=== PATIENT | female | born 1960 | race Caucasian/White ===

== ENCOUNTER → 2020-03-18 13:34 | Outpatient (CLI) | payer OTHER, SELFPAY | PROVIDERS: Visit Provider Physician Assistant | DX: L02.91 Cutaneous abscess, unspecified (principal) | CPT/HCPCS: 87070; 87077; 87147; 87186; 87205 ==

== ENCOUNTER → 2020-03-18 13:55 | Outpatient (CLI) | payer OTHER, SELFPAY ==
--- NOTE | 2020-03-18 14:02 | DI.RAD.S_ITS ---
PROCEDURE: XR FOOT LT MIN 3V INDICATIONS: ulceration bottom foot, r/o osteomyelitis TECHNIQUE: 3 views of the foot were acquired. COMPARISON: None. FINDINGS: Bones: Postsurgical changes are seen from amputation of the 2nd ray at the proximal interphalangeal joint. Chronic mild fracture deformity is seen at the 5th metatarsal shaft. Severe degenerative changes are seen at the 1st metatarsophalangeal joint with destruction and remodeling of the articular surfaces and mild medial subluxation of the 1st distal phalanx relative to the metatarsal head. Small osseous fragments are seen surrounding the 1st metatarsophalangeal joint. There is erosion of the third metatarsal head with degenerative changes at the 3rd metatarsophalangeal joint. Degenerative changes are seen in the interphalangeal joints throughout toes. Degenerative changes are seen at the tarsometatarsal joints. Soft tissues: Soft tissue edema is noted throughout the forefoot. Ulceration at the plantar aspect of the forefoot is seen on lateral view. IMPRESSION: Severe degenerative changes are seen at the 1st metatarsophalangeal joint that may be related to acute or chronic osteomyelitis and septic arthritis versus neuropathic arthropathy, prior trauma, or inflammatory arthropathy with secondary degenerative changes. There is also severe erosion of the 3rd metatarsal head. Recommend correlation clinical findings. MRI may be obtained for further evaluation if indicated clinically. Dictated by: Wilfrido Cisse M.D. on 03/18/2020 at 16:16 Approved by: Wilfrido Cisse M.D. on 03/18/2020 at 16:21
[2020-03-18 15:12] LABS: Hematocrit 31.8 % (36-46); Hemoglobin 10.4 g/dL (12.0-16.0); Mean Corpuscular HGB Conc 32.6 % (30-36); Mean Corpuscular Volume 92.3 fL (80-100); Platelet Count 245 X10^3/uL (150-400); Red Blood Cell Count 3.45 X10^6/uL (4.0-5.2); Red Cell Distribution Width 14.8 % (11.6-14.8); White Blood Cell Count 12.1 X10^3/uL (4.5-11.0)
[2020-03-18 15:35] LABS: BUN Creatinine Ratio 16.2 (6-22); Blood Urea Nitrogen 21 mg/dL (7-17); Calcium 9.2 mg/dL (8.4-10.2); Carbon Dioxide 37 mmol/L (22-32); Chloride 98 mmol/L (98-107); Estimated Glomerular Filt Rate 41.8 mL/min (>60); Glucose 92 mg/dL (80-110); HEMOLYSIS < 15 (0-50); Sodium 136 mmol/L (137-145)
[2020-03-18 15:39] LABS: Neutrophils Absolute Manual 8833 /uL (3000-5900); Platelet Estimate Adequate on smear; RBC Morphology Normal Morphology; Total Cells Counted 100
[2020-03-18 16:02] LABS: C-Reactive Protein Quant 13.8 mg/dL (<1.0)
[2020-03-18 18:13] LABS: Erythrocyte Sedimentation Rate 68 MM/HR (0-20)
== END ==
PROVIDERS: PCP Family Medicine; Referring Provider Physician Assistant; Visit Provider Physician Assistant
DX: L03.90 Cellulitis, unspecified (principal); M25.472 Effusion, left ankle; Z89.422 Acquired absence of other left toe(s)
CPT/HCPCS: 36415; 73630; 80048; 85025; 85651; 86140

== ENCOUNTER 2020-03-18 19:08 | Inpatient (IN) | payer OTHER, SELFPAY ==
[2020-03-18] VITALS (13 sets, daily range): BP systolic 103–143; BP diastolic 54–69; PULSE 65–80; RESP 14–32; TEMP 36.7; O2SAT 80–99
--- NOTE | 2020-03-18 20:36 | DI.RAD.S_ITS ---
PROCEDURE: XR CHEST 1V INDICATIONS: suspected sepsis TECHNIQUE: One view of the chest was acquired. COMPARISON: None. FINDINGS: Surgical changes and devices: None. Lungs and pleura: Lungs are clear. Platelike atelectasis in the left mid lung is noted. No pleural effusions or pneumothorax. Mediastinum: Mediastinal contours appear normal. Heart size is normal. Bones and chest wall: No suspicious bony lesions. Overlying soft tissues appear unremarkable. IMPRESSION: No acute cardiopulmonary abnormality. Dictated by: Cruz Severino M.D. on 03/18/2020 at 22:28 Approved by: Cruz Severino M.D. on 03/18/2020 at 22:29
[2020-03-18] MEDS: SODIUM CHLORIDE 0.9% 1,000 ML 1000 ML IV (21:17)
[2020-03-18 21:32] LABS: Add Manual Diff / Slide Review NO; Basophils Absolute Auto 0 /uL (0-100); Basophils Percent Auto 0.3 % (0-2); Eosinophils Absolute Auto 200 /uL (0-450); Eosinophils Percent Auto 1.3 % (2-4); Hematocrit 32.5 % (36-46); Hemoglobin 10.7 g/dL (12.0-16.0); Lymphocytes Absolute Auto 2100 /uL (1100-4500); Lymphocytes Percent Auto 17.9 % (25-40); Mean Corpuscular HGB Conc 32.9 % (30-36); Mean Corpuscular Hemoglobin 30.2 PG (26-34); Mean Corpuscular Volume 91.7 fL (80-100); Monocytes Absolute Auto 1300 /uL (0-900); Monocytes Percent Auto 10.7 % (3-14); Neutrophils Absolute Auto 8200 /uL (1500-7000); Neutrophils Percent Auto 69.8 % (50-75); Platelet Count 237 X10^3/uL (150-400); Red Blood Cell Count 3.54 X10^6/uL (4.0-5.2); White Blood Cell Count 11.8 X10^3/uL (4.5-11.0)
[2020-03-18 21:39] LABS: PTT Partial Thromboplastin Tim 29 SECONDS (26.4-36.2)
[2020-03-18 21:40] LABS: Alanine Aminotransferase 19 IU/L (<35); Albumin 3.8 g/dL (3.5-5.0); Albumin Globulin Ratio 1.2 (1.0-2.8); Alkaline Phosphatase 86 U/L (38-126); Aspartate Aminotransferase 28 IU/L (14-36); BUN Creatinine Ratio 19.5 (6-22); Bilirubin Total 0.3 mg/dL (0.2-1.3); Blood Urea Nitrogen 23 mg/dL (7-17); Calcium 9.2 mg/dL (8.4-10.2); Carbon Dioxide 34 mmol/L (22-32); Chloride 98 mmol/L (98-107); Estimated Glomerular Filt Rate 46.7 mL/min (>60); Globulin 3.1 g/dL (1.7-4.1); Glucose 93 mg/dL (80-110); Lipase 96 U/L (23-300); Sodium 135 mmol/L (137-145); Total Protein 6.9 g/dL (6.3-8.2)
[2020-03-18 21:43] LABS: HEMOLYSIS 16 (0-50)
[2020-03-18 21:50] LABS: Potassium 2.7 mmol/L (3.4-5.1)
[2020-03-18 22:03] LABS: Procalcitonin < 0.05 ng/mL (<0.5)
--- NOTE | 2020-03-18 22:17 | ED.RECABL ---
HPI - Recheck/Abnormal Lab/Rx General Chief Complaint: Recheck/Abnormal Lab/Rx Stated Complaint: infection in foot and kidney inection Time Seen by Provider: 03/18/20 22:17 Source: patient Mode of arrival: Ambulatory History of Present Illness HPI narrative: 60-year-old woman with a history of rheumatoid arthritis on biologics to control this, hypertension and hyperlipidemia presents with complaints of a left foot infection and after being seen at the urgent care clinic today noted to have hypokalemia and minor increase in her creatinine level. She was instructed to come to the emergency room to follow-up. She complains of no fevers, vomiting, diarrhea, chest pain, dyspnea, headaches, skin rashes or changes. She does note that her left forefoot is quite tender around the area of the ulcer that has developed in is draining slightly. Related Data Home Medications Medication Instructions Recorded Confirmed atorvastatin 20 mg PO DAILY 03/18/20 03/19/20 hydrochlorothiazide 25 mg PO DAILY 03/18/20 03/18/20 leflunomide 20 mg PO DAILY 03/18/20 03/18/20 metoprolol tartrate 50 mg BID 03/18/20 03/18/20 nortriptyline 50 mg PO DAILY 03/18/20 03/19/20 pregabalin 150 mg PO BID 03/18/20 03/19/20 tofacitinib [Xeljanz] 5 mg PO BID 03/18/20 03/19/20 varenicline [Chantix] BID 03/18/20 venlafaxine 37.5 mg PO BID 03/18/20 03/19/20 Previous Rx's Medication Instructions Recorded doxycycline hyclate 100 mg capsule 100 mg PO BID 7 Days #14 cap 03/18/20 mupirocin 2 % topical ointment 1 applic TOPICAL TID #30 g 03/18/20 Allergies Allergy/AdvReac Type Severity Reaction Status Date / Time No Known Drug Allergies Allergy Unverified 03/18/20 13:11 Review of Systems Review of Systems ROS Unobtainable: All systems reviewed & are unremarkable except as noted in HPI and below Patient History Medical History Hyperlipidemia Hypertension Rheumatoid arthritis Surgical History History of amputation of toe Family History Father Cancer Mother Hypertension Social History household members: significant other, family and children Smoking Status: Current every day smoker alcohol intake: current Smoking Status: Current every day smoker Exam Narrative Exam Narrative: General: Healthy appearing, in no acute distress. Able to give a complete and coherent history. Well-nourished well-developed HEENT: Moist mucous membranes, normal sclera with reactive pupils, Neck: No JVD, supple Respiratory: Lungs are clear to auscultation, no wheezing no rales no rhonchi. Full and symmetrical air movement Cardiac: Regular rate and rhythm no murmurs no bruits Abdomen: Soft, nontender, good bowel tones, no flank pain Skin: Warm and dry, no rashes Neurologic: Grossly neurologically intact with no obvious asymmetries or abnormalities Extremities: Left foot and ankle/lower calf are edematous. There is an approximately 1 cm in diameter wound to the bottom of the left forefoot that is open and with mild palpation expresses purulence material and it is clear that there is a deeper ulcer underneath. It is tender to the touch without surrounding erythema Psych: Cooperative, appropriate insight and affect Initial Vital Signs Initial Vital Signs: Vital Signs Temperature 98.0 F 03/18/20 19:20 Pulse Rate 68 03/18/20 19:20 Respiratory Rate 20 03/18/20 19:20 Blood Pressure 103/54 L 03/18/20 19:20 Pulse Oximetry 98 03/18/20 19:20 Course Orders Ordered: ED Orders 03/18/20 22:20 Blood Culture Stat 03/18/20 23:18 Education, smoking cessation ONGOING 03/18/20 23:23 Consult to Discharge Planning Routine Consult to Occupational Therapy Evaluate & Treat Consult to Physical Therapy Evaluate & Treat 03/18/20 23:45 COVID19 Stat 03/19/20 03:18 Wound Culture and Gram Stain Stat 03/19/20 04:52 Complete Blood Count AUTO DIFF DAILY Comprehensive Metabolic Panel DAILY Prothrombin Time INR DAILY Acetaminophen (Acetaminophen 325 Mg Tablet) 650 mg PO Q6HR PRN PRN Reason: Fever/Mild Pain (1-3) Atorvastatin Calcium (Atorvastatin 20 Mg Tablet) 20 mg PO DAILY [facility] Docusate Sodium (Docusate 100 Mg Capsule) 100 mg PO BID [facility] Enoxaparin Sodium (Enoxaparin 40 Mg/0.4 Ml Syringe) 40 mg SUBCUT DAILY [facility] Hydrochlorothiazide (Hydrochlorothiazide 25 Mg Tablet) 25 mg PO DAILY [facility] Hydromorphone HCl (Hydromorphone 0.5 Mg Inj) 0.5 mg IV Q15MIN PRN PRN Reason: Pain, Last Admin: 03/18/20 23:10 Dose: 0.5 mg Documented by: JOSE Hydromorphone HCl (Hydromorphone 0.5 Mg Inj) 0.5 mg IV Q6H PRN PRN Reason: Pain, Moderate (4-6) Last Admin: 03/19/20 01:48 Dose: 0.5 mg Documented by: NATHEN Sodium Chloride (Normal Saline 0.9%) 1,000 mls @ 100 mls/hr IV CONT [facility] Last Admin: 03/19/20 01:07 Dose: 100 mls/hr Documented by: NATHEN Mupirocin (Mupirocin 22 Gm Oint) 1 applic TOP TID [facility] Naloxone HCl (Naloxone 0.4 Mg/Ml Vial) 0.2 mg IV Q2MIN PRN PRN Reason: Opiate Reversal Nortriptyline HCl (Nortriptyline Hcl 25 Mg Capsule) 50 mg PO DAILY [facility] Ondansetron HCl (Ondansetron 4 Mg Odt) 4 mg PO Q8HR PRN PRN Reason: Nausea And Vomiting Oxycodone HCl (Oxycodone Ir 5 Mg Tablet) 5 mg PO Q6HR PRN PRN Reason: Pain, Moderate (4-6) Pantoprazole Sodium (Pantoprazole 20 Mg Tablet) 20 mg PO 0600 [facility] Last Admin: 03/19/20 05:43 Dose: 20 mg Documented by: NATHEN Pregabalin (Pregabalin 75 Mg Capsule) 150 mg PO BID [facility] Sennosides (Sennosides 8.6 Mg Tablet) 17.2 mg PO BEDTIME PRN PRN Reason: constipation Sodium Chloride (Sodium Chloride 0.9% Flush) 10 ml IV BID [facility] Sodium Chloride (Sodium Chloride 0.9% Flush) 10 ml IV PRN PRN PRN Reason: Flush Discontinued Medications Sodium Chloride (Normal Saline 0.9%) 1,000 mls @ 1,000 mls/hr IV BOLUS ONE Stop: 03/18/20 21:35 Last Infusion: 03/18/20 22:36 Dose: 0 mls/hr Documented by: Admin: 03/18/20 21:17 Dose: 1,000 mls/hr Documented by: JOSE Piperacillin Sod/Tazobactam (Sod 4.5 gm/ Sodium Chloride) 100 mls @ 200 mls/hr IV NOW ONE Stop: 03/18/20 23:14 Last Infusion: 03/18/20 23:45 Dose: 0 mls/hr Documented by: Admin: 03/18/20 23:05 Dose: 200 mls/hr Documented by: JOSE Metronidazole (Flagyl) 500 mg in 100 mls @ 100 mls/hr IV NOW ONE Stop: 03/18/20 23:44 Last Admin: 03/18/20 23:04 Dose: 100 mls/hr Documented by: JOSE Potassium Chloride 40 meq/ (Sodium Chloride) 520 mls @ 130 mls/hr IV NOW ONE Stop: 03/19/20 02:58 Last Infusion: 03/19/20 03:32 Dose: 130 mls/hr Documented by: NATHEN Cosigned by: ALEXIS Admin: 03/18/20 23:32 Dose: 130 mls/hr Documented by: JOSE Cosigned by: CHESTER Ondansetron HCl (Ondansetron 4 Mg/2 Ml Inj) 4 mg IV NOW ONE Stop: 03/18/20 22:46 Last Admin: 03/18/20 23:09 Dose: 4 mg Documented by: JOSE Potassium Chloride (Potassium Chloride 20 Meq Tab) 40 meq PO NOW ONE Stop: 03/18/20 22:59 Last Admin: 03/18/20 23:10 Dose: 40 meq Documented by: JOSE Vital Signs Vital signs: Vital Signs - 8 hr 03/18/20 22:30 03/18/20 22:42 03/18/20 22:43 Pulse Rate 69 78 80 Respiratory Rate 20 32 H 23 Blood Pressure 125/64 143/69 H Pulse Oximetry 03/18/20 23:00 03/18/20 23:01 03/18/20 23:30 Pulse Rate 71 70 71 Respiratory Rate 16 18 18 Blood Pressure 133/68 107/60 Pulse Oximetry 80 L 97 98 MDM - Recheck/Abnormal Lab/Rx Medical Records Attestation: I reviewed the patient's medical records. Lab Data Attestation: I reviewed the patient's lab results. Result diagrams: 03/19/20 04:52 03/19/20 04:52 Labs: Lab Results 03/18/20 03/18/20 03/18/20 Range/Units 21:20 21:20 21:20 WBC 11.8 H (4.5-11.0) X10^3/uL RBC 3.54 L (4.0-5.2) X10^6/uL Hgb 10.7 L (12.0-16.0) g/dL Hct 32.5 L (36-46) % MCV 91.7 (80-100) fL MCH 30.2 (26-34) PG MCHC 32.9 (30-36) % RDW 15.0 H (11.6-14.8) % Plt Count 237 (150-400) X10^3/uL Neut % (Auto) 69.8 (50-75) % Lymph % (Auto) 17.9 L (25-40) % Castro % (Auto) 10.7 (3-14) % Eos % (Auto) 1.3 L (2-4) % Baso % (Auto) 0.3 (0-2) % Neut # (Auto) 8200 H (9638-5526) /uL Lymph # (Auto) 2100 (7158-2600) /uL Castro # (Auto) 1300 H (0-900) /uL Eos # (Auto) 200 (0-450) /uL Baso # (Auto) 0 (0-100) /uL PT 11.0 (10.1-12.7) SECONDS INR 1.0 (0.9-1.3) APTT 29 (26.4-36.2) SECONDS Sodium (137-145) mmol/L Potassium (3.4-5.1) mmol/L Chloride (98-107) mmol/L Carbon Dioxide (22-32) mmol/L BUN (7-17) mg/dL Creatinine (0.52-1.04) mg/dL Estimated GFR (>60) mL/min BUN/Creatinine Ratio (6-22) Glucose (80-110) mg/dL Lactate (0.7-2.1) mmol/L Calcium (8.4-10.2) mg/dL Magnesium (1.6-2.3) mg/dL Total Bilirubin (0.2-1.3) mg/dL AST (14-36) IU/L ALT (<35) IU/L Alkaline Phosphatase (38-126) U/L Total Protein (6.3-8.2) g/dL Albumin (3.5-5.0) g/dL Globulin (1.7-4.1) g/dL Albumin/Globulin Ratio (1.0-2.8) Lipase (23-300) U/L Procalcitonin < 0.05 (<0.5) ng/mL SARS-CoV-2 (PCR) (Negative) 03/18/20 03/18/20 03/18/20 Range/Units 21:20 21:20 21:25 WBC (4.5-11.0) X10^3/uL RBC (4.0-5.2) X10^6/uL Hgb (12.0-16.0) g/dL Hct (36-46) % MCV (80-100) fL MCH (26-34) PG MCHC (30-36) % RDW (11.6-14.8) % Plt Count (150-400) X10^3/uL Neut % (Auto) (50-75) % Lymph % (Auto) (25-40) % Castro % (Auto) (3-14) % Eos % (Auto) (2-4) % Baso % (Auto) (0-2) % Neut # (Auto) (5423-2861) /uL Lymph # (Auto) (9880-0589) /uL Castro # (Auto) (0-900) /uL Eos # (Auto) (0-450) /uL Baso # (Auto) (0-100) /uL PT (10.1-12.7) SECONDS INR (0.9-1.3) APTT (26.4-36.2) SECONDS Sodium 135 L (137-145) mmol/L Potassium 2.7 L* (3.4-5.1) mmol/L Chloride 98 (98-107) mmol/L Carbon Dioxide 34 H (22-32) mmol/L BUN 23 H (7-17) mg/dL Creatinine 1.18 H (0.52-1.04) mg/dL Estimated GFR 46.7 L (>60) mL/min BUN/Creatinine Ratio 19.5 (6-22) Glucose 93 (80-110) mg/dL Lactate 1.0 (0.7-2.1) mmol/L Calcium 9.2 (8.4-10.2) mg/dL Magnesium 1.8 (1.6-2.3) mg/dL Total Bilirubin 0.3 (0.2-1.3) mg/dL AST 28 (14-36) IU/L ALT 19 (<35) IU/L Alkaline Phosphatase 86 (38-126) U/L Total Protein 6.9 (6.3-8.2) g/dL Albumin 3.8 (3.5-5.0) g/dL Globulin 3.1 (1.7-4.1) g/dL Albumin/Globulin Ratio 1.2 (1.0-2.8) Lipase 96 (23-300) U/L Procalcitonin (<0.5) ng/mL SARS-CoV-2 (PCR) (Negative) 03/18/20 Range/Units 23:45 WBC (4.5-11.0) X10^3/uL RBC (4.0-5.2) X10^6/uL Hgb (12.0-16.0) g/dL Hct (36-46) % MCV (80-100) fL MCH (26-34) PG MCHC (30-36) % RDW (11.6-14.8) % Plt Count (150-400) X10^3/uL Neut % (Auto) (50-75) % Lymph % (Auto) (25-40) % Castro % (Auto) (3-14) % Eos % (Auto) (2-4) % Baso % (Auto) (0-2) % Neut # (Auto) (4140-3783) /uL Lymph # (Auto) (3326-5054) /uL Castro # (Auto) (0-900) /uL Eos # (Auto) (0-450) /uL Baso # (Auto) (0-100) /uL PT (10.1-12.7) SECONDS INR (0.9-1.3) APTT (26.4-36.2) SECONDS Sodium (137-145) mmol/L Potassium (3.4-5.1) mmol/L Chloride (98-107) mmol/L Carbon Dioxide (22-32) mmol/L BUN (7-17) mg/dL Creatinine (0.52-1.04) mg/dL Estimated GFR (>60) mL/min BUN/Creatinine Ratio (6-22) Glucose (80-110) mg/dL Lactate (0.7-2.1) mmol/L Calcium (8.4-10.2) mg/dL Magnesium (1.6-2.3) mg/dL Total Bilirubin (0.2-1.3) mg/dL AST (14-36) IU/L ALT (<35) IU/L Alkaline Phosphatase (38-126) U/L Total Protein (6.3-8.2) g/dL Albumin (3.5-5.0) g/dL Globulin (1.7-4.1) g/dL Albumin/Globulin Ratio (1.0-2.8) Lipase (23-300) U/L Procalcitonin (<0.5) ng/mL SARS-CoV-2 (PCR) Negative (Negative) Imaging Data xr foot: Radiologist's Impression: FINDINGS: Bones: Postsurgical changes are seen from amputation of the 2nd ray at the proximal interphalangeal joint. Chronic mild fracture deformity is seen at the 5th metatarsal shaft. Severe degenerative changes are seen at the 1st metatarsophalangeal joint with destruction and remodeling of the articular surfaces and mild medial subluxation of the 1st distal phalanx relative to the metatarsal head. Small osseous fragments are seen surrounding the 1st metatarsophalangeal joint. There is erosion of the third metatarsal head with degenerative changes at the 3rd metatarsophalangeal joint. Degenerative changes are seen in the interphalangeal joints throughout toes. Degenerative changes are seen at the tarsometatarsal joints. Soft tissues: Soft tissue edema is noted throughout the forefoot. Ulceration at the plantar aspect of the forefoot is seen on lateral view. IMPRESSION: Severe degenerative changes are seen at the 1st metatarsophalangeal joint that may be related to acute or chronic osteomyelitis and septic arthritis versus neuropathic arthropathy, prior trauma, or inflammatory arthropathy with secondary degenerative changes. There is also severe erosion of the 3rd metatarsal head. Recommend correlation clinical findings. MRI may be obtained for further evaluation if indicated clinically. Dictated by: Wilfrido Cisse M.D. on 03/18/2020 at 16:16 Chest x-ray: Radiologist's Impression: FINDINGS: Surgical changes and devices: None. Lungs and pleura: Lungs are clear. Platelike atelectasis in the left mid lung is noted. No pleural effusions or pneumothorax. Mediastinum: Mediastinal contours appear normal. Heart size is normal. Bones and chest wall: No suspicious bony lesions. Overlying soft tissues appear unremarkable. IMPRESSION: No acute cardiopulmonary abnormality. Dictated by: Cruz Severino M.D. on 03/18/2020 at 22:28 ECG Data Attestation: I personally reviewed and interpreted this ECG as follows: Interpretation: Sinus rhythm, first-degree block, rate of 66 No acute ischemic changes Normal axis, normal interval MDM Narrative Medical decision making narrative: 60-year-old woman with a left foot ulcer currently on leflunomide to treat her rheumatoid arthritis with significant hypokalemia and developing foot ulcer with likely osteomyelitis involvement. Wound culture is sent from the emergency department. Potassium replacement is initiated. Fluids and antibiotics are started. Patient is admitted to the hospitalist service for initial care. Podiatry consult will likely be appropriate 1st thing in the morning. Wound does appear to need further debridement and more complete assessment regarding the possible osteomyelitis will be required. There is no evidence of sepsis at this time and she is safe for admission to the hospitalist service Discharge Plan Departure Patient Disposition: Admitted As Inpatient Clinical Impression: Hypokalemia Foot ulcer Qualifiers: Laterality: left Non-pressure ulcer stage: unspecified non-pressure ulcer stage Qualified Code(s): L97.529 - Non-pressure chronic ulcer of other part of left foot with unspecified severity Osteomyelitis Qualifiers: Osteomyelitis type: subacute Osteomyelitis location: foot Laterality: left Qualified Code(s): M86.272 - Subacute osteomyelitis, left ankle and foot Admit Date/Time: 03/18/20 23:57 Admit Provider: Maranda Leyva
[2020-03-18] MEDS: metroNIDAZOLE 500 MG/100 ML PIGGYBACK 100 MG IV (23:04)
[2020-03-18] MEDS: PIPERACILLIN/TAZO 4.5 GM in SODIUM CHLORIDE 0.9% 100 ML 200 ML IV (23:05)
[2020-03-18] MEDS: ONDANSETRON 4 MG/2 ML INJ IV (23:09)
[2020-03-18] MEDS: HYDROMORPHONE 0.5 MG INJ IV (23:10)
[2020-03-18] MEDS: POTASSIUM CHLORIDE 20 MEQ TAB 40 MEQ PO (23:10)
[2020-03-18] MEDS: POTASSIUM CHLORIDE 40 MEQ in SODIUM CHLORIDE 0.9% 500 ML 130 ML IV (23:32)
[2020-03-18 23:42] LABS: Magnesium 1.8 mg/dL (1.6-2.3)
[2020-03-19] VITALS (26 sets, daily range): BP systolic 101–145; BP diastolic 62–82; PULSE 71–90; RESP 11–20; TEMP 35.6–37; O2SAT 91–98; BMI 25.0; BMI 25.9
[2020-03-19 00:03] LABS: COVID19 -Nasal RAPID Negative (Negative)
[2020-03-19] MEDS: SODIUM CHLORIDE 0.9% 1,000 ML 100 ML IV (01:07)
[2020-03-19] MEDS: HYDROMORPHONE 0.5 MG INJ IV ×2 (01:48→08:36)
--- NOTE | 2020-03-19 03:22 | PC.NURSE ---
0050 Pt. admitted from ER accompanied by her significant other Saqib Saleh,. Oriented to her room showed her TV , call light & bed controls. Reported had a fall for the last couple months, placed on high fall precautions. Bed alarm activated & instructed not to get OOB without any assistance, Call light within reached. Left plantar foot 2 small wounds [employer] DIRECTOR reported ER MD already sent a wound culture. Picture was taken with pt's. permission. 2x2 dressing changed noted scant serosang. drainage. Lt foot also edematous & erythema noted on top of lt. foot. Medicated with 0.5 mg. of Dilaudid for pain, will cont. POC & monitor.
[2020-03-19 05:28] LABS: Prothrombin Time 11.2 SECONDS (10.1-12.7)
[2020-03-19 05:32] LABS: Alanine Aminotransferase 16 IU/L (<35); Albumin 3.1 g/dL (3.5-5.0); Alkaline Phosphatase 75 U/L (38-126); Aspartate Aminotransferase 21 IU/L (14-36); BUN Creatinine Ratio 19.4 (6-22); Bilirubin Total 0.3 mg/dL (0.2-1.3); Blood Urea Nitrogen 18 mg/dL (7-17); Calcium 8.3 mg/dL (8.4-10.2); Carbon Dioxide 33 mmol/L (22-32); Chloride 105 mmol/L (98-107); Estimated Glomerular Filt Rate > 60.0 mL/min (>60); Glucose 94 mg/dL (80-110); HEMOLYSIS < 15 (0-50); Potassium 3.8 mmol/L (3.4-5.1); Sodium 136 mmol/L (137-145); Total Protein 6.1 g/dL (6.3-8.2)
[2020-03-19 05:34] LABS: Add Manual Diff / Slide Review NO; Basophils Absolute Auto 0 /uL (0-100); Basophils Percent Auto 0.3 % (0-2); Eosinophils Absolute Auto 200 /uL (0-450); Eosinophils Percent Auto 1.7 % (2-4); Hematocrit 30.3 % (36-46); Hemoglobin 9.9 g/dL (12.0-16.0); Lymphocytes Absolute Auto 1800 /uL (1100-4500); Lymphocytes Percent Auto 18.1 % (25-40); Mean Corpuscular HGB Conc 32.8 % (30-36); Mean Corpuscular Hemoglobin 30.2 PG (26-34); Monocytes Absolute Auto 1000 /uL (0-900); Monocytes Percent Auto 9.9 % (3-14); Neutrophils Absolute Auto 6900 /uL (1500-7000); Platelet Count 230 X10^3/uL (150-400); Red Blood Cell Count 3.29 X10^6/uL (4.0-5.2); White Blood Cell Count 9.8 X10^3/uL (4.5-11.0)
[2020-03-19] MEDS: PANTOPRAZOLE 20 MG TABLET PO (05:43)
--- NOTE | 2020-03-19 06:01 | PM.HP.1 ---
History of Present Illness History of Present Illness Date Patient Seen: 03/18/20 Time Patient Seen: 23:25 Chief complaint: infection in foot and kidney inection Narrative: Patient is a 60-year-old female to Sendy Hollins who presented to the ED with 10 at a 10 left foot pain and ulceration. Patient has a history of rheumatoid arthritis, hypertension, and is a smoker who has decreased to 5 cigarettes a day and is currently taking Chantix, also notes a history of a toe amputation. Patient currently takes immunosuppressive drugs: Xeljimz & Leflunomide, along with nortriptyline and pregabalin for her RA. Patient notes that she has had increasing pain in her foot and developed minute of a foot ulcer she went to a walk-in clinic today and had labs done and an x-ray of her left foot, the clinic consequently contacted her at home to notify her that she needed to come to the emergency room. Patient notes that upon admit her pain is 3 to 4/10 following pain medication in the emergency room when it was 10/10, she has had body aches chills for approximately 1 week, and also of knee pain and swelling in the same leg. We were able to obtain x-rays from the outpatient clinic which demonstrated osteomyelitis of the left foot, ER went to examine the ulceration and was able to produce pus drainage, patient's vitals upon admit temp 98.7, BP 143/69, HR 78, RR 32, O2 saturation 99% on room air, WBC 11.8, HGB 10.7, HCT 32.5, sodium 135, K 2.7, bicarb 34, BUN 23, creatinine 1.18, glucose 93, lactate 1.0, lipase negative, procalcitonin 0.5, EGFR 46.7 , sofa score: 1. Patient History Medical History Hyperlipidemia Hypertension Rheumatoid arthritis Surgical History (Updated 03/19/20 @ 06:15 by WILFRED Teran) History of amputation of toe Family & Social History Family History Father Cancer Mother Hypertension Social History: household members significant other,family,children Prior Living Arrangements House Safety & Behavioral: Feels Safe in Current Yes Environment Been Physically Hurt or No Threatened By a Person Suicidal Ideation Description None Suicide Plan Description No Plan Tobacco & Substance use: Smoking Status Current every day smoker Smoking packs per day 5 alcohol intake current alcohol intake frequency 0-2 drinks per day Substance Use Type does not use Meds Home Medications and Allergies Home Medications Medication Instructions Recorded Confirmed Type atorvastatin 20 mg PO DAILY 03/18/20 03/19/20 History doxycycline hyclate 100 mg capsule 100 mg PO BID 7 Days #14 cap 03/18/20 03/18/20 Rx hydrochlorothiazide 25 mg PO DAILY 03/18/20 03/18/20 History leflunomide 20 mg PO DAILY 03/18/20 03/18/20 History metoprolol tartrate 50 mg BID 03/18/20 03/18/20 History mupirocin 2 % topical ointment 1 applic TOPICAL TID #30 g 03/18/20 03/18/20 Rx nortriptyline 50 mg PO DAILY 03/18/20 03/19/20 History pregabalin 150 mg PO BID 03/18/20 03/19/20 History tofacitinib [Xeljanz] 5 mg PO BID 03/18/20 03/19/20 History varenicline [Chantix] BID 03/18/20 History venlafaxine 37.5 mg PO BID 03/18/20 03/19/20 History Allergies Allergy/AdvReac Type Severity Reaction Status Date / Time No Known Drug Allergies Allergy Unverified 03/18/20 13:11 Review of Systems Review of Systems ROS: Yes All systems reviewed with the patient and are negative except as otherwise documented Constitutional Constitutional: Reports body ache(s), Reports fatigue and Reports poor appetite Eyes Eyes: Reports system reviewed and no additional complaints, except as documented ENT Ears, Nose, Mouth, and Throat: Yes system reviewed and no additional complaints, except as documented Cardiovascular Cardiovascular: Reports system reviewed and no additional complaints, except as documented Respiratory Respiratory: Reports system reviewed and no additional complaints, except as documented Gastrointestinal Gastrointestinal: Reports system reviewed and no additional complaints, except as documented Genitourinary Genitourinary: Reports system reviewed and no additional complaints, except as documented Musculoskeletal Musculoskeletal: Reports arthralgias, Reports joint swelling, Reports limited range of motion and Reports stiffness Comments: Pain swelling and ulceration to left foot- Integumentary/Breasts Skin/Breast: Reports system reviewed and no additional complaints, except as documented Neurologic Neurologic: Reports system reviewed and no additional complaints, except as documented Psychiatric Psychiatric: Reports system reviewed and no additional complaints, except as documented Endocrine Endocrine: Reports system reviewed and no additional complaints, except as documented and Reports fatigue Hematologic/Lymphatic Hematologic/Lymphatic: Reports system reviewed and no additional complaints, except as documented Allergic/Immunologic Allergic/Immunologic: Reports system reviewed and no additional complaints, except as documented Exam Vital Signs (past 8 hours): - 03/18/20 22:30 03/18/20 22:42 03/18/20 22:43 Temperature Pulse Rate 69 78 80 Respiratory Rate 20 32 H 23 Blood Pressure 125/64 143/69 H Pulse Oximetry 03/18/20 23:00 03/18/20 23:01 03/18/20 23:30 Temperature Pulse Rate 71 70 71 Respiratory Rate 16 18 18 Blood Pressure 133/68 107/60 Pulse Oximetry 80 L 97 98 03/19/20 00:00 03/19/20 00:15 03/19/20 00:30 Temperature Pulse Rate 71 73 Respiratory Rate 16 19 Blood Pressure 116/62 111/67 Pulse Oximetry 97 98 97 03/19/20 01:16 03/19/20 04:00 03/19/20 04:45 Temperature 97.9 F 97.4 F L Pulse Rate 73 74 Respiratory Rate 16 18 Blood Pressure 115/67 101/65 Pulse Oximetry 98 96 93 Oxygen Delivery Method Room Air Oxygen Flow Rate 0 Narrative Exam Narrative: General: Patient is a well-developed, well-nourished in no distress at this time. HEENT: Normocephalic, atraumatic, extraocular muscles intact, oral pharynx is clear and mucous membranes are moist. Neck is supple and symmetric, trachea is midline, no adenopathy, no thyroid enlargement, nontender, no masses palpated. Negative for JVD Chest: Normal AP diameter and contour without kyphoscoliosis, no nasal flaring, retractions, or tachypneic labored Lungs: Auscultation of all lung [place] are clear without adventitious sounds, wheezes, rhonchi, or rales. Cardio: S1 & S2 with regular rate and rhythm without murmur, rubs, or gallops, no carotid bruit, no cardiac pulsations present. Abdomen: Soft nontender, negative for organomegaly, or masses. Bowel sounds are present in all 4 quadrants without guarding or rebound, no CVA tenderness. Musculoskeletal: Noted grows peripheral edema to left lower leg and foot with an ulceration to the left 100 ft towards the left side under the dorsum, superficial topical ulceration is approximately 1 cm in diameter deeper diameter appears to be approximately 3 centimetres, puss discharge expressed in the ER without I&D. Full range of motion intact radial and pedal pulses are normal. Skin: Warm dry and intact without rashes, ulcerations or petechiae with the exception of the left foot and lower leg. Neuro: Alert and orientated x3, sensation to touch intact, no gross deficits noted of cranial nerves. Psych: Patient has a well-kept appearance, appropriate affect, mental status attitude thought context and judgment are appropriate for age. Objective Labs Result Diagrams: 03/19/20 04:52 03/19/20 04:52 Labs: Laboratory Results - last 24 hr 03/18/20 03/18/20 03/18/20 21:20 21:20 21:20 WBC 11.8 H RBC 3.54 L Hgb 10.7 L Hct 32.5 L MCV 91.7 MCH 30.2 MCHC 32.9 RDW 15.0 H Plt Count 237 Neut % (Auto) 69.8 Lymph % (Auto) 17.9 L [place] % (Auto) 10.7 Eos % (Auto) 1.3 L Baso % (Auto) 0.3 Neut # (Auto) 8200 H Lymph # (Auto) 2100 [place] # (Auto) 1300 H Eos # (Auto) 200 Baso # (Auto) 0 PT 11.0 INR 1.0 APTT 29 Sodium Potassium Chloride Carbon Dioxide BUN Creatinine Estimated GFR BUN/Creatinine Ratio Glucose Lactate Calcium Magnesium Total Bilirubin AST ALT Alkaline Phosphatase Total Protein Albumin Globulin Albumin/Globulin Ratio Lipase Procalcitonin < 0.05 SARS-CoV-2 (PCR) 03/18/20 03/18/20 03/18/20 21:20 21:20 21:25 WBC RBC Hgb Hct MCV MCH MCHC RDW Plt Count Neut % (Auto) Lymph % (Auto) [place] % (Auto) Eos % (Auto) Baso % (Auto) Neut # (Auto) Lymph # (Auto) [place] # (Auto) Eos # (Auto) Baso # (Auto) PT INR APTT Sodium 135 L Potassium 2.7 L* Chloride 98 Carbon Dioxide 34 H BUN 23 H Creatinine 1.18 H Estimated GFR 46.7 L BUN/Creatinine Ratio 19.5 Glucose 93 Lactate 1.0 Calcium 9.2 Magnesium 1.8 Total Bilirubin 0.3 AST 28 ALT 19 Alkaline Phosphatase 86 Total Protein 6.9 Albumin 3.8 Globulin 3.1 Albumin/Globulin Ratio 1.2 Lipase 96 Procalcitonin SARS-CoV-2 (PCR) 03/18/20 03/19/20 03/19/20 23:45 04:52 04:52 WBC 9.8 RBC 3.29 L Hgb 9.9 L Hct 30.3 L MCV 92.0 MCH 30.2 MCHC 32.8 RDW 15.0 H Plt Count 230 Neut % (Auto) 70.0 Lymph % (Auto) 18.1 L [place] % (Auto) 9.9 Eos % (Auto) 1.7 L Baso % (Auto) 0.3 Neut # (Auto) 6900 Lymph # (Auto) 1800 [place] # (Auto) 1000 H Eos # (Auto) 200 Baso # (Auto) 0 PT 11.2 INR 1.0 APTT Sodium Potassium Chloride Carbon Dioxide BUN Creatinine Estimated GFR BUN/Creatinine Ratio Glucose Lactate Calcium Magnesium Total Bilirubin AST ALT Alkaline Phosphatase Total Protein Albumin Globulin Albumin/Globulin Ratio Lipase Procalcitonin SARS-CoV-2 (PCR) Negative 03/19/20 04:52 WBC RBC Hgb Hct MCV MCH MCHC RDW Plt Count Neut % (Auto) Lymph % (Auto) [place] % (Auto) Eos % (Auto) Baso % (Auto) Neut # (Auto) Lymph # (Auto) [place] # (Auto) Eos # (Auto) Baso # (Auto) PT INR APTT Sodium 136 L Potassium 3.8 Chloride 105 Carbon Dioxide 33 H BUN 18 H Creatinine 0.93 Estimated GFR > 60.0 BUN/Creatinine Ratio 19.4 Glucose 94 Lactate Calcium 8.3 L Magnesium Total Bilirubin 0.3 AST 21 ALT 16 Alkaline Phosphatase 75 Total Protein 6.1 L Albumin 3.1 L Globulin 3.0 Albumin/Globulin Ratio 1.0 Lipase Procalcitonin SARS-CoV-2 (PCR) Assessment & Plan Assessment & Plan narrative: This patient requires acute care inpatient hospital management for left foot ulceration/osteomyelitis rule out sepsis. After failing outpatient management of foot ulceration. The patient is at much higher risk for medical and surgical complications because of a diagnosis of rheumatoid arthritis in which she takes immunosuppressive medications. These factors increase the difficulty and complexity of medical and surgical interventions and increases the chances of poor outcomes such as morbidity and mortality, as well as complications such as septicemia, septic shock. The patient's history of tobacco abuse will likely impact her oxygenation, which will likely further impair her ability to heal and recover. 1.Left foot ulceration/osteomyelitis rule out sepsis, secondary leukocytosis, acute, present on admission -patient needs podiatry consult in the a.m. -left foot x-ray:IMPRESSION:Severe degenerative changes are seen at the 1st metatarsophalangeal joint that may be related to acute or chronic osteomyelitis and septic arthritis versus neuropathic arthropathy, prior trauma, or inflammatory arthropathy with secondary degenerative changes. There is also severe erosion of the 3rd metatarsal head. Recommend correlation clinical findings. MRI may be obtained for further evaluation if indicated clinically. -vitals upon admit temp 98.7, BP 143/69, HR 78, RR 32, O2 saturation 99% on room air, WBC 11.8, HGB 10.7, HCT 32.5, sodium 135, K 2.7, bicarb 34, BUN 23, creatinine 1.18, glucose 93, lactate 1.0, lipase negative, procalcitonin 0.5, EGFR 46.7 , sofa score: 1. -patient to be monitored on tele medicine, vital signs q.4 hours, intake and output monitored Q shift, weight measure daily, diet: NPO-awaiting Podiatry evaluation possible surgical candidate -IV fluid normal saline 100 cc/hour, patient received Zosyn dose in emergency room, will continue Zosyn 4.5 mg q.6 hours and vancomycin per pharmacy protocol -labs ordered: Blood cultures x2 pending, daily CMP, CBC, lactate, procalcitonin, CRP, UA -MRI ordered of left foot -consults ordered physical therapy, occupational therapy. -prevention vaccine 2. Hypokalemia, acute, present on admission -K on admit 2.7 -patient received 40 mEq oral potassium and 40 mEq IV in ER repeat potassium in a.m. 3. Rheumatoid arthritis, control unknown, present on admission -will hold Xeljimz & Leflunomide medications for Podiatry consult, will continue patient's nortriptyline and pregabalin 4. Hypertension, acute on chronic, present on admission -will hold patient's metoprolol at this time due to risk for hypotension, will continue HCTZ. Code status: Full Surrogate/plan of care: Spouse COVID PCR: Negative VTE prophylaxis: Enoxaparin 40 mg Scores GCS Lucian coma scale eye opening: Spontaneous [place] coma scale verbal response: Orientated Lucian coma scale motor response: Obey commands Lucian coma scale total score: 15 SOFA PaO2/FIO2: >=400 mmHg Platelets: >= 150 Bilirubin: < 1.2 mg/dL Hypotension: MAP >= 70 mmHg [place] Coma Scale: 15 Renal: Creatinine 1.2-1.9 mg/dL SOFA Score: 1 Wells' Criteria for PE Clinical signs and symptoms of DVT: No PE is #1 Dx or equally likely: No Heart rate > 100: No Immobilization at least 3 days or surg in previous 4 weeks: No History of PE or DVT: No Hemoptysis: No Malignancy w/Treatment within 6 months or palliative: No Wells' PE Score total: 0 Quality VTE Deep Vein Thrombosis/Pulmonary Embolism Present on Admission: No
--- NOTE | 2020-03-19 06:45 | DI.MRI.S_ITS ---
PROCEDURE: MR FOOT LT WO/W CON INDICATIONS: Osteomyelitis left foot TECHNIQUE: Noncontrast coronal T1 spin echo and STIR, sagittal T1 spin echo with fat saturation and STIR, axial T1 spin echo and T2 fast spin echo with fat saturation. After the administration of contrast, axial/sagittal/coronal T1 spin echo with fat saturation through the left foot . COMPARISON: [facility], CR, XR FOOT LT MIN 3V, 03/18/2020, 14:31. FINDINGS: Image quality: Excellent. Bones: Severe osteoarthritic changes involving 1st MTP joint is seen with lateral subluxation at 1st MTP joint. Extensive erosion and remodeling, and prominent marginal osteophyte formation. Mild contrast enhancement within 1st metatarsal head is seen. No significant joint effusion. No significant marrow edema is noted in distal 1st metatarsal head or adjacent 1st proximal phalangeal base. Small calcifications are seen within 1st MTP joint adjacent to medial and lateral aspect of 1st metatarsal head which may represent synovial chondromatosis. There are osteoarthritic changes in 2nd and 3rd TMT joints with joint space narrowing, subchondral sclerosis and cyst formation and mild subchondral edema. No discrete fracture line or bony erosive changes are seen. Marrow edema is noted involving distal shaft and head of 3rd metatarsal bone with erosion involving plantar aspect of 3rd metatarsal head. Marrow edema is also seen in adjacent 3rd proximal and middle phalanges with subtle erosion seen involving plantar aspect of 3rd proximal phalangeal base. There is dorsal dislocation at 3rd MTP joint. No fracture line is seen. Heterogeneous contrast enhancement within 3rd MTP joint is likely present. There is surrounding moderate amount of MTP joint effusion. No other area of abnormal marrow signal is noted. Soft tissues: Full-thickness ulceration involving plantar aspect of 3rd MTP joint is noted with extensive surrounding soft tissue edema and swelling. No discrete drainable abscess collection is identified. Heterogeneous contrast enhancement is noted in this region. No soft tissue masses are visualized. The scanned muscles demonstrate normal overall bulk and internal signal. IMPRESSION: 1. Full-thickness ulceration involving plantar aspect of 3rd MTP joint with extensive cellulitis. No discrete drainable abscess collection. 2. Suggestion of osteomyelitis involving underlying distal shaft and head of 3rd metatarsal bone and 3rd proximal phalanx. Possible osteomyelitis in 3rd middle phalanx. Bony erosive changes in plantar aspect of 3rd metatarsal head and 3rd proximal phalangeal base. No fracture. Dorsal dislocation at 3rd MTP joint. 3. Severe osteoarthritic changes involving 1st MTP joint with slight lateral subluxation. No fracture or dislocation. No significant joint effusion. Extensive erosive changes and remodeling at 1st MTP joint which could represent changes secondary to osteoarthritis versus erosion secondary to inflammatory arthropathy, suggest clinical correlation. Multiple calcifications within 1st MTP joint capsule which may represent synovial chondromatosis. 4. Moderate osteoarthritic changes at 2nd and 3rd MTP joints without bony erosion or adjacent soft tissue edema to suggest osteomyelitis. Dictated by: Sharath Reyes M.D. on 03/19/2020 at 9:12 Approved by: Sharath Reyes M.D. on 03/19/2020 at 9:27
[2020-03-19 07:34] LABS: C-Reactive Protein Quant 14.3 mg/dL (<1.0); Procalcitonin < 0.05 ng/mL (<0.5)
[2020-03-19] MEDS: OXYCODONE IR 5 MG TABLET PO ×3 (07:43→21:15)
[2020-03-19 08:05] LABS: Appearance Urine UA CLEAR; Bilirubin Urine UA NEGATIVE (NEGATIVE); Color Urine UA YELLOW; Glucose Urine UA NEGATIVE (Negative); Ketones Urine UA NEGATIVE (NEGATIVE); Leukocyte Esterase Urine UA NEGATIVE (NEGATIVE); Nitrite Urine UA NEGATIVE (Negative); Occult Blood Urine UA TRACE-LYSED (Negative); Protein Urine UA NEGATIVE (Negative); Urobilinogen Urine UA 0.2 E.U./dL (0.2)
[2020-03-19 08:20] LABS: Bacteria Urine Few (2-10); Culture Indicated Urine Cult Not Indicated; RBC Urine 0-1/HPF (0-5/HPF); Squamous Epithelial Cell Urine 0-1 /HPF (0-5/HPF); WBC Urine 0-1/HPF (0-5/HPF)
[2020-03-19] MEDS: PIPERACILLIN-TAZO 4.5 GM/100 ML FROZ.PIGGY IV (08:35)
[2020-03-19] MEDS: ENOXAPARIN 40 MG/0.4 ML SYRINGE SUBCUT (08:35)
[2020-03-19] MEDS: ACETAMINOPHEN 325 MG TABLET 650 MG PO (08:36)
[2020-03-19] MEDS: PREGABALIN 75 MG CAPSULE 150 MG PO (08:36)
[2020-03-19] MEDS: DOCUSATE 100 MG CAPSULE PO ×2 (08:36→20:33)
[2020-03-19] MEDS: SODIUM CHLORIDE 0.9% FLUSH 10 ML IV (08:39)
--- NOTE | 2020-03-19 09:19 | PT-IP ANOTE ---
Per Dr. Stark, pt on hold for PT at this time due to further tests needed. will f/u.
--- NOTE | 2020-03-19 09:55 | OT.IPNOTE ---
Per Dr. Stark, hold for OT eval at this time and needing more medical work up at this time.
[2020-03-19] MEDS: MUPIROCIN 22 GM OINT 1 APPLIC TOP ×2 (10:00→13:32)
[2020-03-19] MEDS: VANCOMYCIN 1,500 MG/300 ML PIGGYBACK 200 MG IV (10:34)
--- NOTE | 2020-03-19 11:03 | DI.US.S_ITS ---
PROCEDURE: US ARTERIAL DUPLEX LE BI INDICATIONS: nonhealing ulcer TECHNIQUE: Color and pulse Doppler interrogation was performed of both lower extremity arterial systems, with image documentation. COMPARISON: None. FINDINGS: Right lower extremity: Common femoral artery: 146 cm/sec. Deep femoral artery: 80 cm/sec. Proximal superficial femoral artery: 119 cm/sec. Mid superficial femoral artery: 115 cm/sec. Distal superficial femoral artery: 115 cm/sec. Popliteal artery: 68 cm/sec. Posterior tibial artery: 77 cm/sec. Anterior tibial artery/dorsalis pedis: 61,56 cm/sec. Sinclair-scale imaging description: No significant plaque. No stenosis. All waveforms biphasic or triphasic. Left lower extremity: Common femoral artery: 125 cm/sec. Deep femoral artery: 94 cm/sec. Proximal superficial femoral artery: 113 cm/sec. Mid superficial femoral artery: 83 cm/sec. Distal superficial femoral artery: 95 cm/sec. Popliteal artery: 95 cm/sec. Posterior tibial artery: 71 cm/sec. Anterior tibial artery/dorsalis pedis: 93, 58 cm/sec. Sinclair-scale imaging description: No significant plaque. No stenosis. All waveforms biphasic or triphasic. IMPRESSION: 1. No evidence of inflow disease. 2. Bilateral lower extremity arterial ultrasound demonstrates widely patent vessels. Dictated by: Ken Cuellar M.D. on 03/19/2020 at 12:59 Approved by: Ken Cuellar M.D. on 03/19/2020 at 13:07
[2020-03-19 11:28] LABS: Hemoglobin A1C% w Est Avg Glu 5.7 % (4.0-6.0)
--- NOTE | 2020-03-19 12:00 | PT-IP ANOTE ---
Talked to Dr. Stark and stated that pt will be on hold for PT until he gets more information regarding pt's foot tomorrow. stated that pt will be going to the OR today.
[2020-03-19] MEDS: PIPERACILLIN-TAZO 3.375 GM/50 ML FROZ.PIGGY IV ×2 (13:30→20:33)
[2020-03-19 14:53] LABS: Lactate (Lactic Acid) 0.9 mmol/L (0.7-2.1)
--- NOTE | 2020-03-19 15:28 | CM.DPNOTE ---
DCP ASSESSMENT: Patient is a pleasant 60 year-old female with left foot ulceration/osteomyelitis r/o sepsis. [facility] PCP is Eric Guardado. Primary payer is: [employer] out of State and self pay. Patient has had failed outside management of ulcer. Patient is scheduled for an I&D of left foot in the evening of 03/19/20. GLENN and GLENN Student met with patient at bedside with significant other present. Educated and provided information regarding the role of SW and D/C planning. Patient confirmed she is independent with ADL's including driving. She lives at home with significant other. PLAN: CM team to closely follow for D/C planning. Unclear at this time if patient will need IV antibiotics. Therapy evaluations anticipated after procedure prior to D/C. GLENN Yu MSW Student Discharge Planning/Care Management Discharge Assessment Start: 03/19/20 15:25 Freq: Status: Active Protocol: Document 03/19/20 15:25 AL (Rec: 03/19/20 15:27 AL [id number]) Discharge Planning Assessment Assigned Machine Operator Cane Cutter GLENN Pendleton Student Contact Information delroy Card other # Advance Directives? No Advance Directives on File No History Provided By Patient,Significant Other, Medical Record Has Patient been admitted in last 30 No days? Prior Living Arrangements House Household Members significant other,family, children Type of transporation used prior to Drives own vehicle admit Willing to Return to Facility? No Independent with ADL's Yes Is patient alert and oriented? Yes Caregiver for Another No Barriers to Discharge No Discharge Plan Home Transportation Arrangement Significant other Saqib Saleh will provide transportation upon D/C Whiteboard Updated in Patient Room with Yes name and ext. # of Machine Operator Cane Cutter Review Status In Process
--- NOTE | 2020-03-19 15:57 | PM.HP.1 ---
History of Present Illness History of Present Illness Date Patient Seen: 03/19/20 Time Patient Seen: 12:57 Chief complaint: infection in foot and kidney inection Narrative: This is a pleasant 60-year-old with known rheumatoid arthritis who has had problems with her foot in the past. She has a foot problem which she thought was probably a plantar's wart. Her Boyfriend thought he saw drainage. She went to urgent care where was obviously draining infectious appearing materials from her foot. She is currently on medications for rheumatoid arthritis. She notes chronic problems with her left great toe and she says she does not put any weight on that because of the deformity in her foot. She denies a history of diabetes. She is a longstanding smoker about 40 years with up to a pack a day who is currently on [place] and has cut back on smoking to about 5 cigarettes a day. Patient History Medical History Hyperlipidemia Hypertension Rheumatoid arthritis Surgical History History of amputation of toe Family & Social History Family History Father Cancer Mother Hypertension Social History: household members significant other,family,children Prior Living Arrangements House Safety & Behavioral: Feels Safe in Current Yes Environment Been Physically Hurt or No Threatened By a Person Suicidal Ideation Description None Suicide Plan Description No Plan Tobacco & Substance use: Smoking Status Current every day smoker Smoking packs per day 5 alcohol intake current alcohol intake frequency 0-2 drinks per day Substance Use Type does not use Meds Home Medications and Allergies Home Medications Medication Instructions Recorded Confirmed Type atorvastatin 20 mg PO DAILY 03/18/20 03/19/20 History doxycycline hyclate 100 mg capsule 100 mg PO BID 7 Days #14 cap 03/18/20 03/18/20 Rx hydrochlorothiazide 25 mg PO DAILY 03/18/20 03/18/20 History leflunomide 20 mg PO DAILY 03/18/20 03/18/20 History metoprolol tartrate 50 mg BID 03/18/20 03/18/20 History mupirocin 2 % topical ointment 1 applic TOPICAL TID #30 g 03/18/20 03/18/20 Rx nortriptyline 50 mg PO DAILY 03/18/20 03/19/20 History pregabalin 150 mg PO BID 03/18/20 03/19/20 History tofacitinib [Xeljanz] 5 mg PO BID 03/18/20 03/19/20 History varenicline [Chantix] BID 03/18/20 History venlafaxine 37.5 mg PO BID 03/18/20 03/19/20 History Allergies Allergy/AdvReac Type Severity Reaction Status Date / Time lisinopril Allergy Severe angioedema Verified 03/19/20 15:57 Review of Systems Review of Systems Narrative: Denies recent fevers or chills, moderate pain in the foot, denies urinary frequency or dysuria Exam Vital Signs (past 8 hours): - 03/19/20 08:00 03/19/20 09:50 03/19/20 12:00 Temperature 98.6 F 98.1 F Pulse Rate 90 80 Respiratory Rate 18 18 Blood Pressure 145/76 H 130/70 Pulse Oximetry 93 93 94 Oxygen Delivery Method Room Air Oxygen Flow Rate 0 Narrative Exam Narrative: HEENT T is benign she is alert she is oriented to pleasant and conversant, lungs are clear, cor regular rate and rhythm, abdomen soft and benign, obvious swelling on the plantar aspect of the left foot with an open sore with purulence drainage and moderate swelling on the dorsum, adequate capillary refill, slightly decreased dorsalis pedis pulse, foot is warm and viable, pain with attempted range of motion of the hallux, pain with range of motion of the 3rd MTP joint Objective Labs Result Diagrams: 03/19/20 04:52 03/19/20 04:52 Labs: Laboratory Results - last 24 hr 03/18/20 03/18/20 03/18/20 21:20 21:20 21:20 WBC 11.8 H RBC 3.54 L Hgb 10.7 L Hct 32.5 L MCV 91.7 MCH 30.2 MCHC 32.9 RDW 15.0 H Plt Count 237 Neut % (Auto) 69.8 Lymph % (Auto) 17.9 L [place] % (Auto) 10.7 Eos % (Auto) 1.3 L Baso % (Auto) 0.3 Neut # (Auto) 8200 H Lymph # (Auto) 2100 [place] # (Auto) 1300 H Eos # (Auto) 200 Baso # (Auto) 0 PT 11.0 INR 1.0 APTT 29 Sodium Potassium Chloride Carbon Dioxide BUN Creatinine Estimated GFR BUN/Creatinine Ratio Glucose Hemoglobin A1c Lactate Calcium Magnesium Total Bilirubin AST ALT Alkaline Phosphatase C-Reactive Protein Total Protein Albumin Globulin Albumin/Globulin Ratio Lipase Procalcitonin < 0.05 Urine Color Urine Appearance Urine pH Ur Specific [place] Urine Protein Urine Glucose (UA) Urine Ketones Urine Occult Blood Urine Nitrate Urine Bilirubin Urine Urobilinogen Ur Leukocyte Esterase Urine RBC Urine WBC Ur Squamous Epith Cells Urine Bacteria Ur Culture Indicated? SARS-CoV-2 (PCR) 03/18/20 03/18/20 03/18/20 21:20 21:20 21:25 WBC RBC Hgb Hct MCV MCH MCHC RDW Plt Count Neut % (Auto) Lymph % (Auto) [place] % (Auto) Eos % (Auto) Baso % (Auto) Neut # (Auto) Lymph # (Auto) [place] # (Auto) Eos # (Auto) Baso # (Auto) PT INR APTT Sodium 135 L Potassium 2.7 L* Chloride 98 Carbon Dioxide 34 H BUN 23 H Creatinine 1.18 H Estimated GFR 46.7 L BUN/Creatinine Ratio 19.5 Glucose 93 Hemoglobin A1c Lactate 1.0 Calcium 9.2 Magnesium 1.8 Total Bilirubin 0.3 AST 28 ALT 19 Alkaline Phosphatase 86 C-Reactive Protein Total Protein 6.9 Albumin 3.8 Globulin 3.1 Albumin/Globulin Ratio 1.2 Lipase 96 Procalcitonin Urine Color Urine Appearance Urine pH Ur Specific [place] Urine Protein Urine Glucose (UA) Urine Ketones Urine Occult Blood Urine Nitrate Urine Bilirubin Urine Urobilinogen Ur Leukocyte Esterase Urine RBC Urine WBC Ur Squamous Epith Cells Urine Bacteria Ur Culture Indicated? SARS-CoV-2 (PCR) 03/18/20 03/19/20 03/19/20 23:45 04:50 04:50 WBC RBC Hgb Hct MCV MCH MCHC RDW Plt Count Neut % (Auto) Lymph % (Auto) [place] % (Auto) Eos % (Auto) Baso % (Auto) Neut # (Auto) Lymph # (Auto) [place] # (Auto) Eos # (Auto) Baso # (Auto) PT INR APTT Sodium Potassium Chloride Carbon Dioxide BUN Creatinine Estimated GFR BUN/Creatinine Ratio Glucose Hemoglobin A1c Lactate Calcium Magnesium Total Bilirubin AST ALT Alkaline Phosphatase C-Reactive Protein 14.3 H Total Protein Albumin Globulin Albumin/Globulin Ratio Lipase Procalcitonin < 0.05 Urine Color Urine Appearance Urine pH Ur Specific [place] Urine Protein Urine Glucose (UA) Urine Ketones Urine Occult Blood Urine Nitrate Urine Bilirubin Urine Urobilinogen Ur Leukocyte Esterase Urine RBC Urine WBC Ur Squamous Epith Cells Urine Bacteria Ur Culture Indicated? SARS-CoV-2 (PCR) Negative 03/19/20 03/19/20 03/19/20 04:50 04:52 04:52 WBC 9.8 RBC 3.29 L Hgb 9.9 L Hct 30.3 L MCV 92.0 MCH 30.2 MCHC 32.8 RDW 15.0 H Plt Count 230 Neut % (Auto) 70.0 Lymph % (Auto) 18.1 L [place] % (Auto) 9.9 Eos % (Auto) 1.7 L Baso % (Auto) 0.3 Neut # (Auto) 6900 Lymph # (Auto) 1800 [place] # (Auto) 1000 H Eos # (Auto) 200 Baso # (Auto) 0 PT 11.2 INR 1.0 APTT Sodium Potassium Chloride Carbon Dioxide BUN Creatinine Estimated GFR BUN/Creatinine Ratio Glucose Hemoglobin A1c 5.7 Lactate Calcium Magnesium Total Bilirubin AST ALT Alkaline Phosphatase C-Reactive Protein Total Protein Albumin Globulin Albumin/Globulin Ratio Lipase Procalcitonin Urine Color Urine Appearance Urine pH Ur Specific [place] Urine Protein Urine Glucose (UA) Urine Ketones Urine Occult Blood Urine Nitrate Urine Bilirubin Urine Urobilinogen Ur Leukocyte Esterase Urine RBC Urine WBC Ur Squamous Epith Cells Urine Bacteria Ur Culture Indicated? SARS-CoV-2 (PCR) 03/19/20 03/19/20 03/19/20 04:52 07:25 14:23 WBC RBC Hgb Hct MCV MCH MCHC RDW Plt Count Neut % (Auto) Lymph % (Auto) [place] % (Auto) Eos % (Auto) Baso % (Auto) Neut # (Auto) Lymph # (Auto) [place] # (Auto) Eos # (Auto) Baso # (Auto) PT INR APTT Sodium 136 L Potassium 3.8 Chloride 105 Carbon Dioxide 33 H BUN 18 H Creatinine 0.93 Estimated GFR > 60.0 BUN/Creatinine Ratio 19.4 Glucose 94 Hemoglobin A1c Lactate 0.9 Calcium 8.3 L Magnesium Total Bilirubin 0.3 AST 21 ALT 16 Alkaline Phosphatase 75 C-Reactive Protein Total Protein 6.1 L Albumin 3.1 L Globulin 3.0 Albumin/Globulin Ratio 1.0 Lipase Procalcitonin Urine Color Yellow Urine Appearance Clear Urine pH 6.0 Ur Specific [place] 1.020 Urine Protein Negative Urine Glucose (UA) Negative Urine Ketones Negative Urine Occult Blood Trace-lysed Urine Nitrate Negative Urine Bilirubin Negative Urine Urobilinogen 0.2 Ur Leukocyte Esterase Negative Urine RBC 0-1/hpf Urine WBC 0-1/hpf Ur Squamous Epith Cells 0-1 /hpf Urine Bacteria Few (2-10) H Ur Culture Indicated? Cult not indicated SARS-CoV-2 (PCR) x-rays show severe destruction of the hallux MTP joint with obvious significant deformity, there is also moderate destruction of the 3rd metatarsal head with dorsal subluxation of the toe arterial vascular studies do not show significant occlusion Assessment & Plan Assessment & Plan narrative: left foot ulcer with a deep abscess and destruction of the 3rd MTP joint likely ongoing osteomyelitis, rheumatoid arthritis with severe foot deformity and fairly severe rheumatoid destruction of the MTP joint. Immunosuppression secondary to her DMARD medications for rheumatoid arthritis. Longstanding smoker but no arterial evidence of major occlusion. Possible small vessel disease. No known history of diabetes. I have recommended irrigation and debridement with a plan to debride the plantar ulcer and send biopsies of likely the metatarsal head. I talked to her in detail today that I think she probably needs on reconstructive foot surgery in order to increase the weight-bearing through her MTP joint and ultimately I would like her to see our command and control specialist Dr. Vazquez but will work on getting her acute infection under control. She may need follow-up in the [facility]ound [facility]. Quality VTE Deep Vein Thrombosis/Pulmonary Embolism Present on Admission: No
[2020-03-19] MEDS: LACTATED RINGERS 1,000 ML 42 ML IV (16:03)
--- NOTE | 2020-03-19 16:16 | PM.PN.1 ---
Subjective Subjective Date Patient Seen: 03/19/20 Time Patient Seen: 16:16 Interval history: Sendy Hollins is a 60-year-old female with a past medical history of rheumatoid arthritis on immunosuppressive therapy, hypertension, active smoker who presented with left foot pain to the emergency room. She was noted to have an ulceration and deformity of changes on her x-ray. MRI was performed today which revealed possible osteomyelitis. Orthopedic surgery, Dr. Saleh, was consulted and the patient is currently undergoing an incision and drainage of her left foot. Patient was started on Zosyn and vancomycin. Initial cultures in the emergency room are currently growing Staph aureus and a coag-negative staph. Repeat cultures will be taken in the operating room as well. The patient was seen prior to her incision and drainage, she complained of continued left foot pain. She denies any fevers, chills, nausea, vomiting, abdominal pain, swelling beyond her left foot. Exam Vital Signs (past 8 hours): - 03/19/20 09:50 03/19/20 12:00 03/19/20 15:57 Temperature 98.1 F 97.6 F Pulse Rate 80 75 Respiratory Rate 18 15 Blood Pressure 130/70 133/78 Pulse Oximetry 93 94 95 Oxygen Delivery Method Room Air Oxygen Flow Rate 0 Narrative Exam Narrative: General: Patient is a well-developed, well-nourished in no distress at this time. HEENT: Normocephalic, atraumatic, extraocular muscles intact, oral pharynx is clear and mucous membranes are moist. Neck is supple and symmetric, trachea is midline, no adenopathy, no thyroid enlargement, nontender, no masses palpated. Negative for JVD Chest: Normal AP diameter and contour without kyphoscoliosis, no nasal flaring, retractions, or tachypneic labored Lungs: Auscultation of all lung [place] are clear without adventitious sounds, wheezes, rhonchi, or rales. Cardio: S1 & S2 with regular rate and rhythm without murmur, rubs, or gallops, no carotid bruit, no cardiac pulsations present. Abdomen: Soft nontender, negative for organomegaly, or masses. Bowel sounds are present in all 4 quadrants without guarding or rebound, no CVA tenderness. Musculoskeletal: peripheral edema to left ankle and foot. Swollen 3rd digit with gross deformity, erythema, and warmth. Tender throughout the L foot. Active drainage from the plantar aspect of L foot near callus formation. Skin: Warm dry and intact without rashes, ulcerations or petechiae with the exception of the left foot and lower leg. Neuro: Alert and orientated x3, sensation to touch intact, no gross deficits noted of cranial nerves. Psych: Patient has a well-kept appearance, appropriate affect, mental status attitude thought context and judgment are appropriate for age. Objective Labs Result Diagrams: 03/19/20 04:52 03/19/20 04:52 Labs: Laboratory Results - last 24 hr 03/18/20 03/18/20 03/18/20 21:20 21:20 21:20 WBC 11.8 H RBC 3.54 L Hgb 10.7 L Hct 32.5 L MCV 91.7 MCH 30.2 MCHC 32.9 RDW 15.0 H Plt Count 237 Neut % (Auto) 69.8 Lymph % (Auto) 17.9 L [place] % (Auto) 10.7 Eos % (Auto) 1.3 L Baso % (Auto) 0.3 Neut # (Auto) 8200 H Lymph # (Auto) 2100 [place] # (Auto) 1300 H Eos # (Auto) 200 Baso # (Auto) 0 PT 11.0 INR 1.0 APTT 29 Sodium Potassium Chloride Carbon Dioxide BUN Creatinine Estimated GFR BUN/Creatinine Ratio Glucose Hemoglobin A1c Lactate Calcium Magnesium Total Bilirubin AST ALT Alkaline Phosphatase C-Reactive Protein Total Protein Albumin Globulin Albumin/Globulin Ratio Lipase Procalcitonin < 0.05 Urine Color Urine Appearance Urine pH Ur Specific [place] Urine Protein Urine Glucose (UA) Urine Ketones Urine Occult Blood Urine Nitrate Urine Bilirubin Urine Urobilinogen Ur Leukocyte Esterase Urine RBC Urine WBC Ur Squamous Epith Cells Urine Bacteria Ur Culture Indicated? SARS-CoV-2 (PCR) 03/18/20 03/18/20 03/18/20 21:20 21:20 21:25 WBC RBC Hgb Hct MCV MCH MCHC RDW Plt Count Neut % (Auto) Lymph % (Auto) [place] % (Auto) Eos % (Auto) Baso % (Auto) Neut # (Auto) Lymph # (Auto) [place] # (Auto) Eos # (Auto) Baso # (Auto) PT INR APTT Sodium 135 L Potassium 2.7 L* Chloride 98 Carbon Dioxide 34 H BUN 23 H Creatinine 1.18 H Estimated GFR 46.7 L BUN/Creatinine Ratio 19.5 Glucose 93 Hemoglobin A1c Lactate 1.0 Calcium 9.2 Magnesium 1.8 Total Bilirubin 0.3 AST 28 ALT 19 Alkaline Phosphatase 86 C-Reactive Protein Total Protein 6.9 Albumin 3.8 Globulin 3.1 Albumin/Globulin Ratio 1.2 Lipase 96 Procalcitonin Urine Color Urine Appearance Urine pH Ur Specific [place] Urine Protein Urine Glucose (UA) Urine Ketones Urine Occult Blood Urine Nitrate Urine Bilirubin Urine Urobilinogen Ur Leukocyte Esterase Urine RBC Urine WBC Ur Squamous Epith Cells Urine Bacteria Ur Culture Indicated? SARS-CoV-2 (PCR) 03/18/20 03/19/20 03/19/20 23:45 04:50 04:50 WBC RBC Hgb Hct MCV MCH MCHC RDW Plt Count Neut % (Auto) Lymph % (Auto) [place] % (Auto) Eos % (Auto) Baso % (Auto) Neut # (Auto) Lymph # (Auto) [place] # (Auto) Eos # (Auto) Baso # (Auto) PT INR APTT Sodium Potassium Chloride Carbon Dioxide BUN Creatinine Estimated GFR BUN/Creatinine Ratio Glucose Hemoglobin A1c Lactate Calcium Magnesium Total Bilirubin AST ALT Alkaline Phosphatase C-Reactive Protein 14.3 H Total Protein Albumin Globulin Albumin/Globulin Ratio Lipase Procalcitonin < 0.05 Urine Color Urine Appearance Urine pH Ur Specific [place] Urine Protein Urine Glucose (UA) Urine Ketones Urine Occult Blood Urine Nitrate Urine Bilirubin Urine Urobilinogen Ur Leukocyte Esterase Urine RBC Urine WBC Ur Squamous Epith Cells Urine Bacteria Ur Culture Indicated? SARS-CoV-2 (PCR) Negative 03/19/20 03/19/20 03/19/20 04:50 04:52 04:52 WBC 9.8 RBC 3.29 L Hgb 9.9 L Hct 30.3 L MCV 92.0 MCH 30.2 MCHC 32.8 RDW 15.0 H Plt Count 230 Neut % (Auto) 70.0 Lymph % (Auto) 18.1 L [place] % (Auto) 9.9 Eos % (Auto) 1.7 L Baso % (Auto) 0.3 Neut # (Auto) 6900 Lymph # (Auto) 1800 [place] # (Auto) 1000 H Eos # (Auto) 200 Baso # (Auto) 0 PT 11.2 INR 1.0 APTT Sodium Potassium Chloride Carbon Dioxide BUN Creatinine Estimated GFR BUN/Creatinine Ratio Glucose Hemoglobin A1c 5.7 Lactate Calcium Magnesium Total Bilirubin AST ALT Alkaline Phosphatase C-Reactive Protein Total Protein Albumin Globulin Albumin/Globulin Ratio Lipase Procalcitonin Urine Color Urine Appearance Urine pH Ur Specific [place] Urine Protein Urine Glucose (UA) Urine Ketones Urine Occult Blood Urine Nitrate Urine Bilirubin Urine Urobilinogen Ur Leukocyte Esterase Urine RBC Urine WBC Ur Squamous Epith Cells Urine Bacteria Ur Culture Indicated? SARS-CoV-2 (PCR) 03/19/20 03/19/20 03/19/20 04:52 07:25 14:23 WBC RBC Hgb Hct MCV MCH MCHC RDW Plt Count Neut % (Auto) Lymph % (Auto) [place] % (Auto) Eos % (Auto) Baso % (Auto) Neut # (Auto) Lymph # (Auto) [place] # (Auto) Eos # (Auto) Baso # (Auto) PT INR APTT Sodium 136 L Potassium 3.8 Chloride 105 Carbon Dioxide 33 H BUN 18 H Creatinine 0.93 Estimated GFR > 60.0 BUN/Creatinine Ratio 19.4 Glucose 94 Hemoglobin A1c Lactate 0.9 Calcium 8.3 L Magnesium Total Bilirubin 0.3 AST 21 ALT 16 Alkaline Phosphatase 75 C-Reactive Protein Total Protein 6.1 L Albumin 3.1 L Globulin 3.0 Albumin/Globulin Ratio 1.0 Lipase Procalcitonin Urine Color Yellow Urine Appearance Clear Urine pH 6.0 Ur Specific [place] 1.020 Urine Protein Negative Urine Glucose (UA) Negative Urine Ketones Negative Urine Occult Blood Trace-lysed Urine Nitrate Negative Urine Bilirubin Negative Urine Urobilinogen 0.2 Ur Leukocyte Esterase Negative Urine RBC 0-1/hpf Urine WBC 0-1/hpf Ur Squamous Epith Cells 0-1 /hpf Urine Bacteria Few (2-10) H Ur Culture Indicated? Cult not indicated SARS-CoV-2 (PCR) PFSH Medical History Hyperlipidemia Hypertension Rheumatoid arthritis Surgical History History of amputation of toe Family History Father Cancer Mother Hypertension Social History household members: significant other, family and children Smoking Status: Current every day smoker alcohol intake: current Assessment & Plan Assessment & Plan narrative: Sendy Hollins is a 60-year-old female with a past medical history of rheumatoid arthritis on immunosuppressive therapy, hypertension, active smoker who presented with left foot pain to the emergency room. She was noted to have an ulceration and deformity of changes on her x-ray. MRI was performed today which revealed possible osteomyelitis, currently in the OR with orthopedic surgery for I&D. 1.Left foot ulceration/osteomyelitis, acute, present on admission -left foot x-ray: Severe degenerative changes at the 1st metatarsophalangeal joint. There is also severe erosion of the 3rd metatarsal head. . -MRI with probable osteomyelitis of 3rd MTP joint. -Dr. Saleh with orthopedic surgery currently performing I&D in the OR. She may need reconstructive surgery to increase weight bearing in her MTP joint but will need to see a regulatory law specialist. Appreciate Dr. Saleh's time and recommendations. -Likely will need PICC placement and 6 weeks of IV antibiotics should blood cultures return negative and once cultures are finalized. -wound cultures with staph aureus and coag negative staph. Follow up surgical cultures as well. -will continue Zosyn 4.5 mg q.6 hours and vancomycin per pharmacy protocol, consider narrowing once cultures finalize. -PT/OT evaluations tomorrow. -arterial duplex unremarkable. - A1c 5.7%. 2. Hypokalemia, acute, present on admission -K on admit 2.7 -patient received 40 mEq oral potassium and 40 mEq IV in ER repeat potassium in a.m. 3. Rheumatoid arthritis, control unknown, present on admission -will hold Xeljimz & Leflunomide medications for now given acute infection, will continue patient's nortriptyline and pregabalin 4. Hypertension, acute on chronic, present on admission -held patient's metoprolol at this time due to risk for hypotension, will continue HCTZ. Resume home metoprolol this evening. Code status: Full Surrogate/plan of care: Spouse COVID PCR: Negative VTE prophylaxis: Enoxaparin 40 mg Quality VTE Deep Vein Thrombosis/Pulmonary Embolism Present on Admission: No
--- NOTE | 2020-03-19 16:48 | SUR.OPER ---
Supine on padded OR bed, head on pillow, arms secured on padded arm boards at <90 degrees abduction, legs uncrossed, safety belt at thigh, tape over blanket over right lower leg, left leg draped free with bump under thigh.
--- NOTE | 2020-03-19 17:21 | PM.OP.1 ---
Operative Date/Time/Diagnoses Date of procedure: 03/19/20 Time of procedure: 14:09 Pre-op diagnosis: left foot ulcer Post-op diagnosis: same Procedure & Clinicians Procedure: Left foot irrigation and debridement with debridement of infected third toe proximal phalanx Same procedure as scheduled: Yes Indications: this is a 60-year-old female with a history of rheumatoid arthritis who presented with an infected foot ulcer is brought the operating room for irrigation and debridement. Both her plain x-rays and MRI scan suggested osteomyelitis with an infected 3rd toe MTP joint. Surgeon: Latrice Saleh Anesthesia Type: General Operative Notes Findings: foot ulcer with clear communication with the 3rd toe proximal phalanx and MTP joint, gross pus and softened bone Closure Type: not applicable Specimen(s): other ( swab cultures and bone cultures) Estimated Blood Loss (mL): 50 Blood products transfused: none Tourniquet time (min): 23 Procedure in detail: patient is brought to the operating room and underwent the induction of a general anesthesia. Her left lower extremities prepped and draped standard sterile fashion. A time-out was performed. She was on antibiotics including Unasyn and vancomycin preoperatively which were continued. The leg was elevated and the tourniquet was inflated. Patient had a plantar wound which was deep with gross purulence. It was meticulously incised dissection was carried out down to the bone. It clearly communicated with the MTP joint and the proximal phalanx. Patient's foot was dorsiflexed and the softened prominent bone was resected and sent for deep cultures. Swabs of the deep pus were also sent. All abnormal bone consistent with osteomyelitis was meticulously debrided. I specifically loaded her foot and attempted to further smooth any bony prominences. A hemostat was also used to dissect and make sure there were no additional pus pockets. The wound was meticulously irrigated with normal saline. It was packed with iodoform gauze. Wound was dressed sterilely. Patient tolerated the procedure well was transferred recovery room in satisfactory condition. Complications: none Post-operative Condition: stable Disposition: Acute Care Plan for aftercare: continue IV antibiotics. Check wound cultures especially bone culture. Consultation with the Wound Service. Limited weight-bearing on the left lower extremity use a roll about. Dressing changes and wound care when infection is stabilized. Anticipate possible long-term reconstructive foot surgery depending upon patient's course.
[2020-03-19] MEDS: HYDROMORPHONE 2 MG INJ IV (17:52)
[2020-03-19] MEDS: ONDANSETRON 4 MG/2 ML INJ IV (17:53)
--- NOTE | 2020-03-19 18:31 | SUR.PHASEI ---
Attempted to call report to receiving nurse, who is unavailable at this time. Patient resting quietly in bed with no distress noted. RR even and unlabored.
[2020-03-19] MEDS: LACTATED RINGERS 1,000 ML 125 ML IV (19:32)
[2020-03-19] MEDS: VENLAFAXINE 37.5 MG TABLET PO (20:32)
[2020-03-19] MEDS: ASPIRIN EC 81 MG TABLET PO (20:33)
[2020-03-19] MEDS: ACETAMINOPHEN 325 MG TABLET 975 MG PO (20:33)
[2020-03-19] MEDS: VANCOMYCIN 1,000 MG/200 ML PIGGYBACK 200 MG IV (21:12)
[2020-03-20] MEDS: PIPERACILLIN-TAZO 3.375 GM/50 ML FROZ.PIGGY IV ×2 (02:28→07:44)
[2020-03-20] MEDS: OXYCODONE IR 5 MG TABLET PO ×4 (02:28→20:34)
[2020-03-20 04:00] VITALS: BP 126/75; PULSE 72; RESP 16; TEMP 36.5; O2SAT 93
[2020-03-20 05:52] LABS: Hematocrit 32.7 % (36-46); Hemoglobin 10.5 g/dL (12.0-16.0); Mean Corpuscular HGB Conc 32.1 % (30-36); Mean Corpuscular Hemoglobin 29.9 PG (26-34); Mean Corpuscular Volume 93.2 fL (80-100); Platelet Count 276 X10^3/uL (150-400); Red Blood Cell Count 3.51 X10^6/uL (4.0-5.2); Red Cell Distribution Width 14.9 % (11.6-14.8); White Blood Cell Count 9.5 X10^3/uL (4.5-11.0)
[2020-03-20] MEDS: PANTOPRAZOLE 20 MG TABLET PO (06:02)
--- NOTE | 2020-03-20 07:22 | P.PN_ITS ---
Subjective Subjective Date Patient Seen: 03/20/20 Time Patient Seen: 07:22 Interval history: Pain is mild. Denies fever or chills. No nausea or vomiting. Exam Vital Signs (past 8 hours): - 03/19/20 23:52 03/20/20 04:00 Temperature 97.8 F 97.7 F Pulse Rate 75 72 Respiratory Rate 16 16 Blood Pressure 133/76 126/75 Pulse Oximetry 95 93 Oxygen Delivery Method Nasal Cannula Oxygen Flow Rate 0 Narrative Exam Narrative: 60-year-old female resting comfortably in bedside chair in no apparent distress. Dressing is intact. Able to wiggle all toes. Scant blood on the dressing. Objective Labs Result Diagrams: 03/20/20 05:12 03/19/20 04:52 Labs: Laboratory Results - last 24 hr 03/19/20 03/19/20 03/19/20 04:50 04:50 04:50 WBC RBC Hgb Hct MCV MCH MCHC RDW Plt Count Hemoglobin A1c 5.7 Lactate C-Reactive Protein 14.3 H Procalcitonin < 0.05 Urine Color Urine Appearance Urine pH Ur Specific [place] Urine Protein Urine Glucose (UA) Urine Ketones Urine Occult Blood Urine Nitrate Urine Bilirubin Urine Urobilinogen Ur Leukocyte Esterase Urine RBC Urine WBC Ur Squamous Epith Cells Urine Bacteria Ur Culture Indicated? 03/19/20 03/19/20 03/20/20 07:25 14:23 05:12 WBC 9.5 RBC 3.51 L Hgb 10.5 L Hct 32.7 L MCV 93.2 MCH 29.9 MCHC 32.1 RDW 14.9 H Plt Count 276 Hemoglobin A1c Lactate 0.9 C-Reactive Protein Procalcitonin Urine Color Yellow Urine Appearance Clear Urine pH 6.0 Ur Specific [place] 1.020 Urine Protein Negative Urine Glucose (UA) Negative Urine Ketones Negative Urine Occult Blood Trace-lysed Urine Nitrate Negative Urine Bilirubin Negative Urine Urobilinogen 0.2 Ur Leukocyte Esterase Negative Urine RBC 0-1/hpf Urine WBC 0-1/hpf Ur Squamous Epith Cells 0-1 /hpf Urine Bacteria Few (2-10) H Ur Culture Indicated? Cult not indicated SOURCE: Foot Lt ENTR: 03/19/20-[address]: Eric Banda MD, Natalie [facility] FAX TO: ORDERED: WOUND Cx and GS COMMENTS: Comment left third metatarsal fluid Procedure Result Verified Site Gram Stain Final 03/19/20- 2014 White blood cells Occasional poly WBC Gram Positive Cocci 1+ Aerobic Culture for wounds Pending Anaerobic Culture Pending [facility] Medical History Hyperlipidemia Hypertension Rheumatoid arthritis Surgical History History of amputation of toe Family History Father Cancer Mother Hypertension Social History household members: significant other, family and children Smoking Status: Current every day smoker alcohol intake: current Assessment & Plan Post-op Postoperative Procedures: Procedures Operation Date: 03/19/20 20:00 Actual Procedures Side Surgeon p I&D foot Left Latricejem Saleh MD Postop day 1 status post left foot irrigation and debridement with debridement of infected 3rd toe proximal phalanx. Continue IV antibiotics. Waiting for final results of wound cultures a specially bone culture. Consultation requested by wound services. Patient will be limited weight-bearing on the left lower extremity. Dressing changes and wound care per wound care services. Quality VTE Deep Vein Thrombosis/Pulmonary Embolism Present on Admission: No
[2020-03-20] MEDS: LACTATED RINGERS 1,000 ML 125 ML IV (07:45)
[2020-03-20 08:00] VITALS: BP 144/83; PULSE 78; RESP 17; TEMP 37.1; O2SAT 95
[2020-03-20] MEDS: VENLAFAXINE 37.5 MG TABLET PO ×2 (08:20→20:34)
[2020-03-20] MEDS: ASPIRIN EC 81 MG TABLET PO ×2 (08:20→20:34)
[2020-03-20] MEDS: DOCUSATE 100 MG CAPSULE PO ×2 (08:22→20:35)
[2020-03-20] MEDS: ACETAMINOPHEN 325 MG TABLET 975 MG PO ×3 (08:22→20:34)
[2020-03-20] MEDS: VANCOMYCIN 1,000 MG/200 ML PIGGYBACK 200 MG IV (09:00)
--- NOTE | 2020-03-20 10:55 | PT.IIE ---
Current Diagnoses Non-pressure chronic ulcer of skin of other sites with unspecified severity (03/18/20) Surgery Performed Operation Date: 03/19/20 20:00 Actual Procedures p I&D foot(Left) - Latrice Slaeh MD Surgical History (Last Reviewed 03/20/20 @ 07:23 by Alonzo Valverde PA-C) History of amputation of toe Medical History (Last Reviewed 03/20/20 @ 07:23 by Alonzo Valverde PA-C) Hyperlipidemia Hypertension Rheumatoid arthritis Physical Therapy Inpatient Evaluation/Re-Eval M1 PT/OT-IP Prior Functional Status Start: 03/20/20 12:10 Freq: NEEDED Status: Active Protocol: Document 03/20/20 10:55 AB (Rec: 03/20/20 12:56 AB [id number]) Medical Review Prior Functional Status Medical History Reviewed Yes Communication able to make needs known Mobility and Gait pt stated that she is independent with all mobilities and ambulation without AD Social History Household Members spouse Living Arrangements House Number of Floors (Floors) One Floor Number of Stairs To Enter/Railing? 3 steps to enter from the back Home Environment Standard Height Toilet,Tub/ Shower Home Equipment Front Wheel Walker,Hand Held Shower Employment Status Retired M2 PT-IP Current Condition Start: 03/20/20 12:10 Freq: NEEDED Status: Active Protocol: Document 03/20/20 10:55 AB (Rec: 03/20/20 12:56 AB [id number]) Physical Therapy Current Condition Current Condition Evaluation Date 03/20/20 Treatment Diagnosis L foot I&D; difficulty in walking Onset Date Weight Bearing Status Weight Bearing Status Touch Down Weight Bearing Allowed Weight Bearing Amount (enter % LLE TTWB or #) (%) M3 PT-IP Subjective Start: 03/20/20 12:10 Freq: NEEDED Status: Active Protocol: Document 03/20/20 10:55 AB (Rec: 03/20/20 12:56 AB [id number]) Subjective Physical Therapy Visit Type Type Initial Evaluation Visit Start Time 10:55 Visit Stop Time 11:35 Total Visit Minutes 40 Notes dave ARCHER ordered WBAT on LLE but also mentioned about limited weight bearing on LLE. opted to have pt be NWB for safety until clarification obtained from dave ARCHER. Called dave ARCHER ~1210pm and stated that pt will be TTWB on LLE. Number of CHEF BROILER OR FRY Visits 0 Physical Therapy Visit Comments Patient Comments pt is agreeable to do PT Therapy Pain Assessment Pain When Pain Assessed At Rest Pain Present Pain Present Pain Reported Location Left Foot Intensity 5 Scale Used Numeric (0 - 10) Pain Management Techniques Distraction,Modification of Treatment,Re-positioning, Timing of Activity with Medications M4 PT-IP Mobility and Gait Start: 03/20/20 12:10 Freq: NEEDED Status: Active Protocol: Document 03/20/20 10:55 AB (Rec: 03/20/20 12:56 AB [id number]) PT-Bed Mobility Assessment Supine to Sit Supine to Sit Standby Assistance Sit to Supine Sit to Supine Standby Assistance PT-Transfer Assessment Sit to and From Stand Sit to and from Stand Contact Guard Assistance Equipment Transfer Assistive Device Gait Belt,Front Wheeled Walker Orthotic/Prosthetic Devices or Brace: No Comments Mobility Comments informed pt regarding weight bearing on LLE and stated that the PA told her NWB on LLE. informed pt that NWB will be safest for not until clarification is obtained from the doctor. pt agreed. pt completed bed mobility supine to sit SBA completed sit to stand CGA and ambulated in room ~ 20 ft min A and cues NWB on LLE. pt can be impulsive and tends to push FWW too far away from her. pt requested to go back to bed and completed sit to supine SBA. positioned in bed. call light and table placed within reach. informed pt regarding ortho MD recommending a rollabout/knee scooter. pt stated that she does not think she wants a rollabout due to her balance issues. informed ortho MD. informed pt and spouse regarding equipement needs: ramp to enter the house, tub transfer bench, grab bar next to the toilet and a w/c for long distance mobility. spouse stated ivanna he has a portable ramp. DME list given to spouse in order to obtain other DME needs. called ortho MD after PT session for clarification of weight bearing and stated that pt is TTWB on LLE. Gait Assessment Gait Gait Assistance Required: Minimum Assistance Distance (Feet) 20 Able to Maintain Weight Bearing Status Yes During Gait Assistive Devices Assistive Device Gait Belt,Front Wheeled Walker Orthotic/Prosthetic Devices or Brace: No Factors Limiting Gait Function Factors Limiting Gait Function Decreased Activity Tolerance, Decreased Strength,Limited Range of Motion,Pain,Poor Balance,Poor Safety Awareness Comments Gait Comments completed ambulation NWB on LLE until clarification for LLE weight bearing status PT-Balance Assessment Sitting Balance and Reactions Static Sitting Balance Ability Good Dynamic Sitting Balance Ability Good Standing Balance and Reactions Static Standing Balance Ability Fair Dynamic Standing Balance Ability Fair Device Used FWW M5 PT-IP Objective Assessments Start: 03/20/20 12:10 Freq: NEEDED Status: Active Protocol: Document 03/20/20 10:55 AB (Rec: 03/20/20 12:56 [id number]) Orientation Orientation/Cognition Level of Alertness Alert Orientation Name,Place,Situation Language Function Ability No Deficits Noted Safety Awareness Decreased Safety Awareness Memory Description No Deficits Noted Gross Range of Motion Lower Extremity ROM Assessment Within Functional Limits Impairments ankle not tested: on a soft cast Strength Lower Extremity Strength Ankle L ankle not tested: on a soft cast Sensation Assessment Sensation Gross Sensation Left LE Impaired Light Touch Impaired Proprioception (Position) Impaired Sensation Description Numbness Comments Sensation Comments L foot numbness Muscle Tone Muscle Tone WNL Yes M6 PT-IP Treatment Start: 03/20/20 12:10 Freq: NEEDED Status: Active Protocol: Document 03/20/20 10:55 AB (Rec: 03/20/20 12:56 AB [id number]) Physical Therapy Treatment Education Education Provided Weight Bearing Status,Safety M7 PT-IP Assessment and Plan Start: 03/20/20 12:10 Freq: NEEDED Status: Active Protocol: Document 03/20/20 10:55 AB (Rec: 03/20/20 12:56 [id number]) PT Summary Assessment and Plan Potential Rehabilitation Potential Good Status of Condition at Evaluation Stable Summary Impairments Pain,ROM,Strength,Balance, Coordination,Sensation,Tone, Cognition,Bed Mobility, Transfers,Gait,Activity Tolerance Assessment Summary pt requiring CGA to min A with mobility and plans to go home with spouse to assist her. informed pt and spouse regarding equipement needs and is aware. will continue to assess progress. Goals Bed Mobility Goal Independent Transfer Goal Independent,Front Wheeled Walker Gait Goal Independent,Front Wheel Walker Gait Distance 50 Days to Meet Goals 5 Frequency of Treatment Frequency Of Treatment Once a Day Treatment Plan Physical Therapy Treatment Plan Bed Mobility Training,Transfer Training,Gait Training, Therapeutic Exercise,Balance Retraining,Post Op Education, Discharge Planning,Hot or Cold Pack,Neuromuscular Re-ed, Coordination Retraining Other Recommendations and Next Treatment ambulation, caregiver training Focus when appropriate Recommendations To Nursing Amount of Assist Needed 1 Person Assist Discharge Recommendations PT Discharge Recommendations Home with Assistance Transportation Needs at Discharge Private Vehicle
[2020-03-20] MEDS: PREGABALIN 75 MG CAPSULE 150 MG PO ×2 (10:57→20:35)
[2020-03-20] MEDS: hydroCHLOROthiazide 25 MG TABLET PO (10:58)
[2020-03-20] MEDS: METOPROLOL IR 50 MG TABLET PO ×2 (11:00→20:34)
[2020-03-20 11:01] VITALS: BP 153/81; PULSE 79; O2SAT 94
--- NOTE | 2020-03-20 13:56 | DI.RAD.S_ITS ---
PROCEDURE: XR CHEST FOR PICC 1V INDICATIONS: line palcement COMPARISON: [facility], CR, XR CHEST 1V, 03/18/2020, 21:30. FINDINGS: PICC was placed by the intravenous therapy team from the left side. Fluoroscopic spot film demonstrates the tip of PICC projecting to the area of superior cavoatrial junction. IMPRESSION: Tip of PICC projects to the area of the superior cavoatrial junction. Dictated by: Wilfrido Cisse M.D. on 03/20/2020 at 14:49 Approved by: Wilfrido Cisse M.D. on 03/20/2020 at 14:50
--- NOTE | 2020-03-20 15:20 | OT.IP.EVAL ---
Current Diagnoses Non-pressure chronic ulcer of skin of other sites with unspecified severity (03/18/20) Surgery Performed Operation Date: 03/19/20 20:00 Actual Procedures p I&D foot(Left) - Latrice Saleh MD Past Medical History (Last Reviewed 03/20/20 @ 07:23 by Alonzo Valverde PA-C) Hyperlipidemia Hypertension Rheumatoid arthritis Surgical History (Last Reviewed 03/20/20 @ 07:23 by Alonzo Valverde PA-C) History of amputation of toe Occupational Therapy Inpatient Evaluation/Re-Eval M1 PT/OT-IP Prior Functional Status Start: 03/20/20 16:36 Freq: NEEDED Status: Active Protocol: Document 03/20/20 15:20 [facility] (Rec: 03/20/20 16:51 [facility] [id number]) Medical Review Prior Functional Status Medical History Reviewed Yes Communication able to make needs known Mobility and Gait pt stated that she is independent with all mobilities and ambulation without AD Activities of Daily Living and IADL's Pt states that she was completely independent with all her ADl and IADl needs. Social History Household Members spouse Living Arrangements House Number of Floors (Floors) One Floor Number of Stairs To Enter/Railing? 3 steps to enter from the back Home Environment Standard Height Toilet,Tub/ Shower Home Equipment Front Wheel Walker,Hand Held Shower Employment Status Retired Additional Social History Comment Pt states that they will have a ramp built to increase ease to get into the house. M2 OT-IP Current Condition Start: 03/20/20 16:36 Freq: Status: Active Protocol: Document 03/20/20 15:20 [facility] (Rec: 03/20/20 16:51 [facility] [id number]) Occupational Therapy Current Condition Current Condition Evaluation Date 03/20/20 Treatment Diagnosis Left foot ulceration/osteomy s/p Left foot I & D Diagnosis Onset Date 03/19/20 Weight Bearing Status Weight Bearing Status Touch Down Weight Bearing Allowed Weight Bearing Amount (enter % LLE TDWB or #) (%) M3 OT- IP Subjective and Pain Start: 03/20/20 16:36 Freq: Status: Active Protocol: Document 03/20/20 15:20 [facility] (Rec: 03/20/20 16:51 [facility] [id number]) OT- Subjective Occupational Therapy Visit Type Type Initial Evaluation Visit Start Time 15:10 Visit Stop Time 15:20 Total Visit Minutes 10 Occupational Therapy Visit Comments Patient Comments Pt agreed to get up for OT eval. Pt's significant other in the room during OT eval. Patient/Caregiver Goals TO go home. OT Pain Assessment Pain When Pain Assessed At Rest Pain Present Pain Present Denied Pain M4 OT- IP ADL's Start: 03/20/20 16:36 Freq: Status: Active Protocol: Document 03/20/20 15:20 [facility] (Rec: 03/20/20 16:51 [facility] [id number]) OT [id number] Comments OT Self-Feeding Comments NOt at meal time. OT ADL-Grooming General Evaluation Grooming Ability Standby Assistance Areas Needing Assistance Retrieving/Set-up of Grooming Items Comments OT Grooming Comments Suggested could benefit from a stool at the sink. OT ADL-Dressing General Eval Lower Body Dressing Ability Standby Assistance Comments OT Dressing Comments Pt able to tu/doff her right sock. OT ADL-Toileting Comments OT Toileting Comments Pt states prior was able to use the toilet. A BSC would be beneficial or grab bar by the toilet to use at home. OT ADL-Bathing Comments OT Bathing Comments NOt performed. Suggested to get a tub bench to increase ease and safety for showering. M5 OT- IP IADL's Start: 03/20/20 16:36 Freq: Status: Active Protocol: Document 03/20/20 15:20 [facility] (Rec: 03/20/20 16:51 [facility] [id number]) OT-Instrumental Activities of Daily Living Home Safety Awareness Awareness of Need for Assistance at Home Good Awareness Ability to Problem Solve Emergency Able to Problem Solve Situations Medication Management Medication Management Comments Pt aware to have significant other assist her as needed. Money Management Money Management Comments Pt aware to have significant other assist her as needed. Meal Preparation Meal Preparation Caregiver Provides Assist Steam Table Attendant Steam Table Attendant Caregiver Provides Assist M6 OT- IP Functional Cognition Start: 03/20/20 16:36 Freq: Status: Active Protocol: Document 03/20/20 15:20 [facility] (Rec: 03/20/20 16:51 [facility] [id number]) Cognitive Factors Limiting Selfcare Function Cognitive Ability Level of Alertness Alert Patient Orientation Name,Age,Birthday,Month,Date, Year,Day of Week,Place, Situation Attention Span Ability Capable of Focused Attention, Capable of Sustained Attention Ability to Follow Commands Able to Follow One Step Commands Safety Awareness Underestimates Need for Assistance Executive Function Ability Unable to Filter Distractions Cognitive Comments Cognitive Assessment Comments Pt got distracted while at the sink and lost her balance and needing MODA from therapist to regain her balance. Educated for pt to focus on one thing at a time. A bag can be placed on the FWW to help move items or use of wc in the house. Pt states the house in too small for a wc. OT- Vision and Hearing OT- Hearing Assessment OT- Hearing Assessment WFL M7 OT- IP Mobility and Balance Start: 03/20/20 16:36 Freq: Status: Active Protocol: Document 03/20/20 15:20 [facility] (Rec: 03/20/20 16:51 [facility] [id number]) OT- Bed Mobility Assessment Rolling Type of Rolling Roll to Left Level of Assistance Standby Assistance OT-Transfer Assessment Sit to and From Stand Sit to and from Stand Standby Assistance Transfers Transfer Ability Contact Guard Assistance Technique Transfer Destination Bed Transfer Technique Stand Step Pivot Devices Transfer Assistive Devices Gait Belt,Front Wheeled Walker OT- Gait Assessment Comments Gait Ability Comments CGA with FWW. OT- Balance Assessment Sitting Balance and Reactions Static Sitting Balance Ability Normal Dynamic Sitting Balance Ability Normal Standing Balance and Reactions Static Standing Balance Ability Fair Comments Other Balance Tests/Deviations/Treatment Pt had loss of balance while : distracted at the sink and needing MODA to regain her balance. Pt mainly doing NWB as not able to tolerate TDWB status for LLE. M8 OT- IP Objective Assessments Start: 03/20/20 16:36 Freq: Status: Active Protocol: Document 03/20/20 15:20 [facility] (Rec: 03/20/20 16:51 [facility] [id number]) OT Gross Range of Motion Upper Extremity Range of Motion Assessment Within Functional Limits OT Strength Upper Extremity Strength Assessment Within Functional Limits OT-Muscle Tone Assessment Muscle Tone WNL Yes M9 OT- IP Assessment and Plan Start: 03/20/20 16:36 Freq: Status: Active Protocol: Document 03/20/20 15:20 [facility] (Rec: 03/20/20 16:51 [facility] [id number]) OT Summary Assessment and Plan Potential Rehabilitation Potential Good Analytic Complexity at Evaluation Low Summary OT Impairments Functional Cognition, Functional Mobility,Grooming, Dressing,Toileting,Bathing, Toilet Transfers,Shower Transfers,Activity Tolerance Progress Towards Goals Progressing Toward Goals Assessment Summary Pt low complexity and main barriers are steps, now needing assist for Adl needs, decreased safety awareness and gets easily distracted. Pt has a supportive significant other looking to get equipment for her -BSC versus grab bar by the toilet, tub bench, wc, and FWW. Pt looking to go home when medically stable. Goals Grooming Goal Independent Dressing Goal Independent Toileting Goal Independent Bathing Goal Minimal Assistance Toilet Transfer Goal Independent Shower Transfer Goal Minimal Assistance Patient/Caregiver Education Goal Demonstrate Post-Op Precautions,Caregiver Independent Assisting Patient Days to Meet Goals 2 Frequency of Treatment Frequency Of Treatment Once a Day Treatment Plan OT Treatment Plan ADL Training,Functional Cognition Training,Functional Mobility,Patient/Family Education,Discharge Planning Other Treatment Recommendations and Next shower Treatment Focus Discharge Recommendations OT Discharge Recommendations Home with Assistance Home Equipment Needs WC, BSC, FWW, tub bench, grab bar, ramp Transportation Needs at Discharge Private Vehicle
--- NOTE | 2020-03-20 15:39 | CM.DPNOTE ---
Faxed to [facility], FS, PN, H&P, Med Sheet per Paige. Fax confirmation received. Linda Tong CM Asst.
[2020-03-20 15:51] VITALS: BP 136/74; PULSE 75; RESP 16; TEMP 36.4; O2SAT 98
[2020-03-20] MEDS: CEFAZOLIN 1 GM/50 ML FROZ.PIGGY IV ×2 (15:53→23:50)
[2020-03-20] MEDS: POTASSIUM CHLORIDE 20 MEQ TAB PO (15:53)
--- NOTE | 2020-03-20 15:53 | PM.PN.1 ---
Subjective Subjective Date Patient Seen: 03/20/20 Interval history: Patient is 60-year-old female with RA status post left foot irrigation and debridement of infected 3rd toe proximal phalanx with MRI concerning for osteomyelitis. Initial wound cultures from admission growing methicillin sensitive Staph aureus. Surgical wound culture growing Staph aureus sensitivity pending. Patient states pain is well controlled. Exam Vital Signs (past 8 hours): - 03/20/20 08:00 03/20/20 11:01 03/20/20 15:51 Temperature 98.7 F 97.6 F Pulse Rate 78 79 75 Respiratory Rate 17 16 Blood Pressure 144/83 H 153/81 H 136/74 Pulse Oximetry 95 94 98 Oxygen Delivery Method Room Air Oxygen Flow Rate 0 Narrative Exam Narrative: General: Alert and very pleasant female in no acute distress Lungs: Breathing nonlabored Extremities: Left foot has postop dressing, able to move toes Objective Labs Result Diagrams: 03/20/20 05:12 03/19/20 04:52 Labs: Laboratory Results - last 24 hr 03/20/20 05:12 WBC 9.5 RBC 3.51 L Hgb 10.5 L Hct 32.7 L MCV 93.2 MCH 29.9 MCHC 32.1 RDW 14.9 H Plt Count 276 PFSH Medical History Hyperlipidemia Hypertension Rheumatoid arthritis Surgical History History of amputation of toe Family History Father Cancer Mother Hypertension Social History household members: spouse Smoking Status: Current every day smoker alcohol intake: current Assessment & Plan Assessment & Plan narrative: Patient is a 60-year-old female with rheumatoid arthritis on immunosuppressive therapy, hypertension, active smoker admitted due to left foot infection. 1. Left foot ulceration/osteomyelitis, acute, present on admission -MRI suggestive of osteomyelitis of 3rd MTP joint -status post incision and debridement on 03/19/[address] Latrice Saleh, per operative note patient may need foot reconstructive surgery -wound cultures growing Staph aureus appearing methicillin sensitive -discontinued vancomycin and Zosyn -cefazolin 1 g IV q.8 hours likely for 6 weeks IV therapy -PICC placed -arterial duplex normal 2. Hypokalemia, acute, present on admission -by history patient with recurrent hypokalemia secondary to thiazide diuretic -K on admit 2.7, corrected with potassium replacement -start oral KCL 20 mEq daily to continue as outpatient 3. Rheumatoid arthritis, control unknown, present on admission -will hold Xeljanz & Leflunomide medications for now given acute infection, will continue patient's nortriptyline and pregabalin 4. Hypertension, chronic -continue patient's oral metoprolol and HCTZ -continue atorvastatin for hyperlipidemia 5. History of depression -continue venlafaxine, mood appears stable Patient is medically stable. Discharged to either home with home infusion IV antibiotic which is patient's strong preference versus SNF. She will also need [facility] DVT prophylaxis: Aspirin 81 mg b.i.d. per Ortho Quality VTE Deep Vein Thrombosis/Pulmonary Embolism Present on Admission: No
[2020-03-20 20:02] VITALS: BP 114/60; PULSE 74; RESP 18; TEMP 36.7; O2SAT 96
[2020-03-21 00:20] VITALS: BP 113/63; PULSE 71; RESP 16; TEMP 37; O2SAT 96
[2020-03-21 03:30] VITALS: BP 138/75; PULSE 70; RESP 18; TEMP 37.1; O2SAT 96
[2020-03-21] MEDS: OXYCODONE IR 5 MG TABLET PO ×4 (03:37→23:48)
[2020-03-21] MEDS: CEFAZOLIN 1 GM/50 ML FROZ.PIGGY IV ×3 (06:55→23:00)
[2020-03-21] MEDS: ACETAMINOPHEN 325 MG TABLET 975 MG PO ×3 (09:23→20:40)
[2020-03-21] MEDS: PREGABALIN 75 MG CAPSULE 150 MG PO ×2 (09:23→20:40)
[2020-03-21] MEDS: POTASSIUM CHLORIDE 20 MEQ TAB PO (09:24)
[2020-03-21] MEDS: METOPROLOL IR 50 MG TABLET PO ×2 (09:24→20:40)
[2020-03-21] MEDS: VENLAFAXINE 37.5 MG TABLET PO ×2 (09:24→20:46)
[2020-03-21] MEDS: hydroCHLOROthiazide 25 MG TABLET PO (09:24)
[2020-03-21] MEDS: ASPIRIN EC 81 MG TABLET PO ×2 (09:24→20:40)
[2020-03-21 10:22] VITALS: BP 120/77; PULSE 76; RESP 14; TEMP 36.3; O2SAT 93
--- NOTE | 2020-03-21 10:57 | P.PN_ITS ---
Subjective Subjective Date Patient Seen: 03/21/20 Time Patient Seen: 10:57 Interval history: Pain mile to moderated. Denies fever or chills. Otherwise without complaints. Exam Vital Signs (past 8 hours): - 03/21/20 03:30 03/21/20 10:22 Temperature 98.7 F 97.3 F L Pulse Rate 70 76 Respiratory Rate 18 14 Blood Pressure 138/75 120/77 Pulse Oximetry 96 93 Oxygen Delivery Method Room Air Oxygen Flow Rate 0 Narrative Exam Narrative: 60-year-old female resting comfortably in bed in no apparent distress. Dressing is removed. Mild amount of serosanguineous fluid. Wound itself is clean and dry. Couple inches of packing in place and covered with new dressing. Able wiggle all toes. Sensation intact to light touch. Good capillary refill. Objective Labs Result Diagrams: 03/20/20 05:12 03/19/20 04:52 Labs: ORDERED: WOUND Cx and GS COMMENTS: No collection time noted; Received time used as collection time. Procedure Result Verified Site Gram Stain Final 03/19/20- 347 White blood cells Moderate poly WBCs Gram Positive Cocci 1+ Aerobic Culture for wounds Final 03/21/20- 942 Organism 1 Staphylococcus aureus Growth LIGHT Organism 2 Staphylococcus aureus#2 Growth MODERATE 1. Staphylococcus aureus M.I.C. RX --------- --- * Daptomycin 0.5 S * Vancomycin 1 S * Ciprofloxacin <=0.5 S * Clindamycin 0.25 S * Doxycycline <=0.5 S * Erythromycin <=0.25 S * Gentamicin <=0.5 S * Levofloxacin 0.25 S * Linezolid 2 S * Moxifloxacin <=0.25 S * Oxacillin Abhijit <=0.25 S * Rifampin <=0.5 S * Tetracycline <=1 S * Trimethoprim/Sulfamethoxazole <=10 S 2. Staphylococcus aureus#2 M.I.C. RX --------- --- * Daptomycin 0.25 S * Vancomycin 1 S * Ciprofloxacin <=0.5 S * Clindamycin 0.25 S * Doxycycline <=0.5 S * Erythromycin <=0.25 S * Gentamicin <=0.5 S * Levofloxacin 0.25 S * Linezolid 2 S * Moxifloxacin <=0.25 S * Oxacillin Abhijit <=0.25 S * Rifampin <=0.5 S * Tetracycline <=1 S * Trimethoprim/Sulfamethoxazole <=[address] aphylococcus aureus#2 M.I.C. RX M.I.C. RX --------- --- --------- --- * Daptomycin 0.5 S 0.25 S * Vancomycin 1 S 1 S * Ciprofloxacin <=0.5 S <=0.5 S * Clindamycin 0.25 S 0.25 S * Doxycycline <=0.5 S <=0.5 S * Erythromycin <=0.25 S <=0.25 S * Gentamicin <=0.5 S <=0.5 S * Levofloxacin 0.25 S 0.25 S * Linezolid 2 S 2 S * Moxifloxacin <=0.25 S <=0.25 S * Oxacillin Abhijit <=0.25 S <=0.25 S * Rifampin <=0.5 S <=0.5 S * Tetracycline <=1 S <=1 S * Trimethoprim/Sulfamethoxazole <=10 S <=10 S Anaerobic Culture Final 03/19/20831 Test not performed [facility] Medical History Hyperlipidemia Hypertension Rheumatoid arthritis Surgical History History of amputation of toe Family History Father Cancer Mother Hypertension Social History household members: spouse Smoking Status: Current every day smoker alcohol intake: current Assessment & Plan Post-op Postoperative Procedures: Procedures Operation Date: 03/19/20 20:00 Actual Procedures Side Surgeon p I&D foot Left Latrice Saleh MD Left foot ulceration/osteomyelitis, acute, present on admission -MRI suggestive of osteomyelitis of 3rd MTP joint -status post incision and debridement on 03/19/[address] Latrice Saleh, per operative note patient may need foot reconstructive surgery -wound cultures growing Staph aureus appearing methicillin sensitive Limited weight-bearing on the left lower extremity use a roll about. Dressing changes and wound care when infection is stabilized. Anticipate possible long- term reconstructive foot surgery depending upon patient's course. Per hospitalist: -discontinued vancomycin and Zosyn -cefazolin 1 g IV q.8 hours likely for 6 weeks IV therapy -PICC placed -arterial duplex normal Quality VTE Deep Vein Thrombosis/Pulmonary Embolism Present on Admission: No
--- NOTE | 2020-03-21 11:06 | OT.IP.TRT ---
Current Diagnoses Non-pressure chronic ulcer of skin of other sites with unspecified severity (03/18/20) Surgery Performed Operation Date: 03/19/20 20:00 Actual Procedures p I&D foot(Left) - Latrice Saleh MD Occupational Therapy Treatment Note M2 OT-IP Current Condition Start: 03/20/20 16:36 Freq: Status: Active Protocol: Document 03/20/20 15:20 [facility] (Rec: 03/20/20 16:51 [facility] [id number]) Occupational Therapy Current Condition Current Condition Evaluation Date 03/20/20 Treatment Diagnosis Left foot ulceration/oosteomy s/p Left foot I & D Diagnosis Onset Date 03/19/20 Weight Bearing Status Weight Bearing Status Touch Down Weight Bearing Allowed Weight Bearing Amount (enter % LLE TDWB or #) (%) M3 OT- IP Subjective and Pain Start: 03/20/20 16:36 Freq: Status: Active Protocol: Document 03/21/20 12:25 [facility] (Rec: 03/21/20 12:31 [facility] [id number]) OT- Subjective Occupational Therapy Visit Type Type Treatment Note Visit Start Time 15:10 Visit Stop Time 15:20 Total Visit Minutes 10 Occupational Therapy Visit Comments Patient Comments Pt wanting to sponge off. Patient/Caregiver Goals Pt wanting to go home. OT Pain Assessment Pain When Pain Assessed At Rest Pain Present Pain Present Pain Reported Location Left Foot Intensity 5 Scale Used Numeric (0 - 10) M4 OT- IP ADL's Start: 03/20/20 16:36 Freq: Status: Active Protocol: Document 03/21/20 12:25 [facility] (Rec: 03/21/20 12:31 [facility] [id number]) OT ADL-Grooming General Evaluation Grooming Ability Standby Assistance Areas Needing Assistance Retrieving/Set-up of Grooming Items OT ADL-Dressing General Eval Lower Body Dressing Ability Standby Assistance Comments OT Dressing Comments Pt able to tu/doff her right sock. OT ADL-Bathing Bathing Type Bathing Type Shower General Evaluation Bathing Ability Standby Assistance Comments OT Bathing Comments Assist for set-up and pt able to sponge off while seated at the edge of the bed. M5 OT- IP IADL's Start: 03/20/20 16:36 Freq: Status: Active Protocol: Document 03/20/20 15:20 [facility] (Rec: 03/20/20 16:51 [facility] [id number]) OT-Instrumental Activities of Daily Living Home Safety Awareness Awareness of Need for Assistance at Home Good Awareness Ability to Problem Solve Emergency Able to Problem Solve Situations Medication Management Medication Management Comments Pt aware to have significant other assist her as needed. Money Management Money Management Comments Pt aware to have significant other assist her as needed. Meal Preparation Meal Preparation Caregiver Provides Assist [employer] Caregiver Provides Assist M6 OT- IP Functional Cognition Start: 03/20/20 16:36 Freq: Status: Active Protocol: Document 03/21/20 12:25 [facility] (Rec: 03/21/20 12:31 [facility] [id number]) Cognitive Factors Limiting Selfcare Function Cognitive Comments Cognitive Assessment Comments Today pt more relaxed and states has good understanding for needs and that she knows that she has to slow down and ask for help as needed. M7 OT- IP Mobility and Balance Start: 03/20/20 16:36 Freq: Status: Active Protocol: Document 03/21/20 12:25 [facility] (Rec: 03/21/20 12:31 [facility] [id number]) OT- Bed Mobility Assessment Supine to Sit Supine to Sit Assist Independent Sit to Supine Sit to Supine Assist Independent OT-Transfer Assessment Sit to and From Stand Sit to and from Stand Standby Assistance OT- Balance Assessment Sitting Balance and Reactions Static Sitting Balance Ability Normal Dynamic Sitting Balance Ability Normal Standing Balance and Reactions Static Standing Balance Ability Good M8 OT- IP Objective Assessments Start: 03/20/20 16:36 Freq: Status: Active Protocol: Document 03/20/20 15:20 [facility] (Rec: 03/20/20 16:51 [facility] [id number]) OT Gross Range of Motion Upper Extremity Range of Motion Assessment Within Functional Limits OT Strength Upper Extremity Strength Assessment Within Functional Limits OT-Muscle Tone Assessment Muscle Tone WNL Yes M9 OT- IP Assessment and Plan Start: 03/20/20 16:36 Freq: Status: Active Protocol: Document 03/21/20 12:25 [facility] (Rec: 03/21/20 12:31 [facility] [id number]) OT Summary Assessment and Plan Potential Rehabilitation Potential Good Analytic Complexity at Evaluation Low Summary Progress Towards Goals Progressing Toward Goals Assessment Summary Pt's able to get all equipment needs of ramp, wc, BSC, tub bench, and already has a fww and looking to go home today pending training with [facility]. Pt has good safety for all ADl needs and therefore discharge pt from OT services. Discharge Recommendations OT Discharge Recommendations Home with Assistance Home Equipment Needs WC, BSC, FWW, tub bench, grab bar, ramp Transportation Needs at Discharge Private Vehicle
--- NOTE | 2020-03-21 11:21 | OT.IP.TRT ---
Current Diagnoses Non-pressure chronic ulcer of skin of other sites with unspecified severity (03/18/20) Surgery Performed Operation Date: 03/19/20 20:00 Actual Procedures p I&D foot(Left) - Latrice Saleh MD Occupational Therapy Treatment Note M2 OT-IP Current Condition Start: 03/20/20 16:36 Freq: Status: Active Protocol: Document 03/20/20 15:20 [facility] (Rec: 03/20/20 16:51 [facility] [id number]) Occupational Therapy Current Condition Current Condition Evaluation Date 03/20/20 Treatment Diagnosis Left fooot ulceration/oosteomy s/p Left foot I & D Diagnosis Onset Date 03/19/20 Weight Bearing Status Weight Bearing Status Touch Down Weight Bearing Allowed Weight Bearing Amount (enter % LLE TDWB or #) (%) M3 OT- IP Subjective and Pain Start: 03/20/20 16:36 Freq: Status: Active Protocol: Document 03/21/20 12:25 [facility] (Rec: 03/21/20 12:31 [facility] [id number]) OT- Subjective Occupational Therapy Visit Type Type Treatment Note Visit Start Time 1106 Visit Stop Time 1121 Total Visit Minutes 15 Occupational Therapy Visit Comments Patient Comments Pt wanting to sponge off. Patient/Caregiver Goals Pt wanting to go home. OT Pain Assessment Pain When Pain Assessed At Rest Pain Present Pain Present Pain Reported Location Left Foot Intensity 5 Scale Used Numeric (0 - 10) M4 OT- IP ADL's Start: 03/20/20 16:36 Freq: Status: Active Protocol: Document 03/21/20 12:25 [facility] (Rec: 03/21/20 12:31 [facility] [id number]) OT ADL-Grooming General Evaluation Grooming Ability Standby Assistance Areas Needing Assistance Retrieving/Set-up of Grooming Items OT ADL-Dressing General Eval Lower Body Dressing Ability Standby Assistance Comments OT Dressing Comments Pt able to tu/doff her right sock. OT ADL-Bathing Bathing Type Bathing Type Shower General Evaluation Bathing Ability Standby Assistance Comments OT Bathing Comments Assist for set-up and pt able to sponge off while seated at the edge of the bed. M5 OT- IP IADL's Start: 03/20/20 16:36 Freq: Status: Active Protocol: Document 03/20/20 15:20 [facility] (Rec: 03/20/20 16:51 [facility] [id number]) OT-Instrumental Activities of Daily Living Home Safety Awareness Awareness of Need for Assistance at Home Good Awareness Ability to Problem Solve Emergency Able to Problem Solve Situations Medication Management Medication Management Comments Pt aware to have significant other assist her as needed. Money Management Money Management Comments Pt aware to have significant other assist her as needed. Meal Preparation Meal Preparation Caregiver Provides Assist Suede Brusher Suede Brusher Caregiver Provides Assist M6 OT- IP Functional Cognition Start: 03/20/20 16:36 Freq: Status: Active Protocol: Document 03/21/20 12:25 [facility] (Rec: 03/21/20 12:31 [facility] [id number]) Cognitive Factors Limiting Selfcare Function Cognitive Comments Cognitive Assessment Comments Today pt more relaxed and states has good understanding for needs and that she knows that she has to slow down and ask for help as needed. M7 OT- IP Mobility and Balance Start: 03/20/20 16:36 Freq: Status: Active Protocol: Document 03/21/20 12:25 [facility] (Rec: 03/21/20 12:31 [facility] [id number]) OT- Bed Mobility Assessment Supine to Sit Supine to Sit Assist Independent Sit to Supine Sit to Supine Assist Independent OT-Transfer Assessment Sit to and From Stand Sit to and from Stand Standby Assistance OT- Balance Assessment Sitting Balance and Reactions Static Sitting Balance Ability Normal Dynamic Sitting Balance Ability Normal Standing Balance and Reactions Static Standing Balance Ability Good M8 OT- IP Objective Assessments Start: 03/20/20 16:36 Freq: Status: Active Protocol: Document 03/20/20 15:20 [facility] (Rec: 03/20/20 16:51 [facility] [id number]) OT Gross Range of Motion Upper Extremity Range of Motion Assessment Within Functional Limits OT Strength Upper Extremity Strength Assessment Within Functional Limits OT-Muscle Tone Assessment Muscle Tone WNL Yes M9 OT- IP Assessment and Plan Start: 03/20/20 16:36 Freq: Status: Active Protocol: Document 03/21/20 12:25 [facility] (Rec: 03/21/20 12:31 [facility] [id number]) OT Summary Assessment and Plan Potential Rehabilitation Potential Good Analytic Complexity at Evaluation Low Summary Progress Towards Goals Progressing Toward Goals Assessment Summary Pt's able to get all equipment needs of ramp, wc, BSC, tub bench, and already has a fww and looking to go home today pending training from [employer]. Pt has good safety for all ADl needs and therefore discharge pt from OT services. Discharge Recommendations OT Discharge Recommendations Home with Assistance Home Equipment Needs WC, BSC, FWW, tub bench, grab bar, ramp Transportation Needs at Discharge Private Vehicle
--- NOTE | 2020-03-21 11:48 | PT.IPTN ---
Current Diagnoses Non-pressure chronic ulcer of skin of other sites with unspecified severity (03/18/20) Surgery Performed Operation Date: 03/19/20 20:00 Actual Procedures p I&D foot(Left) - Latrice Saleh MD Physical Therapy Treatment Note M2 PT-IP Current Condition Start: 03/20/20 12:10 Freq: NEEDED Status: Active Protocol: Document 03/20/20 10:55 [facility] (Rec: 03/20/20 12:56 AB [id number]) Physical Therapy Current Condition Current Condition Evaluation Date 03/20/20 Treatment Diagnosis L foot I&D; difficulty in walking Onset Date Weight Bearing Status Weight Bearing Status Touch Down Weight Bearing Allowed Weight Bearing Amount (enter % LLE TTWB or #) (%) M3 PT-IP Subjective Start: 03/20/20 12:10 Freq: NEEDED Status: Active Protocol: Document 03/21/20 11:38 [facility] (Rec: 03/21/20 12:36 [facility] [id number]) Subjective Physical Therapy Visit Type Type Treatment Note Visit Start Time 11:38 Visit Stop Time 11:48 Total Visit Minutes 10 Number of DIRECTOR PROCESS Visits 1 Physical Therapy Visit Comments Patient Comments pt is agreeable to do PT Therapy Pain Assessment Pain When Pain Assessed At Rest Pain Present Pain Present Denied Pain M4 PT-IP Mobility and Gait Start: 03/20/20 12:10 Freq: NEEDED Status: Active Protocol: Document 03/21/20 11:38 [facility] (Rec: 03/21/20 12:36 [facility] [id number]) PT-Transfer Assessment Sit to and From Stand Sit to and from Stand Standby Assistance,1 Person Assistance,Use of Upper Extremities Equipment Transfer Assistive Device Gait Belt,Front Wheeled Walker Orthotic/Prosthetic Devices or Brace: No Comments Mobility Comments Pt sitting on window bench upon arrival, pt stood SBA and ambulated ~60ft in room w/FWW /SBA. Pt able to maintain TTWB during ambulation. Pt returned to window seat sitting with back against wall and LLE elevated on pillow. RN informed of pt's position in room on window seat. Gait Assessment Gait Gait Assistance Required: Standby Assistance,1 Person Assist Distance (Feet) 60 Able to Maintain Weight Bearing Status Yes During Gait Assistive Devices Assistive Device Gait Belt,Front Wheeled Walker Orthotic/Prosthetic Devices or Brace: No Factors Limiting Gait Function Factors Limiting Gait Function Decreased Activity Tolerance, Decreased Strength,Limited Range of Motion,Pain,Poor Balance,Poor Safety Awareness Stair Climbing Assessment Comments Stair Climbing Comments Pt will go up ramp with WC to enter home. M5 PT-IP Objective Assessments Start: 03/20/20 12:10 Freq: NEEDED Status: Active Protocol: Document 03/20/20 10:55 [facility] (Rec: 03/20/20 12:56 AB [id number]) Orientation Orientation/Cognition Level of Alertness Alert Orientation Name,Place,Situation Language Function Ability No Deficits Noted Safety Awareness Decreased Safety Awareness Memory Description No Deficits Noted Gross Range of Motion Lower Extremity ROM Assessment Within Functional Limits Impairments ankle not tested: on a soft cast Strength Lower Extremity Strength Ankle L ankle not tested: on a soft cast Sensation Assessment Sensation Gross Sensation Left LE Impaired Light Touch Impaired Proprioception (Position) Impaired Sensation Description Numbness Comments Sensation Comments L foot numbness Muscle Tone Muscle Tone WNL Yes M6 PT-IP Treatment Start: 03/20/20 12:10 Freq: NEEDED Status: Active Protocol: Document 03/20/20 10:55 [facility] (Rec: 03/20/20 12:56 AB [id number]) Physical Therapy Treatment Education Education Provided Weight Bearing Status,Safety M7 PT-IP Assessment and Plan Start: 03/20/20 12:10 Freq: NEEDED Status: Active Protocol: Document 03/21/20 11:38 [facility] (Rec: 03/21/20 12:36 [facility] [id number]) PT Summary Assessment and Plan Potential Rehabilitation Potential Good Status of Condition at Evaluation Stable Summary Impairments Pain,ROM,Strength,Balance, Coordination,Sensation,Tone, Cognition,Bed Mobility, Transfers,Gait,Activity Tolerance Progress Towards Goals Progressing Toward Goals Assessment Summary Pt requires SBA for all mobility and is able to maintain TTWB during gait. Pt was able to obtain, FWW, tub chair, WC, ramp and BSC from [employer]. Pt will take WC up ramp to enter home. Goals Bed Mobility Goal Independent Transfer Goal Independent,Front Wheeled Walker Gait Goal Independent,Front Wheel Walker Gait Distance 50 Days to Meet Goals 5 Frequency of Treatment Frequency Of Treatment Once a Day Treatment Plan Physical Therapy Treatment Plan Bed Mobility Training,Transfer Training,Gait Training, Therapeutic Exercise,Balance Retraining,Post Op Education, Discharge Planning,Hot or Cold Pack,Neuromuscular Re-ed, Coordination Retraining Recommendations To Nursing Amount of Assist Needed 1 Person Assist Discharge Recommendations PT Discharge Recommendations Home with Assistance Transportation Needs at Discharge Private Vehicle
--- NOTE | 2020-03-21 15:22 | CM.DPNOTE ---
DCP Cont Working on DCP throughout the day; update as follows: -[facility] continues to wait for auth through [employer] for IV cefazolin 1 g Q8 x6 weeks. Patient will remain here this evening while home infusion is secured, Dr Whaley aware/agreeable and patient aware/agreeable -Patient had wound care dressing change today by Ortho PA Alonzo Valverde, packing placed. Patient needs her next wound care dressing change Wednesday03.25.20. Packing will be removed before patient's DC home -Placed call to Kirsten Partida, [facility] ext [phone]; she can schedule patient on Wednesday03.27.20, check in at 1030, appt at 1100, appt will take an hour and 1/2. There is nothing available Wednesday03.25.20 -Updated Alonzo Valverde on above. SN[facility] team will work to get patient in for a wound care appt Wednesday03.25.20. Ortho will round on patient tomorrow 03.22.20 Updated RN and patient, patient agreeable to plan and very appreciative for assist. Anticipates to return home tomorrow w/[facility] (pending auth from [employer]) for IV abx and outpatient wound care through ortho and wound care center here at . Following closely. CANDI
--- NOTE | 2020-03-21 16:19 | P.PN_ITS ---
Subjective Subjective Date Patient Seen: 03/21/20 Interval history: Patient is 60-year-old female with RA status post left foot irrigation and debridement of infected 3rd toe proximal phalanx with MRI concerning for osteomyelitis. Initial wound cultures from admission growing methicillin sensitive Staph aureus and coag-negative staph. Surgical wound cultures from 03/19 growing bennett susceptible Staph aureus. Patient has no major complaints. States pain well controlled. Has been afeb rile. Exam Vital Signs (past 8 hours): - 03/21/20 10:22 Temperature 97.3 F L Pulse Rate 76 Respiratory Rate 14 Blood Pressure 120/77 Pulse Oximetry 93 Oxygen Delivery Method Room Air Oxygen Flow Rate 0 Narrative Exam Narrative: General: Alert, conversant and in no acute distress Objective Labs Result Diagrams: 03/20/20 05:12 03/19/20 04:52 [facility] Medical History Hyperlipidemia Hypertension Rheumatoid arthritis Surgical History History of amputation of toe Family History Father Cancer Mother Hypertension Social History household members: spouse Smoking Status: Current every day smoker alcohol intake: current Assessment & Plan Assessment & Plan narrative: Patient is a 60-year-old female with rheumatoid arthritis on immunosuppressive therapy, hypertension, active smoker admitted due to left foot infection. 1. Left foot ulceration/osteomyelitis, acute, present on admission -MRI suggestive of osteomyelitis of 3rd MTP joint -status post incision and debridement on 03/19/[address] Latrice Saleh, per operative note patient may need foot reconstructive surgery -wound cultures from admission and surgical cultures from 03/19 growing pansensitive Staph aureus -discontinued vancomycin and Zosyn -cefazolin 1 g IV q.8 hours started on 03/20 for likely duration of 6 weeks IV therapy -PICC placed -arterial duplex normal 2. Hypokalemia, acute, present on admission -by history patient with recurrent hypokalemia secondary to thiazide diuretic -K on admit 2.7, corrected with potassium replacement -started oral KCL 20 mEq daily to continue as outpatient 3. Rheumatoid arthritis, control unknown, present on admission -will hold Xeljanz & Leflunomide medications for now given acute infection, will continue patient's nortriptyline and pregabalin 4. Hypertension, chronic -continue patient's oral metoprolol and HCTZ -continue atorvastatin for hyperlipidemia 5. History of depression -continue venlafaxine, mood appears stable Patient is medically stable. We are awaiting insurance authorization of home infusion IV antibiotic therapy in order to discharge patient. Plan is to follow up at ortho clinic on Wednesday next week and at wound care on Wednesday next week. Dr Brooks saw patient on 03/21 and made dressing change recommendations. DVT prophylaxis: Aspirin 81 mg b.i.d. Quality VTE Deep Vein Thrombosis/Pulmonary Embolism Present on Admission: No
[2020-03-21 16:25] VITALS: BP 126/75; PULSE 66; RESP 20; TEMP 36.3
--- NOTE | 2020-03-21 16:35 | P.CONS_ITS ---
History of Present Illness Consult details Date Patient Seen: 03/21/20 Time Patient Seen: 15:00 Chief complaint: infection in foot and kidney inection Reason for consult: Evaluation and management of surgical wound. Requesting provider: Latrice Saleh Narrative: 60-year-old female, current every day smoker with rheumatoid arthritis, who is s/p L foot irrigation and debridement, on 03/19, down to, and including, bone involving the MTH and proximal phalanx of digit #3. Wound cultures are growing bennett-sensitive MSSA and heavy CoNS. Operative bone cultures are pending, but GS shows occ PMN and 1+ GPC. PICC placed and she is to receive cefazolin 1 g IV q.8 hours x 6 weeks. Her L foot is deformed with severe degenerative changes at the MTPJ level, especially at the hallux and digit #3 and likely due to OA and RA. There has been pain at the L hallux and 3rd digit limiting the patient's ability to WB and she eventually developed a callus and plantar ulcer on at 3rd digit. As a more long-term goal, reconstructive foot surgery is being contemplated. 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 Activity is limited WB on LLE and use of a Roll-A-Bout knee walker. She is not diabetic and she has no evidence of arterial insufficiency. Her RA is being treated with Xeljanz and Leflunomide, which have been held due to the current infectious process. She is on Chantix and attempting to quit tobacco. She has tapered to 5 cigarettes daily. Meds Home Medications and Allergies Home Medications Medication Instructions Recorded Confirmed Type atorvastatin 20 mg PO DAILY 03/18/20 03/19/20 History doxycycline hyclate 100 mg capsule 100 mg PO BID 7 Days #14 cap 03/18/20 03/18/20 Rx hydrochlorothiazide 25 mg PO DAILY 03/18/20 03/18/20 History leflunomide 20 mg PO DAILY 03/18/20 03/18/20 History metoprolol tartrate 50 mg BID 03/18/20 03/18/20 History mupirocin 2 % topical ointment 1 applic TOPICAL TID #30 g 03/18/20 03/18/20 Rx nortriptyline 50 mg PO DAILY 03/18/20 03/19/20 History pregabalin 150 mg PO BID 03/18/20 03/19/20 History tofacitinib [Xeljanz] 5 mg PO BID 03/18/20 03/19/20 History varenicline [Chantix] 1 mg PO BID 03/18/20 03/19/20 History venlafaxine 37.5 mg PO BID 03/18/20 03/19/20 History Allergies Allergy/AdvReac Type Severity Reaction Status Date / Time lisinopril Allergy Severe angioedema Verified 03/19/20 15:57 Review of Systems Review of Systems Narrative: She reported chills, body aches, poor appetite and L foot pain, swelling, erythema, and drainage all of which are much improved after surgery and antibiotic therapy. She has baseline arthralgias, joint swelling, and joint stiffness due to her RA. ROS: Yes All systems reviewed with the patient and are negative except as otherwise documented Exam Vital Signs (past 8 hours): - 03/21/20 10:22 03/21/20 16:25 Temperature 97.3 F L 97.3 F L Pulse Rate 76 66 Respiratory Rate 14 20 Blood Pressure 120/77 126/75 Pulse Oximetry 93 Oxygen Delivery Method Room Air Oxygen Flow Rate 0 Narrative Exam Narrative: Constitutional: VS reviewed (see above). NAD. Conversant. Eyes: Sclerae anicteric. Ears, Nose, Mouth, and Throat: Normal hearing Respiratory: Normal respiratory effort. Cardiovascular: RRR. Mild L ankle and foot edema. L DP is biphasic and strong to handheld Doppler. L PT is monophasic and strong to handheld Doppler. No L foot elevation pallor or dependent rubor. No bruising or cyanosis. CR < 3 sec. Musculoskeletal: Ambulates with a FWW. No digital cyanosis or clubbing. L 2nd ray amputation. L 1st and 3rd digit with gross deformity. Neurological: No LOPS noted bilaterally. L foot sensation intact. L motor function intact. Psychiatric: Insight and judgment intact. A&OX3. Mood good and affect appropriate. Integumentary (Hair, Skin): Inspection and palpation of skin and subcutaneous tissues: Surgical wound over the plantar L 3rd MTH area is full-thickness and measures 3.5 cm (L) x 1.0 cm (W) x 2.5 cm (D). Moderate serous drainage noted. No odor. +TTP. Margin is callused. I could not appreciate any exposed structure. The L foot exhibits increased warmth to palpation and is mildly swollen. No erythema. Objective Labs Result Diagrams: 03/20/20 05:12 03/19/20 04:52 Labs: 03/20/20: WBC 9.5. 03/19/20: WBC 9.8, CRP 14.3, A1c 5.7, GFR > 60, K+ 3.8 03/18/20: WBC 11.8, procalcitonin <0.05, lactate 1.0, CRP 13.8, GFR 47, K+ 2.7 Imagin03/19/20: Bilateral lower extremity Arterial duplex normal. 03/19/20: MRI suggestive of osteomyelitis of L 3rd MTP joint. Extensive cellulitis. No abscess. Chronic degenerative changes. Assessment & Plan Assessment & Plan narrative: Assessment: Full thickness surgical wound of the L 3rd digit complicated by osteomyelitis and cellulitis in a patient with RA treated with DMARDs (carrying risk of immunosuppression). Appears to be doing well post-operatively, with improving s/s of infection on current antibiotic regimen. The following factors have been identified that may impair wound healing: Non- viable margin (callus), cellulitis/osteomyelitis, pressure, foot deformities, rheumatoid arthritis, immunosuppression, smoking. Goals: wound closure. Plan: Hydrofiber dressing ordered to promote moist wound healing. Change 3XW and prn. Intake appointment at wound care center scheduled for 03/27/20. Agree with current antibiotic regimen pending final results of intraoperative c &s. NWB as much as possible. Agree with recommendation for Roll-A-Bout knee walker. Congratulated on current efforts to stop smoking and emphasized the importance of smoking cessation to optimize healing and limit risk of diseases/conditions associated with smoking. Time Spent With Patient Time with patient: 25 - 35 minutes
[2020-03-21] MEDS: DOCUSATE 100 MG CAPSULE PO (20:40)
[2020-03-21 23:54] VITALS: BP 127/66; PULSE 65; RESP 16; TEMP 36.2; O2SAT 97
[2020-03-22 04:55] VITALS: BP 147/73; PULSE 71; RESP 18; TEMP 36.3; O2SAT 97
[2020-03-22] MEDS: OXYCODONE IR 5 MG TABLET PO ×3 (06:39→14:25)
[2020-03-22] MEDS: CEFAZOLIN 1 GM/50 ML FROZ.PIGGY IV (06:39)
[2020-03-22 08:59] VITALS: BP 127/71; PULSE 70; RESP 16; TEMP 36.7; O2SAT 95
[2020-03-22] MEDS: ASPIRIN EC 81 MG TABLET PO (09:54)
[2020-03-22] MEDS: ACETAMINOPHEN 325 MG TABLET 975 MG PO ×2 (09:54→14:24)
[2020-03-22] MEDS: POTASSIUM CHLORIDE 20 MEQ TAB PO (09:54)
[2020-03-22] MEDS: DOCUSATE 100 MG CAPSULE PO (09:54)
[2020-03-22] MEDS: PREGABALIN 75 MG CAPSULE 150 MG PO (09:55)
[2020-03-22] MEDS: METOPROLOL IR 50 MG TABLET PO (09:55)
[2020-03-22] MEDS: hydroCHLOROthiazide 25 MG TABLET PO (09:55)
[2020-03-22] MEDS: VENLAFAXINE 37.5 MG TABLET PO (09:56)
--- NOTE | 2020-03-22 11:35 | PT.IPTN ---
Current Diagnoses Non-pressure chronic ulcer of other part of unspecified foot with unspecified severity (03/18/20) Non-pressure chronic ulcer of skin of other sites with unspecified severity (03/18/20) Surgery Performed Operation Date: 03/19/20 20:00 Actual Procedures p I&D foot(Left) - Latrice Saleh MD Physical Therapy Treatment Note M2 PT-IP Current Condition Start: 03/20/20 12:10 Freq: NEEDED Status: Active Protocol: Document 03/22/20 11:41 MA (Rec: 03/22/20 11:55 MA [email or web address]) Physical Therapy Current Condition Current Condition Evaluation Date 03/20/20 Treatment Diagnosis L foot I&D; difficulty in walking Onset Date Weight Bearing Status Weight Bearing Status Touch Down Weight Bearing Allowed Weight Bearing Amount (enter % LLE TDWB or #) (%) M3 PT-IP Subjective Start: 03/20/20 12:10 Freq: NEEDED Status: Active Protocol: Document 03/22/20 11:41 MA (Rec: 03/22/20 11:55 MA [email or web address]) Subjective Physical Therapy Visit Type Type Treatment Note Visit Start Time 11:20 Visit Stop Time 11:35 Total Visit Minutes 15 Number of MARKETING INTELLIGENCE ANALYST Visits 2 Physical Therapy Visit Comments Patient Comments pt is agreeable to do PT. Her dr ordered her a walking shoe but she is willing to walk in hallway with a sock today to aovid infection Therapy Pain Assessment Pain When Pain Assessed At Rest Pain Present Pain Present Pain Reported Location Left Foot Intensity 4 Scale Used Numeric (0 - 10) Description With Movement Pain Management Techniques Apply Cold,Elevation M4 PT-IP Mobility and Gait Start: 03/20/20 12:10 Freq: NEEDED Status: Active Protocol: Document 03/22/20 11:41 MA (Rec: 03/22/20 11:55 MA [email or web address]) PT-Bed Mobility Assessment Supine to Sit Supine to Sit Standby Assistance Sit to Supine Sit to Supine Standby Assistance PT-Transfer Assessment Sit to and From Stand Sit to and from Stand Standby Assistance,1 Person Assistance,Use of Upper Extremities Equipment Transfer Assistive Device Gait Belt,Front Wheeled Walker Orthotic/Prosthetic Devices or Brace: No Comments Mobility Comments Pt supine in bed upon arrival with present. Pt states they are just waiting to see the dr to d/c her. She is SBA for all mobility. Gait Assessment Gait Gait Assistance Required: Standby Assistance,1 Person Assist Distance (Feet) 100 Able to Maintain Weight Bearing Status Yes During Gait Assistive Devices Assistive Device Gait Belt,Front Wheeled Walker Orthotic/Prosthetic Devices or Brace: No Factors Limiting Gait Function Factors Limiting Gait Function Decreased Activity Tolerance, Decreased Strength,Limited Range of Motion,Pain,Poor Balance,Poor Safety Awareness Comments Gait Comments Put sock on LLE to walk in hallway today. Pt was able to walk 50 feet before stating her pain was coming back and turning around walking 50 ft back to room. Educated pt on turning toward RLE to avoid putting full weight on LLE when turning around. Pt was TTWB with FWW and gait belt. She maintained WB status and needed minimal cues to avoid stepping too close to walker for safety. Returned pt to bed with all needs within reach and replaced her ice pack on L ankle to reduce inflammation. Stair Climbing Assessment Comments Stair Climbing Comments Pt will go up ramp with WC to enter home. PT-Balance Assessment Sitting Balance and Reactions Static Sitting Balance Ability Normal Dynamic Sitting Balance Ability Normal Standing Balance and Reactions Static Standing Balance Ability Good Dynamic Standing Balance Ability Fair Device Used FWW M5 PT-IP Objective Assessments Start: 03/20/20 12:10 Freq: NEEDED Status: Active Protocol: Document 03/20/20 10:55 AB (Rec: 03/20/20 12:56 AB [id number]) Orientation Orientation/Cognition Level of Alertness Alert Orientation Name,Place,Situation Language Function Ability No Deficits Noted Safety Awareness Decreased Safety Awareness Memory Description No Deficits Noted Gross Range of Motion Lower Extremity ROM Assessment Within Functional Limits Impairments ankle not tested: on a soft cast Strength Lower Extremity Strength Ankle L ankle not tested: on a soft cast Sensation Assessment Sensation Gross Sensation Left LE Impaired Light Touch Impaired Proprioception (Position) Impaired Sensation Description Numbness Comments Sensation Comments L foot numbness Muscle Tone Muscle Tone WNL Yes M6 PT-IP Treatment Start: 03/20/20 12:10 Freq: NEEDED Status: Active Protocol: Document 03/22/20 11:41 MA (Rec: 03/22/20 11:55 MA [email or web address]) Physical Therapy Treatment Education Education Provided Weight Bearing Status,Safety M7 PT-IP Assessment and Plan Start: 03/20/20 12:10 Freq: NEEDED Status: Active Protocol: Document 03/22/20 11:41 MA (Rec: 03/22/20 11:55 MA [email or web address]) PT Summary Assessment and Plan Potential Rehabilitation Potential Good Status of Condition at Evaluation Stable Summary Impairments Pain,ROM,Strength,Balance, Coordination,Sensation,Tone, Cognition,Bed Mobility, Transfers,Gait,Activity Tolerance Progress Towards Goals Progressing Toward Goals Assessment Summary Pt requires SBA for all mobility. Educated pt on turning toward RLE to avoid putting full weight on LLE with pt showing good understanding. She is willing to walk in hallway as long as her foot is covered to aovid infection. Pt's has obtained all the necessary equipmet for home and has ordered walking shoe for pt. Goals Bed Mobility Goal Independent Transfer Goal Independent,Front Wheeled Walker Gait Goal Independent,Front Wheel Walker Gait Distance 50 Days to Meet Goals 5 Frequency of Treatment Frequency Of Treatment Once a Day Treatment Plan Physical Therapy Treatment Plan Bed Mobility Training,Transfer Training,Gait Training, Therapeutic Exercise,Balance Retraining,Post Op Education, Discharge Planning,Hot or Cold Pack,Neuromuscular Re-ed, Coordination Retraining Recommendations To Nursing Amount of Assist Needed Standby Assistance Discharge Recommendations PT Discharge Recommendations Home with Assistance Transportation Needs at Discharge Private Vehicle
--- NOTE | 2020-03-22 11:39 | PM.PNPO.1 ---
Subjective Subjective Date Patient Seen: 03/22/20 Time Patient Seen: 11:39 Interval history: Patient's pain is well controlled. Denies fever or chills. No nausea or vomiting. [facility] therapy will be by this afternoon for training prior to being discharged. Exam Vital Signs (past 8 hours): - 03/22/20 04:55 03/22/20 08:59 Temperature 97.3 F L 98.0 F Pulse Rate 71 70 Respiratory Rate 18 16 Blood Pressure 147/73 H 127/71 Pulse Oximetry 97 95 Oxygen Delivery Method Room Air Oxygen Flow Rate 0 Narrative Exam Narrative: 60-year-old female resting comfortably in bed in no apparent distress. Dressing is clean, dry and intact. Patient able to move all toes. Sensation grossly intact to light touch. Objective Labs Result Diagrams: 03/20/20 05:12 03/19/20 04:52 [facility] Medical History Hyperlipidemia Hypertension Rheumatoid arthritis Surgical History History of amputation of toe Family History Father Cancer Mother Hypertension Social History household members: spouse Smoking Status: Current every day smoker alcohol intake: current Assessment & Plan Post-op Postoperative Procedures: Procedures Operation Date: 03/19/20 20:00 Actual Procedures Side Surgeon p I&D foot Left Latrice Saleh MD Status post left foot irrigation and debridement with debridement of infected 3rd toe proximal phalanx. Patient is stable. Wound check/dressing change visit as scheduled [facility] will be schedule for early next week. Scheduled for wound care clinic [facility] on March 27, 2020. Wound care did do consultation on March 21, 2020. Patient will be discharged home per hospitalist on IV antibiotics. Quality VTE Deep Vein Thrombosis/Pulmonary Embolism Present on Admission: No
--- NOTE | 2020-03-22 14:13 | PC.NURSE ---
Dressing changed to LUE PICC and L foot per Wound care orders.
--- NOTE | 2020-03-22 15:22 | CM.DPNOTE ---
DC Note Coordinated the following DCP today on patient's behalf, patient aware and agreeable, SO Saqib at bedside today and plans to transport patient home: -[facility] to arrive at bedside at approx [phone] to complete teaching w/patient and give afternoon dose -Dr Brooks has seen patient on the acute care floor, yesterday and plans an additional visit today wound documented as looking good -Outpatient appt has been confirmed w/the wound care center for Wednesday03.27.20, check in at 1030, appt at 1100, this information has been included in patient's DC instructions -Outpatient appt has also been made w/ Ortho for 03.27.20 at 1500, included on DC instructions All this reviewed by RN, patient and SO confident about returning home today w/above. No DC Summary available to fax to [facility] at time of this note JW
--- NOTE | 2020-03-22 19:50 | P.DS_ITS ---
History of Present Illness History of Present Illness Chief complaint: infection in foot and kidney inection Narrative: This is a pleasant 60-year-old with known rheumatoid arthritis who has had problems with her foot in the past. She has a foot problem which she thought was probably a plantar's wart. Her Boyfriend thought he saw drainage. She went to urgent care where was obviously draining infectious appearing materials from her foot. She is currently on medications for rheumatoid arthritis. She notes chronic problems with her left great toe and she says she does not put any weight on that because of the deformity in her foot. She denies a history of diabetes. She is a longstanding smoker about 40 years with up to a pack a day who is currently on [place] and has cut back on smoking to about 5 cigarettes a day. Discharge Providers Provider Date of admission: 03/18/20 23:57 Discharge Date: 03/22/20 Primary care physician: Eric Banda MD Consults: 03/18/20 23:23 Consult to Discharge Planning Routine Comment: Consult to Occupational Therapy Evaluate & Treat Comment: Physician Instructions: Evaluate and treat Consult to Physical Therapy Evaluate & Treat Comment: Physician Instructions: Evaluate and Treat 03/19/20 19:23 Consult to Discharge Planning Routine Comment: Consult to Physical Therapy Evaluate & Treat Comment: Physician Instructions: Evaluate and Treat Consult to Physician Routine Comment: Consulting Provider: Latrice Saleh Reason for consultation: foot ulcer Has provider been notified: Yes Consult to Respiratory Therapy Evaluate & Treat Comment: Physician Instructions: Evaluate and treat 03/19/20 19:30 Consult to Physician Routine Comment: Consulting Provider: Latrice Saleh Reason for consultation: foot ulcer Has provider been notified: Yes 03/19/20 19:31 Consult to Wound Care Routine Comment: Consulting Provider: [facility] Discharge provider: Anjum Whaley MD Summary Hospital Course Discharge Diagnosis: 1. Left foot acute osteomyelitis 2. Rheumatoid arthritis 3. 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 Hypertension 5. History of depression, stable Patient is a 60-year-old female with rheumatoid arthritis on immunosuppressive therapy, hypertension, active smoker admitted due to left foot infection. 1. Left foot ulceration/osteomyelitis, acute, present on admission -MRI suggestive of osteomyelitis of 3rd MTP joint -status post incision and debridement on 03/19/[address] Latrice Saleh, per operative note patient may need foot reconstructive surgery -wound cultures from admission and surgical cultures from 03/19 growing pansensitive Staph aureus -Dr Brooks consulted for wound care -cefazolin 1 g IV q.8 hours started on 03/20 for likely duration of 6 weeks IV therapy, monitor antibiotic therapy with CBC, CMP once weekly -[facility] soft patient prior to discharge and provided education on antibiotic administration -PICC placed -arterial duplex normal -follow-up at Wound Care Wednesday next week and with Ortho on Wednesday next week 2. Hypokalemia, acute, present on admission -by history patient with recurrent hypokalemia secondary to thiazide diuretic -K on admit 2.7, corrected with potassium replacement -started oral KCL 20 mEq daily to continue as outpatient 3. Rheumatoid arthritis, control unknown, present on admission -will hold Xeljanz & Leflunomide medications for now given acute infection, will continue patient's nortriptyline and pregabalin 4. Hypertension, chronic -continue patient's oral metoprolol and HCTZ -continue atorvastatin for hyperlipidemia 5. History of depression -continue venlafaxine, mood appears stable Status at Discharge Cognitive/behavioral status at discharge: oriented Functional status at discharge: independent ambulation Overall status at discharge: patient is progressing back to baseline Time Spent with Patient Time spent: Greater than 30 minutes Exam Vital Signs (past 8 hours): Oxygen Delivery Method Room Air Oxygen Flow Rate 0 Objective Labs Result Diagrams: 03/20/20 05:12 03/19/20 04:52 [facility] Medical History Hyperlipidemia Hypertension Rheumatoid arthritis Surgical History History of amputation of toe Family History Father Cancer Mother Hypertension Social History household members: spouse Smoking Status: Current every day smoker alcohol intake: current Discharge Plan Discharge Plan Patient Disposition: Home Nursing Discharge Comment: Patient states Dr Saleh said she was going to give her Rx for modified walking shoe. Please check with VALERIA Valverde or Dr Saleh Discharge orders & Medications Prescriptions: New cefazolin 1 gram recon soln 1 g IV Q8HR 42 Days Qty: 126 RF: 0 potassium chloride 20 mEq tablet extended release 20 meq PO DAILY Qty: 30 RF: 0 hydrocodone-acetaminophen 5-325 mg tablet 1 tab PO Q6H PRN (Reason: postop pain) Qty: 30 RF: 0 Continued doxycycline hyclate 100 mg capsule 100 mg PO BID 7 Days Qty: 14 RF: 0 mupirocin 2 % ointment 1 applic topical TID Qty: 30 RF: 0 metoprolol tartrate 50 mg Tablet 50 mg BID RF: 0 Chantix 1 mg Tablet 1 mg PO BID RF: 0 atorvastatin 20 mg Tablet 20 mg PO DAILY RF: 0 leflunomide 20 mg Tablet 20 mg PO DAILY RF: 0 venlafaxine 37.5 mg Tablet 37.5 mg PO BID RF: 0 hydrochlorothiazide 25 mg Tablet 25 mg PO DAILY RF: 0 nortriptyline 50 mg Capsule 50 mg PO DAILY RF: 0 pregabalin 150 mg Capsule 150 mg PO BID RF: 0 Xeljanz 5 mg Tablet 5 mg PO BID RF: 0 Follow up/Referrals: Eric Banda MD [Primary Care Provider] - Dong Brooks MD [Physician] - 03/27/20 Latrice Saleh MD [Physician] - 03/27/20 3:00 pm (appt:03/27 @ 3:[address] mariah palmer [facility] please call your pcp office to request referal) Discharge Health Status Multidrug resistant organism: No MDRO Diet/Activity/Treatments Diet: Regular Skin/Wound/Dressing Care Report to your healthcare provider any signs of infection, such as:: chills, fever, increased pain, unusual drainage and unusual redness Visit Report/Discharge Packet Instructions: Potassium, How to Prevent Falls, DI for Prescription Opioid Use, Stool Softeners, DI for Incision and Drainage of a Joint, DI for Incision and Drainage, [facility]: Wound Care Stand Alone Forms: Surgery Discharge Discharge Data Primary Care Provider: Eric Banda Quality VTE Deep Vein Thrombosis/Pulmonary Embolism Present on Admission: No
== END 2020-03-22 15:21 | disposition home or self-care (01) | DRG 516 ==
LOC: ED 22:49 → AC 23:58
PROVIDERS: Internal Medicine; Orthopaedic Surgery; Admitting Provider Nurse Practitioner Family; Emergency Provider Emergency Medicine; PCP Family Medicine; Referring Provider Emergency Medicine; Visit Provider Nurse Practitioner Family
PROC: 0QBR0ZZ Excision of Left Toe Phalanx, Open Approach (ICD-10-PCS; principal; 2020-03-19 20:00)
DX: M86.172 Other acute osteomyelitis, left ankle and foot (principal); L97.526 Non-pressure chronic ulcer of other part of left foot with bone involvement without evidence of necrosis; E87.6 Hypokalemia; L03.032 Cellulitis of left toe; M06.9 Rheumatoid arthritis, unspecified; Z79.899 Other long term (current) drug therapy; M89.772 Major osseous defect, left ankle and foot; M25.472 Effusion, left ankle; Z89.422 Acquired absence of other left toe(s); B95.61 Methicillin susceptible Staphylococcus aureus infection as the cause of diseases classified elsewhere; I10 Essential (primary) hypertension; T50.2X5A Adverse effect of carbonic-anhydrase inhibitors, benzothiadiazides and other diuretics, initial encounter; F17.210 Nicotine dependence, cigarettes, uncomplicated; E78.5 Hyperlipidemia, unspecified; Z20.822 Contact with and (suspected) exposure to COVID-19
CPT/HCPCS: 36415; 36569; 71045; 73630; 73720; 80048; 80053; 81001; 83036; 83605; 83690; 83735; 84145; 85025; 85027; 85610; 85651; 85730; 86140; 87040; 87070; 87075; 87077; 87147; 87176; 87186; 87205; 87635; 93005; 93010; 93925; 94760; 96365; 96367; 96368; 96375; 97116; 97161; 97165; 97530; 97535; 99283; 99284; C9803; J1100; J1170; J1650; J2250; J2405; J2543; J2704; J3480

== ENCOUNTER → 2020-03-27 09:37 | Outpatient (CLI) | payer OTHER, SELFPAY ==
[2020-03-19 00:50] VITALS: BMI 25.0
== END ==
PROVIDERS: PCP Family Medicine; Referring Provider Orthopaedic Surgery; Visit Provider Family Medicine
DX: S91.302A Unspecified open wound, left foot, initial encounter (principal); M86.172 Other acute osteomyelitis, left ankle and foot; M06.9 Rheumatoid arthritis, unspecified; M21.6X2 Other acquired deformities of left foot; L03.116 Cellulitis of left lower limb; R60.0 Localized edema; Z79.2 Long term (current) use of antibiotics; F17.200 Nicotine dependence, unspecified, uncomplicated
CPT/HCPCS: 11042; 99204; 99213

== ENCOUNTER → 2020-04-03 11:14 | Outpatient (CLI) | payer OTHER, SELFPAY ==
[2020-03-19 00:50] VITALS: BMI 25.0
== END ==
PROVIDERS: PCP Family Medicine; Referring Provider Family Medicine; Visit Provider Family Medicine
DX: S91.105A Unspecified open wound of left lesser toe(s) without damage to nail, initial encounter (principal)
CPT/HCPCS: 99213

== ENCOUNTER → 2020-04-10 11:04 | Outpatient (CLI) | payer OTHER, SELFPAY ==
[2020-03-19 00:50] VITALS: BMI 25.0
== END ==
PROVIDERS: PCP Family Medicine; Referring Provider Family Medicine; Visit Provider Family Medicine
DX: S91.302A Unspecified open wound, left foot, initial encounter (principal); M86.172 Other acute osteomyelitis, left ankle and foot; M06.9 Rheumatoid arthritis, unspecified; M21.6X2 Other acquired deformities of left foot; Z79.2 Long term (current) use of antibiotics; F17.200 Nicotine dependence, unspecified, uncomplicated
CPT/HCPCS: 99213

== ENCOUNTER → 2020-04-16 09:24 | Outpatient (CLI) | payer OTHER, SELFPAY ==
[2020-03-19 00:50] VITALS: BMI 25.0
== END ==
PROVIDERS: PCP Family Medicine; Referring Provider Family Medicine; Visit Provider Family Medicine
DX: S91.302A Unspecified open wound, left foot, initial encounter (principal); M86.172 Other acute osteomyelitis, left ankle and foot; M06.9 Rheumatoid arthritis, unspecified; M21.6X2 Other acquired deformities of left foot; Z79.2 Long term (current) use of antibiotics; Z72.0 Tobacco use
CPT/HCPCS: 97597

== ENCOUNTER → 2020-08-21 08:08 | Outpatient (CLI) | payer OTHER, MEDICAID, SELFPAY ==
[2020-03-19 00:50] VITALS: BMI 25.0
[2020-08-21 11:40] LABS: COVID19 -Nasal RAPID Negative (Negative)
== END ==
PROVIDERS: PCP Family Medicine; Visit Provider Physician Assistant
DX: Z01.812 Encounter for preprocedural laboratory examination (principal); Z20.822 Contact with and (suspected) exposure to COVID-19
CPT/HCPCS: 87635

== ENCOUNTER 2020-08-23 06:29 | Day surgery (SDC) | payer OTHER, MEDICAID, SELFPAY ==
[2020-03-19 00:50] VITALS: BMI 25.0
[2020-08-19 09:46] VITALS: BMI 26.1
[2020-08-23] VITALS (7 sets, daily range): BP systolic 112–135; BP diastolic 61–86; PULSE 71–86; RESP 13–16; TEMP 36.2–36.6; O2SAT 93–99; BMI 26.1
[2020-08-23] MEDS: ACETAMINOPHEN 325 MG TABLET 975 MG PO (07:15)
[2020-08-23] MEDS: LACTATED RINGERS 1,000 ML 42 ML IV ×2 (07:15→10:25)
--- NOTE | 2020-08-23 07:15 | PM.PREOP ---
Pre-operative Note COVID-19 COVID-19 status: Negative Interval Note History & Physical reviewed/Exam performed by Physician: Yes Changes to H&P: No
[2020-08-23] MEDS: CEFAZOLIN 1 GM VIAL 2 GM IV (08:01)
--- NOTE | 2020-08-23 08:01 | SUR.PREOP ---
Block start time [0733] . Monitoring initiated and maintained throughout procedure. Oxygen and medications given per anesthesiologist Jerry Reno. Patient remained stable throughout procedure, no adverse reactions noted. Block end time [0740].
--- NOTE | 2020-08-23 08:02 | SUR.PREOP ---
Pt left for OR with Meghann,RN in stable condition.
--- NOTE | 2020-08-23 08:43 | PM.PROC.1 ---
Procedures Date/Time Date of procedure: 08/23/20 Time of procedure: 07:37 Nerve Block Time out performed: Yes Local anesthetic used: bupivacaine 0.5% Location of anesthetic used: violet-popliteal nerve Amount of anesthesia used (mL): 15 Nerve blocks: peroneal (popliteal) Procedure successful: Yes Patient tolerated procedure: well and no complications Additional comments: Popliteal nerve block performed for post-op pain control at surgeon request. Patient was positioned with IV, O2, monitors and rescue meds available. Prepped and timeout performed. Target identified with continuous ultrasound guidance. 15mL of bupivicaine 0.5% was injected perineurally with intermittent aspiration and injection. No blood, no paresthesias, no acute complications.
--- NOTE | 2020-08-23 08:45 | PM.PROC.1 ---
Procedures Date/Time Date of procedure: 08/23/20 Time of procedure: 07:40 Nerve Block Time out performed: Yes Local anesthetic used: bupivacaine 0.5% Location of anesthetic used: adductor canal Amount of anesthesia used (mL): 15 Nerve blocks: femoral (adductor canal) Procedure successful: Yes Patient tolerated procedure: well and no complications Additional comments: Adductor canal nerve block performed for post-op pain control at surgeon request. Patient was positioned with IV, O2, monitors and rescue meds available. Prepped and timeout performed. Target identified with continuous ultrasound guidance. 15mL of bupivicaine 0.5% was injected perineurally with intermittent aspiration and injection. No blood, no paresthesias, no acute complications.
[2020-08-23] MEDS: NITROGLYCERIN OINT 1 INCH/GM OINT...G. 1.5 INCH TOP (10:19)
--- NOTE | 2020-08-23 11:17 | P.OP_ITS ---
Operative Date/Time/Diagnoses Date of procedure: 08/23/20 Time of procedure: 08:00 Pre-op diagnosis: Rheumatoid arthritis foot deformity left M05.672. Hammertoes, metatarsalgia, arthritis 1st MTP joint Post-op diagnosis: same Procedure & Clinicians Procedure: 1. First MTP arthrodesis left great toe CPT code 19501 -L TA 2. Metatarsal head resection 2nd 3rd and 4th metatarsals CPT code 07836s7 (for 2nd 3rd and 4th metatarsal head resection) (T1, T2, T3)-59 3. Metatarsal head resection 5th metatarsal head cpt 01361 (5th mt head T4) 4. Correction hammertoes CPT code 33087a4 (tT, T3,T4 )-59 Same procedure as scheduled: Yes Indications: The patient is a 60-year-old female with rheumatoid arthritis severely affecting her feet. 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 She had a history of osteomyelitis and a wound at the great toe that is been treated with IV antibiotics and has since healed and her inflammatory markers normalized. She was now indicated for a rheumatoid forefoot reconstruction or clean Malave type procedure with a 1st MTP arthrodesis resection of lesser metatarsal heads and correction pinning of the hammertoes. Procedures to restore plantar grade foot prevent pain dysfunction and further wound breakdown. The risks and benefits of the procedure have been discussed with the patient even opportunity to ask questions. The risks of surgery include but are not limited to infection, malunion, nonunion, persistence of pain, damage to nerves and blood vessels, posttraumatic arthritis, DVT, PE, cardiopulmonary complications and . The patient expressed a thorough understanding of the risks and benefits of surgery and has elected to proceed. Consent was signed in the office. Further she has been off of her Xeljanz and will remain off of this until at least 2 weeks after surgery or when the incisions are healed. 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 Metatarsal head was able to be reamed with care to minimize shortening. The proximal phalanx the metatarsal base was debrided with a rongeur and a bur due to its irregularities. Additional bone graft from the metatarsal head resections was used for bone grafting laterally.. There was good contact medially. The 1st ray was pinned in place and checked on a flat plate a lag screw was placed followed by a dorsal plate. Then attention was turned to the lesser metatarsal heads which was resected in a parabola and hammertoe corrections were undertaken for the 3rd 4th and 5th toes. Closure Type: primary Specimen(s): none sent Prosthetic devices, grafts, tissues, transplants, or devices: [place] 28 small Left 5deg MTP plate 4.0 headless lag screw 30mm 4X 062 K wires Estimated Blood Loss (mL): 20 Blood products transfused: none Tourniquet time (min): 120 Procedure in detail: Patient was seen in the preoperative area the site of surgery marked informed consent confirmed she was brought back to the operating room by the anesthesia team. She had a regional block placed for postoperative pain control by the anesthesia team. She was then positioned supine on operative table. All bony prominences well padded. Well-padded thigh tourn iquet was placed. A ipsilateral thigh bump was placed. SCDs were placed on the contralateral lower extremity. General anesthetic was administered. The left lower extremities prepped and draped in the standard sterile fashion. A formal time-out procedure was performed confirming the patient's side and site of surgery and administration of appropriate preoperative antibiotics. All were in agreement. Preoperative antibiotic was 2 g of Ancef. Esmarch was used for exsanguination the tourniquet raised on the thigh to 250 mmHg this was elevated for 120 minutes and then released prior to closure. First MTP fusion: Attention was turned to the left foot great toe a dorsal incision just medial to the EHL was taken down through the skin subcutaneous tissues. Suppressive dissection was taken down to the level of the joint. The EHL was retracted laterally. The joint was opened there was significant fibrosis and scar tissue. There was severe bone loss to the plantar lateral aspect of the proximal phalanx. The joint was released and the 1st metatarsal head exposed. A 21 female Reamer from the paragon set was used to debride the metatarsal head and then this was touched up with a rongeur with care to minimize shortening with her soft bone. The proximal phalanx head was then debrided by hand using a rongeur a curette and then a bur to achieve bleeding cancellous bone surfaces. Once this was completed the joint was reduced. There was bone loss plantarly and laterally at the proximal phalanx but there was good medial contact that I wanted to keep for a shoulder for intra lag screw therefore the void was grafted with a metatarsal head resection bone. The toe was pinned in place and placed against the flat plate with appropriate alignment and then a 5 degree small plate from the paragon set was fit to the toe and placed with olive wires. The guide for the inter frag lag screw was placed and the guidewire for the inter frag lag screw placed. A 4-0 headless cannulated s crew was placed achieving excellent bite and good compression along the medial aspect of the proximal phalanx into the 1st metatarsal. Then the a dorsal plate was placed in the standard fashion. Interestingly there was interference with the inter frag screw in 2 of the locking holes in the proximal aspect of the plate even though the guide was used. Therefore short locking screws were placed in these holes. A good bicortical screw was placed in the oblong hole. The plate was locked distally prior to a proximal screw placement. Alignment fixation was appropriate confirmed on intraoperative fluoroscopy. Lesser metatarsal head excisions and separate hammertoe corrections: Next attention was turned to the metatarsal head excisions a incision was made between the 2nd and 3rd metatarsals and between the 4th and 5th metatarsals suppressive dissection was taken down to expose the metatarsal heads and necks the TTS saw was used to resect the metatarsal head of the 2nd metatarsal 1st and then in a probable formation the 3rd metatarsal and the 4th and the 5th. The 3rd metatarsal head was pre-existing a deformity and nearly destructed did not require much resection was more of a neck resection. Again some of the viable bone from the metatarsal head resections was used as bone graft for the 1st MTP joint. In this way the 2nd 3rd 4th and 5th metatarsal heads were resected. Separate incisions were made longitudinally over the PIP joint of the 3rd 4th and 5th toes for the hammertoe corrections and the condyles of the proximal phalanx resected again with the TTS saw. The 2nd toe had a previous partial amputation and did not require hammertoe correction. Once the resections were completed the joints were sequentially lined up and 062 K-wires were used to pin the 2nd TMT joint in a retrograde fashion 1st out the proximal phalanx and then back into the metatarsal and then in the 3rd 4th and 5th toes retrograde crossed fixation of the PIP and the IP joints and then back into the metatarsals to fix both the MTP joints and the hammertoe corrections. Alignment was then checked again on AP and lateral mini C-arm fluoroscopy pins were in the appropriate positions and joints were aligned appropriately there was a appropriate parabola formed from the metatarsal resections. Tourniquet was released hemostasis was achieved. Third toe was noted to be a little pale and slow to pink up but this was washed over the course of closing and improved and nicely by the end of closure we did put a little nitropaste on it during this time as well. Wounds were irrigated and closed with 2-0 Vicryl 4 0 Monocryl and 4-0 nylon suture. Dressings were placed with fluffs between the toes as Xeroform gauze 4 x 4 gauze Webril and a posterior splint. Pins were trimmed and caps placed. For a nice and pink at the end of the case. The drapes were taken down the patient was taken to the postoperative unit in good condition. There no immediate complications from this procedure. Complications: none Post-operative Condition: stable Disposition: PACU Plan for aftercare: Nonweightbearing on the left lower extremity may put the heel down for transfers otherwise elevate above the heart level. Will start taking aspirin for DVT prophylaxis on postoperative day 1. Continue to abstain from smoking. Pain medications were sent to her pharmacy electronically and 5 mg of oxycodone and Zofran for nausea. May also take Tylenol and ibuprofen. Follow-up in 2 weeks.
== END 2020-08-23 12:01 | disposition home or self-care (01) ==
PROVIDERS: PCP Family Medicine; Referring Provider Orthopaedic Surgery Foot and Ankle Surgery; Visit Provider Orthopaedic Surgery Foot and Ankle Surgery
PROC: (CPT 28750; principal; 2020-08-23 07:45)
DX: M05.771 Rheumatoid arthritis with rheumatoid factor of right ankle and foot without organ or systems involvement (principal); M20.42 Other hammer toe(s) (acquired), left foot; E78.5 Hyperlipidemia, unspecified; I10 Essential (primary) hypertension; F32.9 Major depressive disorder, single episode, unspecified; F17.210 Nicotine dependence, cigarettes, uncomplicated
CPT/HCPCS: 28750; 28285 ×3; 28114; 64450; J0690; J1100; J1885; J2250; J2405; J2704; J3010

== ENCOUNTER 2020-09-20 12:16 | Day surgery (SDC) | payer OTHER, MEDICAID, SELFPAY ==
[2020-03-19 00:50] VITALS: BMI 25.0
[2020-09-18 14:04] VITALS: BMI 25.8
[2020-09-20] VITALS (8 sets, daily range): BP systolic 116–160; BP diastolic 61–78; PULSE 63–71; RESP 14–18; TEMP 36.3–36.6; O2SAT 9–98; BMI 25.8
[2020-09-20] MEDS: LACTATED RINGERS 1,000 ML 42 ML IV (13:09)
--- NOTE | 2020-09-20 14:11 | PM.PREOP ---
Pre-operative Note COVID-19 COVID-19 status: Negative Interval Note History & Physical reviewed/Exam performed by Physician: Yes Changes to H&P: No
[2020-09-20 14:28] LABS: COVID19 -Nasal RAPID Negative (Negative)
[2020-09-20] MEDS: CEFAZOLIN 1 GM VIAL 2 GM IV (14:45)
[2020-09-20] MEDS: BUPIVACAINE 0.25% W/ EPI 30 ML VIAL INJ (15:08)
--- NOTE | 2020-09-20 15:11 | SUR.OPER ---
Supine on padded OR bed, head on pillow, arms secured on padded arm boards at <90 degrees abduction, legs uncrossed, safety belt across abdomen, tape over blanket over nonoperative lower leg, bump under operative thigh.
--- NOTE | 2020-09-20 15:50 | P.OP_ITS ---
Operative Date/Time/Diagnoses Date of procedure: 09/20/20 Time of procedure: 15:11 Pre-op diagnosis: Gangrene toe left foot, 3rd: I96 Rheumatoid arthritis involving both feet: M05.771 Post-op diagnosis: same Procedure & Clinicians Procedure: Amputation toe partial left 3rd toe T2 CPT 360625 Modifier 78 for return to OR Same procedure as scheduled: Yes Indications: The patient is a 60-year-old female with a history of rheumatoid arthritis and rheumatoid foot deformities and osteomyelitis she had ulcerations and osteomyelitis of previously she underwent treatment for that and then a correction of her rheumatoid foot. She correction of her rheumatoid forefoot about 5 weeks ago was complicated by swelling and a large blood blister ulti mately manifesting in a tissue necrosis of the dorsal distal aspect of the left 3rd toe. Dry gangrene over the distal and partial middle phalanx on the dorsal surface. Over time this demarcated and was indicated for partial toe amputation. We discussed any mutation through the base of the proximal phalanx which would avoid adjacent toe drift and allow closure of remaining healthy viable tissue. The risks and benefits of the procedure have been discussed with the patient even opportunity to ask questions. The risks of surgery include but are not limited to infection, malunion, nonunion, persistence of pain, damage to nerves and blood vessels, posttraumatic arthritis, DVT, PE, cardiopulmonary complications and . The patient expressed a thorough understanding of the risks and benefits of surgery and has elected to proceed. Consent was signed in the office. Surgeon: Leticia Banda Click Yes if Unassisted: Yes Anesthesia Type: General and Local (3 cc of Marcaine with epinephrine 0.25%) Operative Notes Findings: Dry necrosis involving the 3rd toe left foot involving the distal phalanx and partial the middle phalanx along the dorsal or extensor surface., previous nail loss. Closure Type: primary Specimen(s): none sent Estimated Blood Loss (mL): 1 Blood products transfused: none Tourniquet time (min): 14 Procedure in detail: Patient was seen in the preoperative area the site of surgery was marked informed consent confirmed. She was brought back to the oper ating room by the anesthesia team positioned supine on the operative table. General anesthetic was administered. Bony prominences well padded. The left lower extremities prepped and draped in the standard sterile fashion. A thigh tourniquet was placed. An SCD was placed on the contralateral lower extremity. A formal time-out procedure was performed confirming the patient's side and site of surgery. Administration of appropriate preoperative antibiotics and presence of informed consent. All were in agreement. Attention turned to the left lower extremity. As previously discussed with the patient, sutures removed from her other incisions. Then attention was turned to her left 3rd toe. Again there was a dorsal necrosis up to the middle phalanx. [place]or for planning of the amputation were marked out. The C-arm was brought in and the level of the base of the proximal phalanx was marked out on the skin. The Esmarch was used and a tourniquet elevated on the thigh to 250 mmHg. A f ishmouth type incision with a dorsal extension into the previous intermetatarsal incision was completed the digit was disarticulated through the PIP joint and removed. Next the base of the proximal phalanx was dissected out extensor tendons were cut and retracted exposing the proximal phalanx. C-arm was brought in level of the desired cut was marked and then the TPS saw was used to cut the proximal phalanx at the base leaving enough of a proximal phalanx to act as a stabilizing component to prevent adjacent digit drift. Once this was completed final C-arm imaging was obtained confirming appr opriateness of resection margin. Wound was thoroughly irrigated. The wound was closed with 3-0 PDS, 4-0 Monocryl, 3-0 nylon. Tissue edges approximated well. The foot pinked up nicely with tourniquet released. Hemostasis was achieved. 3 cc of local anesthetic was infiltrated for postoperative pain control. The foot was washed and dried. Steri-Strips were placed on the previous incisions. Then the wounds were dressed with Xeroform gauze Junie wrap Webril and an Shola wrap and ABD pad. Drapes removed the patient was woken from anesthesia and was taken to the recovery room in good condition. There no immediate complications from this procedure. Counts were correct. Complications: none Post-operative Condition: stable Disposition: PACU Plan for aftercare: Heel weight-bearing in the offloading shoe. Continue previous postoperative care. Will return to clinic in 2 weeks for follow-up at which time we will consider suture removal but will also remove adjacent metatarsophalangeal K-wires from the previous rheumatoid correction. Patient received her postoperative pain medication at her clinic visit this week.
--- NOTE | 2020-09-20 18:31 | SUR.PHASEII ---
Late entry: pt ready to go, dressing to L foot c/d/i. Denied pain, no nausea. Assisted pt to dress, left in stable condition.
== END 2020-09-20 17:00 | disposition home or self-care (01) ==
PROVIDERS: PCP Nurse Practitioner Family; Referring Provider Orthopaedic Surgery Foot and Ankle Surgery; Visit Provider Orthopaedic Surgery Foot and Ankle Surgery
PROC: (CPT 28825; principal; 2020-09-20 13:45)
DX: I96 Gangrene, not elsewhere classified (principal); M05.771 Rheumatoid arthritis with rheumatoid factor of right ankle and foot without organ or systems involvement; M86.172 Other acute osteomyelitis, left ankle and foot; E78.5 Hyperlipidemia, unspecified; I10 Essential (primary) hypertension; F32.9 Major depressive disorder, single episode, unspecified; M41.9 Scoliosis, unspecified
CPT/HCPCS: 28825; 87635; J0690; J2250; J2405; J2704; J3010

== ENCOUNTER 2022-01-30 11:58 | Inpatient (IN) | payer MEDICAID, OTHER, SELFPAY ==
[2020-03-19 00:50] VITALS: BMI 25.0
[2022-01-30] VITALS (16 sets, daily range): BP systolic 114–160; BP diastolic 57–86; PULSE 80–105; RESP 16–44; TEMP 35.8–36.9; O2SAT 80–97; BMI 25.8
--- NOTE | 2022-01-30 12:14 | DI.RAD.S_ITS ---
PROCEDURE: XR CHEST 1V INDICATIONS: Shortness of breath TECHNIQUE: One view of the chest was acquired. COMPARISON: [facility], CR, XR CHEST FOR PICC 1V, 03/20/2020, 14:00. FINDINGS: Surgical changes and devices: None. Lungs and pleura: Right basilar opacity is suspicious for pneumonia. Left lung is clear. No pneumothorax. Mediastinum: Mediastinal contours appear normal. Heart size is normal. Bones and chest wall: No suspicious bony lesions. Overlying soft tissues appear unremarkable. IMPRESSION: Right basilar opacities are suspicious for pneumonia. Approved by: Wilfrido Cisse M.D. on 01/30/2022 at 12:53
[2022-01-30] MEDS: ALBUTEROL/IPRATROPIUM 3 ML AMPUL INH (12:19)
[2022-01-30 12:32] LABS: Hematocrit 38.5 % (36-46); Hemoglobin 12.5 g/dL (12.0-16.0); Mean Corpuscular HGB Conc 32.4 % (30-36); Mean Corpuscular Hemoglobin 31.7 PG (26-34); Mean Corpuscular Volume 97.6 fL (80-100); Platelet Count 244 X10^3/uL (150-400); Red Blood Cell Count 3.94 X10^6/uL (4.0-5.2); Red Cell Distribution Width 14.6 % (11.6-14.8); White Blood Cell Count 27.8 X10^3/uL (4.5-11.0)
[2022-01-30 12:33] LABS: Add Manual Diff / Slide Review YES
[2022-01-30 12:39] LABS: INR 1.1 (0.9-1.3); Prothrombin Time 12.5 SECONDS (10.1-12.7)
[2022-01-30 12:42] LABS: Lactate (Lactic Acid) 1.4 mmol/L (0.7-2.1)
[2022-01-30 12:43] LABS: Alanine Aminotransferase 25 IU/L (<35); Albumin 3.5 g/dL (3.5-5.0); Albumin Globulin Ratio 0.9 (1.0-2.8); Alkaline Phosphatase 131 U/L (38-126); Aspartate Aminotransferase 25 IU/L (14-36); BUN Creatinine Ratio 15.8 (6-22); Bilirubin Total 0.6 mg/dL (0.2-1.3); Blood Urea Nitrogen 32 mg/dL (7-17); Calcium 7.9 mg/dL (8.4-10.2); Carbon Dioxide 28 mmol/L (22-32); Chloride 91 mmol/L (98-107); Estimated Glomerular Filt Rate 27 mL/min (>60); Globulin 3.8 g/dL (1.7-4.1); Glucose 105 mg/dL (80-110); HEMOLYSIS < 15 (0-50); Potassium 3.6 mmol/L (3.4-5.1); Sodium 133 mmol/L (137-145); Total Protein 7.3 g/dL (6.3-8.2)
--- NOTE | 2022-01-30 12:51 | ED_ITS ---
HPI - SOB/Dyspnea <Cece Bradford, DO - Last Filed: 02/05/22 11:39> General Chief Complaint: Shortness of Breath/Dyspnea Stated Complaint: Sent by Dr. murcia distress Time Seen by Provider: 01/30/22 12:31 Source: patient Mode of arrival: Wheelchair Limitations: no limitations History of Present Illness HPI Narrative: This is a 62-year-old female with known rheumatoid arthritis, prior pericardial effusion that was treated with colchicine believed to be from her rheumatoid, hypertension, dyslipidemia and chronic tobacco abuse. Patient presents today with increasing difficulty breathing for the past 3 days. Patient states no fever that she is aware of but she is had some nasal congestion, she is had cough, she is had increasing shortness of breath particularly with exertion she states she is just okay when seated. She has had right-sided chest pain she denies pain on the left side. She denies nausea or vomiting. No diarrhea constipation, no dysuria urgency or frequency. She denies swelling in her extremities. Patient states that her sap manager did have her stop her devan roids for her rheumatoid in the past week because several members in the same household have had COVID in the past 2 weeks. Patient still on all her other medications. She states she had prior surgery with toe amputation secondary to rheumatoid arthritis and reconstructive surgery in her foot remotely. Patient has not had any cardiac stents or interventions. She does smoke tobacco daily, drinks 3 alcoholic drinks daily, she denies THC or other illicits. She does not use home oxygen and never has. Her primary care Lala velazquez. Her sap manager is Dr. Correa out of [facility]. Related Data Home Medications Medication Instructions Recorded Confirmed venlafaxine 37.5 mg 37.5 mg PO 2XD 01/30/22 01/30/22 capsule,extended release 24 hr Previous Rx's Medication Instructions Recorded leflunomide 20 mg tablet 20 mg PO DAILY #90 tabs 12/04/20 colchicine 0.6 mg capsule See Rx Instructions .Route 12/31/20 .COMPLEX #180 caps atorvastatin 20 mg tablet 20 mg PO DAILY #90 tabs 08/20/21 hydrochlorothiazide 25 mg tablet 25 mg PO DAILY #90 tabs 08/20/21 metoprolol tartrate 50 mg tablet 50 mg PO BID #180 tabs 08/20/21 nortriptyline 50 mg capsule 50 mg PO DAILY #90 caps 08/20/21 pregabalin 150 mg capsule 150 mg PO BID #180 caps 08/20/21 Allergies Allergy/AdvReac Type Severity Reaction Status Date / Time lisinopril Allergy Severe angioedema Verified 01/30/22 12:15 Review of Systems <Cece Bradford - Last Filed: 02/05/22 11:39> Review of Systems ROS Unobtainable: All systems reviewed & are unremarkable except as noted in HPI and below Patient History <Cece BradfordDO - Last Filed: 02/05/22 11:39> Medical History Alcohol dependence Anemia Anxiety Chronic back pain (~2013) COVID-19 virus infection Degenerative joint disease (DJD) of lumbar spine (~1975) Hyperlipidemia Hypertension Osteoarthritis (~2013) Pneumonia Rheumatoid arthritis (~2009) Scoliosis (~1975) Tobacco dependence Surgical History Anesthesia History of amputation of toe (~2018) History of incision and drainage (03/19/20) Status post left foot surgery (08/23/20) Family History Father Cancer Hypertension Hyperlipidemia Mother Hypertension Brother Testicular cancer Hypertension Brother Diabetes mellitus Hypertension Hyperlipidemia Social History household members: significant other and family Smoking Status: Current every day smoker Tobacco: How many years used: 40 quit status: quit date established (September 08 2020) second hand exposure: No alcohol intake: current substance use type: does not use Smoking Status: Current every day smoker alcohol intake frequency: 3 or more drinks per day Substance Use Type: opiates Exam <Cece Bradford - Last Filed: 02/05/22 11:39> Narrative Exam Narrative: GENERAL: Alert and oriented x three, well-nourished female in [id number] distress. HEENT: Head normocephalic, atraumatic, EOMI, pupils reactive, nares have slight rhinorrhea, face symmetric, moist mucous membranes NECK: Supple, full range of motion CARDIOVASCULAR: Slightly tachycardic 102-105, Regular rate and rhythm without murmurs, rubs or gallops. No swelling bilateral lower extremity. RESPIRATORY: Breath sounds decreased on the right compared to the left, no wheezes, rales or rhonchi. Positive for tachypnea. Speaks in 4-5 word sentences. ABDOMEN: Soft, nontender. Normoactive bowel sounds all 4 quadrants. No guarding or rebound, rigidity, no mass : No CVA tenderness EXTREMITIES: Normal range of motion, no clubbing or edema. Neurovascularly intact NEUROLOGICAL: Cranial nerves II through XII grossly intact. Moving all extremities SKIN: Warm, dry, no petechiae, no rashes or lesions. Initial Vital Signs Initial Vital Signs: Vital Signs Pulse Rate 105 H 01/30/22 12:09 Blood Pressure 132/69 01/30/22 12:09 <Lexie Caldwell MD - Last Filed: 01/31/22 22:38> Initial Vital Signs Initial Vital Signs: Vital Signs Pulse Rate 105 H 01/30/22 12:09 Blood Pressure 132/69 01/30/22 12:09 <Lexie Caldwell MD - Last Filed: 01/31/22 22:38> Central Line Placement Left IJ: Time of procedure: 05:03 Time Out Performed: Yes Patient Placed on Monitor/Pulse Ox: Yes MD Prep: mask, gown and gloves Central Line Prep: Chlorhexidine scrub Ultrasound Used for Placement: Yes Central Line Lumen Inserted: triple Post Procedure: sutured in place, good blood return, all ports aspirated, flushed, capped and sterile dressing applied Post Procedure X-Ray: tip of catheter in good position, no pneumothorax seen and other (ET tube in good position ) Patient Tolerated Procedure: Well Complications: none Additional Comments: Patient was admitted to the floor, decompensated and was intubated. Staff asked for assistance with central access as her only IV access was a tenuous peripheral in the left arm. Course <Cece Bradford DO - Last Filed: 02/05/22 11:39> Orders Ordered: Acetaminophen (Acetaminophen 325 Mg Tablet) 650 mg PO Q6H PRN PRN Reason: Fever/Mild Pain (1-3) Albuterol (Albuterol 2.5 Mg/3 Ml Neb (Adult)) 2.5 mg INH [id number] PRN PRN Reason: Shortness Of Breath Last Admin: 02/05/22 01:38 Dose: 2.5 mg Documented By: Admin: 02/03/22 13:37 Dose: 2.5 mg Documented By: Admin: 02/03/22 03:10 Dose: 2.5 mg Documented By: Admin: 02/02/22 17:20 Dose: 2.5 mg Documented By: Admin: 02/02/22 13:33 Dose: 2.5 mg Documented By: Admin: 02/01/22 17:07 Dose: 2.5 mg Documented By: Admin: 01/31/22 01:15 Dose: 2.5 mg Documented By: Admin: 01/30/22 16:51 Dose: 2.5 mg Documented By: SAT Albuterol/Ipratropium (Albuterol/Ipratropium 3 Ml Ampul) 3 ml INH [id number] [facility] Admin: 02/05/22 10:32 Dose: 3 ml Documented By: Admin: 02/05/22 10:29 Dose: Not Given Documented By: Admin: 02/04/22 23:59 Dose: 3 ml Documented By: Admin: 02/04/22 20:58 Dose: 3 ml Documented By: Admin: 02/04/22 20:58 Dose: 3 ml Documented By: Admin: 02/04/22 13:11 Dose: Not Given Documented By: Admin: 02/04/22 07:41 Dose: 3 ml Documented By: Admin: 02/03/22 22:24 Dose: 3 ml Documented By: Admin: 02/03/22 19:39 Dose: 3 ml Documented By: Admin: 02/03/22 15:17 Dose: 3 ml Documented By: Admin: 02/03/22 11:39 Dose: 3 ml Documented By: Admin: 02/03/22 07:23 Dose: 3 ml Documented By: Admin: 02/02/22 22:28 Dose: 3 ml Documented By: Admin: 02/02/22 22:28 Dose: Not Given Documented By: Admin: 02/02/22 15:17 Dose: 3 ml Documented By: Admin: 02/02/22 10:16 Dose: 3 ml Documented By: Admin: 02/02/22 07:27 Dose: 3 ml Documented By: Admin: 02/02/22 07:27 Dose: Not Given Documented By: Admin: 02/01/22 21:32 Dose: 3 ml Documented By: Admin: 02/01/22 16:24 Dose: 3 ml Documented By: Admin: 02/01/22 10:39 Dose: 3 ml Documented By: Admin: 02/01/22 07:56 Dose: 3 ml Documented By: NadiaK Admin: 01/31/22 22:24 Dose: 3 ml Documented By: Admin: 01/31/22 17:36 Dose: 3 ml Documented By: Admin: 01/31/22 17:24 Dose: Not Given Documented By: Admin: 01/31/22 12:22 Dose: 3 ml Documented By: Admin: 01/31/22 12:22 Dose: Not Given Documented By: Admin: 01/31/22 01:12 Dose: Not Given Documented By: Admin: 01/31/22 01:11 Dose: 3 ml Documented By: Budesonide (Budesonide 0.5 Mg/2 Ml Neb) 0.5 mg INH RTBID [facility] Last Admin: 02/05/22 10:32 Dose: 0.5 mg Documented By: Admin: 02/04/22 20:58 Dose: 0.5 mg Documented By: Admin: 02/04/22 07:41 Dose: 0.5 mg Documented By: Admin: 02/03/22 19:39 Dose: 0.5 mg Documented By: LEVI Chlordiazepoxide HCl (Chlordiazepoxide 25 Mg Capsule) 100 mg PO TID [facility] Last Admin: 02/05/22 09:25 Dose: 100 mg Documented By: Admin: 02/04/22 20:48 Dose: 100 mg Documented By: Admin: 02/04/22 16:30 Dose: 100 mg Documented By: TIKA Chlorhexidine Gluconate (Chlorhexidine Gluconate 15 Ml Cup) 15 ml PO Q6H [facility] Last Admin: 02/05/22 11:04 Dose: 15 ml Documented By: Admin: 02/05/22 05:05 Dose: 15 ml Documented By: Admin: 02/04/22 21:03 Dose: 15 ml Documented By: Admin: 02/04/22 16:31 Dose: 15 ml Documented By: Admin: 02/04/22 10:06 Dose: 15 ml Documented By: Admin: 02/04/22 04:07 Dose: 15 ml Documented By: Admin: 02/04/22 00:19 Dose: Not Given Documented By: Admin: 02/03/22 16:34 Dose: 15 ml Documented By: Admin: 02/03/22 11:15 Dose: 15 ml Documented By: Admin: 02/03/22 03:51 Dose: 15 ml Documented By: Admin: 02/02/22 21:03 Dose: 15 ml Documented By: Admin: 02/02/22 16:06 Dose: 15 ml Documented By: GLADIS Famotidine (Famotidine 20 Mg/2 Ml Vial) 20 mg IV BID [facility] Last Admin: 02/05/22 09:03 Dose: 20 mg Documented By: Admin: 02/04/22 20:48 Dose: 20 mg Documented By: Admin: 02/04/22 07:54 Dose: 20 mg Documented By: Admin: 02/03/22 20:58 Dose: 20 mg Documented By: Admin: 02/03/22 08:56 Dose: 20 mg Documented By: Admin: 02/02/22 21:03 Dose: 20 mg Documented By: Admin: 02/02/22 09:36 Dose: 20 mg Documented By: Admin: 02/01/22 21:00 Dose: 20 mg Documented By: Admin: 02/01/22 11:02 Dose: 20 mg Documented By: Folic Acid (Folic Acid 1 Mg Tablet) 1 mg PO DAILY [facility] Last Admin: 02/05/22 09:03 Dose: 1 mg Documented By: Admin: 02/04/22 07:53 Dose: 1 mg Documented By: Admin: 02/03/22 08:57 Dose: 1 mg Documented By: Admin: 02/02/22 09:37 Dose: 1 mg Documented By: Admin: 02/01/22 09:19 Dose: 1 mg Documented By: Admin: 01/31/22 09:48 Dose: 1 mg Documented By: Furosemide (Furosemide 40 Mg/4 Ml Vial) 40 mg IV Q12HR [facility] Last Admin: 02/05/22 11:04 Dose: 40 mg Documented By: Admin: 02/05/22 00:15 Dose: 40 mg Documented By: Admin: 02/04/22 16:53 Dose: 40 mg Documented By: TIKA Heparin Sodium (Porcine) (Heparin 5,000 Unit/Ml Vial) 5,000 unit SUBCUT Q8HR [facility] Last Admin: 02/05/22 05:05 Dose: 5,000 unit Documented By: Admin: 02/04/22 21:01 Dose: 5,000 unit Documented By: Admin: 02/04/22 13:54 Dose: 5,000 unit Documented By: Admin: 02/04/22 06:01 Dose: 5,000 unit Documented By: Admin: 02/03/22 20:58 Dose: 5,000 unit Documented By: Admin: 02/03/22 15:41 Dose: 5,000 unit Documented By: Admin: 02/03/22 06:08 Dose: 5,000 unit Documented By: Admin: 02/02/22 21:03 Dose: 5,000 unit Documented By: Admin: 02/02/22 13:20 Dose: 5,000 unit Documented By: Admin: 02/02/22 05:13 Dose: 5,000 unit Documented By: Admin: 02/01/22 21:51 Dose: 5,000 unit Documented By: Admin: 02/01/22 15:35 Dose: 5,000 unit Documented By: Admin: 02/01/22 05:21 Dose: 5,000 unit Documented By: Admin: 01/31/22 21:05 Dose: 5,000 unit Documented By: Admin: 01/31/22 14:44 Dose: 5,000 unit Documented By: Admin: 01/31/22 05:44 Dose: 5,000 unit Documented By: AMARIS Heparin Sodium (Porcine) (Heparin Flush (Cl/Picc/Mid-Line) 50 Unit/5 Ml Syringe) 50 unit IV BID [facility] Last Admin: 02/05/22 09:04 Dose: 50 unit Documented By: Admin: 02/04/22 20:48 Dose: 50 unit Documented By: Admin: 02/04/22 07:54 Dose: 50 unit Documented By: Admin: 02/03/22 20:58 Dose: 50 unit Documented By: Admin: 02/03/22 09:04 Dose: 50 unit Documented By: Admin: 02/02/22 21:04 Dose: Not Given Documented By: Admin: 02/02/22 10:19 Dose: 50 unit Documented By: Admin: 02/02/22 01:53 Dose: 50 unit Documented By: SOY Propofol (Propofol) 1,000 mg in 100 mls @ 2.177 mls/hr IV TITRATE MELVIN; Protocol Last Titration: 02/05/22 08:17 Dose: 20 mcg/kg/min, 8.709 mls/hr Documented By: Admin: 02/05/22 03:20 Dose: 10 mcg/kg/min, 4.355 mls/hr Documented By: Titration: 02/05/22 03:20 Dose: 10 mcg/kg/min, 4.355 mls/hr Documented By: Titration: 02/04/22 17:40 Dose: 10 mcg/kg/min, 4.355 mls/hr Documented By: Titration: 02/04/22 12:10 Dose: 15 mcg/kg/min, 6.532 mls/hr Documented By: Admin: 02/04/22 11:24 Dose: 25 mcg/kg/min, 10.886 mls/hr Documented By: Titration: 02/04/22 11:24 Dose: 30 mcg/kg/min, 13.064 mls/hr Documented By: Titration: 02/04/22 10:26 Dose: 30 mcg/kg/min, 13.064 mls/hr Documented By: Titration: 02/04/22 08:20 Dose: 35 mcg/kg/min, 15.241 mls/hr Documented By: Titration: 02/04/22 06:52 Dose: 40 mcg/kg/min, 17.418 mls/hr Documented By: Titration: 02/04/22 06:22 Dose: 30 mcg/kg/min, 13.064 mls/hr Documented By: Titration: 02/04/22 06:02 Dose: 20 mcg/kg/min, 8.709 mls/hr Documented By: Admin: 02/04/22 05:10 Dose: 25 mcg/kg/min, 10.886 mls/hr Documented By: Titration: 02/04/22 05:10 Dose: 30 mcg/kg/min, 13.064 mls/hr Documented By: Admin: 02/03/22 23:14 Dose: 30 mcg/kg/min, 13.064 mls/hr Documented By: Titration: 02/03/22 23:14 Dose: 30 mcg/kg/min, 13.064 mls/hr Documented By: Admin: 02/03/22 15:42 Dose: 30 mcg/kg/min, 13.064 mls/hr Documented By: Titration: 02/03/22 15:42 Dose: 30 mcg/kg/min, 13.064 mls/hr Documented By: Admin: 02/03/22 09:53 Dose: 30 mcg/kg/min, 13.064 mls/hr Documented By: Titration: 02/03/22 09:53 Dose: 30 mcg/kg/min, 13.064 mls/hr Documented By: Titration: 02/03/22 04:59 Dose: 30 mcg/kg/min, 13.064 mls/hr Documented By: Titration: 02/03/22 04:04 Dose: 25 mcg/kg/min, 10.886 mls/hr Documented By: Admin: 02/03/22 02:04 Dose: 30 mcg/kg/min, 13.064 mls/hr Documented By: Titration: 02/03/22 02:04 Dose: 30 mcg/kg/min, 13.064 mls/hr Documented By: Admin: 02/02/22 20:23 Dose: 30 mcg/kg/min, 13.064 mls/hr Documented By: Titration: 02/02/22 20:23 Dose: 30 mcg/kg/min, 13.064 mls/hr Documented By: Titration: 02/02/22 14:07 Dose: 5 mcg/kg/min, 2.177 mls/hr Documented By: Admin: 02/02/22 10:10 Dose: 30 mcg/kg/min, 13.064 mls/hr Documented By: Titration: 02/02/22 10:10 Dose: 30 mcg/kg/min, 13.064 mls/hr Documented By: Admin: 02/02/22 03:20 Dose: 30 mcg/kg/min, 13.064 mls/hr Documented By: Titration: 02/02/22 02:26 Dose: 30 mcg/kg/min, 13.064 mls/hr Documented By: Admin: 02/01/22 18:46 Dose: 30 mcg/kg/min, 13.064 mls/hr Documented By: Titration: 02/01/22 18:46 Dose: 35 mcg/kg/min, 15.241 mls/hr Documented By: Admin: 02/01/22 12:49 Dose: 35 mcg/kg/min, 15.241 mls/hr Documented By: Titration: 02/01/22 12:49 Dose: 35 mcg/kg/min, 15.241 mls/hr Documented By: Titration: 02/01/22 10:26 Dose: 35 mcg/kg/min, 15.241 mls/hr Documented By: Admin: 02/01/22 05:39 Dose: 30 mcg/kg/min, 13.064 mls/hr Documented By: Titration: 02/01/22 05:39 Dose: 30 mcg/kg/min, 13.064 mls/hr Documented By: Titration: 02/01/22 05:00 Dose: 30 mcg/kg/min, 13.064 mls/hr Documented By: Admin: 01/31/22 21:58 Dose: 25 mcg/kg/min, 10.886 mls/hr Documented By: Titration: 01/31/22 21:50 Dose: 25 mcg/kg/min, 10.886 mls/hr Documented By: Titration: 01/31/22 20:00 Dose: 30 mcg/kg/min, 13.064 mls/hr Documented By: Titration: 01/31/22 18:24 Dose: 35 mcg/kg/min, 15.241 mls/hr Documented By: Titration: 01/31/22 14:29 Dose: 20 mcg/kg/min, 8.709 mls/hr Documented By: Titration: 01/31/22 14:01 Dose: 35 mcg/kg/min, 15.241 mls/hr Documented By: Admin: 01/31/22 12:17 Dose: 20 mcg/kg/min, 8.709 mls/hr Documented By: Titration: 01/31/22 12:17 Dose: 20 mcg/kg/min, 8.709 mls/hr Documented By: Admin: 01/31/22 03:55 Dose: 20 mcg/kg/min, 8.709 mls/hr Documented By: JT Fentanyl 1,000 mcg/ Dextrose 250 mls @ 12.701 mls/hr IV TITRATE MELVIN; Protocol Last Admin: 02/05/22 01:55 Dose: 1 mcg/kg/hr, 18.144 mls/hr Documented By: Titration: 02/05/22 01:55 Dose: 1 mcg/kg/hr, 18.144 mls/hr Documented By: Admin: 02/04/22 12:09 Dose: 1 mcg/kg/hr, 18.144 mls/hr Documented By: Titration: 02/04/22 12:09 Dose: 1 mcg/kg/hr, 18.144 mls/hr Documented By: Admin: 02/03/22 23:56 Dose: 1 mcg/kg/hr, 18.144 mls/hr Documented By: Titration: 02/03/22 23:56 Dose: 1 mcg/kg/hr, 18.144 mls/hr Documented By: Admin: 02/03/22 10:18 Dose: 1 mcg/kg/hr, 18.144 mls/hr Documented By: Titration: 02/03/22 10:18 Dose: 1 mcg/kg/hr, 18.144 mls/hr Documented By: Admin: 02/02/22 21:33 Dose: 1 mcg/kg/hr, 18.144 mls/hr Documented By: Titration: 02/02/22 21:33 Dose: 1 mcg/kg/hr, 18.144 mls/hr Documented By: Admin: 02/02/22 08:18 Dose: 1 mcg/kg/hr, 18.144 mls/hr Documented By: Titration: 02/02/22 08:18 Dose: 1 mcg/kg/hr, 18.144 mls/hr Documented By: Admin: 02/01/22 20:42 Dose: 1 mcg/kg/hr, 18.144 mls/hr Documented By: Titration: 02/01/22 20:42 Dose: 1 mcg/kg/hr, 18.144 mls/hr Documented By: Admin: 02/01/22 07:48 Dose: 1 mcg/kg/hr, 18.144 mls/hr Documented By: Titration: 02/01/22 07:48 Dose: 1 mcg/kg/hr, 18.144 mls/hr Documented By: Titration: 02/01/22 05:24 Dose: 1 mcg/kg/hr, 18.144 mls/hr Documented By: Titration: 01/31/22 18:24 Dose: 0.8 mcg/kg/hr, 14.515 mls/hr Documented By: Admin: 01/31/22 17:11 Dose: 0.7 mcg/kg/hr, 12.701 mls/hr Documented By: Titration: 01/31/22 17:11 Dose: 0.7 mcg/kg/hr, 12.701 mls/hr Documented By: Admin: 01/31/22 04:05 Dose: 0.7 mcg/kg/hr, 12.701 mls/hr Documented By: JT NOREPINEPHRINE BITARTRATE/D5W (Levophed) 4 mg in 250 mls @ 30 mls/hr IV TITRATE MELVIN; Protocol Last Titration: 02/01/22 02:48 Dose: 0 mcg/min, 0 mls/hr Documented By: Titration: 01/31/22 19:00 Dose: 2 mcg/min, 7.5 mls/hr Documented By: Titration: 01/31/22 13:38 Dose: 0 mcg/min, 0 mls/hr Documented By: Titration: 01/31/22 12:34 Dose: 2 mcg/min, 7.5 mls/hr Documented By: Admin: 01/31/22 07:58 Dose: 8 mcg/min, 30 mls/hr Documented By: MS Remdesivir 100 mg/ Sodium (Chloride) 250 mls @ 250 mls/hr IV DAILY MELVIN Stop: 02/09/22 09:59 Last Admin: 02/05/22 11:04 Dose: 250 mls/hr Documented By: Infusion: 02/04/22 11:25 Dose: 0 mls/hr Documented By: Admin: 02/04/22 10:05 Dose: 250 mls/hr Documented By: Infusion: 02/04/22 08:20 Dose: 0 mls/hr Documented By: Admin: 02/03/22 09:01 Dose: 250 mls/hr Documented By: Infusion: 02/02/22 14:04 Dose: 0 mls/hr Documented By: Admin: 02/02/22 09:37 Dose: 250 mls/hr Documented By: Infusion: 02/01/22 12:01 Dose: 0 mls/hr Documented By: Admin: 02/01/22 11:01 Dose: 250 mls/hr Documented By: MS dexmedeTOMIDine in 0.9 % NaCL (Precedex) 400 mcg in 100 mls @ 3.655 mls/hr IV TITRATE MELVIN; Protocol Last Admin: 02/05/22 11:04 Dose: 1.5 mcg/kg/hr, 27.413 mls/hr Documented By: Titration: 02/05/22 11:04 Dose: 1 mcg/kg/hr, 18.275 mls/hr Documented By: Admin: 02/05/22 06:07 Dose: 1 mcg/kg/hr, 18.275 mls/hr Documented By: Titration: 02/05/22 06:07 Dose: 1 mcg/kg/hr, 18.275 mls/hr Documented By: Admin: 02/05/22 01:31 Dose: 1 mcg/kg/hr, 18.275 mls/hr Documented By: Titration: 02/05/22 01:31 Dose: 1 mcg/kg/hr, 18.275 mls/hr Documented By: Admin: 02/04/22 20:53 Dose: 1 mcg/kg/hr, 18.275 mls/hr Documented By: Titration: 02/04/22 20:40 Dose: 1 mcg/kg/hr, 18.275 mls/hr Documented By: Admin: 02/04/22 15:11 Dose: 1 mcg/kg/hr, 18.275 mls/hr Documented By: Titration: 02/04/22 15:11 Dose: 1 mcg/kg/hr, 18.275 mls/hr Documented By: Admin: 02/04/22 10:05 Dose: 1 mcg/kg/hr, 18.275 mls/hr Documented By: Titration: 02/04/22 10:05 Dose: 1 mcg/kg/hr, 18.275 mls/hr Documented By: Titration: 02/04/22 08:20 Dose: 1 mcg/kg/hr, 18.275 mls/hr Documented By: Admin: 02/04/22 04:18 Dose: 0.8 mcg/kg/hr, 14.62 mls/hr Documented By: Titration: 02/04/22 04:18 Dose: 0.8 mcg/kg/hr, 14.62 mls/hr Documented By: Admin: 02/03/22 22:30 Dose: 0.8 mcg/kg/hr, 14.62 mls/hr Documented By: Titration: 02/03/22 22:30 Dose: 0.8 mcg/kg/hr, 14.62 mls/hr Documented By: Admin: 02/03/22 15:43 Dose: 0.8 mcg/kg/hr, 14.62 mls/hr Documented By: Titration: 02/03/22 10:24 Dose: 0.8 mcg/kg/hr, 14.62 mls/hr Documented By: Titration: 02/03/22 06:03 Dose: 0.8 mcg/kg/hr, 14.62 mls/hr Documented By: Admin: 02/03/22 04:03 Dose: 1 mcg/kg/hr, 18.275 mls/hr Documented By: Titration: 02/03/22 04:03 Dose: 0.8 mcg/kg/hr, 14.62 mls/hr Documented By: Admin: 02/02/22 22:09 Dose: 0.8 mcg/kg/hr, 14.62 mls/hr Documented By: Titration: 02/02/22 22:09 Dose: 0.8 mcg/kg/hr, 14.62 mls/hr Documented By: Titration: 02/02/22 19:43 Dose: 0.8 mcg/kg/hr, 14.62 mls/hr Documented By: Titration: 02/02/22 14:06 Dose: 0.6 mcg/kg/hr, 10.965 mls/hr Documented By: Admin: 02/02/22 13:20 Dose: 0.2 mcg/kg/hr, 3.655 mls/hr Documented By: GLADIS Ceftriaxone Sodium 2,000 mg/ (Sodium Chloride) 100 mls @ 200 mls/hr IV Q24H [facility] Last Admin: 02/05/22 08:02 Dose: 200 mls/hr Documented By: Infusion: 02/04/22 10:06 Dose: 0 mls/hr Documented By: Admin: 02/04/22 07:52 Dose: 200 mls/hr Documented By: Infusion: 02/04/22 07:47 Dose: 0 mls/hr Documented By: Admin: 02/03/22 08:55 Dose: 200 mls/hr Documented By: Doxycycline Hyclate 100 mg/ (Sodium Chloride) 100 mls @ 100 mls/hr IV Q12H [facility] Last Infusion: 02/05/22 06:07 Dose: 0 mls/hr Documented By: Admin: 02/05/22 03:04 Dose: 100 mls/hr Documented By: Infusion: 02/04/22 20:57 Dose: 0 mls/hr Documented By: Admin: 02/04/22 16:31 Dose: 100 mls/hr Documented By: TIKA Loperamide HCl (Loperamide 2 Mg Capsule) 4 mg PO PRN PRN PRN Reason: Diarrhea Last Admin: 02/03/22 03:51 Dose: 4 mg Documented By: SHANAE Methylprednisolone (Methylprednisolone 40 Mg/Ml Vial) 40 mg IV Q8HR [facility] Last Admin: 02/05/22 05:05 Dose: 40 mg Documented By: Admin: 02/04/22 21:01 Dose: 40 mg Documented By: Admin: 02/04/22 13:54 Dose: 40 mg Documented By: BECKIE Multivitamins (Multivitamin 1 Tablet) 1 tab PO DAILY [facility] Last Admin: 02/05/22 09:03 Dose: 1 tab Documented By: Admin: 02/04/22 07:54 Dose: 1 tab Documented By: Admin: 02/03/22 08:57 Dose: 1 tab Documented By: Admin: 02/02/22 09:37 Dose: 1 tab Documented By: Admin: 02/01/22 09:19 Dose: 1 tab Documented By: Admin: 01/31/22 09:49 Dose: 1 tab Documented By: Naloxone HCl (Naloxone 0.4 Mg/Ml Vial) 0.2 mg IV Q2MIN PRN PRN Reason: Opiate Reversal Nicotine (Nicotine 14 Patch) 14 mg TOP DAILY [facility] Last Admin: 02/05/22 09:04 Dose: 14 mg Documented By: Admin: 02/04/22 07:52 Dose: 14 mg Documented By: Admin: 02/03/22 09:04 Dose: 14 mg Documented By: Admin: 02/02/22 09:37 Dose: 14 mg Documented By: Admin: 02/01/22 09:19 Dose: 14 mg Documented By: Admin: 01/31/22 09:48 Dose: 14 mg Documented By: Ondansetron HCl (Ondansetron 4 Mg/2 Ml Inj) 4 mg IV Q8HR PRN PRN Reason: Nausea And Vomiting Potassium Chloride (Potassium Chloride 20 Meq/15 Ml Udc) 20 meq TUBE BIDWM [facility] Last Admin: 02/05/22 08:03 Dose: 20 meq Documented By: Admin: 02/04/22 16:35 Dose: 20 meq Documented By: TIKA Quetiapine Fumarate (Quetiapine 25 Mg Tablet) 25 mg PO BID [facility] Last Admin: 02/05/22 09:03 Dose: 25 mg Documented By: Admin: 02/04/22 20:48 Dose: 25 mg Documented By: Admin: 02/04/22 10:05 Dose: 25 mg Documented By: BECKIE Venlafaxine HCl (Venlafaxine 37.5 Mg Tablet) 37.5 mg PO BID [facility] Last Admin: 02/05/22 09:03 Dose: 37.5 mg Documented By: Admin: 02/04/22 20:48 Dose: 37.5 mg Documented By: Admin: 02/04/22 07:53 Dose: 37.5 mg Documented By: Admin: 02/03/22 20:58 Dose: 37.5 mg Documented By: Admin: 02/03/22 08:57 Dose: 37.5 mg Documented By: Admin: 02/02/22 21:03 Dose: 37.5 mg Documented By: DL Discontinued Medications Albuterol/Ipratropium (Albuterol/Ipratropium 3 Ml Ampul) 3 ml INH Q1H PRN PRN Reason: Shortness Of Breath Last Admin: 01/30/22 12:19 Dose: 3 ml Documented By: LEVI Budesonide (Budesonide 0.5 Mg/2 Ml Neb) 0.5 mg INH NOW ONE Stop: 02/03/22 09:02 Last Admin: 02/03/22 09:25 Dose: 0.5 mg Documented By: ABDIRAHMAN Chlordiazepoxide HCl (Chlordiazepoxide 25 Mg Capsule) 50 mg PO NOW ONE Stop: 02/03/22 10:26 Last Admin: 02/03/22 11:15 Dose: 50 mg Documented By: Chlordiazepoxide HCl (Chlordiazepoxide 25 Mg Capsule) 50 mg PO TID [facility] Last Admin: 02/04/22 07:53 Dose: 50 mg Documented By: Admin: 02/03/22 20:58 Dose: 50 mg Documented By: SHANAE Chlordiazepoxide HCl (Chlordiazepoxide 25 Mg Capsule) 50 mg PO NOW ONE Stop: 02/04/22 10:01 Last Admin: 02/04/22 10:05 Dose: 50 mg Documented By: BECKIE Dexamethasone (Dexamethasone 10 Mg/Ml Vial) 6 mg IV DAILY [facility] Last Admin: 02/04/22 07:54 Dose: 6 mg Documented By: Admin: 02/03/22 08:56 Dose: 6 mg Documented By: Admin: 02/02/22 09:36 Dose: 6 mg Documented By: Admin: 02/01/22 09:20 Dose: 6 mg Documented By: Admin: 01/31/22 09:49 Dose: 6 mg Documented By: Furosemide (Furosemide 40 Mg/4 Ml Vial) 40 mg IV NOW ONE Stop: 01/31/22 00:21 Last Admin: 01/31/22 02:13 Dose: 40 mg Documented By: ZACHARY Furosemide (Furosemide 40 Mg/4 Ml Vial) 40 mg IV NOW ONE Stop: 02/01/22 20:25 Last Admin: 02/01/22 21:48 Dose: Not Given Documented By: SOY Furosemide (Furosemide 40 Mg/4 Ml Vial) 40 mg IV NOW ONE Stop: 02/01/22 21:46 Last Admin: 02/01/22 21:47 Dose: 40 mg Documented By: SOY Furosemide (Furosemide 40 Mg/4 Ml Vial) 40 mg IV NOW ONE Stop: 02/02/22 22:23 Last Admin: 02/02/22 23:11 Dose: 40 mg Documented By: DL Furosemide (Furosemide 40 Mg/4 Ml Vial) 40 mg IV Q12HR [facility] Heparin Sodium (Porcine) (Heparin 5,000 Unit/Ml Vial) 5,000 unit SUBCUT BID [facility] Last Admin: 01/30/22 23:03 Dose: 5,000 unit Documented By: (2) Piperacillin Sod/Tazobactam (Sod 4.5 gm/ Sodium Chloride) 100 mls @ 200 mls/hr IV NOW ONE Stop: 01/30/22 13:04 Last Infusion: 01/30/22 14:12 Dose: 0 mls/hr Documented By: Admin: 01/30/22 13:22 Dose: 200 mls/hr Documented By: NICOLE Sodium Chloride (Normal Saline 0.9%) 1,000 mls @ 1,000 mls/hr IV BOLUS ONE Stop: 01/30/22 14:52 Last Infusion: 01/31/22 01:31 Dose: 0 mls/hr Documented By: Admin: 01/30/22 14:13 Dose: 1,000 mls/hr Documented By: ALICIA Azithromycin 500 mg/ Dextrose 250 mls @ 250 mls/hr IV Q24H [facility] Stop: 02/03/22 16:16 Last Admin: 02/03/22 15:42 Dose: 250 mls/hr Documented By: Infusion: 02/02/22 17:49 Dose: 0 mls/hr Documented By: Admin: 02/02/22 14:44 Dose: 250 mls/hr Documented By: Infusion: 02/01/22 16:35 Dose: 0 mls/hr Documented By: Admin: 02/01/22 15:35 Dose: 250 mls/hr Documented By: Infusion: 01/31/22 15:45 Dose: 0 mls/hr Documented By: Admin: 01/31/22 14:45 Dose: 250 mls/hr Documented By: Infusion: 01/31/22 01:30 Dose: 0 mls/hr Documented By: Admin: 01/30/22 16:15 Dose: 250 mls/hr Documented By: YOAN Cefepime HCl 1 gm/ Sodium (Chloride) 100 mls @ 200 mls/hr IV Q12H [facility] Last Admin: 01/30/22 15:20 Dose: Not Given Documented By: YOAN Cefepime HCl 1 gm/ Sodium (Chloride) 100 mls @ 200 mls/hr IV Q12H [facility] Last Infusion: 01/31/22 01:31 Dose: 0 mls/hr Documented By: Admin: 01/30/22 18:20 Dose: 200 mls/hr Documented By: YOAN dexmedeTOMIDine in 0.9 % NaCL (Precedex) 400 mcg in 100 mls @ 3.629 mls/hr IV TITRATE [facility]; Protocol Last Admin: 01/31/22 15:19 Dose: 1 mcg/kg/hr, 18.144 mls/hr Documented By: Titration: 01/31/22 15:19 Dose: 1 mcg/kg/hr, 18.144 mls/hr Documented By: Titration: 01/31/22 13:59 Dose: 1 mcg/kg/hr, 18.144 mls/hr Documented By: Admin: 01/31/22 08:12 Dose: 0.6 mcg/kg/hr, 10.886 mls/hr Documented By: Titration: 01/31/22 08:12 Dose: 0 mcg/kg/hr, 0 mls/hr Documented By: Titration: 01/31/22 06:36 Dose: 0 mcg/kg/hr, 0 mls/hr Documented By: Titration: 01/31/22 06:00 Dose: 1 mcg/kg/hr, 18.144 mls/hr Documented By: Titration: 01/31/22 05:25 Dose: 0.8 mcg/kg/hr, 14.515 mls/hr Documented By: Titration: 01/31/22 04:55 Dose: 0.6 mcg/kg/hr, 10.886 mls/hr Documented By: Titration: 01/31/22 03:25 Dose: 0.4 mcg/kg/hr, 7.258 mls/hr Documented By: Admin: 01/31/22 02:53 Dose: 0.2 mcg/kg/hr, 3.629 mls/hr Documented By: JT Cefepime HCl 1 gm/ Sodium (Chloride) 100 mls @ 200 mls/hr IV DAILY [facility] Magnesium Sulfate (Magnesium Sulfate) 2 gm in 50 mls @ 25 mls/hr IV NOW ONE Stop: 01/31/22 10:14 Last Infusion: 01/31/22 11:53 Dose: 0 mls/hr Documented By: Co-signed By: ENA Admin: 01/31/22 09:53 Dose: 25 mls/hr Documented By: Co-signed By: ENA POTASSIUM CHLORIDE IN WATER (Potassium Cl 10 Meq/100 Ml Cyndie) 10 meq in 100 mls @ 100 mls/hr IV Q1H [facility] Stop: 01/31/22 12:59 Last Infusion: 02/01/22 16:38 Dose: 0 mls/hr Documented By: Admin: 01/31/22 12:16 Dose: 100 mls/hr Documented By: Infusion: 01/31/22 12:16 Dose: 100 mls/hr Documented By: Admin: 01/31/22 11:26 Dose: 100 mls/hr Documented By: Infusion: 01/31/22 11:07 Dose: 100 mls/hr Documented By: Admin: 01/31/22 10:07 Dose: 100 mls/hr Documented By: Infusion: 01/31/22 10:07 Dose: 100 mls/hr Documented By: Admin: 01/31/22 09:54 Dose: 100 mls/hr Documented By: Remdesivir 100 mg/ Sodium (Chloride) 250 mls @ 250 mls/hr IV DAILY [facility] Stop: 02/09/22 09:59 Last Admin: 02/01/22 16:36 Dose: Not Given Documented By: MS Cefepime HCl 1 gm/ Sodium (Chloride) 100 mls @ 200 mls/hr IV Q12H [facility] Last Admin: 01/31/22 13:14 Dose: Not Given Documented By: MS Thiamine HCl 500 mg/ Sodium (Chloride) 105 mls @ 420 mls/hr IV TID [facility] Stop: 02/02/22 09:01 Last Admin: 02/02/22 11:09 Dose: 420 mls/hr Documented By: Infusion: 02/01/22 23:36 Dose: 0 mls/hr Documented By: Admin: 02/01/22 21:50 Dose: 420 mls/hr Documented By: Infusion: 02/01/22 15:51 Dose: 0 mls/hr Documented By: Admin: 02/01/22 15:36 Dose: 420 mls/hr Documented By: Infusion: 02/01/22 10:55 Dose: 0 mls/hr Documented By: Admin: 02/01/22 09:19 Dose: 420 mls/hr Documented By: Infusion: 01/31/22 21:05 Dose: 0 mls/hr Documented By: Admin: 01/31/22 20:08 Dose: 420 mls/hr Documented By: Infusion: 01/31/22 15:02 Dose: 0 mls/hr Documented By: Admin: 01/31/22 14:47 Dose: 420 mls/hr Documented By: MS Vancomycin HCl (Vancomycin) 1,000 mg in 200 mls @ 200 mls/hr IV Q18H [facility] Remdesivir 200 mg/ Sodium (Chloride) 250 mls @ 250 mls/hr IV NOW ONE Stop: 01/31/22 13:59 Last Admin: 01/31/22 12:20 Dose: 250 mls/hr Documented By: Vancomycin HCl (Vancomycin) 1,000 mg in 200 mls @ 200 mls/hr IV Q18H [facility] Last Infusion: 02/02/22 03:13 Dose: 0 mls/hr Documented By: Admin: 02/02/22 01:54 Dose: 200 mls/hr Documented By: Infusion: 02/01/22 09:09 Dose: 0 mls/hr Documented By: Admin: 02/01/22 08:09 Dose: 200 mls/hr Documented By: Infusion: 01/31/22 15:44 Dose: 0 mls/hr Documented By: Admin: 01/31/22 14:44 Dose: 200 mls/hr Documented By: Cefepime HCl 1 gm/ Sodium (Chloride) 100 mls @ 200 mls/hr IV Q12H [facility] Last Infusion: 02/02/22 04:24 Dose: 0 mls/hr Documented By: Admin: 02/02/22 03:13 Dose: 200 mls/hr Documented By: Infusion: 02/01/22 16:18 Dose: 0 mls/hr Documented By: Admin: 02/01/22 15:48 Dose: 200 mls/hr Documented By: Infusion: 02/01/22 05:40 Dose: 0 mls/hr Documented By: Admin: 02/01/22 03:07 Dose: 200 mls/hr Documented By: Infusion: 01/31/22 16:26 Dose: 0 mls/hr Documented By: Admin: 01/31/22 15:56 Dose: 200 mls/hr Documented By: Midazolam HCl 50 mg/ Dextrose 250 mls @ 25 mls/hr IV TITRATE [facility]; Protocol Last Infusion: 02/02/22 05:06 Dose: 0 mg/hr, 0 mls/hr Documented By: Admin: 02/02/22 04:16 Dose: 6 mg/hr, 30 mls/hr Documented By: Infusion: 02/02/22 04:16 Dose: 6 mg/hr, 30 mls/hr Documented By: Admin: 02/01/22 20:41 Dose: 6 mg/hr, 30 mls/hr Documented By: Infusion: 02/01/22 19:21 Dose: 6 mg/hr, 30 mls/hr Documented By: Admin: 02/01/22 11:01 Dose: 6 mg/hr, 30 mls/hr Documented By: Infusion: 02/01/22 11:01 Dose: 6 mg/hr, 30 mls/hr Documented By: Admin: 02/01/22 05:45 Dose: 6 mg/hr, 30 mls/hr Documented By: Infusion: 02/01/22 05:45 Dose: 6 mg/hr, 30 mls/hr Documented By: Infusion: 02/01/22 05:00 Dose: 6 mg/hr, 30 mls/hr Documented By: Admin: 01/31/22 19:57 Dose: 5 mg/hr, 25 mls/hr Documented By: SOY POTASSIUM CHLORIDE IN WATER (Potassium Cl 10 Meq/100 Ml Cyndie) 10 meq in 100 mls @ 100 mls/hr IV Q1H [facility] Stop: 02/01/22 10:14 Last Infusion: 02/01/22 16:38 Dose: 0 mls/hr Documented By: Admin: 02/01/22 09:31 Dose: 100 mls/hr Documented By: Infusion: 02/01/22 09:31 Dose: 100 mls/hr Documented By: Admin: 02/01/22 09:04 Dose: 100 mls/hr Documented By: Infusion: 02/01/22 09:04 Dose: 100 mls/hr Documented By: Admin: 02/01/22 08:07 Dose: 100 mls/hr Documented By: Infusion: 02/01/22 07:52 Dose: 100 mls/hr Documented By: Admin: 02/01/22 06:52 Dose: 100 mls/hr Documented By: SOY Magnesium Sulfate (Magnesium Sulfate) 2 gm in 50 mls @ 25 mls/hr IV NOW ONE Stop: 02/02/22 07:28 Last Admin: 02/02/22 05:55 Dose: 25 mls/hr Documented By: SOY Co-signed By: ANISH POTASSIUM CHLORIDE IN WATER (Potassium Cl 10 Meq/100 Ml Cyndie) 10 meq in 100 mls @ 100 mls/hr IV Q1H [facility] Stop: 02/02/22 09:29 Last Admin: 02/02/22 10:19 Dose: 100 mls/hr Documented By: Infusion: 02/02/22 10:19 Dose: 100 mls/hr Documented By: Admin: 02/02/22 09:36 Dose: 100 mls/hr Documented By: Infusion: 02/02/22 09:16 Dose: 100 mls/hr Documented By: Admin: 02/02/22 08:16 Dose: 100 mls/hr Documented By: Infusion: 02/02/22 06:54 Dose: 100 mls/hr Documented By: Admin: 02/02/22 05:54 Dose: 100 mls/hr Documented By: SOY Ceftriaxone Sodium 1,000 mg/ (Sodium Chloride) 100 mls @ 200 mls/hr IV Q24H [facility] Last Infusion: 02/02/22 14:44 Dose: 0 mls/hr Documented By: Admin: 02/02/22 11:17 Dose: 200 mls/hr Documented By: GLADIS POTASSIUM CHLORIDE IN WATER (Potassium Cl 10 Meq/100 Ml Cyndie) 10 meq in 100 mls @ 100 mls/hr IV Q1H [facility] Stop: 02/02/22 14:59 Last Admin: 02/02/22 14:42 Dose: 100 mls/hr Documented By: Infusion: 02/02/22 14:02 Dose: 100 mls/hr Documented By: Admin: 02/02/22 13:02 Dose: 100 mls/hr Documented By: Infusion: 02/02/22 13:02 Dose: 100 mls/hr Documented By: Admin: 02/02/22 12:19 Dose: 100 mls/hr Documented By: Infusion: 02/02/22 12:17 Dose: 100 mls/hr Documented By: Admin: 02/02/22 11:17 Dose: 100 mls/hr Documented By: GLADIS Loperamide HCl (Loperamide 2 Mg/15 Ml Udc) 4 mg PO Q4H PRN PRN Reason: Diarrhea Lorazepam (Lorazepam 0.5 Mg Tablet) 0.5 mg PO NOW ONE Stop: 01/30/22 19:27 Last Admin: 01/30/22 19:53 Dose: 0.5 mg Documented By: (2) Lorazepam (Lorazepam 1 Mg Tablet) 1 mg PO Q6HR PRN PRN Reason: Anxiety Last Admin: 01/30/22 23:54 Dose: 1 mg Documented By: MS(2) Lorazepam (Lorazepam 1 Mg Tablet) 0 mg PO [id number] PRN; Protocol PRN Reason: Alcohol Withdrawal Methylprednisolone (Methylprednisolone 125 Mg/2 Ml Vial) 125 mg IV NOW ONE Stop: 01/30/22 13:05 Last Admin: 01/30/22 13:22 Dose: 125 mg Documented By: NICOLE Metoprolol Tartrate (Metoprolol Ir 50 Mg Tablet) 50 mg PO BID [facility] Last Admin: 01/31/22 09:11 Dose: Not Given Documented By: Admin: 01/30/22 23:03 Dose: 50 mg Documented By: MS(2) Midazolam HCl (Midazolam 2 Mg/2 Ml Vial) 1 mg IV Q1H PRN PRN Reason: Agitation Naloxone HCl (Naloxone 0.4 Mg/Ml Vial) 0.2 mg IV Q2MIN PRN PRN Reason: Opiate Reversal Phenobarbital (Phenobarbital 65 Mg/Ml Vial) 260 mg IV NOW ONE Stop: 01/31/22 18:47 Last Admin: 01/31/22 19:57 Dose: 260 mg Documented By: SOY Phenobarbital (Phenobarbital 65 Mg/Ml Vial) 260 mg IV NOW ONE Stop: 02/01/22 10:40 Last Admin: 02/01/22 11:02 Dose: 260 mg Documented By: Phenobarbital (Phenobarbital 65 Mg/Ml Vial) 260 mg IV Q6H [facility] Stop: 02/02/22 04:31 Last Admin: 02/02/22 04:18 Dose: 260 mg Documented By: Admin: 02/01/22 21:49 Dose: 260 mg Documented By: Admin: 02/01/22 18:19 Dose: 260 mg Documented By: Potassium Chloride (Potassium Chloride 20 Meq/15 Ml Udc) 40 meq PO NOW ONE Stop: 02/02/22 20:32 Last Admin: 02/02/22 21:03 Dose: 40 meq Documented By: DL Potassium Chloride (Potassium Chloride 20 Meq/15 Ml Udc) 40 meq TUBE NOW ONE Stop: 02/02/22 22:23 Last Admin: 02/02/22 23:11 Dose: 40 meq Documented By: SHANAE Thiamine HCl (Thiamine 100 Mg Tablet) 100 mg PO DAILY [facility] Stop: 02/03/22 09:01 Last Admin: 01/31/22 13:14 Dose: Not Given Documented By: MS Vancomycin HCl (Vancomycin Per Pharmacy) 1 request MISC NOW ONE Stop: 01/31/22 09:28 Last Admin: 01/31/22 11:26 Dose: 1 request Documented By: MS Venlafaxine HCl (Venlafaxine Er 37.5 Mg Cap) 37.5 mg PO BID [facility] Last Admin: 02/02/22 10:19 Dose: 37.5 mg Documented By: Admin: 02/01/22 21:50 Dose: 37.5 mg Documented By: Admin: 02/01/22 09:19 Dose: 37.5 mg Documented By: Admin: 01/31/22 20:07 Dose: 37.5 mg Documented By: Admin: 01/31/22 09:49 Dose: 37.5 mg Documented By: Consultations Consultation #1: Dr. Ernst, hospitalist accepts for admission. He is in the department at 2:38 p.m. seeing the patient. Had accepted about an hour before this. Time: 14:38 Vital Signs Vital signs: Vital Signs - 8 hr 01/30/22 12:10 01/30/22 12:37 01/30/22 12:09 Temperature 98.4 F Pulse Rate 105 H 100 H Respiratory Rate 32 H 22 Blood Pressure 132/69 132/69 Pulse Oximetry 80 L 94 Oxygen Delivery Method Room Air Nasal Cannula Oxygen Flow Rate 2 01/30/22 12:09 01/30/22 12:30 01/30/22 12:30 Temperature Pulse Rate 105 H 100 H Respiratory Rate 36 H Blood Pressure 114/74 Pulse Oximetry 95 Oxygen Delivery Method Oxygen Flow Rate 01/30/22 13:00 01/30/22 13:00 01/30/22 13:30 Temperature Pulse Rate 99 H 98 H Respiratory Rate 26 H 44 H Blood Pressure 124/68 Pulse Oximetry 96 94 Oxygen Delivery Method Nasal Cannula Oxygen Flow Rate 2.5 <Lexie Caldwell MD - Last Filed: 01/31/22 22:38> Orders Ordered: Acetaminophen (Acetaminophen 325 Mg Tablet) 650 mg PO Q6H PRN PRN Reason: Fever/Mild Pain (1-3) Albuterol (Albuterol 2.5 Mg/3 Ml Neb (Adult)) 2.5 mg INH [id number] PRN PRN Reason: Shortness Of Breath Last Admin: 02/05/22 01:38 Dose: 2.5 mg Documented By: Admin: 02/03/22 13:37 Dose: 2.5 mg Documented By: Admin: 02/03/22 03:10 Dose: 2.5 mg Documented By: Admin: 02/02/22 17:20 Dose: 2.5 mg Documented By: Admin: 02/02/22 13:33 Dose: 2.5 mg Documented By: Admin: 02/01/22 17:07 Dose: 2.5 mg Documented By: Admin: 01/31/22 01:15 Dose: 2.5 mg Documented By: Admin: 01/30/22 16:51 Dose: 2.5 mg Documented By: LEVI Albuterol/Ipratropium (Albuterol/Ipratropium 3 Ml Ampul) 3 ml INH [id number] [facility] Last Admin: 02/05/22 10:32 Dose: 3 ml Documented By: Admin: 02/05/22 10:29 Dose: Not Given Documented By: Admin: 02/04/22 23:59 Dose: 3 ml Documented By: Admin: 02/04/22 20:58 Dose: 3 ml Documented By: Admin: 02/04/22 20:58 Dose: 3 ml Documented By: Admin: 02/04/22 13:11 Dose: Not Given Documented By: Admin: 02/04/22 07:41 Dose: 3 ml Documented By: Admin: 02/03/22 22:24 Dose: 3 ml Documented By: Admin: 02/03/22 19:39 Dose: 3 ml Documented By: Admin: 02/03/22 15:17 Dose: 3 ml Documented By: Admin: 02/03/22 11:39 Dose: 3 ml Documented By: Admin: 02/03/22 07:23 Dose: 3 ml Documented By: Admin: 02/02/22 22:28 Dose: 3 ml Documented By: Admin: 02/02/22 22:28 Dose: Not Given Documented By: Admin: 02/02/22 15:17 Dose: 3 ml Documented By: Admin: 02/02/22 10:16 Dose: 3 ml Documented By: Admin: 02/02/22 07:27 Dose: 3 ml Documented By: Admin: 02/02/22 07:27 Dose: Not Given Documented By: Admin: 02/01/22 21:32 Dose: 3 ml Documented By: Admin: 02/01/22 16:24 Dose: 3 ml Documented By: Admin: 02/01/22 10:39 Dose: 3 ml Documented By: Admin: 02/01/22 07:56 Dose: 3 ml Documented By: Admin: 01/31/22 22:24 Dose: 3 ml Documented By: Admin: 01/31/22 17:36 Dose: 3 ml Documented By: Admin: 01/31/22 17:24 Dose: Not Given Documented By: Admin: 01/31/22 12:22 Dose: 3 ml Documented By: Admin: 01/31/22 12:22 Dose: Not Given Documented By: Admin: 01/31/22 01:12 Dose: Not Given Documented By: Admin: 01/31/22 01:11 Dose: 3 ml Documented By: Budesonide (Budesonide 0.5 Mg/2 Ml Neb) 0.5 mg INH RTBID [facility] Admin: 02/05/22 10:32 Dose: 0.5 mg Documented By: Admin: 02/04/22 20:58 Dose: 0.5 mg Documented By: Admin: 02/04/22 07:41 Dose: 0.5 mg Documented By: Admin: 02/03/22 19:39 Dose: 0.5 mg Documented By: SAT Chlordiazepoxide HCl (Chlordiazepoxide 25 Mg Capsule) 100 mg PO TID [facility] Last Admin: 02/05/22 09:25 Dose: 100 mg Documented By: Admin: 02/04/22 20:48 Dose: 100 mg Documented By: Admin: 02/04/22 16:30 Dose: 100 mg Documented By: TIKA Chlorhexidine Gluconate (Chlorhexidine Gluconate 15 Ml Cup) 15 ml PO Q6H [facility] Last Admin: 02/05/22 11:04 Dose: 15 ml Documented By: Admin: 02/05/22 05:05 Dose: 15 ml Documented By: Admin: 02/04/22 21:03 Dose: 15 ml Documented By: Admin: 02/04/22 16:31 Dose: 15 ml Documented By: Admin: 02/04/22 10:06 Dose: 15 ml Documented By: Admin: 02/04/22 04:07 Dose: 15 ml Documented By: Admin: 02/04/22 00:19 Dose: Not Given Documented By: Admin: 02/03/22 16:34 Dose: 15 ml Documented By: Admin: 02/03/22 11:15 Dose: 15 ml Documented By: Admin: 02/03/22 03:51 Dose: 15 ml Documented By: Admin: 02/02/22 21:03 Dose: 15 ml Documented By: Admin: 02/02/22 16:06 Dose: 15 ml Documented By: GLADIS Famotidine (Famotidine 20 Mg/2 Ml Vial) 20 mg IV BID [facility] Last Admin: 02/05/22 09:03 Dose: 20 mg Documented By: Admin: 02/04/22 20:48 Dose: 20 mg Documented By: Admin: 02/04/22 07:54 Dose: 20 mg Documented By: Admin: 02/03/22 20:58 Dose: 20 mg Documented By: Admin: 02/03/22 08:56 Dose: 20 mg Documented By: Admin: 02/02/22 21:03 Dose: 20 mg Documented By: Admin: 02/02/22 09:36 Dose: 20 mg Documented By: Admin: 02/01/22 21:00 Dose: 20 mg Documented By: Admin: 02/01/22 11:02 Dose: 20 mg Documented By: Folic Acid (Folic Acid 1 Mg Tablet) 1 mg PO DAILY [facility] Last Admin: 02/05/22 09:03 Dose: 1 mg Documented By: Admin: 02/04/22 07:53 Dose: 1 mg Documented By: Admin: 02/03/22 08:57 Dose: 1 mg Documented By: Admin: 02/02/22 09:37 Dose: 1 mg Documented By: Admin: 02/01/22 09:19 Dose: 1 mg Documented By: Admin: 01/31/22 09:48 Dose: 1 mg Documented By: Furosemide (Furosemide 40 Mg/4 Ml Vial) 40 mg IV Q12HR [facility] Last Admin: 02/05/22 11:04 Dose: 40 mg Documented By: Admin: 02/05/22 00:15 Dose: 40 mg Documented By: Admin: 02/04/22 16:53 Dose: 40 mg Documented By: TIKA Heparin Sodium (Porcine) (Heparin 5,000 Unit/Ml Vial) 5,000 unit SUBCUT Q8HR [facility] Last Admin: 02/05/22 05:05 Dose: 5,000 unit Documented By: Admin: 02/04/22 21:01 Dose: 5,000 unit Documented By: Admin: 02/04/22 13:54 Dose: 5,000 unit Documented By: Admin: 02/04/22 06:01 Dose: 5,000 unit Documented By: Admin: 02/03/22 20:58 Dose: 5,000 unit Documented By: Admin: 02/03/22 15:41 Dose: 5,000 unit Documented By: Admin: 02/03/22 06:08 Dose: 5,000 unit Documented By: Admin: 02/02/22 21:03 Dose: 5,000 unit Documented By: Admin: 02/02/22 13:20 Dose: 5,000 unit Documented By: Admin: 02/02/22 05:13 Dose: 5,000 unit Documented By: Admin: 02/01/22 21:51 Dose: 5,000 unit Documented By: Admin: 02/01/22 15:35 Dose: 5,000 unit Documented By: Admin: 02/01/22 05:21 Dose: 5,000 unit Documented By: Admin: 01/31/22 21:05 Dose: 5,000 unit Documented By: Admin: 01/31/22 14:44 Dose: 5,000 unit Documented By: Admin: 01/31/22 05:44 Dose: 5,000 unit Documented By: AMARIS Heparin Sodium (Porcine) (Heparin Flush (Cl/Picc/Mid-Line) 50 Unit/5 Ml Syringe) 50 unit IV BID [facility] Last Admin: 02/05/22 09:04 Dose: 50 unit Documented By: Admin: 02/04/22 20:48 Dose: 50 unit Documented By: Admin: 02/04/22 07:54 Dose: 50 unit Documented By: Admin: 02/03/22 20:58 Dose: 50 unit Documented By: Admin: 02/03/22 09:04 Dose: 50 unit Documented By: Admin: 02/02/22 21:04 Dose: Not Given Documented By: Admin: 02/02/22 10:19 Dose: 50 unit Documented By: Admin: 02/02/22 01:53 Dose: 50 unit Documented By: SOY Propofol (Propofol) 1,000 mg in 100 mls @ 2.177 mls/hr IV TITRATE MELVIN; Protocol Last Titration: 02/05/22 08:17 Dose: 20 mcg/kg/min, 8.709 mls/hr Documented By: Admin: 02/05/22 03:20 Dose: 10 mcg/kg/min, 4.355 mls/hr Documented By: Titration: 02/05/22 03:20 Dose: 10 mcg/kg/min, 4.355 mls/hr Documented By: Titration: 02/04/22 17:40 Dose: 10 mcg/kg/min, 4.355 mls/hr Documented By: Titration: 02/04/22 12:10 Dose: 15 mcg/kg/min, 6.532 mls/hr Documented By: Admin: 02/04/22 11:24 Dose: 25 mcg/kg/min, 10.886 mls/hr Documented By: Titration: 02/04/22 11:24 Dose: 30 mcg/kg/min, 13.064 mls/hr Documented By: Titration: 02/04/22 10:26 Dose: 30 mcg/kg/min, 13.064 mls/hr Documented By: Titration: 02/04/22 08:20 Dose: 35 mcg/kg/min, 15.241 mls/hr Documented By: Titration: 02/04/22 06:52 Dose: 40 mcg/kg/min, 17.418 mls/hr Documented By: Titration: 02/04/22 06:22 Dose: 30 mcg/kg/min, 13.064 mls/hr Documented By: Titration: 02/04/22 06:02 Dose: 20 mcg/kg/min, 8.709 mls/hr Documented By: Admin: 02/04/22 05:10 Dose: 25 mcg/kg/min, 10.886 mls/hr Documented By: Titration: 02/04/22 05:10 Dose: 30 mcg/kg/min, 13.064 mls/hr Documented By: Admin: 02/03/22 23:14 Dose: 30 mcg/kg/min, 13.064 mls/hr Documented By: Titration: 02/03/22 23:14 Dose: 30 mcg/kg/min, 13.064 mls/hr Documented By: Admin: 02/03/22 15:42 Dose: 30 mcg/kg/min, 13.064 mls/hr Documented By: Titration: 02/03/22 15:42 Dose: 30 mcg/kg/min, 13.064 mls/hr Documented By: Admin: 02/03/22 09:53 Dose: 30 mcg/kg/min, 13.064 mls/hr Documented By: Titration: 02/03/22 09:53 Dose: 30 mcg/kg/min, 13.064 mls/hr Documented By: Titration: 02/03/22 04:59 Dose: 30 mcg/kg/min, 13.064 mls/hr Documented By: Titration: 02/03/22 04:04 Dose: 25 mcg/kg/min, 10.886 mls/hr Documented By: Admin: 02/03/22 02:04 Dose: 30 mcg/kg/min, 13.064 mls/hr Documented By: Titration: 02/03/22 02:04 Dose: 30 mcg/kg/min, 13.064 mls/hr Documented By: Admin: 02/02/22 20:23 Dose: 30 mcg/kg/min, 13.064 mls/hr Documented By: Titration: 02/02/22 20:23 Dose: 30 mcg/kg/min, 13.064 mls/hr Documented By: Titration: 02/02/22 14:07 Dose: 5 mcg/kg/min, 2.177 mls/hr Documented By: Admin: 02/02/22 10:10 Dose: 30 mcg/kg/min, 13.064 mls/hr Documented By: Titration: 02/02/22 10:10 Dose: 30 mcg/kg/min, 13.064 mls/hr Documented By: Admin: 02/02/22 03:20 Dose: 30 mcg/kg/min, 13.064 mls/hr Documented By: Titration: 02/02/22 02:26 Dose: 30 mcg/kg/min, 13.064 mls/hr Documented By: Admin: 02/01/22 18:46 Dose: 30 mcg/kg/min, 13.064 mls/hr Documented By: Titration: 02/01/22 18:46 Dose: 35 mcg/kg/min, 15.241 mls/hr Documented By: Admin: 02/01/22 12:49 Dose: 35 mcg/kg/min, 15.241 mls/hr Documented By: Titration: 02/01/22 12:49 Dose: 35 mcg/kg/min, 15.241 mls/hr Documented By: Titration: 02/01/22 10:26 Dose: 35 mcg/kg/min, 15.241 mls/hr Documented By: Admin: 02/01/22 05:39 Dose: 30 mcg/kg/min, 13.064 mls/hr Documented By: Titration: 02/01/22 05:39 Dose: 30 mcg/kg/min, 13.064 mls/hr Documented By: Titration: 02/01/22 05:00 Dose: 30 mcg/kg/min, 13.064 mls/hr Documented By: Admin: 01/31/22 21:58 Dose: 25 mcg/kg/min, 10.886 mls/hr Documented By: Titration: 01/31/22 21:50 Dose: 25 mcg/kg/min, 10.886 mls/hr Documented By: Titration: 01/31/22 20:00 Dose: 30 mcg/kg/min, 13.064 mls/hr Documented By: Titration: 01/31/22 18:24 Dose: 35 mcg/kg/min, 15.241 mls/hr Documented By: Titration: 01/31/22 14:29 Dose: 20 mcg/kg/min, 8.709 mls/hr Documented By: Titration: 01/31/22 14:01 Dose: 35 mcg/kg/min, 15.241 mls/hr Documented By: Admin: 01/31/22 12:17 Dose: 20 mcg/kg/min, 8.709 mls/hr Documented By: Titration: 01/31/22 12:17 Dose: 20 mcg/kg/min, 8.709 mls/hr Documented By: Admin: 01/31/22 03:55 Dose: 20 mcg/kg/min, 8.709 mls/hr Documented By: ZACHARY Fentanyl 1,000 mcg/ Dextrose 250 mls @ 12.701 mls/hr IV TITRATE MELVIN; Protocol Last Admin: 02/05/22 01:55 Dose: 1 mcg/kg/hr, 18.144 mls/hr Documented By: Titration: 02/05/22 01:55 Dose: 1 mcg/kg/hr, 18.144 mls/hr Documented By: Admin: 02/04/22 12:09 Dose: 1 mcg/kg/hr, 18.144 mls/hr Documented By: Titration: 02/04/22 12:09 Dose: 1 mcg/kg/hr, 18.144 mls/hr Documented By: Admin: 02/03/22 23:56 Dose: 1 mcg/kg/hr, 18.144 mls/hr Documented By: Titration: 02/03/22 23:56 Dose: 1 mcg/kg/hr, 18.144 mls/hr Documented By: Admin: 02/03/22 10:18 Dose: 1 mcg/kg/hr, 18.144 mls/hr Documented By: Titration: 02/03/22 10:18 Dose: 1 mcg/kg/hr, 18.144 mls/hr Documented By: Admin: 02/02/22 21:33 Dose: 1 mcg/kg/hr, 18.144 mls/hr Documented By: Titration: 02/02/22 21:33 Dose: 1 mcg/kg/hr, 18.144 mls/hr Documented By: Admin: 02/02/22 08:18 Dose: 1 mcg/kg/hr, 18.144 mls/hr Documented By: Titration: 02/02/22 08:18 Dose: 1 mcg/kg/hr, 18.144 mls/hr Documented By: Admin: 02/01/22 20:42 Dose: 1 mcg/kg/hr, 18.144 mls/hr Documented By: Titration: 02/01/22 20:42 Dose: 1 mcg/kg/hr, 18.144 mls/hr Documented By: Admin: 02/01/22 07:48 Dose: 1 mcg/kg/hr, 18.144 mls/hr Documented By: Titration: 02/01/22 07:48 Dose: 1 mcg/kg/hr, 18.144 mls/hr Documented By: Titration: 02/01/22 05:24 Dose: 1 mcg/kg/hr, 18.144 mls/hr Documented By: Titration: 01/31/22 18:24 Dose: 0.8 mcg/kg/hr, 14.515 mls/hr Documented By: Admin: 01/31/22 17:11 Dose: 0.7 mcg/kg/hr, 12.701 mls/hr Documented By: Titration: 01/31/22 17:11 Dose: 0.7 mcg/kg/hr, 12.701 mls/hr Documented By: Admin: 01/31/22 04:05 Dose: 0.7 mcg/kg/hr, 12.701 mls/hr Documented By: JT NOREPINEPHRINE BITARTRATE/D5W (Levophed) 4 mg in 250 mls @ 30 mls/hr IV TITRATE MELVIN; Protocol Last Titration: 02/01/22 02:48 Dose: 0 mcg/min, 0 mls/hr Documented By: Titration: 01/31/22 19:00 Dose: 2 mcg/min, 7.5 mls/hr Documented By: Titration: 01/31/22 13:38 Dose: 0 mcg/min, 0 mls/hr Documented By: Titration: 01/31/22 12:34 Dose: 2 mcg/min, 7.5 mls/hr Documented By: Admin: 01/31/22 07:58 Dose: 8 mcg/min, 30 mls/hr Documented By: Remdesivir 100 mg/ Sodium (Chloride) 250 mls @ 250 mls/hr IV DAILY MELVIN Stop: 02/09/22 09:59 Last Admin: 02/05/22 11:04 Dose: 250 mls/hr Documented By: Infusion: 02/04/22 11:25 Dose: 0 mls/hr Documented By: Admin: 02/04/22 10:05 Dose: 250 mls/hr Documented By: Infusion: 02/04/22 08:20 Dose: 0 mls/hr Documented By: Admin: 02/03/22 09:01 Dose: 250 mls/hr Documented By: Infusion: 02/02/22 14:04 Dose: 0 mls/hr Documented By: Admin: 02/02/22 09:37 Dose: 250 mls/hr Documented By: Infusion: 02/01/22 12:01 Dose: 0 mls/hr Documented By: Admin: 02/01/22 11:01 Dose: 250 mls/hr Documented By: dexmedeTOMIDine in 0.9 % NaCL (Precedex) 400 mcg in 100 mls @ 3.655 mls/hr IV TITRATE MELVIN; Protocol Last Admin: 02/05/22 11:04 Dose: 1.5 mcg/kg/hr, 27.413 mls/hr Documented By: Titration: 02/05/22 11:04 Dose: 1 mcg/kg/hr, 18.275 mls/hr Documented By: Admin: 02/05/22 06:07 Dose: 1 mcg/kg/hr, 18.275 mls/hr Documented By: Titration: 02/05/22 06:07 Dose: 1 mcg/kg/hr, 18.275 mls/hr Documented By: Admin: 02/05/22 01:31 Dose: 1 mcg/kg/hr, 18.275 mls/hr Documented By: Titration: 02/05/22 01:31 Dose: 1 mcg/kg/hr, 18.275 mls/hr Documented By: Admin: 02/04/22 20:53 Dose: 1 mcg/kg/hr, 18.275 mls/hr Documented By: Titration: 02/04/22 20:40 Dose: 1 mcg/kg/hr, 18.275 mls/hr Documented By: Admin: 02/04/22 15:11 Dose: 1 mcg/kg/hr, 18.275 mls/hr Documented By: Titration: 02/04/22 15:11 Dose: 1 mcg/kg/hr, 18.275 mls/hr Documented By: Admin: 02/04/22 10:05 Dose: 1 mcg/kg/hr, 18.275 mls/hr Documented By: Titration: 02/04/22 10:05 Dose: 1 mcg/kg/hr, 18.275 mls/hr Documented By: Titration: 02/04/22 08:20 Dose: 1 mcg/kg/hr, 18.275 mls/hr Documented By: Admin: 02/04/22 04:18 Dose: 0.8 mcg/kg/hr, 14.62 mls/hr Documented By: Titration: 02/04/22 04:18 Dose: 0.8 mcg/kg/hr, 14.62 mls/hr Documented By: Admin: 02/03/22 22:30 Dose: 0.8 mcg/kg/hr, 14.62 mls/hr Documented By: Titration: 02/03/22 22:30 Dose: 0.8 mcg/kg/hr, 14.62 mls/hr Documented By: Admin: 02/03/22 15:43 Dose: 0.8 mcg/kg/hr, 14.62 mls/hr Documented By: Titration: 02/03/22 10:24 Dose: 0.8 mcg/kg/hr, 14.62 mls/hr Documented By: Titration: 02/03/22 06:03 Dose: 0.8 mcg/kg/hr, 14.62 mls/hr Documented By: Admin: 02/03/22 04:03 Dose: 1 mcg/kg/hr, 18.275 mls/hr Documented By: Titration: 02/03/22 04:03 Dose: 0.8 mcg/kg/hr, 14.62 mls/hr Documented By: Admin: 02/02/22 22:09 Dose: 0.8 mcg/kg/hr, 14.62 mls/hr Documented By: Titration: 02/02/22 22:09 Dose: 0.8 mcg/kg/hr, 14.62 mls/hr Documented By: Titration: 02/02/22 19:43 Dose: 0.8 mcg/kg/hr, 14.62 mls/hr Documented By: Titration: 02/02/22 14:06 Dose: 0.6 mcg/kg/hr, 10.965 mls/hr Documented By: Admin: 02/02/22 13:20 Dose: 0.2 mcg/kg/hr, 3.655 mls/hr Documented By: CW Ceftriaxone Sodium 2,000 mg/ (Sodium Chloride) 100 mls @ 200 mls/hr IV Q24H [facility]ELVIN Last Admin: 02/05/22 08:02 Dose: 200 mls/hr Documented By: Infusion: 02/04/22 10:06 Dose: 0 mls/hr Documented By: Admin: 02/04/22 07:52 Dose: 200 mls/hr Documented By: Infusion: 02/04/22 07:47 Dose: 0 mls/hr Documented By: Admin: 02/03/22 08:55 Dose: 200 mls/hr Documented By: MS Doxycycline Hyclate 100 mg/ (Sodium Chloride) 100 mls @ 100 mls/hr IV Q12H MELVIN Last Infusion: 02/05/22 06:07 Dose: 0 mls/hr Documented By: Admin: 02/05/22 03:04 Dose: 100 mls/hr Documented By: Infusion: 02/04/22 20:57 Dose: 0 mls/hr Documented By: Admin: 02/04/22 16:31 Dose: 100 mls/hr Documented By: TIKA Loperamide HCl (Loperamide 2 Mg Capsule) 4 mg PO PRN PRN PRN Reason: Diarrhea Last Admin: 02/03/22 03:51 Dose: 4 mg Documented By: SHANAE Methylprednisolone (Methylprednisolone 40 Mg/Ml Vial) 40 mg IV Q8HR [facility] Last Admin: 02/05/22 05:05 Dose: 40 mg Documented By: Admin: 02/04/22 21:01 Dose: 40 mg Documented By: Admin: 02/04/22 13:54 Dose: 40 mg Documented By: BECKIE Multivitamins (Multivitamin 1 Tablet) 1 tab PO DAILY [facility] Last Admin: 02/05/22 09:03 Dose: 1 tab Documented By: Admin: 02/04/22 07:54 Dose: 1 tab Documented By: Admin: 02/03/22 08:57 Dose: 1 tab Documented By: Admin: 02/02/22 09:37 Dose: 1 tab Documented By: Admin: 02/01/22 09:19 Dose: 1 tab Documented By: Admin: 01/31/22 09:49 Dose: 1 tab Documented By: Naloxone HCl (Naloxone 0.4 Mg/Ml Vial) 0.2 mg IV Q2MIN PRN PRN Reason: Opiate Reversal Nicotine (Nicotine 14 Patch) 14 mg TOP DAILY [facility] Last Admin: 02/05/22 09:04 Dose: 14 mg Documented By: Admin: 02/04/22 07:52 Dose: 14 mg Documented By: Admin: 02/03/22 09:04 Dose: 14 mg Documented By: Admin: 02/02/22 09:37 Dose: 14 mg Documented By: Admin: 02/01/22 09:19 Dose: 14 mg Documented By: Admin: 01/31/22 09:48 Dose: 14 mg Documented By: Ondansetron HCl (Ondansetron 4 Mg/2 Ml Inj) 4 mg IV Q8HR PRN PRN Reason: Nausea And Vomiting Potassium Chloride (Potassium Chloride 20 Meq/15 Ml Udc) 20 meq TUBE BIDWM [facility] Last Admin: 02/05/22 08:03 Dose: 20 meq Documented By: Admin: 02/04/22 16:35 Dose: 20 meq Documented By: TIKA Quetiapine Fumarate (Quetiapine 25 Mg Tablet) 25 mg PO BID [facility] Last Admin: 02/05/22 09:03 Dose: 25 mg Documented By: Admin: 02/04/22 20:48 Dose: 25 mg Documented By: Admin: 02/04/22 10:05 Dose: 25 mg Documented By: BECKIE Venlafaxine HCl (Venlafaxine 37.5 Mg Tablet) 37.5 mg PO BID [facility] Last Admin: 02/05/22 09:03 Dose: 37.5 mg Documented By: Admin: 02/04/22 20:48 Dose: 37.5 mg Documented By: Admin: 02/04/22 07:53 Dose: 37.5 mg Documented By: Admin: 02/03/22 20:58 Dose: 37.5 mg Documented By: Admin: 02/03/22 08:57 Dose: 37.5 mg Documented By: Admin: 02/02/22 21:03 Dose: 37.5 mg Documented By: SHANAE Discontinued Medications Albuterol/Ipratropium (Albuterol/Ipratropium 3 Ml Ampul) 3 ml INH Q1H PRN PRN Reason: Shortness Of Breath Last Admin: 01/30/22 12:19 Dose: 3 ml Documented By: LEVI Budesonide (Budesonide 0.5 Mg/2 Ml Neb) 0.5 mg INH NOW ONE Stop: 02/03/22 09:02 Last Admin: 02/03/22 09:25 Dose: 0.5 mg Documented By: ABDIRAHMAN Chlordiazepoxide HCl (Chlordiazepoxide 25 Mg Capsule) 50 mg PO NOW ONE Stop: 02/03/22 10:26 Last Admin: 02/03/22 11:15 Dose: 50 mg Documented By: Chlordiazepoxide HCl (Chlordiazepoxide 25 Mg Capsule) 50 mg PO TID [facility] Last Admin: 02/04/22 07:53 Dose: 50 mg Documented By: Admin: 02/03/22 20:58 Dose: 50 mg Documented By: SHANAE Chlordiazepoxide HCl (Chlordiazepoxide 25 Mg Capsule) 50 mg PO NOW ONE Stop: 02/04/22 10:01 Last Admin: 02/04/22 10:05 Dose: 50 mg Documented By: BECKIE Dexamethasone (Dexamethasone 10 Mg/Ml Vial) 6 mg IV DAILY [facility] Last Admin: 02/04/22 07:54 Dose: 6 mg Documented By: Admin: 02/03/22 08:56 Dose: 6 mg Documented By: Admin: 02/02/22 09:36 Dose: 6 mg Documented By: Admin: 02/01/22 09:20 Dose: 6 mg Documented By: Admin: 01/31/22 09:49 Dose: 6 mg Documented By: Furosemide (Furosemide 40 Mg/4 Ml Vial) 40 mg IV NOW ONE Stop: 01/31/22 00:21 Last Admin: 01/31/22 02:13 Dose: 40 mg Documented By: ZACHARY Furosemide (Furosemide 40 Mg/4 Ml Vial) 40 mg IV NOW ONE Stop: 02/01/22 20:25 Last Admin: 02/01/22 21:48 Dose: Not Given Documented By: SOY Furosemide (Furosemide 40 Mg/4 Ml Vial) 40 mg IV NOW ONE Stop: 02/01/22 21:46 Last Admin: 02/01/22 21:47 Dose: 40 mg Documented By: SOY Furosemide (Furosemide 40 Mg/4 Ml Vial) 40 mg IV NOW ONE Stop: 02/02/22 22:23 Last Admin: 02/02/22 23:11 Dose: 40 mg Documented By: SHANAE Furosemide (Furosemide 40 Mg/4 Ml Vial) 40 mg IV Q12HR [facility] Heparin Sodium (Porcine) (Heparin 5,000 Unit/Ml Vial) 5,000 unit SUBCUT BID [facility] Last Admin: 01/30/22 23:03 Dose: 5,000 unit Documented By: (2) Piperacillin Sod/Tazobactam (Sod 4.5 gm/ Sodium Chloride) 100 mls @ 200 mls/hr IV NOW ONE Stop: 01/30/22 13:04 Last Infusion: 01/30/22 14:12 Dose: 0 mls/hr Documented By: Admin: 01/30/22 13:22 Dose: 200 mls/hr Documented By: NICOLE Sodium Chloride (Normal Saline 0.9%) 1,000 mls @ 1,000 mls/hr IV BOLUS ONE Stop: 01/30/22 14:52 Last Infusion: 01/31/22 01:31 Dose: 0 mls/hr Documented By: Admin: 01/30/22 14:13 Dose: 1,000 mls/hr Documented By: ALICIA Azithromycin 500 mg/ Dextrose 250 mls @ 250 mls/hr IV Q24H [facility] Stop: 02/03/22 16:16 Last Admin: 02/03/22 15:42 Dose: 250 mls/hr Documented By: Infusion: 02/02/22 17:49 Dose: 0 mls/hr Documented By: Admin: 02/02/22 14:44 Dose: 250 mls/hr Documented By: Infusion: 02/01/22 16:35 Dose: 0 mls/hr Documented By: Admin: 02/01/22 15:35 Dose: 250 mls/hr Documented By: Infusion: 01/31/22 15:45 Dose: 0 mls/hr Documented By: Admin: 01/31/22 14:45 Dose: 250 mls/hr Documented By: Infusion: 01/31/22 01:30 Dose: 0 mls/hr Documented By: Admin: 01/30/22 16:15 Dose: 250 mls/hr Documented By: YOAN Cefepime HCl 1 gm/ Sodium (Chloride) 100 mls @ 200 mls/hr IV Q12H [facility] Last Admin: 01/30/22 15:20 Dose: Not Given Documented By: YOAN Cefepime HCl 1 gm/ Sodium (Chloride) 100 mls @ 200 mls/hr IV Q12H [facility] Last Infusion: 01/31/22 01:31 Dose: 0 mls/hr Documented By: Admin: 01/30/22 18:20 Dose: 200 mls/hr Documented By: YOAN dexmedeTOMIDine in 0.9 % NaCL (Precedex) 400 mcg in 100 mls @ 3.629 mls/hr IV TITRATE MELVIN; Protocol Last Admin: 01/31/22 15:19 Dose: 1 mcg/kg/hr, 18.144 mls/hr Documented By: Titration: 01/31/22 15:19 Dose: 1 mcg/kg/hr, 18.144 mls/hr Documented By: Titration: 01/31/22 13:59 Dose: 1 mcg/kg/hr, 18.144 mls/hr Documented By: Admin: 01/31/22 08:12 Dose: 0.6 mcg/kg/hr, 10.886 mls/hr Documented By: JNadiaY Titration: 01/31/22 08:12 Dose: 0 mcg/kg/hr, 0 mls/hr Documented By: Titration: 01/31/22 06:36 Dose: 0 mcg/kg/hr, 0 mls/hr Documented By: Titration: 01/31/22 06:00 Dose: 1 mcg/kg/hr, 18.144 mls/hr Documented By: Titration: 01/31/22 05:25 Dose: 0.8 mcg/kg/hr, 14.515 mls/hr Documented By: Titration: 01/31/22 04:55 Dose: 0.6 mcg/kg/hr, 10.886 mls/hr Documented By: Titration: 01/31/22 03:25 Dose: 0.4 mcg/kg/hr, 7.258 mls/hr Documented By: Admin: 01/31/22 02:53 Dose: 0.2 mcg/kg/hr, 3.629 mls/hr Documented By: ZACHARY Cefepime HCl 1 gm/ Sodium (Chloride) 100 mls @ 200 mls/hr IV DAILY [facility] Magnesium Sulfate (Magnesium Sulfate) 2 gm in 50 mls @ 25 mls/hr IV NOW ONE Stop: 01/31/22 10:14 Last Infusion: 01/31/22 11:53 Dose: 0 mls/hr Documented By: Co-signed By: ENA Admin: 01/31/22 09:53 Dose: 25 mls/hr Documented By: Co-signed By: ENA POTASSIUM CHLORIDE IN WATER (Potassium Cl 10 Meq/100 Ml Cyndie) 10 meq in 100 mls @ 100 mls/hr IV Q1H [facility] Stop: 01/31/22 12:59 Last Infusion: 02/01/22 16:38 Dose: 0 mls/hr Documented By: Admin: 01/31/22 12:16 Dose: 100 mls/hr Documented By: Infusion: 01/31/22 12:16 Dose: 100 mls/hr Documented By: Admin: 01/31/22 11:26 Dose: 100 mls/hr Documented By: Infusion: 01/31/22 11:07 Dose: 100 mls/hr Documented By: Admin: 01/31/22 10:07 Dose: 100 mls/hr Documented By: Infusion: 01/31/22 10:07 Dose: 100 mls/hr Documented By: Admin: 01/31/22 09:54 Dose: 100 mls/hr Documented By: MS Remdesivir 100 mg/ Sodium (Chloride) 250 mls @ 250 mls/hr IV DAILY [facility] Stop: 02/09/22 09:59 Last Admin: 02/01/22 16:36 Dose: Not Given Documented By: MS Cefepime HCl 1 gm/ Sodium (Chloride) 100 mls @ 200 mls/hr IV Q12H [facility] Last Admin: 01/31/22 13:14 Dose: Not Given Documented By: MS Thiamine HCl 500 mg/ Sodium (Chloride) 105 mls @ 420 mls/hr IV TID [facility] Stop: 02/02/22 09:01 Last Admin: 02/02/22 11:09 Dose: 420 mls/hr Documented By: Infusion: 02/01/22 23:36 Dose: 0 mls/hr Documented By: Admin: 02/01/22 21:50 Dose: 420 mls/hr Documented By: Infusion: 02/01/22 15:51 Dose: 0 mls/hr Documented By: Admin: 02/01/22 15:36 Dose: 420 mls/hr Documented By: Infusion: 02/01/22 10:55 Dose: 0 mls/hr Documented By: Admin: 02/01/22 09:19 Dose: 420 mls/hr Documented By: Infusion: 01/31/22 21:05 Dose: 0 mls/hr Documented By: Admin: 01/31/22 20:08 Dose: 420 mls/hr Documented By: Infusion: 01/31/22 15:02 Dose: 0 mls/hr Documented By: Admin: 01/31/22 14:47 Dose: 420 mls/hr Documented By: MS Vancomycin HCl (Vancomycin) 1,000 mg in 200 mls @ 200 mls/hr IV Q18H [facility] Remdesivir 200 mg/ Sodium (Chloride) 250 mls @ 250 mls/hr IV NOW ONE Stop: 01/31/22 13:59 Last Admin: 01/31/22 12:20 Dose: 250 mls/hr Documented By: MS Vancomycin HCl (Vancomycin) 1,000 mg in 200 mls @ 200 mls/hr IV Q18H [facility] Last Infusion: 02/02/22 03:13 Dose: 0 mls/hr Documented By: Admin: 02/02/22 01:54 Dose: 200 mls/hr Documented By: Infusion: 02/01/22 09:09 Dose: 0 mls/hr Documented By: Admin: 02/01/22 08:09 Dose: 200 mls/hr Documented By: Infusion: 01/31/22 15:44 Dose: 0 mls/hr Documented By: Admin: 01/31/22 14:44 Dose: 200 mls/hr Documented By: Cefepime HCl 1 gm/ Sodium (Chloride) 100 mls @ 200 mls/hr IV Q12H [facility] Last Infusion: 02/02/22 04:24 Dose: 0 mls/hr Documented By: Admin: 02/02/22 03:13 Dose: 200 mls/hr Documented By: Infusion: 02/01/22 16:18 Dose: 0 mls/hr Documented By: Admin: 02/01/22 15:48 Dose: 200 mls/hr Documented By: Infusion: 02/01/22 05:40 Dose: 0 mls/hr Documented By: Admin: 02/01/22 03:07 Dose: 200 mls/hr Documented By: Infusion: 01/31/22 16:26 Dose: 0 mls/hr Documented By: Admin: 01/31/22 15:56 Dose: 200 mls/hr Documented By: Midazolam HCl 50 mg/ Dextrose 250 mls @ 25 mls/hr IV TITRATE MELVIN; Protocol Last Infusion: 02/02/22 05:06 Dose: 0 mg/hr, 0 mls/hr Documented By: Admin: 02/02/22 04:16 Dose: 6 mg/hr, 30 mls/hr Documented By: Infusion: 02/02/22 04:16 Dose: 6 mg/hr, 30 mls/hr Documented By: Admin: 02/01/22 20:41 Dose: 6 mg/hr, 30 mls/hr Documented By: Infusion: 02/01/22 19:21 Dose: 6 mg/hr, 30 mls/hr Documented By: Admin: 02/01/22 11:01 Dose: 6 mg/hr, 30 mls/hr Documented By: Infusion: 02/01/22 11:01 Dose: 6 mg/hr, 30 mls/hr Documented By: Admin: 02/01/22 05:45 Dose: 6 mg/hr, 30 mls/hr Documented By: Infusion: 02/01/22 05:45 Dose: 6 mg/hr, 30 mls/hr Documented By: Infusion: 02/01/22 05:00 Dose: 6 mg/hr, 30 mls/hr Documented By: Admin: 01/31/22 19:57 Dose: 5 mg/hr, 25 mls/hr Documented By: SOY POTASSIUM CHLORIDE IN WATER (Potassium Cl 10 Meq/100 Ml Cyndie) 10 meq in 100 mls @ 100 mls/hr IV Q1H [facility] Stop: 02/01/22 10:14 Last Infusion: 02/01/22 16:38 Dose: 0 mls/hr Documented By: Admin: 02/01/22 09:31 Dose: 100 mls/hr Documented By: Infusion: 02/01/22 09:31 Dose: 100 mls/hr Documented By: Admin: 02/01/22 09:04 Dose: 100 mls/hr Documented By: Infusion: 02/01/22 09:04 Dose: 100 mls/hr Documented By: Admin: 02/01/22 08:07 Dose: 100 mls/hr Documented By: Infusion: 02/01/22 07:52 Dose: 100 mls/hr Documented By: Admin: 02/01/22 06:52 Dose: 100 mls/hr Documented By: SOY Magnesium Sulfate (Magnesium Sulfate) 2 gm in 50 mls @ 25 mls/hr IV NOW ONE Stop: 02/02/22 07:28 Last Admin: 02/02/22 05:55 Dose: 25 mls/hr Documented By: SOY Co-signed By: ANISH POTASSIUM CHLORIDE IN WATER (Potassium Cl 10 Meq/100 Ml Cyndie) 10 meq in 100 mls @ 100 mls/hr IV Q1H [facility] Stop: 02/02/22 09:29 Last Admin: 02/02/22 10:19 Dose: 100 mls/hr Documented By: Infusion: 02/02/22 10:19 Dose: 100 mls/hr Documented By: Admin: 02/02/22 09:36 Dose: 100 mls/hr Documented By: Infusion: 02/02/22 09:16 Dose: 100 mls/hr Documented By: Admin: 02/02/22 08:16 Dose: 100 mls/hr Documented By: Infusion: 02/02/22 06:54 Dose: 100 mls/hr Documented By: Admin: 02/02/22 05:54 Dose: 100 mls/hr Documented By: SOY Ceftriaxone Sodium 1,000 mg/ (Sodium Chloride) 100 mls @ 200 mls/hr IV Q24H [facility] Last Infusion: 02/02/22 14:44 Dose: 0 mls/hr Documented By: Admin: 02/02/22 11:17 Dose: 200 mls/hr Documented By: GLADIS POTASSIUM CHLORIDE IN WATER (Potassium Cl 10 Meq/100 Ml Cyndie) 10 meq in 100 mls @ 100 mls/hr IV Q1H [facility] Stop: 02/02/22 14:59 Last Admin: 02/02/22 14:42 Dose: 100 mls/hr Documented By: Infusion: 02/02/22 14:02 Dose: 100 mls/hr Documented By: Admin: 02/02/22 13:02 Dose: 100 mls/hr Documented By: Infusion: 02/02/22 13:02 Dose: 100 mls/hr Documented By: Admin: 02/02/22 12:19 Dose: 100 mls/hr Documented By: Infusion: 02/02/22 12:17 Dose: 100 mls/hr Documented By: Admin: 02/02/22 11:17 Dose: 100 mls/hr Documented By: GLADIS Loperamide HCl (Loperamide 2 Mg/15 Ml Udc) 4 mg PO Q4H PRN PRN Reason: Diarrhea Lorazepam (Lorazepam 0.5 Mg Tablet) 0.5 mg PO NOW ONE Stop: 01/30/22 19:27 Last Admin: 01/30/22 19:53 Dose: 0.5 mg Documented By: MS(2) Lorazepam (Lorazepam 1 Mg Tablet) 1 mg PO Q6HR PRN PRN Reason: Anxiety Last Admin: 01/30/22 23:54 Dose: 1 mg Documented By: MS(2) Lorazepam (Lorazepam 1 Mg Tablet) 0 mg PO [id number] PRN; Protocol PRN Reason: Alcohol Withdrawal Methylprednisolone (Methylprednisolone 125 Mg/2 Ml Vial) 125 mg IV NOW ONE Stop: 01/30/22 13:05 Last Admin: 01/30/22 13:22 Dose: 125 mg Documented By: NICOLE Metoprolol Tartrate (Metoprolol Ir 50 Mg Tablet) 50 mg PO BID [facility] Last Admin: 01/31/22 09:11 Dose: Not Given Documented By: Admin: 01/30/22 23:03 Dose: 50 mg Documented By: (2) Midazolam HCl (Midazolam 2 Mg/2 Ml Vial) 1 mg IV Q1H PRN PRN Reason: Agitation Naloxone HCl (Naloxone 0.4 Mg/Ml Vial) 0.2 mg IV Q2MIN PRN PRN Reason: Opiate Reversal Phenobarbital (Phenobarbital 65 Mg/Ml Vial) 260 mg IV NOW ONE Stop: 01/31/22 18:47 Last Admin: 01/31/22 19:57 Dose: 260 mg Documented By: SOY Phenobarbital (Phenobarbital 65 Mg/Ml Vial) 260 mg IV NOW ONE Stop: 02/01/22 10:40 Last Admin: 02/01/22 11:02 Dose: 260 mg Documented By: Phenobarbital (Phenobarbital 65 Mg/Ml Vial) 260 mg IV Q6H [facility] Stop: 02/02/22 04:31 Last Admin: 02/02/22 04:18 Dose: 260 mg Documented By: Admin: 02/01/22 21:49 Dose: 260 mg Documented By: Admin: 02/01/22 18:19 Dose: 260 mg Documented By: Potassium Chloride (Potassium Chloride 20 Meq/15 Ml Udc) 40 meq PO NOW ONE Stop: 02/02/22 20:32 Last Admin: 02/02/22 21:03 Dose: 40 meq Documented By: SHANAE Potassium Chloride (Potassium Chloride 20 Meq/15 Ml Udc) 40 meq TUBE NOW ONE Stop: 02/02/22 22:23 Last Admin: 02/02/22 23:11 Dose: 40 meq Documented By: SHANAE Thiamine HCl (Thiamine 100 Mg Tablet) 100 mg PO DAILY [facility] Stop: 02/03/22 09:01 Last Admin: 01/31/22 13:14 Dose: Not Given Documented By: Vancomycin HCl (Vancomycin Per Pharmacy) 1 request MISC NOW ONE Stop: 01/31/22 09:28 Last Admin: 01/31/22 11:26 Dose: 1 request Documented By: Venlafaxine HCl (Venlafaxine Er 37.5 Mg Cap) 37.5 mg PO BID [facility] Last Admin: 02/02/22 10:19 Dose: 37.5 mg Documented By: Admin: 02/01/22 21:50 Dose: 37.5 mg Documented By: Admin: 02/01/22 09:19 Dose: 37.5 mg Documented By: Admin: 01/31/22 20:07 Dose: 37.5 mg Documented By: Admin: 01/31/22 09:49 Dose: 37.5 mg Documented By: Vital Signs Vital signs: Vital Signs - 8 hr 01/30/22 12:10 01/30/22 12:37 01/30/22 12:09 Temperature 98.4 F Pulse Rate 105 H 100 H Respiratory Rate 32 H 22 Blood Pressure 132/69 132/69 Pulse Oximetry 80 L 94 Oxygen Delivery Method Room Air Nasal Cannula Oxygen Flow Rate 2 01/30/22 12:09 01/30/22 12:30 01/30/22 12:30 Temperature Pulse Rate 105 H 100 H Respiratory Rate 36 H Blood Pressure 114/74 Pulse Oximetry 95 Oxygen Delivery Method Oxygen Flow Rate 01/30/22 13:00 01/30/22 13:00 01/30/22 13:30 Temperature Pulse Rate 99 H 98 H Respiratory Rate 26 H 44 H Blood Pressure 124/68 Pulse Oximetry 96 94 Oxygen Delivery Method Nasal Cannula Oxygen Flow Rate 2.5 MDM - SOB/Dyspnea <Cece Bradford, DO - Last Filed: 02/05/22 11:39> Lab Data Result diagrams: 02/05/22 04:00 02/05/22 04:00 Labs: Lab Results 01/30/22 01/30/22 01/30/22 Range/Units 12:11 12:15 12:15 WBC 27.8 H (4.5-11.0) X10^3/uL RBC 3.94 L (4.0-5.2) X10^6/uL Hgb 12.5 (12.0-16.0) g/dL Hct 38.5 (36-46) % MCV 97.6 (80-100) fL MCH 31.7 (26-34) PG MCHC 32.4 (30-36) % RDW 14.6 (11.6-14.8) % Plt Count 244 (150-400) X10^3/uL Neut % (Auto) Not Reportable Lymph % (Auto) Not Reportable Terry % (Auto) Not Reportable Eos % (Auto) Not Reportable Baso % (Auto) Not Reportable Lymph # (Auto) Not Reportable Terry # (Auto) Not Reportable Baso # (Auto) Not Reportable Total Counted 100 Seg Neutrophils % 84.0 H (38-70) % Band Neutrophils % 6.0 (3-7) % Lymphocytes % (Manual) 4.0 L (25-45) % Monocytes % (Manual) 6.0 (2-11) % Neutrophils # (Manual) 74856 H (2586-9712) /uL RBC Morphology See below Anisocytosis 1+ H PT 12.5 (10.1-12.7) SECONDS INR 1.1 (0.9-1.3) D-Dimer (<500) ng/ml Sodium (137-145) mmol/L Potassium (3.4-5.1) mmol/L Chloride (98-107) mmol/L Carbon Dioxide (22-32) mmol/L BUN (7-17) mg/dL Creatinine (0.52-1.04) mg/dL Estimated GFR (>60) mL/min BUN/Creatinine Ratio (6-22) Glucose (80-110) mg/dL Lactate (0.7-2.1) mmol/L Calcium (8.4-10.2) mg/dL Total Bilirubin (0.2-1.3) mg/dL AST (14-36) IU/L ALT (<35) IU/L Alkaline Phosphatase (38-126) U/L Troponin I (0.01-0.034) ng/mL NT-Pro-B Natriuret Pep (<125) pg/mL Total Protein (6.3-8.2) g/dL Albumin (3.5-5.0) g/dL Globulin (1.7-4.1) g/dL Albumin/Globulin Ratio (1.0-2.8) Procalcitonin (<0.5) ng/mL A. baumannii (PCR) (Not Detect) Chlamy pneumoniae PCR Not detected (Not Detect) Adenovirus (PCR) Not detected (Not Detect) B. pertussis DNA (PCR) Not detected (Not Detecte) B.parapertussis DNA PCR Not detected (Not Detecte) Rosie albicans (PCR) (Not Detect) C. glabrata (PCR) (Not Detect) C. krusei (PCR) (Not Detect) C. parapsilosis (PCR) (Not Detect) C. tropicalis (PCR) (Not Detect) Coronavirus OC43 (PCR) Not detected (Not Detect) Coronavirus HKU1 (PCR) Not detected (Not Detect) Coronavirus 229E (PCR) Not detected (Not Detect) SARS-CoV-2 (PCR) Detected H (Not Detecte) Coronavirus NL63 (PCR) Not detected (Not Detect) Enterobacteriac sp PCR (Not Detect) E. cloacae complex PCR (Not Detect) Enterococcus sp PCR (Not Detect) E. coli (PCR) (Not Detect) H. influenzae (PCR) (Not Detect) Human Metapneumovir PCR Not detected (Not Detect) Influenza Type A (PCR) Not detected (Not Detect) Influenza Type B (PCR) Not detected (Not Detect) Klebsiella oxytoca PCR (Not Detect) Klebsiella pneumoniae (Not Detect) List. monocytogenes PCR (Not Detect) M. pneumoniae (PCR) Not detected (Not Detect) N. meningitidis (PCR) (Not Detect) Parainfluenza 1 (PCR) Not detected (Not Detect) Parainfluenza 2 (PCR) Not detected (Not Detect) Parainfluenza 3 (PCR) Not detected (Not Detect) Parainfluenza 4 (PCR) Not detected (Not Detect) Proteus species (PCR) (Not Detect) RSV (PCR) Not detected (Not Detect) Entero/Rhino (PCR) Not detected (Not Detect) Serratia marcescens PCR (Not Detect) Staphylococcus sp PCR (Not Detect) Staph aureus (PCR) (Not Detect) mecA-Methicil Res Gene (Not Detect) Streptococcus sp PCR (Not Detect) Group A Strep (PCR) (Not Detect) Strep agalactiae (PCR) (Not Detect) Strep pneumoniae (PCR) (Not Detect) P. aeruginosa (PCR) (Not Detect) Jaison/B-Vanco Res Genes KPC-Carbap Res Gene PCR 01/30/22 01/30/22 01/30/22 Range/Units 12:15 12:15 12:15 WBC (4.5-11.0) X10^3/uL RBC (4.0-5.2) X10^6/uL Hgb (12.0-16.0) g/dL Hct (36-46) % MCV (80-100) fL MCH (26-34) PG MCHC (30-36) % RDW (11.6-14.8) % Plt Count (150-400) X10^3/uL Neut % (Auto) Lymph % (Auto) Terry % (Auto) Eos % (Auto) Baso % (Auto) Lymph # (Auto) Terry # (Auto) Baso # (Auto) Total Counted Seg Neutrophils % (38-70) % Band Neutrophils % (3-7) % Lymphocytes % (Manual) (25-45) % Monocytes % (Manual) (2-11) % Neutrophils # (Manual) (4724-9358) /uL RBC Morphology Anisocytosis PT (10.1-12.7) SECONDS INR (0.9-1.3) D-Dimer (<500) ng/ml Sodium 133 L (137-145) mmol/L Potassium 3.6 (3.4-5.1) mmol/L Chloride 91 L (98-107) mmol/L Carbon Dioxide 28 (22-32) mmol/L BUN 32 H (7-17) mg/dL Creatinine 2.03 H (0.52-1.04) mg/dL Estimated GFR 27 L (>60) mL/min BUN/Creatinine Ratio 15.8 (6-22) Glucose 105 (80-110) mg/dL Lactate 1.4 (0.7-2.1) mmol/L Calcium 7.9 L (8.4-10.2) mg/dL Total Bilirubin 0.6 (0.2-1.3) mg/dL AST 25 (14-36) IU/L ALT 25 (<35) IU/L Alkaline Phosphatase 131 H (38-126) U/L Troponin I 0.013 (0.01-0.034) ng/mL NT-Pro-B Natriuret Pep 1500 H (<125) pg/mL Total Protein 7.3 (6.3-8.2) g/dL Albumin 3.5 (3.5-5.0) g/dL Globulin 3.8 (1.7-4.1) g/dL Albumin/Globulin Ratio 0.9 L (1.0-2.8) Procalcitonin 3.86 H (<0.5) ng/mL A. baumannii (PCR) (Not Detect) Chlamy pneumoniae PCR (Not Detect) Adenovirus (PCR) (Not Detect) B. pertussis DNA (PCR) (Not Detecte) B.parapertussis DNA PCR (Not Detecte) Rosie albicans (PCR) (Not Detect) C. glabrata (PCR) (Not Detect) C. krusei (PCR) (Not Detect) C. parapsilosis (PCR) (Not Detect) C. tropicalis (PCR) (Not Detect) Coronavirus OC43 (PCR) (Not Detect) Coronavirus HKU1 (PCR) (Not Detect) Coronavirus 229E (PCR) (Not Detect) SARS-CoV-2 (PCR) (Not Detecte) Coronavirus NL63 (PCR) (Not Detect) Enterobacteriac sp PCR (Not Detect) E. cloacae complex PCR (Not Detect) Enterococcus sp PCR (Not Detect) E. coli (PCR) (Not Detect) H. influenzae (PCR) (Not Detect) Human Metapneumovir PCR (Not Detect) Influenza Type A (PCR) (Not Detect) Influenza Type B (PCR) (Not Detect) Klebsiella oxytoca PCR (Not Detect) Klebsiella pneumoniae (Not Detect) List. monocytogenes PCR (Not Detect) M. pneumoniae (PCR) (Not Detect) N. meningitidis (PCR) (Not Detect) Parainfluenza 1 (PCR) (Not Detect) Parainfluenza 2 (PCR) (Not Detect) Parainfluenza 3 (PCR) (Not Detect) Parainfluenza 4 (PCR) (Not Detect) Proteus species (PCR) (Not Detect) RSV (PCR) (Not Detect) Entero/Rhino (PCR) (Not Detect) Serratia marcescens PCR (Not Detect) Staphylococcus sp PCR (Not Detect) Staph aureus (PCR) (Not Detect) mecA-Methicil Res Gene (Not Detect) Streptococcus sp PCR (Not Detect) Group A Strep (PCR) (Not Detect) Strep agalactiae (PCR) (Not Detect) Strep pneumoniae (PCR) (Not Detect) P. aeruginosa (PCR) (Not Detect) Jaison/B-Vanco Res Genes KPC-Carbap Res Gene PCR 01/30/22 01/30/22 Range/Units 12:15 13:05 WBC (4.5-11.0) X10^3/uL RBC (4.0-5.2) X10^6/uL Hgb (12.0-16.0) g/dL Hct (36-46) % MCV (80-100) fL MCH (26-34) PG MCHC (30-36) % RDW (11.6-14.8) % Plt Count (150-400) X10^3/uL Neut % (Auto) Lymph % (Auto) Terry % (Auto) Eos % (Auto) Baso % (Auto) Lymph # (Auto) Terry # (Auto) Baso # (Auto) Total Counted Seg Neutrophils % (38-70) % Band Neutrophils % (3-7) % Lymphocytes % (Manual) (25-45) % Monocytes % (Manual) (2-11) % Neutrophils # (Manual) (0463-5499) /uL RBC Morphology Anisocytosis PT (10.1-12.7) SECONDS INR (0.9-1.3) D-Dimer 2469 H (<500) ng/ml Sodium (137-145) mmol/L Potassium (3.4-5.1) mmol/L Chloride (98-107) mmol/L Carbon Dioxide (22-32) mmol/L BUN (7-17) mg/dL Creatinine (0.52-1.04) mg/dL Estimated GFR (>60) mL/min BUN/Creatinine Ratio (6-22) Glucose (80-110) mg/dL Lactate (0.7-2.1) mmol/L Calcium (8.4-10.2) mg/dL Total Bilirubin (0.2-1.3) mg/dL AST (14-36) IU/L ALT (<35) IU/L Alkaline Phosphatase (38-126) U/L Troponin I (0.01-0.034) ng/mL NT-Pro-B Natriuret Pep (<125) pg/mL Total Protein (6.3-8.2) g/dL Albumin (3.5-5.0) g/dL Globulin (1.7-4.1) g/dL Albumin/Globulin Ratio (1.0-2.8) Procalcitonin (<0.5) ng/mL A. baumannii (PCR) Not detected (Not Detect) Chlamy pneumoniae PCR (Not Detect) Adenovirus (PCR) (Not Detect) B. pertussis DNA (PCR) (Not Detecte) B.parapertussis DNA PCR (Not Detecte) Rosie albicans (PCR) Not detected (Not Detect) C. glabrata (PCR) Not detected (Not Detect) C. krusei (PCR) Not detected (Not Detect) C. parapsilosis (PCR) Not detected (Not Detect) C. tropicalis (PCR) Not detected (Not Detect) Coronavirus OC43 (PCR) (Not Detect) Coronavirus HKU1 (PCR) (Not Detect) Coronavirus 229E (PCR) (Not Detect) SARS-CoV-2 (PCR) (Not Detecte) Coronavirus NL63 (PCR) (Not Detect) Enterobacteriac sp PCR Not detected (Not Detect) E. cloacae complex PCR Not detected (Not Detect) Enterococcus sp PCR Not detected (Not Detect) E. coli (PCR) Not detected (Not Detect) H. influenzae (PCR) Not detected (Not Detect) Human Metapneumovir PCR (Not Detect) Influenza Type A (PCR) (Not Detect) Influenza Type B (PCR) (Not Detect) Klebsiella oxytoca PCR Not detected (Not Detect) Klebsiella pneumoniae Not detected (Not Detect) List. monocytogenes PCR Not detected (Not Detect) M. pneumoniae (PCR) (Not Detect) N. meningitidis (PCR) Not detected (Not Detect) Parainfluenza 1 (PCR) (Not Detect) Parainfluenza 2 (PCR) (Not Detect) Parainfluenza 3 (PCR) (Not Detect) Parainfluenza 4 (PCR) (Not Detect) Proteus species (PCR) Not detected (Not Detect) RSV (PCR) (Not Detect) Entero/Rhino (PCR) (Not Detect) Serratia marcescens PCR Not detected (Not Detect) Staphylococcus sp PCR Detected H (Not Detect) Staph aureus (PCR) Not detected (Not Detect) mecA-Methicil Res Gene Not detected (Not Detect) Streptococcus sp PCR Not detected (Not Detect) Group A Strep (PCR) Not detected (Not Detect) Strep agalactiae (PCR) Not detected (Not Detect) Strep pneumoniae (PCR) Not detected (Not Detect) P. aeruginosa (PCR) Not detected (Not Detect) Jaison/B-Vanco Res Genes Not Reportable KPC-Carbap Res Gene PCR Not Reportable Urine Dip Bedside Urine Glucose Negative Bedside Urine Bilirubin + 1 Bedside Urine Ketone - Negative Urine Specific [place] 1.025 Bedside Urine Occult Blood - Negative Bedside Urine pH 5.5 Bedside Urine Protein + 30 Bedside Urine Urobilinogen - Negative Bedside Urine Nitrite - Negative Bedside Urine Leukocytes ++ 125 Esterase Imaging Data Chest x-ray: Radiologist's Impression: [address] [address] XRay Report Signed Patient: Sendy Hollins MR#: [id number] : 1960 Acct:[id number] Age/Sex: 62 / F Date of Service: 01/30/22 Loc: ED Accession Number: [id number] ?? Procedure: XR chest 1V Ordering Provider: Cece Bradford D.O. PROCEDURE:? XR CHEST 1V ? INDICATIONS:? Shortness of breath ? TECHNIQUE:? One view of the chest was acquired.? ? COMPARISON:? [facility], CR, XR CHEST FOR PICC 1V, 03/20/2020, 14:00. ? FINDINGS:? ? Surgical changes and devices:? None.? ? Lungs and pleura:? Right basilar opacity is suspicious for pneumonia.? Left lung is clear.? No pneumothorax. ? Mediastinum:? Mediastinal contours appear normal.? Heart size is normal.? ? Bones and chest wall:? No suspicious bony lesions.? Overlying soft tissues appear unremarkable.? ? IMPRESSION:? Right basilar opacities are suspicious for pneumonia.? Approved by: Wilfrido Cisse M.D. on 01/30/2022 at 12:53? ECG Data Attestation: I personally reviewed and interpreted this ECG as follows: Interpretation: Sinus rhythm rate of 96 W[place] 158 QRS is [address] elevation no depression noted. MDM Narrative Medical decision making narrative: This is a 62-year-old female sent for difficulty breathing by Dr. Troy, he had been seeing patient in the office. Patient is immunosuppressed she is on medication for rheumatoid arthritis just recently stopped her prednisone as they have had COVID in the house. Patient still test positive for coronavirus. Patient's chest x-ray shows effusions versus multifocal pneumonia or both, she is a white count of 27, she is slightly tachycardic into the 90s and 105 range, she is hypoxic, no bandemia but patient does meet septic criteria she is not been persistently hypotensive. She appears to have acute kidney injury with a creatinine of 2 compared to prior labs in the past and tachypnea. Patient received neb treatment here had minimal improvement she was not particularly wheezy on my examination and is more decreased on the right side consistent with her right-sided chest pain and changes on chest x-ray consistent with infection. Patient is maintaining oxygen with 2-1/2 L, she is tachypneic but not using accessory muscles while seated. Patient has never required oxygen she does have a history of tobacco abuse and likely has some COPD or emphysematous component. She has had prior pericardial effusions although heart is not globular on chest x-ray. Patient covered with antibiotics as I suspect she has a bacterial infection superimposed on her COVID. She may be a candidate for dexamethasone and remdesivir, will discuss with the hospitalist. Patient did not receive a 30 cc/kilos bolus secondary to potential for fluid overload. Patient accepted by hospitalist, Dr. Ernst who is seeing the patient in the department. <Lexie Caldwell MD - Last Filed: 01/31/22 22:38> Lab Data Labs: Lab Results 01/30/22 01/30/22 01/30/22 Range/Units 12:11 12:15 12:15 WBC 27.8 H (4.5-11.0) X10^3/uL RBC 3.94 L (4.0-5.2) X10^6/uL Hgb 12.5 (12.0-16.0) g/dL Hct 38.5 (36-46) % MCV 97.6 (80-100) fL MCH 31.7 (26-34) PG MCHC 32.4 (30-36) % RDW 14.6 (11.6-14.8) % Plt Count 244 (150-400) X10^3/uL Neut % (Auto) Not Reportable Lymph % (Auto) Not Reportable Terry % (Auto) Not Reportable Eos % (Auto) Not Reportable Baso % (Auto) Not Reportable Lymph # (Auto) Not Reportable Terry # (Auto) Not Reportable Baso # (Auto) Not Reportable Total Counted 100 Seg Neutrophils % 84.0 H (38-70) % Band Neutrophils % 6.0 (3-7) % Lymphocytes % (Manual) 4.0 L (25-45) % Monocytes % (Manual) 6.0 (2-11) % Neutrophils # (Manual) 33310 H (1874-1800) /uL RBC Morphology See below Anisocytosis 1+ H PT 12.5 (10.1-12.7) SECONDS INR 1.1 (0.9-1.3) D-Dimer (<500) ng/ml Sodium (137-145) mmol/L Potassium (3.4-5.1) mmol/L Chloride (98-107) mmol/L Carbon Dioxide (22-32) mmol/L BUN (7-17) mg/dL Creatinine (0.52-1.04) mg/dL Estimated GFR (>60) mL/min BUN/Creatinine Ratio (6-22) Glucose (80-110) mg/dL Lactate (0.7-2.1) mmol/L Calcium (8.4-10.2) mg/dL Total Bilirubin (0.2-1.3) mg/dL AST (14-36) IU/L ALT (<35) IU/L Alkaline Phosphatase (38-126) U/L Troponin I (0.01-0.034) ng/mL NT-Pro-B Natriuret Pep (<125) pg/mL Total Protein (6.3-8.2) g/dL Albumin (3.5-5.0) g/dL Globulin (1.7-4.1) g/dL Albumin/Globulin Ratio (1.0-2.8) Procalcitonin (<0.5) ng/mL A. baumannii (PCR) (Not Detect) Chlamy pneumoniae PCR Not detected (Not Detect) Adenovirus (PCR) Not detected (Not Detect) B. pertussis DNA (PCR) Not detected (Not Detecte) B.parapertussis DNA PCR Not detected (Not Detecte) Rosie albicans (PCR) (Not Detect) C. glabrata (PCR) (Not Detect) C. krusei (PCR) (Not Detect) C. parapsilosis (PCR) (Not Detect) C. tropicalis (PCR) (Not Detect) Coronavirus OC43 (PCR) Not detected (Not Detect) Coronavirus HKU1 (PCR) Not detected (Not Detect) Coronavirus 229E (PCR) Not detected (Not Detect) SARS-CoV-2 (PCR) Detected H (Not Detecte) Coronavirus NL63 (PCR) Not detected (Not Detect) Enterobacteriac sp PCR (Not Detect) E. cloacae complex PCR (Not Detect) Enterococcus sp PCR (Not Detect) E. coli (PCR) (Not Detect) H. influenzae (PCR) (Not Detect) Human Metapneumovir PCR Not detected (Not Detect) Influenza Type A (PCR) Not detected (Not Detect) Influenza Type B (PCR) Not detected (Not Detect) Klebsiella oxytoca PCR (Not Detect) Klebsiella pneumoniae (Not Detect) List. monocytogenes PCR (Not Detect) M. pneumoniae (PCR) Not detected (Not Detect) N. meningitidis (PCR) (Not Detect) Parainfluenza 1 (PCR) Not detected (Not Detect) Parainfluenza 2 (PCR) Not detected (Not Detect) Parainfluenza 3 (PCR) Not detected (Not Detect) Parainfluenza 4 (PCR) Not detected (Not Detect) Proteus species (PCR) (Not Detect) RSV (PCR) Not detected (Not Detect) Entero/Rhino (PCR) Not detected (Not Detect) Serratia marcescens PCR (Not Detect) Staphylococcus sp PCR (Not Detect) Staph aureus (PCR) (Not Detect) mecA-Methicil Res Gene (Not Detect) Streptococcus sp PCR (Not Detect) Group A Strep (PCR) (Not Detect) Strep agalactiae (PCR) (Not Detect) Strep pneumoniae (PCR) (Not Detect) P. aeruginosa (PCR) (Not Detect) Jaison/B-Vanco Res Genes KPC-Carbap Res Gene PCR 01/30/22 01/30/22 01/30/22 Range/Units 12:15 12:15 12:15 WBC (4.5-11.0) X10^3/uL RBC (4.0-5.2) X10^6/uL Hgb (12.0-16.0) g/dL Hct (36-46) % MCV (80-100) fL MCH (26-34) PG MCHC (30-36) % RDW (11.6-14.8) % Plt Count (150-400) X10^3/uL Neut % (Auto) Lymph % (Auto) Terry % (Auto) Eos % (Auto) Baso % (Auto) Lymph # (Auto) Terry # (Auto) Baso # (Auto) Total Counted Seg Neutrophils % (38-70) % Band Neutrophils % (3-7) % Lymphocytes % (Manual) (25-45) % Monocytes % (Manual) (2-11) % Neutrophils # (Manual) (3088-1206) /uL RBC Morphology Anisocytosis PT (10.1-12.7) SECONDS INR (0.9-1.3) D-Dimer (<500) ng/ml Sodium 133 L (137-145) mmol/L Potassium 3.6 (3.4-5.1) mmol/L Chloride 91 L (98-107) mmol/L Carbon Dioxide 28 (22-32) mmol/L BUN 32 H (7-17) mg/dL Creatinine 2.03 H (0.52-1.04) mg/dL Estimated GFR 27 L (>60) mL/min BUN/Creatinine Ratio 15.8 (6-22) Glucose 105 (80-110) mg/dL Lactate 1.4 (0.7-2.1) mmol/L Calcium 7.9 L (8.4-10.2) mg/dL Total Bilirubin 0.6 (0.2-1.3) mg/dL AST 25 (14-36) IU/L ALT 25 (<35) IU/L Alkaline Phosphatase 131 H (38-126) U/L Troponin I 0.013 (0.01-0.034) ng/mL NT-Pro-B Natriuret Pep 1500 H (<125) pg/mL Total Protein 7.3 (6.3-8.2) g/dL Albumin 3.5 (3.5-5.0) g/dL Globulin 3.8 (1.7-4.1) g/dL Albumin/Globulin Ratio 0.9 L (1.0-2.8) Procalcitonin 3.86 H (<0.5) ng/mL A. baumannii (PCR) (Not Detect) Chlamy pneumoniae PCR (Not Detect) Adenovirus (PCR) (Not Detect) B. pertussis DNA (PCR) (Not Detecte) B.parapertussis DNA PCR (Not Detecte) Rosie albicans (PCR) (Not Detect) C. glabrata (PCR) (Not Detect) C. krusei (PCR) (Not Detect) C. parapsilosis (PCR) (Not Detect) C. tropicalis (PCR) (Not Detect) Coronavirus OC43 (PCR) (Not Detect) Coronavirus HKU1 (PCR) (Not Detect) Coronavirus 229E (PCR) (Not Detect) SARS-CoV-2 (PCR) (Not Detecte) Coronavirus NL63 (PCR) (Not Detect) Enterobacteriac sp PCR (Not Detect) E. cloacae complex PCR (Not Detect) Enterococcus sp PCR (Not Detect) E. coli (PCR) (Not Detect) H. influenzae (PCR) (Not Detect) Human Metapneumovir PCR (Not Detect) Influenza Type A (PCR) (Not Detect) Influenza Type B (PCR) (Not Detect) Klebsiella oxytoca PCR (Not Detect) Klebsiella pneumoniae (Not Detect) List. monocytogenes PCR (Not Detect) M. pneumoniae (PCR) (Not Detect) N. meningitidis (PCR) (Not Detect) Parainfluenza 1 (PCR) (Not Detect) Parainfluenza 2 (PCR) (Not Detect) Parainfluenza 3 (PCR) (Not Detect) Parainfluenza 4 (PCR) (Not Detect) Proteus species (PCR) (Not Detect) RSV (PCR) (Not Detect) Entero/Rhino (PCR) (Not Detect) Serratia marcescens PCR (Not Detect) Staphylococcus sp PCR (Not Detect) Staph aureus (PCR) (Not Detect) mecA-Methicil Res Gene (Not Detect) Streptococcus sp PCR (Not Detect) Group A Strep (PCR) (Not Detect) Strep agalactiae (PCR) (Not Detect) Strep pneumoniae (PCR) (Not Detect) P. aeruginosa (PCR) (Not Detect) Jaison/B-Vanco Res Genes KPC-Carbap Res Gene PCR 01/30/22 01/30/22 Range/Units 12:15 13:05 WBC (4.5-11.0) X10^3/uL RBC (4.0-5.2) X10^6/uL Hgb (12.0-16.0) g/dL Hct (36-46) % MCV (80-100) fL MCH (26-34) PG MCHC (30-36) % RDW (11.6-14.8) % Plt Count (150-400) X10^3/uL Neut % (Auto) Lymph % (Auto) Terry % (Auto) Eos % (Auto) Baso % (Auto) Lymph # (Auto) Terry # (Auto) Baso # (Auto) Total Counted Seg Neutrophils % (38-70) % Band Neutrophils % (3-7) % Lymphocytes % (Manual) (25-45) % Monocytes % (Manual) (2-11) % Neutrophils # (Manual) (9777-4731) /uL RBC Morphology Anisocytosis PT (10.1-12.7) SECONDS INR (0.9-1.3) D-Dimer 2469 H (<500) ng/ml Sodium (137-145) mmol/L Potassium (3.4-5.1) mmol/L Chloride (98-107) mmol/L Carbon Dioxide (22-32) mmol/L BUN (7-17) mg/dL Creatinine (0.52-1.04) mg/dL Estimated GFR (>60) mL/min BUN/Creatinine Ratio (6-22) Glucose (80-110) mg/dL Lactate (0.7-2.1) mmol/L Calcium (8.4-10.2) mg/dL Total Bilirubin (0.2-1.3) mg/dL AST (14-36) IU/L ALT (<35) IU/L Alkaline Phosphatase (38-126) U/L Troponin I (0.01-0.034) ng/mL NT-Pro-B Natriuret Pep (<125) pg/mL Total Protein (6.3-8.2) g/dL Albumin (3.5-5.0) g/dL Globulin (1.7-4.1) g/dL Albumin/Globulin Ratio (1.0-2.8) Procalcitonin (<0.5) ng/mL A. baumannii (PCR) Not detected (Not Detect) Chlamy pneumoniae PCR (Not Detect) Adenovirus (PCR) (Not Detect) B. pertussis DNA (PCR) (Not Detecte) B.parapertussis DNA PCR (Not Detecte) Rosie albicans (PCR) Not detected (Not Detect) C. glabrata (PCR) Not detected (Not Detect) C. krusei (PCR) Not detected (Not Detect) C. parapsilosis (PCR) Not detected (Not Detect) C. tropicalis (PCR) Not detected (Not Detect) Coronavirus OC43 (PCR) (Not Detect) Coronavirus HKU1 (PCR) (Not Detect) Coronavirus 229E (PCR) (Not Detect) SARS-CoV-2 (PCR) (Not Detecte) Coronavirus NL63 (PCR) (Not Detect) Enterobacteriac sp PCR Not detected (Not Detect) E. cloacae complex PCR Not detected (Not Detect) Enterococcus sp PCR Not detected (Not Detect) E. coli (PCR) Not detected (Not Detect) H. influenzae (PCR) Not detected (Not Detect) Human Metapneumovir PCR (Not Detect) Influenza Type A (PCR) (Not Detect) Influenza Type B (PCR) (Not Detect) Klebsiella oxytoca PCR Not detected (Not Detect) Klebsiella pneumoniae Not detected (Not Detect) List. monocytogenes PCR Not detected (Not Detect) M. pneumoniae (PCR) (Not Detect) N. meningitidis (PCR) Not detected (Not Detect) Parainfluenza 1 (PCR) (Not Detect) Parainfluenza 2 (PCR) (Not Detect) Parainfluenza 3 (PCR) (Not Detect) Parainfluenza 4 (PCR) (Not Detect) Proteus species (PCR) Not detected (Not Detect) RSV (PCR) (Not Detect) Entero/Rhino (PCR) (Not Detect) Serratia marcescens PCR Not detected (Not Detect) Staphylococcus sp PCR Detected H (Not Detect) Staph aureus (PCR) Not detected (Not Detect) mecA-Methicil Res Gene Not detected (Not Detect) Streptococcus sp PCR Not detected (Not Detect) Group A Strep (PCR) Not detected (Not Detect) Strep agalactiae (PCR) Not detected (Not Detect) Strep pneumoniae (PCR) Not detected (Not Detect) P. aeruginosa (PCR) Not detected (Not Detect) Jaison/B-Vanco Res Genes Not Reportable KPC-Carbap Res Gene PCR Not Reportable Urine Dip Bedside Urine Glucose Negative Bedside Urine Bilirubin + 1 Bedside Urine Ketone - Negative Urine Specific [place] 1.025 Bedside Urine Occult Blood - Negative Bedside Urine pH 5.5 Bedside Urine Protein + 30 Bedside Urine Urobilinogen - Negative Bedside Urine Nitrite - Negative Bedside Urine Leukocytes ++ 125 Esterase Critical Care Time <Cece Bradford, - Last Filed: 02/05/22 11:39> Critical Care Time Critical Care Time: Yes Total Critical Care Time: 20 Attestation: The high probability of a clinically significant, sudden or life threatening deterioration of the [] system(s) required my full and direct attention, intervention and personal management. The aggregate critical care time was [] minutes. This time is in addition to time spent performing reported procedures but includes the following: [x] Data Review and interpretation [x] Patient assessment and monitoring of vital signs [x] Documentation [x] Medication orders and management Discharge Plan Departure Patient Disposition: Admitted As Inpatient Clinical Impression: Pneumonia, COVID-19 virus infection, PAUL (acute kidney injury), Sepsis Admit Date/Time: 01/30/22 14:10 Admit Provider: Abdoul Ernst
[2022-01-30 12:53] LABS: Neutrophils Absolute Manual 25020 /uL (3000-5900); Total Cells Counted 100
[2022-01-30 12:54] LABS: Anisocytosis 1+
[2022-01-30 12:55] LABS: NT-proBNP (BNP-Adult 18+) 1500 pg/mL (<125); Troponin I 0.013 ng/mL (0.01-0.034)
[2022-01-30 13:19] LABS: Adenovirus Not Detected (Not Detect); B. parapertussis Not Detected (Not Detecte); Bordetella pertussis Not Detected (Not Detecte); Coronavirus 229E Not Detected (Not Detect); Coronavirus HKU1 Not Detected (Not Detect); Coronavirus NL 63 Not Detected (Not Detect); Coronavirus OC43 Not Detected (Not Detect); Human Metapneumovirus Not Detected (Not Detect); Human Rhinovirus/Enterovirus Not Detected (Not Detect); Influenza A Not Detected (Not Detect); Influenza B Not Detected (Not Detect); Parainfluenza Virus 1 Not Detected (Not Detect); Parainfluenza Virus 2 Not Detected (Not Detect); Parainfluenza Virus 3 Not Detected (Not Detect); Parainfluenza Virus 4 Not Detected (Not Detect); Respiratory Syncytial Virus Not Detected (Not Detect)
[2022-01-30 13:20] LABS: Chlamydophila pneumoniae Not Detected (Not Detect); Mycoplasma pneumoniae Not Detected (Not Detect)
[2022-01-30 13:22] LABS: SARS- CoV-2 Detected (Not Detecte)
[2022-01-30] MEDS: methylPREDNISolone 125 MG/2 ML VIAL IV (13:22)
[2022-01-30] MEDS: PIPERACILLIN/TAZO 4.5 GM in SODIUM CHLORIDE 0.9% 100 ML IV (13:22)
[2022-01-30] MEDS: SODIUM CHLORIDE 0.9% 1,000 ML 1000 ML IV (14:13)
[2022-01-30 14:27] LABS: Procalcitonin 3.86 ng/mL (<0.5)
[2022-01-30 14:47] LABS: Ictotest Urine Negative (Negative)
[2022-01-30 14:58] LABS: Bacteria Urine Moderate (10-30); Culture Indicated Urine Specimen Cultured; RBC Urine 0-1/HPF (0-5/HPF); Squamous Epithelial Cell Urine 0-1 /HPF (0-5/HPF); WBC Urine 5-10/HPF (0-5/HPF)
[2022-01-30] MEDS: AZITHROMYCIN 500 MG in DEXTROSE 5% IN WATER 250 ML 250 MG IV (16:15)
[2022-01-30] MEDS: ALBUTEROL 2.5 MG/3 ML NEB (ADULT) INH (16:51)
[2022-01-30] MEDS: CEFEPIME 1 GM in SODIUM CHLORIDE 0.9% 100 ML IV (18:20)
[2022-01-30 19:12] LABS: D Dimer 2469 ng/ml (<500)
--- NOTE | 2022-01-30 19:32 | PC.NURSE ---
Pt arrives from ED this afternoon A&Ox3. She is extremely SOB with activity, lying flat and talking. She c/o generalized body aches. She declines skin assessment of feet, noted purpleish color of hands and she states she has raynaud's/poor circulation. She is able to get to [facility], however reports R knee pain limiting distance scheduled for R knee replacement in March. She is extremely SOB on 3L NC with activity, 02 saturation 95-96 and HR 90's however patient this evening states she feels like I can't get any air. I am on the verge of a panic attack. shortly after receiving duoneb. notified and RT at bedside. Received orders for ABG. Endorsed to oncoming RN plan of care.
[2022-01-30] MEDS: LORazepam 0.5 MG TABLET PO (19:53)
[2022-01-30 20:05] LABS: HCO3 ABG 26 mmol/L (22-26); PCO2 ABG 59.6 mmHg (35-45); PO2 ABG 79 mmHg (80-100); TCO2 ABG 28 mmol/L (21-31); pH ABG 7.25 (7.35-7.45)
[2022-01-30 20:06] LABS: Fractionated Inspired Oxygen 28; Oxygen Saturation ABG 93 % (95-100)
--- NOTE | 2022-01-30 21:10 | PM.HP.1 ---
History of Present Illness History of Present Illness Date Patient Seen: 01/30/22 Time Patient Seen: 15:00 Chief complaint: Sent by Dr. murcia distress Narrative: Ms. Hollins is a 62W with PMH anxiety, rheumatoid arthritis, active smoker with tobacco abuse, HTN, HL who presents today with shortness of breath. She has had a cough and nasal congestion. She has had some right sided chest pain with. She has been on steroids for rheumatoid, but this has been stopped ude to recent COVID infection. Her shortness of breath is worse with exertion. In the ED workup was done, vitals notable for tachycardia, pulse ox in the 80s, she was placed on nasal cannula. Labs notable for WBC 27.8, creatinine 2.03. BNP 1500, trop 0.013. Lactate 1.4. Procal 3.86. UA with leuk esterase. Chest xray with right sided lung consolidation. She was given antibiotics and admitted for further treatment. Patient History Medical History Anemia Anxiety Chronic back pain (~2013) Degenerative joint disease (DJD) of lumbar spine (~1975) Hyperlipidemia Hypertension Osteoarthritis (~2013) Rheumatoid arthritis (~2009) Scoliosis (~1975) Tobacco dependence Surgical History Anesthesia History of amputation of toe (~2018) History of incision and drainage (03/19/20) Status post left foot surgery (08/23/20) Family & Social History Family History Father Cancer Hypertension Hyperlipidemia Mother Hypertension Brother Testicular cancer Hypertension Brother Diabetes mellitus Hypertension Hyperlipidemia Social History: household members significant other,family Prior Living Arrangements House Safety & Behavioral: Feels Safe in Current Yes Environment Been Physically Hurt or No Threatened By a Person Tobacco & Substance use: Smoking Status Current every day smoker alcohol intake current alcohol intake frequency 3 or more drinks per day Substance Use Type opiates Meds Home Medications and Allergies Home Medications Medication Instructions Recorded Confirmed Type leflunomide 20 mg tablet 20 mg PO DAILY #90 tabs 12/04/20 01/30/22 Rx colchicine 0.6 mg capsule See Rx Instructions .Route 12/31/20 01/30/22 Rx .COMPLEX #180 caps atorvastatin 20 mg tablet 20 mg PO DAILY #90 tabs 08/20/21 01/30/22 Rx hydrochlorothiazide 25 mg tablet 25 mg PO DAILY #90 tabs 08/20/21 01/30/22 Rx metoprolol tartrate 50 mg tablet 50 mg PO BID #180 tabs 08/20/21 01/30/22 Rx nortriptyline 50 mg capsule 50 mg PO DAILY #90 caps 08/20/21 01/30/22 Rx pregabalin 150 mg capsule 150 mg PO BID #180 caps 08/20/21 01/30/22 Rx venlafaxine 37.5 mg 37.5 mg PO 2XD 01/30/22 01/30/22 History capsule,extended release 24 hr Allergies Allergy/AdvReac Type Severity Reaction Status Date / Time lisinopril Allergy Severe angioedema Verified 01/30/22 12:15 Review of Systems Review of Systems Narrative: 14 systems reviewed and negative aside from what is noted in HPI Exam Vital Signs (past 8 hours): - 01/30/22 13:30 01/30/22 13:43 01/30/22 13:43 Temperature Pulse Rate 98 H 97 H Respiratory Rate 44 H 31 H Blood Pressure 115/58 L Pulse Oximetry 94 95 Oxygen Delivery Method Nasal Cannula Oxygen Flow Rate 2.5 2 2 01/30/22 14:00 01/30/22 14:00 01/30/22 14:30 Temperature Pulse Rate 101 H Respiratory Rate 31 H Blood Pressure 122/71 114/57 L Pulse Oximetry 95 Oxygen Delivery Method Oxygen Flow Rate 2 01/30/22 14:30 01/30/22 15:00 01/30/22 15:01 Temperature Pulse Rate 94 H 97 H Respiratory Rate Blood Pressure 152/86 H Pulse Oximetry 95 94 Oxygen Delivery Method Oxygen Flow Rate 2 2 01/30/22 15:17 01/30/22 17:00 01/30/22 15:30 Temperature Pulse Rate 98 H Respiratory Rate 20 Blood Pressure Pulse Oximetry 96 97 Oxygen Delivery Method Nasal Cannula Nasal Cannula Nasal Cannula Oxygen Flow Rate 2 2 01/30/22 15:17 01/30/22 19:25 Temperature 97.3 F L Pulse Rate 99 H 92 H Respiratory Rate 22 20 Blood Pressure 141/62 H Pulse Oximetry 95 96 Oxygen Delivery Method Nasal Cannula Oxygen Flow Rate 2 2 Oxygen Delivery Method Nasal Cannula Oxygen Flow Rate 2 Narrative Exam Narrative: GEN: in respiratory distress HEENT: moist mucous membranes, PERRL NECK: trachea midline, no JVD PULM: wheezes, and coarse breath sounds bilaterally, increased work of breathing, unable to speak full sentences CV: regular rate and rhythm, no murmurs ABD: soft, nontender, nondistended, no organomegaly EXT: warm and well perfused NEURO: awake, alert, oriented Objective Labs Result Diagrams: 01/30/22 12:15 01/30/22 12:15 Labs: Laboratory Results - last 24 hr 01/30/22 01/30/22 01/30/22 12:11 12:15 12:15 WBC 27.8 H RBC 3.94 L Hgb 12.5 Hct 38.5 MCV 97.6 MCH 31.7 MCHC 32.4 RDW 14.6 Plt Count 244 Neut % (Auto) Not Reportable Lymph % (Auto) Not Reportable [place] % (Auto) Not Reportable Eos % (Auto) Not Reportable Baso % (Auto) Not Reportable Lymph # (Auto) Not Reportable [place] # (Auto) Not Reportable Baso # (Auto) Not Reportable Total Counted 100 Seg Neutrophils % 84.0 H Band Neutrophils % 6.0 Lymphocytes % (Manual) 4.0 L Monocytes % (Manual) 6.0 Neutrophils # (Manual) 92123 H RBC Morphology See below Anisocytosis 1+ H PT 12.5 INR 1.1 D-Dimer ABG pH ABG pCO2 ABG pO2 ABG HCO3 ABG Total CO2 ABG O2 Saturation ABG Base Excess FiO2 Sodium Potassium Chloride Carbon Dioxide BUN Creatinine Estimated GFR BUN/Creatinine Ratio Glucose Lactate Calcium Total Bilirubin AST ALT Alkaline Phosphatase Troponin I NT-Pro-B Natriuret Pep Total Protein Albumin Globulin Albumin/Globulin Ratio Procalcitonin Ur Bilirubin Confirm Urine RBC Urine WBC Ur Squamous Epith Cells Urine Bacteria Ur Culture Indicated? Chlamy pneumoniae PCR Not detected Adenovirus (PCR) Not detected B. pertussis DNA (PCR) Not detected B.parapertussis DNA PCR Not detected Coronavirus OC43 (PCR) Not detected Coronavirus HKU1 (PCR) Not detected Coronavirus 229E (PCR) Not detected SARS-CoV-2 (PCR) Detected H Coronavirus NL63 (PCR) Not detected Human Metapneumovir PCR Not detected Influenza Type A (PCR) Not detected Influenza Type B (PCR) Not detected M. pneumoniae (PCR) Not detected Parainfluenza 1 (PCR) Not detected Parainfluenza 2 (PCR) Not detected Parainfluenza 3 (PCR) Not detected Parainfluenza 4 (PCR) Not detected RSV (PCR) Not detected Entero/Rhino (PCR) Not detected 01/30/22 01/30/22 01/30/22 12:15 12:15 12:15 WBC RBC Hgb Hct MCV MCH MCHC RDW Plt Count Neut % (Auto) Lymph % (Auto) [place] % (Auto) Eos % (Auto) Baso % (Auto) Lymph # (Auto) [place] # (Auto) Baso # (Auto) Total Counted Seg Neutrophils % Band Neutrophils % Lymphocytes % (Manual) Monocytes % (Manual) Neutrophils # (Manual) RBC Morphology Anisocytosis PT INR D-Dimer ABG pH ABG pCO2 ABG pO2 ABG HCO3 ABG Total CO2 ABG O2 Saturation ABG Base Excess FiO2 Sodium 133 L Potassium 3.6 Chloride 91 L Carbon Dioxide 28 BUN 32 H Creatinine 2.03 H Estimated GFR 27 L BUN/Creatinine Ratio 15.8 Glucose 105 Lactate 1.4 Calcium 7.9 L Total Bilirubin 0.6 AST 25 ALT 25 Alkaline Phosphatase 131 H Troponin I 0.013 NT-Pro-B Natriuret Pep 1500 H Total Protein 7.3 Albumin 3.5 Globulin 3.8 Albumin/Globulin Ratio 0.9 L Procalcitonin 3.86 H Ur Bilirubin Confirm Urine RBC Urine WBC Ur Squamous Epith Cells Urine Bacteria Ur Culture Indicated? Chlamy pneumoniae PCR Adenovirus (PCR) B. pertussis DNA (PCR) B.parapertussis DNA PCR Coronavirus OC43 (PCR) Coronavirus HKU1 (PCR) Coronavirus 229E (PCR) SARS-CoV-2 (PCR) Coronavirus NL63 (PCR) Human Metapneumovir PCR Influenza Type A (PCR) Influenza Type B (PCR) M. pneumoniae (PCR) Parainfluenza 1 (PCR) Parainfluenza 2 (PCR) Parainfluenza 3 (PCR) Parainfluenza 4 (PCR) RSV (PCR) Entero/Rhino (PCR) 01/30/22 01/30/22 01/30/22 12:15 14:17 14:17 WBC RBC Hgb Hct MCV MCH MCHC RDW Plt Count Neut % (Auto) Lymph % (Auto) [place] % (Auto) Eos % (Auto) Baso % (Auto) Lymph # (Auto) [place] # (Auto) Baso # (Auto) Total Counted Seg Neutrophils % Band Neutrophils % Lymphocytes % (Manual) Monocytes % (Manual) Neutrophils # (Manual) RBC Morphology Anisocytosis PT INR D-Dimer 2469 H ABG pH ABG pCO2 ABG pO2 ABG HCO3 ABG Total CO2 ABG O2 Saturation ABG Base Excess FiO2 Sodium Potassium Chloride Carbon Dioxide BUN Creatinine Estimated GFR BUN/Creatinine Ratio Glucose Lactate Calcium Total Bilirubin AST ALT Alkaline Phosphatase Troponin I NT-Pro-B Natriuret Pep Total Protein Albumin Globulin Albumin/Globulin Ratio Procalcitonin Ur Bilirubin Confirm Negative Urine RBC 0-1/hpf Urine WBC 5-10/hpf H Ur Squamous Epith Cells 0-1 /hpf Urine Bacteria Moderate (10-30) H Ur Culture Indicated? Specimen cultured Chlamy pneumoniae PCR Adenovirus (PCR) B. pertussis DNA (PCR) B.parapertussis DNA PCR Coronavirus OC43 (PCR) Coronavirus HKU1 (PCR) Coronavirus 229E (PCR) SARS-CoV-2 (PCR) Coronavirus NL63 (PCR) Human Metapneumovir PCR Influenza Type A (PCR) Influenza Type B (PCR) M. pneumoniae (PCR) Parainfluenza 1 (PCR) Parainfluenza 2 (PCR) Parainfluenza 3 (PCR) Parainfluenza 4 (PCR) RSV (PCR) Entero/Rhino (PCR) 01/30/22 19:40 WBC RBC Hgb Hct MCV MCH MCHC RDW Plt Count Neut % (Auto) Lymph % (Auto) [place] % (Auto) Eos % (Auto) Baso % (Auto) Lymph # (Auto) [place] # (Auto) Baso # (Auto) Total Counted Seg Neutrophils % Band Neutrophils % Lymphocytes % (Manual) Monocytes % (Manual) Neutrophils # (Manual) RBC Morphology Anisocytosis PT INR D-Dimer ABG pH 7.25 L* ABG pCO2 59.6 H ABG pO2 79 L ABG HCO3 26 ABG Total CO2 28 ABG O2 Saturation 93 L ABG Base Excess -1.0 FiO2 28 Sodium Potassium Chloride Carbon Dioxide BUN Creatinine Estimated GFR BUN/Creatinine Ratio Glucose Lactate Calcium Total Bilirubin AST ALT Alkaline Phosphatase Troponin I NT-Pro-B Natriuret Pep Total Protein Albumin Globulin Albumin/Globulin Ratio Procalcitonin Ur Bilirubin Confirm Urine RBC Urine WBC Ur Squamous Epith Cells Urine Bacteria Ur Culture Indicated? Chlamy pneumoniae PCR Adenovirus (PCR) B. pertussis DNA (PCR) B.parapertussis DNA PCR Coronavirus OC43 (PCR) Coronavirus HKU1 (PCR) Coronavirus 229E (PCR) SARS-CoV-2 (PCR) Coronavirus NL63 (PCR) Human Metapneumovir PCR Influenza Type A (PCR) Influenza Type B (PCR) M. pneumoniae (PCR) Parainfluenza 1 (PCR) Parainfluenza 2 (PCR) Parainfluenza 3 (PCR) Parainfluenza 4 (PCR) RSV (PCR) Entero/Rhino (PCR) Assessment & Plan Assessment & Plan narrative: 1. Acute hypoxemic respiratory failure -patient with COVID positive, wheezes on exam consistent with possible COPD exacerbation -initial wbc 27.8, procal >3 -xray also shows infiltrates consistent with pneumonia -check abg -continue IV antibiotics -continue steroids -no remdesivir for now with PAUL -encourage tobacco cessation -suspect elevated d-dimer secondary to covid 2. Elevated creatinine -baseline unknown -trend daily -hold hctz 3. Rheumatoid arthritis -hold leflunomide 4. Hypertension -continue metoprolol 5. Anxiety -continue venlafaxine CODE: Full Proxy: Saqib Saleh, life partner I have utilized all available resources to reconcile the patient's home medications. Time Spent With Patient Critical Care time: I spent a total of [] minutes of critical care time on this patient's care today; this time is exclusive of procedural time.
[2022-01-30] MEDS: HEPARIN 5,000 UNIT/ML VIAL 5000 UNIT SUBCUT (23:03)
[2022-01-30] MEDS: METOPROLOL IR 50 MG TABLET PO (23:03)
[2022-01-30] MEDS: LORazepam 1 MG TABLET PO (23:54)
[2022-01-31] VITALS (95 sets, daily range): BP systolic 73–202; BP diastolic 46–107; PULSE 84–120; RESP 10–40; TEMP 35.9–36.9; O2SAT 60–100
--- NOTE | 2022-01-31 00:21 | P.EN_ITS ---
Event Note Date Patient Seen: 01/31/22 Time Patient Seen: 00:21 Event Note (Rapid Response, Code, or fall): Oxana Hollins is a 62-year-old female admitted earlier today for an acute on chronic kidney injury, past medical history of anxiety, rheumatoid arthritis, 1 pack per day smoker, hypertension hyperlipidemia and an active drinker presented with cough and congestion and was found to have a right-sided pneumonia, COVID- 19 and an PAUL. Over the course of admission she became more hypoxic with hypercapnia but has been hesitant to allow any high-flow oxygen or BiPAP. She apparently discuss this with both our nurse and RT and will trial the heated high-flow. She has been through the initial COVID vaccines but has not been boosted due to beliefs about conspiracy theories regarding the vaccine. Gen: Alert, oriented, ill-appearing 62 [] y.o. female, speaking one word ordered a time HEENT: normocephalic, atraumatic, conjunctiva clear, sclera non-icteric, oral mucosa pink and moist Neck: supple, full ROM, no JVD, trachea is midline Resp: Lungs bilateral rhonchi and wheezes, tripoding withlabored breathing CV: RRR, no murmur or rubs Abd: soft, non-tender, normoactive BTs Skin: no lesions or rashes, dry and intact Neuro: Alert and oriented X 4 w/no focal deficits. Speech clear and coherent. Extremities: moves all 4 extremities, is ambulatory, negative Rosalinda?s sign Psyche: Anxious, affect. She will be moved into the ICU. Have discussed her case with Dr. Cherry who will see the patient when she arrived to the room.
[2022-01-31 00:55] LABS: pH ABG 7.26 (7.35-7.45)
[2022-01-31 00:56] LABS: Fractionated Inspired Oxygen 36; HCO3 ABG 27 mmol/L (22-26); Oxygen Saturation ABG 91 % (95-100); PO2 ABG 73 mmHg (80-100); TCO2 ABG 28 mmol/L (21-31)
[2022-01-31] MEDS: ALBUTEROL/IPRATROPIUM 3 ML AMPUL INH ×4 (01:11→22:24)
[2022-01-31] MEDS: ALBUTEROL 2.5 MG/3 ML NEB (ADULT) INH (01:15)
[2022-01-31] MEDS: FUROSEMIDE 40 MG/4 ML VIAL IV (02:13)
[2022-01-31] MEDS: dexmedeTOMIDine in 0.9 % NaCL 400 MCG/100 ML PLAST..BAG IV (02:53)
--- NOTE | 2022-01-31 03:27 | P.CONS_ITS ---
History of Present Illness Consult details Date Patient Seen: 01/31/22 Time Patient Seen: 03:27 Chief complaint: Sent by Dr. murcia distress Reason for consult: Acute respiratory distress Meds Home Medications and Allergies Home Medications Medication Instructions Recorded Confirmed Type leflunomide 20 mg tablet 20 mg PO DAILY #90 tabs 12/04/20 01/30/22 Rx colchicine 0.6 mg capsule See Rx Instructions .Route 12/31/20 01/30/22 Rx .COMPLEX #180 caps atorvastatin 20 mg tablet 20 mg PO DAILY #90 tabs 08/20/21 01/30/22 Rx hydrochlorothiazide 25 mg tablet 25 mg PO DAILY #90 tabs 08/20/21 01/30/22 Rx metoprolol tartrate 50 mg tablet 50 mg PO BID #180 tabs 08/20/21 01/30/22 Rx nortriptyline 50 mg capsule 50 mg PO DAILY #90 caps 08/20/21 01/30/22 Rx pregabalin 150 mg capsule 150 mg PO BID #180 caps 08/20/21 01/30/22 Rx venlafaxine 37.5 mg 37.5 mg PO 2XD 01/30/22 01/30/22 History capsule,extended release 24 hr Allergies Allergy/AdvReac Type Severity Reaction Status Date / Time lisinopril Allergy Severe angioedema Verified 01/30/22 12:15 Exam Vital Signs (past 8 hours): - 01/30/22 22:34 01/30/22 23:00 01/30/22 23:00 Temperature 96.5 F L 96.5 F L Pulse Rate 92 H 80 Respiratory Rate 20 16 Blood Pressure 160/86 H 160/85 H Pulse Oximetry 91 92 Oxygen Delivery Method Heated High Flow Oxygen Flow Rate 45 2 2 Fraction of Inspired Oxygen 28 01/31/22 01:35 01/31/22 02:14 Temperature 96.7 F L Pulse Rate 88 Respiratory Rate 16 Blood Pressure 160/86 H Pulse Oximetry 88 L Oxygen Delivery Method Heated High Flow Oxygen Flow Rate 2 50 Fraction of Inspired Oxygen 40 Fraction of Inspired Oxygen 40 Oxygen Delivery Method Heated High Flow Oxygen Flow Rate 50 HENMT Other: Adeq airway Chest Other: tachypneic. good air movement right, decreased on left Resp Other: tachypneic Cardio Other: tach RR GI Other: protuberant Neuro Other: sedated on Precedex but severely agitated Psych Other: agitated Objective Labs Result Diagrams: 02/10/22 04:00 02/10/22 04:00 Labs: Laboratory Results - last 24 hr 01/30/22 01/30/22 01/30/22 12:11 12:15 12:15 WBC 27.8 H RBC 3.94 L Hgb 12.5 Hct 38.5 MCV 97.6 MCH 31.7 MCHC 32.4 RDW 14.6 Plt Count 244 Neut % (Auto) Not Reportable Lymph % (Auto) Not Reportable [place] % (Auto) Not Reportable Eos % (Auto) Not Reportable Baso % (Auto) Not Reportable Lymph # (Auto) Not Reportable [place] # (Auto) Not Reportable Baso # (Auto) Not Reportable Total Counted 100 Seg Neutrophils % 84.0 H Band Neutrophils % 6.0 Lymphocytes % (Manual) 4.0 L Monocytes % (Manual) 6.0 Neutrophils # (Manual) 16486 H RBC Morphology See below Anisocytosis 1+ H PT 12.5 INR 1.1 D-Dimer ABG pH ABG pCO2 ABG pO2 ABG HCO3 ABG Total CO2 ABG O2 Saturation ABG Base Excess FiO2 Sodium Potassium Chloride Carbon Dioxide BUN Creatinine Estimated GFR BUN/Creatinine Ratio Glucose Lactate Calcium Total Bilirubin AST ALT Alkaline Phosphatase Troponin I NT-Pro-B Natriuret Pep Total Protein Albumin Globulin Albumin/Globulin Ratio Procalcitonin Ur Bilirubin Confirm Urine RBC Urine WBC Ur Squamous Epith Cells Urine Bacteria Ur Culture Indicated? Chlamy pneumoniae PCR Not detected Adenovirus (PCR) Not detected B. pertussis DNA (PCR) Not detected B.parapertussis DNA PCR Not detected Coronavirus OC43 (PCR) Not detected Coronavirus HKU1 (PCR) Not detected Coronavirus 229E (PCR) Not detected SARS-CoV-2 (PCR) Detected H Coronavirus NL63 (PCR) Not detected Human Metapneumovir PCR Not detected Influenza Type A (PCR) Not detected Influenza Type B (PCR) Not detected M. pneumoniae (PCR) Not detected Parainfluenza 1 (PCR) Not detected Parainfluenza 2 (PCR) Not detected Parainfluenza 3 (PCR) Not detected Parainfluenza 4 (PCR) Not detected RSV (PCR) Not detected Entero/Rhino (PCR) Not detected 01/30/22 01/30/22 01/30/22 12:15 12:15 12:15 WBC RBC Hgb Hct MCV MCH MCHC RDW Plt Count Neut % (Auto) Lymph % (Auto) [place] % (Auto) Eos % (Auto) Baso % (Auto) Lymph # (Auto) [place] # (Auto) Baso # (Auto) Total Counted Seg Neutrophils % Band Neutrophils % Lymphocytes % (Manual) Monocytes % (Manual) Neutrophils # (Manual) RBC Morphology Anisocytosis PT INR D-Dimer ABG pH ABG pCO2 ABG pO2 ABG HCO3 ABG Total CO2 ABG O2 Saturation ABG Base Excess FiO2 Sodium 133 L Potassium 3.6 Chloride 91 L Carbon Dioxide 28 BUN 32 H Creatinine 2.03 H Estimated GFR 27 L BUN/Creatinine Ratio 15.8 Glucose 105 Lactate 1.4 Calcium 7.9 L Total Bilirubin 0.6 AST 25 ALT 25 Alkaline Phosphatase 131 H Troponin I 0.013 NT-Pro-B Natriuret Pep 1500 H Total Protein 7.3 Albumin 3.5 Globulin 3.8 Albumin/Globulin Ratio 0.9 L Procalcitonin 3.86 H Ur Bilirubin Confirm Urine RBC Urine WBC Ur Squamous Epith Cells Urine Bacteria Ur Culture Indicated? Chlamy pneumoniae PCR Adenovirus (PCR) B. pertussis DNA (PCR) B.parapertussis DNA PCR Coronavirus OC43 (PCR) Coronavirus HKU1 (PCR) Coronavirus 229E (PCR) SARS-CoV-2 (PCR) Coronavirus NL63 (PCR) Human Metapneumovir PCR Influenza Type A (PCR) Influenza Type B (PCR) M. pneumoniae (PCR) Parainfluenza 1 (PCR) Parainfluenza 2 (PCR) Parainfluenza 3 (PCR) Parainfluenza 4 (PCR) RSV (PCR) Entero/Rhino (PCR) 01/30/22 01/30/22 01/30/22 12:15 14:17 14:17 WBC RBC Hgb Hct MCV MCH MCHC RDW Plt Count Neut % (Auto) Lymph % (Auto) [place] % (Auto) Eos % (Auto) Baso % (Auto) Lymph # (Auto) [place] # (Auto) Baso # (Auto) Total Counted Seg Neutrophils % Band Neutrophils % Lymphocytes % (Manual) Monocytes % (Manual) Neutrophils # (Manual) RBC Morphology Anisocytosis PT INR D-Dimer 2469 H ABG pH ABG pCO2 ABG pO2 ABG HCO3 ABG Total CO2 ABG O2 Saturation ABG Base Excess FiO2 Sodium Potassium Chloride Carbon Dioxide BUN Creatinine Estimated GFR BUN/Creatinine Ratio Glucose Lactate Calcium Total Bilirubin AST ALT Alkaline Phosphatase Troponin I NT-Pro-B Natriuret Pep Total Protein Albumin Globulin Albumin/Globulin Ratio Procalcitonin Ur Bilirubin Confirm Negative Urine RBC 0-1/hpf Urine WBC 5-10/hpf H Ur Squamous Epith Cells 0-1 /hpf Urine Bacteria Moderate (10-30) H Ur Culture Indicated? Specimen cultured Chlamy pneumoniae PCR Adenovirus (PCR) B. pertussis DNA (PCR) B.parapertussis DNA PCR Coronavirus OC43 (PCR) Coronavirus HKU1 (PCR) Coronavirus 229E (PCR) SARS-CoV-2 (PCR) Coronavirus NL63 (PCR) Human Metapneumovir PCR Influenza Type A (PCR) Influenza Type B (PCR) M. pneumoniae (PCR) Parainfluenza 1 (PCR) Parainfluenza 2 (PCR) Parainfluenza 3 (PCR) Parainfluenza 4 (PCR) RSV (PCR) Entero/Rhino (PCR) 01/30/22 01/31/22 19:40 00:39 WBC RBC Hgb Hct MCV MCH MCHC RDW Plt Count Neut % (Auto) Lymph % (Auto) [place] % (Auto) Eos % (Auto) Baso % (Auto) Lymph # (Auto) [place] # (Auto) Baso # (Auto) Total Counted Seg Neutrophils % Band Neutrophils % Lymphocytes % (Manual) Monocytes % (Manual) Neutrophils # (Manual) RBC Morphology Anisocytosis PT INR D-Dimer ABG pH 7.25 L* 7.26 L* ABG pCO2 59.6 H 59.0 H ABG pO2 79 L 73 L ABG HCO3 26 27 H ABG Total CO2 28 28 ABG O2 Saturation 93 L 91 L ABG Base Excess -1.0 0.0 FiO2 28 36 Sodium Potassium Chloride Carbon Dioxide BUN Creatinine Estimated GFR BUN/Creatinine Ratio Glucose Lactate Calcium Total Bilirubin AST ALT Alkaline Phosphatase Troponin I NT-Pro-B Natriuret Pep Total Protein Albumin Globulin Albumin/Globulin Ratio Procalcitonin Ur Bilirubin Confirm Urine RBC Urine WBC Ur Squamous Epith Cells Urine Bacteria Ur Culture Indicated? Chlamy pneumoniae PCR Adenovirus (PCR) B. pertussis DNA (PCR) B.parapertussis DNA PCR Coronavirus OC43 (PCR) Coronavirus HKU1 (PCR) Coronavirus 229E (PCR) SARS-CoV-2 (PCR) Coronavirus NL63 (PCR) Human Metapneumovir PCR Influenza Type A (PCR) Influenza Type B (PCR) M. pneumoniae (PCR) Parainfluenza 1 (PCR) Parainfluenza 2 (PCR) Parainfluenza 3 (PCR) Parainfluenza 4 (PCR) RSV (PCR) Entero/Rhino (PCR) [facility] Medical History Alcohol dependence Anemia Anxiety Chronic back pain (~2013) COVID-19 virus infection Degenerative joint disease (DJD) of lumbar spine (~1975) Hyperlipidemia Hypertension Osteoarthritis (~2013) Pneumonia Rheumatoid arthritis (~2009) Scoliosis (~1975) Tobacco dependence Surgical History Anesthesia History of amputation of toe (~2018) History of incision and drainage (03/19/20) Status post left foot surgery (08/23/20) Family History Father Cancer Hypertension Hyperlipidemia Mother Hypertension Brother Testicular cancer Hypertension Brother Diabetes mellitus Hypertension Hyperlipidemia Social History household members: significant other and family Tobacco & Substance Use Smoking Status: Current every day smoker Tobacco: How many years used: 40 quit status: quit date established (September 08 2020) second hand exposure: No alcohol intake: current substance use type: does not use Assessment & Plan Assessment and plan Plan Consulted to intubate patient for acute respiratory failure. Pt seen and evaluated. Tachypneic and appearing to tire, agree with indication for acute intubation Assessment & Plan narrative: Intubated with Glidescope 3, # 7.0 after Etomidate 20mg, Propofol 50mg, Succinylcholine 100mg. Grade I view. Cuff up and bilateral breath sounds. Right side clear, left side tight. CXR pending. Atraumatic. COVID-19 Result date/Date tested (Pos, Neg/Pending): 01/30/22 Time Spent With Patient Critical Care time: I spent a total of [45] minutes of critical care time on this patient's care today; this time is exclusive of procedural time. Procedure & Clinicians Study performed: Emergency Intubation Indications: Acute Respiratory Failure Procedure Notes Procedure in detail: Emergency Intubation Impression: Given 20mg Etomidate, 50mg propofol. 100mg succinylcholine, Glidescope #3 blade, Grade I view, #7.0 ETT, cuff up. Bilateral breath sounds ausculated. at 20cm at lips. Right side fairly clear, left side tight. Post-procedure Plan for aftercare: Per Kayleigh Bess and critical care team Disposition: ICU (Intubated and mechanically ventilated)
--- NOTE | 2022-01-31 03:38 | DI.RAD.S_ITS ---
PROCEDURE: XR CHEST 1V INDICATIONS: post intubation TECHNIQUE: One view of the chest was acquired. COMPARISON: [facility], CR, XR CHEST 1V, 01/31/2022, 4:45. [facility], CR, XR CHEST 2 VIEWS, 01/14/2021, 9:31. [facility], CR, XR CHEST 1V, 01/30/2022, 12:19. FINDINGS: Surgical changes and devices: An endotracheal tube is seen, with the tip 3 cm above the nona on the 2nd image. A gastric tube is seen, with the tip not within the field of view of this study, yet overlying the distal stomach. Lungs and pleura: Poorly defined opacities can be seen in both lung bases, right worse than left. Mediastinum: Mediastinal contours appear normal. Heart size is moderately enlarged. Bones and chest wall: No suspicious bony lesions. Overlying soft tissues appear unremarkable. IMPRESSION: The tip of the endotracheal tube is seen 3 cm above the nona. Opacities at both lung bases, right worse than left. Pneumonia is suspected. Note: No significant discrepancy from the preliminary report. Dictated by: Frankie Green M.D. on 01/31/2022 at 8:00 Approved by: Frankie Green M.D. on 01/31/2022 at 8:02
[2022-01-31] MEDS: propofoL 1,000 MG/100 ML VIAL 8.709 MG IV ×2 (03:55→12:17)
[2022-01-31] MEDS: fentaNYL 1,000 MCG in DEXTROSE 5% IN WATER 230 ML 12.701 MCG IV ×2 (04:05→17:11)
--- NOTE | 2022-01-31 04:45 | PM.CN.EICU ---
History of Present Illness Consult details IF CAMERA ACTIVATED, patient seen via real-time interactive audiovisual communication: Camera activated Date Patient Seen: 01/31/22 Chief complaint: Sent by Dr. murcia distress Consent obtained for tele-complaint evaluation officer care: Yes Patient Location: ICU Provider location (State): [place] Other participants/roles: RN Narrative: 62-year-old female admitted during the 01/30 day shift today for a right-sided pneumonia, COVID-19 and an PAUL. superimposed on CKD. She is incompletely vaccinated against COVID-19. Transferred to ICU ~ 0000 on 01/31 for increasing WOB and FiO2 requirements. HFNC initiated but patient was pulling it off. Was clearly confused on my initial camera activation and patient was in moderate-severe respiratory distress; I spoke to KAYCEE Bess and recommended Precedex and early elective intubation if she did not rapidly improve. Intubated ~ 0330. [facility] Medical History Alcohol dependence Anemia Anxiety Chronic back pain (~2013) COVID-19 virus infection Degenerative joint disease (DJD) of lumbar spine (~1975) Hyperlipidemia Hypertension Osteoarthritis (~2013) Pneumonia Rheumatoid arthritis (~2009) Scoliosis (~1975) Tobacco dependence Surgical History Anesthesia History of amputation of toe (~2018) History of incision and drainage (03/19/20) Status post left foot surgery (08/23/20) Family History Father Cancer Hypertension Hyperlipidemia Mother Hypertension Brother Testicular cancer Hypertension Brother Diabetes mellitus Hypertension Hyperlipidemia Social History household members: significant other and family Smoking Status: Current every day smoker Tobacco: How many years used: 40 quit status: quit date established (September 08 2020) second hand exposure: No alcohol intake: current substance use type: does not use Current Medications Current Medications Medications: Home Medications leflunomide 20 mg tablet 20 mg PO DAILY #90 tabs 12/04/20 [Rx Confirmed 01/30/22] colchicine 0.6 mg capsule See Rx Instructions .Route .COMPLEX #180 caps 12/31/20 [Rx Confirmed 01/30/22] atorvastatin 20 mg tablet 20 mg PO DAILY #90 tabs 08/20/21 [Rx Confirmed 01/30/22] hydrochlorothiazide 25 mg tablet 25 mg PO DAILY #90 tabs 08/20/21 [Rx Confirmed 01/30/22] metoprolol tartrate 50 mg tablet 50 mg PO BID #180 tabs 08/20/21 [Rx Confirmed 01/30/22] nortriptyline 50 mg capsule 50 mg PO DAILY #90 caps 08/20/21 [Rx Confirmed 01/30/22] pregabalin 150 mg capsule 150 mg PO BID #180 caps 08/20/21 [Rx Confirmed 01/30/22] venlafaxine 37.5 mg capsule,extended release 24 hr 37.5 mg PO 2XD 01/30/22 [History Confirmed 01/30/22] Visit Medications (administered) Generic Name Dose Route Start Last Admin Trade Name Freq PRN Reason Stop Dose Admin Albuterol 2.5 mg 01/30/22 16:37 01/31/22 01:15 Albuterol 2.5 Mg/3 Ml Neb (Adult) INH 2.5 mg [id number] PRN Administration Shortness Of Breath Albuterol/Ipratropium 3 ml 01/30/22 19:00 01/31/22 01:12 Albuterol/Ipratropium 3 Ml Ampul INH Not Given [id number] MELVIN Heparin Sodium (Porcine) 5,000 unit 01/30/22 21:00 01/30/22 23:03 Heparin 5,000 Unit/Ml Vial SUBCUT 5,000 unit BID MELVIN Administration Azithromycin 500 mg/ Dextrose 250 mls @ 250 mls/hr 01/30/22 15:17 01/31/22 01:30 IV Infused Q24H MELVIN Infusion Cefepime HCl 1 gm/ Sodium 100 mls @ 200 mls/hr 01/30/22 18:00 01/31/22 01:31 Chloride IV Infused Q12H MELVIN Infusion dexmedeTOMIDine in 0.9 % NaCL 400 mcg in 100 mls @ 3.629 mls/hr 01/31/22 02:45 01/31/22 02:53 Precedex IV 0.2 mcg/kg/hr TITRATE MELVIN 3.629 mls/hr Administration Protocol 0.2 MCG/KG/HR Propofol 1,000 mg in 100 mls @ 2.177 mls/hr 01/31/22 03:45 01/31/22 03:55 Propofol IV 20 mcg/kg/min TITRATE MELVIN 8.709 mls/hr Administration Protocol 5 MCG/KG/MIN Fentanyl 1,000 mcg/ Dextrose 250 mls @ 12.701 mls/hr 01/31/22 04:00 01/31/22 04:05 IV 0.7 mcg/kg/hr TITRATE MELVIN 12.701 mls/hr Administration Protocol 0.7 MCG/KG/HR Lorazepam 1 mg 01/30/22 23:21 01/30/22 23:54 Lorazepam 1 Mg Tablet PO 1 mg Q6HR PRN Administration Anxiety Metoprolol Tartrate 50 mg 01/30/22 21:00 01/30/22 23:03 Metoprolol Ir 50 Mg Tablet PO 50 mg BID MELVIN Administration Exam Vital Signs (past 8 hours): - 01/30/22 22:34 01/30/22 23:00 01/30/22 23:00 Temperature 96.5 F L 96.5 F L Pulse Rate 92 H 80 Respiratory Rate 20 16 Blood Pressure 160/86 H 160/85 H Pulse Oximetry 91 92 Oxygen Delivery Method Heated High Flow Oxygen Flow Rate 45 2 2 Fraction of Inspired Oxygen 28 01/31/22 01:35 01/31/22 02:14 Temperature 96.7 F L Pulse Rate 88 Respiratory Rate 16 Blood Pressure 160/86 H Pulse Oximetry 88 L Oxygen Delivery Method Heated High Flow Oxygen Flow Rate 2 50 Fraction of Inspired Oxygen 40 Fraction of Inspired Oxygen 40 Oxygen Delivery Method Heated High Flow Oxygen Flow Rate 50 Objective Labs Result Diagrams: 01/30/22 12:15 01/30/22 12:15 Labs: Laboratory Results - last 24 hr 01/30/22 01/30/22 01/30/22 12:11 12:15 12:15 WBC 27.8 H RBC 3.94 L Hgb 12.5 Hct 38.5 MCV 97.6 MCH 31.7 MCHC 32.4 RDW 14.6 Plt Count 244 Neut % (Auto) Not Reportable Lymph % (Auto) Not Reportable [place] % (Auto) Not Reportable Eos % (Auto) Not Reportable Baso % (Auto) Not Reportable Lymph # (Auto) Not Reportable [place] # (Auto) Not Reportable Baso # (Auto) Not Reportable Total Counted 100 Seg Neutrophils % 84.0 H Band Neutrophils % 6.0 Lymphocytes % (Manual) 4.0 L Monocytes % (Manual) 6.0 Neutrophils # (Manual) 20852 H RBC Morphology See below Anisocytosis 1+ H PT 12.5 INR 1.1 D-Dimer ABG pH ABG pCO2 ABG pO2 ABG HCO3 ABG Total CO2 ABG O2 Saturation ABG Base Excess FiO2 Sodium Potassium Chloride Carbon Dioxide BUN Creatinine Estimated GFR BUN/Creatinine Ratio Glucose Lactate Calcium Total Bilirubin AST ALT Alkaline Phosphatase Troponin I NT-Pro-B Natriuret Pep Total Protein Albumin Globulin Albumin/Globulin Ratio Procalcitonin Ur Bilirubin Confirm Urine RBC Urine WBC Ur Squamous Epith Cells Urine Bacteria Ur Culture Indicated? Chlamy pneumoniae PCR Not detected Adenovirus (PCR) Not detected B. pertussis DNA (PCR) Not detected B.parapertussis DNA PCR Not detected Coronavirus OC43 (PCR) Not detected Coronavirus HKU1 (PCR) Not detected Coronavirus 229E (PCR) Not detected SARS-CoV-2 (PCR) Detected H Coronavirus NL63 (PCR) Not detected Human Metapneumovir PCR Not detected Influenza Type A (PCR) Not detected Influenza Type B (PCR) Not detected M. pneumoniae (PCR) Not detected Parainfluenza 1 (PCR) Not detected Parainfluenza 2 (PCR) Not detected Parainfluenza 3 (PCR) Not detected Parainfluenza 4 (PCR) Not detected RSV (PCR) Not detected Entero/Rhino (PCR) Not detected 01/30/22 01/30/22 01/30/22 12:15 12:15 12:15 WBC RBC Hgb Hct MCV MCH MCHC RDW Plt Count Neut % (Auto) Lymph % (Auto) [place] % (Auto) Eos % (Auto) Baso % (Auto) Lymph # (Auto) [place] # (Auto) Baso # (Auto) Total Counted Seg Neutrophils % Band Neutrophils % Lymphocytes % (Manual) Monocytes % (Manual) Neutrophils # (Manual) RBC Morphology Anisocytosis PT INR D-Dimer ABG pH ABG pCO2 ABG pO2 ABG HCO3 ABG Total CO2 ABG O2 Saturation ABG Base Excess FiO2 Sodium 133 L Potassium 3.6 Chloride 91 L Carbon Dioxide 28 BUN 32 H Creatinine 2.03 H Estimated GFR 27 L BUN/Creatinine Ratio 15.8 Glucose 105 Lactate 1.4 Calcium 7.9 L Total Bilirubin 0.6 AST 25 ALT 25 Alkaline Phosphatase 131 H Troponin I 0.013 NT-Pro-B Natriuret Pep 1500 H Total Protein 7.3 Albumin 3.5 Globulin 3.8 Albumin/Globulin Ratio 0.9 L Procalcitonin 3.86 H Ur Bilirubin Confirm Urine RBC Urine WBC Ur Squamous Epith Cells Urine Bacteria Ur Culture Indicated? Chlamy pneumoniae PCR Adenovirus (PCR) B. pertussis DNA (PCR) B.parapertussis DNA PCR Coronavirus OC43 (PCR) Coronavirus HKU1 (PCR) Coronavirus 229E (PCR) SARS-CoV-2 (PCR) Coronavirus NL63 (PCR) Human Metapneumovir PCR Influenza Type A (PCR) Influenza Type B (PCR) M. pneumoniae (PCR) Parainfluenza 1 (PCR) Parainfluenza 2 (PCR) Parainfluenza 3 (PCR) Parainfluenza 4 (PCR) RSV (PCR) Entero/Rhino (PCR) 01/30/22 01/30/22 01/30/22 12:15 14:17 14:17 WBC RBC Hgb Hct MCV MCH MCHC RDW Plt Count Neut % (Auto) Lymph % (Auto) [place] % (Auto) Eos % (Auto) Baso % (Auto) Lymph # (Auto) [place] # (Auto) Baso # (Auto) Total Counted Seg Neutrophils % Band Neutrophils % Lymphocytes % (Manual) Monocytes % (Manual) Neutrophils # (Manual) RBC Morphology Anisocytosis PT INR D-Dimer 2469 H ABG pH ABG pCO2 ABG pO2 ABG HCO3 ABG Total CO2 ABG O2 Saturation ABG Base Excess FiO2 Sodium Potassium Chloride Carbon Dioxide BUN Creatinine Estimated GFR BUN/Creatinine Ratio Glucose Lactate Calcium Total Bilirubin AST ALT Alkaline Phosphatase Troponin I NT-Pro-B Natriuret Pep Total Protein Albumin Globulin Albumin/Globulin Ratio Procalcitonin Ur Bilirubin Confirm Negative Urine RBC 0-1/hpf Urine WBC 5-10/hpf H Ur Squamous Epith Cells 0-1 /hpf Urine Bacteria Moderate (10-30) H Ur Culture Indicated? Specimen cultured Chlamy pneumoniae PCR Adenovirus (PCR) B. pertussis DNA (PCR) B.parapertussis DNA PCR Coronavirus OC43 (PCR) Coronavirus HKU1 (PCR) Coronavirus 229E (PCR) SARS-CoV-2 (PCR) Coronavirus NL63 (PCR) Human Metapneumovir PCR Influenza Type A (PCR) Influenza Type B (PCR) M. pneumoniae (PCR) Parainfluenza 1 (PCR) Parainfluenza 2 (PCR) Parainfluenza 3 (PCR) Parainfluenza 4 (PCR) RSV (PCR) Entero/Rhino (PCR) 01/30/22 01/31/22 19:40 00:39 WBC RBC Hgb Hct MCV MCH MCHC RDW Plt Count Neut % (Auto) Lymph % (Auto) [place] % (Auto) Eos % (Auto) Baso % (Auto) Lymph # (Auto) [place] # (Auto) Baso # (Auto) Total Counted Seg Neutrophils % Band Neutrophils % Lymphocytes % (Manual) Monocytes % (Manual) Neutrophils # (Manual) RBC Morphology Anisocytosis PT INR D-Dimer ABG pH 7.25 L* 7.26 L* ABG pCO2 59.6 H 59.0 H ABG pO2 79 L 73 L ABG HCO3 26 27 H ABG Total CO2 28 28 ABG O2 Saturation 93 L 91 L ABG Base Excess -1.0 0.0 FiO2 28 36 Sodium Potassium Chloride Carbon Dioxide BUN Creatinine Estimated GFR BUN/Creatinine Ratio Glucose Lactate Calcium Total Bilirubin AST ALT Alkaline Phosphatase Troponin I NT-Pro-B Natriuret Pep Total Protein Albumin Globulin Albumin/Globulin Ratio Procalcitonin Ur Bilirubin Confirm Urine RBC Urine WBC Ur Squamous Epith Cells Urine Bacteria Ur Culture Indicated? Chlamy pneumoniae PCR Adenovirus (PCR) B. pertussis DNA (PCR) B.parapertussis DNA PCR Coronavirus OC43 (PCR) Coronavirus HKU1 (PCR) Coronavirus 229E (PCR) SARS-CoV-2 (PCR) Coronavirus NL63 (PCR) Human Metapneumovir PCR Influenza Type A (PCR) Influenza Type B (PCR) M. pneumoniae (PCR) Parainfluenza 1 (PCR) Parainfluenza 2 (PCR) Parainfluenza 3 (PCR) Parainfluenza 4 (PCR) RSV (PCR) Entero/Rhino (PCR) Assessment & Plan Assessment and plan (1) Acute respiratory failure due to COVID-19: Status: Acute Plan: -Continue dexamethasone/cefepime/azithromycin -Culture sputum -Fentanyl/propofol analgosedation with goal RASS of -2 to -3 -Follow up MRSA PCR -Fluid conservative strategy (2) Alcohol dependence: Qualifiers: Substance use status: uncomplicated Qualified Code(s): F10.20 - Alcohol dependence, uncomplicated Status: Acute Plan: -CIWA/thiamine/folate (3) PAUL (acute kidney injury): Status: Acute Plan: -Worsening; follow closely; I adjusted cefepime; adjust other meds PRN (4) Rheumatoid arthritis: Problem details: On biologics, immunosuppressed Qualifiers: Rheumatoid arthritis location: multiple sites Rheumatoid factor presence: unspecified presence Qualified Code(s): M06.9 - Rheumatoid arthritis, unspecified Status: Acute Plan: -Follow (5) Acute respiratory failure with hypoxia and hypercapnia: Status: Acute Plan: -See problem #1 (6) Abnormal urinalysis: Status: Acute Plan: -Follow up CXR (7) Elevated brain natriuretic peptide (BNP) level: Status: Acute Plan: -Consider echo Time Spent With Patient Critical Care time: I spent a total of 35 minutes of critical care time on this patient's care today; this time is exclusive of procedural time.
--- NOTE | 2022-01-31 04:56 | DI.RAD.S_ITS ---
PROCEDURE: XR CHEST 1V INDICATIONS: confirm Central line placement TECHNIQUE: One view of the chest was acquired. COMPARISON: [facility], CR, XR CHEST 2 VIEWS, 01/14/2021, 9:31. [facility], CR, XR CHEST 1V, 01/30/2022, 12:19. [facility], CR, XR CHEST 1V, 01/31/2022, 3:40. FINDINGS: Surgical changes and devices: A right-sided central line has been placed, with the tip overlying the inferior aspect of the superior vena cava, approximately 2 cm above the cavoatrial junction. An endotracheal tube is seen, with the tip 3-4 cm above the nona. A gastric tube is seen, with the tip not visible, yet traversing below the level of the diaphragm. Lungs and pleura: Poorly defined opacities are seen in both lung bases, right worse than left. Mediastinum: Mediastinal contours appear normal. Heart size is normal. Bones and chest wall: No suspicious bony lesions. Mild dextroconvex scoliotic curvature is seen. Age-appropriate bony degenerative changes are seen. Overlying soft tissues appear unremarkable. IMPRESSION: The tip of the central line can be seen overlying inferior aspect of the superior vena cava. Bilateral pneumonia, right worse than left. Note: No significant discrepancy from the preliminary report. Dictated by: Frankie Green M.D. on 01/31/2022 at 8:02 Approved by: Frankie Green M.D. on 01/31/2022 at 8:04
[2022-01-31] MEDS: HEPARIN 5,000 UNIT/ML VIAL 5000 UNIT SUBCUT ×3 (05:44→21:05)
[2022-01-31 05:52] LABS: Hematocrit 35.4 % (36-46); Hemoglobin 11.7 g/dL (12.0-16.0); Mean Corpuscular HGB Conc 32.9 % (30-36); Mean Corpuscular Hemoglobin 32.1 PG (26-34); Mean Corpuscular Volume 97.6 fL (80-100); Platelet Count 272 X10^3/uL (150-400); Red Blood Cell Count 3.63 X10^6/uL (4.0-5.2); Red Cell Distribution Width 14.9 % (11.6-14.8)
[2022-01-31 06:00] LABS: Alanine Aminotransferase 24 IU/L (<35); Albumin 3.3 g/dL (3.5-5.0); Albumin Globulin Ratio 0.9 (1.0-2.8); Alkaline Phosphatase 143 U/L (38-126); Aspartate Aminotransferase 26 IU/L (14-36); BUN Creatinine Ratio 26.2 (6-22); Bilirubin Total 0.6 mg/dL (0.2-1.3); Blood Urea Nitrogen 34 mg/dL (7-17); Calcium 7.3 mg/dL (8.4-10.2); Carbon Dioxide 26 mmol/L (22-32); Chloride 94 mmol/L (98-107); Estimated Glomerular Filt Rate 46 mL/min (>60); Globulin 3.5 g/dL (1.7-4.1); Glucose 143 mg/dL (80-110); HEMOLYSIS 21 (0-50); Magnesium 1.6 mg/dL (1.6-2.3); Potassium 3.2 mmol/L (3.4-5.1); Sodium 135 mmol/L (137-145); Total Protein 6.8 g/dL (6.3-8.2)
--- NOTE | 2022-01-31 06:13 | PC.NURSE ---
Pt. transferred from acute care to ICU for increasing 02 demand. Pt. arrived to the unit at 0200 am on heated hiflow NC tripoding, very short of breath, restless and confused. Pt. tried to take NC off and trying to get OOB. Dr. Cherry was consulted and due to pt's worsening respiratory status and pt. not following commands, pt was intubated roughly around 0400 by anesthesiologist. Informed anesthesiologist that we need a central line since pt. only has one line but anesthesiologist adamantly stated that she will not because it's only 3 in the morning and she will be back in the morning to do it. Myself and [place] [employer]ER HELPER tried starting an IV line with no luck. Pt. has few gtts for sedation and really needed another line. ER MD came up and inserted a right IJ central line. Pt. is currently on vent support on Propofol, fentanyl and precedex gtt. Pt. is very diaphoretic, lungs tight and diminished, SR, incontinent of stool. While providing care to pt., noted that pt. has redness to bilateral groin and sacrum is reddened and excoriated. Cleansed area well and will be applying barrier cream. Pt. bridged with pillows and has bilateral wrist restraints.
[2022-01-31 06:34] LABS: Add Manual Diff / Slide Review YES
[2022-01-31 07:36] LABS: Neutrophils Absolute Manual 26100 /uL (3000-5900); Total Cells Counted 100
[2022-01-31 07:37] LABS: RBC Morphology Normal Morphology
--- NOTE | 2022-01-31 07:50 | DI.ECHO.S_ITS ---
[facility]---------+ [facility] +---------+ : : [address] : : : : [id number] : : : : Phone: [phone]+ Echocardiogram Report + + :Name: BRIGITTE HARE Study Date: 02/02/2022 Height: 65.5 in: :[facility] ReadingLocation: Weight: 161 lb : : Gender: Female BSA: 1.8 m2 : :: 1960 Age: 62 yrs BP: 128/73 mmHg: :Reason For Study: PERICARDIAL EFFUSION : :Ordering Physician: LUDIN, : :BETSEY Performed By: Daphne Walden : :Referring: BETSEY NOLAND : + + Interpretation Summary Techincally difficult study, patient on vent and would get irritated with pressure duing exam. Sinus tachycardia. Normal LV size and wall thickness; hyperdynamic LV function estimated at 65- 75%. Normal chamber sizes. No valvular abnormalities. No prior study available for comparison. No pericardial effusion present. Procedure: A two-dimensional transthoracic echocardiogram with color flow and Doppler was performed in limited views only. The study quality was technically difficult. There is no prior echocardiogram noted for this patient. The patient was in sinus tachycardia with heart rates between 106-111 bpm during the exam. Left Ventricle: The left ventricle is normal in size and wall thickness. Left ventricular ejection fraction is estimated to be 70 +/- 5%. The left ventricle is hyperdynamic. Right Ventricle: The right ventricle is normal in size and function. Atria: The left atrial size is normal. Right atrium not well visualized. The right atrium grossly appears normal in size. There is no Doppler evidence for an interatrial shunt. Mitral Valve: The mitral valve is grossly normal. There is no mitral regurgitation noted. Aortic Valve: The aortic valve is not well visualized. There is no aortic valve stenosis. No aortic regurgitation is present. Tricuspid Valve: The tricuspid valve is not well visualized, but is grossly normal. There is a trace or physiologic amount of tricuspid regurgitation. Pulmonic Valve: The pulmonic valve is not well visualized. Great Vessels: The aortic root is not well visualized. The dimensions of the ascending aorta are normal. Inspiratory collapse cannot be assessed because of mechanical ventilation, thus CVP cannot be estimated.. Pericardium/ Pleura There is no pericardial effusion. There is no pleural effusion. MMode/2D Measurements & Calculations LVIDd: 3.6 cm LVOT diam: 2.2 cm LVIDs: 2.3 cm asc Aorta Diam: 2.9 cm FS: 37.9 % IVSd: 1.0 cm LVPWd: 0.90 cm LV santos. diameter/BSA (cm/m^2): 2.0 LV sys. diameter/BSA (cm/m^2): 1.2 LA A2 area: 13.9 cm2 RVD1 (basal): 3.1 cm LA A4 area: 8.9 cm2 RVD2 (mid): 3.5 cm LA length (vol): 4.1 cm TAPSE: 1.9 cm LA vol: 25.3 ml LA vol index: 13.9 ml/m2 Doppler Measurements & Calculations Ao V2 max: 134.4 cm/sec LVOT Max Fadi: 134.4 cm/sec Ao V2 mean: 95.9 cm/sec LV V1 max P.2 mmHg Ao max P.2 mmHg LV V1 VTI: 20.0 cm Ao mean P.1 mmHg ANNA(I,D): 3.5 cm2 Ao V2 VTI: 22.0 cm ANNA(V,D): 3.9 cm2 sev ratio: 0.91 ANNA indexed to BSA (cm^2/m^2): 1.9 MV E max fadi: 61.1 cm/sec PA V2 max: 136.6 cm/sec MV A max fadi: 93.5 cm/sec PA V2 mean: 88.1 cm/sec MV E/A: 0.65 PA mean P.5 mmHg Med Peak E' Fadi: 4.3 cm/sec PA pr(Accel): 39.6 mmHg E/E' med: 14.3 Lat Peak E' Fadi: 6.6 cm/sec E/E' lat: 9.3 E/e' average: 11.8 MV dec time: 0.17 sec SV(LVOT): 77.9 ml Electronically signed by: Fanny Sloan M.D. on Reading Physician:02/02/2022 04:14 PM
[2022-01-31] MEDS: NOREPINEPHRINE BITARTRATE/D5W 4 MG/250 ML PLAST..BAG 30 MG IV (07:58)
[2022-01-31] MEDS: dexmedeTOMIDine in 0.9 % NaCL 400 MCG/100 ML PLAST..BAG 10.886 MCG IV (08:12)
--- NOTE | 2022-01-31 09:31 | PM.ICURNDS ---
- Date Patient Seen: 01/31/22 Time Patient Seen: 09:32 :: This patient was seen via real time interactive two-way audiovisual telecommunication. Note: Patient is intubated and sedated. Labs and imaging reviewed. Currently sedated with propofol and fentanyl. Started on levophed to maintain MAP goal > 65. FiO2 titrated down to 40% while on PEEP 8. Clinical presentation suggestive of COVID PNA w/ superimposed bacterial PNA. Added vancomycin for MRSA coverage. Follow up cx data. Daily SAT and SBT. Seek early mobility when hypoxemia and encephalopathy improves. D/w pharmacist and bedside RN Gloria.
[2022-01-31] MEDS: NICOTINE 14 PATCH 14 MG TOP (09:48)
[2022-01-31] MEDS: FOLIC ACID 1 MG TABLET PO (09:48)
[2022-01-31] MEDS: VENLAFAXINE ER 37.5 MG CAP PO ×2 (09:49→20:07)
[2022-01-31] MEDS: MULTIVITAMIN 1 TABLET 1 TAB PO (09:49)
[2022-01-31] MEDS: DEXAMETHASONE 10 MG/ML VIAL 6 MG IV (09:49)
[2022-01-31] MEDS: MAGNESIUM SULFATE 2 GM/50 ML PIGGYBACK IV (09:53)
[2022-01-31] MEDS: POTASSIUM CHLORIDE IN WATER 10 MEQ/100 ML PIGGYBACK 100 MEQ IV ×4 (09:54→12:16)
[2022-01-31 10:44] LABS: Fractionated Inspired Oxygen 60; HCO3 ABG 28 mmol/L (22-26); Oxygen Saturation ABG 96 % (95-100); PO2 ABG 94 mmHg (80-100); TCO2 ABG 29 mmol/L (21-31); pH ABG 7.32 (7.35-7.45)
[2022-01-31] MEDS: VANCOMYCIN PER PHARMACY 1 REQUEST MISC (11:26)
[2022-01-31] MEDS: REMDESIVIR 200 MG in SODIUM CHLORIDE 0.9% 210 ML 250 MG IV (12:20)
--- NOTE | 2022-01-31 13:17 | PC.NURSE ---
Addendum entered by Barbara Pérez R.N. 01/31/22 18:16: 1810 Pt became extremely agitated, was able to disconnect vent from ETT, was able to reconnect, titrated up on her Propofol and Fentanyl, pt was extremely tremulous as observed by this nurse and RT Victor Hugo. Provider notified, no new orders at this time. Original Note: Day shift note: Pt. is currently ventilated FiO2 40% TV 360 RR 20 PEEP 8, gtts are Propofol, fentanyl, precedex, norepi, see emar for current dosing. Pt. 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 It is noted that pt. has redness to bilateral groin and sacrum is reddened and excoriated. Cleansed area well and will be applying barrier cream. Pt. bridged with pillows and has bilateral wrist restraints, givens catheter patent and draining clear yellow urine, OG to LIS, turning pt Q2hr, bed low and locked, call light within reach, will continue to monitor.
[2022-01-31 14:14] LABS: Fractionated Inspired Oxygen 40; HCO3 ABG 26 mmol/L (22-26); Oxygen Saturation ABG 96 % (95-100); PCO2 ABG 49.2 mmHg (35-45); PO2 ABG 91 mmHg (80-100); TCO2 ABG 28 mmol/L (21-31); pH ABG 7.34 (7.35-7.45)
[2022-01-31 14:24] LABS: Acinetobacter baumannii Not Detected (Not Detect); Candida albicans Not Detected (Not Detect); Candida glabrata Not Detected (Not Detect); Candida krusei Not Detected (Not Detect); Candida parapsilosis Not Detected (Not Detect); Candida tropicalis Not Detected (Not Detect); E. coli Not Detected (Not Detect); Enterobacter cloacae complex Not Detected (Not Detect); Enterobacteriaceae species Not Detected (Not Detect); Enterococcus species Not Detected (Not Detect); Haemophilus influenzae Not Detected (Not Detect); Listeria monocytogenes Not Detected (Not Detect); Methicillin-resistant gene Not Detected (Not Detect); Neisseria meningitidis Not Detected (Not Detect); Proteus species Not Detected (Not Detect); Pseudomonas aeruginosa Not Detected (Not Detect); Serratia marcescens Not Detected (Not Detect); Staphylococcus species Detected (Not Detect); Streptococcus agalactiae (Gr B Not Detected (Not Detect); Streptococcus pneumonia Not Detected (Not Detect); Streptococcus pyogenes (Gr A) Not Detected (Not Detect); Streptococcus species Not Detected (Not Detect)
[2022-01-31] MEDS: VANCOMYCIN 1,000 MG/200 ML PIGGYBACK 200 MG IV (14:44)
[2022-01-31] MEDS: AZITHROMYCIN 500 MG in DEXTROSE 5% IN WATER 250 ML 250 MG IV (14:45)
[2022-01-31] MEDS: THIAMINE 500 MG in SODIUM CHLORIDE 0.9% 100 ML 420 MG IV ×2 (14:47→20:08)
--- NOTE | 2022-01-31 15:16 | CM.DANOTE ---
Initial DCP Assessment Note Initial assessment completed based on available information in chart Pt is a 62 yo female, resident of [place], presents with increasing difficulty in breathing over the last 3 days, admitted for management of Acute hypoxemic respiratory failure, COVID+, CIWA, RA, anxiety Patient lives home w/ SO, hx left foot ulceration/osteomyelitis; hx of [facility] for IV abx and outpatient wound care at Patient decompensated this morning and currently vented, incontinent, sedated, givens. PCP: Lala Partida Payer: Fidel/EMILY CM team will plan to follow closely as medical POC unfolds. Social service consult placed yesterday afternoon. GLENN Wadsworth Discharge Planning/Care Management CM Discharge Assessment Start: 01/31/22 15:12 Freq: Status: Active Protocol: Document 01/31/22 15:12 CANDI (Rec: 01/31/22 15:16 CANDI [id number]) Discharge Planning Assessment Assigned Premium Auditor GLENN Escobar DPOA/Assigned Designee Name Saqib Saleh, partner Contact Information [phone] Advance Directives? No Advance Directives on File No History Provided By Patient,Significant Other, Medical Record Prior Living Arrangements House Household Members significant other,family Type of transporation used prior to Drives own vehicle admit Independent with ADL's Yes Is patient alert and oriented? Yes
[2022-01-31] MEDS: dexmedeTOMIDine in 0.9 % NaCL 400 MCG/100 ML PLAST..BAG 18.144 MCG IV (15:19)
[2022-01-31] MEDS: CEFEPIME 1 GM in SODIUM CHLORIDE 0.9% 100 ML IV (15:56)
--- NOTE | 2022-01-31 17:29 | PM.PN.1 ---
Subjective Subjective Date Patient Seen: 01/31/22 Time Patient Seen: 08:00 Interval history: Overnight she had confusion and agitation and worsening shortness of breath. She was intubated overnight. CVL placed. She was started on pressors. Exam Vital Signs (past 8 hours): - 01/31/22 09:30 01/31/22 09:30 01/31/22 09:45 Temperature Pulse Rate 112 H Respiratory Rate 20 Blood Pressure 202/82 H 112/58 L Pulse Oximetry 78 L Oxygen Delivery Method 01/31/22 09:45 01/31/22 10:00 01/31/22 10:00 Temperature Pulse Rate 97 H 95 H Respiratory Rate 20 20 Blood Pressure 123/65 Pulse Oximetry 96 97 Oxygen Delivery Method 01/31/22 10:15 01/31/22 10:15 01/31/22 10:30 Temperature Pulse Rate 93 H Respiratory Rate 20 Blood Pressure 127/65 128/67 Pulse Oximetry 98 Oxygen Delivery Method 01/31/22 10:30 01/31/22 10:45 01/31/22 10:45 Temperature Pulse Rate 95 H 93 H Respiratory Rate 20 20 Blood Pressure 114/61 Pulse Oximetry 98 98 Oxygen Delivery Method 01/31/22 11:00 01/31/22 11:00 01/31/22 11:00 Temperature Pulse Rate 94 H Respiratory Rate 20 Blood Pressure 112/63 Pulse Oximetry 99 98 Oxygen Delivery Method Mechanical Ventilation 01/31/22 11:15 01/31/22 11:15 01/31/22 11:30 Temperature Pulse Rate 93 H Respiratory Rate 20 Blood Pressure 112/61 121/65 Pulse Oximetry 99 Oxygen Delivery Method 01/31/22 11:30 01/31/22 11:45 01/31/22 11:45 Temperature Pulse Rate 93 H 93 H Respiratory Rate 20 20 Blood Pressure 101/59 L Pulse Oximetry 99 99 Oxygen Delivery Method 01/31/22 12:00 01/31/22 12:00 01/31/22 12:15 Temperature Pulse Rate 94 H Respiratory Rate 20 Blood Pressure 98/58 L 103/58 L Pulse Oximetry 99 Oxygen Delivery Method 01/31/22 12:15 01/31/22 12:30 01/31/22 12:30 Temperature Pulse Rate 93 H 94 H Respiratory Rate 20 20 Blood Pressure 100/57 L Pulse Oximetry 99 98 Oxygen Delivery Method 01/31/22 12:45 01/31/22 12:45 01/31/22 13:00 Temperature Pulse Rate 101 H Respiratory Rate 20 Blood Pressure 95/54 L 101/56 L Pulse Oximetry 96 Oxygen Delivery Method 01/31/22 13:00 01/31/22 13:27 01/31/22 13:15 Temperature Pulse Rate 102 H Respiratory Rate 20 Blood Pressure 98/55 L Pulse Oximetry 97 Oxygen Delivery Method Mechanical Ventilation 01/31/22 13:15 01/31/22 13:30 01/31/22 13:30 Temperature Pulse Rate 101 H 101 H Respiratory Rate 20 20 Blood Pressure 102/57 L Pulse Oximetry 97 97 Oxygen Delivery Method 01/31/22 13:45 01/31/22 13:45 01/31/22 14:00 Temperature Pulse Rate 109 H 99 H Respiratory Rate 31 H 20 Blood Pressure 170/79 H Pulse Oximetry 96 92 Oxygen Delivery Method 01/31/22 14:01 01/31/22 14:01 01/31/22 14:15 Temperature Pulse Rate 99 H Respiratory Rate 20 Blood Pressure 89/52 L 74/50 L Pulse Oximetry 93 Oxygen Delivery Method 01/31/22 14:15 01/31/22 14:30 01/31/22 14:30 Temperature Pulse Rate 99 H 96 H Respiratory Rate 20 20 Blood Pressure 103/61 Pulse Oximetry 100 100 Oxygen Delivery Method 01/31/22 15:00 01/31/22 14:45 01/31/22 14:45 Temperature Pulse Rate 97 H Respiratory Rate 20 Blood Pressure 97/59 L Pulse Oximetry 100 100 Oxygen Delivery Method Mechanical Ventilation 01/31/22 15:00 01/31/22 15:00 01/31/22 15:15 Temperature Pulse Rate 96 H Respiratory Rate 22 Blood Pressure 113/68 111/64 Pulse Oximetry 100 Oxygen Delivery Method 01/31/22 15:15 01/31/22 15:30 01/31/22 15:30 Temperature Pulse Rate 100 H 98 H Respiratory Rate 22 22 Blood Pressure 116/67 Pulse Oximetry 100 100 Oxygen Delivery Method 01/31/22 15:45 01/31/22 15:45 01/31/22 16:00 Temperature Pulse Rate 97 H Respiratory Rate 22 Blood Pressure 114/67 109/64 Pulse Oximetry 100 Oxygen Delivery Method 01/31/22 16:00 01/31/22 16:15 01/31/22 16:15 Temperature Pulse Rate 100 H 97 H Respiratory Rate 22 22 Blood Pressure 108/62 Pulse Oximetry 100 100 Oxygen Delivery Method 01/31/22 16:30 01/31/22 16:30 01/31/22 16:45 Temperature Pulse Rate 96 H 96 H Respiratory Rate 22 22 Blood Pressure 107/63 Pulse Oximetry 100 100 Oxygen Delivery Method 01/31/22 16:45 01/31/22 17:00 01/31/22 17:00 Temperature 97.8 F Pulse Rate Respiratory Rate Blood Pressure 106/63 105/60 Pulse Oximetry Oxygen Delivery Method 01/31/22 17:00 01/31/22 17:14 01/31/22 17:15 Temperature Pulse Rate 96 H 95 H Respiratory Rate 22 24 Blood Pressure 106/63 Pulse Oximetry 100 99 Oxygen Delivery Method Fraction of Inspired Oxygen 40 Oxygen Delivery Method Mechanical Ventilation Oxygen Flow Rate 50 Narrative Exam Narrative: GEN: intubated HEENT: moist mucous membranes, PERRL NECK: trachea midline, no JVD PULM: wheezes, and coarse breath sounds bilaterally CV: regular rate and rhythm, no murmurs ABD: soft, nontender, nondistended, no organomegaly EXT: warm and well perfused NEURO: awake, alert, oriented Objective Labs Result Diagrams: 01/31/22 04:00 01/31/22 04:00 Labs: Laboratory Results - last 24 hr 01/30/22 01/30/22 01/30/22 12:15 13:05 19:40 WBC RBC Hgb Hct MCV MCH MCHC RDW Plt Count Neut % (Auto) Lymph % (Auto) [place] % (Auto) Eos % (Auto) Baso % (Auto) Lymph # (Auto) [place] # (Auto) Baso # (Auto) Total Counted Seg Neutrophils % Band Neutrophils % Lymphocytes % (Manual) Monocytes % (Manual) Neutrophils # (Manual) RBC Morphology D-Dimer 2469 H ABG pH 7.25 L* ABG pCO2 59.6 H ABG pO2 79 L ABG HCO3 26 ABG Total CO2 28 ABG O2 Saturation 93 L ABG Base Excess -1.0 FiO2 28 Sodium Potassium Chloride Carbon Dioxide BUN Creatinine Estimated GFR BUN/Creatinine Ratio Glucose Calcium Magnesium Total Bilirubin AST ALT Alkaline Phosphatase Total Protein Albumin Globulin Albumin/Globulin Ratio Nasal Screen MRSA (PCR) A. baumannii (PCR) Not detected Rosie albicans (PCR) Not detected C. glabrata (PCR) Not detected C. krusei (PCR) Not detected C. parapsilosis (PCR) Not detected C. tropicalis (PCR) Not detected Enterobacteriac sp PCR Not detected E. cloacae complex PCR Not detected Enterococcus sp PCR Not detected E. coli (PCR) Not detected H. influenzae (PCR) Not detected Klebsiella oxytoca PCR Not detected Klebsiella pneumoniae Not detected List. monocytogenes PCR Not detected N. meningitidis (PCR) Not detected Proteus species (PCR) Not detected Serratia marcescens PCR Not detected Staphylococcus sp PCR Detected H Staph aureus (PCR) Not detected mecA-Methicil Res Gene Not detected Streptococcus sp PCR Not detected Group A Strep (PCR) Not detected Strep agalactiae (PCR) Not detected Strep pneumoniae (PCR) Not detected P. aeruginosa (PCR) Not detected Jaison/B-Vanco Res Genes Not Reportable KPC-Carbap Res Gene PCR Not Reportable 01/31/22 01/31/22 01/31/22 00:39 04:00 04:00 WBC 29.0 H RBC 3.63 L Hgb 11.7 L Hct 35.4 L MCV 97.6 MCH 32.1 MCHC 32.9 RDW 14.9 H Plt Count 272 Neut % (Auto) Not Reportable Lymph % (Auto) Not Reportable [place] % (Auto) Not Reportable Eos % (Auto) Not Reportable Baso % (Auto) Not Reportable Lymph # (Auto) Not Reportable [place] # (Auto) Not Reportable Baso # (Auto) Not Reportable Total Counted 100 Seg Neutrophils % 84.0 H Band Neutrophils % 6.0 Lymphocytes % (Manual) 5.0 L Monocytes % (Manual) 5.0 Neutrophils # (Manual) 02912 H RBC Morphology Normal morphology D-Dimer ABG pH 7.26 L* ABG pCO2 59.0 H ABG pO2 73 L ABG HCO3 27 H ABG Total CO2 28 ABG O2 Saturation 91 L ABG Base Excess 0.0 FiO2 36 Sodium Cancelled Potassium Cancelled Chloride Cancelled Carbon Dioxide Cancelled BUN Cancelled Creatinine Cancelled Estimated GFR Cancelled BUN/Creatinine Ratio Cancelled Glucose Cancelled Calcium Cancelled Magnesium Total Bilirubin AST ALT Alkaline Phosphatase Total Protein Albumin Globulin Albumin/Globulin Ratio Nasal Screen MRSA (PCR) A. baumannii (PCR) Rosie albicans (PCR) C. glabrata (PCR) C. krusei (PCR) C. parapsilosis (PCR) C. tropicalis (PCR) Enterobacteriac sp PCR E. cloacae complex PCR Enterococcus sp PCR E. coli (PCR) H. influenzae (PCR) Klebsiella oxytoca PCR Klebsiella pneumoniae List. monocytogenes PCR N. meningitidis (PCR) Proteus species (PCR) Serratia marcescens PCR Staphylococcus sp PCR Staph aureus (PCR) mecA-Methicil Res Gene Streptococcus sp PCR Group A Strep (PCR) Strep agalactiae (PCR) Strep pneumoniae (PCR) P. aeruginosa (PCR) Jaison/B-Vanco Res Genes KPC-Carbap Res Gene PCR 01/31/22 01/31/22 01/31/22 04:00 06:03 06:03 WBC RBC Hgb Hct MCV MCH MCHC RDW Plt Count Neut % (Auto) Lymph % (Auto) [place] % (Auto) Eos % (Auto) Baso % (Auto) Lymph # (Auto) [place] # (Auto) Baso # (Auto) Total Counted Seg Neutrophils % Band Neutrophils % Lymphocytes % (Manual) Monocytes % (Manual) Neutrophils # (Manual) RBC Morphology D-Dimer ABG pH ABG pCO2 ABG pO2 ABG HCO3 ABG Total CO2 ABG O2 Saturation ABG Base Excess FiO2 Sodium 135 L Potassium 3.2 L Chloride 94 L Carbon Dioxide 26 BUN 34 H Creatinine 1.30 H Estimated GFR 46 L BUN/Creatinine Ratio 26.2 H Glucose 143 H Calcium 7.3 L Magnesium 1.6 Total Bilirubin 0.6 AST 26 ALT 24 Alkaline Phosphatase 143 H Total Protein 6.8 Albumin 3.3 L Globulin 3.5 Albumin/Globulin Ratio 0.9 L Nasal Screen MRSA (PCR) Cancelled Negative for mrsa A. baumannii (PCR) Rosie albicans (PCR) C. glabrata (PCR) C. krusei (PCR) C. parapsilosis (PCR) C. tropicalis (PCR) Enterobacteriac sp PCR E. cloacae complex PCR Enterococcus sp PCR E. coli (PCR) H. influenzae (PCR) Klebsiella oxytoca PCR Klebsiella pneumoniae List. monocytogenes PCR N. meningitidis (PCR) Proteus species (PCR) Serratia marcescens PCR Staphylococcus sp PCR Staph aureus (PCR) mecA-Methicil Res Gene Streptococcus sp PCR Group A Strep (PCR) Strep agalactiae (PCR) Strep pneumoniae (PCR) P. aeruginosa (PCR) Jaison/B-Vanco Res Genes KPC-Carbap Res Gene PCR 01/31/22 01/31/22 08:25 13:49 WBC RBC Hgb Hct MCV MCH MCHC RDW Plt Count Neut % (Auto) Lymph % (Auto) [place] % (Auto) Eos % (Auto) Baso % (Auto) Lymph # (Auto) [place] # (Auto) Baso # (Auto) Total Counted Seg Neutrophils % Band Neutrophils % Lymphocytes % (Manual) Monocytes % (Manual) Neutrophils # (Manual) RBC Morphology D-Dimer ABG pH 7.32 L 7.34 L ABG pCO2 54.0 H 49.2 H ABG pO2 94 91 ABG HCO3 28 H 26 ABG Total CO2 29 28 ABG O2 Saturation 96 96 ABG Base Excess 2.0 1.0 FiO2 60 40 Sodium Potassium Chloride Carbon Dioxide BUN Creatinine Estimated GFR BUN/Creatinine Ratio Glucose Calcium Magnesium Total Bilirubin AST ALT Alkaline Phosphatase Total Protein Albumin Globulin Albumin/Globulin Ratio Nasal Screen MRSA (PCR) A. baumannii (PCR) Rosie albicans (PCR) C. glabrata (PCR) C. krusei (PCR) C. parapsilosis (PCR) C. tropicalis (PCR) Enterobacteriac sp PCR E. cloacae complex PCR Enterococcus sp PCR E. coli (PCR) H. influenzae (PCR) Klebsiella oxytoca PCR Klebsiella pneumoniae List. monocytogenes PCR N. meningitidis (PCR) Proteus species (PCR) Serratia marcescens PCR Staphylococcus sp PCR Staph aureus (PCR) mecA-Methicil Res Gene Streptococcus sp PCR Group A Strep (PCR) Strep agalactiae (PCR) Strep pneumoniae (PCR) P. aeruginosa (PCR) Jaison/B-Vanco Res Genes KPC-Carbap Res Gene PCR [facility] Medical History Alcohol dependence Anemia Anxiety Chronic back pain (~2013) COVID-19 virus infection Degenerative joint disease (DJD) of lumbar spine (~1975) Hyperlipidemia Hypertension Osteoarthritis (~2013) Pneumonia Rheumatoid arthritis (~2009) Scoliosis (~1975) Tobacco dependence Surgical History Anesthesia History of amputation of toe (~2018) History of incision and drainage (03/19/20) Status post left foot surgery (08/23/20) Family History Father Cancer Hypertension Hyperlipidemia Mother Hypertension Brother Testicular cancer Hypertension Brother Diabetes mellitus Hypertension Hyperlipidemia Social History household members: significant other and family Smoking Status: Current every day smoker Tobacco: How many years used: 40 quit status: quit date established (September 08 2020) second hand exposure: No alcohol intake: current substance use type: does not use Assessment & Plan Assessment & Plan narrative: 1. Acute hypoxemic respiratory failure -patient with COVID positive, wheezes on exam consistent with possible COPD exacerbation -initial wbc 27.8, procal >3 -xray also shows infiltrates consistent with pneumonia -intubated early on 01/31 -continue IV antibiotics and wean as able -follow up cultures -continue steroids with dexamethasone -PAUL improved, start remdesivir -encourage tobacco cessation -suspect elevated d-dimer secondary to covid 2. Shock, septic -secondary to pneumonia -continue pressors -follow up cultures -broad spectrum antibiotics with vanco, cefepime, and azithro for now 3. PAUL, improving -baseline unknown -trend daily -hold hctz 4. Acute encephalopathy -secondary to sepsis and alcohol withdrawal -treat sepsis as above -for alcohol withdrawal on high dose thiamine, MVI, folate -on phenobarb for sedation 5. Rheumatoid arthritis -hold leflunomide 6. Hypertension -continue metoprolol 7. Anxiety -continue venlafaxine CODE: Full Proxy: Saqib Saleh, life partner I have utilized all available resources to reconcile the patient's home medications. Time Spent With Patient Critical Care time: I spent a total of [] minutes of critical care time on this patient's care today; this time is exclusive of procedural time.
[2022-01-31] MEDS: MIDAZOLAM 50 MG in DEXTROSE 5% IN WATER 240 ML 25 MG IV (19:57)
[2022-01-31] MEDS: PHENobarbital 65 MG/ML VIAL 260 MG IV (19:57)
--- NOTE | 2022-01-31 20:32 | PM.ICURNDS ---
- Date Patient Seen: 01/31/22 Time Patient Seen: 20:32 :: This patient was seen via real time interactive two-way audiovisual telecommunication. Note: Patient remains agitated despite being on propofol, precedex, and fentanyl. Added versed push and will start infusion if remains agitated. PEEP down to 6 and FiO2 38%. Urine cx positive for GNR and blood cx positive for staph aureus. On cefepime and vancomycin. Cont titrating sedation to seek RASS goal -1 to 0. D/w RN at bedside.
[2022-01-31] MEDS: propofoL 1,000 MG/100 ML VIAL 10.886 MG IV (21:58)
[2022-02-01] VITALS (84 sets, daily range): BP systolic 103–196; BP diastolic 57–141; PULSE 100–133; RESP 15–24; TEMP 37.2–37.4; O2SAT 88–100
[2022-02-01] MEDS: CEFEPIME 1 GM in SODIUM CHLORIDE 0.9% 100 ML IV ×2 (03:07→15:48)
[2022-02-01] MEDS: HEPARIN 5,000 UNIT/ML VIAL 5000 UNIT SUBCUT ×3 (05:21→21:51)
[2022-02-01 05:23] LABS: Add Manual Diff / Slide Review NO; Basophils Absolute Auto 0 /uL (0-100); Basophils Percent Auto 0.3 % (0-2); Eosinophils Absolute Auto 0 /uL (0-450); Eosinophils Percent Auto 0.1 % (2-4); Hematocrit 33.3 % (36-46); Hemoglobin 10.9 g/dL (12.0-16.0); Lymphocytes Absolute Auto 1400 /uL (1100-4500); Lymphocytes Percent Auto 9.4 % (25-40); Mean Corpuscular HGB Conc 32.8 % (30-36); Mean Corpuscular Hemoglobin 31.5 PG (26-34); Monocytes Absolute Auto 1300 /uL (0-900); Neutrophils Absolute Auto 12200 /uL (1500-7000); Neutrophils Percent Auto 81.2 % (50-75); Platelet Count 279 X10^3/uL (150-400); Red Blood Cell Count 3.47 X10^6/uL (4.0-5.2); Red Cell Distribution Width 14.3 % (11.6-14.8)
[2022-02-01 05:32] LABS: Alanine Aminotransferase 18 IU/L (<35); Albumin Globulin Ratio 0.9 (1.0-2.8); Alkaline Phosphatase 124 U/L (38-126); Aspartate Aminotransferase 18 IU/L (14-36); BUN Creatinine Ratio 26.7 (6-22); Bilirubin Total 0.5 mg/dL (0.2-1.3); Blood Urea Nitrogen 32 mg/dL (7-17); Calcium 7.2 mg/dL (8.4-10.2); Carbon Dioxide 24 mmol/L (22-32); Chloride 97 mmol/L (98-107); Estimated Glomerular Filt Rate 51 mL/min (>60); Globulin 3.5 g/dL (1.7-4.1); Glucose 116 mg/dL (80-110); HEMOLYSIS < 15 (0-50); Magnesium 2.4 mg/dL (1.6-2.3); Sodium 131 mmol/L (137-145); Total Protein 6.5 g/dL (6.3-8.2)
[2022-02-01] MEDS: propofoL 1,000 MG/100 ML VIAL 13.064 MG IV ×2 (05:39→18:46)
[2022-02-01] MEDS: MIDAZOLAM 50 MG in DEXTROSE 5% IN WATER 240 ML 30 MG IV ×3 (05:45→20:41)
--- NOTE | 2022-02-01 06:33 | PC.NURSE ---
0600- Shift note- Patient wakes very agitated and combative. Gtts titrated to achieve RASS -3. Patient has moderate oral secretions but small amount of secretions via ETT. Patient broncho-spasms with any stimulation. UOP adequate. K+ 3.0 MD notified and orders rec. Lungs remain dim at the bases and coarse with wheezes intermittedly. Patient has been tachycardic all shift. Will monitor.
[2022-02-01] MEDS: POTASSIUM CHLORIDE IN WATER 10 MEQ/100 ML PIGGYBACK 100 MEQ IV ×4 (06:52→09:31)
[2022-02-01] MEDS: fentaNYL 1,000 MCG in DEXTROSE 5% IN WATER 230 ML 18.144 MCG IV ×2 (07:48→20:42)
[2022-02-01] MEDS: ALBUTEROL/IPRATROPIUM 3 ML AMPUL INH ×4 (07:56→21:32)
[2022-02-01] MEDS: VANCOMYCIN 1,000 MG/200 ML PIGGYBACK 200 MG IV (08:09)
[2022-02-01] MEDS: MULTIVITAMIN 1 TABLET 1 TAB PO (09:19)
[2022-02-01] MEDS: FOLIC ACID 1 MG TABLET PO (09:19)
[2022-02-01] MEDS: THIAMINE 500 MG in SODIUM CHLORIDE 0.9% 100 ML 420 MG IV ×3 (09:19→21:50)
[2022-02-01] MEDS: NICOTINE 14 PATCH 14 MG TOP (09:19)
[2022-02-01] MEDS: VENLAFAXINE ER 37.5 MG CAP PO ×2 (09:19→21:50)
[2022-02-01] MEDS: DEXAMETHASONE 10 MG/ML VIAL 6 MG IV (09:20)
--- NOTE | 2022-02-01 10:25 | P.TELICUPN_ITS ---
Subjective Subjective IF CAMERA ACTIVATED, patient seen via real-time interactive audiovisual communication: Camera activated Date Patient Seen: 02/01/22 Consent obtained for tele-runner on care: Yes Patient Location: ICU Provider location (State): [place] Other participants/roles: Bedside RN Interval history: Went into DTs yesterday and started on versed gtt. Sedation -> propofol 35 mcg, fentanyl 1 mcg/kg/hr, and versed 6 mg/hr. Still agitated from time to time requi ring versed and fentanyl pushes. Started on phenobarb yesterday. Blood cx + staph and urine + E. coli. Off pressor. Current Medications Current Medications Medications: Home Medications leflunomide 20 mg tablet 20 mg PO DAILY #90 tabs 12/04/20 [Rx Confirmed 01/30/22] colchicine 0.6 mg capsule See Rx Instructions .Route .COMPLEX #180 caps 12/31/20 [Rx Confirmed 01/30/22] atorvastatin 20 mg tablet 20 mg PO DAILY #90 tabs 08/20/21 [Rx Confirmed 01/30/22] hydrochlorothiazide 25 mg tablet 25 mg PO DAILY #90 tabs 08/20/21 [Rx Confirmed 01/30/22] metoprolol tartrate 50 mg tablet 50 mg PO BID #180 tabs 08/20/21 [Rx Confirmed 01/30/22] nortriptyline 50 mg capsule 50 mg PO DAILY #90 caps 08/20/21 [Rx Confirmed 01/30/22] pregabalin 150 mg capsule 150 mg PO BID #180 caps 08/20/21 [Rx Confirmed 01/30/22] venlafaxine 37.5 mg capsule,extended release 24 hr 37.5 mg PO 2XD 01/30/22 [History Confirmed 01/30/22] Visit Medications (administered) Generic Name Dose Route Start Last Admin Trade Name Freq PRN Reason Stop Dose Admin Albuterol 2.5 mg 01/30/22 16:37 01/31/22 01:15 Albuterol 2.5 Mg/3 Ml Neb (Adult) INH 2.5 mg [id number] PRN Administration Shortness Of Breath Albuterol/Ipratropium 3 ml 01/30/22 19:00 02/01/22 07:56 Albuterol/Ipratropium 3 Ml Ampul INH 3 ml [id number] MELVIN Administration Dexamethasone 6 mg 01/31/22 09:00 02/01/22 09:20 Dexamethasone 10 Mg/Ml Vial IV 6 mg DAILY MELVIN Administration Folic Acid 1 mg 01/31/22 09:00 02/01/22 09:19 Folic Acid 1 Mg Tablet PO 1 mg DAILY MELVIN Administration Heparin Sodium (Porcine) 5,000 unit 01/31/22 06:00 02/01/22 05:21 Heparin 5,000 Unit/Ml Vial SUBCUT 5,000 unit Q8HR MELVIN Administration Azithromycin 500 mg/ Dextrose 250 mls @ 250 mls/hr 01/30/22 15:17 01/31/22 15:45 IV Infused Q24H MELVIN Infusion Propofol 1,000 mg in 100 mls @ 2.177 mls/hr 01/31/22 03:45 02/01/22 05:39 Propofol IV 30 mcg/kg/min TITRATE MELVIN 13.064 mls/hr Administration Protocol 5 MCG/KG/MIN Fentanyl 1,000 mcg/ Dextrose 250 mls @ 12.701 mls/hr 01/31/22 04:00 02/01/22 07:48 IV 1 mcg/kg/hr TITRATE MELVIN 18.144 mls/hr Administration Protocol 0.7 MCG/KG/HR NOREPINEPHRINE BITARTRATE/D5W 4 mg in 250 mls @ 30 mls/hr 01/31/22 07:09 02/01/22 02:48 Levophed IV 0 mcg/min TITRATE MELVIN 0 mls/hr Titration Protocol 8 MCG/MIN Thiamine HCl 500 mg/ Sodium 105 mls @ 420 mls/hr 01/31/22 15:00 02/01/22 09:19 Chloride IV 02/02/22 09:01 420 mls/hr TID MELVIN Administration Vancomycin HCl 1,000 mg in 200 mls @ 200 mls/hr 01/31/22 14:00 02/01/22 08:09 Vancomycin IV 200 mls/hr Q18H MELVIN Administration Cefepime HCl 1 gm/ Sodium 100 mls @ 200 mls/hr 01/31/22 15:00 02/01/22 05:40 Chloride IV Infused Q12H MELVIN Infusion Midazolam HCl 50 mg/ Dextrose 250 mls @ 25 mls/hr 01/31/22 18:30 02/01/22 05:45 IV 6 mg/hr TITRATE MELVIN 30 mls/hr Administration Protocol 5 MG/HR Multivitamins 1 tab 01/31/22 09:00 02/01/22 09:19 Multivitamin 1 Tablet PO 1 tab DAILY MELVIN Administration Nicotine 14 mg 01/31/22 09:00 02/01/22 09:19 Nicotine 14 Patch TOP 14 mg DAILY MELVIN Administration Venlafaxine HCl 37.5 mg 01/31/22 09:00 02/01/22 09:19 Venlafaxine Er 37.5 Mg Cap PO 37.5 mg BID MELVIN Administration Objective Ventilator Parameters: Ventilator Settings Pressure Control 15 FiO2 38 RT Vent Frequency 24 Ventilator Tidal Volume 360 Exhaled Positive End Expiratory 6 Pressure Inspiratory Phase Time 0.9 I:E Ratio 1:1.8 Patient Position HOB >= 30 degrees Labs Result Diagrams: 02/01/22 05:00 02/01/22 05:00 Labs: Laboratory Results - last 24 hr 01/30/22 01/31/22 01/31/22 13:05 08:25 13:49 WBC RBC Hgb Hct MCV MCH MCHC RDW Plt Count Neut % (Auto) Lymph % (Auto) [place] % (Auto) Eos % (Auto) Baso % (Auto) Neut # (Auto) Lymph # (Auto) [place] # (Auto) Eos # (Auto) Baso # (Auto) ABG pH 7.32 L 7.34 L ABG pCO2 54.0 H 49.2 H ABG pO2 94 91 ABG HCO3 28 H 26 ABG Total CO2 29 28 ABG O2 Saturation 96 96 ABG Base Excess 2.0 1.0 FiO2 60 40 Sodium Potassium Chloride Carbon Dioxide BUN Creatinine Estimated GFR BUN/Creatinine Ratio Glucose Calcium Magnesium Total Bilirubin AST ALT Alkaline Phosphatase Total Protein Albumin Globulin Albumin/Globulin Ratio A. baumannii (PCR) Not detected Rosie albicans (PCR) Not detected C. glabrata (PCR) Not detected C. krusei (PCR) Not detected C. parapsilosis (PCR) Not detected C. tropicalis (PCR) Not detected Enterobacteriac sp PCR Not detected E. cloacae complex PCR Not detected Enterococcus sp PCR Not detected E. coli (PCR) Not detected H. influenzae (PCR) Not detected Klebsiella oxytoca PCR Not detected Klebsiella pneumoniae Not detected List. monocytogenes PCR Not detected N. meningitidis (PCR) Not detected Proteus species (PCR) Not detected Serratia marcescens PCR Not detected Staphylococcus sp PCR Detected H Staph aureus (PCR) Not detected mecA-Methicil Res Gene Not detected Streptococcus sp PCR Not detected Group A Strep (PCR) Not detected Strep agalactiae (PCR) Not detected Strep pneumoniae (PCR) Not detected P. aeruginosa (PCR) Not detected Jaison/B-Vanco Res Genes Not Reportable KPC-Carbap Res Gene PCR Not Reportable 02/01/22 02/01/22 05:00 05:00 WBC 15.0 H RBC 3.47 L Hgb 10.9 L Hct 33.3 L MCV 96.0 MCH 31.5 MCHC 32.8 RDW 14.3 Plt Count 279 Neut % (Auto) 81.2 H Lymph % (Auto) 9.4 L [place] % (Auto) 9.0 Eos % (Auto) 0.1 L Baso % (Auto) 0.3 Neut # (Auto) 83930 H Lymph # (Auto) 1400 [place] # (Auto) 1300 H Eos # (Auto) 0 Baso # (Auto) 0 ABG pH ABG pCO2 ABG pO2 ABG HCO3 ABG Total CO2 ABG O2 Saturation ABG Base Excess FiO2 Sodium 131 L Potassium 3.0 L Chloride 97 L Carbon Dioxide 24 BUN 32 H Creatinine 1.20 H Estimated GFR 51 L BUN/Creatinine Ratio 26.7 H Glucose 116 H Calcium 7.2 L Magnesium 2.4 H Total Bilirubin 0.5 AST 18 ALT 18 Alkaline Phosphatase 124 Total Protein 6.5 Albumin 3.0 L Globulin 3.5 Albumin/Globulin Ratio 0.9 L A. baumannii (PCR) Rosie albicans (PCR) C. glabrata (PCR) C. krusei (PCR) C. parapsilosis (PCR) C. tropicalis (PCR) Enterobacteriac sp PCR E. cloacae complex PCR Enterococcus sp PCR E. coli (PCR) H. influenzae (PCR) Klebsiella oxytoca PCR Klebsiella pneumoniae List. monocytogenes PCR N. meningitidis (PCR) Proteus species (PCR) Serratia marcescens PCR Staphylococcus sp PCR Staph aureus (PCR) mecA-Methicil Res Gene Streptococcus sp PCR Group A Strep (PCR) Strep agalactiae (PCR) Strep pneumoniae (PCR) P. aeruginosa (PCR) Jaison/B-Vanco Res Genes KPC-Carbap Res Gene PCR Exam Vital Signs (past 8 hours): - 02/01/22 03:00 02/01/22 02:30 02/01/22 02:30 Temperature Pulse Rate 110 H Respiratory Rate 24 Blood Pressure 109/62 Pulse Oximetry 100 92 Oxygen Delivery Method Mechanical Ventilation Oxygen Flow Rate 38 02/01/22 02:45 02/01/22 02:45 02/01/22 03:00 Temperature Pulse Rate 114 H Respiratory Rate 24 Blood Pressure 124/64 123/64 Pulse Oximetry 98 Oxygen Delivery Method Oxygen Flow Rate 02/01/22 03:00 02/01/22 03:15 02/01/22 03:15 Temperature Pulse Rate 112 H 112 H Respiratory Rate 24 24 Blood Pressure 117/63 Pulse Oximetry 100 93 Oxygen Delivery Method Oxygen Flow Rate 02/01/22 03:30 02/01/22 03:30 02/01/22 03:45 Temperature Pulse Rate 119 H 115 H Respiratory Rate 24 24 Blood Pressure 126/66 Pulse Oximetry 93 99 Oxygen Delivery Method Oxygen Flow Rate 02/01/22 03:45 02/01/22 04:00 02/01/22 04:00 Temperature 99.4 F Pulse Rate 116 H Respiratory Rate 24 Blood Pressure 127/66 126/66 Pulse Oximetry 100 Oxygen Delivery Method Oxygen Flow Rate 02/01/22 05:00 02/01/22 07:00 Temperature Pulse Rate Respiratory Rate Blood Pressure Pulse Oximetry 100 Oxygen Delivery Method Mechanical Ventilation Mechanical Ventilation Oxygen Flow Rate 38 Fraction of Inspired Oxygen 38 SaO2/FiO2 Ratio 255 Oxygen Delivery Method Mechanical Ventilation Oxygen Flow Rate 38 Narrative Exam Narrative: Intubated and sedated Assessment & Plan Assessment & Plan narrative: NEURO: # Acute encephalopathy -- Secondary to DTs and sepsis -- On propofol, versed, and fentanyl -- RASS goal -1 to 0 -- Seek early mobility # Alcohol abuse -- Currentlyt in DTs -- On sedation as above -- On thiamine, folic acid, and MTV -- On seizure precaution RESP: # Acute hypoxemia respiratory failure -- Intubated and sedated -- On nontoxic level of FIO2 -- On abx as below -- Daily SAT and SBT -- Avoid net positive fluid balance -- Lasix as needed if net positive + 500 mL -- HOB elevation -- Aspiration precaution -- Goal SpO2 > 88% ID: # COVID PNA -- On decadron and remdesivir therapy -- Lasix as needed to avoid net positive fluid balance -- On contact, airborne, and droplet precautions # Severe sepsis -- Secondary to E. coli and staph bacteremia -- On vanc/cefepime -- Follow up cx data -- Check TTE -- Check repeat blood cx tomorrow HEME: # Anemia -- Secondary to acute sickness and chronic alcoholism causing BM suppression -- Daily CBC -- Goal Hb > 7 GI: -- Recommend starting TF ENDO: -- GOal BS < 180 -- Accucheck every 6 hours VTE: Heparin 5000 TID SUP: Pepcid D/w bedside RN and hospitalist Time Spent With Patient Critical Care time: I spent a total of 38 minutes of critical care time on this patient's care today; this time is exclusive of procedural time.
--- NOTE | 2022-02-01 10:52 | CM.DPC ---
Addendum entered by GLENN Terry 02/01/22 13:26: ADD: Care Conference SW, RN, and MD met with Sig Other Saqib and provided lengthy and detailed info on pt's current medical status and co-morbidities and risks with withdrawal/intubation/COVID/staph/etc.. Sig Other tearful but realistic and confirms that he and pt have been together about 7 years and have lived together during this time and SO has been suspicious of pt's ETOH use but pt has hidden most of her drinking so SO unsure how much pt drinks daily but suspects a lot and states Dtrs confirmed that pt would hide alcohol even when we were little kids. SO confirms that pt is home during the day as she is not employed and he works timekeeper and pt uses a walker at baseline due to chronic knee and back pain and has a scheduled knee replacement with Ortho Dr. Saleh in [place]. Pt drives and is independent with ADLs at baseline but has been using ETOH for self medicating and pain management. SO is not aware of any hx of SNF or of ETOH tx and pt's Parra could be a barrier to SNF depending on pt's needs. Dtr and pt's brother have called and gotten updates from RN but disclosure of her significant ETOH withdrawal has not been provided to family members at this time other than to Sig Other. SO plans to be very involved and supportive of discussions of d/c planning once/if pt sucessfully extubated and able to participate in goal directed discussion for discharge planning. Plan: SW to follow very closely for attempts at extubation when pt more medically appropriate as pt will likely have discharge planning needs (SNF vs ETOH tx resources etc.) pending her progress. GLENN Terry Original Note: DCP Goals of Care Planning Per MD, pt remains vented and sedated and prognosis potentially poor and unclear if pt will be able to successfully be extubated and requested Goals of Care discussion. LAURA called pt's Sig Other Saqib and he is agreeable with arriving bedside today around [id number] for further discussion with MD and staff. LAURA inquired about pt's daughters and SO states one Dtr lives in [place] and one lives in [place] and pt does not discuss her ETOH or medical issues with Dtrs and he feels pt would not want Dtrs involved yet at this time and pt's brother lives in [place]. SO Saqib states pt has completed POLST maybe DPOA pwk at prior admits but does not remember a copy at home and SW cannot find documentation scanned into pt's chart. Unfortunately today is Sun so PCP office cannot be contacted until tomorrow at pt's PCP is Lala Partida who may have completed this with pt at a prior office visit. SW updated MD and RN. Plan: SW to follow for Goals of Care discussion today with SO present with MD towards determining plans if pt has poor prognosis and not able to be extubated. Rachel Kendrick, TELEPHONE DIRECTORY DISTRIBUTOR DRIVER
[2022-02-01] MEDS: REMDESIVIR 100 MG in SODIUM CHLORIDE 0.9% 230 ML 250 MG IV (11:01)
[2022-02-01] MEDS: FAMOTIDINE 20 MG/2 ML VIAL IV ×2 (11:02→21:00)
[2022-02-01] MEDS: PHENobarbital 65 MG/ML VIAL 260 MG IV ×3 (11:02→21:49)
[2022-02-01] MEDS: propofoL 1,000 MG/100 ML VIAL 15.241 MG IV (12:49)
--- NOTE | 2022-02-01 15:03 | PM.PN.1 ---
Subjective Subjective Interval history: 62-year-old female with anxiety, rheumatoid arthritis, tobacco dependence, hypertension, hyperlipidemia, and alcohol dependence presently hospital day 3. Admitted with COVID pneumonia, acute hypoxic respiratory failure requiring intubation/mechanical ventilation septic shock, PAUL, and acute encephalopathy. Additionally, she is found to have staph bacteremia and E coli UTI., ICU nurse reports difficulty with patient's agitation. She is been tachycardic and fighting the ventilator. She did not have much benefit with Precedex. Versed drip has been in place as well but she has remained agitated. Her significant other reports she does drink heavily and has had a longstanding history of heavy alcohol use. When her children were young she reportedly would hide her alcohol bottles and no one currently has a clear idea of how much she drinks daily. She reportedly drinks to control her pain from her rheumatoid arthritis Exam Vital Signs (past 8 hours): - 02/01/22 10:45 02/01/22 08:00 Pulse Oximetry 93 100 Oxygen Delivery Method Mechanical Ventilation Mechanical Ventilation Fraction of Inspired Oxygen 38 38 Fraction of Inspired Oxygen 38 SaO2/FiO2 Ratio 244 Oxygen Delivery Method Mechanical Ventilation Oxygen Flow Rate 38 Narrative Exam Narrative: GEN: Ill-appearing middle-aged female, intubated and sedated HEENT:NC, Face symmetric CHEST: Respiratory excursions symmetric, diffuse bilateral coarse rhonchi CV: RRR, no M/R/G ABD: Soft, NT/ND, BT present in all 4 quadrants, no organomegaly or masses EXTR: warm, livido reticularis noted bilateral legs, right greater than left, prior 3rd toe amputation on the left side SKIN: warm and dry, no rash NEURO: Intubated/sedated, nonfocal Objective Labs Result Diagrams: 02/01/22 05:00 02/01/22 05:00 Labs: Laboratory Results - last 24 hr 02/01/22 02/01/22 05:00 05:00 WBC 15.0 H RBC 3.47 L Hgb 10.9 L Hct 33.3 L MCV 96.0 MCH 31.5 MCHC 32.8 RDW 14.3 Plt Count 279 Neut % (Auto) 81.2 H Lymph % (Auto) 9.4 L Mcdonough % (Auto) 9.0 Eos % (Auto) 0.1 L Baso % (Auto) 0.3 Neut # (Auto) 34495 H Lymph # (Auto) 1400 Mcdonough # (Auto) 1300 H Eos # (Auto) 0 Baso # (Auto) 0 Sodium 131 L Potassium 3.0 L Chloride 97 L Carbon Dioxide 24 BUN 32 H Creatinine 1.20 H Estimated GFR 51 L BUN/Creatinine Ratio 26.7 H Glucose 116 H Calcium 7.2 L Magnesium 2.4 H Total Bilirubin 0.5 AST 18 ALT 18 Alkaline Phosphatase 124 Total Protein 6.5 Albumin 3.0 L Globulin 3.5 Albumin/Globulin Ratio 0.9 L PFSH Medical History Alcohol dependence Anemia Anxiety Chronic back pain (~2013) COVID-19 virus infection Degenerative joint disease (DJD) of lumbar spine (~1975) Hyperlipidemia Hypertension Osteoarthritis (~2013) Pneumonia Rheumatoid arthritis (~2009) Scoliosis (~1975) Tobacco dependence Surgical History Anesthesia History of amputation of toe (~2018) History of incision and drainage (03/19/20) Status post left foot surgery (08/23/20) Family History Father Cancer Hypertension Hyperlipidemia Mother Hypertension Brother Testicular cancer Hypertension Brother Diabetes mellitus Hypertension Hyperlipidemia Social History household members: significant other and family Smoking Status: Current every day smoker Tobacco: How many years used: 40 quit status: quit date established (September 08 2020) second hand exposure: No alcohol intake: current substance use type: does not use Assessment & Plan Assessment & Plan narrative: 1. Acute hypoxic respiratory failure Etiology is felt to be COVID pneumonia. Possible superimposed bacterial pneumonia as well. Patient remains on remdesivir/dexamethasone/azithromycin/cefepime/vanco. Appreciate management per judicial administrative assistant. 2. Alcohol dependence complicated by withdrawal Patient remains on a Versed infusion. She did not have success with Precedex at controlling symptoms. She did receive IV phenobarb last evening with some benefit. Will give phenobarb q.6 hours for 24 hours and then transitioned to as needed use. Anticipate ongoing withdrawal symptoms for possibly another 48 hours. 3. Staph aureus bacteremia As noted, patient is well covered with present antibiotic regimen. 4. E coli UTI Presently well covered with present antibiotic regimen. 5. Septic shock Remains on broad-spectrum antibiotics. Appreciate judicial administrative assistant management. Etiology is likely multifactorial from bacteremia, UTI, COVID pneumonia, possible superimposed bacterial pneumonia. Leukocytosis is significantly improved down from 29.0 yesterday to 15.0 today 6. Acute metabolic encephalopathy Likely multifactorial from shock and alcohol withdrawal. Continue utilizing sedation was judiciously. 7. PAUL Improving. Creatinine is down from 1 0.3-1.2. 8. Rheumatoid arthritis Holding leflunomide. 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 Per report this is chronic. 9. Hypertension On metoprolol 10. Anxiety On venlafaxine 11. Tobacco dependence Nicotine patch is in place 12. Hypokalemia Repleting Code status Full Prophylaxis On heparin and famotidine Disposition ICU Time Spent With Patient Critical Care time: I spent a total of [] minutes of critical care time on this patient's care today; this time is exclusive of procedural time.
[2022-02-01] MEDS: AZITHROMYCIN 500 MG in DEXTROSE 5% IN WATER 250 ML 250 MG IV (15:35)
[2022-02-01] MEDS: ALBUTEROL 2.5 MG/3 ML NEB (ADULT) INH (17:07)
--- NOTE | 2022-02-01 18:52 | PC.NURSE ---
Day shift: Pt. is currently ventilated FiO2 38% TV 390 RR 18 PEEP 4, gtts are Propofol, fentanyl, Versed, see emar for current dosing. Pt. is diaphoretic, lungs tight and diminished, SR. It is noted that pt. has redness to bilateral groin and sacrum is reddened and excoriated, her extremities are mottled with PVD. Pt. bridged with pillows and has bilateral wrist restraints, givens catheter patent and draining clear yellow urine, OG to LIS, turning pt Q2hr, bed low and locked, call light within reach, will continue to monitor.
--- NOTE | 2022-02-01 20:25 | PM.ICURNDS ---
- Date Patient Seen: 02/01/22 Time Patient Seen: 20:25 :: This patient was seen via real time interactive two-way audiovisual telecommunication. Note: Patient remains sedated on propofol, versed, and fentanyl. Bloodand resp cx + staph aureus. Off pressor. Ordered lasix 40 mg IV once. Cont titrating down sedation to seek RASS goal -1 to 0. D/w bedside RN.
[2022-02-01] MEDS: FUROSEMIDE 40 MG/4 ML VIAL IV (21:47)
[2022-02-02] VITALS (98 sets, daily range): BP systolic 97–194; BP diastolic 56–90; PULSE 82–124; RESP 12–35; TEMP 36.1–37.5; O2SAT 88–100
[2022-02-02] MEDS: VANCOMYCIN 1,000 MG/200 ML PIGGYBACK 200 MG IV (01:54)
[2022-02-02] MEDS: CEFEPIME 1 GM in SODIUM CHLORIDE 0.9% 100 ML IV (03:13)
[2022-02-02] MEDS: propofoL 1,000 MG/100 ML VIAL 13.064 MG IV ×3 (03:20→20:23)
[2022-02-02] MEDS: MIDAZOLAM 50 MG in DEXTROSE 5% IN WATER 240 ML 30 MG IV (04:16)
[2022-02-02] MEDS: PHENobarbital 65 MG/ML VIAL 260 MG IV (04:18)
[2022-02-02 04:52] LABS: Add Manual Diff / Slide Review NO; Basophils Absolute Auto 100 /uL (0-100); Basophils Percent Auto 0.4 % (0-2); Eosinophils Absolute Auto 0 /uL (0-450); Eosinophils Percent Auto 0.1 % (2-4); Hematocrit 30.7 % (36-46); Hemoglobin 10.2 g/dL (12.0-16.0); Lymphocytes Absolute Auto 1100 /uL (1100-4500); Lymphocytes Percent Auto 6.8 % (25-40); Mean Corpuscular HGB Conc 33.1 % (30-36); Mean Corpuscular Hemoglobin 31.7 PG (26-34); Mean Corpuscular Volume 95.8 fL (80-100); Monocytes Absolute Auto 1300 /uL (0-900); Monocytes Percent Auto 8.5 % (3-14); Neutrophils Absolute Auto 13300 /uL (1500-7000); Neutrophils Percent Auto 84.2 % (50-75); Platelet Count 278 X10^3/uL (150-400); Red Blood Cell Count 3.21 X10^6/uL (4.0-5.2); Red Cell Distribution Width 14.5 % (11.6-14.8); White Blood Cell Count 15.8 X10^3/uL (4.5-11.0)
[2022-02-02 05:09] LABS: Alanine Aminotransferase 16 IU/L (<35); Albumin 2.8 g/dL (3.5-5.0); Albumin Globulin Ratio 0.8 (1.0-2.8); Alkaline Phosphatase 108 U/L (38-126); Aspartate Aminotransferase 18 IU/L (14-36); BUN Creatinine Ratio 20.2 (6-22); Bilirubin Total 0.5 mg/dL (0.2-1.3); Blood Urea Nitrogen 23 mg/dL (7-17); Calcium 7.5 mg/dL (8.4-10.2); Carbon Dioxide 24 mmol/L (22-32); Chloride 98 mmol/L (98-107); Estimated Glomerular Filt Rate 54 mL/min (>60); Globulin 3.3 g/dL (1.7-4.1); Glucose 122 mg/dL (80-110); HEMOLYSIS < 15 (0-50); Magnesium 2.1 mg/dL (1.6-2.3); Sodium 133 mmol/L (137-145); Total Protein 6.1 g/dL (6.3-8.2)
[2022-02-02] MEDS: HEPARIN 5,000 UNIT/ML VIAL 5000 UNIT SUBCUT ×3 (05:13→21:03)
[2022-02-02 05:17] LABS: Potassium 2.6 mmol/L (3.4-5.1)
--- NOTE | 2022-02-02 05:36 | PC.NURSE ---
0530- Patient AM labs completed and show a potassium of 2.6. Dr. Baig notified orders rec. Will monitor.
[2022-02-02] MEDS: POTASSIUM CHLORIDE IN WATER 10 MEQ/100 ML PIGGYBACK 100 MEQ IV ×8 (05:54→14:42)
[2022-02-02] MEDS: MAGNESIUM SULFATE 2 GM/50 ML PIGGYBACK IV (05:55)
[2022-02-02] MEDS: ALBUTEROL/IPRATROPIUM 3 ML AMPUL INH ×4 (07:27→22:28)
[2022-02-02] MEDS: fentaNYL 1,000 MCG in DEXTROSE 5% IN WATER 230 ML 18.144 MCG IV ×2 (08:18→21:33)
[2022-02-02] MEDS: FAMOTIDINE 20 MG/2 ML VIAL IV ×2 (09:36→21:03)
[2022-02-02] MEDS: DEXAMETHASONE 10 MG/ML VIAL 6 MG IV (09:36)
[2022-02-02] MEDS: NICOTINE 14 PATCH 14 MG TOP (09:37)
[2022-02-02] MEDS: REMDESIVIR 100 MG in SODIUM CHLORIDE 0.9% 230 ML 250 MG IV (09:37)
[2022-02-02] MEDS: MULTIVITAMIN 1 TABLET 1 TAB PO (09:37)
[2022-02-02] MEDS: FOLIC ACID 1 MG TABLET PO (09:37)
--- NOTE | 2022-02-02 10:00 | DI.RAD.S_ITS ---
PROCEDURE: XR CHEST 1V INDICATIONS: eval ett TECHNIQUE: One view of the chest was acquired. COMPARISON: [facility], CR, XR CHEST 2 VIEWS, 01/14/2021, 9:31. [facility], CR, XR CHEST 1V, 01/30/2022, 12:19. [facility], CR, XR CHEST 1V, 01/31/2022, 3:40. [facility], CR, XR CHEST 1V, 01/31/2022, 4:45. FINDINGS: Surgical changes and devices: An endotracheal tube is seen, with the tip 4 cm above the nona. A gastric tube is seen, with the tip not visible, yet traversing below the level of the diaphragm. Lungs and pleura: On this semiupright study, no large pneumothorax can be seen. There is a small to moderate right-sided pleural effusion, which appears similar to the prior, when elements are made for differences in lung right cummings. Low lung volumes are seen on the current study. Generalized interstitial prominence can be seen. Mediastinum: Mediastinal contours appear normal. Heart size is moderately enlarged. Bones and chest wall: No suspicious bony lesions. Age-appropriate bony degenerative changes are seen. Mild dextroconvex scoliotic curvature is seen. Overlying soft tissues appear unremarkable. IMPRESSION: The tip of the endotracheal tube is seen 4 cm above the nona. Continued right-sided pleural effusion. Cardiomegaly and interstitial prominence. Please consider CHF. Dictated by: Frankie Green M.D. on 02/02/2022 at 10:27 Approved by: Frankie Green M.D. on 02/02/2022 at 10:32
--- NOTE | 2022-02-02 10:01 | PM.PN.EICU ---
Subjective Subjective IF CAMERA ACTIVATED, patient seen via real-time interactive audiovisual communication: Camera activated Consent obtained for tele-autoclave operator care: Yes Patient Location: ICU Provider location (State): [place] Other participants/roles: Dr. Dill, bedside nurse Current Medications Current Medications Medications: Home Medications leflunomide 20 mg tablet 20 mg PO DAILY #90 tabs 12/04/20 [Rx Confirmed 01/30/22] colchicine 0.6 mg capsule See Rx Instructions .Route .COMPLEX #180 caps 12/31/20 [Rx Confirmed 01/30/22] atorvastatin 20 mg tablet 20 mg PO DAILY #90 tabs 08/20/21 [Rx Confirmed 01/30/22] hydrochlorothiazide 25 mg tablet 25 mg PO DAILY #90 tabs 08/20/21 [Rx Confirmed 01/30/22] metoprolol tartrate 50 mg tablet 50 mg PO BID #180 tabs 08/20/21 [Rx Confirmed 01/30/22] nortriptyline 50 mg capsule 50 mg PO DAILY #90 caps 08/20/21 [Rx Confirmed 01/30/22] pregabalin 150 mg capsule 150 mg PO BID #180 caps 08/20/21 [Rx Confirmed 01/30/22] venlafaxine 37.5 mg capsule,extended release 24 hr 37.5 mg PO 2XD 01/30/22 [History Confirmed 01/30/22] Visit Medications (administered) Generic Name Dose Route Start Last Admin Trade Name Freq PRN Reason Stop Dose Admin Albuterol 2.5 mg 01/30/22 16:37 02/01/22 17:07 Albuterol 2.5 Mg/3 Ml Neb (Adult) INH 2.5 mg [id number] PRN Administration Shortness Of Breath Albuterol/Ipratropium 3 ml 01/30/22 19:00 02/02/22 07:27 Albuterol/Ipratropium 3 Ml Ampul INH 3 ml [id number] MELVIN Administration Dexamethasone 6 mg 01/31/22 09:00 02/02/22 09:36 Dexamethasone 10 Mg/Ml Vial IV 6 mg DAILY MELVIN Administration Famotidine 20 mg 02/01/22 10:45 02/02/22 09:36 Famotidine 20 Mg/2 Ml Vial IV 20 mg BID MELVIN Administration Folic Acid 1 mg 01/31/22 09:00 02/02/22 09:37 Folic Acid 1 Mg Tablet PO 1 mg DAILY MELVIN Administration Heparin Sodium (Porcine) 5,000 unit 01/31/22 06:00 02/02/22 05:13 Heparin 5,000 Unit/Ml Vial SUBCUT 5,000 unit Q8HR MELVIN Administration Heparin Sodium (Porcine) 50 unit 02/02/22 00:45 02/02/22 01:53 Heparin Flush (Cl/Picc/Mid-Line) 50 Unit/5 Ml Syringe IV 50 unit BID MELVIN Administration Azithromycin 500 mg/ Dextrose 250 mls @ 250 mls/hr 01/30/22 15:17 02/01/22 16:35 IV Infused Q24H MELVIN Infusion Propofol 1,000 mg in 100 mls @ 2.177 mls/hr 01/31/22 03:45 02/02/22 03:20 Propofol IV 30 mcg/kg/min TITRATE MELVIN 13.064 mls/hr Administration Protocol 5 MCG/KG/MIN Fentanyl 1,000 mcg/ Dextrose 250 mls @ 12.701 mls/hr 01/31/22 04:00 02/02/22 08:18 IV 1 mcg/kg/hr TITRATE MELVIN 18.144 mls/hr Administration Protocol 0.7 MCG/KG/HR NOREPINEPHRINE BITARTRATE/D5W 4 mg in 250 mls @ 30 mls/hr 01/31/22 07:09 02/01/22 02:48 Levophed IV 0 mcg/min TITRATE MELVIN 0 mls/hr Titration Protocol 8 MCG/MIN Vancomycin HCl 1,000 mg in 200 mls @ 200 mls/hr 01/31/22 14:00 02/02/22 03:13 Vancomycin IV Infused Q18H MELVIN Infusion Cefepime HCl 1 gm/ Sodium 100 mls @ 200 mls/hr 01/31/22 15:00 02/02/22 04:24 Chloride IV Infused Q12H MELVIN Infusion Midazolam HCl 50 mg/ Dextrose 250 mls @ 25 mls/hr 01/31/22 18:30 02/02/22 04:16 IV 6 mg/hr TITRATE MELVIN 30 mls/hr Administration Protocol 5 MG/HR Remdesivir 100 mg/ Sodium 250 mls @ 250 mls/hr 02/01/22 11:00 02/02/22 09:37 Chloride IV 02/09/22 09:59 250 mls/hr DAILY MELVIN Administration Multivitamins 1 tab 01/31/22 09:00 02/02/22 09:37 Multivitamin 1 Tablet PO 1 tab DAILY MELVIN Administration Nicotine 14 mg 01/31/22 09:00 02/02/22 09:37 Nicotine 14 Patch TOP 14 mg DAILY MELVIN Administration Venlafaxine HCl 37.5 mg 01/31/22 09:00 02/01/22 21:50 Venlafaxine Er 37.5 Mg Cap PO 37.5 mg BID MELVIN Administration Objective Ventilator Parameters: Ventilator Settings Pressure Control 15 FiO2 38 RT Vent Frequency 18 Ventilator Tidal Volume 390 Exhaled Vt/kg IBW 6 Positive End Expiratory 5 Pressure Inspiratory Phase Time 0.8 I:E Ratio 1:3.2 Patient Position HOB >= 30 degrees Labs Result Diagrams: 02/02/22 04:45 02/02/22 04:45 Labs: Laboratory Results - last 24 hr 02/02/22 02/02/22 04:45 04:45 WBC 15.8 H RBC 3.21 L Hgb 10.2 L Hct 30.7 L MCV 95.8 MCH 31.7 MCHC 33.1 RDW 14.5 Plt Count 278 Neut % (Auto) 84.2 H Lymph % (Auto) 6.8 L Carroll % (Auto) 8.5 Eos % (Auto) 0.1 L Baso % (Auto) 0.4 Neut # (Auto) 60586 H Lymph # (Auto) 1100 Carroll # (Auto) 1300 H Eos # (Auto) 0 Baso # (Auto) 100 Sodium 133 L Potassium 2.6 L* Chloride 98 Carbon Dioxide 24 BUN 23 H Creatinine 1.14 H Estimated GFR 54 L BUN/Creatinine Ratio 20.2 Glucose 122 H Calcium 7.5 L Magnesium 2.1 Total Bilirubin 0.5 AST 18 ALT 16 Alkaline Phosphatase 108 Total Protein 6.1 L Albumin 2.8 L Globulin 3.3 Albumin/Globulin Ratio 0.8 L Exam Vital Signs (past 8 hours): - 02/02/22 04:00 02/02/22 02:15 02/02/22 02:15 Temperature Pulse Rate 112 H Respiratory Rate 17 Blood Pressure 129/67 Pulse Oximetry 96 100 Oxygen Delivery Method Mechanical Ventilation Oxygen Flow Rate 38 02/02/22 02:30 02/02/22 02:30 02/02/22 02:45 Temperature Pulse Rate 110 H Respiratory Rate 18 Blood Pressure 115/66 117/63 Pulse Oximetry 100 Oxygen Delivery Method Oxygen Flow Rate 02/02/22 02:45 02/02/22 03:00 02/02/22 03:00 Temperature Pulse Rate 109 H 110 H Respiratory Rate 18 18 Blood Pressure 118/64 Pulse Oximetry 99 99 Oxygen Delivery Method Oxygen Flow Rate 02/02/22 03:15 02/02/22 03:15 02/02/22 03:30 Temperature Pulse Rate 109 H Respiratory Rate 18 Blood Pressure 114/59 L 112/65 Pulse Oximetry 99 Oxygen Delivery Method Oxygen Flow Rate 02/02/22 03:30 02/02/22 03:45 02/02/22 03:45 Temperature Pulse Rate 108 H 108 H Respiratory Rate 18 18 Blood Pressure 115/65 Pulse Oximetry 99 98 Oxygen Delivery Method Oxygen Flow Rate 02/02/22 04:00 02/02/22 04:00 02/02/22 05:00 Temperature 99.5 F Pulse Rate 108 H Respiratory Rate 18 Blood Pressure 114/65 Pulse Oximetry 96 Oxygen Delivery Method Mechanical Ventilation Oxygen Flow Rate 02/02/22 07:00 02/02/22 07:00 02/02/22 07:15 Temperature Pulse Rate 112 H 111 H Respiratory Rate 18 18 Blood Pressure 123/74 Pulse Oximetry 95 96 Oxygen Delivery Method Oxygen Flow Rate 02/02/22 07:15 02/02/22 07:30 02/02/22 07:30 Temperature Pulse Rate 110 H Respiratory Rate 17 Blood Pressure 125/74 131/65 Pulse Oximetry 98 Oxygen Delivery Method Oxygen Flow Rate Fraction of Inspired Oxygen 38 SaO2/FiO2 Ratio 244 Oxygen Delivery Method Mechanical Ventilation Oxygen Flow Rate 38 Assessment & Plan Assessment & Plan narrative: patient seen with [facility] nurse and provider Dr. Dill chart/labs/imaging reviewed 62y ear old female admitted to ICU with: acute respiratory failure covid pneumonia etoh withdrawal currently afebrile, tachycardic no pertient lab abnormallities cxr pending suggest -neurochecks/seizure precautions -goal RASS -1 -daily SAH/SBT trials -avoid versed/benozos unless seizure activity -start seroquel 25mg q12, check qtc, keep less than 550 -start prcecedex, wean off of propfool/fentanyl, have to dc drips -continue thiamine/folate -nutrition eval/start tube feeds,monitor for refeeding syndrome -vent support, keep sat above 92%, vent settings are minimal -chest pt/pulm toilet -steroids/redesevir for void -cxs growing mssa in blood, can dc vanco start ancef e.coli in urine, can dc cefepime start rocephin -echo done, results pending -monitor ins/outs -replace lytes prn -gi/dvt ppx -please call eICU if condition changes total ccm time 55 mins Time Spent With Patient Critical Care time: I spent a total of [] minutes of critical care time on this patient's care today; this time is exclusive of procedural time.
[2022-02-02] MEDS: VENLAFAXINE ER 37.5 MG CAP PO (10:19)
--- NOTE | 2022-02-02 10:33 | PM.PN.1 ---
Subjective Subjective Interval history: 62-year-old female with anxiety, rheumatoid arthritis, tobacco dependence, hypertension, hyperlipidemia, and alcohol dependence presently hospital day 3. Admitted with COVID pneumonia, acute hypoxic respiratory failure requiring intubation/mechanical ventilation septic shock, PAUL, and acute encephalopathy.? Additionally, she is found to have staph bacteremia and E coli UTI., Pt remains intubated and sedated. Now on propofol and fentanyl for sedation. Did well overnight w/o agitation. Reconditioner recommends intiation of tube feeds, transitioning back to precedex for sedation and daily SBTs. RN notes overnight pt had significant wheezing requiring frequent nebulizer treatments. Exam Vital Signs (past 8 hours): - 02/02/22 04:00 02/02/22 02:45 02/02/22 02:45 Temperature Pulse Rate 109 H Respiratory Rate 18 Blood Pressure 117/63 Pulse Oximetry 96 99 Oxygen Delivery Method Mechanical Ventilation Oxygen Flow Rate 38 Fraction of Inspired Oxygen 02/02/22 03:00 02/02/22 03:00 02/02/22 03:15 Temperature Pulse Rate 110 H Respiratory Rate 18 Blood Pressure 118/64 114/59 L Pulse Oximetry 99 Oxygen Delivery Method Oxygen Flow Rate Fraction of Inspired Oxygen 02/02/22 03:15 02/02/22 03:30 02/02/22 03:30 Temperature Pulse Rate 109 H 108 H Respiratory Rate 18 18 Blood Pressure 112/65 Pulse Oximetry 99 99 Oxygen Delivery Method Oxygen Flow Rate Fraction of Inspired Oxygen 02/02/22 03:45 02/02/22 03:45 02/02/22 04:00 Temperature Pulse Rate 108 H Respiratory Rate 18 Blood Pressure 115/65 114/65 Pulse Oximetry 98 Oxygen Delivery Method Oxygen Flow Rate Fraction of Inspired Oxygen 02/02/22 04:00 02/02/22 05:00 02/02/22 07:00 Temperature 99.5 F Pulse Rate 108 H Respiratory Rate 18 Blood Pressure 123/74 Pulse Oximetry 96 Oxygen Delivery Method Mechanical Ventilation Oxygen Flow Rate Fraction of Inspired Oxygen 02/02/22 07:00 02/02/22 07:15 02/02/22 07:15 Temperature Pulse Rate 112 H 111 H Respiratory Rate 18 18 Blood Pressure 125/74 Pulse Oximetry 95 96 Oxygen Delivery Method Oxygen Flow Rate Fraction of Inspired Oxygen 02/02/22 07:30 02/02/22 07:30 02/02/22 10:31 Temperature Pulse Rate 110 H 108 H Respiratory Rate 17 18 Blood Pressure 131/65 Pulse Oximetry 98 100 Oxygen Delivery Method Mechanical Ventilation Oxygen Flow Rate Fraction of Inspired Oxygen 35 Fraction of Inspired Oxygen 35 SaO2/FiO2 Ratio 285 Oxygen Delivery Method Mechanical Ventilation Oxygen Flow Rate 38 Narrative Exam Narrative: GEN:? Ill-appearing middle-aged female, intubated and sedated HEENT:NC, Face symmetric CHEST: Respiratory excursions symmetric, diffuse bilateral coarse rhonchi and wheezes, diffusely diminished CV: RRR, no M/R/G ABD: Soft, NT/ND, BT present in all 4 quadrants, no organomegaly or masses EXTR: warm, livido reticularis noted bilateral legs, right greater than left, prior 3rd toe amputation on the left side SKIN: warm and dry, no rash NEURO:? Intubated/sedated, nonfocal Objective Labs Result Diagrams: 02/02/22 04:45 02/02/22 04:45 Labs: Laboratory Results - last 24 hr 02/02/22 02/02/22 04:45 04:45 WBC 15.8 H RBC 3.21 L Hgb 10.2 L Hct 30.7 L MCV 95.8 MCH 31.7 MCHC 33.1 RDW 14.5 Plt Count 278 Neut % (Auto) 84.2 H Lymph % (Auto) 6.8 L [place] % (Auto) 8.5 Eos % (Auto) 0.1 L Baso % (Auto) 0.4 Neut # (Auto) 86433 H Lymph # (Auto) 1100 [place] # (Auto) 1300 H Eos # (Auto) 0 Baso # (Auto) 100 Sodium 133 L Potassium 2.6 L* Chloride 98 Carbon Dioxide 24 BUN 23 H Creatinine 1.14 H Estimated GFR 54 L BUN/Creatinine Ratio 20.2 Glucose 122 H Calcium 7.5 L Magnesium 2.1 Total Bilirubin 0.5 AST 18 ALT 16 Alkaline Phosphatase 108 Total Protein 6.1 L Albumin 2.8 L Globulin 3.3 Albumin/Globulin Ratio 0.8 L PFSH Medical History Alcohol dependence Anemia Anxiety Chronic back pain (~2013) COVID-19 virus infection Degenerative joint disease (DJD) of lumbar spine (~1975) Hyperlipidemia Hypertension Osteoarthritis (~2013) Pneumonia Rheumatoid arthritis (~2009) Scoliosis (~1975) Tobacco dependence Surgical History Anesthesia History of amputation of toe (~2019) History of incision and drainage (03/19/20) Status post left foot surgery (08/23/20) Family History Father Cancer Hypertension Hyperlipidemia Mother Hypertension Brother Testicular cancer Hypertension Brother Diabetes mellitus Hypertension Hyperlipidemia Social History household members: significant other and family Smoking Status: Current every day smoker Tobacco: How many years used: 40 quit status: quit date established (September 08 2020) second hand exposure: No alcohol intake: current substance use type: does not use Assessment & Plan Assessment & Plan narrative: 1. Acute hypoxic respiratory failure Etiology is felt to be COVID pneumonia.? Possible superimposed bacterial pneumonia as well.? Patient remains on remdesivir (D3/10)/dexamethasone (D3/10)/azithromycin/cefepime/vanco.? Appreciate management per recruiting and selection consultant. As she is negative for MRSA, will d/c vanco. Plans to reduce sedation and perform SBT trial w/goal to extubate in the next 24 hours. 2. COVID pneumonia Continues remdesivir/dex. Neb treatments being given regularly as well. Given her underlying smoking hx, she likely has a component of undiagnosed COPD. If she continues to have significant wheezing tomorrow, consider transitioning from dex to methylpred. 2. Alcohol dependence complicated by withdrawal Pt is now off versed as noted above. Received 4 doses of IV phenobarb yesterday for w/d. Plan per recruiting and selection consultant is to start seroquel and resume precedex drip. 3. Staph aureus bacteremia MSSA in blood cultures from 01/30. Will repeat blood cultures. Only one bottle was positive, making it likely this was contaminant. 4. E coli UTI Pansensitive e coli. Plan to narrow abx from cefepime to rocephin. 5. Septic shock Remains on broad-spectrum antibiotics.? Appreciate recruiting and selection consultant management.? Etiology is likely multifactorial from bacteremia, UTI, COVID pneumonia, possible superimposed bacterial pneumonia.? Leukocytosis is significantly improved down from 29.0 on 01/31 to 15.0 yesterday and 15.8 today. 6. Acute metabolic encephalopathy Likely multifactorial from shock and alcohol withdrawal.? Plan to wean sedation as noted. 7. PAUL Improving.? Creatinine is down from 1.2 to 1.14 today. 8. Rheumatoid arthritis Holding leflunomide.? 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 Per report this is chronic. 9. Hypertension On metoprolol and HCTZ on an outpatient basis. BPs normotensive here. 10. Anxiety On venlafaxine 11. Tobacco dependence Nicotine patch is in place 12. Hypokalemia Potassium down to 2.6 today. Was 3.0 yesterday. Will give 60 meQ IV this am. Recheck this afternoon. Code status Full Prophylaxis On heparin and famotidine Disposition ICU Time Spent With Patient Critical Care time: I spent a total of [] minutes of critical care time on this patient's care today; this time is exclusive of procedural time.
[2022-02-02] MEDS: THIAMINE 500 MG in SODIUM CHLORIDE 0.9% 100 ML 420 MG IV (11:09)
[2022-02-02] MEDS: cefTRIAXone 1,000 MG in SODIUM CHLORIDE 0.9% 100 ML 200 MG IV (11:17)
--- NOTE | 2022-02-02 11:26 | DIET.CONS ---
Addendum entered by Aubrie Mendoza 02/02/22 11:45: Please keep HOB elevated >30 degrees at all time. Original Note: Dietary Consultation Note Admission Date: 01/30/2022 14:10 Assessment: 62y F ventilated with Covid pna and excessive etoh use to mask painof RA referred to nutrition for TF reccs as pt d3 NPO on vent. Pt with resolving PAUL (Cr 1.14, eGFR 54), pt with low K+. Ht: 167.64 cm Wt: 73.1 kg BMI: 25.8 Last BM: 01/31/22 (01/31/22 06:00) MNA: Tono Score: 10 Diet: 01/31/22 04:49 NPO Diet Diet Modifications: NPO Type: Strict Labs: RBC 3.21 X10^6/uL (4.0-5.2) L 02/02/22 04:45 Hgb 10.2 g/dL (12.0-16.0) L 02/02/22 04:45 Hct 30.7 % (36-46) L 02/02/22 04:45 Creatinine 1.14 mg/dL (0.52-1.04) H 02/02/22 04:45 Lactate 1.4 mmol/L (0.7-2.1) 01/30/22 12:15 NT-Pro-B Natriuret Pep 1500 pg/mL (<125) H 01/30/22 12:15 Nutrition Diagnosis: inadequate oral intake r/t NPO on vent Interventions: Recc initiating continuous enteral nutrition via NG/OG of formula Pivot 1.5 starting at 20mL/h titrating by 10-20mL q6h as tolerated up to goal of 45mL/h with 200mL free water flushes q4h. Please reconcile IVF vs free water flushes to find fluid balance. TF and flushes provide 2,020mL (28mL/kg). Goal feed and flushes provide: 1620kcals (22kcal/kg), 101g PRO (1.4g/kg), 186g CHO. EER: 1460-1825kcals (20-25kcal/kg), 75-109g PRO (1.0-1.5g/kg) Monitoring/Evaluations: following TF tolerance, renal and electrolyte labs, SBTs. Electronically Signed by: Aubrie Mendoza 02/02/22 11:26 Clinical Diet[address] [id number]
[2022-02-02] MEDS: dexmedeTOMIDine in 0.9 % NaCL 400 MCG/100 ML PLAST..BAG IV (13:20)
[2022-02-02] MEDS: ALBUTEROL 2.5 MG/3 ML NEB (ADULT) INH ×2 (13:33→17:20)
[2022-02-02] MEDS: AZITHROMYCIN 500 MG in DEXTROSE 5% IN WATER 250 ML 250 MG IV (14:44)
[2022-02-02] MEDS: CHLORHEXIDINE GLUCONATE 15 ML CUP PO ×2 (16:06→21:03)
[2022-02-02 19:45] LABS: Alanine Aminotransferase 16 IU/L (<35); Albumin 2.3 g/dL (3.5-5.0); Albumin Globulin Ratio 0.8 (1.0-2.8); Alkaline Phosphatase 91 U/L (38-126); Aspartate Aminotransferase 21 IU/L (14-36); Bilirubin Total 0.2 mg/dL (0.2-1.3); Blood Urea Nitrogen 20 mg/dL (7-17); Calcium 6.7 mg/dL (8.4-10.2); Carbon Dioxide 21 mmol/L (22-32); Chloride 106 mmol/L (98-107); Estimated Glomerular Filt Rate > 60 mL/min (>60); Glucose 135 mg/dL (80-110); HEMOLYSIS < 15 (0-50); Potassium 3.2 mmol/L (3.4-5.1); Sodium 135 mmol/L (137-145); Total Protein 5.3 g/dL (6.3-8.2)
--- NOTE | 2022-02-02 20:26 | PC.NURSE ---
Addendum entered by Yoselyn Boyce R.N. 02/03/22 06:09: blood pressure decreasing to 80's over 50's and precedex decreased to 0.8mg and closely monitoring blood pressure. Addendum entered by Yoselyn Boyce R.N. 02/03/22 05:01: Attempting to wean propofol, decreased to 25 and increased precedex to 1. Waiting 45-50 minutes and patient with heart rate slowly increasing and blood pressure increasing. Slowly starting to duenas ventilator and trying to bite tube. Propofol increased back to 30 mcg. Given immodium at 0400 and stool slowly decreasing. Addendum entered by Yoselyn Boyce R.N. 02/03/22 02:22: Potassium replacement given and [facility] contacted for order for rectal tube. Patient buttocks and perineal area reddened, excoriated with small open area. Watery diarrhea noted unable to keep patient clean. Unable to locate rectal tube, [facility] contacted again and new orders noted. Immodium to be given, and [facility] notified of blood secretions removed from ET tube. Addendum entered by Yoselyn Boyce R.N. 02/02/22 20:31: Calling [facility] with results of 1999 cmp, Potassium remains low despite replacement on day shift. New orders noted. Original Note: Patient awakening from sedation slowly, heart rate increasing to 100-110, blood pressure increasing. Precedex increased to 0.8 and awaiting results. tubefeeding increased to 30cc/hr. Patient suctioned, all extremities floated and foam booties applied to heels. Patient turned without difficulities.
[2022-02-02] MEDS: VENLAFAXINE 37.5 MG TABLET PO (21:03)
[2022-02-02] MEDS: POTASSIUM CHLORIDE 20 MEQ/15 ML UDC 40 MEQ PO (21:03)
[2022-02-02] MEDS: dexmedeTOMIDine in 0.9 % NaCL 400 MCG/100 ML PLAST..BAG 14.62 MCG IV (22:09)
--- NOTE | 2022-02-02 22:23 | PM.ICURNDS ---
- Date Patient Seen: 02/02/22 Time Patient Seen: 22:10 :: This patient was seen via real time interactive two-way audiovisual telecommunication. Note: 62 y.o. w/ COVID-19 acute hypoxic respiratory failure, EtOH withdrawal, E. coli UTI and possible MSSA bacterema (although 1 /2 blood culture sets [+]) and pneumonia superinfection. RN reports that patient failed SBT w/ tachypnea, tachycardia. INTERVENTIONS: 1) Lasix 40 mg IV x 1 2) KCL 40 mEq FT x 1 3) Instructed RN to maximize Precedex and wean propofol in preparation for SAT/SBT in AM
[2022-02-02] MEDS: FUROSEMIDE 40 MG/4 ML VIAL IV (23:11)
[2022-02-02] MEDS: POTASSIUM CHLORIDE 20 MEQ/15 ML UDC 40 MEQ TUBE (23:11)
[2022-02-03] VITALS (98 sets, daily range): BP systolic 88–179; BP diastolic 50–78; PULSE 78–121; RESP 13–24; TEMP 36.6–37.2; O2SAT 91–100
[2022-02-03] MEDS: propofoL 1,000 MG/100 ML VIAL 13.064 MG IV ×4 (02:04→23:14)
[2022-02-03] MEDS: ALBUTEROL 2.5 MG/3 ML NEB (ADULT) INH ×2 (03:10→13:37)
[2022-02-03] MEDS: LOPERAMIDE 2 MG CAPSULE 4 MG PO (03:51)
[2022-02-03] MEDS: CHLORHEXIDINE GLUCONATE 15 ML CUP PO ×3 (03:51→16:34)
[2022-02-03] MEDS: dexmedeTOMIDine in 0.9 % NaCL 400 MCG/100 ML PLAST..BAG 18.275 MCG IV (04:03)
[2022-02-03 04:20] LABS: BUN Creatinine Ratio 30.1 (6-22); Blood Urea Nitrogen 28 mg/dL (7-17); Calcium 7.7 mg/dL (8.4-10.2); Carbon Dioxide 23 mmol/L (22-32); Chloride 102 mmol/L (98-107); Estimated Glomerular Filt Rate > 60 mL/min (>60); Glucose 142 mg/dL (80-110); HEMOLYSIS < 15 (0-50); Magnesium 2.4 mg/dL (1.6-2.3); Phosphorous 3.6 mg/dL (2.8-4.1); Potassium 3.9 mmol/L (3.4-5.1); Sodium 134 mmol/L (137-145)
[2022-02-03 04:22] LABS: Hemoglobin 9.8 g/dL (12.0-16.0); Mean Corpuscular HGB Conc 32.6 % (30-36); Mean Corpuscular Hemoglobin 31.7 PG (26-34); Mean Corpuscular Volume 97.2 fL (80-100); Platelet Count 298 X10^3/uL (150-400); Red Blood Cell Count 3.08 X10^6/uL (4.0-5.2); Red Cell Distribution Width 14.8 % (11.6-14.8); White Blood Cell Count 21.5 X10^3/uL (4.5-11.0)
[2022-02-03 04:24] LABS: Add Manual Diff / Slide Review YES
[2022-02-03 05:02] LABS: Total Cells Counted 100
[2022-02-03 05:03] LABS: RBC Morphology Normal Morphology
[2022-02-03] MEDS: HEPARIN 5,000 UNIT/ML VIAL 5000 UNIT SUBCUT ×3 (06:08→20:58)
[2022-02-03] MEDS: ALBUTEROL/IPRATROPIUM 3 ML AMPUL INH ×5 (07:23→22:24)
[2022-02-03] MEDS: cefTRIAXone 2,000 MG in SODIUM CHLORIDE 0.9% 100 ML 200 MG IV (08:55)
[2022-02-03] MEDS: DEXAMETHASONE 10 MG/ML VIAL 6 MG IV (08:56)
[2022-02-03] MEDS: FAMOTIDINE 20 MG/2 ML VIAL IV ×2 (08:56→20:58)
[2022-02-03] MEDS: MULTIVITAMIN 1 TABLET 1 TAB PO (08:57)
[2022-02-03] MEDS: FOLIC ACID 1 MG TABLET PO (08:57)
[2022-02-03] MEDS: VENLAFAXINE 37.5 MG TABLET PO ×2 (08:57→20:58)
[2022-02-03] MEDS: REMDESIVIR 100 MG in SODIUM CHLORIDE 0.9% 230 ML 250 MG IV (09:01)
[2022-02-03] MEDS: NICOTINE 14 PATCH 14 MG TOP (09:04)
[2022-02-03] MEDS: BUDESONIDE 0.5 MG/2 ML NEB INH ×2 (09:25→19:39)
[2022-02-03] MEDS: fentaNYL 1,000 MCG in DEXTROSE 5% IN WATER 230 ML 18.144 MCG IV ×2 (10:18→23:56)
--- NOTE | 2022-02-03 10:27 | P.TELICUPN_ITS ---
Subjective Subjective IF CAMERA ACTIVATED, patient seen via real-time interactive audiovisual communication: Camera activated Consent obtained for tele-manager global care: Yes Patient Location: ICU Provider location (State): [place] Other participants/roles: Dr. Ernst, bedside nurse, RT Current Medications Current Medications Medications: Home Medications leflunomide 20 mg tablet 20 mg PO DAILY #90 tabs 12/04/20 [Rx Confirmed 1 04/02/21] colchicine 0.6 mg capsule See Rx Instructions .Route .COMPLEX #180 caps 12/31/20 [Rx Confirmed 01/30/22] atorvastatin 20 mg tablet 20 mg PO DAILY #90 tabs 08/20/21 [Rx Confirmed 01/30/22] hydrochlorothiazide 25 mg tablet 25 mg PO DAILY #90 tabs 08/20/21 [Rx Confirmed 01/30/22] metoprolol tartrate 50 mg tablet 50 mg PO BID #180 tabs 08/20/21 [Rx Confirmed 01/30/22] nortriptyline 50 mg capsule 50 mg PO DAILY #90 caps 08/20/21 [Rx Confirmed 01/30/22] pregabalin 150 mg capsule 150 mg PO BID #180 caps 08/20/21 [Rx Confirmed 01/30/22] venlafaxine 37.5 mg capsule,extended release 24 hr 37.5 mg PO 2XD 01/30/22 [History Confirmed 01/30/22] Visit Medications (administered) Generic Name Dose Route Start Last Admin Trade Name Freq PRN Reason Stop Dose Admin Albuterol 2.5 mg 01/30/22 16:37 02/03/22 03:10 Albuterol 2.5 Mg/3 Ml Neb (Adult) INH 2.5 mg [id number] PRN Administration Shortness Of Breath Albuterol/Ipratropium 3 ml 01/30/22 19:00 02/03/22 07:23 Albuterol/Ipratropium 3 Ml Ampul INH 3 ml [id number] MELVIN Administration Chlorhexidine Gluconate 15 ml 02/02/22 16:00 02/03/22 03:51 Chlorhexidine Gluconate 15 Ml Cup PO 15 ml Q6H MELVIN Administration Dexamethasone 6 mg 01/31/22 09:00 02/03/22 08:56 Dexamethasone 10 Mg/Ml Vial IV 6 mg DAILY MELVIN Administration Famotidine 20 mg 02/01/22 10:45 02/03/22 08:56 Famotidine 20 Mg/2 Ml Vial IV 20 mg BID MELVIN Administration Folic Acid 1 mg 01/31/22 09:00 02/03/22 08:57 Folic Acid 1 Mg Tablet PO 1 mg DAILY MELVIN Administration Heparin Sodium (Porcine) 5,000 unit 01/31/22 06:00 02/03/22 06:08 Heparin 5,000 Unit/Ml Vial SUBCUT 5,000 unit Q8HR MELVIN Administration Heparin Sodium (Porcine) 50 unit 02/02/22 00:45 02/03/22 09:04 Heparin Flush (Cl/Picc/Mid-Line) 50 Unit/5 Ml Syringe IV 50 unit BID MELVIN Administration Azithromycin 500 mg/ Dextrose 250 mls @ 250 mls/hr 01/30/22 15:17 02/02/22 17:49 IV 02/03/22 16:16 Infused Q24H MELVIN Infusion Propofol 1,000 mg in 100 mls @ 2.177 mls/hr 01/31/22 03:45 02/03/22 04:59 Propofol IV 30 mcg/kg/min TITRATE MELVIN 13.064 mls/hr Titration Protocol 5 MCG/KG/MIN Fentanyl 1,000 mcg/ Dextrose 250 mls @ 12.701 mls/hr 01/31/22 04:00 02/03/22 10:18 IV 1 mcg/kg/hr TITRATE MELVIN 18.144 mls/hr Administration Protocol 0.7 MCG/KG/HR NOREPINEPHRINE BITARTRATE/D5W 4 mg in 250 mls @ 30 mls/hr 01/31/22 07:09 02/01/22 02:48 Levophed IV 0 mcg/min TITRATE MELVIN 0 mls/hr Titration Protocol 8 MCG/MIN Midazolam HCl 50 mg/ Dextrose 250 mls @ 25 mls/hr 01/31/22 18:30 02/02/22 05:06 IV 0 mg/hr TITRATE MELVIN 0 mls/hr Infusion Protocol 5 MG/HR Remdesivir 100 mg/ Sodium 250 mls @ 250 mls/hr 02/01/22 11:00 02/03/22 09:01 Chloride IV 02/09/22 09:59 250 mls/hr DAILY MELVIN Administration dexmedeTOMIDine in 0.9 % NaCL 400 mcg in 100 mls @ 3.655 mls/hr 02/02/22 13:00 02/03/22 06:03 Precedex IV 0.8 mcg/kg/hr TITRATE MELVIN 14.62 mls/hr Titration Protocol 0.2 MCG/KG/HR Ceftriaxone Sodium 2,000 mg/ 100 mls @ 200 mls/hr 02/03/22 08:00 02/03/22 08:55 Sodium Chloride IV 200 mls/hr Q24H MELVIN Administration Loperamide HCl 4 mg 02/03/22 03:17 02/03/22 03:51 Loperamide 2 Mg Capsule PO 4 mg PRN PRN Administration Diarrhea Multivitamins 1 tab 01/31/22 09:00 02/03/22 08:57 Multivitamin 1 Tablet PO 1 tab DAILY MELVIN Administration Nicotine 14 mg 01/31/22 09:00 02/03/22 09:04 Nicotine 14 Patch TOP 14 mg DAILY MELVIN Administration Venlafaxine HCl 37.5 mg 02/02/22 21:00 02/03/22 08:57 Venlafaxine 37.5 Mg Tablet PO 37.5 mg BID MELVIN Administration Objective Ventilator Parameters: Ventilator Settings Pressure Control 15 FiO2 30 RT Vent Frequency 18 Ventilator Tidal Volume 390 Exhaled Vt/kg IBW 6 Positive End Expiratory 5 Pressure Inspiratory Phase Time 0.7 I:E Ratio 1:3.2 Patient Position HOB >= 30 degrees Labs Result Diagrams: 02/03/22 04:00 02/03/22 04:00 Labs: Laboratory Results - last 24 hr 02/02/22 02/02/22 02/03/22 19:10 19:30 04:00 WBC 21.5 H RBC 3.08 L Hgb 9.8 L Hct 30.0 L MCV 97.2 MCH 31.7 MCHC 32.6 RDW 14.8 Plt Count 298 Neut % (Auto) Not Reportable Lymph % (Auto) Not Reportable [place] % (Auto) Not Reportable Eos % (Auto) Not Reportable Baso % (Auto) Not Reportable Lymph # (Auto) Not Reportable [place] # (Auto) Not Reportable Baso # (Auto) Not Reportable Total Counted 100 Seg Neutrophils % 91.0 H Band Neutrophils % 3.0 Lymphocytes % (Manual) 2.0 L Monocytes % (Manual) 4.0 Neutrophils # (Manual) 41849 H RBC Morphology Normal morphology Sodium 135 L Potassium 3.2 L Chloride 106 Carbon Dioxide 21 L BUN 20 H Creatinine 0.77 Estimated GFR > 60 BUN/Creatinine Ratio 26.0 H Glucose 135 H Calcium 6.7 L Phosphorus Magnesium Total Bilirubin 0.2 AST 21 ALT 16 Alkaline Phosphatase 91 Total Protein 5.3 L Albumin 2.3 L Globulin 3.0 Albumin/Globulin Ratio 0.8 L Vancomycin Trough Cancelled 02/03/22 04:00 WBC RBC Hgb Hct MCV MCH MCHC RDW Plt Count Neut % (Auto) Lymph % (Auto) [place] % (Auto) Eos % (Auto) Baso % (Auto) Lymph # (Auto) [place] # (Auto) Baso # (Auto) Total Counted Seg Neutrophils % Band Neutrophils % Lymphocytes % (Manual) Monocytes % (Manual) Neutrophils # (Manual) RBC Morphology Sodium 134 L Potassium 3.9 Chloride 102 Carbon Dioxide 23 BUN 28 H Creatinine 0.93 Estimated GFR > 60 BUN/Creatinine Ratio 30.1 H Glucose 142 H Calcium 7.7 L Phosphorus 3.6 Magnesium 2.4 H Total Bilirubin AST ALT Alkaline Phosphatase Total Protein Albumin Globulin Albumin/Globulin Ratio Vancomycin Trough Exam Vital Signs (past 8 hours): - 02/03/22 04:00 02/03/22 04:00 02/03/22 03:10 Temperature Pulse Rate 90 Respiratory Rate 23 Blood Pressure Pulse Oximetry 94 94 Oxygen Delivery Method Mechanical Ventilation Mechanical Ventilation Mechanical Ventilation Fraction of Inspired Oxygen 35 02/03/22 02:30 02/03/22 02:30 02/03/22 02:45 Temperature Pulse Rate 91 H Respiratory Rate 17 Blood Pressure 113/59 L 103/58 L Pulse Oximetry 93 Oxygen Delivery Method Fraction of Inspired Oxygen 02/03/22 02:45 02/03/22 03:00 02/03/22 03:00 Temperature Pulse Rate 92 H 90 Respiratory Rate 16 16 Blood Pressure 104/59 L Pulse Oximetry 93 93 Oxygen Delivery Method Fraction of Inspired Oxygen 02/03/22 03:15 02/03/22 03:15 02/03/22 03:30 Temperature Pulse Rate 91 H 95 H Respiratory Rate 16 14 Blood Pressure 144/78 H Pulse Oximetry 93 93 Oxygen Delivery Method Fraction of Inspired Oxygen 02/03/22 03:30 02/03/22 03:45 02/03/22 03:45 Temperature Pulse Rate 96 H Respiratory Rate 13 Blood Pressure 109/67 118/64 Pulse Oximetry 93 Oxygen Delivery Method Fraction of Inspired Oxygen 02/03/22 04:00 02/03/22 04:00 02/03/22 04:15 Temperature Pulse Rate 99 H 101 H Respiratory Rate 18 20 Blood Pressure 123/71 Pulse Oximetry 92 92 Oxygen Delivery Method Fraction of Inspired Oxygen 02/03/22 04:15 02/03/22 04:28 02/03/22 04:30 Temperature Pulse Rate 104 H 104 H Respiratory Rate 19 17 Blood Pressure 125/65 Pulse Oximetry 93 94 Oxygen Delivery Method Fraction of Inspired Oxygen 02/03/22 04:30 02/03/22 04:45 02/03/22 04:45 Temperature 97.9 F Pulse Rate 97 H Respiratory Rate 19 Blood Pressure 126/72 137/65 Pulse Oximetry 93 Oxygen Delivery Method Fraction of Inspired Oxygen 02/03/22 05:00 02/03/22 05:00 02/03/22 05:07 Temperature Pulse Rate 96 H 95 H Respiratory Rate 18 21 Blood Pressure 125/60 Pulse Oximetry 92 93 Oxygen Delivery Method Fraction of Inspired Oxygen 02/03/22 05:15 02/03/22 05:15 02/03/22 05:30 Temperature Pulse Rate 92 H Respiratory Rate 14 Blood Pressure 102/52 L 100/55 L Pulse Oximetry 93 Oxygen Delivery Method Fraction of Inspired Oxygen 02/03/22 05:30 02/03/22 05:45 02/03/22 05:45 Temperature Pulse Rate 92 H 90 Respiratory Rate 15 16 Blood Pressure 91/51 L Pulse Oximetry 94 93 Oxygen Delivery Method Fraction of Inspired Oxygen 02/03/22 06:00 02/03/22 06:00 02/03/22 06:15 Temperature Pulse Rate 88 87 Respiratory Rate 18 16 Blood Pressure 88/50 L Pulse Oximetry 94 94 Oxygen Delivery Method Fraction of Inspired Oxygen 02/03/22 06:15 02/03/22 06:30 02/03/22 06:30 Temperature Pulse Rate 87 Respiratory Rate 17 Blood Pressure 91/51 L 94/55 L Pulse Oximetry 94 Oxygen Delivery Method Fraction of Inspired Oxygen 02/03/22 06:45 02/03/22 06:45 02/03/22 07:00 Temperature Pulse Rate 85 Respiratory Rate 16 Blood Pressure 95/52 L 95/50 L Pulse Oximetry 94 Oxygen Delivery Method Fraction of Inspired Oxygen 02/03/22 07:00 02/03/22 07:14 02/03/22 08:00 Temperature Pulse Rate 86 87 Respiratory Rate 17 17 Blood Pressure 147/67 H Pulse Oximetry 94 94 Oxygen Delivery Method Fraction of Inspired Oxygen 02/03/22 08:00 Temperature Pulse Rate 103 H Respiratory Rate 21 Blood Pressure Pulse Oximetry 92 Oxygen Delivery Method Fraction of Inspired Oxygen Fraction of Inspired Oxygen 35 SaO2/FiO2 Ratio 268 Oxygen Delivery Method Mechanical Ventilation Oxygen Flow Rate 38 Assessment & Plan Assessment & Plan narrative: patient seen with [facility] nurse and provider Dr. Ernst chart/labs/imaging reviewed 62y ear old female admitted to ICU with: acute respiratory failure covid pneumonia etoh withdrawal currently afebrile, HR stable intubated, sedated, failed SAH/SBT this am suggest -neurochecks/seizure precautions -goal RASS -1 -daily SAH/SBT trials. failed today -avoid versed/benozos unless seizure activity -start librium 50mg tid, if remains agitated/combative off drips can increase dose -continue pcredex, wean off of propofol/fentantyl -continue thiamine/folate -check US of right lung, if effusion significant suggest thoracentesis/pigtail -vent support, keep sat above 92%, vent settings are minimal -chest pt/pulm toilet -steroids/redesevir for covid -rocephin/azithro for mssa/e.coli, repeat bcx pending -echo ef70%, valves clear -monitor ins/outs -replace lytes prn -gi/dvt ppx -please call eICU if condition changes total ccm time 55 mins Time Spent With Patient Critical Care time: I spent a total of [] minutes of critical care time on this patient's care today; this time is exclusive of procedural time.
[2022-02-03] MEDS: chlordiazePOXIDE 25 MG CAPSULE 50 MG PO ×2 (11:15→20:58)
--- NOTE | 2022-02-03 13:58 | PC.NURSE ---
Day shift note: Pt. is currently ventilated FiO2 38% TV 390 RR 18 PEEP 5, gtts are Propofol, fentanyl, Precedex, see emar for current dosing. Pt. is diaphoretic, lungs tight and diminished, SR-ST on telemetry with HTN. It is noted that pt. has redness to bilateral groin and sacrum is reddened and excoriated, her extremities are mottled with PVD. Pt stooling frequently, request for rectal tube placed. Pt. bridged with pillows and has bilateral wrist restraints, givens catheter patent and draining clear yellow urine, tube feeding @ 40cc which is goal. Bed low and locked, call light within reach, will continue to monitor.
[2022-02-03] MEDS: AZITHROMYCIN 500 MG in DEXTROSE 5% IN WATER 250 ML 250 MG IV (15:42)
[2022-02-03] MEDS: dexmedeTOMIDine in 0.9 % NaCL 400 MCG/100 ML PLAST..BAG 14.62 MCG IV ×2 (15:43→22:30)
--- NOTE | 2022-02-03 15:44 | PM.PN.1 ---
Subjective Subjective Date Patient Seen: 02/03/22 Time Patient Seen: 08:00 Interval history: Patient seen this AM with RECORD RETRIEVAL SPECIALIST and physician, and also separately. Early this morning she had sedation holiday and became agitated, diaphoretic, tachycardic, and hypertensive. SBT not attempted. She is now resedated Exam Vital Signs (past 8 hours): - 02/03/22 08:00 02/03/22 08:00 02/03/22 09:00 Temperature 98.9 F Pulse Rate 103 H Respiratory Rate 21 Blood Pressure 147/67 H 141/78 H Pulse Oximetry 92 Oxygen Delivery Method Oxygen Flow Rate 02/03/22 09:00 02/03/22 09:15 02/03/22 09:15 Temperature Pulse Rate 121 H 116 H Respiratory Rate 18 16 Blood Pressure 117/75 Pulse Oximetry 91 93 Oxygen Delivery Method Oxygen Flow Rate 02/03/22 09:30 02/03/22 09:30 02/03/22 10:00 Temperature Pulse Rate 104 H Respiratory Rate Blood Pressure 126/76 124/55 L Pulse Oximetry 95 Oxygen Delivery Method Oxygen Flow Rate 02/03/22 10:00 02/03/22 10:15 02/03/22 10:15 Temperature Pulse Rate 93 H 90 Respiratory Rate 13 13 Blood Pressure 105/59 L Pulse Oximetry 96 97 Oxygen Delivery Method Oxygen Flow Rate 02/03/22 10:30 02/03/22 10:30 02/03/22 08:00 Temperature Pulse Rate 90 Respiratory Rate 14 Blood Pressure 152/65 H Pulse Oximetry 96 96 Oxygen Delivery Method Mechanical Ventilation Oxygen Flow Rate 02/03/22 08:00 02/03/22 11:59 02/03/22 12:00 Temperature Pulse Rate Respiratory Rate Blood Pressure Pulse Oximetry 98 Oxygen Delivery Method Mechanical Ventilation Mechanical Ventilation Mechanical Ventilation Oxygen Flow Rate 35 02/03/22 11:00 02/03/22 11:00 02/03/22 11:15 Temperature Pulse Rate 90 Respiratory Rate 13 Blood Pressure 129/74 129/64 Pulse Oximetry 96 Oxygen Delivery Method Oxygen Flow Rate 02/03/22 11:15 02/03/22 11:30 02/03/22 11:30 Temperature Pulse Rate 91 H 87 Respiratory Rate 14 14 Blood Pressure 129/61 Pulse Oximetry 98 97 Oxygen Delivery Method Oxygen Flow Rate 02/03/22 12:00 02/03/22 12:00 02/03/22 12:15 Temperature Pulse Rate 98 H Respiratory Rate 15 Blood Pressure 154/77 H 140/66 Pulse Oximetry 94 Oxygen Delivery Method Oxygen Flow Rate 02/03/22 12:15 02/03/22 12:30 02/03/22 12:30 Temperature Pulse Rate 102 H 103 H Respiratory Rate 16 14 Blood Pressure 131/62 Pulse Oximetry 95 94 Oxygen Delivery Method Oxygen Flow Rate 02/03/22 13:00 02/03/22 13:00 02/03/22 13:15 Temperature Pulse Rate 91 H Respiratory Rate 17 Blood Pressure 102/54 L 103/57 L Pulse Oximetry 94 Oxygen Delivery Method Oxygen Flow Rate 02/03/22 13:15 02/03/22 13:30 02/03/22 13:30 Temperature Pulse Rate 87 87 Respiratory Rate 18 18 Blood Pressure 102/58 L Pulse Oximetry 95 95 Oxygen Delivery Method Oxygen Flow Rate 02/03/22 14:00 02/03/22 14:00 02/03/22 14:15 Temperature Pulse Rate 91 H Respiratory Rate 18 Blood Pressure 110/55 L 118/56 L Pulse Oximetry 96 Oxygen Delivery Method Oxygen Flow Rate 02/03/22 14:15 02/03/22 14:30 02/03/22 14:30 Temperature Pulse Rate 90 89 Respiratory Rate 17 18 Blood Pressure 112/59 L Pulse Oximetry 96 96 Oxygen Delivery Method Oxygen Flow Rate 02/03/22 15:00 02/03/22 15:00 02/03/22 15:15 Temperature 98.9 F Pulse Rate 86 Respiratory Rate 18 Blood Pressure 113/55 L 112/56 L Pulse Oximetry 96 Oxygen Delivery Method Oxygen Flow Rate 02/03/22 15:15 Temperature Pulse Rate 84 Respiratory Rate 18 Blood Pressure Pulse Oximetry 96 Oxygen Delivery Method Oxygen Flow Rate Fraction of Inspired Oxygen 35 SaO2/FiO2 Ratio 268 Oxygen Delivery Method Mechanical Ventilation Oxygen Flow Rate 35 Narrative Exam Narrative: GEN:? Ill-appearing middle-aged female, intubated and sedated CV: regular rate and rhythm, no murmurs PULM: coarse breath sounds ABD: Soft, NT/ND, BT present in all 4 quadrants, no organomegaly or masses EXTR: warm, poor skin both legs with dry plantar feet, left third toe amputation NEURO:? Intubated/sedated, nonfocal Objective Labs Result Diagrams: 02/03/22 04:00 02/03/22 04:00 Labs: Laboratory Results - last 24 hr 02/02/22 02/03/22 02/03/22 19:10 04:00 04:00 WBC 21.5 H RBC 3.08 L Hgb 9.8 L Hct 30.0 L MCV 97.2 MCH 31.7 MCHC 32.6 RDW 14.8 Plt Count 298 Neut % (Auto) Not Reportable Lymph % (Auto) Not Reportable [place] % (Auto) Not Reportable Eos % (Auto) Not Reportable Baso % (Auto) Not Reportable Lymph # (Auto) Not Reportable [place] # (Auto) Not Reportable Baso # (Auto) Not Reportable Total Counted 100 Seg Neutrophils % 91.0 H Band Neutrophils % 3.0 Lymphocytes % (Manual) 2.0 L Monocytes % (Manual) 4.0 Neutrophils # (Manual) 19868 H RBC Morphology Normal morphology Sodium 135 L 134 L Potassium 3.2 L 3.9 Chloride 106 102 Carbon Dioxide 21 L 23 BUN 20 H 28 H Creatinine 0.77 0.93 Estimated GFR > 60 > 60 BUN/Creatinine Ratio 26.0 H 30.1 H Glucose 135 H 142 H Calcium 6.7 L 7.7 L Phosphorus 3.6 Magnesium 2.4 H Total Bilirubin 0.2 AST 21 ALT 16 Alkaline Phosphatase 91 Total Protein 5.3 L Albumin 2.3 L Globulin 3.0 Albumin/Globulin Ratio 0.8 L PFSH Medical History Alcohol dependence Anemia Anxiety Chronic back pain (~2013) COVID-19 virus infection Degenerative joint disease (DJD) of lumbar spine (~1975) Hyperlipidemia Hypertension Osteoarthritis (~2013) Pneumonia Rheumatoid arthritis (~2009) Scoliosis (~1975) Tobacco dependence Surgical History Anesthesia History of amputation of toe (~2018) History of incision and drainage (03/19/20) Status post left foot surgery (08/23/20) Family History Father Cancer Hypertension Hyperlipidemia Mother Hypertension Brother Testicular cancer Hypertension Brother Diabetes mellitus Hypertension Hyperlipidemia Social History household members: significant other and family Smoking Status: Current every day smoker Tobacco: How many years used: 40 quit status: quit date established (September 08 2020) second hand exposure: No alcohol intake: current substance use type: does not use Assessment & Plan Assessment & Plan narrative: 1. Acute hypoxic respiratory failure Etiology is felt to be COVID pneumonia.? Possible superimposed bacterial pneumonia as well.? 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 As she is negative for MRSA, vanco dc'd Failed sedation vacation quickly this AM, no SBT therefore attempted 2. Leukocytosis -etiology not clear -could be steroids -but also has had thicker sputum today per RT, sputum culture sent 3. COVID pneumonia Continues remdesivir/dex. Neb treatments being given regularly as well. Given her underlying smoking hx, she likely has a component of undiagnosed COPD. Therefore start budesonide today 4. Alcohol dependence complicated by withdrawal Pt is now off versed as noted above. Received 4 doses of IV phenobarb 260mg on 02/01 and then stopped after loaded Also on precedex starting 02/02 Started Librium 02/03 with goal of reduce sedation drips 5. Staph bacteremia Staph positive in blood cultures. Repeat pending. Only one bottle positive Etiology of staph unknown but PCR testing makes it less likely Staph Aurues as was negative On 02/03 requested lab workup of staph species 4. E coli UTI Pansensitive e coli. On ceftriaxone as above 5. Septic shock, resolving -off pressors on 02/03 6. Acute metabolic encephalopathy Likely multifactorial from shock and alcohol withdrawal.? Plan to wean sedation as noted. 7. PAUL, resolved 8. Rheumatoid arthritis Holding leflunomide due to infection 9. Hypertension -hold home meds due to septic shock presentation 10. Anxiety On venlafaxine 11. Tobacco dependence Nicotine patch is in place Time Spent With Patient Critical Care time: I spent a total of [] minutes of critical care time on this patient's care today; this time is exclusive of procedural time.
--- NOTE | 2022-02-03 19:47 | PM.ICURNDS ---
- Date Patient Seen: 02/03/22 Time Patient Seen: 19:47 :: This patient was seen via real time interactive two-way audiovisual telecommunication. Note: Sedated with propofol, fentanyl, and precedex. On librium therapy. Cont weaning down sedation to seek RASS goal -1 to 0. D/w RN.
[2022-02-04] VITALS (101 sets, daily range): BP systolic 100–176; BP diastolic 54–115; PULSE 77–106; RESP 17–22; TEMP 36.4–37; O2SAT 85–100
[2022-02-04] MEDS: CHLORHEXIDINE GLUCONATE 15 ML CUP PO ×4 (04:07→21:03)
[2022-02-04] MEDS: dexmedeTOMIDine in 0.9 % NaCL 400 MCG/100 ML PLAST..BAG 14.62 MCG IV (04:18)
[2022-02-04] MEDS: propofoL 1,000 MG/100 ML VIAL 10.886 MG IV ×2 (05:10→11:24)
[2022-02-04] MEDS: HEPARIN 5,000 UNIT/ML VIAL 5000 UNIT SUBCUT ×3 (06:01→21:01)
--- NOTE | 2022-02-04 06:07 | PC.NURSE ---
Addendum entered by Yoselyn Boyce R.N. 02/04/22 06:53: blood pressure climbing higher, diastolic 115, propofol increased to 40mcg, awaiting response. Addendum entered by Yoselyn Boyce R.N. 02/04/22 06:21: Patient beginning to duenas ventilator, respiratory rate increasing to vbetween 26-30, blood pressure increasing to 170's systolic and heart rate rapidly increasing to 120's. Propofol increased back to 30mcg. Original Note: Rectal tube inserted due to large amount of diarrhea and tube feeds held until am. Tube feedings held until 0500, minimal residual 20cc before restarting them. Propfol slowly weaning down to 20 mcg over 2 hours. Blood pressure and heart rate stable.
[2022-02-04] MEDS: BUDESONIDE 0.5 MG/2 ML NEB INH ×2 (07:41→20:58)
[2022-02-04] MEDS: ALBUTEROL/IPRATROPIUM 3 ML AMPUL INH ×4 (07:41→23:59)
[2022-02-04] MEDS: cefTRIAXone 2,000 MG in SODIUM CHLORIDE 0.9% 100 ML 200 MG IV (07:52)
[2022-02-04] MEDS: NICOTINE 14 PATCH 14 MG TOP (07:52)
[2022-02-04] MEDS: VENLAFAXINE 37.5 MG TABLET PO ×2 (07:53→20:48)
[2022-02-04] MEDS: FOLIC ACID 1 MG TABLET PO (07:53)
[2022-02-04] MEDS: chlordiazePOXIDE 25 MG CAPSULE 50 MG PO ×2 (07:53→10:05)
[2022-02-04] MEDS: MULTIVITAMIN 1 TABLET 1 TAB PO (07:54)
[2022-02-04] MEDS: DEXAMETHASONE 10 MG/ML VIAL 6 MG IV (07:54)
[2022-02-04] MEDS: FAMOTIDINE 20 MG/2 ML VIAL IV ×2 (07:54→20:48)
--- NOTE | 2022-02-04 09:53 | P.TELICUPN_ITS ---
Subjective Subjective IF CAMERA ACTIVATED, patient seen via real-time interactive audiovisual communication: Camera activated Consent obtained for tele-private tutor care: Yes Patient Location: ICU Provider location (State): [place] Other participants/roles: Dr. Dill, bedside nursing, RT Current Medications Current Medications Medications: Home Medications leflunomide 20 mg tablet 20 mg PO DAILY #90 tabs 12/04/20 [Rx Confirmed 01/30/22] colchicine 0.6 mg capsule See Rx Instructions .Route .COMPLEX #180 caps 12/31/20 [Rx Confirmed 01/30/22] atorvastatin 20 mg tablet 20 mg PO DAILY #90 tabs 08/20/21 [Rx Confirmed 01/30/22] hydrochlorothiazide 25 mg tablet 25 mg PO DAILY #90 tabs 08/20/21 [Rx Confirmed 01/30/22] metoprolol tartrate 50 mg tablet 50 mg PO BID #180 tabs 08/20/21 [Rx Confirmed 01/30/22] nortriptyline 50 mg capsule 50 mg PO DAILY #90 caps 08/20/21 [Rx Confirmed 01/30/22] pregabalin 150 mg capsule 150 mg PO BID #180 caps 08/20/21 [Rx Confirmed 01/30/22] venlafaxine 37.5 mg capsule,extended release 24 hr 37.5 mg PO 2XD 01/30/22 [History Confirmed 01/30/22] Visit Medications (administered) Generic Name Dose Route Start Last Admin Trade Name Freq PRN Reason Stop Dose Admin Albuterol 2.5 mg 01/30/22 16:37 02/03/22 13:37 Albuterol 2.5 Mg/3 Ml Neb (Adult) INH 2.5 mg [id number] PRN Administration Shortness Of Breath Albuterol/Ipratropium 3 ml 01/30/22 19:00 02/04/22 07:41 Albuterol/Ipratropium 3 Ml Ampul INH 3 ml [id number] MELVIN Administration Budesonide 0.5 mg 02/03/22 20:00 02/04/22 07:41 Budesonide 0.5 Mg/2 Ml Neb INH 0.5 mg RTBID MELVIN Administration Chlorhexidine Gluconate 15 ml 02/02/22 16:00 02/04/22 04:07 Chlorhexidine Gluconate 15 Ml Cup PO 15 ml Q6H MELVIN Administration Dexamethasone 6 mg 01/31/22 09:00 02/04/22 07:54 Dexamethasone 10 Mg/Ml Vial IV 6 mg DAILY MELVIN Administration Famotidine 20 mg 02/01/22 10:45 02/04/22 07:54 Famotidine 20 Mg/2 Ml Vial IV 20 mg BID MELVIN Administration Folic Acid 1 mg 01/31/22 09:00 02/04/22 07:53 Folic Acid 1 Mg Tablet PO 1 mg DAILY MELVIN Administration Heparin Sodium (Porcine) 5,000 unit 01/31/22 06:00 02/04/22 06:01 Heparin 5,000 Unit/Ml Vial SUBCUT 5,000 unit Q8HR MELVIN Administration Heparin Sodium (Porcine) 50 unit 02/02/22 00:45 02/04/22 07:54 Heparin Flush (Cl/Picc/Mid-Line) 50 Unit/5 Ml Syringe IV 50 unit BID MELVIN Administration Propofol 1,000 mg in 100 mls @ 2.177 mls/hr 01/31/22 03:45 02/04/22 08:20 Propofol IV 35 mcg/kg/min TITRATE MELVIN 15.241 mls/hr Titration Protocol 5 MCG/KG/MIN Fentanyl 1,000 mcg/ Dextrose 250 mls @ 12.701 mls/hr 01/31/22 04:00 02/03/22 23:56 IV 1 mcg/kg/hr TITRATE MELVIN 18.144 mls/hr Administration Protocol 0.7 MCG/KG/HR NOREPINEPHRINE BITARTRATE/D5W 4 mg in 250 mls @ 30 mls/hr 01/31/22 07:09 02/01/22 02:48 Levophed IV 0 mcg/min TITRATE MELVIN 0 mls/hr Titration Protocol 8 MCG/MIN Midazolam HCl 50 mg/ Dextrose 250 mls @ 25 mls/hr 01/31/22 18:30 02/02/22 05:06 IV 0 mg/hr TITRATE MELVIN 0 mls/hr Infusion Protocol 5 MG/HR Remdesivir 100 mg/ Sodium 250 mls @ 250 mls/hr 02/01/22 11:00 02/04/22 08:20 Chloride IV 02/09/22 09:59 Infused DAILY MELVIN Infusion dexmedeTOMIDine in 0.9 % NaCL 400 mcg in 100 mls @ 3.655 mls/hr 02/02/22 13:00 02/04/22 08:20 Precedex IV 1 mcg/kg/hr TITRATE MELVIN 18.275 mls/hr Titration Protocol 0.2 MCG/KG/HR Ceftriaxone Sodium 2,000 mg/ 100 mls @ 200 mls/hr 02/03/22 08:00 02/04/22 07:52 Sodium Chloride IV 200 mls/hr Q24H MELVIN Administration Loperamide HCl 4 mg 02/03/22 03:17 02/03/22 03:51 Loperamide 2 Mg Capsule PO 4 mg PRN PRN Administration Diarrhea Multivitamins 1 tab 01/31/22 09:00 02/04/22 07:54 Multivitamin 1 Tablet PO 1 tab DAILY MELVIN Administration Nicotine 14 mg 01/31/22 09:00 02/04/22 07:52 Nicotine 14 Patch TOP 14 mg DAILY MELVIN Administration Venlafaxine HCl 37.5 mg 02/02/22 21:00 02/04/22 07:53 Venlafaxine 37.5 Mg Tablet PO 37.5 mg BID MELVIN Administration Objective Ventilator Parameters: Ventilator Settings Pressure Control 15 FiO2 25 RT Vent Frequency 18 Ventilator Tidal Volume 390 Exhaled Vt/kg IBW 6 Positive End Expiratory 5 Pressure Inspiratory Phase Time 0.7 I:E Ratio 1:3.2 Patient Position HOB >= 30 degrees Labs Result Diagrams: 02/03/22 04:00 02/03/22 04:00 Exam Vital Signs (past 8 hours): - 02/04/22 02:00 02/04/22 02:00 02/04/22 02:11 Temperature Pulse Rate 87 87 Respiratory Rate 18 18 Blood Pressure 111/57 L Pulse Oximetry 96 96 Oxygen Delivery Method 02/04/22 04:00 02/04/22 02:15 02/04/22 02:15 Temperature Pulse Rate 87 Respiratory Rate 18 Blood Pressure 108/57 L Pulse Oximetry 94 97 Oxygen Delivery Method Mechanical Ventilation 02/04/22 02:30 02/04/22 02:30 02/04/22 02:45 Temperature Pulse Rate 86 Respiratory Rate 18 Blood Pressure 106/56 L 104/55 L Pulse Oximetry 97 Oxygen Delivery Method 02/04/22 02:45 02/04/22 03:00 02/04/22 03:00 Temperature Pulse Rate 86 86 Respiratory Rate 18 18 Blood Pressure 105/57 L Pulse Oximetry 97 97 Oxygen Delivery Method 02/04/22 03:15 02/04/22 03:15 02/04/22 03:30 Temperature Pulse Rate 86 Respiratory Rate 18 Blood Pressure 107/58 L 107/57 L Pulse Oximetry 97 Oxygen Delivery Method 02/04/22 03:30 02/04/22 03:45 02/04/22 03:45 Temperature Pulse Rate 85 86 Respiratory Rate 18 18 Blood Pressure 109/58 L Pulse Oximetry 97 96 Oxygen Delivery Method 02/04/22 04:00 02/04/22 04:00 02/04/22 04:15 Temperature Pulse Rate 85 Respiratory Rate 18 Blood Pressure 106/56 L 104/59 L Pulse Oximetry 96 Oxygen Delivery Method 02/04/22 04:15 02/04/22 04:26 02/04/22 04:30 Temperature 97.9 F Pulse Rate 86 85 Respiratory Rate 18 18 Blood Pressure 105/57 L Pulse Oximetry 96 96 Oxygen Delivery Method 02/04/22 04:30 02/04/22 04:45 02/04/22 04:45 Temperature Pulse Rate 85 86 Respiratory Rate 18 18 Blood Pressure 103/57 L Pulse Oximetry 95 96 Oxygen Delivery Method 02/04/22 05:00 02/04/22 05:00 02/04/22 05:15 Temperature Pulse Rate 85 Respiratory Rate 18 Blood Pressure 107/56 L 130/61 Pulse Oximetry 97 Oxygen Delivery Method 02/04/22 05:15 02/04/22 05:29 02/04/22 05:30 Temperature Pulse Rate 90 92 H Respiratory Rate 18 18 Blood Pressure 130/59 L Pulse Oximetry 96 96 Oxygen Delivery Method 02/04/22 05:30 02/04/22 05:45 02/04/22 05:45 Temperature Pulse Rate 92 H 93 H Respiratory Rate 18 18 Blood Pressure 128/64 Pulse Oximetry 97 97 Oxygen Delivery Method 02/04/22 06:00 02/04/22 06:00 02/04/22 06:15 Temperature Pulse Rate 97 H 106 H Respiratory Rate 20 21 Blood Pressure 129/73 Pulse Oximetry 96 94 Oxygen Delivery Method 02/04/22 06:15 02/04/22 06:30 02/04/22 06:30 Temperature Pulse Rate 104 H Respiratory Rate 19 Blood Pressure 176/79 H 128/68 Pulse Oximetry 91 Oxygen Delivery Method 02/04/22 06:45 02/04/22 06:45 02/04/22 07:00 Temperature Pulse Rate 104 H 90 Respiratory Rate 20 18 Blood Pressure 162/115 H Pulse Oximetry 92 95 Oxygen Delivery Method 02/04/22 07:00 02/04/22 07:01 02/04/22 07:15 Temperature Pulse Rate 90 Respiratory Rate 18 Blood Pressure 103/56 L 103/56 L Pulse Oximetry 95 Oxygen Delivery Method 02/04/22 07:15 02/04/22 07:30 02/04/22 07:30 Temperature Pulse Rate 88 87 Respiratory Rate 18 17 Blood Pressure 104/58 L Pulse Oximetry 95 95 Oxygen Delivery Method 02/04/22 07:45 02/04/22 07:45 02/04/22 08:00 Temperature Pulse Rate 86 Respiratory Rate 18 Blood Pressure 102/59 L 105/58 L Pulse Oximetry 95 Oxygen Delivery Method 02/04/22 08:00 02/04/22 08:15 02/04/22 08:15 Temperature Pulse Rate 96 H 97 H Respiratory Rate 17 18 Blood Pressure 108/59 L Pulse Oximetry 97 97 Oxygen Delivery Method 02/04/22 08:00 02/04/22 08:00 02/04/22 08:30 Temperature Pulse Rate Respiratory Rate Blood Pressure 107/57 L Pulse Oximetry 96 Oxygen Delivery Method Mechanical Ventilation Mechanical Ventilation 02/04/22 08:30 02/04/22 08:45 02/04/22 08:45 Temperature Pulse Rate 96 H 96 H Respiratory Rate 17 18 Blood Pressure 104/56 L Pulse Oximetry 98 97 Oxygen Delivery Method 02/04/22 09:00 02/04/22 09:00 Temperature Pulse Rate 95 H Respiratory Rate 18 Blood Pressure 109/55 L Pulse Oximetry 97 Oxygen Delivery Method Fraction of Inspired Oxygen 35 SaO2/FiO2 Ratio 268 Oxygen Delivery Method Mechanical Ventilation Oxygen Flow Rate 38 Assessment & Plan Assessment & Plan narrative: patient seen with [facility] nurse and provider Dr. Dill chart/labs/imaging reviewed 62y ear old female admitted to ICU with: acute respiratory failure covid pneumonia etoh withdrawal currently afebrile, HR stable remains intubated, sedated continues to fail SAH/SBT this am suggest -cotninue neurochecks/seizure precautions -goal RASS -1 -daily SAH/SBT trials. failed again today, agitatoin/tremulousness -avoid versed/benozos unless seizure activity -increase librium 100mg tid -start seroquel 25mg q12 -wean of drips, check lipid if elevated need to dc propofol -continue pcredex, wean off of propofol/fentantyl w/goal RASS -1 -continue thiamine/folate -clung US unable to obtain good windows -vent support, keep sat above 92%, vent settings are minimal -chest pt/pulm toilet -steroids/redesevir for covid -rocephin/azithro for mssa/e.coli, check final cxs, wbc noted rising -echo ef70%, valves clear -monitor ins/outs -replace lytes prn -gi/dvt ppx -please call eICU if condition changes total ccm time 55 mins Time Spent With Patient Critical Care time: I spent a total of [] minutes of critical care time on this patient's care today; this time is exclusive of procedural time.
[2022-02-04] MEDS: QUETIAPINE 25 MG TABLET PO ×2 (10:05→20:48)
[2022-02-04] MEDS: dexmedeTOMIDine in 0.9 % NaCL 400 MCG/100 ML PLAST..BAG 18.275 MCG IV ×3 (10:05→20:53)
[2022-02-04] MEDS: REMDESIVIR 100 MG in SODIUM CHLORIDE 0.9% 230 ML 250 MG IV (10:05)
--- NOTE | 2022-02-04 10:26 | PC.NURSE ---
0930: AM rounds with Dr Baig--Made aware that SBT failed over rn acute care. Pt became agitated and tremulous when propofol decreased to 20 mcg/kg/min. Propofol decreased to 30 mcg/kg/min this morning, precedex increased in attempt to wean propofol. Dr Baig increased Librium dose daily and added seroquel. Lipid panel drawn. Concern for CHICHO. Repeat EKG obtained. Goal today is to wean sedation and SBT. 1030: Desaturation to 87%. Suctioned with copious amt of brown secretions. intercostal retractions/abd breathing noted. Pt not overbreathing ventilator. FIO2 increased to 30% by RT. Turned.
[2022-02-04 11:11] LABS: Cholesterol 161 mg/dL (140-199); HDL Cholesterol 21 mg/dL (40-60)
[2022-02-04 11:12] LABS: Triglycerides 630 mg/dL (35-150)
[2022-02-04] MEDS: fentaNYL 1,000 MCG in DEXTROSE 5% IN WATER 230 ML 18.144 MCG IV (12:09)
--- NOTE | 2022-02-04 14:03 | DIET.CONS2 ---
Dietary Inpatient Consultation Note Admission Date: 01/30/2022 14:10 Pt requiring rectal tube for significant diarrhea. TF rate slowed to 10mL/h, pt tolerating with little to no diarrhea this afternoon. Pt's TF to advance as tolerated back up to goal. Diet: 01/31/22 04:49 NPO Diet Diet Modifications: NPO Type: Strict 02/02/22 Lunch Tube Feeding Diet Diet Modifications: TF Supplement type: Pivot 1.5 TF mode of delivery: Continuous Starting flow rate mL/hr: 20 Flow rate goal mL/hr: 45 Titration Schedule to reach Goal Rate: 10-20mL q8h as tolerated Max total daily volume in mL: 2,020 Free fluid: 200 Free Water Frequency: Q4H Comment: hospitalist/braid maker to manage IVF vs water flushes for fluid balance Nutrition Type of Feeding Tube NG/OG 02/04/22 05:00 Type of Feeding Tube NG/OG 02/03/22 17:00 Electronically Signed by: Aubrie Mendoza 02/04/22 14:03 Clinical Dietitian [address] [address]
--- NOTE | 2022-02-04 14:23 | PC.WOUNDPHOT ---
L AC from PIV. IV removed. 2x2 gauze pad and paper tape applied.
--- NOTE | 2022-02-04 15:00 | PM.PN.1 ---
Subjective Subjective Interval history: 62-year-old female with anxiety, rheumatoid arthritis, tobacco dependence, hypertension, hyperlipidemia, and alcohol dependence presently hospital day 5 admitted with COVID pneumonia, acute hypoxic respiratory failure requiring intubation/mechanical ventilation, septic shock, PAUL, and acute encephalopathy.? Additionally, she is found to have staph bacteremia and E coli UTI. Pt remains intubated and sedated.? Attempts to transition from propofol/fentanyl to precedex were unsuccessful on 02/02 d/t tachycardia/HTN. She now remains on propofol, fentanyl and precedex. RN today has been able to slowly wean propofol down. Yesterday, weaning efforts were unsuccessful w/pt becoming more tremulous/agitated and not following any directions. Patient has been receiving librium 50 mg TID as well. She is tolerating tube feeds. RN concerned about worsening swelling around her face/mouth/tongue. SO was here today and reportedly shaved off the callouses from the soles of her feet. Exam Vital Signs (past 8 hours): - 02/04/22 07:01 02/04/22 07:15 02/04/22 07:15 Temperature Pulse Rate 90 88 Respiratory Rate 18 18 Blood Pressure 103/56 L Pulse Oximetry 95 95 Oxygen Delivery Method 02/04/22 07:30 02/04/22 07:30 02/04/22 07:45 Temperature Pulse Rate 87 Respiratory Rate 17 Blood Pressure 104/58 L 102/59 L Pulse Oximetry 95 Oxygen Delivery Method 02/04/22 07:45 02/04/22 08:00 02/04/22 08:00 Temperature Pulse Rate 86 96 H Respiratory Rate 18 17 Blood Pressure 105/58 L Pulse Oximetry 95 97 Oxygen Delivery Method 02/04/22 08:15 02/04/22 08:15 02/04/22 08:00 Temperature Pulse Rate 97 H Respiratory Rate 18 Blood Pressure 108/59 L Pulse Oximetry 97 Oxygen Delivery Method Mechanical Ventilation 02/04/22 08:00 02/04/22 08:30 02/04/22 08:30 Temperature Pulse Rate 96 H Respiratory Rate 17 Blood Pressure 107/57 L Pulse Oximetry 96 98 Oxygen Delivery Method Mechanical Ventilation 02/04/22 08:45 02/04/22 08:45 02/04/22 09:00 Temperature Pulse Rate 96 H Respiratory Rate 18 Blood Pressure 104/56 L 109/55 L Pulse Oximetry 97 Oxygen Delivery Method 02/04/22 09:00 02/04/22 10:00 02/04/22 10:00 Temperature 98.5 F Pulse Rate 95 H 97 H Respiratory Rate 18 21 Blood Pressure 144/71 H Pulse Oximetry 97 85 L Oxygen Delivery Method 02/04/22 10:15 02/04/22 10:15 02/04/22 10:30 Temperature Pulse Rate 99 H Respiratory Rate 22 Blood Pressure 149/72 H 116/57 L Pulse Oximetry 95 Oxygen Delivery Method 02/04/22 10:30 02/04/22 10:45 02/04/22 10:45 Temperature Pulse Rate 91 H 86 Respiratory Rate 17 18 Blood Pressure 109/57 L Pulse Oximetry 98 100 Oxygen Delivery Method 02/04/22 11:00 02/04/22 11:00 02/04/22 11:15 Temperature Pulse Rate 85 Respiratory Rate 18 Blood Pressure 105/55 L 107/57 L Pulse Oximetry 100 Oxygen Delivery Method 02/04/22 11:15 02/04/22 11:46 02/04/22 11:48 Temperature Pulse Rate 84 Respiratory Rate 18 Blood Pressure Pulse Oximetry 100 99 Oxygen Delivery Method Mechanical Ventilation Mechanical Ventilation 02/04/22 12:00 02/04/22 12:00 02/04/22 12:15 Temperature Pulse Rate 83 Respiratory Rate 18 Blood Pressure 111/59 L 111/59 L Pulse Oximetry 99 Oxygen Delivery Method 02/04/22 12:15 02/04/22 12:30 02/04/22 12:30 Temperature Pulse Rate 83 83 Respiratory Rate 18 18 Blood Pressure 112/62 Pulse Oximetry 99 99 Oxygen Delivery Method 02/04/22 12:45 02/04/22 12:45 02/04/22 13:00 Temperature Pulse Rate 88 Respiratory Rate 18 Blood Pressure 142/66 H 131/63 Pulse Oximetry 94 Oxygen Delivery Method 02/04/22 13:00 02/04/22 13:14 02/04/22 13:15 Temperature Pulse Rate 85 82 Respiratory Rate 18 18 Blood Pressure 115/58 L Pulse Oximetry 97 99 Oxygen Delivery Method 02/04/22 14:00 02/04/22 14:00 02/04/22 14:15 Temperature Pulse Rate 85 Respiratory Rate 18 Blood Pressure 113/62 145/72 H Pulse Oximetry 99 Oxygen Delivery Method 02/04/22 14:15 02/04/22 14:30 02/04/22 14:30 Temperature Pulse Rate 88 85 Respiratory Rate 18 18 Blood Pressure 133/68 Pulse Oximetry 97 91 Oxygen Delivery Method 02/04/22 14:45 02/04/22 14:45 Temperature Pulse Rate 83 Respiratory Rate 18 Blood Pressure 118/60 Pulse Oximetry 91 Oxygen Delivery Method Fraction of Inspired Oxygen 35 SaO2/FiO2 Ratio 268 Oxygen Delivery Method Mechanical Ventilation Oxygen Flow Rate 38 Narrative Exam Narrative: GEN:? Ill-appearing middle-aged female, intubated and sedated HEENT:NC, Face symmetric, she does have generalized swelling to her face/mouth/neck/tongue CHEST: Respiratory excursions symmetric, diffuse bilateral wheezes, diffusely diminished CV: RRR, no M/R/G ABD: Soft, distended, BT present in all 4 quadrants, no organomegaly or masses appreciated but distention limits exam EXTR: warm, livido reticularis noted bilateral legs, right greater than left, prior 3rd toe amputation on the left side SKIN: warm and dry, no rash NEURO:? Intubated/sedated, nonfocal Objective Labs Result Diagrams: 02/03/22 04:00 02/03/22 04:00 Labs: Laboratory Results - last 24 hr 02/04/22 10:24 Triglycerides 630 H Cholesterol 161 LDL Cholesterol, Calc TNP HDL Cholesterol 21 L PFSH Medical History Alcohol dependence Anemia Anxiety Chronic back pain (~2013) COVID-19 virus infection Degenerative joint disease (DJD) of lumbar spine (~1975) Hyperlipidemia Hypertension Osteoarthritis (~2013) Pneumonia Rheumatoid arthritis (~2009) Scoliosis (~1975) Tobacco dependence Surgical History Anesthesia History of amputation of toe (~2018) History of incision and drainage (03/19/20) Status post left foot surgery (08/23/20) Family History Father Cancer Hypertension Hyperlipidemia Mother Hypertension Brother Testicular cancer Hypertension Brother Diabetes mellitus Hypertension Hyperlipidemia Social History household members: significant other and family Smoking Status: Current every day smoker Tobacco: How many years used: 40 quit status: quit date established (September 08 2020) second hand exposure: No alcohol intake: current substance use type: does not use Assessment & Plan Assessment & Plan narrative: 1. Acute hypoxic respiratory failure Etiology is felt to be COVID pneumonia.? Possible superimposed bacterial pneumonia as well.? Patient remains on remdesivir (D5/10)/dexamethasone (D5/10)/rocephin.? Appreciate management per bottling room worker.? Given her smoking hx and likelihood of underlying COPD, will transition from dex to methylprednisolone. She also does appear to have volume overload w/generalized edema. Will start furosemide 40 mg BID along w/potassium 20 meq BID. Gastrointestinal Technician requests lipid panel be done to assess for hypertriglyceridemia from propofol. Continue on precedex and fentanyl as well. 2.? COVID pneumonia Continues remdesivir. Start methyprednisolone as noted.? Neb treatments being given regularly as well.? Given her underlying smoking hx, she likely has a component of undiagnosed COPD.? She has had 2 sputum samples positive for light growth of MSSA, from 01/31 and 02/02. Given her ongoing respiratory failure/intubated status, will add doxycycline. 2. Alcohol dependence complicated by withdrawal Pt is now off versed as noted above.? Remains on librium and seroquel. 3. Staph aureus bacteremia MSSA in 1 blood culture from 01/30, making it likely this was a contaminant. f/u cultures are negative to date. 4. E coli UTI Pansensitive e coli.? Has received 5 days of abx. 5. Septic shock Remains on Rocephin.? Appreciate bottling room worker management.? Etiology is likely multifactorial from bacteremia, UTI, COVID pneumonia, possible superimposed bacterial pneumonia.? Worsening leukocytosis yesterday. Last CXR 02/02. Will repeat CXR today. Blood cxs done 02/02. Urine cx done on admit +e coli (now fully treated). 6. Acute metabolic encephalopathy Likely multifactorial from shock and alcohol withdrawal.? Plan to wean sedation as noted. 7. PAUL Resolved. Creatinine down to 0.93. 8. Rheumatoid arthritis Holding leflunomide.? 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 Per report this is chronic. 9. Hypertension On metoprolol and HCTZ on an outpatient basis.? BPs generally have been normotensive here. 10. Anxiety On venlafaxine 11. Tobacco dependence Nicotine patch is in place 12. Hypokalemia Improved on yesterday's labs at 3.9. Will repeat today. Tubes/lines: Right IJ - placed 01/31 PIV LFA- placed 02/04 Mari cath - placed 01/31 ETT- placed 01/31 FEN: Pivot 1.5 at 10 cc/hr Code status Full Prophylaxis On heparin and famotidine Disposition ICU Time Spent With Patient Critical Care time: I spent a total of [] minutes of critical care time on this patient's care today; this time is exclusive of procedural time.
--- NOTE | 2022-02-04 15:24 | DI.RAD.S_ITS ---
PROCEDURE: XR CHEST 1V INDICATIONS: Resp failure TECHNIQUE: One view of the chest was acquired. COMPARISON: [facility], CR, XR CHEST 1V, 02/02/2022, 10:56. FINDINGS: Surgical changes and devices: Right IJ line has been retracted and projects to the right brachiocephalic vein. ET tube tip is approximately 2.7 cm above the nona. NG tube tip projects to the pylorus of the stomach. Lungs and pleura: Suspect pulmonary edema. Bibasilar atelectasis and moderate right pleural effusion. Mediastinum: Mediastinal contours appear normal. Cardiomegaly. Bones and chest wall: No suspicious bony lesions. Overlying soft tissues appear unremarkable. IMPRESSION: 1. Right IJ line is retracted to the level of the right brachiocephalic vein. 2. Findings may represent congestive heart failure. Of note, there is a moderate right pleural effusion and bibasilar atelectasis and probable pulmonary edema. Dictated by: Ken Cuellar M.D. on 02/04/2022 at 17:04 Approved by: Ken Cuellar M.D. on 02/04/2022 at 17:06
[2022-02-04 15:57] LABS: Hematocrit 25.7 % (36-46); Hemoglobin 8.6 g/dL (12.0-16.0); Mean Corpuscular HGB Conc 33.5 % (30-36); Mean Corpuscular Volume 95.5 fL (80-100); Platelet Count 340 X10^3/uL (150-400); Red Cell Distribution Width 14.6 % (11.6-14.8); White Blood Cell Count 20.7 X10^3/uL (4.5-11.0)
[2022-02-04 16:00] LABS: Add Manual Diff / Slide Review YES
[2022-02-04 16:03] LABS: Alanine Aminotransferase 19 IU/L (<35); Albumin 2.4 g/dL (3.5-5.0); Albumin Globulin Ratio 0.8 (1.0-2.8); Alkaline Phosphatase 105 U/L (38-126); Aspartate Aminotransferase 25 IU/L (14-36); Bilirubin Total 0.2 mg/dL (0.2-1.3); Blood Urea Nitrogen 33 mg/dL (7-17); Carbon Dioxide 25 mmol/L (22-32); Chloride 104 mmol/L (98-107); Estimated Glomerular Filt Rate > 60 mL/min (>60); Globulin 3.2 g/dL (1.7-4.1); Glucose 135 mg/dL (80-110); HEMOLYSIS < 15 (0-50); Potassium 4.2 mmol/L (3.4-5.1); Sodium 135 mmol/L (137-145); Total Protein 5.6 g/dL (6.3-8.2)
[2022-02-04 16:14] LABS: Neutrophils Absolute Manual 18630 /uL (3000-5900); Total Cells Counted 100
[2022-02-04 16:15] LABS: RBC Morphology Normal Morphology
[2022-02-04] MEDS: chlordiazePOXIDE 25 MG CAPSULE 100 MG PO ×2 (16:30→20:48)
[2022-02-04] MEDS: DOXYCYCLINE 100 MG in SODIUM CHLORIDE 0.9% 100 ML IV (16:31)
[2022-02-04] MEDS: POTASSIUM CHLORIDE 20 MEQ/15 ML UDC TUBE (16:35)
[2022-02-04] MEDS: FUROSEMIDE 40 MG/4 ML VIAL IV (16:53)
--- NOTE | 2022-02-04 18:55 | PC.NURSE ---
No significant changes in assessment over dayshift. Propofol decreased to 10mcg/kg/min. +gag + cough. Minimally rousable to firm stimulation. 1100ml total UO. FIO2 increased to 30% for sats 87-88% and tolerating well. Currently 93%. NSR 90's. Updated pt's brother Abhijeet Hollins.
--- NOTE | 2022-02-04 20:14 | PM.ICURNDS ---
- Date Patient Seen: 02/04/22 Time Patient Seen: 20:14 :: This patient was seen via real time interactive two-way audiovisual telecommunication. Note: Currently sedated w/ propofol 10 mcg, precedex 1, and fentanyl. On FiO2 30%. Will continue diuresis to seek net negative fluid balance. D/w RN.
[2022-02-05] VITALS (105 sets, daily range): BP systolic 94–184; BP diastolic 51–83; PULSE 76–102; RESP 16–24; TEMP 36.8–37.5; O2SAT 86–94
[2022-02-05] MEDS: FUROSEMIDE 40 MG/4 ML VIAL IV ×2 (00:15→11:04)
--- NOTE | 2022-02-05 01:00 | PC.NURSE ---
0000- Patient repositioned and turned. Restraints released and skin checked. Lips and tongue are swollen. Mouth care done. Lip balm applied. Patsy care completed and Rectal tube is in place and no redness or ulceration noted at the insertion site. Lungs remain dim and fine crackles appreciated. Saturations between 90-94% on 30% FI02. Afebrile. SCD's are on.
[2022-02-05] MEDS: dexmedeTOMIDine in 0.9 % NaCL 400 MCG/100 ML PLAST..BAG 18.275 MCG IV ×2 (01:31→06:07)
[2022-02-05] MEDS: ALBUTEROL 2.5 MG/3 ML NEB (ADULT) INH (01:38)
[2022-02-05] MEDS: fentaNYL 1,000 MCG in DEXTROSE 5% IN WATER 230 ML 18.144 MCG IV ×2 (01:55→13:42)
[2022-02-05] MEDS: DOXYCYCLINE 100 MG in SODIUM CHLORIDE 0.9% 100 ML IV ×2 (03:04→15:43)
[2022-02-05] MEDS: propofoL 1,000 MG/100 ML VIAL 4.355 MG IV (03:20)
[2022-02-05 04:31] LABS: Add Manual Diff / Slide Review NO; Basophils Absolute Auto 100 /uL (0-100); Basophils Percent Auto 0.5 % (0-2); Eosinophils Absolute Auto 0 /uL (0-450); Eosinophils Percent Auto 0.1 % (2-4); Hematocrit 27.6 % (36-46); Hemoglobin 9.1 g/dL (12.0-16.0); Lymphocytes Absolute Auto 1600 /uL (1100-4500); Lymphocytes Percent Auto 6.7 % (25-40); Mean Corpuscular Hemoglobin 31.5 PG (26-34); Mean Corpuscular Volume 95.5 fL (80-100); Monocytes Absolute Auto 1500 /uL (0-900); Monocytes Percent Auto 6.4 % (3-14); Neutrophils Absolute Auto 20400 /uL (1500-7000); Neutrophils Percent Auto 86.3 % (50-75); Platelet Count 379 X10^3/uL (150-400); Red Blood Cell Count 2.89 X10^6/uL (4.0-5.2); White Blood Cell Count 23.6 X10^3/uL (4.5-11.0)
[2022-02-05 04:40] LABS: Alanine Aminotransferase 25 IU/L (<35); Albumin 2.8 g/dL (3.5-5.0); Albumin Globulin Ratio 0.8 (1.0-2.8); Alkaline Phosphatase 115 U/L (38-126); Aspartate Aminotransferase 28 IU/L (14-36); BUN Creatinine Ratio 46.9 (6-22); Bilirubin Total 0.4 mg/dL (0.2-1.3); Blood Urea Nitrogen 38 mg/dL (7-17); Calcium 8.1 mg/dL (8.4-10.2); Carbon Dioxide 27 mmol/L (22-32); Chloride 101 mmol/L (98-107); Estimated Glomerular Filt Rate > 60 mL/min (>60); Globulin 3.4 g/dL (1.7-4.1); Glucose 141 mg/dL (80-110); HEMOLYSIS 15 (0-50); Potassium 3.4 mmol/L (3.4-5.1); Sodium 136 mmol/L (137-145); Total Protein 6.2 g/dL (6.3-8.2); Triglycerides 464 mg/dL (35-150)
[2022-02-05] MEDS: CHLORHEXIDINE GLUCONATE 15 ML CUP PO ×4 (05:05→21:19)
[2022-02-05] MEDS: HEPARIN 5,000 UNIT/ML VIAL 5000 UNIT SUBCUT ×3 (05:05→21:18)
[2022-02-05] MEDS: cefTRIAXone 2,000 MG in SODIUM CHLORIDE 0.9% 100 ML 200 MG IV (08:02)
[2022-02-05] MEDS: POTASSIUM CHLORIDE 20 MEQ/15 ML UDC TUBE ×2 (08:03→16:54)
[2022-02-05] MEDS: VENLAFAXINE 37.5 MG TABLET PO ×2 (09:03→21:19)
[2022-02-05] MEDS: MULTIVITAMIN 1 TABLET 1 TAB PO (09:03)
[2022-02-05] MEDS: FAMOTIDINE 20 MG/2 ML VIAL IV ×2 (09:03→21:18)
[2022-02-05] MEDS: FOLIC ACID 1 MG TABLET PO (09:03)
[2022-02-05] MEDS: QUETIAPINE 25 MG TABLET PO ×2 (09:03→21:19)
[2022-02-05] MEDS: NICOTINE 14 PATCH 14 MG TOP (09:04)
[2022-02-05] MEDS: chlordiazePOXIDE 25 MG CAPSULE 100 MG PO ×3 (09:25→21:19)
--- NOTE | 2022-02-05 10:30 | P.TELICUPN_ITS ---
Subjective Subjective IF CAMERA ACTIVATED, patient seen via real-time interactive audiovisual communication: Camera activated Consent obtained for tele-floor grinder care: Yes Patient Location: ICU Provider location (State): [place] Other participants/roles: RN, RT Current Medications Current Medications Medications: Home Medications leflunomide 20 mg tablet 20 mg PO DAILY #90 tabs 12/04/20 [Rx Confirmed 01/30/22] colchicine 0.6 mg capsule See Rx Instructions .Route .COMPLEX #180 caps 12/31/20 [Rx Confirmed 01/30/22] atorvastatin 20 mg tablet 20 mg PO DAILY #90 tabs 08/20/21 [Rx Confirmed 01/30/22] hydrochlorothiazide 25 mg tablet 25 mg PO DAILY #90 tabs 08/20/21 [Rx Confirmed 01/30/22] metoprolol tartrate 50 mg tablet 50 mg PO BID #180 tabs 08/20/21 [Rx Confirmed 01/30/22] nortriptyline 50 mg capsule 50 mg PO DAILY #90 caps 08/20/21 [Rx Confirmed 01/30/22] pregabalin 150 mg capsule 150 mg PO BID #180 caps 08/20/21 [Rx Confirmed 01/30/22] venlafaxine 37.5 mg capsule,extended release 24 hr 37.5 mg PO 2XD 01/30/22 [History Confirmed 01/30/22] Visit Medications (administered) Generic Name Dose Route Start Last Admin Trade Name Freq PRN Reason Stop Dose Admin Albuterol 2.5 mg 01/30/22 16:37 02/05/22 01:38 Albuterol 2.5 Mg/3 Ml Neb (Adult) INH 2.5 mg [id number] PRN Administration Shortness Of Breath Albuterol/Ipratropium 3 ml 01/30/22 19:00 02/05/22 10:29 Albuterol/Ipratropium 3 Ml Ampul INH Not Given [id number] MELVIN Budesonide 0.5 mg 02/03/22 20:00 02/04/22 20:58 Budesonide 0.5 Mg/2 Ml Neb INH 0.5 mg RTBID MELVIN Administration Chlordiazepoxide HCl 100 mg 02/04/22 15:00 02/05/22 09:25 Chlordiazepoxide 25 Mg Capsule PO 100 mg TID MELVIN Administration Chlorhexidine Gluconate 15 ml 02/02/22 16:00 02/05/22 05:05 Chlorhexidine Gluconate 15 Ml Cup PO 15 ml Q6H MELVIN Administration Famotidine 20 mg 02/01/22 10:45 02/05/22 09:03 Famotidine 20 Mg/2 Ml Vial IV 20 mg BID MELVIN Administration Folic Acid 1 mg 01/31/22 09:00 02/05/22 09:03 Folic Acid 1 Mg Tablet PO 1 mg DAILY MELVIN Administration Furosemide 40 mg 02/04/22 16:45 02/05/22 00:15 Furosemide 40 Mg/4 Ml Vial IV 40 mg Q12HR MELVIN Administration Heparin Sodium (Porcine) 5,000 unit 01/31/22 06:00 02/05/22 05:05 Heparin 5,000 Unit/Ml Vial SUBCUT 5,000 unit Q8HR MELVIN Administration Heparin Sodium (Porcine) 50 unit 02/02/22 00:45 02/05/22 09:04 Heparin Flush (Cl/Picc/Mid-Line) 50 Unit/5 Ml Syringe IV 50 unit BID MELVIN Administration Propofol 1,000 mg in 100 mls @ 2.177 mls/hr 01/31/22 03:45 02/05/22 08:17 Propofol IV 20 mcg/kg/min TITRATE MELVIN 8.709 mls/hr Titration Protocol 5 MCG/KG/MIN Fentanyl 1,000 mcg/ Dextrose 250 mls @ 12.701 mls/hr 01/31/22 04:00 02/05/22 01:55 IV 1 mcg/kg/hr TITRATE MELVIN 18.144 mls/hr Administration Protocol 0.7 MCG/KG/HR NOREPINEPHRINE BITARTRATE/D5W 4 mg in 250 mls @ 30 mls/hr 01/31/22 07:09 02/01/22 02:48 Levophed IV 0 mcg/min TITRATE MELVIN 0 mls/hr Titration Protocol 8 MCG/MIN Remdesivir 100 mg/ Sodium 250 mls @ 250 mls/hr 02/01/22 11:00 02/04/22 11:25 Chloride IV 02/09/22 09:59 Infused DAILY MELVIN Infusion dexmedeTOMIDine in 0.9 % NaCL 400 mcg in 100 mls @ 3.655 mls/hr 02/02/22 13:00 02/05/22 06:07 Precedex IV 1 mcg/kg/hr TITRATE MELVIN 18.275 mls/hr Administration Protocol 0.2 MCG/KG/HR Ceftriaxone Sodium 2,000 mg/ 100 mls @ 200 mls/hr 02/03/22 08:00 02/05/22 08:02 Sodium Chloride IV 200 mls/hr Q24H MELVIN Administration Doxycycline Hyclate 100 mg/ 100 mls @ 100 mls/hr 02/04/22 15:30 02/05/22 06:07 Sodium Chloride IV Infused Q12H MELVIN Infusion Loperamide HCl 4 mg 02/03/22 03:17 02/03/22 03:51 Loperamide 2 Mg Capsule PO 4 mg PRN PRN Administration Diarrhea Methylprednisolone 40 mg 02/04/22 14:00 02/05/22 05:05 Methylprednisolone 40 Mg/Ml Vial IV 40 mg Q8HR MELVIN Administration Multivitamins 1 tab 01/31/22 09:00 02/05/22 09:03 Multivitamin 1 Tablet PO 1 tab DAILY MELVIN Administration Nicotine 14 mg 01/31/22 09:00 02/05/22 09:04 Nicotine 14 Patch TOP 14 mg DAILY MELVIN Administration Potassium Chloride 20 meq 02/04/22 17:00 02/05/22 08:03 Potassium Chloride 20 Meq/15 Ml Udc TUBE 20 meq BIDWM MELVIN Administration Quetiapine Fumarate 25 mg 02/04/22 10:00 02/05/22 09:03 Quetiapine 25 Mg Tablet PO 25 mg BID MELVIN Administration Venlafaxine HCl 37.5 mg 02/02/22 21:00 02/05/22 09:03 Venlafaxine 37.5 Mg Tablet PO 37.5 mg BID MELVIN Administration Objective Ventilator Parameters: Ventilator Settings Pressure Control 15 FiO2 35 RT Vent Frequency 18 Ventilator Tidal Volume 390 Exhaled Vt/kg IBW 6 Positive End Expiratory 5 Pressure Ventilator Pressure Support 2 Inspiratory Phase Time 0.70 I:E Ratio 1:3.2 Patient Position HOB >= 30 degrees Labs Result Diagrams: 02/05/22 04:00 02/05/22 04:00 Labs: Laboratory Results - last 24 hr 02/04/22 02/04/22 02/04/22 10:24 15:43 15:43 WBC 20.7 H RBC 2.70 L Hgb 8.6 L Hct 25.7 L MCV 95.5 MCH 32.0 MCHC 33.5 RDW 14.6 Plt Count 340 Neut % (Auto) Not Reportable Lymph % (Auto) Not Reportable Emanuel % (Auto) Not Reportable Eos % (Auto) Not Reportable Baso % (Auto) Not Reportable Neut # (Auto) Lymph # (Auto) Not Reportable Emanuel # (Auto) Not Reportable Eos # (Auto) Baso # (Auto) Not Reportable Total Counted 100 Seg Neutrophils % 84.0 H Band Neutrophils % 6.0 Lymphocytes % (Manual) 4.0 L Monocytes % (Manual) 4.0 Metamyelocytes % 2.0 H Neutrophils # (Manual) 52703 H RBC Morphology Normal morphology Sodium 135 L Potassium 4.2 Chloride 104 Carbon Dioxide 25 BUN 33 H Creatinine 0.75 Estimated GFR > 60 BUN/Creatinine Ratio 44.0 H Glucose 135 H Calcium 8.0 L Total Bilirubin 0.2 AST 25 ALT 19 Alkaline Phosphatase 105 Total Protein 5.6 L Albumin 2.4 L Globulin 3.2 Albumin/Globulin Ratio 0.8 L Triglycerides 630 H Cholesterol 161 LDL Cholesterol, Calc TNP HDL Cholesterol 21 L 02/05/22 02/05/22 04:00 04:00 WBC 23.6 H RBC 2.89 L Hgb 9.1 L Hct 27.6 L MCV 95.5 MCH 31.5 MCHC 33.0 RDW 15.0 H Plt Count 379 Neut % (Auto) 86.3 H Lymph % (Auto) 6.7 L Emanuel % (Auto) 6.4 Eos % (Auto) 0.1 L Baso % (Auto) 0.5 Neut # (Auto) 62818 H Lymph # (Auto) 1600 Emanuel # (Auto) 1500 H Eos # (Auto) 0 Baso # (Auto) 100 Total Counted Seg Neutrophils % Band Neutrophils % Lymphocytes % (Manual) Monocytes % (Manual) Metamyelocytes % Neutrophils # (Manual) RBC Morphology Sodium 136 L Potassium 3.4 Chloride 101 Carbon Dioxide 27 BUN 38 H Creatinine 0.81 Estimated GFR > 60 BUN/Creatinine Ratio 46.9 H Glucose 141 H Calcium 8.1 L Total Bilirubin 0.4 AST 28 ALT 25 Alkaline Phosphatase 115 Total Protein 6.2 L Albumin 2.8 L Globulin 3.4 Albumin/Globulin Ratio 0.8 L Triglycerides 464 H Cholesterol LDL Cholesterol, Calc HDL Cholesterol Exam Vital Signs (past 8 hours): - 02/05/22 04:00 02/05/22 04:00 02/05/22 02:45 Pulse Rate Respiratory Rate Blood Pressure 95/51 L Pulse Oximetry 93 Oxygen Delivery Method Mechanical Ventilation Mechanical Ventilation Oxygen Flow Rate 30 02/05/22 02:45 02/05/22 03:00 02/05/22 03:00 Pulse Rate 93 H 92 H Respiratory Rate 18 18 Blood Pressure 101/55 L Pulse Oximetry 92 92 Oxygen Delivery Method Oxygen Flow Rate 02/05/22 03:15 02/05/22 03:15 02/05/22 03:30 Pulse Rate 91 H Respiratory Rate 18 Blood Pressure 100/57 L 106/56 L Pulse Oximetry 92 Oxygen Delivery Method Oxygen Flow Rate 02/05/22 03:30 02/05/22 03:45 02/05/22 03:45 Pulse Rate 88 88 Respiratory Rate 18 18 Blood Pressure 141/81 H Pulse Oximetry 92 89 L Oxygen Delivery Method Oxygen Flow Rate 02/05/22 04:00 02/05/22 04:00 02/05/22 04:15 Pulse Rate 90 Respiratory Rate 19 Blood Pressure 117/61 98/53 L Pulse Oximetry 91 Oxygen Delivery Method Oxygen Flow Rate 02/05/22 04:15 02/05/22 04:30 02/05/22 04:30 Pulse Rate 86 85 Respiratory Rate 18 18 Blood Pressure 94/55 L Pulse Oximetry 92 92 Oxygen Delivery Method Oxygen Flow Rate 02/05/22 04:45 02/05/22 04:45 02/05/22 05:00 Pulse Rate 86 Respiratory Rate 18 Blood Pressure 99/57 L 97/57 L Pulse Oximetry 93 Oxygen Delivery Method Oxygen Flow Rate 02/05/22 05:00 02/05/22 05:15 02/05/22 05:15 Pulse Rate 83 83 Respiratory Rate 18 18 Blood Pressure 96/55 L Pulse Oximetry 93 93 Oxygen Delivery Method Oxygen Flow Rate 02/05/22 05:30 02/05/22 05:30 02/05/22 05:45 Pulse Rate 81 Respiratory Rate 18 Blood Pressure 101/57 L 100/60 Pulse Oximetry 93 Oxygen Delivery Method Oxygen Flow Rate 02/05/22 05:45 02/05/22 06:00 02/05/22 06:00 Pulse Rate 82 81 Respiratory Rate 18 18 Blood Pressure 102/61 Pulse Oximetry 92 92 Oxygen Delivery Method Oxygen Flow Rate 02/05/22 06:15 02/05/22 06:15 02/05/22 06:30 Pulse Rate 82 Respiratory Rate 18 Blood Pressure 97/57 L 102/60 Pulse Oximetry 92 Oxygen Delivery Method Oxygen Flow Rate 02/05/22 06:30 02/05/22 06:45 02/05/22 06:45 Pulse Rate 82 80 Respiratory Rate 18 18 Blood Pressure 106/62 Pulse Oximetry 92 92 Oxygen Delivery Method Oxygen Flow Rate 02/05/22 07:00 02/05/22 07:00 02/05/22 07:15 Pulse Rate 80 80 Respiratory Rate 18 18 Blood Pressure 109/64 Pulse Oximetry 92 91 Oxygen Delivery Method Oxygen Flow Rate 02/05/22 07:15 02/05/22 07:30 02/05/22 07:30 Pulse Rate 80 Respiratory Rate 18 Blood Pressure 107/60 107/62 Pulse Oximetry 90 L Oxygen Delivery Method Oxygen Flow Rate 02/05/22 07:45 02/05/22 07:45 02/05/22 08:00 Pulse Rate 80 Respiratory Rate 18 Blood Pressure 110/63 160/79 H Pulse Oximetry 90 L Oxygen Delivery Method Oxygen Flow Rate 02/05/22 08:00 02/05/22 08:15 02/05/22 08:15 Pulse Rate 92 H 81 Respiratory Rate 23 20 Blood Pressure 97/56 L Pulse Oximetry 90 L 90 L Oxygen Delivery Method Oxygen Flow Rate 02/05/22 08:30 02/05/22 08:30 02/05/22 08:45 Pulse Rate 81 Respiratory Rate 18 Blood Pressure 107/58 L 107/59 L Pulse Oximetry 92 Oxygen Delivery Method Oxygen Flow Rate 02/05/22 08:45 02/05/22 09:00 02/05/22 09:00 Pulse Rate 80 79 Respiratory Rate 18 18 Blood Pressure 102/58 L Pulse Oximetry 93 93 Oxygen Delivery Method Oxygen Flow Rate 02/05/22 09:15 02/05/22 09:15 02/05/22 09:30 Pulse Rate 78 Respiratory Rate 18 Blood Pressure 99/58 L 103/59 L Pulse Oximetry 93 Oxygen Delivery Method Oxygen Flow Rate 02/05/22 09:30 Pulse Rate 78 Respiratory Rate 18 Blood Pressure Pulse Oximetry 93 Oxygen Delivery Method Oxygen Flow Rate Fraction of Inspired Oxygen 35 SaO2/FiO2 Ratio 268 Oxygen Delivery Method Mechanical Ventilation Oxygen Flow Rate 30 Narrative Exam Narrative: No tele-eval of patient in room because protocol per RN given patient has COVID Assessment & Plan Assessment and plan (1) Acute respiratory failure due to COVID-19: Status: Acute (2) Acute respiratory failure with hypoxia and hypercapnia: Status: Acute (3) Alcohol dependence: Qualifiers: Substance use status: uncomplicated Qualified Code(s): F10.20 - Alcohol dependence, uncomplicated Status: Acute Assessment & Plan narrative: # Acute respiratory failure on vent # COVID pneumonia # Etoh withdrawal - Stat CT head given persistent AMS. - Would continue Fent, increase Precedex to max if needed - DC propofol given elevated TGs. Start Ketamine drip if available vs benzos. - RASS goal 0 to -1. Cheema SAT - Pressor off. MAP goal >65 - Continue vent, no setting change at this time. Continue HOB > 30 degrees, CHG BID while intubated, daily SBT - Continue Librium, Seroquel. Monitor QTs. - Continue abx, repeat respiratory cultures are pending for sensitivities. - Continue Steroids/Remdesivir for COVID - Continue Lasix IV BID. Goal 1-5L net negative/day. Check lytes BID while diuresing, replete as needed - Continue GI, VTE prophylaxis - Recontact Tele ICU with condition changes Time Spent With Patient Critical Care time: I spent a total of [] minutes of critical care time on this patient's care t naveen; this time is exclusive of procedural time.
[2022-02-05] MEDS: ALBUTEROL/IPRATROPIUM 3 ML AMPUL INH ×3 (10:32→17:57)
[2022-02-05] MEDS: BUDESONIDE 0.5 MG/2 ML NEB INH ×2 (10:32→17:58)
--- NOTE | 2022-02-05 11:02 | DIET.CONS2 ---
Dietary Inpatient Consultation Note Admission Date: 01/30/2022 14:10 RD f/u for pt day 5 ventilated receiving trickle feeds and 20mcg/kg/min. Pt remains on trickle feeds as increased rate caused increased loose stools. Pt currently getting 360kcals from feed and 221 kcals from propofol providing 36% EER for kcals and 22% for protein. Recc initiation of Prosource TF protein modular along with trickle feeds to better meet patients nutritional needs. Recc one modular q4h to provide an additional 66g PRO as tolerated while on trickle feeds. Addition of modular will increase total protein intake to 88% of EER. Diet: 01/31/22 04:49 NPO Diet Diet Modifications: NPO Type: Strict 02/02/22 Lunch Tube Feeding Diet Diet Modifications: TF Supplement type: Pivot 1.5 TF mode of delivery: Continuous Starting flow rate mL/hr: 20 Flow rate goal mL/hr: 45 Titration Schedule to reach Goal Rate: 10-20mL q8h as tolerated Max total daily volume in mL: 2,020 Free fluid: 200 Free Water Frequency: Q4H Comment: hospitalist/assistant food service director to manage IVF vs water flushes for fluid balance Nutrition Type of Feeding Tube NG/OG 02/05/22 05:00 Type of Feeding Tube NG/OG 02/04/22 17:00 Type of Feeding Tube NG/OG 02/04/22 05:00 Type of Feeding Tube NG/OG 02/03/22 17:00 Electronically Signed by: Aubrie Mendoza 02/05/22 11:02 Clinical Dietitian [address] [id number]
[2022-02-05] MEDS: dexmedeTOMIDine in 0.9 % NaCL 400 MCG/100 ML PLAST..BAG 27.413 MCG IV ×4 (11:04→21:20)
[2022-02-05] MEDS: REMDESIVIR 100 MG in SODIUM CHLORIDE 0.9% 230 ML 250 MG IV (11:04)
--- NOTE | 2022-02-05 13:20 | CM.DPC ---
DCP Cont: Per MD, pt continues to be treated with ETOH withdrawal, COVID, MRSA, UTI, etc and have been attempting to wean her sedation for the past couple days without success as pt becomes agitated and unable to follow commands but today pt's sedation has been able to be reduced some. Pt remains intubated and sedated. Sig Other has remained bedside diligently the past few days and other family members may fly in to be bedside with pt in the next day or two. Discharge needs still unclear at this time. Plan: SW to follow closely for ongoing attempts to reduce sedation and eventual attempts at extubation towards determining d/c planning needs and likely PT/OT eval when more medically appropriate. GLENN Terry
[2022-02-05] MEDS: MIDAZOLAM 50 MG in DEXTROSE 5% IN WATER 240 ML 25 MG IV (14:33)
--- NOTE | 2022-02-05 18:04 | P.PN_ITS ---
Subjective Subjective Date Patient Seen: 02/05/22 Interval history: 62-year-old female with anxiety, rheumatoid arthritis, tobacco dependence, hypertension, hyperlipidemia, and alcohol dependence presently hospital day 5 admitted with COVID pneumonia, acute hypoxic respiratory failure requiring intubation/mechanical ventilation, septic shock, PAUL, and acute encephalopathy.? Additionally, she is found to have MRSA in sputum and E coli. Patient remains on vent requiring significant amounts of sedatives due to encephalopathy/ETOH withdrawal. Propofol was tapered off due to significant hypertriglyceridemia and patient started on Versed drip. Also remains on Precedex, fentanyl and Librium via tube. On 35% FiO2. Getting diuresed with IV Lasix. Exam Vital Signs (past 8 hours): - 02/05/22 12:00 02/05/22 12:00 02/05/22 10:15 Pulse Rate Respiratory Rate Blood Pressure 98/58 L Pulse Oximetry 91 Oxygen Delivery Method Mechanical Ventilation Mechanical Ventilation Oxygen Flow Rate 30 02/05/22 10:15 02/05/22 10:30 02/05/22 10:30 Pulse Rate 77 76 Respiratory Rate 18 18 Blood Pressure 107/61 Pulse Oximetry 91 91 Oxygen Delivery Method Oxygen Flow Rate 02/05/22 10:45 02/05/22 10:45 02/05/22 11:00 Pulse Rate 81 Respiratory Rate 18 Blood Pressure 109/61 106/60 Pulse Oximetry 92 Oxygen Delivery Method Oxygen Flow Rate 02/05/22 11:00 02/05/22 11:15 02/05/22 11:15 Pulse Rate 88 92 H Respiratory Rate 18 17 Blood Pressure 125/62 Pulse Oximetry 92 91 Oxygen Delivery Method Oxygen Flow Rate 02/05/22 11:30 02/05/22 11:30 02/05/22 11:45 Pulse Rate 88 Respiratory Rate 18 Blood Pressure 123/66 121/67 Pulse Oximetry 91 Oxygen Delivery Method Oxygen Flow Rate 02/05/22 11:45 02/05/22 12:00 02/05/22 12:00 Pulse Rate 86 86 Respiratory Rate 18 18 Blood Pressure 119/66 Pulse Oximetry 92 91 Oxygen Delivery Method Oxygen Flow Rate 02/05/22 12:15 02/05/22 12:15 02/05/22 12:30 Pulse Rate 84 Respiratory Rate 18 Blood Pressure 117/66 114/64 Pulse Oximetry 91 Oxygen Delivery Method Oxygen Flow Rate 02/05/22 12:30 02/05/22 12:45 02/05/22 12:45 Pulse Rate 84 83 Respiratory Rate 18 18 Blood Pressure 114/64 Pulse Oximetry 91 91 Oxygen Delivery Method Oxygen Flow Rate 02/05/22 13:00 02/05/22 13:00 02/05/22 13:15 Pulse Rate 83 Respiratory Rate 18 Blood Pressure 115/66 114/64 Pulse Oximetry 91 Oxygen Delivery Method Oxygen Flow Rate 02/05/22 13:15 02/05/22 13:30 02/05/22 13:30 Pulse Rate 82 82 Respiratory Rate 18 18 Blood Pressure 114/65 Pulse Oximetry 91 91 Oxygen Delivery Method Oxygen Flow Rate 02/05/22 13:45 02/05/22 13:45 02/05/22 14:00 Pulse Rate 81 Respiratory Rate 18 Blood Pressure 117/64 109/58 L Pulse Oximetry 91 Oxygen Delivery Method Oxygen Flow Rate 02/05/22 14:00 02/05/22 14:15 02/05/22 14:15 Pulse Rate 81 80 Respiratory Rate 18 18 Blood Pressure 104/56 L Pulse Oximetry 91 91 Oxygen Delivery Method Oxygen Flow Rate 02/05/22 14:30 02/05/22 14:30 02/05/22 14:45 Pulse Rate 79 79 Respiratory Rate 18 18 Blood Pressure 110/57 L Pulse Oximetry 92 91 Oxygen Delivery Method Oxygen Flow Rate 02/05/22 14:45 02/05/22 16:00 02/05/22 16:00 Pulse Rate Respiratory Rate Blood Pressure 109/59 L Pulse Oximetry 88 L Oxygen Delivery Method Mechanical Ventilation Mechanical Ventilation Oxygen Flow Rate 30 Fraction of Inspired Oxygen 35 SaO2/FiO2 Ratio 268 Oxygen Delivery Method Mechanical Ventilation Oxygen Flow Rate 30 Narrative Exam Narrative: General: Patient sedated and on vent HEENT: Periorbital edema Lungs: Clear Heart: Regular, tachycardic Abdomen: Soft Extremities: No distal edema Objective Labs Result Diagrams: 02/05/22 04:00 02/05/22 04:00 Labs: Laboratory Results - last 24 hr 02/05/22 02/05/22 04:00 04:00 WBC 23.6 H RBC 2.89 L Hgb 9.1 L Hct 27.6 L MCV 95.5 MCH 31.5 MCHC 33.0 RDW 15.0 H Plt Count 379 Neut % (Auto) 86.3 H Lymph % (Auto) 6.7 L [place] % (Auto) 6.4 Eos % (Auto) 0.1 L Baso % (Auto) 0.5 Neut # (Auto) 20165 H Lymph # (Auto) 1600 [place] # (Auto) 1500 H Eos # (Auto) 0 Baso # (Auto) 100 Sodium 136 L Potassium 3.4 Chloride 101 Carbon Dioxide 27 BUN 38 H Creatinine 0.81 Estimated GFR > 60 BUN/Creatinine Ratio 46.9 H Glucose 141 H Calcium 8.1 L Total Bilirubin 0.4 AST 28 ALT 25 Alkaline Phosphatase 115 Total Protein 6.2 L Albumin 2.8 L Globulin 3.4 Albumin/Globulin Ratio 0.8 L Triglycerides 464 H [facility] Medical History Alcohol dependence Anemia Anxiety Chronic back pain (~2013) COVID-19 virus infection Degenerative joint disease (DJD) of lumbar spine (~1975) Hyperlipidemia Hypertension Osteoarthritis (~2013) Pneumonia Rheumatoid arthritis (~2009) Scoliosis (~1975) Tobacco dependence Surgical History Anesthesia History of amputation of toe (~2018) History of incision and drainage (03/19/20) Status post left foot surgery (08/23/20) Family History Father Cancer Hypertension Hyperlipidemia Mother Hypertension Brother Testicular cancer Hypertension Brother Diabetes mellitus Hypertension Hyperlipidemia Social History household members: significant other and family Smoking Status: Current every day smoker Tobacco: How many years used: 40 quit status: quit date established (September 08 2020) second hand exposure: No alcohol intake: current substance use type: does not use Assessment & Plan Assessment & Plan narrative: 1. Acute hypoxic respiratory failure, on mechanical ventilation Etiology is felt to be COVID pneumonia.? Possible superimposed bacterial pneumonia as well.? Continue vent management per tele ICU recommendations. Propofol stopped 02/05, started back on Versed, continued fentanyl, Precedex, and chlordiazepoxide for sedation Lasix 40 mg IV b.i.d. to maintain 1-1.5 L daily net diuresis Monitor lytes, renal function On low rate tube feeds to keep GI tract function 2.? COVID pneumonia, possible superimposed bacterial pneumonia Continues remdesivir ten-day course.? Sputum growing MRSA. Currently on Rocephin ten-day course and doxycycline added 02/04. 3. Alcohol dependence complicated by withdrawal, acute metabolic encephalopathy Manage as above, also restarted patient's pregabalin 4. Staph epidermidis bacteremia, contaminant Staph epi in blood culture from 01/30, likely contaminant. 4. E coli UTI, resume Pansensitive e coli.? Has received 5 days of abx. 5. Septic shock, resolved Patient off of pressor 6. Acute metabolic encephalopathy Likely multifactorial from shock and alcohol withdrawal.? Plan to wean sedation as noted. 7. PAUL Resolved.? Creatinine down to < 1.0 8. Rheumatoid arthritis Holding leflunomide.? 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 Per report this is chronic. 9. Hypertension On metoprolol and HCTZ on an outpatient basis. 10. Anxiety On venlafaxine pregabalin and nortriptyline as outpatient 11. Tobacco dependence Nicotine patch is in place Tubes/lines: Right IJ - placed 01/31 PIV LFA- placed 02/04 Mari cath - placed 01/31 ETT- placed 01/31 FEN: Pivot 1.5 at 10 cc/hr Code status Full Prophylaxis On heparin and famotidine Disposition ICU Time Spent With Patient Critical Care time: I spent a total of [] minutes of critical care time on this patient's care today; this time is exclusive of procedural time.
--- NOTE | 2022-02-05 20:29 | PM.ICURNDS ---
- Date Patient Seen: 02/05/22 Time Patient Seen: 20:29 :: This patient was seen via real time interactive two-way audiovisual telecommunication. Note: Patient weaned off of propofol due to hypertriglyceridemia and started on versed 5 mg/hr. Patient is currently being diurese and negative 1 liter. Noted to have intermittent elevated Ppk and secretions is less and more tenacious. Will continue monitoring and titrate down sedation to seek RASS goal -1 to 0. D/w RN.
[2022-02-05] MEDS: PREGABALIN 75 MG CAPSULE 150 MG PO (21:18)
[2022-02-06] VITALS (69 sets, daily range): BP systolic 96–153; BP diastolic 53–86; PULSE 79–93; RESP 0–40; TEMP 36.6–37.3; O2SAT 90–97
[2022-02-06] MEDS: FUROSEMIDE 40 MG/4 ML VIAL IV ×2 (00:12→08:42)
[2022-02-06] MEDS: dexmedeTOMIDine in 0.9 % NaCL 400 MCG/100 ML PLAST..BAG 27.413 MCG IV ×7 (00:49→20:29)
[2022-02-06] MEDS: DOXYCYCLINE 100 MG in SODIUM CHLORIDE 0.9% 100 ML IV ×2 (02:55→16:12)
[2022-02-06] MEDS: fentaNYL 1,000 MCG in DEXTROSE 5% IN WATER 230 ML 18.144 MCG IV (03:30)
[2022-02-06] MEDS: CHLORHEXIDINE GLUCONATE 15 ML CUP PO ×4 (04:21→22:33)
--- NOTE | 2022-02-06 05:04 | PC.NURSE ---
0400- Patient given bed bath and gown changed. Macerated area below the chin cleaned and patted dry. Head positioned so air could circulate. Rectal tube removed as there was no drainage and tube was clogged. Left buttock red with peeling skin. Butt paste applied to all red areas of the violet area and rectal area. Central line dressing changed. All gtt tubings changed and dated. Tmax 99.5. Patient tolerated well all turns and procedures.
[2022-02-06] MEDS: HEPARIN 5,000 UNIT/ML VIAL 5000 UNIT SUBCUT ×3 (05:21→22:32)
[2022-02-06 06:00] LABS: HEMOLYSIS < 15 (0-50); Potassium 3.1 mmol/L (3.4-5.1)
--- NOTE | 2022-02-06 07:24 | DI.CT.S_ITS ---
PROCEDURE: CT HEAD/BRAIN WO CON INDICATIONS: Persistent encephalopathy, ETOH w/d, intubated, COVID. TECHNIQUE: Noncontrast 4.5 mm thick angled axial sections acquired from the foramen magnum to the vertex, with coronal and sagittal reformats. For radiation dose reduction, the following was used: automated exposure control, adjustment of mA and/or kV according to patient size. COMPARISON: None. FINDINGS: Image quality: Excellent. CSF spaces: Basal cisterns are patent. No extra-axial fluid collections. The ventricles are symmetric in size and shape. Brain: No intracranial bleeds or masses. There is cerebral volume loss for age, with resultant ventricular and sulcal prominence. There are periventricular and deep white matter chronic small vessel ischemic changes. There is intracranial internal carotid artery atherosclerosis. Skull and face: Calvarium and visualized facial bones appear intact, without suspicious lesions. Sinuses: Mucosal thickening involving the bilateral mastoids, ethmoids, and sphenoid sinuses. 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 The right frontal sinus is hypoaerated with an air-fluid level. Prior bilateral medial nasal antral windows. IMPRESSION: 1. Chronic sinus disease. 2. No evidence of acute intracranial process. Dictated by: Ken Cuellar M.D. on 02/06/2022 at 11:44 Approved by: Ken Cuellar M.D. on 02/06/2022 at 11:48
[2022-02-06] MEDS: POTASSIUM CHLORIDE 20 MEQ/15 ML UDC 40 MEQ TUBE (08:08)
[2022-02-06] MEDS: cefTRIAXone 2,000 MG in SODIUM CHLORIDE 0.9% 100 ML 200 MG IV (08:08)
[2022-02-06] MEDS: FOLIC ACID 1 MG TABLET PO (08:09)
[2022-02-06] MEDS: chlordiazePOXIDE 25 MG CAPSULE 100 MG PO ×3 (08:09→20:29)
[2022-02-06] MEDS: FAMOTIDINE 20 MG/2 ML VIAL IV ×2 (08:09→20:30)
[2022-02-06] MEDS: PREGABALIN 75 MG CAPSULE 150 MG PO ×2 (08:09→20:29)
[2022-02-06] MEDS: VENLAFAXINE 37.5 MG TABLET PO ×2 (08:09→20:30)
[2022-02-06] MEDS: NICOTINE 14 PATCH 14 MG TOP (08:09)
[2022-02-06] MEDS: QUETIAPINE 25 MG TABLET PO ×2 (08:09→20:30)
[2022-02-06] MEDS: MULTIVITAMIN 1 TABLET 1 TAB PO (08:09)
[2022-02-06] MEDS: BUDESONIDE 0.5 MG/2 ML NEB INH ×2 (09:03→19:35)
[2022-02-06] MEDS: ALBUTEROL/IPRATROPIUM 3 ML AMPUL INH ×5 (09:03→22:11)
[2022-02-06] MEDS: REMDESIVIR 100 MG in SODIUM CHLORIDE 0.9% 230 ML 250 MG IV (09:08)
--- NOTE | 2022-02-06 09:52 | P.TELICUPN_ITS ---
Subjective Subjective IF CAMERA ACTIVATED, patient seen via real-time interactive audiovisual communication: Camera activated Consent obtained for tele-drug abuse worker care: Yes Patient Location: ICU Provider location (State): [place] Other participants/roles: Dr. Dill Current Medications Current Medications Medications: Home Medications leflunomide 20 mg tablet 20 mg PO DAILY #90 tabs 12/04/20 [Rx Confirmed 01/30/22] colchicine 0.6 mg capsule See Rx Instructions .Route .COMPLEX #180 caps 12/31/20 [Rx Confirmed 01/30/22] atorvastatin 20 mg tablet 20 mg PO DAILY #90 tabs 08/20/21 [Rx Confirmed 01/30/22] hydrochlorothiazide 25 mg tablet 25 mg PO DAILY #90 tabs 08/20/21 [Rx Confirmed 01/30/22] metoprolol tartrate 50 mg tablet 50 mg PO BID #180 tabs 08/20/21 [Rx Confirmed 01/30/22] nortriptyline 50 mg capsule 50 mg PO DAILY #90 caps 08/20/21 [Rx Confirmed 01/30/22] pregabalin 150 mg capsule 150 mg PO BID #180 caps 08/20/21 [Rx Confirmed 01/30/22] venlafaxine 37.5 mg capsule,extended release 24 hr 37.5 mg PO 2XD 01/30/22 [ History Confirmed 01/30/22] Visit Medications (administered) Generic Name Dose Route Start Last Admin Trade Name Freq PRN Reason Stop Dose Admin Albuterol 2.5 mg 01/30/22 16:37 02/05/22 01:38 Albuterol 2.5 Mg/3 Ml Neb (Adult) INH 2.5 mg [id number] PRN Administration Shortness Of Breath Albuterol/Ipratropium 3 ml 01/30/22 19:00 02/06/22 09:03 Albuterol/Ipratropium 3 Ml Ampul INH 3 ml [id number] MELVIN Administration Budesonide 0.5 mg 02/03/22 20:00 02/06/22 09:03 Budesonide 0.5 Mg/2 Ml Neb INH 0.5 mg RTBID MELVIN Administration Chlordiazepoxide HCl 100 mg 02/04/22 15:00 02/06/22 08:09 Chlordiazepoxide 25 Mg Capsule PO 100 mg TID MELVIN Administration Chlorhexidine Gluconate 15 ml 02/02/22 16:00 02/06/22 09:27 Chlorhexidine Gluconate 15 Ml Cup PO 15 ml Q6H MELVIN Administration Famotidine 20 mg 02/01/22 10:45 02/06/22 08:09 Famotidine 20 Mg/2 Ml Vial IV 20 mg BID MELVIN Administration Folic Acid 1 mg 01/31/22 09:00 02/06/22 08:09 Folic Acid 1 Mg Tablet PO 1 mg DAILY MELVIN Administration Furosemide 40 mg 02/06/22 08:00 02/06/22 08:42 Furosemide 40 Mg/4 Ml Vial IV 40 mg Q8H MELVIN Administration Heparin Sodium (Porcine) 5,000 unit 01/31/22 06:00 02/06/22 05:21 Heparin 5,000 Unit/Ml Vial SUBCUT 5,000 unit Q8HR MELVIN Administration Heparin Sodium (Porcine) 50 unit 02/02/22 00:45 02/06/22 08:10 Heparin Flush (Cl/Picc/Mid-Line) 50 Unit/5 Ml Syringe IV 50 unit BID MELVIN Administration Fentanyl 1,000 mcg/ Dextrose 250 mls @ 12.701 mls/hr 01/31/22 04:00 02/05/22 13:42 IV 1 mcg/kg/hr TITRATE MELVIN 18.144 mls/hr Administration Protocol 0.7 MCG/KG/HR NOREPINEPHRINE BITARTRATE/D5W 4 mg in 250 mls @ 30 mls/hr 01/31/22 07:09 02/01/22 02:48 Levophed IV 0 mcg/min TITRATE MELVIN 0 mls/hr Titration Protocol 8 MCG/MIN Remdesivir 100 mg/ Sodium 250 mls @ 250 mls/hr 02/01/22 11:00 02/06/22 09:08 Chloride IV 02/09/22 09:59 250 mls/hr DAILY MELVIN Administration dexmedeTOMIDine in 0.9 % NaCL 400 mcg in 100 mls @ 3.655 mls/hr 02/02/22 13:00 02/06/22 08:00 Precedex IV 1.5 mcg/kg/hr TITRATE MELVIN 27.413 mls/hr Administration Protocol 0.2 MCG/KG/HR Ceftriaxone Sodium 2,000 mg/ 100 mls @ 200 mls/hr 02/03/22 08:00 02/06/22 09:26 Sodium Chloride IV Infused Q24H MELVIN Infusion Doxycycline Hyclate 100 mg/ 100 mls @ 100 mls/hr 02/04/22 15:30 02/06/22 05:22 Sodium Chloride IV Infused Q12H MELVIN Infusion Midazolam HCl 50 mg/ Dextrose 250 mls @ 25 mls/hr 02/05/22 13:45 02/05/22 14:33 IV 5 mg/hr TITRATE MELVIN 25 mls/hr Administration Protocol 5 MG/HR Loperamide HCl 4 mg 02/03/22 03:17 02/03/22 03:51 Loperamide 2 Mg Capsule PO 4 mg PRN PRN Administration Diarrhea Methylprednisolone 40 mg 02/04/22 14:00 02/06/22 05:21 Methylprednisolone 40 Mg/Ml Vial IV 40 mg Q8HR MELVIN Administration Multivitamins 1 tab 01/31/22 09:00 02/06/22 08:09 Multivitamin 1 Tablet PO 1 tab DAILY MELVIN Administration Nicotine 14 mg 01/31/22 09:00 02/06/22 08:09 Nicotine 14 Patch TOP 14 mg DAILY MELVIN Administration Potassium Chloride 40 meq 02/06/22 08:00 02/06/22 08:08 Potassium Chloride 20 Meq/15 Ml Udc TUBE 40 meq BIDWM MELVIN Administration Pregabalin 150 mg 02/05/22 21:00 02/06/22 08:09 Pregabalin 75 Mg Capsule PO 150 mg BID MELVIN Administration Quetiapine Fumarate 25 mg 02/04/22 10:00 02/06/22 08:09 Quetiapine 25 Mg Tablet PO 25 mg BID MELVIN Administration Venlafaxine HCl 37.5 mg 02/02/22 21:00 02/06/22 08:09 Venlafaxine 37.5 Mg Tablet PO 37.5 mg BID MELVIN Administration Objective Ventilator Parameters: Ventilator Settings Pressure Control 15 FiO2 35 RT Vent Frequency 18 Ventilator Tidal Volume 390 Exhaled Vt/kg IBW 6.5 Positive End Expiratory 5 Pressure Ventilator Pressure Support 2 Inspiratory Phase Time 0.7 I:E Ratio 1:3.7 Patient Position HOB >= 30 degrees Labs Result Diagrams: 02/05/22 04:00 02/06/22 05:50 Labs: Laboratory Results - last 24 hr 02/06/22 05:50 Potassium 3.1 L Exam Vital Signs (past 8 hours): - 02/06/22 02:00 02/06/22 02:00 02/06/22 02:15 Temperature Pulse Rate 87 Respiratory Rate 18 Blood Pressure 121/63 118/63 Pulse Oximetry 93 Oxygen Delivery Method Oxygen Flow Rate 02/06/22 02:15 02/06/22 02:30 02/06/22 02:30 Temperature Pulse Rate 87 87 Respiratory Rate 18 18 Blood Pressure 119/63 Pulse Oximetry 93 93 Oxygen Delivery Method Oxygen Flow Rate 02/06/22 02:45 02/06/22 02:45 02/06/22 03:00 Temperature Pulse Rate 90 Respiratory Rate 18 Blood Pressure 129/69 120/63 Pulse Oximetry 90 L Oxygen Delivery Method Oxygen Flow Rate 02/06/22 03:00 02/06/22 03:15 02/06/22 03:15 Temperature Pulse Rate 89 85 Respiratory Rate 18 18 Blood Pressure 109/57 L Pulse Oximetry 92 91 Oxygen Delivery Method Oxygen Flow Rate 02/06/22 03:30 02/06/22 03:30 02/06/22 03:45 Temperature Pulse Rate 85 Respiratory Rate 18 Blood Pressure 110/57 L 153/72 H Pulse Oximetry 92 Oxygen Delivery Method Oxygen Flow Rate 02/06/22 03:45 02/06/22 04:00 02/06/22 04:00 Temperature 98.7 F Pulse Rate 93 H 87 Respiratory Rate 20 20 Blood Pressure 117/56 L Pulse Oximetry 92 94 Oxygen Delivery Method Oxygen Flow Rate 02/06/22 04:15 02/06/22 04:15 02/06/22 04:00 Temperature Pulse Rate 84 Respiratory Rate 18 Blood Pressure 117/57 L Pulse Oximetry 94 95 Oxygen Delivery Method Mechanical Ventilation Oxygen Flow Rate 35 02/06/22 05:00 02/06/22 04:30 02/06/22 04:30 Temperature Pulse Rate 82 Respiratory Rate 18 Blood Pressure 106/55 L Pulse Oximetry 94 Oxygen Delivery Method Mechanical Ventilation Oxygen Flow Rate 02/06/22 04:45 02/06/22 04:45 02/06/22 05:00 Temperature Pulse Rate 82 Respiratory Rate 18 Blood Pressure 102/54 L 108/57 L Pulse Oximetry 95 Oxygen Delivery Method Oxygen Flow Rate 02/06/22 05:00 02/06/22 05:15 02/06/22 05:15 Temperature Pulse Rate 82 84 Respiratory Rate 18 18 Blood Pressure 112/58 L Pulse Oximetry 95 94 Oxygen Delivery Method Oxygen Flow Rate 02/06/22 05:30 02/06/22 05:30 02/06/22 05:45 Temperature Pulse Rate 86 Respiratory Rate 18 Blood Pressure 115/55 L 103/54 L Pulse Oximetry 94 Oxygen Delivery Method Oxygen Flow Rate 02/06/22 05:45 02/06/22 06:00 02/06/22 06:00 Temperature Pulse Rate 81 83 Respiratory Rate 18 18 Blood Pressure 107/57 L Pulse Oximetry 93 93 Oxygen Delivery Method Oxygen Flow Rate 02/06/22 06:15 02/06/22 06:15 02/06/22 06:30 Temperature Pulse Rate 81 Respiratory Rate 18 Blood Pressure 104/58 L 113/57 L Pulse Oximetry 93 Oxygen Delivery Method Oxygen Flow Rate 02/06/22 06:30 02/06/22 06:45 02/06/22 06:45 Temperature Pulse Rate 81 80 Respiratory Rate 18 18 Blood Pressure 115/58 L Pulse Oximetry 93 94 Oxygen Delivery Method Oxygen Flow Rate 35 02/06/22 07:00 02/06/22 07:00 02/06/22 07:15 Temperature Pulse Rate 79 Respiratory Rate 18 Blood Pressure 110/58 L 111/55 L Pulse Oximetry 94 Oxygen Delivery Method Oxygen Flow Rate 02/06/22 07:15 02/06/22 07:30 02/06/22 07:30 Temperature Pulse Rate 81 79 Respiratory Rate 18 18 Blood Pressure 111/58 L Pulse Oximetry 93 93 Oxygen Delivery Method Oxygen Flow Rate 02/06/22 07:45 02/06/22 07:45 02/06/22 08:00 Temperature Pulse Rate 80 Respiratory Rate 18 Blood Pressure 116/59 L 109/57 L Pulse Oximetry 94 Oxygen Delivery Method Oxygen Flow Rate 02/06/22 08:00 02/06/22 08:15 02/06/22 08:15 Temperature Pulse Rate 88 85 Respiratory Rate 18 18 Blood Pressure 118/59 L Pulse Oximetry 93 94 Oxygen Delivery Method Oxygen Flow Rate Fraction of Inspired Oxygen 35 SaO2/FiO2 Ratio 268 Oxygen Delivery Method Mechanical Ventilation Oxygen Flow Rate 35 Assessment & Plan Assessment & Plan narrative: patient seen with bedsde nurse and provider Dr. Dill chart/labs/imaging reviewed 62y ear old female admitted to ICU with: acute respiratory failure covid pneumonia etoh withdrawal ams currently afebrile, HR stable remains intubated, sedated, agitate off sedation suggest -continue neurochecks/seizure precautions -check ct head/chest -goal RASS -1 -daily SAH/SBT trials will try today after CT -keep off propofol -if no signs of withdrawal would dc versed -continue librium 100mg tid -continue seroquel 25mg q12, monitor qtc -if agitation/withdrawal like symptoms persistent can increase libirum/seroquel can also add klonopin/valproate -vent support, minimal settings -dc lasix tid, can give doses as needed -please check daily labs -continue thiamine/folate -if ct chest shows significant effusion suggest IR for thoracentesis, if mucous plug/atelectasis suggest bronchoscopy --chest pt/pulm toilet -steroids/redesevir for covid suggest total 1 week -rocephin/azithro for mssa/e.col suggest total 1 week -echo ef70%, valves clear -monitor ins/outs -replace lytes prn -gi/dvt ppx -please call eICU if condition changes total ccm time 55 mins Time Spent With Patient Critical Care time: I spent a total of [] minutes of critical care time on this patient's care today; this time is exclusive of procedural time.
--- NOTE | 2022-02-06 09:52 | DI.CT.S_ITS ---
PROCEDURE: CT CHEST WO CON INDICATIONS: eval efffusion TECHNIQUE: Noncontrast 5 mm thick sections acquired from the pulmonary apices to the posterior costophrenic angles. 1 mm lung window, 5 mm thick coronal and sagittal and 7 mm axial MIP reformats were then acquired. For radiation dose reduction, the following was used: automated exposure control, adjustment of mA and/or kV according to patient size. COMPARISON: [facility], CR, XR CHEST 1V, 02/04/2022, 16:26. FINDINGS: Image quality: Suboptimal due to motion artifact Lungs and pleura: Large right pleural effusion present. Consolidative and ground-glass opacity is present in the adjacent right lower lobe. A few rounded areas of lucency are also present within the consolidation (for example 3/210) raising the possibility of areas of cavitation. No left pleural effusion demonstrated. Patchy ground-glass opacities present within the left lung and the aerated portions of the right lung. Endotracheal tube terminates above the nona. Mediastinum: No pericardial effusion. Borderline enlarged lower paratracheal lymph node measuring 1.0 cm, nonspecific, could be reactive. Tip of the right internal jugular central venous catheter terminates at the upper SVC/confluence of the brachiocephalic veins. An NG/OG tube is present, distal tip below the diaphragm outside the field of view. Bones and chest wall: No axillary or supraclavicular adenopathy by size criteria. Multilevel degenerative change of the visualized spine. Bilateral collapsed breast implants. Abdomen: Visualized upper abdominal solid organs and bowel loops appear normal in the absence of contrast. IMPRESSION: 1. Large right pleural effusion. Adjacent consolidative and ground-glass opacities in the right lower lobe have an appearance more suggestive of airspace disease/consolidation rather than volume loss/atelectasis. Additionally, there are possible small foci of cavitation present. Findings raise the possibility of pneumonia with parapneumonic effusion, empyema not excludable. 2. Patchy ground-glass opacities present throughout the left lung and the aerated portion of the right lung, could reflect multifocal pneumonia however edema and/or hypoventilatory atelectasis could also be contributing. Dictated by: Wilfrido Alicea M.D. on 02/06/2022 at 12:01 Approved by: Wilfrido Alicea M.D. on 02/06/2022 at 12:14
[2022-02-06 11:07] LABS: Hematocrit 26.6 % (36-46); Hemoglobin 8.8 g/dL (12.0-16.0); Mean Corpuscular HGB Conc 33.1 % (30-36); Mean Corpuscular Hemoglobin 31.3 PG (26-34); Mean Corpuscular Volume 94.4 fL (80-100); Platelet Count 448 X10^3/uL (150-400); Red Blood Cell Count 2.82 X10^6/uL (4.0-5.2); Red Cell Distribution Width 14.8 % (11.6-14.8); White Blood Cell Count 26.7 X10^3/uL (4.5-11.0)
[2022-02-06 11:15] LABS: Add Manual Diff / Slide Review YES
[2022-02-06 11:22] LABS: BUN Creatinine Ratio 48.2 (6-22); Blood Urea Nitrogen 41 mg/dL (7-17); Calcium 8.2 mg/dL (8.4-10.2); Carbon Dioxide 31 mmol/L (22-32); Chloride 99 mmol/L (98-107); Estimated Glomerular Filt Rate > 60 mL/min (>60); Glucose 163 mg/dL (80-110); HEMOLYSIS < 15 (0-50); Magnesium 1.7 mg/dL (1.6-2.3); Phosphorous 3.1 mg/dL (2.8-4.1); Potassium 3.4 mmol/L (3.4-5.1); Sodium 138 mmol/L (137-145)
[2022-02-06 11:28] LABS: Neutrophils Absolute Manual 21093 /uL (3000-5900); Total Cells Counted 100
[2022-02-06 11:29] LABS: Platelet Estimate Incr; RBC Morphology Normal Morphology
--- NOTE | 2022-02-06 12:23 | PC.NURSE ---
0930 - AM rounds with internetworking technician, CT of head and chest ordered. Followed by sedation vacation. Pt responds to painful stimuli but unable to follow verbal commands. 1115 - Down to CT scan. Pt tolerated well. Returned to room, violet-care and repositioned. 1205 - Versed and Fentanyl infusion stopped. Pt s\o updated to plan of care. Monitor LOC.
[2022-02-06] MEDS: POTASSIUM CHLORIDE 20 MEQ/15 ML UDC TUBE (16:14)
--- NOTE | 2022-02-06 16:21 | DIET.PN1 ---
Dietary Progress Note Assessment: Per staff eICU recommended keeping TF to 40 ml/hr or less. Pt currently having diarrhea on Pivot 1.5 at 20 ml/hr per nursing. Will switch to Jevity 1.2 to see if diarrhea subsides. Has d/c'd propofol due to elevated triglycerides. Jevity 1.2 @ 40ml/hr with 5 Prosource pkts per day: 1372 kcals (20kcals/kg) meets 75-94% of kcal needs 108g PRO (1.5g/kg) meets 100% of PRO needs 163g CHO feed water: 775 ml 200ml q 4 hr: 1200ml total fluids from feed and flushes: 1975ml (meets 98% of needs) Ht: 167.64 cm Wt: 68.9 kg BMI: 25.8 Last BM: 02/06/22 (02/06/22 11:15) MNA: Tono Score: 12 Diet: 01/31/22 04:49 NPO Diet Diet Modifications: NPO Type: Strict 02/02/22 Lunch Tube Feeding Diet Diet Modifications: TF Supplement type: Pivot 1.5 TF mode of delivery: Continuous Starting flow rate mL/hr: 20 Flow rate goal mL/hr: 45 Titration Schedule to reach Goal Rate: 10-20mL q8h as tolerated Max total daily volume in mL: 2,020 Free fluid: 200 Free Water Frequency: Q4H Comment: hospitalist/electric distribution checker to manage IVF vs water flushes for fluid balance Nutrition Type of Feeding Tube NG/OG 02/06/22 14:00 Type of Feeding Tube NG/OG 02/06/22 12:00 Type of Feeding Tube NG/OG 02/06/22 05:00 Type of Feeding Tube NG/OG 02/05/22 16:28 Type of Feeding Tube NG/OG 02/05/22 05:00 Type of Feeding Tube NG/OG 02/04/22 17:00 Labs: RBC 2.82 X10^6/uL (4.0-5.2) L 02/06/22 10:45 Hgb 8.8 g/dL (12.0-16.0) L 02/06/22 10:45 Hct 26.6 % (36-46) L 02/06/22 10:45 Creatinine 0.85 mg/dL (0.52-1.04) 02/06/22 10:45 Lactate 1.4 mmol/L (0.7-2.1) 01/30/22 12:15 NT-Pro-B Natriuret Pep 1500 pg/mL (<125) H 01/30/22 12:15 Nutrition Diagnosis: inadequate oral intake r/t NPO on vent Interventions: Recc continuous enteral nutrition via NG/OG of formula Jevity 1.2 starting at 20mL/h titrating by 10-20mL q6h as tolerated up to goal of 40mL/h with 200mL free water flushes q4h. Please reconcile IVF vs free water flushes to find fluid balance. TF and flushes provide 1975mL. Rec 1 Prosource pkt with flushes 5 times per day EER: 1460-1825kcals (20-25kcal/kg), 75-109g PRO (1.0-1.5g/kg) Monitoring/Evaluations: following TF tolerance, renal and electrolyte labs, SBTs. Electronically Signed by: Marlee Milligan 02/06/22 16:21 Clinical Dietitian [address] [address]
--- NOTE | 2022-02-06 18:13 | PM.PN.1 ---
Subjective Subjective Interval history: 62-year-old female with anxiety, rheumatoid arthritis, tobacco dependence, hypertension, hyperlipidemia, and alcohol dependence presently hospital day 7 admitted with COVID pneumonia, acute hypoxic respiratory failure requiring intubation/mechanical ventilation, septic shock, PAUL, and acute encephalopathy.? Additionally, she is found to have staph bacteremia, MSSA in the sputum and E coli UTI. Pt remains intubated and sedated.? She is back on Versed as well as fentanyl for sedation. She remains on Precedex. Propofol was discontinued secondary to hypertriglyceridemia. ? Patient has been receiving librium 100 mg TID and Seroquel 25 mg twice daily as well.? She is tolerating tube feeds at 10 cc/hour. Manager Gift wanted a head CT performed yesterday but it was ultimately not ordered. Exam Vital Signs (past 8 hours): - 02/06/22 10:15 02/06/22 10:15 02/06/22 12:00 Pulse Rate 90 86 Respiratory Rate 18 18 Blood Pressure 119/62 Pulse Oximetry 93 92 Oxygen Delivery Method Oxygen Flow Rate 02/06/22 12:02 02/06/22 12:02 02/06/22 12:30 Pulse Rate 88 84 Respiratory Rate 19 18 Blood Pressure 108/58 L Pulse Oximetry 92 92 Oxygen Delivery Method Oxygen Flow Rate 02/06/22 13:00 02/06/22 13:00 02/06/22 17:00 Pulse Rate Respiratory Rate Blood Pressure Pulse Oximetry 93 Oxygen Delivery Method Mechanical Ventilation Mechanical Ventilation Mechanical Ventilation Oxygen Flow Rate 35 02/06/22 17:00 Pulse Rate Respiratory Rate Blood Pressure Pulse Oximetry 96 Oxygen Delivery Method Mechanical Ventilation Oxygen Flow Rate 35 Fraction of Inspired Oxygen 35 SaO2/FiO2 Ratio 268 Oxygen Delivery Method Mechanical Ventilation Oxygen Flow Rate 35 Narrative Exam Narrative: GEN:? Ill-appearing middle-aged female, intubated and sedated HEENT:NC, Face symmetric, she does have generalized swelling to her face/mouth/neck/tongue, scleral edema noted bilaterally as well CHEST: Respiratory excursions symmetric, diffuse bilateral wheezes, improved aeration bilaterally CV: RRR, no M/R/G ABD: Soft, distended,? BT present in all 4 quadrants, no organomegaly or masses appreciated but distention limits exam EXTR: warm, livido reticularis is not present today (she does have this intermittently on an outpatient basis) prior 3rd toe amputation on the left side SKIN: warm and dry, no rash NEURO:? Intubated/sedated, nonfocal Objective Labs Result Diagrams: 02/06/22 10:45 02/06/22 10:45 Labs: Laboratory Results - last 24 hr 02/06/22 02/06/22 02/06/22 05:50 10:45 10:45 WBC 26.7 H RBC 2.82 L Hgb 8.8 L Hct 26.6 L MCV 94.4 MCH 31.3 MCHC 33.1 RDW 14.8 Plt Count 448 H Neut % (Auto) Not Reportable Lymph % (Auto) Not Reportable [place] % (Auto) Not Reportable Eos % (Auto) Not Reportable Baso % (Auto) Not Reportable Lymph # (Auto) Not Reportable [place] # (Auto) Not Reportable Baso # (Auto) Not Reportable Total Counted 100 Seg Neutrophils % 79.0 H Lymphocytes % (Manual) 10.0 L Monocytes % (Manual) 7.0 Metamyelocytes % 2.0 H Myelocytes % 2.0 H Neutrophils # (Manual) 23296 H Platelet Estimate Incr RBC Morphology Normal morphology Sodium 138 Potassium 3.1 L 3.4 Chloride 99 Carbon Dioxide 31 BUN 41 H Creatinine 0.85 Estimated GFR > 60 BUN/Creatinine Ratio 48.2 H Glucose 163 H Calcium 8.2 L Phosphorus 3.1 Magnesium 1.7 PFSH Medical History Alcohol dependence Anemia Anxiety Chronic back pain (~2013) COVID-19 virus infection Degenerative joint disease (DJD) of lumbar spine (~1975) Hyperlipidemia Hypertension Osteoarthritis (~2013) Pneumonia Rheumatoid arthritis (~2009) Scoliosis (~1975) Tobacco dependence Surgical History Anesthesia History of amputation of toe (~2018) History of incision and drainage (03/19/20) Status post left foot surgery (08/23/20) Family History Father Cancer Hypertension Hyperlipidemia Mother Hypertension Brother Testicular cancer Hypertension Brother Diabetes mellitus Hypertension Hyperlipidemia Social History household members: significant other and family Smoking Status: Current every day smoker Tobacco: How many years used: 40 quit status: quit date established (September 08 2020) second hand exposure: No alcohol intake: current substance use type: does not use Assessment & Plan Assessment & Plan narrative: 1. Acute hypoxic respiratory failure Etiology is felt to be COVID pneumonia.? Possible superimposed bacterial pneumonia as well.? Patient remains on remdesivir (D7/10)/dexamethasone (received 5/10 doses) was transitioned to methylprednisolone on 02/04/2022 due to smoking history and likely underlying undiagnosed COPD/rocephin 2 g IV Q 24/doxycycline 100 mg IV q.12.? Appreciate management per agricultural service worker.? Propofol was discontinued secondary to hypertriglyceridemia. She is on a Versed and fentanyl infusion now. Manager Gift recommends weaning sedation in an attempt for spontaneous breathing trial and to obtain a chest CT as well. Chest CT revealed a large right pleural effusion with adjacent ground-glass opacities in the right lower lobe suggestive of airspace disease/consolidation rather than volume loss/atelectasis. There additionally possibly small foci of cavitation present, raising possibility of pneumonia with parapneumonic effusion. Attempted to obtain an ultrasound-guided thoracentesis. However the sewing techniques demonstrator advised this would not be possible due to need to be able to position the patient upright. I additionally attempted to speak to the radiologist directly but but not connect with them in the radiology reading room. I spoke to the radiologist correctional therapy teacher but she was not available until after 5:00 p.m.. After further discussion, Dr. Ernst did advise that previous efforts were made to attempt thoracentesis earlier this week and were unsuccessful. At this point, options would be ongoing empiric treatment for pneumonia/parapneumonic effusion, thoracentesis after extubation, or bedside thoracentesis. 2.? COVID pneumonia with possible superimposed bacterial pneumonia Continues remdesivir.? Start methyprednisolone as noted.? Neb treatments being given regularly as well.? Given her underlying smoking hx, she likely has a component of undiagnosed COPD.? She has had 2 sputum samples positive for light growth of MSSA, from 01/31 and 02/02 and IV doxycycline was added on February 04.? Sensitivities have since resulted from February 04 revealing MRSA in the sputum. Follow-up sputum culture was obtained on February 03 which again is showing scant staph aureus, sensitivities pending. MRSA from the February 02 specimen is sensitive to doxycycline with an DIMPLE of less than 0.5 3. Alcohol dependence complicated by withdrawal Patient is back on a Versed drip. Remains on Librium and Seroquel. Goal is to reduce the Versed as she appears to be through her withdrawal, and is at least 7 days out from her last drink. 4. Staph aureus bacteremia MSSA in 1 blood culture from 01/30, making it likely this was a contaminant.? f/u cultures are negative to date. 5. MRSA positive sputum Please see above. 6. E coli UTI Pansensitive e coli.? Mari treated at this point. 5. Septic shock Remains on Rocephin.? Appreciate agricultural service worker management.? 7. Acute metabolic encephalopathy Likely multifactorial from shock and alcohol withdrawal.? Head CT was negative 7. PAUL Resolved.? Creatinine down to 0.93. 8. Rheumatoid arthritis Holding leflunomide (she reportedly discontinued this a couple of months ago on her own).? 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 Per report this is chronic. 9. Hypertension On metoprolol and HCTZ on an outpatient basis, which have been held.? BPs generally have been normotensive here. 10. Anxiety On venlafaxine 11. Tobacco dependence Nicotine patch is in place 12. Hyponatremia Improved on today's labs, up to 138 13. Azotemia BUN has been steadily rising. Patient has not been diuresing despite furosemide. Likely secondary to 3rd spacing due to severe hypoalbuminemia (2.8 on yesterday's labs, improved from 2.4 the prior day). Furosemide will be discontinued. Tubes/lines: Right IJ - placed 01/31 PIV LFA- placed 02/04 Mari cath - placed 01/31 ETT- placed 01/31 FEN: Pivot 1.5 at 10 cc/hr--agricultural service worker has approved gradual titration up to a max of 40 cc/hour. This will hopefully improve her nutritional status and low albumin state Resolved issues: PAUL Septic shock - Etiology is likely multifactorial from UTI, COVID pneumonia, possible superimposed bacterial pneumonia.? Worsening leukocytosis.? Last CXR 02/02.? Will repeat CXR today.? Blood cxs done 02/02.? Urine cx done on admit +e coli (now fully treated) Hypokalemia Code status Full Prophylaxis On heparin and famotidine Disposition ICU Time Spent With Patient Critical Care time: I spent a total of [] minutes of critical care time on this patient's care today; this time is exclusive of procedural time.
--- NOTE | 2022-02-06 20:15 | PM.ICURNDS ---
- Date Patient Seen: 02/06/22 Time Patient Seen: 20:17 :: This patient was seen via real time interactive two-way audiovisual telecommunication. Note: CTH showed no acute abnormality and CT chest showed right pleural effusion with compressive atelectasis vs consolidation. Patient remains intubated and sedated. Off versed gtt. On precedex gtt. Recommend right thoracentesis to rule out empyema. Continue titrating down precedex to seek RASS goal -1 to 0. D/w RN.
[2022-02-07] VITALS (40 sets, daily range): BP systolic 92–168; BP diastolic 54–87; PULSE 83–128; RESP 18–39; TEMP 36.3–36.8; O2SAT 92–100
[2022-02-07] MEDS: dexmedeTOMIDine in 0.9 % NaCL 400 MCG/100 ML PLAST..BAG 27.413 MCG IV ×3 (00:52→11:43)
[2022-02-07] MEDS: DOXYCYCLINE 100 MG in SODIUM CHLORIDE 0.9% 100 ML IV ×2 (04:08→15:18)
[2022-02-07] MEDS: CHLORHEXIDINE GLUCONATE 15 ML CUP PO ×3 (04:08→16:47)
[2022-02-07 04:37] LABS: Hematocrit 25.6 % (36-46); Hemoglobin 8.4 g/dL (12.0-16.0); Mean Corpuscular HGB Conc 32.6 % (30-36); Mean Corpuscular Hemoglobin 31.4 PG (26-34); Mean Corpuscular Volume 96.3 fL (80-100); Platelet Count 481 X10^3/uL (150-400); Red Blood Cell Count 2.66 X10^6/uL (4.0-5.2); Red Cell Distribution Width 14.8 % (11.6-14.8); White Blood Cell Count 26.2 X10^3/uL (4.5-11.0)
[2022-02-07 04:41] LABS: Add Manual Diff / Slide Review YES
[2022-02-07 04:43] LABS: Blood Urea Nitrogen 42 mg/dL (7-17); Calcium 8.2 mg/dL (8.4-10.2); Carbon Dioxide 29 mmol/L (22-32); Chloride 104 mmol/L (98-107); Estimated Glomerular Filt Rate > 60 mL/min (>60); Glucose 184 mg/dL (80-110); HEMOLYSIS < 15 (0-50); Magnesium 1.8 mg/dL (1.6-2.3); Potassium 3.6 mmol/L (3.4-5.1); Sodium 138 mmol/L (137-145)
[2022-02-07 04:48] LABS: Phosphorous 3.2 mg/dL (2.8-4.1)
[2022-02-07] MEDS: HEPARIN 5,000 UNIT/ML VIAL 5000 UNIT SUBCUT ×3 (06:48→21:12)
[2022-02-07 06:51] LABS: Clostridium Difficile Tox PCR Negative for C. diff (Negative)
[2022-02-07 07:03] LABS: Neutrophils Absolute Manual 23056 /uL (3000-5900); RBC Morphology Normal Morphology; Total Cells Counted 100
[2022-02-07] MEDS: FOLIC ACID 1 MG TABLET PO (08:05)
[2022-02-07] MEDS: POTASSIUM CHLORIDE 20 MEQ/15 ML UDC TUBE ×2 (08:05→16:47)
[2022-02-07] MEDS: MULTIVITAMIN 1 TABLET 1 TAB PO (08:05)
[2022-02-07] MEDS: PREGABALIN 75 MG CAPSULE 150 MG PO ×2 (08:05→21:11)
[2022-02-07] MEDS: VENLAFAXINE 37.5 MG TABLET PO ×2 (08:06→21:11)
[2022-02-07] MEDS: NICOTINE 14 PATCH 14 MG TOP (08:06)
[2022-02-07] MEDS: QUETIAPINE 25 MG TABLET PO ×2 (08:06→21:11)
[2022-02-07] MEDS: FAMOTIDINE 20 MG/2 ML VIAL IV ×2 (08:07→21:11)
[2022-02-07] MEDS: cefTRIAXone 2,000 MG in SODIUM CHLORIDE 0.9% 100 ML 200 MG IV (08:07)
--- NOTE | 2022-02-07 08:35 | P.TELICUPN_ITS ---
Subjective Subjective IF CAMERA ACTIVATED, patient seen via real-time interactive audiovisual communication: Camera activated Consent obtained for tele-cash management coordinator care: Yes Patient Location: ICU Provider location (State): [place] Other participants/roles: Bedside RN Interval history: CTH showed no acute abnormality. CT chest showed right pleural effusuon w/ atelectasis vs consolidation. Remains encephalopathic despite being off of versed gtt X 18 hours. Will stop precedex and librium therapy. Switch solumedrol to decadron 6 mg. Current Medications Current Medications Medications: Home Medications leflunomide 20 mg tablet 20 mg PO DAILY #90 tabs 12/04/20 [Rx Confirmed 01/30] colchicine 0.6 mg capsule See Rx Instructions .Route .COMPLEX #180 caps 12/31/20 [Rx Confirmed 01/30/22] atorvastatin 20 mg tablet 20 mg PO DAILY #90 tabs 08/20/21 [Rx Confirmed 01/30/22] hydrochlorothiazide 25 mg tablet 25 mg PO DAILY #90 tabs 08/20/21 [Rx Confirmed 01/30/22] metoprolol tartrate 50 mg tablet 50 mg PO BID #180 tabs 08/20/21 [Rx Confirmed 01/30/22] nortriptyline 50 mg capsule 50 mg PO DAILY #90 caps 08/20/21 [Rx Confirmed 01/30/22] pregabalin 150 mg capsule 150 mg PO BID #180 caps 08/20/21 [Rx Confirmed 01/30/22] venlafaxine 37.5 mg capsule,extended release 24 hr 37.5 mg PO 2XD 01/30/22 [History Confirmed 01/30/22] Visit Medications (administered) Generic Name Dose Route Start Last Admin Trade Name Freq PRN Reason Stop Dose Admin Albuterol 2.5 mg 01/30/22 16:37 02/05/22 01:38 Albuterol 2.5 Mg/3 Ml Neb (Adult) INH 2.5 mg [id number] PRN Administration Shortness Of Breath Albuterol/Ipratropium 3 ml 01/30/22 19:00 02/06/22 22:11 Albuterol/Ipratropium 3 Ml Ampul INH 3 ml [id number] MELVIN Administration Budesonide 0.5 mg 02/03/22 20:00 02/06/22 19:35 Budesonide 0.5 Mg/2 Ml Neb INH 0.5 mg RTBID MELVIN Administration Chlorhexidine Gluconate 15 ml 02/02/22 16:00 02/07/22 04:08 Chlorhexidine Gluconate 15 Ml Cup PO 15 ml Q6H MELVIN Administration Famotidine 20 mg 02/01/22 10:45 02/07/22 08:07 Famotidine 20 Mg/2 Ml Vial IV 20 mg BID MELVIN Administration Folic Acid 1 mg 01/31/22 09:00 02/07/22 08:05 Folic Acid 1 Mg Tablet PO 1 mg DAILY MELVIN Administration Heparin Sodium (Porcine) 5,000 unit 01/31/22 06:00 02/07/22 06:48 Heparin 5,000 Unit/Ml Vial SUBCUT 5,000 unit Q8HR MELVIN Administration Heparin Sodium (Porcine) 50 unit 02/02/22 00:45 02/07/22 08:07 Heparin Flush (Cl/Picc/Mid-Line) 50 Unit/5 Ml Syringe IV 50 unit BID MELVIN Administration Fentanyl 1,000 mcg/ Dextrose 250 mls @ 12.701 mls/hr 01/31/22 04:00 02/06/22 12:05 IV 0 mcg/kg/hr TITRATE MELVIN 0 mls/hr Titration Protocol 0.7 MCG/KG/HR NOREPINEPHRINE BITARTRATE/D5W 4 mg in 250 mls @ 30 mls/hr 01/31/22 07:09 02/01/22 02:48 Levophed IV 0 mcg/min TITRATE MELVIN 0 mls/hr Titration Protocol 8 MCG/MIN Remdesivir 100 mg/ Sodium 250 mls @ 250 mls/hr 02/01/22 11:00 02/06/22 10:38 Chloride IV 02/09/22 09:59 Infused DAILY MELVIN Infusion dexmedeTOMIDine in 0.9 % NaCL 400 mcg in 100 mls @ 3.655 mls/hr 02/02/22 13:00 02/07/22 04:09 Precedex IV 1.5 mcg/kg/hr TITRATE MELVIN 27.413 mls/hr Administration Protocol 0.2 MCG/KG/HR Ceftriaxone Sodium 2,000 mg/ 100 mls @ 200 mls/hr 02/03/22 08:00 02/07/22 08:07 Sodium Chloride IV 200 mls/hr Q24H MELVIN Administration Doxycycline Hyclate 100 mg/ 100 mls @ 100 mls/hr 02/04/22 15:30 02/07/22 04:08 Sodium Chloride IV 100 mls/hr Q12H MELVIN Administration Midazolam HCl 50 mg/ Dextrose 250 mls @ 25 mls/hr 02/05/22 13:45 02/06/22 12:05 IV 0 mg/hr TITRATE MELVIN 0 mls/hr Infusion Protocol 5 MG/HR Loperamide HCl 4 mg 02/03/22 03:17 02/03/22 03:51 Loperamide 2 Mg Capsule PO 4 mg PRN PRN Administration Diarrhea Multivitamins 1 tab 01/31/22 09:00 02/07/22 08:05 Multivitamin 1 Tablet PO 1 tab DAILY MELVIN Administration Nicotine 14 mg 01/31/22 09:00 02/07/22 08:06 Nicotine 14 Patch TOP 14 mg DAILY MELVIN Administration Potassium Chloride 20 meq 02/06/22 10:12 02/07/22 08:05 Potassium Chloride 20 Meq/15 Ml Udc TUBE 20 meq BIDWM MELVIN Administration Pregabalin 150 mg 02/05/22 21:00 02/07/22 08:05 Pregabalin 75 Mg Capsule PO 150 mg BID MELVIN Administration Quetiapine Fumarate 25 mg 02/04/22 10:00 02/07/22 08:06 Quetiapine 25 Mg Tablet PO 25 mg BID MELVIN Administration Venlafaxine HCl 37.5 mg 02/02/22 21:00 02/07/22 08:06 Venlafaxine 37.5 Mg Tablet PO 37.5 mg BID MELVIN Administration Objective Ventilator Parameters: Ventilator Settings Pressure Control 15 FiO2 35 RT Vent Frequency 18 Ventilator Tidal Volume 390 Exhaled Vt/kg IBW 6.5 Positive End Expiratory 5 Pressure Ventilator Pressure Support 2 Inspiratory Phase Time 0.7 I:E Ratio 1:3.1 Patient Position HOB >= 30 degrees Labs Result Diagrams: 02/07/22 04:20 02/07/22 04:20 Labs: Laboratory Results - last 24 hr 02/06/22 02/06/22 02/07/22 10:45 10:45 04:20 WBC 26.7 H 26.2 H RBC 2.82 L 2.66 L Hgb 8.8 L 8.4 L Hct 26.6 L 25.6 L MCV 94.4 96.3 MCH 31.3 31.4 MCHC 33.1 32.6 RDW 14.8 14.8 Plt Count 448 H 481 H Neut % (Auto) Not Reportable Not Reportable Lymph % (Auto) Not Reportable Not Reportable [place] % (Auto) Not Reportable Not Reportable Eos % (Auto) Not Reportable Not Reportable Baso % (Auto) Not Reportable Not Reportable Lymph # (Auto) Not Reportable Not Reportable [place] # (Auto) Not Reportable Not Reportable Baso # (Auto) Not Reportable Not Reportable Total Counted 100 100 Seg Neutrophils % 79.0 H 87.0 H Band Neutrophils % 1.0 L Lymphocytes % (Manual) 10.0 L 7.0 L Atypical Lymphs % 2.0 H Monocytes % (Manual) 7.0 3.0 Metamyelocytes % 2.0 H Myelocytes % 2.0 H Neutrophils # (Manual) 55489 H 11220 H Platelet Estimate Incr RBC Morphology Normal morphology Normal morphology Sodium 138 Potassium 3.4 Chloride 99 Carbon Dioxide 31 BUN 41 H Creatinine 0.85 Estimated GFR > 60 BUN/Creatinine Ratio 48.2 H Glucose 163 H Calcium 8.2 L Phosphorus 3.1 Magnesium 1.7 C. difficile Tox (PCR) 02/07/22 02/07/22 02/07/22 04:20 04:20 05:26 WBC RBC Hgb Hct MCV MCH MCHC RDW Plt Count Neut % (Auto) Lymph % (Auto) [place] % (Auto) Eos % (Auto) Baso % (Auto) Lymph # (Auto) [place] # (Auto) Baso # (Auto) Total Counted Seg Neutrophils % Band Neutrophils % Lymphocytes % (Manual) Atypical Lymphs % Monocytes % (Manual) Metamyelocytes % Myelocytes % Neutrophils # (Manual) Platelet Estimate RBC Morphology Sodium 138 Potassium 3.6 Chloride 104 Carbon Dioxide 29 BUN 42 H Creatinine 0.75 Estimated GFR > 60 BUN/Creatinine Ratio 56.0 H Glucose 184 H Calcium 8.2 L Phosphorus 3.2 Magnesium 1.8 C. difficile Tox (PCR) Negative for c. diff Exam Vital Signs (past 8 hours): - 02/07/22 01:00 02/07/22 01:00 02/07/22 01:00 Temperature Pulse Rate 84 Respiratory Rate 18 Blood Pressure 122/59 L Pulse Oximetry 94 Oxygen Delivery Method Mechanical Ventilation Oxygen Flow Rate 02/07/22 01:00 02/07/22 02:00 02/07/22 02:00 Temperature Pulse Rate 84 Respiratory Rate 21 Blood Pressure 127/60 Pulse Oximetry 94 93 Oxygen Delivery Method Mechanical Ventilation Oxygen Flow Rate 02/07/22 03:00 02/07/22 03:00 02/07/22 04:00 Temperature Pulse Rate 86 Respiratory Rate 22 Blood Pressure 130/60 125/59 L Pulse Oximetry 93 Oxygen Delivery Method Oxygen Flow Rate 02/07/22 04:00 02/07/22 05:00 02/07/22 05:01 Temperature 97.7 F Pulse Rate 87 86 Respiratory Rate 21 39 H Blood Pressure 125/60 Pulse Oximetry 94 95 Oxygen Delivery Method Oxygen Flow Rate 35 02/07/22 05:01 02/07/22 05:19 02/07/22 05:19 Temperature Pulse Rate 86 92 H Respiratory Rate 39 H 30 H Blood Pressure 119/58 L Pulse Oximetry 95 92 Oxygen Delivery Method Oxygen Flow Rate 02/07/22 05:00 02/07/22 05:00 02/07/22 06:00 Temperature Pulse Rate Respiratory Rate Blood Pressure 114/56 L Pulse Oximetry 95 Oxygen Delivery Method Mechanical Ventilation Mechanical Ventilation Oxygen Flow Rate 02/07/22 06:00 02/07/22 07:00 02/07/22 07:00 Temperature Pulse Rate 86 83 Respiratory Rate 29 H 30 H Blood Pressure 112/58 L Pulse Oximetry 96 94 Oxygen Delivery Method Oxygen Flow Rate Fraction of Inspired Oxygen 35 SaO2/FiO2 Ratio 268 Oxygen Delivery Method Mechanical Ventilation Oxygen Flow Rate 35 Narrative Exam Narrative: Intubated and sedated; Assessment & Plan Assessment & Plan narrative: NEURO: # Acute encephalopathy -- Secondary delirium and sedatives -- Stop librium -- Check SAT -- RASS goal -1 to 0 -- Seek early mobility # Alcohol abuse -- On sedation as above -- On thiamine, folic acid, and MTV -- On seizure precaution RESP: # Acute hypoxemia respiratory failure -- Intubated and sedated -- Secondary to PNA -- On nontoxic level of FIO2 -- On abx as below -- Daily SAT and SBT -- HOB elevation -- Aspiration precaution -- Goal SpO2 > 88% # Right pleural effusion -- Will need diagnostic thoracentesis to rule out parapneumonic effusion vs empyema -- On abx as below ID: # COVID PNA -- Switch solumedrol to decadron 6 mg X 10 days -- On remdesivir therapy -- On contact, airborne, and droplet precautions # Severe sepsis -- Secondary to E. coli, MRSA PNA, staph bacteremia -- On ceftriaxone and doxycyline -- Repeat blood cx 02/02 NGTD -- Cont ceftriaxone X 14 days from negative culture (02/02) HEME: # Anemia -- Secondary to acute sickness and chronic alcoholism causing BM suppression -- Daily CBC -- Goal Hb > 7 ENDO: -- Goal BS < 180 -- Accucheck every 6 hours D/w RN and hospitalist. Time Spent With Patient Critical Care time: I spent a total of 35 minutes of critical care time on this patient's care today; this time is exclusive of procedural time.
[2022-02-07] MEDS: ALBUTEROL/IPRATROPIUM 3 ML AMPUL INH ×5 (08:41→22:29)
[2022-02-07] MEDS: BUDESONIDE 0.5 MG/2 ML NEB INH ×2 (08:41→19:02)
[2022-02-07] MEDS: REMDESIVIR 100 MG in SODIUM CHLORIDE 0.9% 230 ML 250 MG IV (10:53)
[2022-02-07] MEDS: DEXAMETHASONE 10 MG/ML VIAL 6 MG IV (10:55)
--- NOTE | 2022-02-07 12:39 | PM.PN.1 ---
Subjective Subjective Date Patient Seen: 02/07/22 Interval history: 62-year-old female with anxiety, rheumatoid arthritis, tobacco dependence, hypertension, hyperlipidemia, and alcohol dependence presently hospital day 7 admitted with COVID pneumonia, acute hypoxic respiratory failure requiring intubation/mechanical ventilation, septic shock, PAUL, and acute encephalopathy.? Additionally, she is found to have staph epi bacteremia, MSSA in the sputum and E coli UTI. Patient remains encephalopathic and unarousable off of sedatives. She is now off of Versed, fentanyl and Librium. She has also taken off of Precedex but S restarted at lower dose due to patient grimacing and becoming more tachycardic. It will take a while for the Librium to wear off. She is on minimal ventilatory support. Once more awake we can start weaning trial. CT showed right pleural effusion atelectasis versus pneumonia consolidation. Plan is for radiology to do ultrasound guided thoracentesis on Wednesday to rule out empyema. Exam Vital Signs (past 8 hours): - 02/07/22 05:00 02/07/22 05:01 02/07/22 05:01 Pulse Rate 86 86 Respiratory Rate 39 H 39 H Blood Pressure 125/60 Pulse Oximetry 95 95 Oxygen Delivery Method 02/07/22 05:19 02/07/22 05:19 02/07/22 05:00 Pulse Rate 92 H Respiratory Rate 30 H Blood Pressure 119/58 L Pulse Oximetry 92 Oxygen Delivery Method Mechanical Ventilation 02/07/22 05:00 02/07/22 06:00 02/07/22 06:00 Pulse Rate 86 Respiratory Rate 29 H Blood Pressure 114/56 L Pulse Oximetry 95 96 Oxygen Delivery Method Mechanical Ventilation 02/07/22 07:00 02/07/22 07:00 02/07/22 08:00 Pulse Rate 83 Respiratory Rate 30 H Blood Pressure 112/58 L 114/58 L Pulse Oximetry 94 Oxygen Delivery Method 02/07/22 08:00 02/07/22 09:00 02/07/22 09:00 Pulse Rate 84 109 H Respiratory Rate 37 H 27 H Blood Pressure 147/66 H Pulse Oximetry 97 93 Oxygen Delivery Method Fraction of Inspired Oxygen 35 SaO2/FiO2 Ratio 268 Oxygen Delivery Method Mechanical Ventilation Oxygen Flow Rate 35 Narrative Exam Narrative: General: Sedated on vent Lungs: Clear Abdomen: Soft Extremities: No distal edema Objective Labs Result Diagrams: 02/07/22 04:20 12/31/22 04:20 Labs: Laboratory Results - last 24 hr 02/07/22 02/07/22 02/07/22 04:20 04:20 04:20 WBC 26.2 H RBC 2.66 L Hgb 8.4 L Hct 25.6 L MCV 96.3 MCH 31.4 MCHC 32.6 RDW 14.8 Plt Count 481 H Neut % (Auto) Not Reportable Lymph % (Auto) Not Reportable [place] % (Auto) Not Reportable Eos % (Auto) Not Reportable Baso % (Auto) Not Reportable Lymph # (Auto) Not Reportable [place] # (Auto) Not Reportable Baso # (Auto) Not Reportable Total Counted 100 Seg Neutrophils % 87.0 H Band Neutrophils % 1.0 L Lymphocytes % (Manual) 7.0 L Atypical Lymphs % 2.0 H Monocytes % (Manual) 3.0 Neutrophils # (Manual) 02235 H RBC Morphology Normal morphology Sodium 138 Potassium 3.6 Chloride 104 Carbon Dioxide 29 BUN 42 H Creatinine 0.75 Estimated GFR > 60 BUN/Creatinine Ratio 56.0 H Glucose 184 H Calcium 8.2 L Phosphorus 3.2 Magnesium 1.8 C. difficile Tox (PCR) 02/07/22 05:26 WBC RBC Hgb Hct MCV MCH MCHC RDW Plt Count Neut % (Auto) Lymph % (Auto) [place] % (Auto) Eos % (Auto) Baso % (Auto) Lymph # (Auto) [place] # (Auto) Baso # (Auto) Total Counted Seg Neutrophils % Band Neutrophils % Lymphocytes % (Manual) Atypical Lymphs % Monocytes % (Manual) Neutrophils # (Manual) RBC Morphology Sodium Potassium Chloride Carbon Dioxide BUN Creatinine Estimated GFR BUN/Creatinine Ratio Glucose Calcium Phosphorus Magnesium C. difficile Tox (PCR) Negative for c. diff [facility] Medical History Alcohol dependence Anemia Anxiety Chronic back pain (~2013) COVID-19 virus infection Degenerative joint disease (DJD) of lumbar spine (~1975) Hyperlipidemia Hypertension Osteoarthritis (~2013) Pneumonia Rheumatoid arthritis (~2009) Scoliosis (~1975) Tobacco dependence Surgical History Anesthesia History of amputation of toe (~2018) History of incision and drainage (03/19/20) Status post left foot surgery (08/23/20) Family History Father Cancer Hypertension Hyperlipidemia Mother Hypertension Brother Testicular cancer Hypertension Brother Diabetes mellitus Hypertension Hyperlipidemia Social History household members: significant other and family Smoking Status: Current every day smoker Tobacco: How many years used: 40 quit status: quit date established (September 08 2020) second hand exposure: No alcohol intake: current substance use type: does not use Assessment & Plan Assessment & Plan narrative: 1. Acute hypoxic respiratory failure -continue ventilatory support coordinating with tele ICU physician -minimize sedation, currently on Precedex only -weaning trial once awake -ultrasound thoracentesis of right pleural effusion on Wednesday to rule out empyema -s/s insulin to keep glucose < 180 2. COVID pneumonia with possible superimposed bacterial pneumonia -continue steroid and remdesivir through 02/09/2022 to complete 10 day course (methylprednisolone switched back to dexamethasone by tele ICU) -doxycycline x 7 days through 02/11/2022 for MRSA in sputum -persistent elevated WBC noted and may represent stress demargination, steroid or empyema 3. E coli urinary infection, present on admission -complete 1 week course of Rocephin through 02/10/2022 4. Acute alcohol withdrawal and metabolic encephalopathy -continue delirium, managed with Precedex and Seroquel 25 mg bid 5. Septic shock, resolved -due to pneumonia, urinary infection 6. PAUL, present on admission, resolved 7. Tobacco dependence -nicotine patch 8. History of rheumatoid arthritis Tubes/lines: Right IJ - placed 01/31 PIV LFA- placed 02/04 Mari cath - placed 01/31 ETT- placed 01/31? FEN: Pivot 1.5 at 10 cc/hr--gasser machine operator has approved gradual titration up to a max of 40 cc/hour.? This will hopefully improve her nutritional status and low albumin state Code status Full Prophylaxis On heparin and famotidine Disposition ICU Time Spent With Patient Critical Care time: I spent a total of [> 30] minutes of critical care time on this patient's care today; this time is exclusive of procedural time. Time Spent With Patient Critical Care time: I spent a total of [] minutes of critical care time on this patient's care today; this time is exclusive of procedural time.
--- NOTE | 2022-02-07 13:25 | PC.NURSE ---
1130 - Patient repositioned. Inc of liquid stool. Hr 120s increasing to 130s during care. BP 155/71. Planning Supervisor notified of change in vitals. Patient opens eyes for brief periods of time, unable to follow commands. Order to restart precedex at 0.8.
[2022-02-07] MEDS: dexmedeTOMIDine in 0.9 % NaCL 400 MCG/100 ML PLAST..BAG 14.62 MCG IV ×2 (17:16→23:25)
--- NOTE | 2022-02-07 20:32 | PM.ICURNDS ---
- Date Patient Seen: 02/07/22 Time Patient Seen: 20:32 :: This patient was seen via real time interactive two-way audiovisual telecommunication. Note: Patient failed SAT due to tachypnea and HTN. Restarted back on precedex 0.7 mcg. On minimum vent settings. D/w RN at bedside.
[2022-02-08] VITALS (44 sets, daily range): BP systolic 111–146; BP diastolic 55–68; PULSE 91–117; RESP 18–38; TEMP 36.6–36.8; O2SAT 80–100
[2022-02-08] MEDS: DOXYCYCLINE 100 MG in SODIUM CHLORIDE 0.9% 100 ML IV ×2 (04:03→15:44)
[2022-02-08] MEDS: HEPARIN 5,000 UNIT/ML VIAL 5000 UNIT SUBCUT ×3 (05:42→21:34)
[2022-02-08] MEDS: dexmedeTOMIDine in 0.9 % NaCL 400 MCG/100 ML PLAST..BAG 12.793 MCG IV ×2 (06:33→13:39)
[2022-02-08 07:56] LABS: Add Manual Diff / Slide Review NO; Basophils Absolute Auto 0 /uL (0-100); Basophils Percent Auto 0.1 % (0-2); Eosinophils Absolute Auto 100 /uL (0-450); Eosinophils Percent Auto 0.6 % (2-4); Hemoglobin 8.7 g/dL (12.0-16.0); Lymphocytes Absolute Auto 2000 /uL (1100-4500); Mean Corpuscular HGB Conc 32.3 % (30-36); Mean Corpuscular Hemoglobin 31.5 PG (26-34); Mean Corpuscular Volume 97.7 fL (80-100); Monocytes Absolute Auto 1400 /uL (0-900); Monocytes Percent Auto 6.3 % (3-14); Neutrophils Absolute Auto 18400 /uL (1500-7000); Platelet Count 479 X10^3/uL (150-400); Red Blood Cell Count 2.76 X10^6/uL (4.0-5.2); White Blood Cell Count 21.9 X10^3/uL (4.5-11.0)
[2022-02-08] MEDS: ALBUTEROL/IPRATROPIUM 3 ML AMPUL INH ×5 (08:04→23:46)
[2022-02-08] MEDS: BUDESONIDE 0.5 MG/2 ML NEB INH ×2 (08:04→19:05)
[2022-02-08 08:11] LABS: BUN Creatinine Ratio 62.3 (6-22); Blood Urea Nitrogen 38 mg/dL (7-17); Calcium 8.5 mg/dL (8.4-10.2); Carbon Dioxide 28 mmol/L (22-32); Chloride 108 mmol/L (98-107); Estimated Glomerular Filt Rate > 60 mL/min (>60); Glucose 137 mg/dL (80-110); HEMOLYSIS 19 (0-50); Potassium 3.7 mmol/L (3.4-5.1); Sodium 142 mmol/L (137-145)
[2022-02-08] MEDS: cefTRIAXone 2,000 MG in SODIUM CHLORIDE 0.9% 100 ML 200 MG IV (08:15)
[2022-02-08] MEDS: DEXAMETHASONE 10 MG/ML VIAL 6 MG IV (08:15)
[2022-02-08] MEDS: QUETIAPINE 25 MG TABLET PO ×2 (08:16→21:34)
[2022-02-08] MEDS: VENLAFAXINE 37.5 MG TABLET PO ×2 (08:16→21:34)
[2022-02-08] MEDS: FAMOTIDINE 20 MG/2 ML VIAL IV ×2 (08:16→21:34)
[2022-02-08] MEDS: MULTIVITAMIN 1 TABLET 1 TAB PO (08:23)
[2022-02-08] MEDS: PREGABALIN 75 MG CAPSULE 150 MG PO ×2 (08:24→21:34)
[2022-02-08] MEDS: FOLIC ACID 1 MG TABLET PO (08:24)
[2022-02-08] MEDS: NICOTINE 14 PATCH 14 MG TOP (08:25)
[2022-02-08] MEDS: POTASSIUM CHLORIDE 20 MEQ/15 ML UDC TUBE ×2 (08:25→15:45)
[2022-02-08] MEDS: REMDESIVIR 100 MG in SODIUM CHLORIDE 0.9% 230 ML 250 MG IV (09:18)
--- NOTE | 2022-02-08 09:26 | PM.PN.EICU ---
Subjective Subjective IF CAMERA ACTIVATED, patient seen via real-time interactive audiovisual communication: Camera activated Date Patient Seen: 02/08/22 Consent obtained for tele-grizzlyman care: Yes Patient Location: ICU Provider location (State): [place] Other participants/roles: Bedside RN Interval history: Intuabted and sedated. ON precedex 0.7 mcg. Tracking but not following commands. Current Medications Current Medications Medications: Home Medications leflunomide 20 mg tablet 20 mg PO DAILY #90 tabs 12/04/20 [Rx Confirmed 01/30/22] colchicine 0.6 mg capsule See Rx Instructions .Route .COMPLEX #180 caps 12/31/20 [Rx Confirmed 01/30/22] atorvastatin 20 mg tablet 20 mg PO DAILY #90 tabs 08/20/21 [Rx Confirmed 01/30/22] hydrochlorothiazide 25 mg tablet 25 mg PO DAILY #90 tabs 08/20/21 [Rx Confirmed 01/30/22] metoprolol tartrate 50 mg tablet 50 mg PO BID #180 tabs 08/20/21 [Rx Confirmed 01/30/22] nortriptyline 50 mg capsule 50 mg PO DAILY #90 caps 08/20/21 [Rx Confirmed 01/30/22] pregabalin 150 mg capsule 150 mg PO BID #180 caps 08/20/21 [Rx Confirmed 01/30/22] venlafaxine 37.5 mg capsule,extended release 24 hr 37.5 mg PO 2XD 01/30/22 [History Confirmed 01/30/22] Visit Medications (administered) Generic Name Dose Route Start Last Admin Trade Name Freq PRN Reason Stop Dose Admin Albuterol 2.5 mg 01/30/22 16:37 02/05/22 01:38 Albuterol 2.5 Mg/3 Ml Neb (Adult) INH 2.5 mg [id number] PRN Administration Shortness Of Breath Albuterol/Ipratropium 3 ml 01/30/22 19:00 02/08/22 08:04 Albuterol/Ipratropium 3 Ml Ampul INH 3 ml [id number] MELVIN Administration Budesonide 0.5 mg 02/03/22 20:00 02/08/22 08:04 Budesonide 0.5 Mg/2 Ml Neb INH 0.5 mg RTBID MELVIN Administration Chlorhexidine Gluconate 15 ml 02/02/22 16:00 02/08/22 04:04 Chlorhexidine Gluconate 15 Ml Cup PO Not Given Q6H MELVIN Dexamethasone 6 mg 02/07/22 09:00 02/08/22 08:15 Dexamethasone 10 Mg/Ml Vial IV 02/10/22 09:01 6 mg DAILY MELVIN Administration Famotidine 20 mg 02/01/22 10:45 02/08/22 08:16 Famotidine 20 Mg/2 Ml Vial IV 20 mg BID MELVIN Administration Folic Acid 1 mg 01/31/22 09:00 02/08/22 08:24 Folic Acid 1 Mg Tablet PO 1 mg DAILY MELVIN Administration Heparin Sodium (Porcine) 5,000 unit 01/31/22 06:00 02/08/22 05:42 Heparin 5,000 Unit/Ml Vial SUBCUT 5,000 unit Q8HR MELVIN Administration Heparin Sodium (Porcine) 50 unit 02/02/22 00:45 02/08/22 08:25 Heparin Flush (Cl/Picc/Mid-Line) 50 Unit/5 Ml Syringe IV 50 unit BID MELVIN Administration NOREPINEPHRINE BITARTRATE/D5W 4 mg in 250 mls @ 30 mls/hr 01/31/22 07:09 02/01/22 02:48 Levophed IV 0 mcg/min TITRATE MELVIN 0 mls/hr Titration Protocol 8 MCG/MIN Remdesivir 100 mg/ Sodium 250 mls @ 250 mls/hr 02/01/22 11:00 02/08/22 09:18 Chloride IV 02/09/22 09:59 250 mls/hr DAILY MELVIN Administration dexmedeTOMIDine in 0.9 % NaCL 400 mcg in 100 mls @ 3.655 mls/hr 02/02/22 13:00 02/08/22 06:33 Precedex IV 0.7 mcg/kg/hr TITRATE MELVIN 12.793 mls/hr Administration Protocol 0.2 MCG/KG/HR Ceftriaxone Sodium 2,000 mg/ 100 mls @ 200 mls/hr 02/03/22 08:00 02/08/22 08:15 Sodium Chloride IV 02/10/22 07:59 200 mls/hr Q24H MELVIN Administration Doxycycline Hyclate 100 mg/ 100 mls @ 100 mls/hr 02/04/22 15:30 02/08/22 05:05 Sodium Chloride IV 02/11/22 15:29 Infused Q12H MELVIN Infusion Loperamide HCl 4 mg 02/03/22 03:17 02/03/22 03:51 Loperamide 2 Mg Capsule PO 4 mg PRN PRN Administration Diarrhea Multivitamins 1 tab 01/31/22 09:00 02/08/22 08:23 Multivitamin 1 Tablet PO 1 tab DAILY MELVIN Administration Nicotine 14 mg 01/31/22 09:00 02/08/22 08:25 Nicotine 14 Patch TOP 14 mg DAILY MELVIN Administration Potassium Chloride 20 meq 02/06/22 10:12 02/08/22 08:25 Potassium Chloride 20 Meq/15 Ml Udc TUBE 20 meq BIDWM MELVIN Administration Pregabalin 150 mg 02/05/22 21:00 02/08/22 08:24 Pregabalin 75 Mg Capsule PO 150 mg BID MELVIN Administration Quetiapine Fumarate 25 mg 02/04/22 10:00 02/08/22 08:16 Quetiapine 25 Mg Tablet PO 25 mg BID MELVIN Administration Venlafaxine HCl 37.5 mg 02/02/22 21:00 02/08/22 08:16 Venlafaxine 37.5 Mg Tablet PO 37.5 mg BID MELVIN Administration Objective Ventilator Parameters: Ventilator Settings Pressure Control 15 FiO2 35 RT Vent Frequency 18 Ventilator Tidal Volume 370 Exhaled Vt/kg IBW 6 Positive End Expiratory 5 Pressure Ventilator Pressure Support 2 Inspiratory Phase Time 0.7 I:E Ratio 1:3.7 Patient Position HOB >= 30 degrees Labs Result Diagrams: 02/08/22 07:00 02/08/22 07:00 Labs: Laboratory Results - last 24 hr 02/08/22 02/08/22 07:00 07:00 WBC 21.9 H RBC 2.76 L Hgb 8.7 L Hct 27.0 L MCV 97.7 MCH 31.5 MCHC 32.3 RDW 15.0 H Plt Count 479 H Neut % (Auto) 84.0 H Lymph % (Auto) 9.0 L [place] % (Auto) 6.3 Eos % (Auto) 0.6 L Baso % (Auto) 0.1 Neut # (Auto) 50085 H Lymph # (Auto) 2000 [place] # (Auto) 1400 H Eos # (Auto) 100 Baso # (Auto) 0 Sodium 142 Potassium 3.7 Chloride 108 H Carbon Dioxide 28 BUN 38 H Creatinine 0.61 Estimated GFR > 60 BUN/Creatinine Ratio 62.3 H Glucose 137 H Calcium 8.5 Exam Vital Signs (past 8 hours): - 02/08/22 02:00 02/08/22 02:00 02/08/22 03:00 Temperature Pulse Rate 92 H 103 H Respiratory Rate 20 21 Blood Pressure 131/60 Pulse Oximetry 100 93 Oxygen Delivery Method Fraction of Inspired Oxygen 02/08/22 03:00 02/08/22 04:00 02/08/22 04:00 Temperature 98.2 F Pulse Rate 101 H Respiratory Rate 21 Blood Pressure 132/60 127/60 Pulse Oximetry 97 Oxygen Delivery Method Fraction of Inspired Oxygen 02/08/22 04:09 02/08/22 05:00 02/08/22 05:00 Temperature Pulse Rate 101 H Respiratory Rate 23 Blood Pressure Pulse Oximetry 96 96 Oxygen Delivery Method Mechanical Ventilation Mechanical Ventilation Fraction of Inspired Oxygen 02/08/22 05:00 02/08/22 05:00 02/08/22 05:05 Temperature Pulse Rate 98 H 99 H Respiratory Rate 24 19 Blood Pressure 126/59 L Pulse Oximetry 97 97 Oxygen Delivery Method Fraction of Inspired Oxygen 02/08/22 06:00 02/08/22 06:00 02/08/22 06:07 Temperature Pulse Rate 94 H 96 H Respiratory Rate 19 21 Blood Pressure 122/58 L Pulse Oximetry 96 97 Oxygen Delivery Method Fraction of Inspired Oxygen 02/08/22 07:00 02/08/22 07:00 02/08/22 08:21 Temperature Pulse Rate 99 H 100 H Respiratory Rate 20 19 Blood Pressure 125/60 Pulse Oximetry 94 95 Oxygen Delivery Method Fraction of Inspired Oxygen 35 02/08/22 08:00 02/08/22 08:00 Temperature Pulse Rate 101 H Respiratory Rate 32 H Blood Pressure 117/58 L Pulse Oximetry 92 Oxygen Delivery Method Fraction of Inspired Oxygen Fraction of Inspired Oxygen 35 SaO2/FiO2 Ratio 271 Oxygen Delivery Method Mechanical Ventilation Oxygen Flow Rate 35 Narrative Exam Narrative: Intubated and sedated Assessment & Plan Assessment & Plan narrative: NEURO: # Acute encephalopathy -- Secondary delirium and sedatives -- Avoid sedatives -- On precedex gtt -- Daily SAT -- RASS goal -1 to 0 -- Seek early mobility # Alcohol abuse -- On sedation as above -- On thiamine, folic acid, and MTV -- On seizure precaution RESP: # Acute hypoxemia respiratory failure -- Intubated and sedated -- Secondary to PNA -- On nontoxic level of FIO2 -- On abx as below -- Daily SAT and SBT -- HOB elevation -- Aspiration precaution -- Goal SpO2 > 88% # Right pleural effusion -- Plan for thoracentesis this afternoon -- Follow up pleural fluid analysis -- On abx as below ID: # COVID PNA -- On decadron 6 mg X 10 days -- On remdesivir therapy -- On contact, airborne, and droplet precautions # Severe sepsis -- Secondary to E. coli, MRSA PNA, staph bacteremia -- On ceftriaxone and doxycyline X 7 days HEME: # Anemia -- Secondary to acute sickness and chronic alcoholism causing BM suppression -- Daily CBC -- Goal Hb > 7 ENDO: -- Goal BS < 180 -- Accucheck every 6 hours D/w RN at bedside. Time Spent With Patient Critical Care time: I spent a total of 34 minutes of critical care time on this patient's care today; this time is exclusive of procedural time.
[2022-02-08] MEDS: CHLORHEXIDINE GLUCONATE 15 ML CUP PO ×3 (10:07→21:34)
[2022-02-08] MEDS: LORazepam 2 MG/ML INJ IV (12:00)
--- NOTE | 2022-02-08 12:40 | PM.PN.1 ---
Subjective Subjective Date Patient Seen: 02/08/22 Interval history: Patient is currently sedated, but overall more alert, she is tracking, not yet following commands. She remains on precedex infusion. Bedside ultrasound today showed loculated left pleural effusion, will discuss with general surgery about possible chest tube or if will need thoracentesis to diagnose empyema with transfer for cardiothoracic surgery. Exam Vital Signs (past 8 hours): - 02/08/22 05:00 02/08/22 05:00 02/08/22 05:00 Pulse Rate Respiratory Rate Blood Pressure 126/59 L Pulse Oximetry 96 Oxygen Delivery Method Mechanical Ventilation Mechanical Ventilation Fraction of Inspired Oxygen 02/08/22 05:00 02/08/22 05:05 02/08/22 06:00 Pulse Rate 98 H 99 H Respiratory Rate 24 19 Blood Pressure 122/58 L Pulse Oximetry 97 97 Oxygen Delivery Method Fraction of Inspired Oxygen 02/08/22 06:00 02/08/22 06:07 02/08/22 07:00 Pulse Rate 94 H 96 H Respiratory Rate 19 21 Blood Pressure 125/60 Pulse Oximetry 96 97 Oxygen Delivery Method Fraction of Inspired Oxygen 02/08/22 07:00 02/08/22 08:21 02/08/22 08:00 Pulse Rate 99 H 100 H Respiratory Rate 20 19 Blood Pressure 117/58 L Pulse Oximetry 94 95 Oxygen Delivery Method Fraction of Inspired Oxygen 35 02/08/22 08:00 02/08/22 09:00 02/08/22 09:01 Pulse Rate 101 H 115 H Respiratory Rate 32 H 25 H Blood Pressure 132/62 Pulse Oximetry 92 100 Oxygen Delivery Method Fraction of Inspired Oxygen 02/08/22 09:01 02/08/22 10:00 02/08/22 10:00 Pulse Rate 117 H 104 H Respiratory Rate 25 H 28 H Blood Pressure 130/61 Pulse Oximetry 100 98 Oxygen Delivery Method Fraction of Inspired Oxygen 02/08/22 11:09 02/08/22 11:00 02/08/22 11:01 Pulse Rate 110 H 108 H Respiratory Rate 20 30 H Blood Pressure 139/62 Pulse Oximetry 99 98 Oxygen Delivery Method Fraction of Inspired Oxygen 35 02/08/22 11:01 02/08/22 12:00 02/08/22 12:01 Pulse Rate 109 H 109 H Respiratory Rate 34 H 30 H Blood Pressure 146/55 H Pulse Oximetry 97 95 Oxygen Delivery Method Fraction of Inspired Oxygen 02/08/22 12:01 Pulse Rate 108 H Respiratory Rate 21 Blood Pressure Pulse Oximetry 80 L Oxygen Delivery Method Fraction of Inspired Oxygen Fraction of Inspired Oxygen 35 SaO2/FiO2 Ratio 282 Oxygen Delivery Method Mechanical Ventilation Oxygen Flow Rate 35 Narrative Exam Narrative: GEN:? Ill-appearing middle-aged female, intubated and sedated CV: tachycardic, regular no m/r/g. PULM: RLL markedly decreased breath sounds, coarse throughout the remainder of lung [place]. ABD: Soft, NT/ND, BT present in all 4 quadrants, no organomegaly or masses EXTR: warm, poor skin both legs with dry plantar feet, left third toe amputation NEURO:? Intubated/sedated, does not follow commands, tracks with eyes and opens spontaneously today. Objective Labs Result Diagrams: 02/08/22 07:00 02/08/22 07:00 Labs: Laboratory Results - last 24 hr 02/08/22 02/08/22 07:00 07:00 WBC 21.9 H RBC 2.76 L Hgb 8.7 L Hct 27.0 L MCV 97.7 MCH 31.5 MCHC 32.3 RDW 15.0 H Plt Count 479 H Neut % (Auto) 84.0 H Lymph % (Auto) 9.[address] [place] % (Auto) 6.3 Eos % (Auto) 0.6 L Baso % (Auto) 0.1 Neut # (Auto) 83962 H Lymph # (Auto) 2000 [place] # (Auto) 1400 H Eos # (Auto) 100 Baso # (Auto) 0 Sodium 142 Potassium 3.7 Chloride 108 H Carbon Dioxide 28 BUN 38 H Creatinine 0.61 Estimated GFR > 60 BUN/Creatinine Ratio 62.3 H Glucose 137 H Calcium 8.5 PFSH Medical History Alcohol dependence Anemia Anxiety Chronic back pain (~2013) COVID-19 virus infection Degenerative joint disease (DJD) of lumbar spine (~1975) Hyperlipidemia Hypertension Osteoarthritis (~2013) Pneumonia Rheumatoid arthritis (~2009) Scoliosis (~1975) Tobacco dependence Surgical History Anesthesia History of amputation of toe (~2018) History of incision and drainage (03/19/20) Status post left foot surgery (08/23/20) Family History Father Cancer Hypertension Hyperlipidemia Mother Hypertension Brother Testicular cancer Hypertension Brother Diabetes mellitus Hypertension Hyperlipidemia Social History household members: significant other and family Smoking Status: Current every day smoker Tobacco: How many years used: 40 quit status: quit date established (September 08 2020) second hand exposure: No alcohol intake: current substance use type: does not use Assessment & Plan Assessment & Plan narrative: 1. Acute hypoxic respiratory failure -continue ventilatory support coordinating with tele ICU physician -minimize sedation, currently on Precedex only, encephalopathy does appear to be improving in setting of EtOH withdrawal. -weaning trial once awake -ultrasound thoracentesis of right pleural effusion on Wednesday to rule out empyema -s/s insulin to keep glucose < 180 2. COVID pneumonia with possible superimposed bacterial pneumonia and probable MRSA empyema. -continue steroid and remdesivir through 02/09/2022 to complete 10 day course (methylprednisolone switched back to dexamethasone by tele ICU) -doxycycline and ceftriaxone IV x 7 days through 02/11/2022 for MRSA in sputum -persistent elevated WBC noted and may represent stress demargination, steroid or empyema -bedside ultrasound 02/08/22 with loculated pleural effusion, will discuss with general surgery about possible chest tube, though given probable need for thoracic surgery with empyema an alternative may be to confirm with thoracentesis dx of empyema and then transfer for higher level of care and thoracic surgery consultation, though this may be exceedingly difficult given 3. E coli urinary infection, present on admission -complete 1 week course of Rocephin through 02/10/2022 4. Acute alcohol withdrawal and metabolic encephalopathy -continue delirium, managed with Precedex and Seroquel 25 mg bid 5. Septic shock, resolved -due to pneumonia, urinary infection 6. PAUL, present on admission, resolved 7. Tobacco dependence -nicotine patch 8. History of rheumatoid arthritis Tubes/lines: Right IJ - placed 01/31 PIV LFA- placed 02/04 Mari cath - placed 01/31 ETT- placed 01/31? FEN: Pivot 1.5 at 10 cc/hr--transformer repairer has approved gradual titration up to a max of 40 cc/hour.? This will hopefully improve her nutritional status and low albumin state Code status Full Prophylaxis On heparin and famotidine Disposition ICU Time Spent With Patient Critical Care time: 45 minutes I spent a total of [> 30] minutes of critical care time on this patient's care today; this time is exclusive of procedural time. Time Spent With Patient Critical Care time: I spent a total of [] minutes of critical care time on this patient's care today; this time is exclusive of procedural time.
[2022-02-08] MEDS: dexmedeTOMIDine in 0.9 % NaCL 400 MCG/100 ML PLAST..BAG 18.275 MCG IV (20:22)
--- NOTE | 2022-02-08 20:34 | PM.ICURNDS ---
- :: This patient was seen via real time interactive two-way audiovisual telecommunication. remains on minimal vent settings, pending diagnostic thoracentesis tomorrow, SAT/SBT in am
[2022-02-08 20:57] LABS: BUN Creatinine Ratio 49.3 (6-22); Blood Urea Nitrogen 36 mg/dL (7-17); Calcium 8.4 mg/dL (8.4-10.2); Carbon Dioxide 29 mmol/L (22-32); Chloride 110 mmol/L (98-107); Estimated Glomerular Filt Rate > 60 mL/min (>60); Glucose 130 mg/dL (80-110); HEMOLYSIS < 15 (0-50); Phosphorous 3.5 mg/dL (2.8-4.1); Potassium 4.1 mmol/L (3.4-5.1); Sodium 144 mmol/L (137-145)
--- NOTE | 2022-02-08 22:00 | PC.NURSE ---
Patient heart rhythm sinus rhythm with multiple PAC's and runs of SVT. Dr. Ernst notified and new orders noted, Dr. Almaraz intensive care provider of change in rhythm. New orders noted, labs drawn and sent and EKG done. All results called to Dr. Cherry notified of above no further orders noted. Significant other at bedside with patient and everything explained to him.
[2022-02-09] VITALS (35 sets, daily range): BP systolic 105–146; BP diastolic 53–83; PULSE 80–123; RESP 16–38; TEMP 36.5–36.7; O2SAT 85–100
[2022-02-09] MEDS: dexmedeTOMIDine in 0.9 % NaCL 400 MCG/100 ML PLAST..BAG 18.275 MCG IV ×3 (01:11→19:27)
[2022-02-09] MEDS: DOXYCYCLINE 100 MG in SODIUM CHLORIDE 0.9% 100 ML IV ×2 (03:06→14:44)
[2022-02-09] MEDS: CHLORHEXIDINE GLUCONATE 15 ML CUP PO ×4 (04:12→20:55)
[2022-02-09 04:54] LABS: Hemoglobin 7.7 g/dL (12.0-16.0); Mean Corpuscular HGB Conc 31.9 % (30-36); Mean Corpuscular Hemoglobin 31.5 PG (26-34); Mean Corpuscular Volume 98.7 fL (80-100); Platelet Count 484 X10^3/uL (150-400); Red Blood Cell Count 2.43 X10^6/uL (4.0-5.2); Red Cell Distribution Width 14.8 % (11.6-14.8); White Blood Cell Count 22.2 X10^3/uL (4.5-11.0)
[2022-02-09 04:56] LABS: Add Manual Diff / Slide Review YES
[2022-02-09 04:59] LABS: Alanine Aminotransferase 38 IU/L (<35); Albumin 2.4 g/dL (3.5-5.0); Albumin Globulin Ratio 0.8 (1.0-2.8); Alkaline Phosphatase 88 U/L (38-126); Aspartate Aminotransferase 25 IU/L (14-36); Bilirubin Total 0.3 mg/dL (0.2-1.3); Blood Urea Nitrogen 33 mg/dL (7-17); Calcium 7.8 mg/dL (8.4-10.2); Carbon Dioxide 26 mmol/L (22-32); Chloride 112 mmol/L (98-107); Estimated Glomerular Filt Rate > 60 mL/min (>60); Globulin 2.9 g/dL (1.7-4.1); Glucose 127 mg/dL (80-110); HEMOLYSIS < 15 (0-50); Magnesium 1.8 mg/dL (1.6-2.3); Potassium 3.7 mmol/L (3.4-5.1); Sodium 142 mmol/L (137-145); Total Protein 5.3 g/dL (6.3-8.2)
[2022-02-09] MEDS: HEPARIN 5,000 UNIT/ML VIAL 5000 UNIT SUBCUT ×3 (05:52→20:54)
[2022-02-09 06:58] LABS: Anisocytosis 1+; Neutrophils Absolute Manual 18870 /uL (3000-5900); Total Cells Counted 100
[2022-02-09] MEDS: BUDESONIDE 0.5 MG/2 ML NEB INH ×2 (07:06→18:13)
[2022-02-09] MEDS: ALBUTEROL/IPRATROPIUM 3 ML AMPUL INH ×5 (07:06→23:13)
--- NOTE | 2022-02-09 08:00 | PM.PN.1 ---
Subjective Subjective Date Patient Seen: 02/09/22 Time Patient Seen: 08:07 Interval history: Patient is currently sedated, needed to increase precedex overnight due to increased discomfort overnight. Pending surgery consultation for possible chest tube, also pending possible transfer for cardiothoracic surgery. Exam Vital Signs (past 8 hours): - 02/09/22 01:00 02/09/22 01:00 02/09/22 01:00 Temperature Pulse Rate Respiratory Rate Blood Pressure 141/66 H Pulse Oximetry 94 Oxygen Delivery Method Mechanical Ventilation Mechanical Ventilation Fraction of Inspired Oxygen 02/09/22 01:00 02/09/22 01:36 02/09/22 02:00 Temperature Pulse Rate 96 H 96 H 102 H Respiratory Rate 25 H 22 30 H Blood Pressure Pulse Oximetry 94 98 85 L Oxygen Delivery Method Fraction of Inspired Oxygen 02/09/22 02:00 02/09/22 02:55 02/09/22 03:00 Temperature Pulse Rate 100 H Respiratory Rate 29 H Blood Pressure 146/72 H 120/56 L Pulse Oximetry 99 Oxygen Delivery Method Fraction of Inspired Oxygen 02/09/22 03:00 02/09/22 03:13 02/09/22 05:00 Temperature Pulse Rate 97 H 101 H Respiratory Rate 27 H 20 Blood Pressure Pulse Oximetry 100 97 97 Oxygen Delivery Method Mechanical Ventilation Fraction of Inspired Oxygen 02/09/22 05:00 02/09/22 04:00 02/09/22 04:00 Temperature 98.1 F Pulse Rate 96 H Respiratory Rate 23 Blood Pressure 120/56 L Pulse Oximetry 99 Oxygen Delivery Method Mechanical Ventilation Fraction of Inspired Oxygen 02/09/22 05:00 02/09/22 05:00 02/09/22 06:00 Temperature Pulse Rate 113 H Respiratory Rate 25 H Blood Pressure 127/78 135/60 Pulse Oximetry 99 Oxygen Delivery Method Fraction of Inspired Oxygen 02/09/22 06:00 02/09/22 06:55 02/09/22 07:21 Temperature Pulse Rate 98 H 106 H 91 H Respiratory Rate 35 H 29 H 18 Blood Pressure Pulse Oximetry 98 99 100 Oxygen Delivery Method Fraction of Inspired Oxygen 35 Fraction of Inspired Oxygen 35 SaO2/FiO2 Ratio 285 Oxygen Delivery Method Mechanical Ventilation Oxygen Flow Rate 35 Narrative Exam Narrative: GEN:? Ill-appearing middle-aged female, intubated and sedated CV: tachycardic, regular no m/r/g. PULM: RLL markedly decreased breath sounds, coarse throughout the remainder of lung [place]. ABD: Soft, NT, mild distension EXTR: warm, poor skin both legs with dry plantar feet, left third toe amputation NEURO:? Intubated/sedated, does not follow commands, no eye opening yet today but on increased sedation. Objective Labs Result Diagrams: 02/09/22 04:30 02/09/22 04:30 Labs: Laboratory Results - last 24 hr 02/08/22 02/08/22 02/08/22 07:00 07:00 20:08 WBC 21.9 H RBC 2.76 L Hgb 8.7 L Hct 27.0 L MCV 97.7 MCH 31.5 MCHC 32.3 RDW 15.0 H Plt Count 479 H Neut % (Auto) 84.0 H Lymph % (Auto) 9.0 L [place] % (Auto) 6.3 Eos % (Auto) 0.6 L Baso % (Auto) 0.1 Neut # (Auto) 11813 H Lymph # (Auto) 2000 [place] # (Auto) 1400 H Eos # (Auto) 100 Baso # (Auto) 0 Total Counted Seg Neutrophils % Band Neutrophils % Lymphocytes % (Manual) Monocytes % (Manual) Basophils % (Manual) Neutrophils # (Manual) RBC Morphology Anisocytosis Sodium 142 144 Potassium 3.7 4.1 Chloride 108 H 110 H Carbon Dioxide 28 29 BUN 38 H 36 H Creatinine 0.61 0.73 Estimated GFR > 60 > 60 BUN/Creatinine Ratio 62.3 H 49.3 H Glucose 137 H 130 H Calcium 8.5 8.4 Phosphorus 3.5 Magnesium 2.0 Total Bilirubin AST ALT Alkaline Phosphatase Total Protein Albumin Globulin Albumin/Globulin Ratio 02/09/22 02/09/22 04:30 04:30 WBC 22.2 H RBC 2.43 L Hgb 7.7 L Hct 24.0 L MCV 98.7 MCH 31.5 MCHC 31.9 RDW 14.8 Plt Count 484 H Neut % (Auto) Not Reportable Lymph % (Auto) Not Reportable [place] % (Auto) Not Reportable Eos % (Auto) Not Reportable Baso % (Auto) Not Reportable Neut # (Auto) Lymph # (Auto) Not Reportable [place] # (Auto) Not Reportable Eos # (Auto) Baso # (Auto) Not Reportable Total Counted 100 Seg Neutrophils % 82.0 H Band Neutrophils % 3.0 Lymphocytes % (Manual) 10.0 L Monocytes % (Manual) 4.0 Basophils % (Manual) 1.0 Neutrophils # (Manual) 67573 H RBC Morphology See below Anisocytosis 1+ H Sodium 142 Potassium 3.7 Chloride 112 H Carbon Dioxide 26 BUN 33 H Creatinine 0.66 Estimated GFR > 60 BUN/Creatinine Ratio 50.0 H Glucose 127 H Calcium 7.8 L Phosphorus Magnesium 1.8 Total Bilirubin 0.3 AST 25 ALT 38 H Alkaline Phosphatase 88 Total Protein 5.3 L Albumin 2.4 L Globulin 2.9 Albumin/Globulin Ratio 0.8 L [facility] Medical History Alcohol dependence Anemia Anxiety Chronic back pain (~2013) COVID-19 virus infection Degenerative joint disease (DJD) of lumbar spine (~1975) Hyperlipidemia Hypertension Osteoarthritis (~2013) Pneumonia Rheumatoid arthritis (~2009) Scoliosis (~1975) Tobacco dependence Surgical History Anesthesia History of amputation of toe (~2018) History of incision and drainage (03/19/20) Status post left foot surgery (08/23/20) Family History Father Cancer Hypertension Hyperlipidemia Mother Hypertension Brother Testicular cancer Hypertension Brother Diabetes mellitus Hypertension Hyperlipidemia Social History household members: significant other and family Smoking Status: Current every day smoker Tobacco: How many years used: 40 quit status: quit date established (September 08 2020) second hand exposure: No alcohol intake: current substance use type: does not use Assessment & Plan Assessment & Plan narrative: 1. Acute hypoxic respiratory failure -continue ventilatory support coordinating with tele ICU physician -minimize sedation, currently on Precedex only, encephalopathy does appear to be improving in setting of EtOH withdrawal. -weaning trials once awake -ultrasound thoracentesis of right pleural effusion on 02/08 consistent with loculated pleural effusion, general surgery consultation for chest tube placement. 2. COVID pneumonia with possible superimposed bacterial pneumonia and probable MRSA empyema. -continue steroid and remdesivir through 02/09/2022 to complete 10 day course (methylprednisolone switched back to dexamethasone by tele ICU) -doxycycline and ceftriaxone IV x 7 days through 02/11/2022 for MRSA in sputum -persistent elevated WBC noted and may represent stress demargination, steroid or empyema, favor empyema with loculated appearance on ultrasound. -bedside ultrasound 02/08/22 with loculated pleural effusion, discussed with general surgery about possible chest tube, will evaluate hopefully later today as she has been stable on the ventilator thus far. Also attempted transfer for cardiothoracic surgery however there are no current available beds. 3. E coli urinary infection, present on admission -complete 1 week course of Rocephin through 02/10/2022 4. Acute alcohol withdrawal and metabolic encephalopathy -continued delirium, managed with Precedex and Seroquel 25 mg bid initially reduce to 25 mg nightly today. -had been difficult to control initially with multiple sedatives trialed including propfol which caused hypertriglyceridemia. -appreciate tele-progressive care unit registered nurse consultation. 5. Septic shock, resolved -due to pneumonia (secondary to MSSA and MRSA based on sputum cultures, urinary infection with E. coli). -prior cultures staph epidermidis blood culture - likely contaminant 6. PAUL, present on admission, resolved 7. Tobacco dependence -nicotine patch 8. History of rheumatoid arthritis Tubes/lines: Right IJ - placed 01/31 PIV LFA- placed 02/04 Mari cath - placed 01/31 ETT- placed 01/31? FEN: Pivot 1.5 at 10 cc/hr--progressive care unit registered nurse has approved gradual titration up to a max of 40 cc/hour.? This will hopefully improve her nutritional status and low albumin state Code status Full Prophylaxis On heparin and famotidine Disposition ICU Time Spent With Patient Critical Care time: 35 minutes I spent a total of [> 30] minutes of critical care time on this patient's care today; this time is exclusive of procedural time. Time Spent With Patient Critical Care time: I spent a total of [] minutes of critical care time on this patient's care today; this time is exclusive of procedural time.
--- NOTE | 2022-02-09 09:00 | DI.RAD.S_ITS ---
PROCEDURE: XR CHEST 1V INDICATIONS: follow up pleural effusion TECHNIQUE: One view of the chest was acquired. COMPARISON: [facility], CR, XR CHEST 1V, 02/04/2022, 16:26. [facility], CT, CT CHEST WO CON, 02/06/2022, 10:56. FINDINGS: No change in right pleural effusion. No pleural effusion on the left. Bilateral interstitial opacities have improved. Heart size unchanged. Appropriate position of endotracheal and enteric tubes. Right IJ central line is unchanged. IMPRESSION: No significant change in size of right pleural effusion from 02/06/[address] No significant change from preliminary report. Dictated by: Vignesh Parrish M.D. on 02/09/2022 at 9:15 Approved by: Vignesh Parrish M.D. on 02/09/2022 at 9:17
--- NOTE | 2022-02-09 09:21 | PM.PN.EICU ---
Subjective Subjective IF CAMERA ACTIVATED, patient seen via real-time interactive audiovisual communication: Camera activated Consent obtained for tele-car cleaning supervisor care: Yes Patient Location: ICU Provider location (State): [place] Other participants/roles: Bedside RN Interval history: Failed SAT due to agitation. ON precedex gtt. Pending surgery consult for chest tube placement. Current Medications Current Medications Medications: Home Medications leflunomide 20 mg tablet 20 mg PO DAILY #90 tabs 12/04/20 [Rx Confirmed 01/30/22] colchicine 0.6 mg capsule See Rx Instructions .Route .COMPLEX #180 caps 12/31/20 [Rx Confirmed 01/30/22] atorvastatin 20 mg tablet 20 mg PO DAILY #90 tabs 08/20/21 [Rx Confirmed 01/30/22] hydrochlorothiazide 25 mg tablet 25 mg PO DAILY #90 tabs 08/20/21 [Rx Confirmed 01/30/22] metoprolol tartrate 50 mg tablet 50 mg PO BID #180 tabs 08/20/21 [Rx Confirmed 01/30/22] nortriptyline 50 mg capsule 50 mg PO DAILY #90 caps 08/20/21 [Rx Confirmed 01/30/22] pregabalin 150 mg capsule 150 mg PO BID #180 caps 08/20/21 [Rx Confirmed 01/30/22] venlafaxine 37.5 mg capsule,extended release 24 hr 37.5 mg PO 2XD 01/30/22 [History Confirmed 01/30/22] Visit Medications (administered) Generic Name Dose Route Start Last Admin Trade Name Freq PRN Reason Stop Dose Admin Albuterol 2.5 mg 01/30/22 16:37 02/05/22 01:38 Albuterol 2.5 Mg/3 Ml Neb (Adult) INH 2.5 mg [id number] PRN Administration Shortness Of Breath Albuterol/Ipratropium 3 ml 01/30/22 19:00 02/09/22 07:06 Albuterol/Ipratropium 3 Ml Ampul INH 3 ml [id number] MELVIN Administration Budesonide 0.5 mg 02/03/22 20:00 02/09/22 07:06 Budesonide 0.5 Mg/2 Ml Neb INH 0.5 mg RTBID MELVIN Administration Chlorhexidine Gluconate 15 ml 02/02/22 16:00 02/09/22 04:12 Chlorhexidine Gluconate 15 Ml Cup PO 15 ml Q6H MELVIN Administration Dexamethasone 6 mg 02/07/22 09:00 02/08/22 08:15 Dexamethasone 10 Mg/Ml Vial IV 02/10/22 09:01 6 mg DAILY MELVIN Administration Famotidine 20 mg 02/01/22 10:45 02/08/22 21:34 Famotidine 20 Mg/2 Ml Vial IV 20 mg BID MELVIN Administration Folic Acid 1 mg 01/31/22 09:00 02/08/22 08:24 Folic Acid 1 Mg Tablet PO 1 mg DAILY MELVIN Administration Heparin Sodium (Porcine) 5,000 unit 01/31/22 06:00 02/09/22 05:52 Heparin 5,000 Unit/Ml Vial SUBCUT 5,000 unit Q8HR MELVIN Administration Heparin Sodium (Porcine) 50 unit 02/02/22 00:45 02/08/22 21:34 Heparin Flush (Cl/Picc/Mid-Line) 50 Unit/5 Ml Syringe IV 50 unit BID MELVIN Administration NOREPINEPHRINE BITARTRATE/D5W 4 mg in 250 mls @ 30 mls/hr 01/31/22 07:09 02/01/22 02:48 Levophed IV 0 mcg/min TITRATE MELVIN 0 mls/hr Titration Protocol 8 MCG/MIN Remdesivir 100 mg/ Sodium 250 mls @ 250 mls/hr 02/01/22 11:00 02/08/22 14:03 Chloride IV 02/09/22 09:59 Infused DAILY MELVIN Infusion dexmedeTOMIDine in 0.9 % NaCL 400 mcg in 100 mls @ 3.655 mls/hr 02/02/22 13:00 02/09/22 05:53 Precedex IV 1 mcg/kg/hr TITRATE MELVIN 18.275 mls/hr Administration Protocol 0.2 MCG/KG/HR Ceftriaxone Sodium 2,000 mg/ 100 mls @ 200 mls/hr 02/03/22 08:00 02/08/22 14:04 Sodium Chloride IV 02/10/22 07:59 Infused Q24H MELVIN Infusion Doxycycline Hyclate 100 mg/ 100 mls @ 100 mls/hr 02/04/22 15:30 02/09/22 04:20 Sodium Chloride IV 02/11/22 15:29 Infused Q12H MELVIN Infusion Loperamide HCl 4 mg 02/03/22 03:17 02/03/22 03:51 Loperamide 2 Mg Capsule PO 4 mg PRN PRN Administration Diarrhea Multivitamins 1 tab 01/31/22 09:00 02/08/22 08:23 Multivitamin 1 Tablet PO 1 tab DAILY MELVIN Administration Nicotine 14 mg 01/31/22 09:00 02/08/22 08:25 Nicotine 14 Patch TOP 14 mg DAILY MELVIN Administration Potassium Chloride 20 meq 02/06/22 10:12 02/08/22 15:45 Potassium Chloride 20 Meq/15 Ml Udc TUBE 20 meq BIDWM MELVIN Administration Pregabalin 150 mg 02/05/22 21:00 02/08/22 21:34 Pregabalin 75 Mg Capsule PO 150 mg BID MELVIN Administration Venlafaxine HCl 37.5 mg 02/02/22 21:00 02/08/22 21:34 Venlafaxine 37.5 Mg Tablet PO 37.5 mg BID MELVIN Administration Objective Ventilator Parameters: Ventilator Settings Pressure Control 15 FiO2 35 RT Vent Frequency 16 Ventilator Tidal Volume 370 Exhaled Vt/kg IBW 6 Positive End Expiratory 5 Pressure Ventilator Pressure Support 2 Inspiratory Phase Time 0.75 I:E Ratio 1:3.1 Patient Position HOB >= 30 degrees Labs Result Diagrams: 02/09/22 04:30 02/09/22 04:30 Labs: Laboratory Results - last 24 hr 02/08/22 02/09/22 02/09/22 20:08 04:30 04:30 WBC 22.2 H RBC 2.43 L Hgb 7.7 L Hct 24.0 L MCV 98.7 MCH 31.5 MCHC 31.9 RDW 14.8 Plt Count 484 H Neut % (Auto) Not Reportable Lymph % (Auto) Not Reportable [place] % (Auto) Not Reportable Eos % (Auto) Not Reportable Baso % (Auto) Not Reportable Lymph # (Auto) Not Reportable [place] # (Auto) Not Reportable Baso # (Auto) Not Reportable Total Counted 100 Seg Neutrophils % 82.0 H Band Neutrophils % 3.0 Lymphocytes % (Manual) 10.0 L Monocytes % (Manual) 4.0 Basophils % (Manual) 1.0 Neutrophils # (Manual) 31186 H RBC Morphology See below Anisocytosis 1+ H Sodium 144 142 Potassium 4.1 3.7 Chloride 110 H 112 H Carbon Dioxide 29 26 BUN 36 H 33 H Creatinine 0.73 0.66 Estimated GFR > 60 > 60 BUN/Creatinine Ratio 49.3 H 50.0 H Glucose 130 H 127 H Calcium 8.4 7.8 L Phosphorus 3.5 Magnesium 2.0 1.8 Total Bilirubin 0.3 AST 25 ALT 38 H Alkaline Phosphatase 88 Total Protein 5.3 L Albumin 2.4 L Globulin 2.9 Albumin/Globulin Ratio 0.8 L Exam Vital Signs (past 8 hours): - 02/09/22 01:36 02/09/22 02:00 02/09/22 02:00 Temperature Pulse Rate 96 H 102 H Respiratory Rate 22 30 H Blood Pressure 146/72 H Pulse Oximetry 98 85 L Oxygen Delivery Method Fraction of Inspired Oxygen 02/09/22 02:55 02/09/22 03:00 02/09/22 03:00 Temperature Pulse Rate 100 H 97 H Respiratory Rate 29 H 27 H Blood Pressure 120/56 L Pulse Oximetry 99 100 Oxygen Delivery Method Fraction of Inspired Oxygen 02/09/22 03:13 02/09/22 05:00 02/09/22 05:00 Temperature Pulse Rate 101 H Respiratory Rate 20 Blood Pressure Pulse Oximetry 97 97 Oxygen Delivery Method Mechanical Ventilation Mechanical Ventilation Fraction of Inspired Oxygen 02/09/22 04:00 02/09/22 04:00 02/09/22 05:00 Temperature 98.1 F Pulse Rate 96 H 113 H Respiratory Rate 23 25 H Blood Pressure 120/56 L Pulse Oximetry 99 99 Oxygen Delivery Method Fraction of Inspired Oxygen 02/09/22 05:00 02/09/22 06:00 02/09/22 06:00 Temperature Pulse Rate 98 H Respiratory Rate 35 H Blood Pressure 127/78 135/60 Pulse Oximetry 98 Oxygen Delivery Method Fraction of Inspired Oxygen 02/09/22 06:55 02/09/22 07:21 Temperature Pulse Rate 106 H 91 H Respiratory Rate 29 H 18 Blood Pressure Pulse Oximetry 99 100 Oxygen Delivery Method Fraction of Inspired Oxygen 35 Fraction of Inspired Oxygen 35 SaO2/FiO2 Ratio 285 Oxygen Delivery Method Mechanical Ventilation Oxygen Flow Rate 35 Assessment & Plan Assessment & Plan narrative: NEURO: # Acute encephalopathy -- Secondary delirium and sedatives -- Failed SAT -- Avoid sedatives -- On precedex gtt -- Daily SAT -- RASS goal -1 to 0 -- Seek early mobility # Alcohol abuse -- On sedation as above -- On thiamine, folic acid, and MTV -- On seizure precaution RESP: # Acute hypoxemia respiratory failure -- Intubated and sedated -- Secondary to PNA -- On nontoxic level of FIO2 -- Daily SAT and SBT -- HOB elevation -- Aspiration precaution -- Goal SpO2 > 88% # Right pleural effusion -- PEr discusssion with Dr. Irene, there is concern for loculation noted on US and will need chest tube by surgery. Will defer management to surgery for potential intrapleural lytic therapy and decortication. -- Follow up pleural fluid analysis -- On abx as below ID: # COVID PNA -- On decadron 6 mg X 10 days -- On remdesivir therapy -- On contact, airborne, and droplet precautions # Severe sepsis -- Secondary to E. coli, MRSA PNA, staph bacteremia -- On ceftriaxone and doxycyline X 7 days HEME: # Anemia -- Secondary to acute sickness and chronic alcoholism causing BM suppression -- Daily CBC -- Goal Hb > 7 ENDO: -- Goal BS < 180 -- Accucheck every 6 hours D/w RN and Dr. Irene. Time Spent With Patient Critical Care time: I spent a total of 32 minutes of critical care time on this patient's care today; this time is exclusive of procedural time.
--- NOTE | 2022-02-09 10:42 | DIET.CONS2 ---
Dietary Inpatient Consultation Note Admission Date: 01/30/2022 14:10 Pt tolerating TF at 40mL/h. Pt's diarrhea being managed with soluble fiber. Continue current feeding plan. Diet: 01/31/22 04:49 NPO Diet Diet Modifications: NPO Type: Strict 02/02/22 Lunch Tube Feeding Diet Diet Modifications: Prosource pkts 5 x per day with flushes TF Supplement type: Jevity 1.2 tirso TF mode of delivery: Continuous Starting flow rate mL/hr: 20 Flow rate goal mL/hr: 40 Titration Schedule to reach Goal Rate: 10-20mL q4-8h as tolerated Max total daily volume in mL: 2,020 Free fluid: 200 Free Water Frequency: Q4H Comment: hospitalist/fishing reel assembler to manage IVF vs water flushes for fluid balance Nutrition Type of Feeding Tube NG/OG 02/08/22 13:15 Type of Feeding Tube NG/OG 02/08/22 13:00 Type of Feeding Tube NG/OG 02/08/22 01:00 Type of Feeding Tube NG/OG 02/07/22 13:30 Electronically Signed by: Aubrie Mendoza 02/09/22 10:42 Clinical Dietitian [address] [address]
[2022-02-09] MEDS: DEXAMETHASONE 10 MG/ML VIAL 6 MG IV (11:25)
[2022-02-09] MEDS: FOLIC ACID 1 MG TABLET PO (11:27)
[2022-02-09] MEDS: cefTRIAXone 2,000 MG in SODIUM CHLORIDE 0.9% 100 ML 200 MG IV (11:27)
[2022-02-09] MEDS: MULTIVITAMIN 1 TABLET 1 TAB PO (11:29)
[2022-02-09] MEDS: POTASSIUM CHLORIDE 20 MEQ/15 ML UDC TUBE ×2 (11:33→18:28)
[2022-02-09] MEDS: PREGABALIN 75 MG CAPSULE 150 MG PO ×2 (11:33→20:54)
[2022-02-09] MEDS: FAMOTIDINE 20 MG/2 ML VIAL IV ×2 (11:34→20:55)
--- NOTE | 2022-02-09 13:39 | CM.DPNOTE ---
Discharge Planning Note: Patient remains lightly sedated and on ventilator. Partner Saqib at patient bedside all day. She is receiving NGT feedings. Spoke with Saqib regarding possible eventual discharge option of SNF, shared Medicare compare on IPAD with ratings of local SNFs. His 1st choice would be [facility] and 2nd choice [facility]. Patient is nowhere near discharge at this time. Plan: Continue to follow closely for discharge planning needs. Bonny Mcknight RN/DCP
[2022-02-09] MEDS: REMDESIVIR 100 MG in SODIUM CHLORIDE 0.9% 230 ML 230 MG IV (14:40)
[2022-02-09] MEDS: fentaNYL 100 MCG/2 ML INJ 50 MCG IV ×3 (16:50→22:38)
[2022-02-09] MEDS: VENLAFAXINE 37.5 MG TABLET PO (20:54)
[2022-02-09] MEDS: QUETIAPINE 25 MG TABLET PO (20:54)
--- NOTE | 2022-02-09 20:55 | PM.ICURNDS ---
- :: This patient was seen via real time interactive two-way audiovisual telecommunication. patietn currently sedated with preceex and fentanyl added or vent synchrony. stilwith PAC but imrpoved form yesterday, ? diagnostic thoracentesis tomorrow.
[2022-02-09] MEDS: dexmedeTOMIDine in 0.9 % NaCL 400 MCG/100 ML PLAST..BAG 27.413 MCG IV (22:44)
--- NOTE | 2022-02-09 22:57 | PC.NURSE ---
Addendum entered by Yoselyn Boyce R.N. 02/10/22 05:48: Medicated throughout night, reassuring patient encouraging her to take slow breaths on ventilator. Pt not following commands, and respiratory rate increasing to 40-50 while awake. Attempting to wean precedex, but unable due to agitation of patient. Original Note: Patient pulling on restraints, coughing with nothing to suction. Trying to tongue out her tube, Patient medicated with fentanyl slowly and awaiting results. Patient reassured and reposition, kicking feet in the air and continuing to pull on restraints. Finally slowly decreasing movements.
[2022-02-10] VITALS (43 sets, daily range): BP systolic 84–163; BP diastolic 51–75; PULSE 69–114; RESP 12–41; TEMP 36.4–37.1; O2SAT 86–100
[2022-02-10] MEDS: fentaNYL 100 MCG/2 ML INJ 50 MCG IV ×5 (01:54→19:45)
[2022-02-10] MEDS: dexmedeTOMIDine in 0.9 % NaCL 400 MCG/100 ML PLAST..BAG 27.413 MCG IV ×3 (01:55→08:20)
[2022-02-10] MEDS: DOXYCYCLINE 100 MG in SODIUM CHLORIDE 0.9% 100 ML IV ×2 (03:08→15:58)
[2022-02-10] MEDS: CHLORHEXIDINE GLUCONATE 15 ML CUP PO ×4 (04:07→22:03)
[2022-02-10 04:42] LABS: Add Manual Diff / Slide Review NO; Basophils Absolute Auto 300 /uL (0-100); Basophils Percent Auto 1.3 % (0-2); Eosinophils Absolute Auto 100 /uL (0-450); Eosinophils Percent Auto 0.2 % (2-4); Hemoglobin 8.2 g/dL (12.0-16.0); Lymphocytes Absolute Auto 1800 /uL (1100-4500); Lymphocytes Percent Auto 7.5 % (25-40); Mean Corpuscular HGB Conc 31.8 % (30-36); Mean Corpuscular Hemoglobin 31.5 PG (26-34); Mean Corpuscular Volume 99.3 fL (80-100); Monocytes Absolute Auto 1300 /uL (0-900); Monocytes Percent Auto 5.3 % (3-14); Neutrophils Absolute Auto 20700 /uL (1500-7000); Neutrophils Percent Auto 85.7 % (50-75); Platelet Count 524 X10^3/uL (150-400); Red Blood Cell Count 2.61 X10^6/uL (4.0-5.2); Red Cell Distribution Width 15.1 % (11.6-14.8); White Blood Cell Count 24.2 X10^3/uL (4.5-11.0)
[2022-02-10 04:49] LABS: Alanine Aminotransferase 44 IU/L (<35); Albumin 2.6 g/dL (3.5-5.0); Albumin Globulin Ratio 0.8 (1.0-2.8); Alkaline Phosphatase 94 U/L (38-126); Aspartate Aminotransferase 32 IU/L (14-36); BUN Creatinine Ratio 49.3 (6-22); Bilirubin Total 0.3 mg/dL (0.2-1.3); Blood Urea Nitrogen 33 mg/dL (7-17); Calcium 8.2 mg/dL (8.4-10.2); Carbon Dioxide 28 mmol/L (22-32); Chloride 112 mmol/L (98-107); Estimated Glomerular Filt Rate > 60 mL/min (>60); Globulin 3.1 g/dL (1.7-4.1); Glucose 135 mg/dL (80-110); HEMOLYSIS < 15 (0-50); Magnesium 2.1 mg/dL (1.6-2.3); Potassium 4.1 mmol/L (3.4-5.1); Sodium 145 mmol/L (137-145); Total Protein 5.7 g/dL (6.3-8.2)
[2022-02-10] MEDS: HEPARIN 5,000 UNIT/ML VIAL 5000 UNIT SUBCUT ×2 (05:40→20:45)
[2022-02-10] MEDS: MULTIVITAMIN 1 TABLET 1 TAB PO (08:11)
[2022-02-10] MEDS: PREGABALIN 75 MG CAPSULE 150 MG PO ×2 (08:12→20:46)
[2022-02-10] MEDS: VENLAFAXINE 37.5 MG TABLET PO ×2 (08:12→20:46)
[2022-02-10] MEDS: FOLIC ACID 1 MG TABLET PO (08:12)
[2022-02-10] MEDS: DEXAMETHASONE 10 MG/ML VIAL 6 MG IV (08:13)
[2022-02-10] MEDS: FAMOTIDINE 20 MG/2 ML VIAL IV ×2 (08:13→20:45)
[2022-02-10] MEDS: NICOTINE 14 PATCH 14 MG TOP (08:13)
[2022-02-10] MEDS: POTASSIUM CHLORIDE 20 MEQ/15 ML UDC TUBE ×2 (08:18→15:58)
[2022-02-10] MEDS: ALBUTEROL/IPRATROPIUM 3 ML AMPUL INH ×3 (08:28→19:23)
[2022-02-10] MEDS: BUDESONIDE 0.5 MG/2 ML NEB INH ×2 (08:28→19:22)
--- NOTE | 2022-02-10 09:44 | PM.PN.EICU ---
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 Awake and follow commands with spouse at bedside. ON minimum vent setting. Chest tube insertion delay by surgical team for unknown reason. Passed SAT but failed SBT. Current Medications Current Medications Medications: Home Medications leflunomide 20 mg tablet 20 mg PO DAILY #90 tabs 12/04/20 [Rx Confirmed 01/30/22] colchicine 0.6 mg capsule See Rx Instructions .Route .COMPLEX #180 caps 12/31/20 [Rx Confirmed 01/30/22] atorvastatin 20 mg tablet 20 mg PO DAILY #90 tabs 08/20/21 [Rx Confirmed 01/30/22] hydrochlorothiazide 25 mg tablet 25 mg PO DAILY #90 tabs 08/20/21 [Rx Confirmed 01/30/22] metoprolol tartrate 50 mg tablet 50 mg PO BID #180 tabs 08/20/21 [Rx Confirmed 01/30/22] nortriptyline 50 mg capsule 50 mg PO DAILY #90 caps 08/20/21 [Rx Confirmed 01/30/22] pregabalin 150 mg capsule 150 mg PO BID #180 caps 08/20/21 [Rx Confirmed 01/30/22] venlafaxine 37.5 mg capsule,extended release 24 hr 37.5 mg PO 2XD 01/30/22 [History Confirmed 01/30/22] Visit Medications (administered) Generic Name Dose Route Start Last Admin Trade Name Freq PRN Reason Stop Dose Admin Albuterol 2.5 mg 01/30/22 16:37 02/05/22 01:38 Albuterol 2.5 Mg/3 Ml Neb (Adult) INH 2.5 mg [id number] PRN Administration Shortness Of Breath Albuterol/Ipratropium 3 ml 01/30/22 19:00 02/10/22 08:28 Albuterol/Ipratropium 3 Ml Ampul INH 3 ml [id number] MELVIN Administration Budesonide 0.5 mg 02/03/22 20:00 02/10/22 08:28 Budesonide 0.5 Mg/2 Ml Neb INH 0.5 mg RTBID MELVIN Administration Chlorhexidine Gluconate 15 ml 02/02/22 16:00 02/10/22 04:07 Chlorhexidine Gluconate 15 Ml Cup PO 15 ml Q6H MELVIN Administration Famotidine 20 mg 02/01/22 10:45 02/10/22 08:13 Famotidine 20 Mg/2 Ml Vial IV 20 mg BID MELVIN Administration Fentanyl 50 mcg 02/09/22 16:23 02/10/22 08:14 Fentanyl 100 Mcg/2 Ml Inj IV 50 mcg Q2H PRN Administration Pain, Severe (7-10) Folic Acid 1 mg 01/31/22 09:00 02/10/22 08:12 Folic Acid 1 Mg Tablet PO 1 mg DAILY MELVIN Administration Heparin Sodium (Porcine) 5,000 unit 01/31/22 06:00 02/10/22 05:40 Heparin 5,000 Unit/Ml Vial SUBCUT 5,000 unit Q8HR MELVIN Administration Heparin Sodium (Porcine) 50 unit 02/02/22 00:45 02/10/22 08:13 Heparin Flush (Cl/Picc/Mid-Line) 50 Unit/5 Ml Syringe IV 50 unit BID MELVIN Administration NOREPINEPHRINE BITARTRATE/D5W 4 mg in 250 mls @ 30 mls/hr 01/31/22 07:09 02/01/22 02:48 Levophed IV 0 mcg/min TITRATE MELVIN 0 mls/hr Titration Protocol 8 MCG/MIN dexmedeTOMIDine in 0.9 % NaCL 400 mcg in 100 mls @ 3.655 mls/hr 02/02/22 13:00 02/10/22 08:20 Precedex IV 1.5 mcg/kg/hr TITRATE MELVIN 27.413 mls/hr Administration Protocol 0.2 MCG/KG/HR Doxycycline Hyclate 100 mg/ 100 mls @ 100 mls/hr 02/04/22 15:30 02/10/22 07:43 Sodium Chloride IV 02/11/22 15:29 Infused Q12H MELVIN Infusion Loperamide HCl 4 mg 02/03/22 03:17 02/03/22 03:51 Loperamide 2 Mg Capsule PO 4 mg PRN PRN Administration Diarrhea Multivitamins 1 tab 01/31/22 09:00 02/10/22 08:11 Multivitamin 1 Tablet PO 1 tab DAILY MELVIN Administration Nicotine 14 mg 01/31/22 09:00 02/10/22 08:13 Nicotine 14 Patch TOP 14 mg DAILY MELVIN Administration Nystatin 1 applic 02/09/22 18:05 02/10/22 08:15 Nystatin Cream 30 Gm TOP Not Given BID MELVIN Potassium Chloride 20 meq 02/06/22 10:12 02/10/22 08:18 Potassium Chloride 20 Meq/15 Ml Udc TUBE 20 meq BIDWM MELVIN Administration Pregabalin 150 mg 02/05/22 21:00 02/10/22 08:12 Pregabalin 75 Mg Capsule PO 150 mg BID MELVIN Administration Quetiapine Fumarate 25 mg 02/09/22 21:00 02/09/22 20:54 Quetiapine 25 Mg Tablet PO 25 mg BEDTIME MELVIN Administration Venlafaxine HCl 37.5 mg 02/02/22 21:00 02/10/22 08:12 Venlafaxine 37.5 Mg Tablet PO 37.5 mg BID MELVIN Administration Objective Ventilator Parameters: Ventilator Settings Pressure Control 15 FiO2 35 RT Vent Frequency 16 Ventilator Tidal Volume 370 Exhaled Vt/kg IBW 6 Positive End Expiratory 5 Pressure Ventilator Pressure Support 2 Inspiratory Phase Time 0.75 I:E Ratio 1:4 Patient Position HOB >= 30 degrees Labs Result Diagrams: 02/10/22 04:00 02/10/22 04:00 Labs: Laboratory Results - last 24 hr 02/10/22 02/10/22 04:00 04:00 WBC 24.2 H RBC 2.61 L Hgb 8.2 L Hct 26.0 L MCV 99.3 MCH 31.5 MCHC 31.8 RDW 15.1 H Plt Count 524 H Neut % (Auto) 85.7 H Lymph % (Auto) 7.5 L [place] % (Auto) 5.3 Eos % (Auto) 0.2 L Baso % (Auto) 1.3 Neut # (Auto) 67555 H Lymph # (Auto) 1800 [place] # (Auto) 1300 H Eos # (Auto) 100 Baso # (Auto) 300 H Sodium 145 Potassium 4.1 Chloride 112 H Carbon Dioxide 28 BUN 33 H Creatinine 0.67 Estimated GFR > 60 BUN/Creatinine Ratio 49.3 H Glucose 135 H Calcium 8.2 L Magnesium 2.1 Total Bilirubin 0.3 AST 32 ALT 44 H Alkaline Phosphatase 94 Total Protein 5.7 L Albumin 2.6 L Globulin 3.1 Albumin/Globulin Ratio 0.8 L Exam Vital Signs (past 8 hours): - 02/10/22 02:00 02/10/22 02:00 02/10/22 02:05 Temperature Pulse Rate 91 H 83 Respiratory Rate 25 H 14 Blood Pressure 143/65 H Pulse Oximetry 87 L 96 Oxygen Delivery Method Fraction of Inspired Oxygen 02/10/22 03:00 02/10/22 03:00 02/10/22 04:00 Temperature 98.0 F Pulse Rate 80 86 Respiratory Rate 15 20 Blood Pressure 107/55 L Pulse Oximetry 99 89 L Oxygen Delivery Method Fraction of Inspired Oxygen 02/10/22 04:00 02/10/22 04:24 02/10/22 05:00 Temperature Pulse Rate 80 Respiratory Rate 16 Blood Pressure 131/60 Pulse Oximetry 92 96 Oxygen Delivery Method Mechanical Ventilation Fraction of Inspired Oxygen 02/10/22 05:00 02/10/22 05:00 02/10/22 05:00 Temperature Pulse Rate 79 Respiratory Rate 16 Blood Pressure 100/52 L Pulse Oximetry 100 Oxygen Delivery Method Mechanical Ventilation Fraction of Inspired Oxygen 02/10/22 05:02 02/10/22 06:00 02/10/22 06:00 Temperature Pulse Rate 79 84 Respiratory Rate 15 19 Blood Pressure 127/62 Pulse Oximetry 98 95 Oxygen Delivery Method Fraction of Inspired Oxygen 02/10/22 06:28 02/10/22 08:30 Temperature Pulse Rate 78 98 H Respiratory Rate 17 20 Blood Pressure Pulse Oximetry 94 89 L Oxygen Delivery Method Fraction of Inspired Oxygen 35 Fraction of Inspired Oxygen 35 SaO2/FiO2 Ratio 254 Oxygen Delivery Method Mechanical Ventilation Oxygen Flow Rate 35 Narrative Exam Narrative: Intubated. Able to follow simple commands when asked by RN. Assessment & Plan Assessment & Plan narrative: NEURO: # Acute encephalopathy -- Secondary delirium and sedatives -- Passed SAT but failed SBT -- On precedex gtt -- Daily SAT -- RASS goal -1 to 0 -- Seek early mobility # Alcohol abuse -- On sedation as above -- On thiamine, folic acid, and MTV -- On seizure precaution RESP: # Acute hypoxemia respiratory failure -- Intubated and sedated -- Secondary to PNA -- Failed SBT due to tachypnea -- Start lasix 40 mg IV BID to seek net negative fluid balance -- Daily SAT and SBT -- HOB elevation -- Aspiration precaution -- Goal SpO2 > 88% # Right pleural effusion -- PEr discusssion with Dr. Stark, there is concern for loculation noted on US and will need chest tube by surgery. Will defer management to surgery for potential intrapleural lytic therapy and decortication. -- Follow up pleural fluid analysis -- On abx as below ID: # COVID PNA -- On decadron 6 mg X 10 days -- On contact, airborne, and droplet precautions # Severe sepsis -- Secondary to E. coli, MRSA PNA, staph bacteremia -- On ceftriaxone and doxycyline X 7 days HEME: # Anemia -- Secondary to acute sickness and chronic alcoholism causing BM suppression -- Daily CBC -- Goal Hb > 7 ENDO: -- Goal BS < 180 -- Accucheck every 6 hours D/w RN and spouse at bedside. Time Spent With Patient Critical Care time: I spent a total of 32 minutes of critical care time on this patient's care today; this time is exclusive of procedural time.
--- NOTE | 2022-02-10 10:56 | PC.NURSE ---
Addendum entered by Whitney Eason R.N. 02/10/22 18:53: Dr. Paige placed chest tube to right chest at 1645, pt medicated with total of 150 mcg fentanyl IV and 2 mg versed. Tolerated well. About 1L serous yellow fluid drained, samples sent to lab. Pt placed back to vent 35%/370/18/5 prior to chest tube insertion at 1640. Original Note: Day Shift Note Pt awake and looking around room, looks toward speaker but does not maintain eye contact, not following any other commands. Pt at bedside and pt does follow commands from , squeezing hands on commands and slowing down breathing. Precedex decreased to 1.2 mcg/kg/hr. Rounds done in room with Dr. Villatoro and pt subsequently placed on CPAP trial by RT at 0942, FiO2 35%, 01/12. SpO2 remains over 92% and RR in the 20-30s, breathing does appear labored with significant abdominal muscle involvement. Tolerated brief change and clean up without issue, nystatin ointment applied to groin. Surgery to see pt this afternoon for chest tube placement. remains at bedside.
--- NOTE | 2022-02-10 11:28 | P.PN_ITS ---
Subjective Subjective Date Patient Seen: 02/10/22 Interval history: Plan for chest tube to drain empyema this afternoon, tolerating SBT, does not follow commands this AM, rhythmically turning head and opening eyes. Exam Vital Signs (past 8 hours): - 02/10/22 04:00 02/10/22 04:00 02/10/22 04:24 Temperature 98.0 F Pulse Rate 86 80 Respiratory Rate 20 16 Blood Pressure 131/60 Pulse Oximetry 89 L 92 Oxygen Delivery Method Fraction of Inspired Oxygen 02/10/22 05:00 02/10/22 05:00 02/10/22 05:00 Temperature Pulse Rate Respiratory Rate Blood Pressure 100/52 L Pulse Oximetry 96 Oxygen Delivery Method Mechanical Ventilation Mechanical Ventilation Fraction of Inspired Oxygen 02/10/22 05:00 02/10/22 05:02 02/10/22 06:00 Temperature Pulse Rate 79 79 Respiratory Rate 16 15 Blood Pressure 127/62 Pulse Oximetry 100 98 Oxygen Delivery Method Fraction of Inspired Oxygen 02/10/22 06:00 02/10/22 06:28 02/10/22 08:30 Temperature Pulse Rate 84 78 98 H Respiratory Rate 19 17 20 Blood Pressure Pulse Oximetry 95 94 89 L Oxygen Delivery Method Fraction of Inspired Oxygen 35 02/10/22 09:00 02/10/22 09:40 02/10/22 09:00 Temperature Pulse Rate Respiratory Rate Blood Pressure Pulse Oximetry 96 98 Oxygen Delivery Method Mechanical Ventilation Mechanical Ventilation Fraction of Inspired Oxygen 02/10/22 07:00 02/10/22 07:00 02/10/22 08:00 Temperature Pulse Rate 78 Respiratory Rate 18 Blood Pressure 114/54 L 133/74 Pulse Oximetry 98 Oxygen Delivery Method Fraction of Inspired Oxygen 02/10/22 08:00 02/10/22 09:00 02/10/22 09:00 Temperature Pulse Rate 96 H 100 H Respiratory Rate 24 25 H Blood Pressure 138/62 Pulse Oximetry 86 L 88 L Oxygen Delivery Method Fraction of Inspired Oxygen 02/10/22 10:00 02/10/22 10:00 02/10/22 11:00 Temperature Pulse Rate 111 H Respiratory Rate 30 H Blood Pressure 163/75 H 151/65 H Pulse Oximetry 95 Oxygen Delivery Method Fraction of Inspired Oxygen 02/10/22 11:00 Temperature 98.7 F Pulse Rate 110 H Respiratory Rate 41 H Blood Pressure Pulse Oximetry 89 L Oxygen Delivery Method Fraction of Inspired Oxygen Fraction of Inspired Oxygen 35 SaO2/FiO2 Ratio 254 Oxygen Delivery Method Mechanical Ventilation Oxygen Flow Rate 35 Narrative Exam Narrative: GEN:? Ill-appearing middle-aged female, intubated, sedation off, CV: tachycardic, regular no m/r/g. PULM: RLL markedly decreased breath sounds, coarse throughout the remainder of lung [place]. ABD: Soft, NT, mild distension EXTR: warm, poor skin both legs with dry plantar feet, left third toe amputation, trace edema lower and upper extremities. NEURO:?she rhythmically shifts here head, opens eyes, does not follow commands reliably Objective Labs Result Diagrams: 02/10/22 04:00 02/10/22 04:00 Labs: Laboratory Results - last 24 hr 02/10/22 02/10/22 04:00 04:00 WBC 24.2 H RBC 2.61 L Hgb 8.2 L Hct 26.0 L MCV 99.3 MCH 31.5 MCHC 31.8 RDW 15.1 H Plt Count 524 H Neut % (Auto) 85.7 H Lymph % (Auto) 7.5 L [place] % (Auto) 5.3 Eos % (Auto) 0.2 L Baso % (Auto) 1.3 Neut # (Auto) 83916 H Lymph # (Auto) 1800 [place] # (Auto) 1300 H Eos # (Auto) 100 Baso # (Auto) 300 H Sodium 145 Potassium 4.1 Chloride 112 H Carbon Dioxide 28 BUN 33 H Creatinine 0.67 Estimated GFR > 60 BUN/Creatinine Ratio 49.3 H Glucose 135 H Calcium 8.2 L Magnesium 2.1 Total Bilirubin 0.3 AST 32 ALT 44 H Alkaline Phosphatase 94 Total Protein 5.7 L Albumin 2.6 L Globulin 3.1 Albumin/Globulin Ratio 0.8 L PFSH Medical History Alcohol dependence Anemia Anxiety Chronic back pain (~2013) COVID-19 virus infection Degenerative joint disease (DJD) of lumbar spine (~1975) Hyperlipidemia Hypertension Osteoarthritis (~2013) Pneumonia Rheumatoid arthritis (~2009) Scoliosis (~1975) Tobacco dependence Surgical History Anesthesia History of amputation of toe (~2018) History of incision and drainage (03/19/20) Status post left foot surgery (08/23/20) Family History Father Cancer Hypertension Hyperlipidemia Mother Hypertension Brother Testicular cancer Hypertension Brother Diabetes mellitus Hypertension Hyperlipidemia Social History household members: significant other and family Smoking Status: Current every day smoker Tobacco: How many years used: 40 quit status: quit date established (September 08 2020) second hand exposure: No alcohol intake: current substance use type: does not use Assessment & Plan Assessment & Plan narrative: 1. Acute hypoxic respiratory failure -secondary to MSSA, MRSA bacterial pneumonia with empyema. -continue ventilatory support coordinating with tele ICU physician -minimize sedation, currently on Precedex only, encephalopathy does appear to be improving in setting of EtOH withdrawal. Okay to continue prn fentanyl as well for apparent discomfort. -weaning trials once awake -ultrasound thoracentesis of right pleural effusion on 02/08 consistent with loculated pleural effusion, general surgery consultation for chest tube placement, planned for placement today. 2. COVID pneumonia with superimposed bacterial pneumonia secondary to MRSA, MSSA with empyema. -continued steroid and remdesivir through 02/09/2022 to complete 10 day course (methylprednisolone switched back to dexamethasone by tele ICU) -doxycycline and ceftriaxone IV for MRSA and MSSA in sputum, WBC increasing likely due to empyema. -persistent elevated WBC noted and may represent stress demargination, steroid or empyema, favor empyema with loculated appearance on ultrasound. -bedside ultrasound 02/08/22 with loculated pleural effusion, discussed with general surgery. Awaiting chest tube placement. Also attempted transfer for cardiothoracic surgery however there are no current available beds. 3. E coli urinary infection, present on admission -complete 1 week course of Rocephin through 02/10/2022 4. Acute alcohol withdrawal and metabolic encephalopathy -continued delirium, managed with Precedex and Seroquel 25 mg bid initially reduce to 25 mg nightly today. -had been difficult to control initially with multiple sedatives trialed including propfol which caused hypertriglyceridemia. -appreciate tele-traffic representative consultation. -she remains slow to recover, not reliably following commands this AM but remains on some precedex. Suspect empyema is contributing to continued encephalopathy, but if no significant improvement over the coming days consider head CT or if able to be extubated MRI. 5. Septic shock, resolved -due to pneumonia and acute cystitis (secondary to MSSA and MRSA based on sputum cultures, urinary infection with E. coli). -prior cultures staph epidermidis blood culture - likely contaminant 6. PAUL, present on admission, resolved 7. Tobacco dependence -nicotine patch 8. History of rheumatoid arthritis Tubes/lines: Right IJ - placed 01/31 PIV LFA- placed 02/04 Mari cath - placed 01/31 ETT- placed 01/31? FEN: Pivot 1.5 at 10 cc/hr--traffic representative has approved gradual titration up to a max of 40 cc/hour.? This will hopefully improve her nutritional status and low albumin state Code status Full Prophylaxis On heparin and famotidine Disposition ICU Time Spent With Patient Critical Care time: 40 minutes I spent a total of [> 30] minutes of critical care time on this patient's care today; this time is exclusive of procedural time. Time Spent With Patient Critical Care time: I spent a total of [] minutes of critical care time on this patient's care today; this time is exclusive of procedural time.
[2022-02-10] MEDS: FUROSEMIDE 40 MG/4 ML VIAL IV (13:38)
[2022-02-10] MEDS: dexmedeTOMIDine in 0.9 % NaCL 400 MCG/100 ML PLAST..BAG 21.93 MCG IV ×3 (14:52→21:35)
--- NOTE | 2022-02-10 16:45 | DI.RAD.S_ITS ---
PROCEDURE: XR CHEST 1V INDICATIONS: post chest tube placement TECHNIQUE: One view of the chest was acquired. COMPARISON: [facility], CR, XR CHEST 1V, 02/09/2022, 5:58. FINDINGS: Surgical changes and devices: Endotracheal tube measures 2.7 cm superior to the nona. Nasogastric tube is unchanged as well as right-sided central venous catheter. Left-sided chest tube is been placed overlying the lateral inferior aspect of the right upper lobe. Lungs and pleura: There has been interval decrease of right pleural effusion. Persistent right basilar opacity is present. Linear opacities are present in the left base likely atelectasis. Mediastinum: Mediastinal contours appear normal. Heart size is normal. Bones and chest wall: No suspicious bony lesions. Overlying soft tissues appear unremarkable. IMPRESSION: Interval chest tube placement with decreased although persistent right effusion and opacities. Dictated by: Tamika Boyd M.D. on 02/10/2022 at 17:26 Approved by: Tamika Boyd M.D. on 02/10/2022 at 17:27
--- NOTE | 2022-02-10 16:53 | P.OP_ITS ---
Operative Date/Time/Diagnoses Date of procedure: 02/10/22 Time of procedure: 16:53 Pre-op diagnosis: respiratory failure right pleural effusion Post-op diagnosis: same Procedure & Clinicians Procedure: Right thoracostomy Same procedure as scheduled: Yes Indications: Intubated for 11 days with COVID with large right pleural effusion. Following discussion with at bedside with nursing staff elect to proceed with chest tube placement for drainage of pleural effusion Surgeon: Mynor Paige Operative Notes Findings: 1 L of yellow clear fluid drained spontaneously Specimen(s): other (pleural effusion) Estimated Blood Loss (mL): 0 Procedure in detail: Patient was already intubated in the intensive care unit. Surgical time-out was performed. The right chest was prepped and draped in sterile fashion. 10 mL of 1% lidocaine was infiltrated into the subcutaneous tissue and into the pleural space with return of clear fluid. Incision was then made in mid axillary line at the level of the inframammary fold on the right chest. The rib was palpated and then the pleural space was entered just above the rib with spontaneous return of yellowish fluid. Twenty-eight [place] chest tube was then placed into the chest and secured in position. Approximately 1 L of fluid spontaneously drained from the chest cultures were taken. Postprocedure chest x-ray demonstrates a chest tube appropriately positioned. Post-operative Condition: stable Disposition: ICU
[2022-02-10] MEDS: fentaNYL 100 MCG/2 ML INJ 150 MCG IV (17:00)
[2022-02-10] MEDS: LIDOCAINE 1% 30 ML INJ (17:08)
[2022-02-10] MEDS: MIDAZOLAM 5 MG/ML VIAL (17:09)
[2022-02-10 17:37] LABS: Body Fluid Red Blood Cells 4844 /uL; Body Fluid Tot Nucleated Cells 1686 /uL
[2022-02-10 17:40] LABS: Body Fluid Appearance HAZY; Body Fluid Clotted? NO CLOTS PRESENT; Body Fluid Color YELLOW
[2022-02-10 18:04] LABS: Eosinophils Body Fluid 0 %; Mononuclear WBC Body Fluid 14 %; Other Cells Body Fluid 0 %; Polynuclear WBC Body Fluid 86 %
--- NOTE | 2022-02-10 20:45 | PM.ICURNDS ---
- :: This patient was seen via real time interactive two-way audiovisual telecommunication. patietn remains intubated, sedation is an issue which has been casuing a degree of vent dyssynchrony. Chest tube placed ~ 1l drained thus far. pleural fludi analysis ordered, and culteres were sent earlier. otherwise will continue current management
[2022-02-10] MEDS: NYSTATIN CREAM 30 GM 1 APPLIC TOP (20:46)
[2022-02-10] MEDS: QUETIAPINE 25 MG TABLET 50 MG PO (20:46)
--- NOTE | 2022-02-10 21:32 | PC.NURSE ---
Patient breathing with full body, tripping alarms on ventilator, unable to calm herself down. Medicated with fentanyl in an attempt to help pt. breath with ventilator. Patient suctioned with moderate amount of thick ennis secretions removed. Spoke to Dr. Almaraz and night time dose of seroquel increased to 50mg via NG tube awaiting response.
[2022-02-11] VITALS (40 sets, daily range): BP systolic 98–187; BP diastolic 53–102; PULSE 72–120; RESP 11–40; TEMP 36.7–37; O2SAT 87–100
[2022-02-11] MEDS: dexmedeTOMIDine in 0.9 % NaCL 400 MCG/100 ML PLAST..BAG 18.275 MCG IV (01:04)
[2022-02-11] MEDS: fentaNYL 100 MCG/2 ML INJ 50 MCG IV (02:12)
[2022-02-11] MEDS: DOXYCYCLINE 100 MG in SODIUM CHLORIDE 0.9% 100 ML IV (03:36)
[2022-02-11] MEDS: dexmedeTOMIDine in 0.9 % NaCL 400 MCG/100 ML PLAST..BAG 21.93 MCG IV ×3 (03:56→12:30)
[2022-02-11 04:15] LABS: Alanine Aminotransferase 48 IU/L (<35); Albumin 2.3 g/dL (3.5-5.0); Albumin Globulin Ratio 0.8 (1.0-2.8); Alkaline Phosphatase 86 U/L (38-126); Aspartate Aminotransferase 38 IU/L (14-36); BUN Creatinine Ratio 55.6 (6-22); Bilirubin Total 0.3 mg/dL (0.2-1.3); Blood Urea Nitrogen 35 mg/dL (7-17); Calcium 8.1 mg/dL (8.4-10.2); Carbon Dioxide 30 mmol/L (22-32); Chloride 110 mmol/L (98-107); Estimated Glomerular Filt Rate > 60 mL/min (>60); Globulin 2.8 g/dL (1.7-4.1); Glucose 139 mg/dL (80-110); HEMOLYSIS < 15 (0-50); Potassium 3.7 mmol/L (3.4-5.1); Sodium 146 mmol/L (137-145); Total Protein 5.1 g/dL (6.3-8.2)
[2022-02-11 04:17] LABS: Add Manual Diff / Slide Review NO; Basophils Absolute Auto 200 /uL (0-100); Basophils Percent Auto 1.2 % (0-2); Eosinophils Absolute Auto 0 /uL (0-450); Eosinophils Percent Auto 0.2 % (2-4); Hematocrit 23.7 % (36-46); Hemoglobin 7.5 g/dL (12.0-16.0); Lymphocytes Absolute Auto 1300 /uL (1100-4500); Lymphocytes Percent Auto 7.1 % (25-40); Mean Corpuscular HGB Conc 31.7 % (30-36); Mean Corpuscular Hemoglobin 31.4 PG (26-34); Monocytes Absolute Auto 900 /uL (0-900); Monocytes Percent Auto 4.9 % (3-14); Neutrophils Absolute Auto 16100 /uL (1500-7000); Neutrophils Percent Auto 86.6 % (50-75); Platelet Count 433 X10^3/uL (150-400); White Blood Cell Count 18.6 X10^3/uL (4.5-11.0)
[2022-02-11] MEDS: CHLORHEXIDINE GLUCONATE 15 ML CUP PO ×2 (04:22→11:14)
[2022-02-11] MEDS: HEPARIN 5,000 UNIT/ML VIAL 5000 UNIT SUBCUT ×3 (05:34→22:47)
[2022-02-11] MEDS: POTASSIUM CHLORIDE 20 MEQ/15 ML UDC TUBE (08:12)
[2022-02-11] MEDS: PREGABALIN 75 MG CAPSULE 150 MG PO ×2 (08:12→21:09)
[2022-02-11] MEDS: FOLIC ACID 1 MG TABLET PO (08:13)
[2022-02-11] MEDS: VENLAFAXINE 37.5 MG TABLET PO ×2 (08:13→21:09)
[2022-02-11] MEDS: FAMOTIDINE 20 MG/2 ML VIAL IV ×2 (08:13→20:32)
[2022-02-11] MEDS: NICOTINE 14 PATCH 14 MG TOP (08:13)
[2022-02-11] MEDS: MULTIVITAMIN 1 TABLET 1 TAB PO (08:13)
[2022-02-11] MEDS: NYSTATIN CREAM 30 GM 1 APPLIC TOP ×2 (08:14→21:08)
[2022-02-11] MEDS: BUDESONIDE 0.5 MG/2 ML NEB INH ×2 (08:38→19:43)
[2022-02-11] MEDS: ALBUTEROL/IPRATROPIUM 3 ML AMPUL INH ×4 (08:38→23:26)
--- NOTE | 2022-02-11 10:10 | DI.RAD.S_ITS ---
PROCEDURE: XR CHEST 1V INDICATIONS: post chest tube TECHNIQUE: One view of the chest was acquired. COMPARISON: [facility], CR, XR CHEST 1V, 02/10/2022, 16:50. FINDINGS: Surgical changes and devices: Endotracheal tube tip 2.5 cm above the nona. Nasogastric tube in the stomach. Right IJ central venous line tip in the upper SVC. Right-sided chest tube in place. Lungs and pleura: Dense right pulmonary infiltrate consistent with pneumonia. Heart size enlarged. Mild underlying vascular congestion. Left pleural space clear. Mediastinum: Mediastinal contours appear normal. Bones and chest wall: No suspicious bony lesions. Overlying soft tissues appear unremarkable. IMPRESSION: Lines tubes in good position. No pneumothorax. Dense right pulmonary infiltrate, consistent with pneumonia Approved by: Jameel Quiroz M.D. on 02/11/2022 at 10:10
[2022-02-11 10:47] LABS: pH ABG 7.33 (7.35-7.45)
[2022-02-11 10:49] LABS: HCO3 ABG 33 mmol/L (22-26); PCO2 ABG 63.6 mmHg (35-45); PO2 ABG 77 mmHg (80-100)
[2022-02-11 10:50] LABS: Fractionated Inspired Oxygen 30; Oxygen Saturation ABG 94 % (95-100); TCO2 ABG 35 mmol/L (21-31)
--- NOTE | 2022-02-11 11:20 | PM.PN.EICU ---
Subjective Subjective IF CAMERA ACTIVATED, patient seen via real-time interactive audiovisual communication: Camera activated Consent obtained for tele-legal adviser care: Yes Patient Location: ICU Provider location (State): [place] Other participants/roles: RN, Pharmacy, RT, Family Subjective Interval history: R chest tube placed yesterday with 1L immediate output, about 250cc overnight. Labs/Cxs pending on pleural fluid. Passed SAT today, on SBT during rounds. Current Medications Current Medications Medications: Home Medications leflunomide 20 mg tablet 20 mg PO DAILY #90 tabs 12/04/20 [Rx Confirmed 01/30/22] colchicine 0.6 mg capsule See Rx Instructions .Route .COMPLEX #180 caps 12/31/20 [Rx Confirmed 01/30/22] atorvastatin 20 mg tablet 20 mg PO DAILY #90 tabs 08/20/21 [Rx Confirmed 01/30/22] hydrochlorothiazide 25 mg tablet 25 mg PO DAILY #90 tabs 08/20/21 [Rx Confirmed 01/30/22] metoprolol tartrate 50 mg tablet 50 mg PO BID #180 tabs 08/20/21 [Rx Confirmed 01/30/22] nortriptyline 50 mg capsule 50 mg PO DAILY #90 caps 08/20/21 [Rx Confirmed 01/30/22] pregabalin 150 mg capsule 150 mg PO BID #180 caps 08/20/21 [Rx Confirmed 01/30/22] venlafaxine 37.5 mg capsule,extended release 24 hr 37.5 mg PO 2XD 01/30/22 [History Confirmed 01/30/22] Visit Medications (administered) Generic Name Dose Route Start Last Admin Trade Name Freq PRN Reason Stop Dose Admin Albuterol 2.5 mg 01/30/22 16:37 02/05/22 01:38 Albuterol 2.5 Mg/3 Ml Neb (Adult) INH 2.5 mg [id number] PRN Administration Shortness Of Breath Albuterol/Ipratropium 3 ml 01/30/22 19:00 02/11/22 08:38 Albuterol/Ipratropium 3 Ml Ampul INH 3 ml [id number] MELVIN Administration Budesonide 0.5 mg 02/03/22 20:00 02/11/22 08:38 Budesonide 0.5 Mg/2 Ml Neb INH 0.5 mg RTBID MELVIN Administration Chlorhexidine Gluconate 15 ml 02/02/22 16:00 02/11/22 11:14 Chlorhexidine Gluconate 15 Ml Cup PO 15 ml Q6H MELVIN Administration Famotidine 20 mg 02/01/22 10:45 02/11/22 08:13 Famotidine 20 Mg/2 Ml Vial IV 20 mg BID MELVIN Administration Fentanyl 50 mcg 02/09/22 16:23 02/11/22 02:12 Fentanyl 100 Mcg/2 Ml Inj IV 50 mcg Q2H PRN Administration Pain, Severe (7-10) Folic Acid 1 mg 01/31/22 09:00 02/11/22 08:13 Folic Acid 1 Mg Tablet PO 1 mg DAILY MELVIN Administration Furosemide 40 mg 02/10/22 12:00 02/11/22 00:07 Furosemide 40 Mg/4 Ml Vial IV Not Given Q12H MELVIN Heparin Sodium (Porcine) 5,000 unit 01/31/22 06:00 02/11/22 05:34 Heparin 5,000 Unit/Ml Vial SUBCUT 5,000 unit Q8HR MELVIN Administration Heparin Sodium (Porcine) 50 unit 02/02/22 00:45 02/11/22 08:14 Heparin Flush (Cl/Picc/Mid-Line) 50 Unit/5 Ml Syringe IV 50 unit BID MELVIN Administration NOREPINEPHRINE BITARTRATE/D5W 4 mg in 250 mls @ 30 mls/hr 01/31/22 07:09 02/01/22 02:48 Levophed IV 0 mcg/min TITRATE MELVIN 0 mls/hr Titration Protocol 8 MCG/MIN dexmedeTOMIDine in 0.9 % NaCL 400 mcg in 100 mls @ 3.655 mls/hr 02/02/22 13:00 02/11/22 07:52 Precedex IV 1.2 mcg/kg/hr TITRATE MELVIN 21.93 mls/hr Administration Protocol 0.2 MCG/KG/HR Doxycycline Hyclate 100 mg/ 100 mls @ 100 mls/hr 02/04/22 15:30 02/11/22 07:27 Sodium Chloride IV 02/11/22 15:29 Infused Q12H MELVIN Infusion Loperamide HCl 4 mg 02/03/22 03:17 02/03/22 03:51 Loperamide 2 Mg Capsule PO 4 mg PRN PRN Administration Diarrhea Multivitamins 1 tab 01/31/22 09:00 02/11/22 08:13 Multivitamin 1 Tablet PO 1 tab DAILY MELVIN Administration Nicotine 14 mg 01/31/22 09:00 02/11/22 08:13 Nicotine 14 Patch TOP 14 mg DAILY MELVIN Administration Nystatin 1 applic 02/09/22 18:05 02/11/22 08:14 Nystatin Cream 30 Gm TOP 1 applic BID MELVIN Administration Potassium Chloride 20 meq 02/06/22 10:12 02/11/22 08:12 Potassium Chloride 20 Meq/15 Ml Udc TUBE 20 meq BIDWM MELVIN Administration Pregabalin 150 mg 02/05/22 21:00 02/11/22 08:12 Pregabalin 75 Mg Capsule PO 150 mg BID MELVIN Administration Quetiapine Fumarate 50 mg 02/10/22 21:00 02/10/22 20:46 Quetiapine 25 Mg Tablet PO 50 mg BEDTIME MELVIN Administration Venlafaxine HCl 37.5 mg 02/02/22 21:00 02/11/22 08:13 Venlafaxine 37.5 Mg Tablet PO 37.5 mg BID MELVIN Administration Objective Ventilator Parameters: Ventilator Settings Pressure Control 15 FiO2 30 CPAP Pressure Amount 5 RT Vent Frequency 16 Ventilator Tidal Volume 370 Exhaled Vt/kg IBW 6 Positive End Expiratory 5 Pressure Ventilator Pressure Support 5 Inspiratory Phase Time 0.75 I:E Ratio 1:4 Patient Position HOB >= 30 degrees Labs Result Diagrams: 02/11/22 03:45 02/11/22 03:45 Labs: Laboratory Results - last 24 hr 02/10/22 02/11/22 02/11/22 16:50 03:45 03:45 WBC 18.6 H RBC 2.40 L Hgb 7.5 L Hct 23.7 L MCV 99.0 MCH 31.4 MCHC 31.7 RDW 15.0 H Plt Count 433 H Neut % (Auto) 86.6 H Lymph % (Auto) 7.1 L [place] % (Auto) 4.9 Eos % (Auto) 0.2 L Baso % (Auto) 1.2 Neut # (Auto) 53421 H Lymph # (Auto) 1300 [place] # (Auto) 900 Eos # (Auto) 0 Baso # (Auto) 200 H ABG pH ABG pCO2 ABG pO2 ABG HCO3 ABG Total CO2 ABG O2 Saturation ABG Base Excess FiO2 Sodium 146 H Potassium 3.7 Chloride 110 H Carbon Dioxide 30 BUN 35 H Creatinine 0.63 Estimated GFR > 60 BUN/Creatinine Ratio 55.6 H Glucose 139 H Calcium 8.1 L Magnesium 2.0 Total Bilirubin 0.3 AST 38 H ALT 48 H Alkaline Phosphatase 86 Total Protein 5.1 L Albumin 2.3 L Globulin 2.8 Albumin/Globulin Ratio 0.8 L Fluid Color Yellow Fluid Appearance Hazy Fluid RBC 4844 Fld Tot Nucleated Cell 1686 Fluid Polynuclear WBCs 86 Fluid Mononuclear WBCs 14 Fluid Eosinophils 0 Fluid Other Cells 0 Body Fluid Clot No clots present 02/11/22 10:09 WBC RBC Hgb Hct MCV MCH MCHC RDW Plt Count Neut % (Auto) Lymph % (Auto) [place] % (Auto) Eos % (Auto) Baso % (Auto) Neut # (Auto) Lymph # (Auto) [place] # (Auto) Eos # (Auto) Baso # (Auto) ABG pH 7.33 L ABG pCO2 63.6 H* ABG pO2 77 L ABG HCO3 33 H ABG Total CO2 35 H ABG O2 Saturation 94 L ABG Base Excess 7.0 H FiO2 30 Sodium Potassium Chloride Carbon Dioxide BUN Creatinine Estimated GFR BUN/Creatinine Ratio Glucose Calcium Magnesium Total Bilirubin AST ALT Alkaline Phosphatase Total Protein Albumin Globulin Albumin/Globulin Ratio Fluid Color Fluid Appearance Fluid RBC Fld Tot Nucleated Cell Fluid Polynuclear WBCs Fluid Mononuclear WBCs Fluid Eosinophils Fluid Other Cells Body Fluid Clot Exam Vital Signs (past 8 hours): - 02/11/22 04:00 02/11/22 04:00 02/11/22 04:00 Temperature 98.3 F Pulse Rate 74 Respiratory Rate 16 Blood Pressure 108/55 L Pulse Oximetry 100 100 Oxygen Delivery Method Mechanical Ventilation Oxygen Flow Rate 35 02/11/22 05:00 02/11/22 05:00 02/11/22 05:00 Temperature Pulse Rate 72 Respiratory Rate 17 Blood Pressure 112/56 L Pulse Oximetry 100 Oxygen Delivery Method Mechanical Ventilation Oxygen Flow Rate 35 02/11/22 06:00 02/11/22 06:00 02/11/22 07:00 Temperature Pulse Rate 81 105 H Respiratory Rate 20 27 H Blood Pressure 121/60 Pulse Oximetry 98 96 Oxygen Delivery Method Oxygen Flow Rate 35 02/11/22 07:01 02/11/22 07:01 02/11/22 08:00 Temperature Pulse Rate 105 H Respiratory Rate 33 H Blood Pressure 160/67 H 166/74 H Pulse Oximetry 96 Oxygen Delivery Method Oxygen Flow Rate 02/11/22 08:00 02/11/22 08:00 02/11/22 08:37 Temperature Pulse Rate 105 H Respiratory Rate 31 H Blood Pressure Pulse Oximetry 97 98 100 Oxygen Delivery Method Mechanical Ventilation Oxygen Flow Rate 02/11/22 09:00 02/11/22 09:00 02/11/22 10:00 Temperature 98.0 F Pulse Rate 109 H Respiratory Rate 24 Blood Pressure 172/73 H 140/67 Pulse Oximetry 99 Oxygen Delivery Method Oxygen Flow Rate 02/11/22 10:00 02/11/22 09:00 Temperature Pulse Rate 107 H Respiratory Rate 19 Blood Pressure Pulse Oximetry 99 Oxygen Delivery Method Mechanical Ventilation Oxygen Flow Rate Fraction of Inspired Oxygen 35 SaO2/FiO2 Ratio 254 Oxygen Delivery Method Mechanical Ventilation Oxygen Flow Rate 35 Narrative Exam Narrative: Intubated. Sedated but following commands Assessment & Plan Assessment and plan (1) Acute respiratory failure with hypoxia and hypercapnia: Status: Acute (2) Acute respiratory failure due to COVID-19: Status: Acute (3) Pneumonia: Status: Acute (4) Alcohol dependence: Qualifiers: Substance use status: uncomplicated Qualified Code(s): F10.20 - Alcohol dependence, uncomplicated Status: Acute (5) Pleural effusion: Status: Acute Assessment & Plan narrative: NEURO: # Acute encephalopathy, improving. Now passing SAT -- On precedex gtt, would wean down to more low-moderate dosing if able -- Daily SAT -- RASS goal -1 to 0 -- Seek early mobility -- Seroquel QHS -- Continue home Venlafaxine # Alcohol abuse. Withdrawal episode resolved -- On thiamine, folic acid, and MTV -- On seizure precaution CARD: No acute issues. Off pressors for >24 hours -- Would DC CVC, ensure adequate PIV RESP: # Acute hypoxemic respiratory failure -- Intubated and sedated -- Secondary to PNA -- SBT ongoing currently. -- Pending cuff leak, VC, blood gas, CXR; possible extubation today -- HOB elevation -- Aspiration precaution -- Goal SpO2 > 88% # Right pleural effusion, loculated on US. -- R chest tube to -20 suction -- Continue to monitor output. -- Daily CXR while chest tube in place -- Follow up pleural studies -- Will defer management to surgery for potential intrapleural lytic therapy and decortication. # COPD -- Continue Duonebs, Budesonide GI -- Continue TFs at goal -- Continue famotidine for prophylaxis -- Monitor daily LFTs given slight increase -- Continue Lasix 40 IV BID -- Monitor BMP & Mg Q12H while diuresing -- Avoid nephrotoxins. Monitor Cr HEME: # Anemia -- Secondary to acute sickness and chronic alcoholism causing BM suppression -- Daily CBC -- Goal Hb > 7 ID: # COVID PNA -- s/p Decadron 10 day course -- On contact, airborne, and droplet precautions # Severe sepsis, Pneumonia -- Has completed antibiotic course ENDO: -- Goal BS < 180 -- Accucheck every 6 hours VTE PPX: Hep SQ D/w RN, RT and family at bedside Time Spent With Patient Critical Care time: I spent a total of [] minutes of critical care time on this patient's care today; this time is exclusive of procedural time.
--- NOTE | 2022-02-11 11:41 | P.PN_ITS ---
Subjective Subjective Date Patient Seen: 02/11/22 Time Patient Seen: 16:54 Interval history: Patient extubated to 2L today. She is feeling better and is very thankful for her care. Chest tube draining bloody straw colored fluid. Exam Vital Signs (past 8 hours): - 02/11/22 04:00 02/11/22 04:00 02/11/22 04:00 Temperature 98.3 F Pulse Rate 74 Respiratory Rate 16 Blood Pressure 108/55 L Pulse Oximetry 100 100 Oxygen Delivery Method Mechanical Ventilation Oxygen Flow Rate 35 02/11/22 05:00 02/11/22 05:00 02/11/22 05:00 Temperature Pulse Rate 72 Respiratory Rate 17 Blood Pressure 112/56 L Pulse Oximetry 100 Oxygen Delivery Method Mechanical Ventilation Oxygen Flow Rate 35 02/11/22 06:00 02/11/22 06:00 02/11/22 07:00 Temperature Pulse Rate 81 105 H Respiratory Rate 20 27 H Blood Pressure 121/60 Pulse Oximetry 98 96 Oxygen Delivery Method Oxygen Flow Rate 35 02/11/22 07:01 02/11/22 07:01 02/11/22 08:00 Temperature Pulse Rate 105 H Respiratory Rate 33 H Blood Pressure 160/67 H 166/74 H Pulse Oximetry 96 Oxygen Delivery Method Oxygen Flow Rate 02/11/22 08:00 02/11/22 08:00 02/11/22 08:37 Temperature Pulse Rate 105 H Respiratory Rate 31 H Blood Pressure Pulse Oximetry 97 98 100 Oxygen Delivery Method Mechanical Ventilation Oxygen Flow Rate 02/11/22 09:00 02/11/22 09:00 02/11/22 10:00 Temperature 98.0 F Pulse Rate 109 H Respiratory Rate 24 Blood Pressure 172/73 H 140/67 Pulse Oximetry 99 Oxygen Delivery Method Oxygen Flow Rate 02/11/22 10:00 02/11/22 09:00 Temperature Pulse Rate 107 H Respiratory Rate 19 Blood Pressure Pulse Oximetry 99 Oxygen Delivery Method Mechanical Ventilation Oxygen Flow Rate Fraction of Inspired Oxygen 35 SaO2/FiO2 Ratio 254 Oxygen Delivery Method Mechanical Ventilation Oxygen Flow Rate 35 Narrative Exam Narrative: GEN:? Ill-appearing middle-aged female, on 2L NC, hoarse voice CV: tachycardic, regular no m/r/g. PULM: RLL improved decreased breath sounds ABD: Soft, NT, mild distension EXTR: warm, poor skin both legs with dry plantar feet, left third toe amputation, trace edema lower and upper extremities. NEURO:?alert and oriented, no focal deficits Objective Labs Result Diagrams: 02/11/22 03:45 02/11/22 03:45 Labs: Laboratory Results - last 24 hr 02/10/22 02/11/22 02/11/22 16:50 03:45 03:45 WBC 18.6 H RBC 2.40 L Hgb 7.5 L Hct 23.7 L MCV 99.0 MCH 31.4 MCHC 31.7 RDW 15.0 H Plt Count 433 H Neut % (Auto) 86.6 H Lymph % (Auto) 7.1 L [place] % (Auto) 4.9 Eos % (Auto) 0.2 L Baso % (Auto) 1.2 Neut # (Auto) 56528 H Lymph # (Auto) 1300 [place] # (Auto) 900 Eos # (Auto) 0 Baso # (Auto) 200 H ABG pH ABG pCO2 ABG pO2 ABG HCO3 ABG Total CO2 ABG O2 Saturation ABG Base Excess FiO2 Sodium 146 H Potassium 3.7 Chloride 110 H Carbon Dioxide 30 BUN 35 H Creatinine 0.63 Estimated GFR > 60 BUN/Creatinine Ratio 55.6 H Glucose 139 H Calcium 8.1 L Magnesium 2.0 Total Bilirubin 0.3 AST 38 H ALT 48 H Alkaline Phosphatase 86 Total Protein 5.1 L Albumin 2.3 L Globulin 2.8 Albumin/Globulin Ratio 0.8 L Fluid Color Yellow Fluid Appearance Hazy Fluid RBC 4844 Fld Tot Nucleated Cell 1686 Fluid Polynuclear WBCs 86 Fluid Mononuclear WBCs 14 Fluid Eosinophils 0 Fluid Other Cells 0 Body Fluid Clot No clots present 02/11/22 10:09 WBC RBC Hgb Hct MCV MCH MCHC RDW Plt Count Neut % (Auto) Lymph % (Auto) [place] % (Auto) Eos % (Auto) Baso % (Auto) Neut # (Auto) Lymph # (Auto) [place] # (Auto) Eos # (Auto) Baso # (Auto) ABG pH 7.33 L ABG pCO2 63.6 H* ABG pO2 77 L ABG HCO3 33 H ABG Total CO2 35 H ABG O2 Saturation 94 L ABG Base Excess 7.0 H FiO2 30 Sodium Potassium Chloride Carbon Dioxide BUN Creatinine Estimated GFR BUN/Creatinine Ratio Glucose Calcium Magnesium Total Bilirubin AST ALT Alkaline Phosphatase Total Protein Albumin Globulin Albumin/Globulin Ratio Fluid Color Fluid Appearance Fluid RBC Fld Tot Nucleated Cell Fluid Polynuclear WBCs Fluid Mononuclear WBCs Fluid Eosinophils Fluid Other Cells Body Fluid Clot PFSH Medical History Alcohol dependence Anemia Anxiety Chronic back pain (~2013) COVID-19 virus infection Degenerative joint disease (DJD) of lumbar spine (~1975) Hyperlipidemia Hypertension Osteoarthritis (~2013) Pneumonia Rheumatoid arthritis (~2009) Scoliosis (~1975) Tobacco dependence Surgical History Anesthesia History of amputation of toe (~2018) History of incision and drainage (03/19/20) Status post left foot surgery (08/23/20) Family History Father Cancer Hypertension Hyperlipidemia Mother Hypertension Brother Testicular cancer Hypertension Brother Diabetes mellitus Hypertension Hyperlipidemia Social History household members: significant other and family Smoking Status: Current every day smoker Tobacco: How many years used: 40 quit status: quit date established (September 08 2020) second hand exposure: No alcohol intake: current substance use type: does not use Assessment & Plan Assessment & Plan narrative: 1. Acute hypoxic respiratory failure, impr -secondary to MSSA, MRSA bacterial pneumonia with parapneumonic effusion. -minimize sedation, currently on Precedex only -ultrasound thoracentesis of right pleural effusion on 02/08 consistent with loculated pleural effusion, general surgery placed chest tube -chest tube draining straw colored fluid, likely due to parapneumonic effusion over empyema 2. COVID pneumonia with superimposed bacterial pneumonia secondary to MRSA, MSSA with empyema. -continued steroid and remdesivir through 02/09/2022 to complete 10 day course (methylprednisolone switched back to dexamethasone by tele ICU) -doxycycline and ceftriaxone IV for MRSA and MSSA in sputum, WBC increasing likely due to empyema. -persistent elevated WBC noted and may represent stress demargination, steroid or empyema, favor empyema with loculated appearance on ultrasound. -bedside ultrasound 02/08/22 with loculated pleural effusion, discussed with general surgery. Awaiting chest tube placement. Also attempted transfer for cardiothoracic surgery however there are no current available beds. 3. E coli urinary infection, present on admission -complete 1 week course of Rocephin through 02/10/2022 4. Acute alcohol withdrawal and metabolic encephalopathy -continued delirium, managed with Precedex and Seroquel 25 mg bid initially reduce to 25 mg nightly today. -had been difficult to control initially with multiple sedatives trialed including propfol which caused hypertriglyceridemia. -appreciate tele-camelid fiber sorter consultation. -she remains slow to recover, not reliably following commands this AM but remains on some precedex. Suspect empyema is contributing to continued encephalopathy, but if no significant improvement over the coming days consider head CT or if able to be extubated MRI. 5. Septic shock, resolved -due to pneumonia and acute cystitis (secondary to MSSA and MRSA based on sputum cultures, urinary infection with E. coli). -prior cultures staph epidermidis blood culture - likely contaminant 6. PAUL, present on admission, resolved 7. Tobacco dependence -nicotine patch 8. History of rheumatoid arthritis Tubes/lines: Right IJ - placed 01/31 PIV LFA- placed 02/04 Mari cath - placed 01/31 ETT- placed 01/31? FEN: Pivot 1.5 at 10 cc/hr--camelid fiber sorter has approved gradual titration up to a max of 40 cc/hour.? This will hopefully improve her nutritional status and low albumin state Code status Full Prophylaxis On heparin and famotidine Disposition ICU Time Spent With Patient Critical Care time: 40 minutes I spent a total of [> 30] minutes of critical care time on this patient's care today; this time is exclusive of procedural time. Time Spent With Patient Critical Care time: I spent a total of [] minutes of critical care time on this patient's care today; this time is exclusive of procedural time.
--- NOTE | 2022-02-11 13:28 | RT ---
PT EXTUBATED PER WRITTEN DR. ORDER. PT PLACED ON 2 LPM N/C. O2 SAT NOTED AT 98%. NO RESPIRATORY DISTRESS NOTED.
--- NOTE | 2022-02-11 13:30 | RT ---
NO STRIDOR NOTED POST EXTUBATION.
[2022-02-11] MEDS: FUROSEMIDE 40 MG/4 ML VIAL IV (13:39)
--- NOTE | 2022-02-11 14:32 | DIET.CONS2 ---
Dietary Inpatient Consultation Note Admission Date: 01/30/2022 14:10 Pt extubated, pt no longer requires nutrition support. Pt remains NPO until cleared by speech therapy for diet. Tube Feed diet discontinued. Diet: 01/31/22 04:49 NPO Diet Diet Modifications: NPO Type: Strict Nutrition Type of Feeding Tube NG/OG 02/11/22 08:00 Type of Feeding Tube NG/OG 02/10/22 08:00 Type of Feeding Tube NG/OG 02/10/22 00:55 Electronically Signed by: Aubrie Mendoza 02/11/22 14:32 Clinical Dietitian [address] [id number]
--- NOTE | 2022-02-11 17:53 | SLP.IPNOTE ---
order received. Will evaluate pt's swallowing in the morning (02/12/22)
[2022-02-11] MEDS: dexmedeTOMIDine in 0.9 % NaCL 400 MCG/100 ML PLAST..BAG 14.62 MCG IV (17:57)
--- NOTE | 2022-02-11 18:45 | PC.NURSE ---
Day Shift Patient on CPAP trial by 0830 this AM, alert and tracking, following commands. Multi-disciplinary rounds done at bedside. ABG, CXR, VC, cuff leak all done and reported to Dr. Kraft and Dr. Beckman. Decision made to extubate and order received to extubate. Extubated to 2L NC, SpO2 96-98%. Pt with strong cough, managing secretions. Alert and responding appropriately. Restraints removed when extubated. Pt very weak but working to move all extremities in bed. Precedex at 0.8 mcg/kg/hr. Off COVID precautions per Dr. Beckman. Taking mouth swabs and trialed on ice chips - doing well and taking ice chips without issue. at bedside.
--- NOTE | 2022-02-11 20:45 | PM.ICURNDS ---
- :: This patient was seen via real time interactive two-way audiovisual telecommunication. patient remains extubated, chest tube in place - likely parapneumonic effusion , ldh and fluid protein not available yet. cont current abx , o2 via NC, patietn mental status usbtanitally imrpoved. would plan for downgrade tomorrow
[2022-02-11] MEDS: QUETIAPINE 25 MG TABLET 50 MG PO (21:09)
[2022-02-11 21:31] LABS: BUN Creatinine Ratio 39.1 (6-22); Blood Urea Nitrogen 27 mg/dL (7-17); Calcium 8.1 mg/dL (8.4-10.2); Carbon Dioxide 36 mmol/L (22-32); Chloride 106 mmol/L (98-107); Estimated Glomerular Filt Rate > 60 mL/min (>60); Glucose 101 mg/dL (80-110); HEMOLYSIS < 15 (0-50); Magnesium 1.8 mg/dL (1.6-2.3); Potassium 3.2 mmol/L (3.4-5.1); Sodium 146 mmol/L (137-145)
[2022-02-12] VITALS (25 sets, daily range): BP systolic 111–135; BP diastolic 54–62; PULSE 82–124; RESP 11–37; TEMP 36.6–36.9; O2SAT 86–100
[2022-02-12] MEDS: FUROSEMIDE 40 MG/4 ML VIAL IV ×2 (00:09→12:12)
[2022-02-12] MEDS: dexmedeTOMIDine in 0.9 % NaCL 400 MCG/100 ML PLAST..BAG 14.62 MCG IV ×2 (00:09→06:04)
[2022-02-12] MEDS: fentaNYL 100 MCG/2 ML INJ 50 MCG IV (04:03)
[2022-02-12] MEDS: HEPARIN 5,000 UNIT/ML VIAL 5000 UNIT SUBCUT ×3 (06:03→22:02)
--- NOTE | 2022-02-12 06:14 | PC.NURSE ---
Manager Process Note-Patient oriented x3, speech is hoarse and sometimes mumbles, can make needs known, took HS med with sips, has tolerated ice chips. SpO2 >96% on 1.5L NC, CT patent to 20cm sx, no leaks, no drainage. Precedex at 0.8mcg/kg/hr throughout night, IV Fentanyl given for pain per prn order. 2250ml total UOP, still receiving IV Lasix BID.
[2022-02-12] MEDS: BUDESONIDE 0.5 MG/2 ML NEB INH ×2 (08:43→19:31)
[2022-02-12] MEDS: ALBUTEROL/IPRATROPIUM 3 ML AMPUL INH ×5 (08:43→23:00)
[2022-02-12] MEDS: POTASSIUM CHLORIDE 20 MEQ TAB PO ×2 (08:52→18:18)
[2022-02-12] MEDS: VENLAFAXINE 37.5 MG TABLET PO ×2 (08:52→20:04)
[2022-02-12] MEDS: FAMOTIDINE 20 MG/2 ML VIAL IV ×2 (08:52→20:04)
[2022-02-12] MEDS: NICOTINE 14 PATCH 14 MG TOP (08:53)
[2022-02-12] MEDS: MULTIVITAMIN 1 TABLET 1 TAB PO (08:53)
[2022-02-12] MEDS: PREGABALIN 75 MG CAPSULE 150 MG PO ×2 (08:53→22:02)
[2022-02-12] MEDS: FOLIC ACID 1 MG TABLET PO (08:53)
[2022-02-12] MEDS: NYSTATIN CREAM 30 GM 1 APPLIC TOP ×2 (08:55→22:03)
--- NOTE | 2022-02-12 09:09 | DI.RAD.S_ITS ---
PROCEDURE: XR CHEST 1V INDICATIONS: f/u chest tube TECHNIQUE: One view of the chest was acquired. COMPARISON: [facility], , XR CHEST 1V, 02/11/2022, 10:30. FINDINGS: Surgical changes and devices: Right-sided thoracostomy tube remains in place. Right jugular central venous catheter is also unchanged in positioning. Nasogastric tube and enteric tube have been removed. Lungs and pleura: No definite pneumothorax visualized. Dense right lower lung zone consolidation is not significantly changed. Suspected small right pleural effusion. Streaky right mid lung zone opacities not significantly changed. Left lung appears clear. Mediastinum: Mediastinal contours appear stable. Heart size is enlarged. Bones and chest wall: No suspicious bony lesions. Overlying soft tissues appear unremarkable. IMPRESSION: Stable positioning of right sided chest tube and right central venous catheter. Persistent right lower lung zone consolidation compatible with pneumonia. No pneumothorax visualized. Dictated by: Gurpreet Butts M.D. on 02/12/2022 at 10:08 Approved by: Gurpreet Butts M.D. on 02/12/2022 at 10:10
--- NOTE | 2022-02-12 09:10 | P.PN_ITS ---
Subjective Subjective Date Patient Seen: 02/12/22 Time Patient Seen: 09:10 Interval history: Patient doing well today, minimal pain with R chest tube still in place to suction. She denies chest pain, nausea, vomiting abdominal pain. She is hungry, passed bedside swallow with nursing. Remains on precedex this morning. Exam Vital Signs (past 8 hours): - 02/12/22 02:00 02/12/22 02:00 02/12/22 03:00 Temperature Pulse Rate 92 H Respiratory Rate 15 Blood Pressure 129/60 124/60 Pulse Oximetry 97 Oxygen Delivery Method Oxygen Flow Rate 1.5 02/12/22 03:00 02/12/22 04:00 02/12/22 04:00 Temperature 97.8 F Pulse Rate 96 H 102 H Respiratory Rate 30 H 23 Blood Pressure 120/57 L Pulse Oximetry 98 97 Oxygen Delivery Method Oxygen Flow Rate 1.5 1.5 02/12/22 04:00 02/12/22 04:00 02/12/22 05:00 Temperature Pulse Rate Respiratory Rate Blood Pressure 126/58 L Pulse Oximetry 98 Oxygen Delivery Method Nasal Cannula Nasal Cannula Oxygen Flow Rate 1.5 1.5 02/12/22 05:00 02/12/22 08:43 Temperature Pulse Rate 94 H 97 H Respiratory Rate 19 16 Blood Pressure Pulse Oximetry 97 99 Oxygen Delivery Method Oxygen Flow Rate Fraction of Inspired Oxygen 24 SaO2/FiO2 Ratio 408 Oxygen Delivery Method Nasal Cannula Oxygen Flow Rate 1.5 Narrative Exam Narrative: GEN:? Ill-appearing middle-aged female, on 2L NC, hoarse voice CV: RRR with no m/r/g. PULM: RLL improved decreased breath sounds, rhochi RLL ABD: Soft, NT, mild distension EXTR: warm, poor skin both legs with dry plantar feet, left third toe amputatio n, trace edema bilateral upper extremities, and RLE moreso than left. NEURO:?alert and oriented, no focal deficits Objective Labs Result Diagrams: 02/11/22 03:45 02/11/22 21:00 Labs: Laboratory Results - last 24 hr 02/10/22 02/11/22 02/11/22 16:50 10:09 21:00 ABG pH 7.33 L ABG pCO2 63.6 H* ABG pO2 77 L ABG HCO3 33 H ABG Total CO2 35 H ABG O2 Saturation 94 L ABG Base Excess 7.0 H FiO2 30 Sodium 146 H Potassium 3.2 L Chloride 106 Carbon Dioxide 36 H BUN 27 H Creatinine 0.69 Estimated GFR > 60 BUN/Creatinine Ratio 39.1 H Glucose 101 Calcium 8.1 L Magnesium 1.8 Ref Test (Refrig) Comment [facility] Medical History Alcohol dependence Anemia Anxiety Chronic back pain (~2013) COVID-19 virus infection Degenerative joint disease (DJD) of lumbar spine (~1975) Hyperlipidemia Hypertension Osteoarthritis (~2013) Pneumonia Rheumatoid arthritis (~2009) Scoliosis (~1975) Tobacco dependence Surgical History Anesthesia History of amputation of toe (~2018) History of incision and drainage (03/19/20) Status post left foot surgery (08/23/20) Family History Father Cancer Hypertension Hyperlipidemia Mother Hypertension Brother Testicular cancer Hypertension Brother Diabetes mellitus Hypertension Hyperlipidemia Social History household members: significant other and family Smoking Status: Current every day smoker Tobacco: How many years used: 40 quit status: quit date established (September 08 2020) second hand exposure: No alcohol intake: current substance use type: does not use Assessment & Plan Assessment & Plan narrative: 1. Acute hypoxic respiratory failure, improving -secondary to MSSA, MRSA bacterial pneumonia with parapneumonic effusion. -minimize sedation, currently on Precedex only -ultrasound thoracentesis of right pleural effusion on 02/08 consistent with loculated pleural effusion, general surgery placed chest tube on 02/10 -chest tube draining straw colored fluid, likely due to parapneumonic effusion over empyema, continue management per surgical service. -ordered repeat CXR for today. 2. COVID pneumonia with superimposed bacterial pneumonia secondary to MRSA, MSSA with empyema. -continued steroid and remdesivir through 02/09/2022 to complete 10 day course ( methylprednisolone switched back to dexamethasone by [facility] ICU) -doxycycline and ceftriaxone IV for MRSA and MSSA in sputum, WBC increase likely due to effusion now improving after chest tube placement. Based on cultures, will change to oral doxycycline only today 02/12 which covers both her MRSA and M SSA. Doxycycline course probably best to continue 7 days after chest tube placement given parapneumonic effusion that was drained which would be until 02/18/22. -bedside ultrasound 02/08/22 with loculated pleural effusion, discussed with general surgery. Chest tube placed 02/10. Also attempted transfer for cardiothoracic surgery however there are no current available beds. 3. E coli urinary infection, present on admission -completed 1 week course of Rocephin through 02/10/2022 4. Acute alcohol withdrawal and metabolic encephalopathy -continued delirium, managed with Precedex and Seroquel 25 mg bid initially reduced to 25 mg nightly only. -had been difficult to control initially with multiple sedatives trialed including propfol which caused hypertriglyceridemia. -appreciate tele-skiver operator consultation. -she is improving after chest tube placement, and is much improved today after extubation but remains on precedex. Continue to titrate off precedex infusion -restart home nortriptlyine and venlafaxine with lyrica as well, withdrawal from many of her home medications may have prolonged encephalopathy. 5. Septic shock, resolved -due to pneumonia and acute cystitis (secondary to MSSA and MRSA based on sputum cultures, urinary infection with E. coli). -prior cultures staph epidermidis blood culture - likely contaminant -continues on 6. PAUL, present on admission, resolved - secondary to septic shock 7. Tobacco dependence -nicotine patch 8. History of rheumatoid arthritis Tubes/lines: Right IJ - placed 01/31, try to remove today 02/12 Mari cath - placed 01/31 ETT- placed 01/31, extubated on 02/11/22 FEN: Advance to regular diet this AM, no longer on tube feeding. Code status Full Prophylaxis On heparin and famotidine Disposition ICU, stable for regular floor when off of precedex infusion, PT/OT to start once chest tube can be removed. Time Spent With Patient Critical Care time: 35 minutes I spent a total of [> 30] minutes of critical care time on this patient's care today; this time is exclusive of procedural time. Time Spent With Patient Critical Care time: I spent a total of [] minutes of critical care time on this patient's care today; this time is exclusive of procedural time.
--- NOTE | 2022-02-12 09:41 | P.TELICUPN_ITS ---
Subjective Subjective IF CAMERA ACTIVATED, patient seen via real-time interactive audiovisual communication: Camera activated Consent obtained for tele-biodiesel technology manager care: Yes Patient Location: ICU Provider location (State): [place] Other participants/roles: RN, Family Subjective Interval history: Extubated yesterday. On NC overnight. No output from R chest tube. No new im aging/labs this morning. Pleural fluid studies are still pending, gram stain is negative and culture is NGTD Current Medications Current Medications Medications: Home Medications leflunomide 20 mg tablet 20 mg PO DAILY #90 tabs 12/04/20 [Rx Confirmed 01/30/22] colchicine 0.6 mg capsule See Rx Instructions .Route .COMPLEX #180 caps 12/31/20 [Rx Confirmed 01/30/22] atorvastatin 20 mg tablet 20 mg PO DAILY #90 tabs 08/20/21 [Rx Confirmed 01/30/22] hydrochlorothiazide 25 mg tablet 25 mg PO DAILY #90 tabs 08/20/21 [Rx Confirmed 01/30/22] metoprolol tartrate 50 mg tablet 50 mg PO BID #180 tabs 08/20/21 [Rx Confirmed 01/30/22] nortriptyline 50 mg capsule 50 mg PO DAILY #90 caps 08/20/21 [Rx Confirmed 01/30/22] pregabalin 150 mg capsule 150 mg PO BID #180 caps 08/20/21 [Rx Confirmed 01/30/22] venlafaxine 37.5 mg capsule,extended release 24 hr 37.5 mg PO 2XD 01/30/22 [History Confirmed 01/30/22] Visit Medications (administered) Generic Name Dose Route Start Last Admin Trade Name Freq PRN Reason Stop Dose Admin Albuterol 2.5 mg 01/30/22 16:37 02/05/22 01:38 Albuterol 2.5 Mg/3 Ml Neb (Adult) INH 2.5 mg [id number] PRN Administration Shortness Of Breath Albuterol/Ipratropium 3 ml 01/30/22 19:00 02/12/22 08:43 Albuterol/Ipratropium 3 Ml Ampul INH 3 ml [id number] MELVIN Administration Budesonide 0.5 mg 02/03/22 20:00 02/12/22 08:43 Budesonide 0.5 Mg/2 Ml Neb INH 0.5 mg RTBID MELVIN Administration Famotidine 20 mg 02/01/22 10:45 02/12/22 08:52 Famotidine 20 Mg/2 Ml Vial IV 20 mg BID MELVIN Administration Fentanyl 50 mcg 02/09/22 16:23 02/12/22 04:03 Fentanyl 100 Mcg/2 Ml Inj IV 50 mcg Q2H PRN Administration Pain, Severe (7-10) Folic Acid 1 mg 01/31/22 09:00 02/12/22 08:53 Folic Acid 1 Mg Tablet PO 1 mg DAILY MELVIN Administration Furosemide 40 mg 02/10/22 12:00 02/12/22 00:09 Furosemide 40 Mg/4 Ml Vial IV 40 mg Q12H MELVIN Administration Heparin Sodium (Porcine) 5,000 unit 01/31/22 06:00 02/12/22 06:03 Heparin 5,000 Unit/Ml Vial SUBCUT 5,000 unit Q8HR MELVIN Administration Heparin Sodium (Porcine) 50 unit 02/02/22 00:45 02/12/22 08:54 Heparin Flush (Cl/Picc/Mid-Line) 50 Unit/5 Ml Syringe IV 50 unit BID MELVIN Administration dexmedeTOMIDine in 0.9 % NaCL 400 mcg in 100 mls @ 3.655 mls/hr 02/02/22 13:00 02/12/22 06:04 Precedex IV 0.8 mcg/kg/hr TITRATE MELVIN 14.62 mls/hr Administration Protocol 0.2 MCG/KG/HR Loperamide HCl 4 mg 02/03/22 03:17 02/03/22 03:51 Loperamide 2 Mg Capsule PO 4 mg PRN PRN Administration Diarrhea Multivitamins 1 tab 01/31/22 09:00 02/12/22 08:53 Multivitamin 1 Tablet PO 1 tab DAILY MELVIN Administration Nicotine 14 mg 01/31/22 09:00 02/12/22 08:53 Nicotine 14 Patch TOP 14 mg DAILY MELVIN Administration Nystatin 1 applic 02/09/22 18:05 02/12/22 08:55 Nystatin Cream 30 Gm TOP 1 applic BID MELVIN Administration Potassium Chloride 20 meq 02/12/22 09:00 02/12/22 08:52 Potassium Chloride 20 Meq Tab PO 20 meq BIDWM MELVIN Administration Pregabalin 150 mg 02/05/22 21:00 02/12/22 08:53 Pregabalin 75 Mg Capsule PO 150 mg BID MELVIN Administration Quetiapine Fumarate 50 mg 02/10/22 21:00 02/11/22 21:09 Quetiapine 25 Mg Tablet PO 50 mg BEDTIME MELVIN Administration Venlafaxine HCl 37.5 mg 02/02/22 21:00 02/12/22 08:52 Venlafaxine 37.5 Mg Tablet PO 37.5 mg BID MELVIN Administration Objective Ventilator Parameters: Ventilator Settings Pressure Control 15 FiO2 30 CPAP Pressure Amount 5 RT Vent Frequency 16 Ventilator Tidal Volume 370 Exhaled Vt/kg IBW 6 Positive End Expiratory 5 Pressure Ventilator Pressure Support 5 Inspiratory Phase Time 0.75 I:E Ratio 1:4 Patient Position HOB >= 30 degrees Labs Result Diagrams: 02/11/22 03:45 02/11/22 21:00 Labs: Laboratory Results - last 24 hr 02/10/22 02/11/22 02/11/22 16:50 10:09 21:00 ABG pH 7.33 L ABG pCO2 63.6 H* ABG pO2 77 L ABG HCO3 33 H ABG Total CO2 35 H ABG O2 Saturation 94 L ABG Base Excess 7.0 H FiO2 30 Sodium 146 H Potassium 3.2 L Chloride 106 Carbon Dioxide 36 H BUN 27 H Creatinine 0.69 Estimated GFR > 60 BUN/Creatinine Ratio 39.1 H Glucose 101 Calcium 8.1 L Magnesium 1.8 Ref Test (Refrig) Comment Exam Vital Signs (past 8 hours): - 02/12/22 02:00 02/12/22 02:00 02/12/22 03:00 Temperature Pulse Rate 92 H Respiratory Rate 15 Blood Pressure 129/60 124/60 Pulse Oximetry 97 Oxygen Delivery Method Oxygen Flow Rate 1.5 02/12/22 03:00 02/12/22 04:00 02/12/22 04:00 Temperature 97.8 F Pulse Rate 96 H 102 H Respiratory Rate 30 H 23 Blood Pressure 120/57 L Pulse Oximetry 98 97 Oxygen Delivery Method Oxygen Flow Rate 1.5 1.5 02/12/22 04:00 02/12/22 04:00 02/12/22 05:00 Temperature Pulse Rate Respiratory Rate Blood Pressure 126/58 L Pulse Oximetry 98 Oxygen Delivery Method Nasal Cannula Nasal Cannula Oxygen Flow Rate 1.5 1.5 02/12/22 05:00 02/12/22 08:43 Temperature Pulse Rate 94 H 97 H Respiratory Rate 19 16 Blood Pressure Pulse Oximetry 97 99 Oxygen Delivery Method Oxygen Flow Rate Fraction of Inspired Oxygen 24 SaO2/FiO2 Ratio 408 Oxygen Delivery Method Nasal Cannula Oxygen Flow Rate 1.5 Narrative Exam Narrative: Awake, alert and conversant. Mild tachypnea. R CT to -20 suction. Assessment & Plan Assessment and plan (1) Acute respiratory failure with hypoxia and hypercapnia: Status: Acute (2) Pneumonia: Status: Acute (3) Pleural effusion: Status: Acute (4) Alcohol dependence: Qualifiers: Substance use status: uncomplicated Qualified Code(s): F10.20 - Alcohol dependence, uncomplicated Status: Acute Assessment & Plan narrative: NEURO: # Acute encephalopathy, improving. Now passing SAT -- On precedex gtt, would wean off -- Seroquel QHS -- Continue home Venlafaxine # Alcohol abuse. Withdrawal episode resolved -- On thiamine, folic acid, and MTV -- On seizure precaution CARD: No acute issues. Off pressors for >24 hours -- Would DC CVC, ensure adequate PIV RESP: # Acute hypoxemic respiratory failure -- Supplemental O2 as needed -- Duonebs, Budesonide -- OOB to chair as able. -- Goal SpO2 > 88% # Right pleural effusion, loculated on US. -- R chest tube to -20 suction -- Continue to monitor output. -- Daily CXR while chest tube in place -- Follow up pleural studies -- Will defer management to surgery for potential intrapleural lytic therapy and decortication. # COPD -- Continue Duonebs, Budesonide GI -- Passed bedside swallow, encourage PO intake -- Continue famotidine for prophylaxis -- Consider repeat LFT given previous uptrend -- Continue Lasix 40 IV BID -- Monitor BMP & Mg Q12H while diuresing -- Avoid nephrotoxins. Monitor Cr HEME: # Anemia -- Secondary to acute sickness and chronic alcoholism causing BM suppression -- Daily CBC -- Goal Hb > 7 ID: # COVID PNA -- s/p Decadron 10 day course -- On contact, airborne, and droplet precautions # Severe sepsis, Pneumonia -- Has completed antibiotic course ENDO: -- Goal BS < 180 -- Accucheck every 6 hours VTE PPX: Hep SQ Appropriate for ICU downgrade when off Precedex. D/w RN, RT and family at bedside Time Spent With Patient Critical Care time: I spent a total of [] minutes of critical care time on this patient's care today; this time is exclusive of procedural time.
[2022-02-12] MEDS: DOXYCYCLINE HYCLATE 100 MG TABLET PO ×2 (09:44→20:04)
[2022-02-12] MEDS: LOPERAMIDE 2 MG CAPSULE 4 MG PO (11:10)
--- NOTE | 2022-02-12 13:28 | DI.US.S_ITS ---
PROCEDURE: US CHEST COMPARISON: [facility], CR, XR CHEST 1V, 02/12/2022, 9:08. [facility], CT, CT CHEST WO CON, 02/06/2022, 10:56. INDICATIONS: RLL; FLUID VS CONSOLIDATION FINDINGS: Trace right pleural effusion. IMPRESSION: Trace right pleural effusion. Dictated by: Dl Jean M.D. on 02/12/2022 at 14:15 Approved by: Dl Jean M.D. on 02/12/2022 at 14:16
--- NOTE | 2022-02-12 13:29 | SLP.IPNOTE ---
SPoke to Dr. Stark re: swallowing eval order. Pt was eating in her room without difficulty. Dr. Stark stated pt did not need ST services. Order completed.
[2022-02-12] MEDS: OXYCODONE IR 5 MG TABLET PO ×2 (13:40→20:04)
--- NOTE | 2022-02-12 14:33 | CM.DPNOTE ---
Addendum entered by GLENN Bray 02/14/22 12:44: ADD: [facility] swing beds are not accepting admissions currently d/t low staffing. [facility] not accepting new referrals until WednesdayFeb 18 Aleah at [facility] said she is willing to review this referral again Wednesday w/her administrative team. [facility] is a barrier, they do not reimburse well unless there can be a carve out. Tracie asks this [facility] [place] [place] team get in touch w/Fidel Lumpia Wrapper Maker Wednesday to inquire about carve out (?) Searching now for contact number for Fidel GRANDA, will plan to email admitting Michaela Contreras in case she has a contact she uses frequently. Cassandra at [facility] says there will be no decisions made re referrals and [facility] until Wednesday when Jane returns. [facility] swing bed CM staff return Wednesday Yg [facility] does not have contract w/[facility] DIAZ- send referral (Wednesday) if Trudy/Yg will consider one time contract? Will plan to discuss the broadening of SNF search ([facility]) with patient and TERRANCE Cerrato today. JENNIFER completed Original Note: DCP Note Patient discussed in multidisciplinary rounds. Patient much improved, advancing to regular diet today; Dr Stark anticipates patient can begin moving w/therapies upon removal of chest tube (placed 1/3 by general surgery) DCP efforts: SNF choices given by KEL[facility] Cochran and Yg both do not accept [facility] Referrals sent to Swing beds and SNFs: [facility], [facility], [facility] Kimmy Cagle does not accept [facility]. Now learned that [facility] does not accept [facility] Following closely for coordination of safe DCP. [facility] will be a barrier to securing SNF. back up plan will need to b e home w/family and HH ([facility]??) CANDI
--- NOTE | 2022-02-12 19:15 | PC.NURSE ---
1600 Chest tube dressing saturated with serous drainage. Dressing removed and clean dry dressing replaced. Chest Tube taped secure.
[2022-02-12] MEDS: QUETIAPINE 25 MG TABLET 50 MG PO (20:04)
[2022-02-12] MEDS: SODIUM CHLORIDE 0.9% FLUSH 10 ML IV (20:04)
[2022-02-13] VITALS (33 sets, daily range): BP systolic 106–121; BP diastolic 55–66; PULSE 91–124; RESP 14–53; TEMP 36.2–38.4; O2SAT 88–99
[2022-02-13] MEDS: FUROSEMIDE 40 MG/4 ML VIAL IV (00:45)
[2022-02-13] MEDS: SODIUM CHLORIDE 0.9% FLUSH 10 ML IV ×3 (00:46→21:07)
[2022-02-13] MEDS: HEPARIN 5,000 UNIT/ML VIAL 5000 UNIT SUBCUT ×3 (05:48→21:10)
[2022-02-13] MEDS: OXYCODONE IR 5 MG TABLET PO ×2 (05:49→19:47)
[2022-02-13 05:57] LABS: Add Manual Diff / Slide Review NO; Basophils Absolute Auto 100 /uL (0-100); Basophils Percent Auto 0.8 % (0-2); Eosinophils Absolute Auto 300 /uL (0-450); Eosinophils Percent Auto 1.7 % (2-4); Hematocrit 27.4 % (36-46); Hemoglobin 8.8 g/dL (12.0-16.0); Lymphocytes Absolute Auto 2100 /uL (1100-4500); Mean Corpuscular Hemoglobin 30.6 PG (26-34); Mean Corpuscular Volume 95.7 fL (80-100); Monocytes Absolute Auto 800 /uL (0-900); Monocytes Percent Auto 5.1 % (3-14); Neutrophils Absolute Auto 12800 /uL (1500-7000); Neutrophils Percent Auto 79.4 % (50-75); Platelet Count 471 X10^3/uL (150-400); Red Blood Cell Count 2.86 X10^6/uL (4.0-5.2); Red Cell Distribution Width 14.7 % (11.6-14.8); White Blood Cell Count 16.1 X10^3/uL (4.5-11.0)
[2022-02-13 06:01] LABS: BUN Creatinine Ratio 27.6 (6-22); Blood Urea Nitrogen 21 mg/dL (7-17); Calcium 7.8 mg/dL (8.4-10.2); Chloride 93 mmol/L (98-107); Estimated Glomerular Filt Rate > 60 mL/min (>60); Glucose 98 mg/dL (80-110); HEMOLYSIS < 15 (0-50); Magnesium 1.5 mg/dL (1.6-2.3); Sodium 137 mmol/L (137-145)
[2022-02-13 06:08] LABS: Carbon Dioxide 36 mmol/L (22-32)
[2022-02-13 06:55] LABS: Potassium 2.7 mmol/L (3.4-5.1)
[2022-02-13] MEDS: ALBUTEROL/IPRATROPIUM 3 ML AMPUL INH ×5 (08:20→22:48)
[2022-02-13] MEDS: BUDESONIDE 0.5 MG/2 ML NEB INH ×2 (08:20→19:05)
[2022-02-13] MEDS: FAMOTIDINE 20 MG/2 ML VIAL IV ×2 (08:37→21:07)
[2022-02-13] MEDS: PREGABALIN 75 MG CAPSULE 150 MG PO ×2 (08:37→21:07)
[2022-02-13] MEDS: DOXYCYCLINE HYCLATE 100 MG TABLET PO ×2 (08:38→21:06)
[2022-02-13] MEDS: NICOTINE 14 PATCH 14 MG TOP (08:38)
[2022-02-13] MEDS: NORTRIPTYLINE HCL 25 MG CAPSULE 50 MG PO (08:38)
[2022-02-13] MEDS: FOLIC ACID 1 MG TABLET PO (08:38)
[2022-02-13] MEDS: MULTIVITAMIN 1 TABLET 1 TAB PO (08:38)
[2022-02-13] MEDS: VENLAFAXINE 37.5 MG TABLET PO ×2 (08:38→21:06)
[2022-02-13] MEDS: POTASSIUM CHLORIDE 20 MEQ TAB PO (08:38)
--- NOTE | 2022-02-13 11:20 | PC.NURSE ---
Day shift note 1105 Dr Paige at bedside, chest tube removed, allevyn dressing in place, ok to change dressing as needed.
[2022-02-13] MEDS: POTASSIUM CHLORIDE 20 MEQ TAB 40 MEQ PO ×2 (13:10→19:35)
--- NOTE | 2022-02-13 14:05 | P.PN_ITS ---
Subjective Subjective Interval history: 62-year-old female with anxiety, rheumatoid arthritis, tobacco dependence, hypertension, hyperlipidemia, and alcohol dependence presently hospital day 14 admitted with COVID pneumonia, acute hypoxic respiratory failure requiring intubation/mechanical ventilation, septic shock, PAUL, and acute encephalopathy.? Additionally, she is found to have staph bacteremia, MSSA pneumonia with parapneumonic effusion now status post chest tube placement and removal today, as well as an E coli UTI. Patient reports she is feeling much better. She continues to expectorate grayish sputum. She denies any ongoing shortness of breath. She is eating and drinking well. She is having small but regular bowel movements. No nausea or vomiting. She is pleased to have had her chest tube removed today. Exam Vital Signs (past 8 hours): - 02/13/22 08:20 02/13/22 08:27 02/13/22 07:00 Temperature Pulse Rate 102 H 104 H Respiratory Rate 24 24 Blood Pressure Pulse Oximetry 98 Oxygen Delivery Method Room Air Nasal Cannula Oxygen Flow Rate 1.5 02/13/22 08:00 02/13/22 07:00 02/13/22 07:39 Temperature Pulse Rate 102 H Respiratory Rate 31 H Blood Pressure 121/66 Pulse Oximetry 94 Oxygen Delivery Method Room Air Oxygen Flow Rate 02/13/22 07:39 02/13/22 08:00 02/13/22 09:00 Temperature Pulse Rate 101 H 108 H 100 H Respiratory Rate 26 H 37 H 26 H Blood Pressure Pulse Oximetry 91 99 98 Oxygen Delivery Method Oxygen Flow Rate 02/13/22 10:00 02/13/22 11:00 02/13/22 12:00 Temperature 98 F Pulse Rate 111 H 101 H 107 H Respiratory Rate 37 H 14 34 H Blood Pressure Pulse Oximetry 92 Oxygen Delivery Method Oxygen Flow Rate 02/13/22 12:00 02/13/22 12:46 Temperature Pulse Rate Respiratory Rate Blood Pressure Pulse Oximetry 93 98 Oxygen Delivery Method Room Air Oxygen Flow Rate 2 Fraction of Inspired Oxygen 28 SaO2/FiO2 Ratio 350 Oxygen Delivery Method Room Air Oxygen Flow Rate 2 Narrative Exam Narrative: GEN: Pleasant middle-aged female, Alert and oriented x 3, NAD HEENT:NC, Face symmetric CHEST: Respiratory excursions symmetric, coarse but CTAB CV: Mildly tachycardic with regular rhythm, no M/R/G ABD: Soft, NT/ND, BT present in all 4 quadrants, no organomegaly or masses EXTR: warm, well perfused, no C/C/E SKIN: warm and dry, livido reticularis noted to both lower extremities NEURO: Alert and oriented x 3, nonfocal Objective Labs Result Diagrams: 02/13/22 05:30 02/13/22 05:30 Labs: Laboratory Results - last 24 hr 02/13/22 02/13/22 05:30 05:30 WBC 16.1 H RBC 2.86 L Hgb 8.8 L Hct 27.4 L MCV 95.7 D MCH 30.6 MCHC 32.0 RDW 14.7 Plt Count 471 H Neut % (Auto) 79.4 H Lymph % (Auto) 13.0 L [place] % (Auto) 5.1 Eos % (Auto) 1.7 L Baso % (Auto) 0.8 Neut # (Auto) 13652 H Lymph # (Auto) 2100 [place] # (Auto) 800 Eos # (Auto) 300 Baso # (Auto) 100 Sodium 137 Potassium 2.7 L* Chloride 93 L Carbon Dioxide 36 H BUN 21 H Creatinine 0.76 Estimated GFR > 60 BUN/Creatinine Ratio 27.6 H Glucose 98 Calcium 7.8 L Magnesium 1.5 L PFSH Medical History Alcohol dependence Anemia Anxiety Chronic back pain (~2013) COVID-19 virus infection Degenerative joint disease (DJD) of lumbar spine (~1975) Hyperlipidemia Hypertension Osteoarthritis (~2013) Pneumonia Rheumatoid arthritis (~2009) Scoliosis (~1975) Tobacco dependence Surgical History Anesthesia History of amputation of toe (~2018) History of incision and drainage (03/19/20) Status post left foot surgery (08/23/20) Family History Father Cancer Hypertension Hyperlipidemia Mother Hypertension Brother Testicular cancer Hypertension Brother Diabetes mellitus Hypertension Hyperlipidemia Social History household members: significant other and family Smoking Status: Current every day smoker Tobacco: How many years used: 40 quit status: quit date established (September 08 2020) second hand exposure: No alcohol intake: current substance use type: does not use Assessment & Plan Assessment & Plan narrative: 1. Acute hypoxic respiratory failure Etiology is felt to be COVID pneumonia and superimposed staph pneumonia, possibly MRSA based on 1 of 3 sputum cultures and associated parapneumonic effusion. She is now been weaned down to 2 liters/minute O2 via nasal cannula. 2.? COVID pneumonia with superimposed MSSA/MRSA pneumonia with parapneumonic effusion Patient completed a 10 day course of remdesivir and steroids for treatment of the COVID pneumonia. Doxycycline was added February 04. Plan is to continue doxycycline through February, which would be 1 week after chest tube placement. 3. Staph aureus bacteremia MSSA in 1 blood culture from 01/30, making it likely this was a contaminant.? f/u cultures were negative. Given the MSSA sputum, it is possible this was a true bacteremia. Either way, it has been adequately treated. 4. Rheumatoid arthritis Patient notes that her rheumatologic medications were held in preparation for upcoming elective knee replacement. 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 5. Hypertension On metoprolol and HCTZ on an outpatient basis, which have been held.? BPs generally have been normotensive here. 6. Anxiety On venlafaxine 7. Tobacco dependence Nicotine patch is in place 8. Hyponatremia/hypernatremia Sodium level has vacillated between low and high at 146, which it was on his last lab draw on February 11. Today has normalized. Anticipate less difficulty with regulating his electrolytes, as we will be discontinuing furosemide. 9. Azotemia Improving over the past couple of days. Tubes/lines: Right IJ - placed 01/31 PIV LFA- placed 02/04 Mari cath - placed 01/31 ETT- placed 01/31, extubated 02/11/2022 Chest tube-placed 02/10/22 removed today 02/13/2022 FEN: Now on a regular diet, tolerating it well. Will discontinue diuretics. Resolved issues: PAUL Septic shock - Etiology is likely multifactorial from UTI, COVID pneumonia, superimposed bacterial pneumonia COVID pneumonia E coli UTI Alcohol dependence and withdrawal MSSA bacteremia Acute metabolic encephalopathy - likely multifactorial from alcohol w/d and infection Code status Full Prophylaxis On heparin and famotidine Disposition Acute care Time Spent With Patient Critical Care time: I spent a total of [] minutes of critical care time on this patient's care today; this time is exclusive of procedural time.
[2022-02-13] MEDS: MAGNESIUM CHLORIDE 64 MG TABLET 128 MG PO (14:10)
--- NOTE | 2022-02-13 14:55 | PT.IIE ---
Current Diagnoses Alcohol dependence, uncomplicated (01/30/22) Pneumonia, unspecified organism (01/30/22) Pleural effusion, not elsewhere classified (01/30/22) Acute respiratory failure, unspecified whether with hypoxia or hypercapnia (01/30/22) Acute respiratory failure with hypoxia (01/30/22) Acute respiratory failure with hypercapnia (01/30/22) Rheumatoid arthritis, unspecified (01/30/22) Pain in left knee (01/30/22) Acute kidney failure, unspecified (01/30/22) Other specified abnormal findings of blood chemistry (01/30/22) Unspecified abnormal findings in urine (01/30/22) COVID-19 (01/30/22) Surgical History (Last Reviewed 01/31/22 @ 08:26 by Tanesha Leigh MD) Anesthesia History of amputation of toe (~2018) History of incision and drainage (03/19/20) Status post left foot surgery (08/23/20) Medical History (Last Reviewed 01/31/22 @ 08:26 by Tanesha Leigh MD) Alcohol dependence Anemia Anxiety Chronic back pain (~2013) COVID-19 virus infection Degenerative joint disease (DJD) of lumbar spine (~1975) Hyperlipidemia Hypertension Osteoarthritis (~2013) Pneumonia Rheumatoid arthritis (~2009) Scoliosis (~1975) Tobacco dependence Physical Therapy Inpatient Evaluation/Re-Eval M1 PT/OT-IP Prior Functional Status Start: 02/13/22 16:56 Freq: NEEDED Status: Active Protocol: Document 02/13/22 14:55 AB (Rec: 02/13/22 17:15 AB [id number]) Medical Review Prior Functional Status Medical History Reviewed Yes Communication able to make needs known Mobility and Gait pt stated that she is modified independent with all mobilities and ambulation using FWW; significant other stated that pt can only walk ~ 20 ft using FWW and has to sit down due to knee pain, stated that pt hops around to walk and unable to use L knee. stated that pt's L knee is scheduled for surgery by Dr. hernadez in march this year Social History Household Members significant other Living Arrangements House Number of Floors (Floors) One Floor Number of Stairs To Enter/Railing? 4 steps without rails but SO stated that he has a portable ramp he can put in on the steps Home Environment Standard Height Toilet,Tub/ Shower Home Equipment Front Wheel Walker,Manual Wheelchair,Hand Held Shower Additional Social History Comment has a 3WW M2 PT-IP Current Condition Start: 02/13/22 16:56 Freq: NEEDED Status: Active Protocol: Document 02/13/22 14:55 AB (Rec: 02/13/22 17:15 AB [id number]) Physical Therapy Current Condition Current Condition Evaluation Date 02/13/22 Treatment Diagnosis Covid; PNA; PAUL, sepsis; difficulty in walking Onset Date 01/30/22 M3 PT-IP Subjective Start: 02/13/22 16:56 Freq: NEEDED Status: Active Protocol: Document 02/13/22 14:55 AB (Rec: 02/13/22 17:15 AB [id number]) Subjective Physical Therapy Visit Type Type Initial Evaluation Visit Start Time 14:55 Visit Stop Time 16:00 Total Visit Minutes 65 Number of WEATHERIZATION FIELD TECHNICIAN Visits 0 Physical Therapy Visit Comments Patient Comments agreeable to do PT M4 PT-IP Mobility and Gait Start: 02/13/22 16:56 Freq: NEEDED Status: Active Protocol: Document 02/13/22 14:55 AB (Rec: 02/13/22 17:15 AB [id number]) PT-Bed Mobility Assessment Supine to Sit Supine to Sit Maximum Assistance,2 Person Assistance,Head of Bed Elevated,Bedrails Sit to Supine Sit to Supine Maximum Assistance,2 Person Assistance Scooting Scooting to Edge of Bed Dependent PT-Transfer Assessment Sit to and From Stand Sit to and from Stand Maximum Assistance,2 Person Assistance,Use of Upper Extremities Comments Mobility Comments pt's significant other in room with pt. SO emphasizes that pt cannot use LLE due to knee is very bad. pt stated that she is not using LLE because of pain and also because of fear that she will make it worse. informed pt that she has to use LLE as tolerated because it will just get weaker if not and that the doctor did not say she cannot use her leg. informed pt the benefit of moving and using LLE in preparation for her up coming surgery. Pt agreed. pt completed supine to sit max Ax 2 and max cues with HOB elevated. pt required max A x 1-2 for sitting balance on EOB. dependent with scooting to EOB. pt with posterior trunk lean and has overall weakness and unable to use BUE much to hold sitting balance. pt used bed rail to assist with sitting balance as much as possible but still require max A. placed step stool under BLE and completed sit to stand x 2 attempts max A x 2 and max cues. tolerated ~ 4 sec of standing and pt sat back down. total A x 2 for scooting to HOB. max A x 2 for sit to supine. positioned pt on the bed. Left pt with OT. PT-Balance Assessment Sitting Balance and Reactions Static Sitting Balance Ability Poor Dynamic Sitting Balance Ability Poor Standing Balance and Reactions Static Standing Balance Ability Poor Dynamic Standing Balance Ability Poor Device Used FWW M5 PT-IP Objective Assessments Start: 02/13/22 16:56 Freq: NEEDED Status: Active Protocol: Document 02/13/22 14:55 AB (Rec: 02/13/22 17:15 AB [id number]) Orientation Orientation/Cognition Level of Alertness Alert Orientation Name,Place,Situation Language Function Ability No Deficits Noted Safety Awareness Decreased Safety Awareness Memory Description Short Term Impaired Gross Range of Motion Lower Extremity ROM Assessment Within Functional Limits Strength Lower Extremity Strength Assessment Bilaterally Impaired Hip 3+/5 Knee 3+/5 Sensation Assessment Sensation Gross Sensation WNL Muscle Tone Muscle Tone WNL Yes M6 PT-IP Treatment Start: 02/13/22 16:56 Freq: NEEDED Status: Active Protocol: Document 02/13/22 14:55 AB (Rec: 02/13/22 17:15 AB [id number]) Physical Therapy Treatment Education Education Provided Safety M7 PT-IP Assessment and Plan Start: 02/13/22 16:56 Freq: NEEDED Status: Active Protocol: Document 02/13/22 14:55 AB (Rec: 02/13/22 17:15 AB [email or web address]) PT Summary Assessment and Plan Potential Rehabilitation Potential Fair Status of Condition at Evaluation Evolving Summary Impairments Pain,ROM,Strength,Balance, Coordination,Sensation,Tone, Cognition,Bed Mobility, Transfers,Gait,Activity Tolerance Assessment Summary pt requiring max A x 2 to total A x 2 with bed mobility. Pt unable to do a transfer but able to stand using FWW max A x 2 and max cues. pt has decrease trunk control affecting sitting balance requiring max A x 1-2 and max cues. pt will require SNF rehab to improve strength and mobility. Goals Bed Mobility Goal Minimal Assistance Transfer Goal Minimal Assistance,Front Wheeled Walker Gait Goal Minimal Assistance,Front Wheel Walker Gait Distance 20 Other Goals improve bed mobility SBA, transfers using FWW SBA, ambulation using FWW SBA 50 ft Days to Meet Goals 10 Frequency of Treatment Frequency Of Treatment Once a Day Treatment Plan Physical Therapy Treatment Plan Bed Mobility Training,Transfer Training,Gait Training, Therapeutic Exercise,Balance Retraining,Discharge Planning, Hot or Cold Pack,Neuromuscular Re-ed,Coordination Retraining ,Manual Therapy Precautions Other Precautions MRSA contact precautions Recommendations To Nursing Amount of Assist Needed Mechanical Lift Discharge Recommendations PT Discharge Recommendations SNF Rehab Transportation Needs at Discharge Wheelchair/Cabulance,Stretcher /Ambulance
--- NOTE | 2022-02-13 16:26 | OT.IP.EVAL ---
Current Diagnoses Alcohol dependence, uncomplicated (01/30/22) Pneumonia, unspecified organism (01/30/22) Pleural effusion, not elsewhere classified (01/30/22) Acute respiratory failure, unspecified whether with hypoxia or hypercapnia (01/30/22) Acute respiratory failure with hypoxia (01/30/22) Acute respiratory failure with hypercapnia (01/30/22) Rheumatoid arthritis, unspecified (01/30/22) Pain in left knee (01/30/22) Acute kidney failure, unspecified (01/30/22) Other specified abnormal findings of blood chemistry (01/30/22) Unspecified abnormal findings in urine (01/30/22) COVID-19 (01/30/22) Past Medical History (Last Reviewed 01/31/22 @ 08:26 by Tanesha Leigh MD) Alcohol dependence Anemia Anxiety Chronic back pain (~2013) COVID-19 virus infection Degenerative joint disease (DJD) of lumbar spine (~1975) Hyperlipidemia Hypertension Osteoarthritis (~2013) Pneumonia Rheumatoid arthritis (~2009) Scoliosis (~1975) Tobacco dependence Surgical History (Last Reviewed 01/31/22 @ 08:26 by Tanesha Leigh MD) Anesthesia History of amputation of toe (~2018) History of incision and drainage (03/19/20) Status post left foot surgery (08/23/20) Occupational Therapy Inpatient Evaluation/Re-Eval M1 PT/OT-IP Prior Functional Status Start: 02/13/22 16:56 Freq: NEEDED Status: Active Protocol: Document 02/13/22 15:37 [facility] (Rec: 02/13/22 19:40 [facility] [id number]) Medical Review Prior Functional Status Medical History Reviewed Yes Communication able to make needs known Mobility and Gait pt stated that she is modified independent with all mobilities and ambulation using FWW; significant other stated that pt can only walk ~ 20 ft using FWW and has to sit down due to knee pain, stated that pt hops around to walk and unable to use L knee. stated that pt's L knee is scheduled for surgery by Dr. Saleh in March this year Activities of Daily Living and IADL's Pt's significant other has been having to assist pt more for ADl needs in the past few months. Social History Household Members significant other Living Arrangements House Number of Floors (Floors) One Floor Number of Stairs To Enter/Railing? 4 steps without rails but SO stated that he has a portable ramp he can put in on the steps Home Environment Standard Height Toilet,Tub/ Shower Home Equipment Front Wheel Walker,Manual Wheelchair,Hand Held Shower Additional Social History Comment has a 3WW M2 OT-IP Current Condition Start: 02/13/22 19:12 Freq: Status: Active Protocol: Document 02/13/22 15:37 [facility] (Rec: 02/13/22 19:40 [facility] [id number]) Occupational Therapy Current Condition Current Condition Evaluation Date 02/13/22 Treatment Diagnosis COVID+, PNA, Sepsis, PAUL Diagnosis Onset Date 01/30/22 M3 OT- IP Subjective and Pain Start: 02/13/22 19:12 Freq: Status: Active Protocol: Document 02/13/22 15:37 [facility] (Rec: 02/13/22 19:40 [facility] [id number]) OT- Subjective Occupational Therapy Visit Type Type Initial Evaluation Visit Start Time 15:37 Visit Stop Time 16:26 Total Visit Minutes 49 Occupational Therapy Visit Comments Patient Comments Pt's significant other in the room. Patient/Caregiver Goals To get better. M4 OT- IP ADL's Start: 02/13/22 19:12 Freq: Status: Active Protocol: Document 02/13/22 15:37 [facility] (Rec: 02/13/22 19:40 [facility] [id number]) OT [id number] Comments OT Self-Feeding Comments Pt needing assist to feed herself due to decreased AROm and strength in BUE. OT ADL-Grooming General Evaluation Grooming Ability Maximum Assistance Comments OT Grooming Comments Pt needing asisst for completeness to wash her face. OT ADL-Oral Care General Eval Oral Care Ability Maximum Assistance Comments Oral Care Comments [place] TRIBE assist and support at her elbow to help use the toothbrush. OT ADL-Dressing General Eval Upper Body Dressing Ability Total Assistance Lower Body Dressing Ability Total Assistance Comments OT Dressing Comments Total assist at this time for all needs. OT ADL-Toileting General Evaluation Toileting Ability Total Assistance Comments OT Toileting Comments Mari in place OT ADL-Bathing Bathing Type Bathing Type Sponge Bath Comments OT Bathing Comments Sponge bath more appropriate M5 OT- IP IADL's Start: 02/13/22 19:12 Freq: Status: Active Protocol: Document 02/13/22 15:37 [facility] (Rec: 02/13/22 19:40 [facility] [id number]) OT-Instrumental Activities of Daily Living Deficits IADL Deficits Identified Deficits Home Safety Awareness Awareness of Need for Assistance at Home Decreased Awareness Ability to Problem Solve Emergency Unable to Problem Solve Situations Home Safety Comments Pt decreased awareness of her deficits and talks of how when she was able to care for herself. Medication Management Medication Management Caregiver Administers Money Management Money Management Caregiver Provides Assistance Meal Preparation Meal Preparation Caregiver Provides Assist Railway Traction Line Worker Railway Traction Line Worker Caregiver Provides Assist M6 OT- IP Functional Cognition Start: 02/13/22 19:12 Freq: Status: Active Protocol: Document 02/13/22 15:37 [facility] (Rec: 02/13/22 19:40 [facility] [id number]) Cognitive Factors Limiting Selfcare Function Cognitive Ability Level of Alertness Confusional State Patient Orientation Name Attention Span Ability Capable of Focused Attention, Unable to Sustain Attention Ability to Follow Commands Able to Follow One Step Commands with Increased Time, Able to Follow One Step Commands with Repetition Memory Description Short Term Impaired,Working Impaired Cognitive Comments Cognitive Assessment Comments Pt not remembering her deficits at this time and is insistent to her significant other that she is capable of doing things for herself. OT- Vision and Hearing OT- Hearing Assessment OT- Hearing Assessment WFL M7 OT- IP Mobility and Balance Start: 02/13/22 19:12 Freq: Status: Active Protocol: Document 02/13/22 15:37 [facility] (Rec: 02/13/22 19:40 [facility] [id number]) OT- Bed Mobility Assessment Supine to Sit Supine to Sit Assist Maximum Assistance Sit to Supine Sit to Supine Assist Maximum Assistance Scooting Scooting to Edge of Bed Maximum Assistance,2 Person Assistance OT-Transfer Assessment Sit to and From Stand Sit to and from Stand Maximum Assistance,Total Assistance,2 Person Assistance Comments Mobility Comments MAXA X2 to sit to the edge of the bed. Poor midline control and needing from MAXAX 1-2 for sitting balance. Able to stand on a step as bed too high to stand from with FWW MAX/TOtal asisst x2. OT- Balance Assessment Sitting Balance and Reactions Static Sitting Balance Ability Poor Dynamic Sitting Balance Ability Poor Standing Balance and Reactions Static Standing Balance Ability Poor Dynamic Standing Balance Ability Poor M8 OT- IP Objective Assessments Start: 02/13/22 19:12 Freq: Status: Active Protocol: Document 02/13/22 15:37 [facility] (Rec: 02/13/22 19:40 [facility] [id number]) OT Gross Range of Motion Upper Extremity Range of Motion Assessment Bilaterally Impaired OT Strength Upper Extremity Strength Assessment Bilaterally Impaired Comments Strength Comments BUE 3-/5 to 3/5 throughout M9 OT- IP Assessment and Plan Start: 02/13/22 19:12 Freq: Status: Active Protocol: Document 02/13/22 15:37 [facility] (Rec: 02/13/22 19:40 [facility] [id number]) OT Summary Assessment and Plan Potential Rehabilitation Potential Fair Analytic Complexity at Evaluation High Summary OT Impairments Pain,Range of Motion,Strength, Balance,Coordination, Functional Cognition, Functional Mobility,Self- Feeding,Grooming,Dressing, Toileting,Bathing,Toilet Transfers,Shower Transfers, Activity Tolerance Progress Towards Goals Slow Progress due to Pain,Slow Progress due to Medical Issues,Slow Progress due to Activity Tolerance,Slow Progress due to Cognition Assessment Summary Pt high complexity and main barriers are pain in left knee , decreased midline, sitting balance, and needing two extensive person to assist for bed mobility needs. Pt's BUE weakness and needing to be fed at this time and therefore dependent for ADl needs. Pt will benefit from skilled rehab. Goals Grooming Goal Minimal Assistance Dressing Goal Moderate Assistance Toileting Goal Moderate Assistance Bathing Goal Moderate Assistance Toilet Transfer Goal Moderate Assistance Shower Transfer Goal Moderate Assistance Days to Meet Goals 20 Frequency of Treatment Frequency Of Treatment Once a Day Treatment Plan OT Treatment Plan ADL Training,Functional Cognition Training,Functional Mobility,Patient/Family Education,Discharge Planning Other Treatment Recommendations and Next CECILE for self feeding with Treatment Focus adaptive utensils. Discharge Recommendations OT Discharge Recommendations SNF Rehab Transportation Needs at Discharge Stretcher/Ambulance
[2022-02-13] MEDS: ACETAMINOPHEN 325 MG TABLET 650 MG PO (19:47)
[2022-02-13] MEDS: QUETIAPINE 25 MG TABLET 50 MG PO (21:06)
[2022-02-13] MEDS: NYSTATIN CREAM 30 GM 1 APPLIC TOP (21:12)
[2022-02-14] VITALS (27 sets, daily range): BP systolic 116–138; BP diastolic 55–69; PULSE 83–126; RESP 15–66; TEMP 35.9–36.7; O2SAT 88–100
[2022-02-14] MEDS: HEPARIN 5,000 UNIT/ML VIAL 5000 UNIT SUBCUT ×3 (05:49→21:29)
[2022-02-14 07:03] LABS: BUN Creatinine Ratio 26.3 (6-22); Blood Urea Nitrogen 15 mg/dL (7-17); Carbon Dioxide 34 mmol/L (22-32); Chloride 98 mmol/L (98-107); Estimated Glomerular Filt Rate > 60 mL/min (>60); Glucose 86 mg/dL (80-110); HEMOLYSIS < 15 (0-50); Magnesium 1.6 mg/dL (1.6-2.3); Sodium 136 mmol/L (137-145)
[2022-02-14 07:04] LABS: Add Manual Diff / Slide Review NO; Basophils Absolute Auto 100 /uL (0-100); Basophils Percent Auto 0.3 % (0-2); Eosinophils Absolute Auto 300 /uL (0-450); Eosinophils Percent Auto 2.2 % (2-4); Hemoglobin 8.8 g/dL (12.0-16.0); Lymphocytes Absolute Auto 1900 /uL (1100-4500); Lymphocytes Percent Auto 12.7 % (25-40); Mean Corpuscular Hemoglobin 32.3 PG (26-34); Mean Corpuscular Volume 94.7 fL (80-100); Monocytes Absolute Auto 800 /uL (0-900); Monocytes Percent Auto 5.6 % (3-14); Neutrophils Absolute Auto 12100 /uL (1500-7000); Neutrophils Percent Auto 79.2 % (50-75); Platelet Count 364 X10^3/uL (150-400); Red Blood Cell Count 2.74 X10^6/uL (4.0-5.2); Red Cell Distribution Width 14.2 % (11.6-14.8); White Blood Cell Count 15.2 X10^3/uL (4.5-11.0)
--- NOTE | 2022-02-14 08:08 | PM.PN.1 ---
Subjective Subjective Date Patient Seen: 02/14/22 Interval history: 62-year-old female with anxiety, rheumatoid arthritis, tobacco dependence, hypertension, hyperlipidemia, and alcohol dependence presently hospital day 14 admitted with COVID pneumonia, acute hypoxic respiratory failure requiring intubation/mechanical ventilation, septic shock, PAUL, and acute encephalopathy. Hospital course complicated by right loculated parapneumonic effusion which was treated with chest tube. Patient states breathing is stable. Looking forward to going to rehab and then home. Exam Vital Signs (past 8 hours): - 02/14/22 03:45 02/14/22 04:00 Temperature 97.2 F L Pulse Rate 87 Respiratory Rate 15 Blood Pressure 134/63 Pulse Oximetry 92 99 Oxygen Delivery Method Nasal Cannula Oxygen Flow Rate 2 2 Fraction of Inspired Oxygen 28 SaO2/FiO2 Ratio 350 Oxygen Delivery Method Nasal Cannula Oxygen Flow Rate 2 Narrative Exam Narrative: General: Alert pleasant female in no acute distress Lungs: Bilateral diminished breath sounds Heart: Regular rhythm Extremities: No pitting edema Neurological: Affect normal, speech fluent, no unilateral weakness Objective Labs Result Diagrams: 02/14/22 06:06 02/14/22 06:06 Labs: Laboratory Results - last 24 hr 02/14/22 02/14/22 06:06 06:06 WBC 15.2 H RBC 2.74 L Hgb 8.8 L Hct 26.0 L MCV 94.7 MCH 32.3 MCHC 34.0 RDW 14.2 Plt Count 364 Neut % (Auto) 79.2 H Lymph % (Auto) 12.7 L [place] % (Auto) 5.6 Eos % (Auto) 2.2 Baso % (Auto) 0.3 Neut # (Auto) 08005 H Lymph # (Auto) 1900 [place] # (Auto) 800 Eos # (Auto) 300 Baso # (Auto) 100 Sodium 136 L Potassium 4.0 D Chloride 98 Carbon Dioxide 34 H BUN 15 Creatinine 0.57 Estimated GFR > 60 BUN/Creatinine Ratio 26.3 H Glucose 86 Calcium 8.0 L Magnesium 1.6 PFSH Medical History Alcohol dependence Anemia Anxiety Chronic back pain (~2013) COVID-19 virus infection Degenerative joint disease (DJD) of lumbar spine (~1975) Hyperlipidemia Hypertension Osteoarthritis (~2013) Pneumonia Rheumatoid arthritis (~2009) Scoliosis (~1975) Tobacco dependence Surgical History Anesthesia History of amputation of toe (~2019) History of incision and drainage (03/19/20) Status post left foot surgery (08/23/20) Family History Father Cancer Hypertension Hyperlipidemia Mother Hypertension Brother Testicular cancer Hypertension Brother Diabetes mellitus Hypertension Hyperlipidemia Social History household members: significant other Smoking Status: Current every day smoker Tobacco: How many years used: 40 quit status: quit date established (September 08 2020) second hand exposure: No alcohol intake: current substance use type: does not use Assessment & Plan Assessment & Plan narrative: 1.? Acute hypoxic respiratory failure, improving -secondary to MSSA, MRSA bacterial pneumonia with parapneumonic effusion. -minimize sedation, currently on Precedex only -ultrasound thoracentesis of right pleural effusion on 02/08 consistent with loculated pleural effusion, general surgery placed chest tube on 02/10 -chest tube was draining straw colored fluid, likely due to parapneumonic effusion over empyema -chest tube removed on 02/13/22 -continue doxycycline by mouth for 1 week post chest tube removal which would be through 02/20/2022 -currently on 2 L nasal cannula -continue RT nebulizer therapies 2. COVID pneumonia with superimposed bacterial pneumonia secondary to MRSA -continued steroid and remdesivir through 02/09/2022 to complete 10 day course (methylprednisolone switched back to dexamethasone by [facility] ICU) -management of MRSA pneumonia with loculated right parapneumonic effusion with doxycycline and chest tube, as documented above 3. E coli urinary infection, present on admission, treated -completed 1 week course of Rocephin through 02/10/2022 4. Acute alcohol withdrawal and metabolic encephalopathy, resolved -patient is back on her home meds pregabalin, venlafaxine and nortriptyline -had also been started on Seroquel which was discontinued on 02/14 5. Septic shock, resolved -due to pneumonia and acute cystitis (secondary to MSSA and MRSA based on sputum cultures, urinary infection with E. coli). -prior cultures staph epidermidis blood culture - likely contaminant -continues on 6. PAUL, present on admission, resolved ?- secondary to septic shock 7.? Tobacco dependence -nicotine patch 8.? History of rheumatoid arthritis -patient is off her leflunomide due to active infection, but can probably be restarted in a few weeks -patient had knee replacement scheduled with Dr. Latrice Saleh in early March which will need to be postponed until she is more fully recovered Continue PT and OT. Patient is medically stable and would benefit from SNF rehab. Time Spent With Patient Critical Care time: I spent a total of [] minutes of critical care time on this patient's care today; this time is exclusive of procedural time.
[2022-02-14] MEDS: ALBUTEROL/IPRATROPIUM 3 ML AMPUL INH ×4 (08:30→23:33)
[2022-02-14] MEDS: BUDESONIDE 0.5 MG/2 ML NEB INH ×2 (08:30→18:33)
[2022-02-14] MEDS: FOLIC ACID 1 MG TABLET PO (09:04)
[2022-02-14] MEDS: PREGABALIN 75 MG CAPSULE 150 MG PO ×2 (09:04→21:29)
[2022-02-14] MEDS: MAGNESIUM CHLORIDE 64 MG TABLET 128 MG PO (09:04)
[2022-02-14] MEDS: NICOTINE 14 PATCH 14 MG TOP (09:04)
[2022-02-14] MEDS: NORTRIPTYLINE HCL 25 MG CAPSULE 50 MG PO (09:05)
[2022-02-14] MEDS: MULTIVITAMIN 1 TABLET 1 TAB PO (09:05)
[2022-02-14] MEDS: VENLAFAXINE 37.5 MG TABLET PO ×2 (09:05→21:29)
[2022-02-14] MEDS: SODIUM CHLORIDE 0.9% FLUSH 10 ML IV ×2 (09:05→21:30)
[2022-02-14] MEDS: DOXYCYCLINE HYCLATE 100 MG TABLET PO ×2 (09:05→21:29)
[2022-02-14] MEDS: NYSTATIN CREAM 30 GM 1 APPLIC TOP ×2 (09:06→21:30)
--- NOTE | 2022-02-14 11:30 | PT.IPTN ---
Current Diagnoses Alcohol dependence, uncomplicated (01/30/22) Pneumonia, unspecified organism (01/30/22) Pleural effusion, not elsewhere classified (01/30/22) Acute respiratory failure, unspecified whether with hypoxia or hypercapnia (01/30/22) Acute respiratory failure with hypoxia (01/30/22) Acute respiratory failure with hypercapnia (01/30/22) Rheumatoid arthritis, unspecified (01/30/22) Pain in left knee (01/30/22) Acute kidney failure, unspecified (01/30/22) Other specified abnormal findings of blood chemistry (01/30/22) Unspecified abnormal findings in urine (01/30/22) COVID-19 (01/30/22) Physical Therapy Treatment Note M2 PT-IP Current Condition Start: 02/13/22 16:56 Freq: NEEDED Status: Active Protocol: Document 02/13/22 14:55 AB (Rec: 02/13/22 17:15 AB [email or web address]) Physical Therapy Current Condition Current Condition Evaluation Date 02/13/22 Treatment Diagnosis Covid; PNA; PAUL, sepsis; difficulty in walking Onset Date 01/30/22 M3 PT-IP Subjective Start: 02/13/22 16:56 Freq: NEEDED Status: Active Protocol: Document 02/14/22 11:30 AB (Rec: 02/14/22 13:07 AB [email or web address]) Subjective Physical Therapy Visit Type Type Treatment Note Visit Start Time 11:30 Visit Stop Time 12:10 Total Visit Minutes 40 Number of BEAD CUTTER Visits 0 Physical Therapy Visit Comments Patient Comments agreeable to do PT M4 PT-IP Mobility and Gait Start: 02/13/22 16:56 Freq: NEEDED Status: Active Protocol: Document 02/14/22 11:30 AB (Rec: 02/14/22 13:07 AB [email or web address]) PT-Bed Mobility Assessment Supine to Sit Supine to Sit Maximum Assistance,1 Person Assistance,Head of Bed Elevated,Bedrails PT-Transfer Assessment Sit to and From Stand Sit to and from Stand Maximum Assistance,2 Person Assistance,Use of Upper Extremities Transfers Transfer Destination Chair Transfer Technique Mechanical Lift Comments Mobility Comments pt completed BLE exercises in bed prior to mobility: heel slides, SLR and ankle pumps. completed supine to sit max A and max cues. able to sit on EOB mod to max A with initial sitting balance. scooted and positioned pt on EOB total A. pt completed sitting balance activities: static sitting with increasing awareness on COG (pt able to hold sitting balance SBA to CGA ~ 1 min with increase body shakiness ater ~ 30 sec). pt used UE to support, sitting balance with perturbations, reaching with UE while maintaining sitting balance. pt completed sit to stand from EOB max A x 2 and max cues. pt repeated x 2. pt only tolerated ~ 5 sec hof standing . Assisted pt on the chair with NAC using mechanical lift and conducted proper sitting positioning on the chair. call light and table placed within reach. M5 PT-IP Objective Assessments Start: 02/13/22 16:56 Freq: NEEDED Status: Active Protocol: Document 02/13/22 14:55 AB (Rec: 02/13/22 17:15 AB [email or web address]) Orientation Orientation/Cognition Level of Alertness Alert Orientation Name,Place,Situation Language Function Ability No Deficits Noted Safety Awareness Decreased Safety Awareness Memory Description Short Term Impaired Gross Range of Motion Lower Extremity ROM Assessment Within Functional Limits Strength Lower Extremity Strength Assessment Bilaterally Impaired Hip 3+/5 Knee 3+/5 Sensation Assessment Sensation Gross Sensation WNL Muscle Tone Muscle Tone WNL Yes M6 PT-IP Treatment Start: 02/13/22 16:56 Freq: NEEDED Status: Active Protocol: Document 02/14/22 11:30 AB (Rec: 02/14/22 13:07 AB [email or web address]) Physical Therapy Treatment Exercises Exercises Ankle Pumps,Heel Slides Education Education Provided Safety Other Treatments Other Treatment Performed pls refer to mobility section for details M7 PT-IP Assessment and Plan Start: 02/13/22 16:56 Freq: NEEDED Status: Active Protocol: Document 02/14/22 11:30 AB (Rec: 02/14/22 13:07 AB [email or web address]) PT Summary Assessment and Plan Potential Rehabilitation Potential Fair Summary Impairments Pain,ROM,Strength,Balance, Coordination,Sensation,Tone, Cognition,Bed Mobility, Transfers,Gait,Activity Tolerance Progress Towards Goals Slow Progress due to Medical Issues,Slow Progress due to Activity Tolerance Assessment Summary pt continues to require max A x 2 with standing but has slight improvement with sitting balance and now able to maintain sitting balance SBA to CGA for ~ 1 min. pt will require SNF rehab to improve strength and mobility. will continue to assess progress. Goals Bed Mobility Goal Minimal Assistance Transfer Goal Minimal Assistance,Front Wheeled Walker Gait Goal Minimal Assistance,Front Wheel Walker Gait Distance 20 Other Goals improve bed mobility SBA, transfers using FWW SBA, ambulation using FWW SBA 50 ft Days to Meet Goals 10 Frequency of Treatment Frequency Of Treatment Once a Day Treatment Plan Physical Therapy Treatment Plan Bed Mobility Training,Transfer Training,Gait Training, Therapeutic Exercise,Balance Retraining,Discharge Planning, Hot or Cold Pack,Neuromuscular Re-ed,Coordination Retraining ,Manual Therapy Precautions Other Precautions MRSA contact precautions Recommendations To Nursing Amount of Assist Needed Mechanical Lift Discharge Recommendations PT Discharge Recommendations SNF Rehab Transportation Needs at Discharge Wheelchair/Cabulance,Stretcher /Ambulance
[2022-02-14] MEDS: ACETAMINOPHEN 325 MG TABLET 650 MG PO (15:04)
[2022-02-14] MEDS: OXYCODONE IR 5 MG TABLET PO (15:05)
--- NOTE | 2022-02-14 15:23 | CM.DPNOTE ---
DCP Note Reviewed DC planning efforts with patient and her SO Saqib. Explained that [facility] is a barrier. Saqib wonders if [facility] can be changed? Explained this is certainly an option but may not take effect in time to assist w/DC planning Patient/spouse agreeable to any place (SNF) and give CM team permission to broaden SNF search to [facility] as needed Encouraged patient and SO to consider a home plan as back up Saqib explains that he will be back to work, with some flexibility in schedule, soon and so if patient does need to return home she will need to be able to ambulate to and take care of basic needs/ADLs indp w/walker Saqib's disabled brother lives with them and can assist with cleaning and chores but cannot assist w/patient's ADLs. Patient's adult children do not live near Plan: SNF search to continue (see prior notes for attempts), broaden SNF search, contact [facility] if possible vs Home w/supportive SO and HH In addition- Discussed patient's hx of drinking, patient cannot remember the last time she was sober and SO Saqib begging patient at bedside to be honest with me about alcohol use. Patient supposedly hid multiple bottles per SO Patient plans to minimize or completely stop drinking; denies need for [facility] resources at this time. Strongly encouraged patient to consider counseling services. Patient knows that she will not be able to drink and smoke at SNF Following for coordination of the safest plan available to patient at this time JW
[2022-02-15] VITALS (29 sets, daily range): BP systolic 107–121; BP diastolic 53–60; PULSE 93–120; RESP 17–51; TEMP 35.8–36.7; O2SAT 82–100
[2022-02-15 04:44] LABS: Add Manual Diff / Slide Review NO; Basophils Absolute Auto 100 /uL (0-100); Eosinophils Absolute Auto 400 /uL (0-450); Eosinophils Percent Auto 2.7 % (2-4); Hemoglobin 8.1 g/dL (12.0-16.0); Lymphocytes Absolute Auto 1800 /uL (1100-4500); Lymphocytes Percent Auto 12.5 % (25-40); Mean Corpuscular HGB Conc 32.4 % (30-36); Mean Corpuscular Hemoglobin 31.1 PG (26-34); Monocytes Absolute Auto 800 /uL (0-900); Monocytes Percent Auto 5.7 % (3-14); Neutrophils Absolute Auto 11100 /uL (1500-7000); Neutrophils Percent Auto 78.1 % (50-75); Platelet Count 445 X10^3/uL (150-400); Red Cell Distribution Width 14.7 % (11.6-14.8); White Blood Cell Count 14.2 X10^3/uL (4.5-11.0)
[2022-02-15 04:45] LABS: BUN Creatinine Ratio 19.7 (6-22); Blood Urea Nitrogen 12 mg/dL (7-17); Calcium 8.2 mg/dL (8.4-10.2); Carbon Dioxide 35 mmol/L (22-32); Chloride 95 mmol/L (98-107); Estimated Glomerular Filt Rate > 60 mL/min (>60); Glucose 96 mg/dL (80-110); HEMOLYSIS < 15 (0-50); Magnesium 1.6 mg/dL (1.6-2.3); Potassium 4.2 mmol/L (3.4-5.1); Sodium 135 mmol/L (137-145)
[2022-02-15] MEDS: HEPARIN 5,000 UNIT/ML VIAL 5000 UNIT SUBCUT ×3 (06:01→22:42)
[2022-02-15] MEDS: MULTIVITAMIN 1 TABLET 1 TAB PO (08:51)
[2022-02-15] MEDS: DOXYCYCLINE HYCLATE 100 MG TABLET PO ×2 (08:51→20:31)
[2022-02-15] MEDS: NICOTINE 14 PATCH 14 MG TOP (08:51)
[2022-02-15] MEDS: FOLIC ACID 1 MG TABLET PO (08:51)
[2022-02-15] MEDS: NORTRIPTYLINE HCL 25 MG CAPSULE 50 MG PO (08:51)
[2022-02-15] MEDS: PREGABALIN 75 MG CAPSULE 150 MG PO ×2 (08:51→20:30)
[2022-02-15] MEDS: VENLAFAXINE 37.5 MG TABLET PO ×2 (08:51→20:31)
[2022-02-15] MEDS: MAGNESIUM CHLORIDE 64 MG TABLET 128 MG PO (08:54)
[2022-02-15] MEDS: BUDESONIDE 0.5 MG/2 ML NEB INH ×2 (09:00→19:25)
[2022-02-15] MEDS: ALBUTEROL/IPRATROPIUM 3 ML AMPUL INH ×4 (09:00→22:35)
[2022-02-15] MEDS: NYSTATIN CREAM 30 GM 1 APPLIC TOP ×2 (09:02→22:43)
--- NOTE | 2022-02-15 11:41 | PM.PN.1 ---
Subjective Subjective Date Patient Seen: 02/15/22 Interval history: She is seen today on her 16th day of hospitalization for complications of COVID pneumonia with a history of alcoholism. Her disability continues to be quite profound, requiring Tracy lift to transfer from bed to chair. She is unable to safely stand or walk in the room. Reportedly she was quite immobilized pre-existing this illness also. She has a variation of the [facility] and so finding a nursing home facility that will accept those types of payments has been challenging. The possibility of returning home with her on home health is also being considered but her weakness is likely more than her can handle on his own? Exam Vital Signs (past 8 hours): - 02/15/22 04:00 02/15/22 07:00 02/15/22 08:00 Temperature Pulse Rate Respiratory Rate Blood Pressure Pulse Oximetry 98 96 Oxygen Delivery Method Nasal Cannula Nasal Cannula Room Air Oxygen Flow Rate 2 2 Fraction of Inspired Oxygen 02/15/22 09:48 02/15/22 08:15 Temperature 97.7 F Pulse Rate 103 H 98 H Respiratory Rate 18 32 H Blood Pressure 120/53 L Pulse Oximetry 97 97 Oxygen Delivery Method Oxygen Flow Rate 2 2 Fraction of Inspired Oxygen 28 Fraction of Inspired Oxygen 28 SaO2/FiO2 Ratio 346 Oxygen Delivery Method Room Air Oxygen Flow Rate 2 Narrative Exam Narrative: She is alert and oriented x3. No apparent distress She is lacks some insight into why she has been restricted to not walking on her own in her room. Heart is regular rate and rhythm without murmur Lungs are clear to auscultation bilaterally Extremities have no ankle edema Objective Labs Result Diagrams: 02/15/22 03:40 02/15/22 03:40 Labs: Laboratory Results - last 24 hr 02/15/22 02/15/22 03:40 03:40 WBC 14.2 H RBC 2.60 L Hgb 8.1 L Hct 25.0 L MCV 96.0 MCH 31.1 MCHC 32.4 RDW 14.7 Plt Count 445 H Neut % (Auto) 78.1 H Lymph % (Auto) 12.5 L [place] % (Auto) 5.7 Eos % (Auto) 2.7 Baso % (Auto) 1.0 Neut # (Auto) 70349 H Lymph # (Auto) 1800 [place] # (Auto) 800 Eos # (Auto) 400 Baso # (Auto) 100 Sodium 135 L Potassium 4.2 Chloride 95 L Carbon Dioxide 35 H BUN 12 Creatinine 0.61 Estimated GFR > 60 BUN/Creatinine Ratio 19.7 Glucose 96 Calcium 8.2 L Magnesium 1.6 PFSH Medical History Alcohol dependence Anemia Anxiety Chronic back pain (~2013) COVID-19 virus infection Degenerative joint disease (DJD) of lumbar spine (~1975) Hyperlipidemia Hypertension Osteoarthritis (~2013) Pneumonia Rheumatoid arthritis (~2009) Scoliosis (~1975) Tobacco dependence Surgical History Anesthesia History of amputation of toe (~2018) History of incision and drainage (03/19/20) Status post left foot surgery (08/23/20) Family History Father Cancer Hypertension Hyperlipidemia Mother Hypertension Brother Testicular cancer Hypertension Brother Diabetes mellitus Hypertension Hyperlipidemia Social History household members: significant other Smoking Status: Current every day smoker Tobacco: How many years used: 40 quit status: quit date established (September 08 2020) second hand exposure: No alcohol intake: current substance use type: does not use Assessment & Plan Assessment & Plan narrative: [address] [address] Assessment & Plan Assessment & Plan narrative: 1.? Acute hypoxic respiratory failure, improving -secondary to MSSA, MRSA bacterial pneumonia with parapneumonic effusion. -ultrasound thoracentesis of right pleural effusion on 02/08 consistent with loculated pleural effusion, general surgery placed chest tube on 02/10 -chest tube was draining straw colored fluid, likely due to parapneumonic effusion over empyema -chest tube removed on 02/13/22 -continue doxycycline by mouth for 1 week post chest tube removal which would be through 02/20/2022 -currently on 2 L nasal cannula -continue RT nebulizer therapies 2. COVID pneumonia with superimposed bacterial pneumonia secondary to MRSA -continued steroid and remdesivir through 02/09/2022 to complete 10 day course (methylprednisolone switched back to dexamethasone by [facility] ICU) -management of MRSA pneumonia with loculated right parapneumonic effusion with doxycycline and chest tube, as documented above 3. E coli urinary infection, present on admission, treated -completed week course of Rocephin through 02/10/2022 4. Acute alcohol withdrawal and metabolic encephalopathy, resolved -patient is back on her home meds pregabalin, venlafaxine and nortriptyline -had also been started on Seroquel which was discontinued on 02/14 5. Septic shock, resolved -due to pneumonia and acute cystitis (secondary to MSSA and MRSA based on sputum cultures, urinary infection with E. coli). -prior cultures staph epidermidis blood culture - likely contaminant 6. PAUL, present on admission, resolved ?- secondary to septic shock 7.? Tobacco dependence -nicotine patch 8.? History of rheumatoid arthritis -patient is off her leflunomide due to active infection, but can probably be restarted in a few weeks -patient had knee replacement scheduled with Dr. Latrice Saleh in early March which will need to be postponed until she is more fully recovered 9. Normocytic Anemia -Hgb stable at 8.1. -Check Iron level, B12 and begin taking FeSO4 with Vitamin C on 02/15/22. -Follow CBC Continue PT and OT.? Patient is medically stable and would benefit from SNF rehab. Time Spent With Patient Critical Care time: I spent a total of [] minutes of critical care time on this patient's care today; this time is exclusive of procedural time.
[2022-02-15] MEDS: ASCORBIC ACID 500 MG TABLET PO (14:56)
[2022-02-15] MEDS: FERROUS SULFATE 325 MG TABLET PO (14:56)
--- NOTE | 2022-02-15 15:20 | PT.IPTN ---
Current Diagnoses Alcohol dependence, uncomplicated (01/30/22) Pneumonia, unspecified organism (01/30/22) Pleural effusion, not elsewhere classified (01/30/22) Acute respiratory failure, unspecified whether with hypoxia or hypercapnia (01/30/22) Acute respiratory failure with hypoxia (01/30/22) Acute respiratory failure with hypercapnia (01/30/22) Rheumatoid arthritis, unspecified (01/30/22) Pain in left knee (01/30/22) Acute kidney failure, unspecified (01/30/22) Other specified abnormal findings of blood chemistry (01/30/22) Unspecified abnormal findings in urine (01/30/22) COVID-19 (01/30/22) Physical Therapy Treatment Note M2 PT-IP Current Condition Start: 02/13/22 16:56 Freq: NEEDED Status: Active Protocol: Document 02/13/22 14:55 AB (Rec: 02/13/22 17:15 AB [id number]) Physical Therapy Current Condition Current Condition Evaluation Date 02/13/22 Treatment Diagnosis Covid; PNA; PAUL, sepsis; difficulty in walking Onset Date 01/30/22 M3 PT-IP Subjective Start: 02/13/22 16:56 Freq: NEEDED Status: Active Protocol: Document 02/15/22 15:20 AW (Rec: 02/15/22 15:43 AW [id number]) Subjective Physical Therapy Visit Type Type Treatment Note Visit Start Time 14:56 Visit Stop Time 15:20 Total Visit Minutes 24 Number of SUPERVISOR COLOR PASTE MIXING Visits 0 Physical Therapy Visit Comments Patient Comments agreeable to do PT M4 PT-IP Mobility and Gait Start: 02/13/22 16:56 Freq: NEEDED Status: Active Protocol: Document 02/15/22 15:20 AW (Rec: 02/15/22 15:43 AW [id number]) PT-Transfer Assessment Sit to and From Stand Sit to and from Stand Maximum Assistance,1 Person Assistance,Use of Upper Extremities Equipment Transfer Assistive Device Gait Belt,Front Wheeled Walker Comments Mobility Comments Pt was sitting up in the chair as PT arrived. Nursing had used diego to transfer her. She sat up and toward front of the seat, initially using BUE for support. She was able to fade UE support and participate in seated reaching activities, reaching across midline to targets at, above, and below shoulder height. She completed A/P weight shifting with her trunk, demonstrating good control in both directions. She worked on trunk rotation with arms across chest. She completed midline sitting up to one minute without UE support. Pt agreed to work on standing. She stood from the chair with max cues for technique and max A. She stood for 20 seconds with FWW support and PT steadying the FWW. In standing , pt was able to maintain standing balance mod A. Sitting was poorly-controlled. Pt repeated standing 3 more times, working up to 30 seconds with min/mod A for balance support in standing. On final rep, she was able to reach back one hand to slow her descent. Pt was left in the chair with call light in reach. PT-Balance Assessment Sitting Balance and Reactions Static Sitting Balance Ability Fair Dynamic Sitting Balance Ability Poor Standing Balance and Reactions Static Standing Balance Ability Poor Dynamic Standing Balance Ability Poor Device Used FWW M5 PT-IP Objective Assessments Start: 02/13/22 16:56 Freq: NEEDED Status: Active Protocol: Document 02/13/22 14:55 AB (Rec: 02/13/22 17:15 AB [id number]) Orientation Orientation/Cognition Level of Alertness Alert Orientation Name,Place,Situation Language Function Ability No Deficits Noted Safety Awareness Decreased Safety Awareness Memory Description Short Term Impaired Gross Range of Motion Lower Extremity ROM Assessment Within Functional Limits Strength Lower Extremity Strength Assessment Bilaterally Impaired Hip 3+/5 Knee 3+/5 Sensation Assessment Sensation Gross Sensation WNL Muscle Tone Muscle Tone WNL Yes M6 PT-IP Treatment Start: 02/13/22 16:56 Freq: NEEDED Status: Active Protocol: Document 02/15/22 15:20 AW (Rec: 02/15/22 15:43 AW [id number]) Physical Therapy Treatment Other Treatments Other Treatment Performed see mobility comments for details M7 PT-IP Assessment and Plan Start: 02/13/22 16:56 Freq: NEEDED Status: Active Protocol: Document 02/15/22 15:20 AW (Rec: 02/15/22 15:43 AW [id number]) PT Summary Assessment and Plan Potential Rehabilitation Potential Fair Summary Impairments Pain,ROM,Strength,Balance, Coordination,Sensation,Tone, Cognition,Bed Mobility, Transfers,Gait,Activity Tolerance Progress Towards Goals Slow Progress due to Medical Issues,Slow Progress due to Activity Tolerance Assessment Summary Sitting balance improved today and pt was able to sit unsupported ~1 minute. She was able to reach outside her base of support in sitting. She stood max A x 1 with FWW for up to 30 seconds. Pt will require SNF rehab to improve strength and mobility. Will continue to assess progress for this highly motivated patient. Goals Bed Mobility Goal Minimal Assistance Transfer Goal Minimal Assistance,Front Wheeled Walker Gait Goal Minimal Assistance,Front Wheel Walker Gait Distance 20 Other Goals improve bed mobility SBA, transfers using FWW SBA, ambulation using FWW SBA 50 ft Days to Meet Goals 10 Frequency of Treatment Frequency Of Treatment Once a Day Treatment Plan Physical Therapy Treatment Plan Bed Mobility Training,Transfer Training,Gait Training, Therapeutic Exercise,Balance Retraining,Discharge Planning, Hot or Cold Pack,Neuromuscular Re-ed,Coordination Retraining ,Manual Therapy Precautions Other Precautions MRSA contact precautions Recommendations To Nursing Amount of Assist Needed Mechanical Lift Discharge Recommendations PT Discharge Recommendations SNF Rehab Transportation Needs at Discharge Wheelchair/Cabulance,Stretcher /Ambulance
[2022-02-15] MEDS: ACETAMINOPHEN 325 MG TABLET 650 MG PO (16:20)
[2022-02-15] MEDS: diphenhydrAMINE 50 MG/ML VIAL 25 MG IV (16:21)
--- NOTE | 2022-02-15 17:36 | PC.NURSE ---
Removed Mari catheter, pt has voided, when pt was standing to urinate, it was noted by this nurse that his epidural was leaking, Dr Lind was notified, wants to stop the epidural and cap until 2100 (12 hrs after the last lovenox shot) then ok to remove epidural. Pt agreeable with this plan.
[2022-02-15] MEDS: OXYCODONE IR 5 MG TABLET PO (18:25)
[2022-02-16] VITALS (26 sets, daily range): BP systolic 114–132; BP diastolic 56–59; PULSE 45–121; RESP 16–23; TEMP 36.7–36.8; O2SAT 73–99
[2022-02-16 04:06] LABS: Add Manual Diff / Slide Review NO; Basophils Absolute Auto 100 /uL (0-100); Basophils Percent Auto 0.9 % (0-2); Eosinophils Absolute Auto 400 /uL (0-450); Eosinophils Percent Auto 2.9 % (2-4); Hematocrit 26.1 % (36-46); Hemoglobin 8.5 g/dL (12.0-16.0); Lymphocytes Absolute Auto 2200 /uL (1100-4500); Lymphocytes Percent Auto 16.5 % (25-40); Mean Corpuscular HGB Conc 32.4 % (30-36); Mean Corpuscular Hemoglobin 31.4 PG (26-34); Monocytes Absolute Auto 800 /uL (0-900); Monocytes Percent Auto 6.3 % (3-14); Neutrophils Absolute Auto 9700 /uL (1500-7000); Neutrophils Percent Auto 73.4 % (50-75); Platelet Count 465 X10^3/uL (150-400); Red Blood Cell Count 2.69 X10^6/uL (4.0-5.2); Red Cell Distribution Width 14.8 % (11.6-14.8); White Blood Cell Count 13.2 X10^3/uL (4.5-11.0)
[2022-02-16 04:17] LABS: Iron 22 ug/dL (37-170)
[2022-02-16 05:06] LABS: Vitamin B12 > 1000 pg/mL (239-931)
[2022-02-16] MEDS: BUDESONIDE 0.5 MG/2 ML NEB INH ×2 (07:37→19:55)
[2022-02-16] MEDS: ALBUTEROL/IPRATROPIUM 3 ML AMPUL INH ×4 (07:37→19:55)
[2022-02-16 08:15] LABS: Percent Iron Saturation 123 % (15-50)
--- NOTE | 2022-02-16 08:23 | P.PN_ITS ---
Subjective Subjective Date Patient Seen: 02/16/22 Interval history: She is seen today on her 17th day of hospitalization for complications of COVID pneumonia with a history of alcoholism.? Have decreased mobility, requiring Tracy lift to transfer from bed to chair.? Patient is a complex discharge planning due to go to SNF for further improvement of mobility. Exam Vital Signs (past 8 hours): - 02/16/22 02:00 02/16/22 05:45 02/16/22 05:45 Temperature 98.2 F Pulse Rate 95 H 77 Respiratory Rate 22 18 Blood Pressure 114/56 L 122/58 L Pulse Oximetry 95 97 97 Oxygen Delivery Method Nasal Cannula Oxygen Flow Rate 2 2 2 02/16/22 07:37 Temperature Pulse Rate 98 H Respiratory Rate 16 Blood Pressure Pulse Oximetry 96 Oxygen Delivery Method Oxygen Flow Rate 2 Fraction of Inspired Oxygen 28 SaO2/FiO2 Ratio 350 Oxygen Delivery Method Nasal Cannula Oxygen Flow Rate 2 Narrative Exam Narrative: General:? Alert pleasant female in no acute distress, patient indicates she is getting better Lungs:? Bilateral diminished breath sounds in general Heart: Regular rhythm, S1 and S2 with no extra sounds or murmurs Extremities:? No pitting edema, able to move all volitionally Neurological:? Affect normal, speech fluent, no unilateral weakness Objective Labs Result Diagrams: 02/16/22 03:19 02/15/22 03:40 Labs: Laboratory Results - last 24 hr 02/16/22 02/16/22 02/16/22 03:19 03:19 03:19 WBC 13.2 H RBC 2.69 L Hgb 8.5 L Hct 26.1 L MCV 97.0 MCH 31.4 MCHC 32.4 RDW 14.8 Plt Count 465 H Neut % (Auto) 73.4 Lymph % (Auto) 16.5 L [place] % (Auto) 6.3 Eos % (Auto) 2.9 Baso % (Auto) 0.9 Neut # (Auto) 9700 H Lymph # (Auto) 2200 [place] # (Auto) 800 Eos # (Auto) 400 Baso # (Auto) 100 Iron 22 L % Saturation Vitamin B12 > 1000 H 02/16/22 03:19 WBC RBC Hgb Hct MCV MCH MCHC RDW Plt Count Neut % (Auto) Lymph % (Auto) [place] % (Auto) Eos % (Auto) Baso % (Auto) Neut # (Auto) Lymph # (Auto) [place] # (Auto) Eos # (Auto) Baso # (Auto) Iron % Saturation 123 H Vitamin B12 [facility] Medical History Alcohol dependence Anemia Anxiety Chronic back pain (~2013) COVID-19 virus infection Degenerative joint disease (DJD) of lumbar spine (~1975) Hyperlipidemia Hypertension Osteoarthritis (~2013) Pneumonia Rheumatoid arthritis (~2009) Scoliosis (~1975) Tobacco dependence Surgical History Anesthesia History of amputation of toe (~2018) History of incision and drainage (03/19/20) Status post left foot surgery (08/23/20) Family History Father Cancer Hypertension Hyperlipidemia Mother Hypertension Brother Testicular cancer Hypertension Brother Diabetes mellitus Hypertension Hyperlipidemia Social History household members: significant other Smoking Status: Current every day smoker Tobacco: How many years used: 40 quit status: quit date established (September 08 2020) second hand exposure: No alcohol intake: current substance use type: does not use Assessment & Plan Assessment & Plan narrative: 1.? Acute hypoxic respiratory failure, improving -secondary to MSSA, MRSA bacterial pneumonia with parapneumonic effusion. -ultrasound thoracentesis of right pleural effusion on 02/08 consistent with loculated pleural effusion, general surgery placed chest tube on 02/10 -chest tube was draining straw colored fluid, likely due to parapneumonic effusion over empyema -chest tube removed on 02/13/22 -continue doxycycline by mouth for 1 week post chest tube removal which would be through 02/20/2022 -currently on 2 L nasal cannula -continue RT nebulizer therapies 2. COVID pneumonia with superimposed bacterial pneumonia secondary to MRSA -continued steroid and remdesivir through 02/09/2022 to complete 10 day course (methylprednisolone switched back to dexamethasone by [facility] ICU) -management of MRSA pneumonia with loculated right parapneumonic effusion with doxycycline and chest tube, as documented above 3. E coli urinary infection, present on admission, treated -completed 1 week course of Rocephin through 02/10/2022 4. Acute alcohol withdrawal and metabolic encephalopathy, resolved -patient is back on her home meds pregabalin, venlafaxine and nortriptyline -had also been started on Seroquel which was discontinued on 02/14 5. Septic shock, resolved -due to pneumonia and acute cystitis (secondary to MSSA and MRSA based on sputum cultures, urinary infection with E. coli). -prior cultures staph epidermidis blood culture - likely contaminant 6. PAUL, present on admission, resolved ?- secondary to septic shock 7.? Tobacco dependence -nicotine patch 8.? History of rheumatoid arthritis -patient is off her leflunomide due to active infection, but can probably be restarted in a few weeks -patient had knee replacement scheduled with Dr. Latrice Saleh in early March which will need to be postponed until she is more fully recovered 9.? Normocytic Anemia -Hgb stable at 8.5 -Check Iron level, B12 and begin taking FeSO4 with Vitamin C on 02/15/22. Vitamin B12 level is high. Has low iron but high % saturation and also ferritin level is pending. -Follow CBC and retic count Continue PT and OT.? Patient is medically stable and would benefit from SNF rehab. Complex discharge planning. DVT prophylaxis: SubQ heparin CODE: Full Proxy: Saqib Saleh, life partner Time Spent With Patient Critical Care time: I spent a total of [] minutes of critical care time on this patient's care today; this time is exclusive of procedural time.
[2022-02-16 08:34] LABS: Ferritin 366 ng/mL (11-264)
--- NOTE | 2022-02-16 10:12 | PT.IPTN ---
Current Diagnoses Alcohol dependence, uncomplicated (01/30/22) Pneumonia, unspecified organism (01/30/22) Pleural effusion, not elsewhere classified (01/30/22) Acute respiratory failure, unspecified whether with hypoxia or hypercapnia (01/30/22) Acute respiratory failure with hypoxia (01/30/22) Acute respiratory failure with hypercapnia (01/30/22) Rheumatoid arthritis, unspecified (01/30/22) Pain in left knee (01/30/22) Acute kidney failure, unspecified (01/30/22) Other specified abnormal findings of blood chemistry (01/30/22) Unspecified abnormal findings in urine (01/30/22) COVID-19 (01/30/22) Physical Therapy Treatment Note M2 PT-IP Current Condition Start: 02/13/22 16:56 Freq: NEEDED Status: Active Protocol: Document 02/13/22 14:55 AB (Rec: 02/13/22 17:15 AB [id number]) Physical Therapy Current Condition Current Condition Evaluation Date 02/13/22 Treatment Diagnosis Covid; PNA; PAUL, sepsis; difficulty in walking Onset Date 01/30/22 M3 PT-IP Subjective Start: 02/13/22 16:56 Freq: NEEDED Status: Active Protocol: Document 02/16/22 10:12 AW (Rec: 02/16/22 10:34 AW [id number]) Subjective Physical Therapy Visit Type Type Treatment Note Visit Start Time 09:37 Visit Stop Time 10:12 Total Visit Minutes 35 Number of LUMP ROLLER Visits 0 Physical Therapy Visit Comments Patient Comments agreeable to do PT M4 PT-IP Mobility and Gait Start: 02/13/22 16:56 Freq: NEEDED Status: Active Protocol: Document 02/16/22 10:12 AW (Rec: 02/16/22 10:34 AW [id number]) PT-Bed Mobility Assessment Supine to Sit Supine to Sit Moderate Assistance,1 Person Assistance,Head of Bed Elevated,Bedrails Scooting Scooting to Edge of Bed Contact Guard Assistance PT-Transfer Assessment Sit to and From Stand Sit to and from Stand Maximum Assistance,1 Person Assistance,Use of Upper Extremities Equipment Transfer Assistive Device Gait Belt,Front Wheeled Walker Transfers Transfer Destination Chair,Bedside Commode Transfer Technique Squat Pivot Transfer Ability Level of Assist Moderate Assistance,2 Person Assistance Comments Mobility Comments Pt was lying in bed as PT arrived. She agreed to sit up and do some exercise at edge of bed. Mod A for supine to sit - mostly for transition from sidelying to sitting. Pt sat with feet on couch cushion and worked on trunk stability . With arms across chest, she was able to weight shift A/P with good control. She also completed trunk rotation with arms crossed. She did reaching exercises and showed some improvement in LUE elevation and control. She completed sit to stand with FWW and stood with legs pressed up against the bed with constant support from PT and cues for anterior weight shift. Pt needed to sit after one minute. She completed seated marching, LAQ with 5 sec hold, hip adduction pillow squeeze, and pressure relief/tricep push. She attempted to stand again but was only able to tolerate 10 seconds and could not effectively weight shift. She indicated she wanted to use the bathroom. PT set up drop arm commode on pt's left side. RN assisted from behind with squat pivot transfer. PT was max A. RN was CGA at gait belt . After bowel movement, pt needed pericare assist in sitting. She then completed squat pivot transfer to the chair on her left side with mod A x 2 for clearing her hips over chair arm. Pt was left in the chair with RN attending. Gait Assessment Comments Gait Comments Pt unable to effectively weight shift for gait. PT-Balance Assessment Sitting Balance and Reactions Static Sitting Balance Ability Fair Dynamic Sitting Balance Ability Fair Standing Balance and Reactions Static Standing Balance Ability Poor Dynamic Standing Balance Ability Poor Device Used FWW M5 PT-IP Objective Assessments Start: 02/13/22 16:56 Freq: NEEDED Status: Active Protocol: Document 02/13/22 14:55 AB (Rec: 02/13/22 17:15 AB [id number]) Orientation Orientation/Cognition Level of Alertness Alert Orientation Name,Place,Situation Language Function Ability No Deficits Noted Safety Awareness Decreased Safety Awareness Memory Description Short Term Impaired Gross Range of Motion Lower Extremity ROM Assessment Within Functional Limits Strength Lower Extremity Strength Assessment Bilaterally Impaired Hip 3+/5 Knee 3+/5 Sensation Assessment Sensation Gross Sensation WNL Muscle Tone Muscle Tone WNL Yes M6 PT-IP Treatment Start: 02/13/22 16:56 Freq: NEEDED Status: Active Protocol: Document 02/16/22 10:12 AW (Rec: 02/16/22 10:34 AW [id number]) Physical Therapy Treatment Education Education Provided Safety Other Treatments Other Treatment Performed see mobility comments for details M7 PT-IP Assessment and Plan Start: 02/13/22 16:56 Freq: NEEDED Status: Active Protocol: Document 02/16/22 10:12 AW (Rec: 02/16/22 10:34 AW [id number]) PT Summary Assessment and Plan Potential Rehabilitation Potential Fair Summary Impairments Pain,ROM,Strength,Balance, Coordination,Sensation,Tone, Cognition,Bed Mobility, Transfers,Gait,Activity Tolerance Progress Towards Goals Slow Progress due to Medical Issues,Slow Progress due to Activity Tolerance Assessment Summary Sitting balance continues to improve. Pt was able to stand one minute with FWW and balance support from PT but could not effectively shift weight for marching in place. Left knee pain is a barrier but general deconditioning also contributes. Pt improved her transfers to squat pivot with mod assist x 2. Due to insurance limitations, she is unlikely to be able to go to SNF. Will need to set up caregiver training if pt can not go to SNF. Pt will need 24 / assist for mobility. Pt's partner works outside the home so extra caregiver support will be needed. Goals Bed Mobility Goal Minimal Assistance Transfer Goal Minimal Assistance,Front Wheeled Walker Gait Goal Minimal Assistance,Front Wheel Walker Gait Distance 20 Other Goals improve bed mobility SBA, transfers using FWW SBA, ambulation using FWW SBA 50 ft Days to Meet Goals 10 Frequency of Treatment Frequency Of Treatment Once a Day Treatment Plan Physical Therapy Treatment Plan Bed Mobility Training,Transfer Training,Gait Training, Therapeutic Exercise,Balance Retraining,Discharge Planning, Hot or Cold Pack,Neuromuscular Re-ed,Coordination Retraining ,Manual Therapy Precautions Other Precautions MRSA contact precautions Recommendations To Nursing Amount of Assist Needed 2 Person Assist,Mechanical Lift Discharge Recommendations PT Discharge Recommendations SNF Rehab Transportation Needs at Discharge Wheelchair/Cabulance,Stretcher /Ambulance
--- NOTE | 2022-02-16 10:47 | CM.DPNOTE ---
DCP: GLENN Horn, assigned to this case. Called [place] to see who the shelter case manager is assigned to this patient, as this could assist in placement. Called the main number, chose option 5 for case management, and was able to leave a message to have assigned shelter case manager back to assist with placement. DC Planning is working on getting patient to a skilled facility, but the barrier is the insurance. P: DCP working on skilled placement, but back up is home with home health. Liliana Velazquez RN/Tax Audit Manager
[2022-02-16] MEDS: PREGABALIN 75 MG CAPSULE 150 MG PO ×2 (10:48→21:34)
[2022-02-16] MEDS: MULTIVITAMIN 1 TABLET 1 TAB PO (10:48)
[2022-02-16] MEDS: ASCORBIC ACID 500 MG TABLET PO (10:48)
[2022-02-16] MEDS: NORTRIPTYLINE HCL 25 MG CAPSULE 50 MG PO (10:48)
[2022-02-16] MEDS: FERROUS SULFATE 325 MG TABLET PO (10:49)
[2022-02-16] MEDS: FOLIC ACID 1 MG TABLET PO (10:49)
[2022-02-16] MEDS: VENLAFAXINE 37.5 MG TABLET PO ×2 (10:49→21:34)
[2022-02-16] MEDS: DOXYCYCLINE HYCLATE 100 MG TABLET PO ×2 (10:49→21:34)
[2022-02-16] MEDS: NYSTATIN CREAM 30 GM 1 APPLIC TOP ×2 (10:50→21:37)
[2022-02-16] MEDS: NICOTINE 14 PATCH 14 MG TOP (10:50)
[2022-02-16] MEDS: SODIUM CHLORIDE 0.9% FLUSH 10 ML IV (10:50)
[2022-02-16] MEDS: OXYCODONE IR 5 MG TABLET PO (10:51)
[2022-02-16] MEDS: diphenhydrAMINE 25 MG TABLET PO ×2 (12:29→17:44)
--- NOTE | 2022-02-16 14:35 | OT.IP.TRT ---
Current Diagnoses Alcohol dependence, uncomplicated (01/30/22) Pneumonia, unspecified organism (01/30/22) Pleural effusion, not elsewhere classified (01/30/22) Acute respiratory failure, unspecified whether with hypoxia or hypercapnia (01/30/22) Acute respiratory failure with hypoxia (01/30/22) Acute respiratory failure with hypercapnia (01/30/22) Rheumatoid arthritis, unspecified (01/30/22) Pain in left knee (01/30/22) Acute kidney failure, unspecified (01/30/22) Other specified abnormal findings of blood chemistry (01/30/22) Unspecified abnormal findings in urine (01/30/22) COVID-19 (01/30/22) Occupational Therapy Treatment Note M2 OT-IP Current Condition Start: 02/13/22 19:12 Freq: Status: Active Protocol: Document 02/13/22 15:37 [facility] (Rec: 02/13/22 19:40 [facility] [id number]) Occupational Therapy Current Condition Current Condition Evaluation Date 02/13/22 Treatment Diagnosis COVID+, PNA, Sepsis, PAUL Diagnosis Onset Date 01/30/22 M3 OT- IP Subjective and Pain Start: 02/13/22 19:12 Freq: Status: Active Protocol: Document 02/16/22 14:00 [facility] (Rec: 02/16/22 15:03 [facility] [id number]) OT- Subjective Occupational Therapy Visit Type Type Treatment Note Visit Start Time 14:00 Visit Stop Time 14:35 Total Visit Minutes 35 Occupational Therapy Visit Comments Patient Comments Pt sitting on the BSC and wanting to get back to the chair and also wanting to work on detangling her hair. Patient/Caregiver Goals To go to skilled rehab. OT Pain Assessment Pain When Pain Assessed At Rest Pain Present Pain Present Pain Reported Location body aches Intensity 8 Scale Used Numeric (0 - 10) M4 OT- IP ADL's Start: 02/13/22 19:12 Freq: Status: Active Protocol: Document 02/16/22 14:00 [facility] (Rec: 02/16/22 15:03 [facility] [id number]) OT [id number] Comments OT Self-Feeding Comments Pt states able to eat now after set-up with her hands. OT ADL-Grooming General Evaluation Grooming Ability Maximum Assistance Comments OT Grooming Comments Pt's hair is very tangled and trying to assist pt to detangle her hair. Pt able to assist minially due to severe tangles. OT ADL-Oral Care Comments Oral Care Comments Not performed. OT ADL-Dressing Comments OT Dressing Comments At this time pt will need MAXA for LB dressing needs. OT ADL-Toileting General Evaluation Toileting Ability Maximum Assistance Comments OT Toileting Comments Pt able to wipe after urination and will need assist after a bowel movement. Pt states has a drop arm commode at home to use. OT ADL-Bathing Comments OT Bathing Comments Sponge bath more appropriate. Pt states has a tub bench at home. M5 OT- IP IADL's Start: 02/13/22 19:12 Freq: Status: Active Protocol: Document 02/13/22 15:37 [facility] (Rec: 02/13/22 19:40 [facility] [id number]) OT-Instrumental Activities of Daily Living Deficits IADL Deficits Identified Deficits Home Safety Awareness Awareness of Need for Assistance at Home Decreased Awareness Ability to Problem Solve Emergency Unable to Problem Solve Situations Home Safety Comments Pt decreased awareness of her deficits and talks of how when she was able to care for herself. Medication Management Medication Management Caregiver Administers Money Management Money Management Caregiver Provides Assistance Meal Preparation Meal Preparation Caregiver Provides Assist Basket Maker Basket Maker Caregiver Provides Assist M6 OT- IP Functional Cognition Start: 02/13/22 19:12 Freq: Status: Active Protocol: Document 02/16/22 14:00 [facility] (Rec: 02/16/22 15:03 [facility] [id number]) Cognitive Factors Limiting Selfcare Function Cognitive Ability Level of Alertness Alert Patient Orientation Name,Place,Situation Attention Span Ability Capable of Focused Attention, Capable of Sustained Attention Ability to Follow Commands Able to Follow One Step Commands Cognitive Comments Cognitive Assessment Comments Pt able to follow command better today for ADl and mobility needs. M7 OT- IP Mobility and Balance Start: 02/13/22 19:12 Freq: Status: Active Protocol: Document 02/16/22 14:00 [facility] (Rec: 02/16/22 15:03 [facility] [id number]) OT-Transfer Assessment Transfers Transfer Ability Moderate Assistance,Maximum Assistance,1 Person Assistance Technique Transfer Destination Bedside Commode,Chair Transfer Technique Squat Pivot Devices Transfer Assistive Devices Gait Belt Comments Mobility Comments Pt able to assist for squat pivot transfer to the right and needing MOD/MAXA X1. Pt states has a wc also at home but unsure if the armrest is removeable. OT- Gait Assessment Comments Gait Ability Comments Transfer only at this time. OT- Balance Assessment Sitting Balance and Reactions Static Sitting Balance Ability Good Dynamic Sitting Balance Ability Fair M8 OT- IP Objective Assessments Start: 02/13/22 19:12 Freq: Status: Active Protocol: Document 02/13/22 15:37 [facility] (Rec: 02/13/22 19:40 [facility] [id number]) OT Gross Range of Motion Upper Extremity Range of Motion Assessment Bilaterally Impaired OT Strength Upper Extremity Strength Assessment Bilaterally Impaired Comments Strength Comments BUE 3-/5 to 3/5 throughout M9 OT- IP Assessment and Plan Start: 02/13/22 19:12 Freq: Status: Active Protocol: Document 02/16/22 14:00 [facility] (Rec: 02/16/22 15:03 [facility] [id number]) OT Summary Assessment and Plan Potential Rehabilitation Potential Good Analytic Complexity at Evaluation High Summary OT Impairments Pain,Range of Motion,Strength, Balance,Coordination, Functional Cognition, Functional Mobility,Self- Feeding,Grooming,Dressing, Toileting,Bathing,Toilet Transfers,Shower Transfers, Activity Tolerance Progress Towards Goals Slow Progress due to Pain,Slow Progress due to Medical Issues,Slow Progress due to Activity Tolerance,Slow Progress due to Cognition Assessment Summary Pt now able to transfer with one person assist mod/MAXA X1. Pt will highly benefit from skilled rehab in addition as pt states to have upcoming Left knee surgery in March and would benefit from skilled rehab to increased her strength, balance, and mobility needs. Pt's significant other to be here at 10AM for caregiver training as so far no authorization for skilled rehab for pt per case management. Goals Grooming Goal Minimal Assistance Dressing Goal Moderate Assistance Toileting Goal Moderate Assistance Bathing Goal Moderate Assistance Toilet Transfer Goal Moderate Assistance Shower Transfer Goal Moderate Assistance Days to Meet Goals 15 Frequency of Treatment Frequency Of Treatment Once a Day Treatment Plan OT Treatment Plan ADL Training,Functional Cognition Training,Functional Mobility,Patient/Family Education,Discharge Planning Other Treatment Recommendations and Next caregiver training Treatment Focus Discharge Recommendations OT Discharge Recommendations SNF Rehab Transportation Needs at Discharge Wheelchair/Cabulance
--- NOTE | 2022-02-16 15:43 | CM.DPC ---
DCP Planning: Per MD, pt making progress and could be medically stable to d/c if SNF was available. Currently no SNF's willing to accept pt's [place] Medicaid at this time due to poor reimbursement. [facility] may be willing to consider if [place] CM could be contacted and help approve a carveout for increased care needs/rehab. SW spoke to PT/OT and pt now able to squat pivot without a diego and aware that SNF is a barrier and would like to do CG training with [employer] [facility] to confirm if home would be safe. LAURA called [facility] and updated on the barriers and option of PP SNF if no SNF willing to accept [place] and also if additional family could come and stay for assist. [facility] coming in this evening but PT/OT likely too late to do CG training as they already worked with pt today. [facility] willing to do CG training tomorrow 02/17/22 at 1000. SW updated PT/OT for plan of CG training tomorrow. Plan: SW to follow closely for contacted Fidel again to determine if SNF an option at d/c and CG training with [facility] tomorrow bedside at 1000 for home planning. GLENN Terry
[2022-02-16] MEDS: HEPARIN 5,000 UNIT/ML VIAL 5000 UNIT SUBCUT (21:33)
[2022-02-16] MEDS: CLOTRIMAZOLE/BETAMETHASONE CRM 15 GM 1 APPLIC TOP (21:37)
[2022-02-17] VITALS (12 sets, daily range): BP systolic 112–123; BP diastolic 59–69; PULSE 99–115; RESP 18; TEMP 36.8; O2SAT 61–99
[2022-02-17 06:15] LABS: Add Manual Diff / Slide Review NO; Basophils Absolute Auto 0 /uL (0-100); Basophils Percent Auto 0.2 % (0-2); Eosinophils Absolute Auto 300 /uL (0-450); Eosinophils Percent Auto 2.5 % (2-4); Hematocrit 25.3 % (36-46); Lymphocytes Absolute Auto 1900 /uL (1100-4500); Lymphocytes Percent Auto 15.8 % (25-40); Mean Corpuscular HGB Conc 31.8 % (30-36); Mean Corpuscular Hemoglobin 30.8 PG (26-34); Mean Corpuscular Volume 97.1 fL (80-100); Monocytes Absolute Auto 900 /uL (0-900); Neutrophils Absolute Auto 8700 /uL (1500-7000); Neutrophils Percent Auto 73.5 % (50-75); Platelet Count 477 X10^3/uL (150-400); Red Blood Cell Count 2.61 X10^6/uL (4.0-5.2); Red Cell Distribution Width 14.8 % (11.6-14.8); White Blood Cell Count 11.8 X10^3/uL (4.5-11.0)
[2022-02-17 06:19] LABS: Reticulocyte Count, Percent 3.4 % (1.1-2.6)
[2022-02-17] MEDS: HEPARIN 5,000 UNIT/ML VIAL 5000 UNIT SUBCUT (06:20)
[2022-02-17 07:56] LABS: Cholesterol 131 mg/dL (140-199); HDL Cholesterol 22 mg/dL (40-60); LDL Cholesterol Calculated 72 mg/dL (<100); Triglycerides 185 mg/dL (35-150)
[2022-02-17 08:04] LABS: Free T3, Triiodothyronine Free 3.64 pg/mL (2.77-5.27); Free T4, Direct Thyroxine 1.69 ng/dL (0.78-2.19)
[2022-02-17 08:17] LABS: Thyroid Stimulating Hormone 1.15 uIU/mL (0.47-4.68)
[2022-02-17 08:35] LABS: Hep C Virus Ab w/Reflex Quant NEGATIVE s/c (NEGATIVE)
[2022-02-17] MEDS: NORTRIPTYLINE HCL 25 MG CAPSULE 50 MG PO (08:43)
[2022-02-17] MEDS: NICOTINE 14 PATCH 14 MG TOP (08:43)
[2022-02-17] MEDS: MULTIVITAMIN 1 TABLET 1 TAB PO (08:44)
[2022-02-17] MEDS: FERROUS SULFATE 325 MG TABLET PO (08:44)
[2022-02-17] MEDS: FOLIC ACID 1 MG TABLET PO (08:44)
[2022-02-17] MEDS: ASCORBIC ACID 500 MG TABLET PO (08:44)
[2022-02-17] MEDS: PREGABALIN 75 MG CAPSULE 150 MG PO (08:44)
[2022-02-17] MEDS: DOXYCYCLINE HYCLATE 100 MG TABLET PO (08:44)
[2022-02-17] MEDS: VENLAFAXINE 37.5 MG TABLET PO (08:44)
[2022-02-17] MEDS: BUDESONIDE 0.5 MG/2 ML NEB INH (09:03)
[2022-02-17] MEDS: CLOTRIMAZOLE/BETAMETHASONE CRM 15 GM 1 APPLIC TOP (09:12)
[2022-02-17] MEDS: NYSTATIN CREAM 30 GM 1 APPLIC TOP (09:12)
--- NOTE | 2022-02-17 09:47 | P.PN_ITS ---
Exam Vital Signs (past 8 hours): - 02/17/22 04:29 02/17/22 05:00 02/17/22 09:05 Temperature 98.2 F Pulse Rate 101 H Respiratory Rate 18 Blood Pressure 118/59 L Pulse Oximetry 93 93 99 Oxygen Delivery Method Nasal Cannula Oxygen Flow Rate 2 2 1 Fraction of Inspired Oxygen 28 SaO2/FiO2 Ratio 350 Oxygen Delivery Method Nasal Cannula Oxygen Flow Rate 1 Narrative Exam Narrative: General:? Alert pleasant female in no acute distress, patient indicates she is getting better Lungs:? Bilateral diminished breath sounds in general Heart: Regular rhythm, S1 and S2 with no extra sounds or murmurs Extremities:? No pitting edema, able to move all volitionally Neurological:? Affect normal, speech fluent, no unilateral weakness Objective Labs Result Diagrams: 02/17/22 04:11 02/15/22 03:40 Labs: Laboratory Results - last 24 hr 02/17/22 02/17/22 02/17/22 04:11 04:11 04:11 WBC 11.8 H RBC 2.61 L Hgb 8.0 L Hct 25.3 L MCV 97.1 MCH 30.8 MCHC 31.8 RDW 14.8 Plt Count 477 H Neut % (Auto) 73.5 Lymph % (Auto) 15.8 L [place] % (Auto) 8.0 Eos % (Auto) 2.5 Baso % (Auto) 0.2 Neut # (Auto) 8700 H Lymph # (Auto) 1900 [place] # (Auto) 900 Eos # (Auto) 300 Baso # (Auto) 0 Percent Retic 3.4 H Triglycerides 185 H Cholesterol 131 L LDL Cholesterol, Calc 72 HDL Cholesterol 22 L TSH Free T4 Free T3 Hepatitis C Antibody 02/17/22 02/17/22 04:11 04:11 WBC RBC Hgb Hct MCV MCH MCHC RDW Plt Count Neut % (Auto) Lymph % (Auto) [place] % (Auto) Eos % (Auto) Baso % (Auto) Neut # (Auto) Lymph # (Auto) [place] # (Auto) Eos # (Auto) Baso # (Auto) Percent Retic Triglycerides Cholesterol LDL Cholesterol, Calc HDL Cholesterol TSH 1.15 Free T4 1.69 Free T3 3.64 Hepatitis C Antibody Negative [facility] Medical History Alcohol dependence Anemia Anxiety Chronic back pain (~2013) COVID-19 virus infection Degenerative joint disease (DJD) of lumbar spine (~1975) Hyperlipidemia Hypertension Osteoarthritis (~2013) Pneumonia Rheumatoid arthritis (~2009) Scoliosis (~1975) Tobacco dependence Surgical History Anesthesia History of amputation of toe (~2018) History of incision and drainage (03/19/20) Status post left foot surgery (08/23/20) Family History Father Cancer Hypertension Hyperlipidemia Mother Hypertension Brother Testicular cancer Hypertension Brother Diabetes mellitus Hypertension Hyperlipidemia Social History household members: significant other Smoking Status: Current every day smoker Tobacco: How many years used: 40 quit status: quit date established (September 08 2020) second hand exposure: No alcohol intake: current substance use type: does not use Assessment & Plan Assessment & Plan narrative: 1.? Acute hypoxic respiratory failure, improving -secondary to MSSA, MRSA bacterial pneumonia with parapneumonic effusion. -ultrasound thoracentesis of right pleural effusion on 02/08 consistent with loculated pleural effusion, general surgery placed chest tube on 02/10 -chest tube was draining straw colored fluid, likely due to parapneumonic effusion over empyema -chest tube removed on 02/13/22 -continue doxycycline by mouth for 1 week post chest tube removal which would be through 02/20/2022 -currently on 2 L nasal cannula -continue RT nebulizer therapies 2. COVID pneumonia with superimposed bacterial pneumonia secondary to MRSA -continued steroid and remdesivir through 02/09/2022 to complete 10 day course (methylprednisolone switched back to dexamethasone by [facility]) -management of MRSA pneumonia with loculated right parapneumonic effusion with doxycycline and chest tube, as documented above 3. E coli urinary infection, present on admission, treated -completed 1 week course of Rocephin through 02/10/2022 4. Acute alcohol withdrawal and metabolic encephalopathy, resolved -patient is back on her home meds pregabalin, venlafaxine and nortriptyline -had also been started on Seroquel which was discontinued on 02/14 5. Septic shock, resolved -due to pneumonia and acute cystitis (secondary to MSSA and MRSA based on sputum cultures, urinary infection with E. coli). -prior cultures staph epidermidis blood culture - likely contaminant 6. PAUL, present on admission, resolved ?- secondary to septic shock 7.? Tobacco dependence -nicotine patch 8.? History of rheumatoid arthritis -patient is off her leflunomide due to active infection, but can probably be restarted in a few weeks -patient had knee replacement scheduled with Dr. Latrice Saleh in early March which will need to be postponed until she is more fully recovered 9.? Normocytic Anemia -Hgb stable at 8.5 -Check Iron level, B12 and begin taking FeSO4 with Vitamin C on 02/15/22. Vitamin B12 level is high. Has low iron but high % saturation and also ferritin level is pending. -Follow CBC and retic count Continue PT and OT.? Patient is medically stable and would benefit from SNF rehab. Complex discharge planning. DVT prophylaxis: SubQ heparin CODE: Full Proxy: Saqib Saleh, life partner Time Spent With Patient Critical Care time: I spent a total of [] minutes of critical care time on this patient's care today; this time is exclusive of procedural time.
--- NOTE | 2022-02-17 10:29 | OT.IP.TRT ---
Current Diagnoses Alcohol dependence, uncomplicated (01/30/22) Pneumonia, unspecified organism (01/30/22) Pleural effusion, not elsewhere classified (01/30/22) Acute respiratory failure, unspecified whether with hypoxia or hypercapnia (01/30/22) Acute respiratory failure with hypoxia (01/30/22) Acute respiratory failure with hypercapnia (01/30/22) Rheumatoid arthritis, unspecified (01/30/22) Pain in left knee (01/30/22) Acute kidney failure, unspecified (01/30/22) Other specified abnormal findings of blood chemistry (01/30/22) Unspecified abnormal findings in urine (01/30/22) COVID-19 (01/30/22) Encounter for general adult medical examination without abnormal findings (01/30/22) Encounter for screening for other viral diseases (01/30/22) Occupational Therapy Treatment Note M2 OT-IP Current Condition Start: 02/13/22 19:12 Freq: Status: Active Protocol: Document 02/13/22 15:37 [facility] (Rec: 02/13/22 19:40 [facility] [id number]) Occupational Therapy Current Condition Current Condition Evaluation Date 02/13/22 Treatment Diagnosis COVID+, PNA, Sepsis, PAUL Diagnosis Onset Date 01/30/22 M3 OT- IP Subjective and Pain Start: 02/13/22 19:12 Freq: Status: Active Protocol: Document 02/17/22 10:00 [facility] (Rec: 02/17/22 11:34 [facility] [id number]) OT- Subjective Occupational Therapy Visit Type Type Treatment Note Visit Start Time 10:00 Visit Stop Time 10:29 Total Visit Minutes 29 Occupational Therapy Visit Comments Patient Comments Pt's significant other present for caregiver training. Patient/Caregiver Goals To go to skilled rehab. OT Pain Assessment Pain When Pain Assessed At Rest Pain Present Pain Present Denied Pain M4 OT- IP ADL's Start: 02/13/22 19:12 Freq: Status: Active Protocol: Document 02/17/22 10:00 [facility] (Rec: 02/17/22 11:34 [facility] [id number]) OT HLH-[id number]-[id number] Comments OT Self-Feeding Comments NOt at meal time. OT ADL-Grooming Comments OT Grooming Comments Not performed. OT ADL-Oral Care Comments Oral Care Comments Not performed. OT ADL-Dressing General Eval Lower Body Dressing Ability Maximum Assistance Comments OT Dressing Comments Pt's significant other able to manage to pull up and down her brief while standing. OT ADL-Toileting General Evaluation Toileting Ability Maximum Assistance Comments OT Toileting Comments Pt's significant other able to safely assist to tu/doff her brief while standing with use of gait belt. Educated best to assist her to wipe by having her to scoot forwards on the BSC. If pt too fatigued best to just use a bed bennett in bed. OT ADL-Bathing Comments OT Bathing Comments Looking to get a tub bench M5 OT- IP IADL's Start: 02/13/22 19:12 Freq: Status: Active Protocol: Document 02/13/22 15:37 [facility] (Rec: 02/13/22 19:40 [facility] [id number]) OT-Instrumental Activities of Daily Living Deficits IADL Deficits Identified Deficits Home Safety Awareness Awareness of Need for Assistance at Home Decreased Awareness Ability to Problem Solve Emergency Unable to Problem Solve Situations Home Safety Comments Pt decreased awareness of her deficits and talks of how when she was able to care for herself. Medication Management Medication Management Caregiver Administers Money Management Money Management Caregiver Provides Assistance Meal Preparation Meal Preparation Caregiver Provides Assist Machine Steak Tenderizer Machine Steak Tenderizer Caregiver Provides Assist M6 OT- IP Functional Cognition Start: 02/13/22 19:12 Freq: Status: Active Protocol: Document 02/17/22 10:00 [facility] (Rec: 02/17/22 11:34 [facility] [id number]) Cognitive Factors Limiting Selfcare Function Cognitive Ability Level of Alertness Alert Patient Orientation Name,Place,Situation Attention Span Ability Capable of Focused Attention, Capable of Sustained Attention Ability to Follow Commands Able to Follow One Step Commands Cognitive Comments Cognitive Assessment Comments Pt able to participate well in caregiver training with her significant other. M7 OT- IP Mobility and Balance Start: 02/13/22 19:12 Freq: Status: Active Protocol: Document 02/17/22 10:00 [facility] (Rec: 02/17/22 11:34 [facility] [id number]) OT- Bed Mobility Assessment Supine to Sit Supine to Sit Assist Minimal Assistance Sit to Supine Sit to Supine Assist Contact Guard Assistance OT-Transfer Assessment Sit to and From Stand Sit to and from Stand Moderate Assistance,Maximum Assistance,1 Person Assistance Transfers Transfer Ability Moderate Assistance,Maximum Assistance,1 Person Assistance Technique Transfer Destination Bed,Bedside Commode,Chair Transfer Technique Squat Pivot Devices Transfer Assistive Devices Gait Belt Comments Mobility Comments Educated significant other how to tu/doff the gait belt and how to transfer the pt. He was able to show good safety and body mechanics for all transfers right and left. Is was recommended going to the right will be easier due to her left knee pain. CECILE to help get her trunk upright from the bed and pt able to get into supine on her own. OT- Gait Assessment Comments Gait Ability Comments Transfer only at this time. OT- Balance Assessment Sitting Balance and Reactions Static Sitting Balance Ability Good Dynamic Sitting Balance Ability Fair Standing Balance and Reactions Static Standing Balance Ability Poor M8 OT- IP Objective Assessments Start: 02/13/22 19:12 Freq: Status: Active Protocol: Document 02/13/22 15:37 [facility] (Rec: 02/13/22 19:40 [facility] [id number]) OT Gross Range of Motion Upper Extremity Range of Motion Assessment Bilaterally Impaired OT Strength Upper Extremity Strength Assessment Bilaterally Impaired Comments Strength Comments BUE 3-/5 to 3/5 throughout M9 OT- IP Assessment and Plan Start: 02/13/22 19:12 Freq: Status: Active Protocol: Document 02/17/22 10:00 [facility] (Rec: 02/17/22 11:34 [facility] [id number]) OT Summary Assessment and Plan Potential Rehabilitation Potential Good Analytic Complexity at Evaluation High Summary OT Impairments Pain,Range of Motion,Strength, Balance,Coordination, Functional Cognition, Functional Mobility,Self- Feeding,Grooming,Dressing, Toileting,Bathing,Toilet Transfers,Shower Transfers, Activity Tolerance Progress Towards Goals Progressing Toward Goals Assessment Summary Pt progressing well and her significant other able to participate in caregiver training and able to shoe good safety and body mechanics to be able to assist for bed mobility, transfer to the BSC, bed, and recliner, and assist with toileting needs. Pt still would better benefit from going to skilled rehab. per case management no authorization for SNF at this time and therefore pt may end up going home with 31/08 assist and home health. Goals Grooming Goal Minimal Assistance Dressing Goal Moderate Assistance Toileting Goal Moderate Assistance Bathing Goal Moderate Assistance Toilet Transfer Goal Moderate Assistance Shower Transfer Goal Moderate Assistance Days to Meet Goals 10 Frequency of Treatment Frequency Of Treatment Once a Day Treatment Plan OT Treatment Plan ADL Training,Functional Cognition Training,Functional Mobility,Patient/Family Education,Discharge Planning Discharge Recommendations OT Discharge Recommendations SNF Rehab Other Discharge Recommendations Otherwise if SNF not approved home with 31/08 assist and home health Transportation Needs at Discharge Private Vehicle,Wheelchair/ Cabulance
--- NOTE | 2022-02-17 11:20 | CM.DPC ---
DCP Discharge Home with HH Per MD, pt remains medically stable to d/c today and aware no SNFs willing to accept pt's [place] [employer] insurance. PT/OT completed CG training with pt and [facility] bedside this morning and confirmed, SNF would be ideal but pt and Sig other can safely manage at home with HH. SW unable to secure SNF in [facility] due to [place] [employer]. SW called [facility] and they are not currently accepting [place]. SW called [facility] and they can accept the referral and insurance but does not typically cover a bath aide but they could provide this initially for extra support at d/c. SW discussed pt may be a good candidate for their HACH program and they will review to determine if pt meets criteria for this. LAURA faxed referral to [facility] along with F2F and HH orders for review. LAURA met bedside with pt and Sig other and discussed plan of d/c and provided [facility] brochure and the [employer] equipment list for [facility] and [facility] calling now to secure a w/c to get into the home via ramp. RN provided d/c instructions and no further concerns at this time. Plan: Patient to d/c home via [facility] POV this afternoon with [facility] to follow and no further SW needs at this time. GLENN Terry
[2022-02-17] MEDS: ALBUTEROL/IPRATROPIUM 3 ML AMPUL INH (11:37)
--- NOTE | 2022-02-17 16:13 | PM.DS.1 ---
History of Present Illness History of Present Illness Date Patient Seen: 02/17/22 Time Patient Seen: 15:00 Chief complaint: Sent by Dr. murcia distress Narrative: Ms. Hollins is a 62W with PMH anxiety, rheumatoid arthritis, active smoker with tobacco abuse, HTN, HL who presents today with shortness of breath. She has had a cough and nasal congestion. She has had some right sided chest pain with. She has been on steroids for rheumatoid, but this has been stopped ude to recent COVID infection. Her shortness of breath is worse with exertion. In the ED workup was done, vitals notable for tachycardia, pulse ox in the 80s, she was placed on nasal cannula. Labs notable for WBC 27.8, creatinine 2.03. BNP 1500, trop 0.013. Lactate 1.4. Procal 3.86. UA with leuk esterase. Chest xray with right sided lung consolidation. She was given antibiotics and admitted for further treatment. Discharge Providers Provider Date of admission: 01/30/22 14:10 Discharge Date: 02/17/22 Primary care physician: NOLAN Webber Consults: 01/30/22 15:30 Consult to Support Group Manager Routine Comment: 01/30/22 23:58 Consult to Tele-tank inspector Routine Comment: Consulting Provider: Raul Tele-intensivists Reason for consultation: Ditcher Operator services Has provider been notified: Yes 02/02/22 10:30 Consult to Dietitian, Adult Routine Comment: Reason For Exam: initiation of tube feeds 02/08/22 16:01 Consult to General Surgery Routine Comment: Consulting Provider: Alexys Musa Reason for consultation: pleural effusion, loculated, possible chest tube. Has provider been notified: Yes 02/11/22 14:33 Consult to Speech Therapy Evaluate & Treat Comment: post extubation Physician Instructions: Evaluate and treat 02/13/22 09:27 Consult to Occupational Therapy Evaluate & Treat Comment: Physician Instructions: Evaluate and treat Consult to Physical Therapy Evaluate & Treat Comment: Physician Instructions: Evaluate and Treat 02/17/22 11:58 Consult to Home Health Routine Comment: Septic shock, resp failure Reason For Exam: Set up HH RN/PT/OT/ELECTRONIC DRAFTER for d/c home Discharge provider: Tomas Beckman, DO Summary Hospital Course Discharge Diagnosis: 1.? Acute hypoxic respiratory failure, resolved -secondary to MSSA, MRSA bacterial pneumonia with parapneumonic effusion. -ultrasound thoracentesis of right pleural effusion on 02/08 consistent with loculated pleural effusion, general surgery placed chest tube on 02/10 -chest tube was draining straw colored fluid, likely due to parapneumonic effusion over empyema -chest tube removed on 02/13/22 -weaned to room air -finished course of doxycycline 2. COVID pneumonia with superimposed bacterial pneumonia secondary to MRSA -continued steroid and remdesivir through 02/09/2022 to complete 10 day course (methylprednisolone switched back to dexamethasone by tele ICU) -management of MRSA pneumonia with loculated right parapneumonic effusion with doxycycline and chest tube, as documented above 3. E coli urinary infection, present on admission, treated -completed 1 week course of Rocephin through 02/10/2022 4. Acute alcohol withdrawal and metabolic encephalopathy, resolved -patient is back on her home meds pregabalin, venlafaxine and nortriptyline -had also been started on Seroquel which was discontinued on 02/14 5. Septic shock, resolved -due to pneumonia and acute cystitis (secondary to MSSA and MRSA based on sputum cultures, urinary infection with E. coli). -prior cultures staph epidermidis blood culture - likely contaminant 6. PAUL, present on admission, resolved ?- secondary to septic shock 7.? Tobacco dependence -nicotine patch 8.? History of rheumatoid arthritis -patient is off her leflunomide due to active infection, was restarted on discharge -patient had knee replacement scheduled with Dr. Latrice Saleh in early March which will need to be postponed until she is more fully recovered 9.? Normocytic Anemia -Hgb stable at 8.5 -Check Iron level, B12 and begin taking FeSO4 with Vitamin C on 02/15/22. Vitamin B12 level is high. Has low iron but high % saturation and also ferritin level 366. Time Spent with Patient Time spent: Greater than 30 minutes Exam Vital Signs (past 8 hours): - 02/17/22 09:05 02/17/22 09:00 02/17/22 11:38 Pulse Rate Blood Pressure Pulse Oximetry 99 97 96 Oxygen Delivery Method Nasal Cannula Oxygen Flow Rate 1 2 02/17/22 11:34 02/17/22 11:35 02/17/22 11:35 Pulse Rate 115 H Blood Pressure 123/64 Pulse Oximetry 61 L 94 Oxygen Delivery Method Oxygen Flow Rate Fraction of Inspired Oxygen 28 SaO2/FiO2 Ratio 350 Oxygen Delivery Method Nasal Cannula Oxygen Flow Rate 1 Narrative Exam Narrative: General:? Alert pleasant female in no acute distress, patient indicates she is getting better Lungs:? Bilateral diminished breath sounds in general Heart: Regular rhythm, S1 and S2 with no extra sounds or murmurs Extremities:? No pitting edema, able to move all volitionally Neurological:? Affect normal, speech fluent, no unilateral weakness Objective Labs Result Diagrams: 02/17/22 04:11 02/15/22 03:40 Labs: Laboratory Results - last 24 hr 02/17/22 02/17/22 02/17/22 04:11 04:11 04:11 WBC 11.8 H RBC 2.61 L Hgb 8.0 L Hct 25.3 L MCV 97.1 MCH 30.8 MCHC 31.8 RDW 14.8 Plt Count 477 H Neut % (Auto) 73.5 Lymph % (Auto) 15.8 L Frederick % (Auto) 8.0 Eos % (Auto) 2.5 Baso % (Auto) 0.2 Neut # (Auto) 8700 H Lymph # (Auto) 1900 Frederick # (Auto) 900 Eos # (Auto) 300 Baso # (Auto) 0 Percent Retic 3.4 H Triglycerides 185 H Cholesterol 131 L LDL Cholesterol, Calc 72 HDL Cholesterol 22 L TSH Free T4 Free T3 Hepatitis C Antibody 02/17/22 02/17/22 04:11 04:11 WBC RBC Hgb Hct MCV MCH MCHC RDW Plt Count Neut % (Auto) Lymph % (Auto) Frederick % (Auto) Eos % (Auto) Baso % (Auto) Neut # (Auto) Lymph # (Auto) Frederick # (Auto) Eos # (Auto) Baso # (Auto) Percent Retic Triglycerides Cholesterol LDL Cholesterol, Calc HDL Cholesterol TSH 1.15 Free T4 1.69 Free T3 3.64 Hepatitis C Antibody Negative [facility] Medical History Alcohol dependence Anemia Anxiety Chronic back pain (~2013) COVID-19 virus infection Degenerative joint disease (DJD) of lumbar spine (~1975) Hyperlipidemia Hypertension Osteoarthritis (~2013) Pneumonia Rheumatoid arthritis (~2009) Scoliosis (~1975) Tobacco dependence Surgical History Anesthesia History of amputation of toe (~2019) History of incision and drainage (03/19/20) Status post left foot surgery (08/23/20) Family History Father Cancer Hypertension Hyperlipidemia Mother Hypertension Brother Testicular cancer Hypertension Brother Diabetes mellitus Hypertension Hyperlipidemia Social History household members: significant other Smoking Status: Current every day smoker Tobacco: How many years used: 40 quit status: quit date established (September 08 2020) second hand exposure: No alcohol intake: current substance use type: does not use Discharge Plan Discharge Plan Patient Disposition: Home Health Service Provider Discharge Comment: You were admitted for severe alcohol withdrawals and developed a pneumonia from MRSA. You were very sick and needed to be on a ventilator for several days but improved and eventually was able to be extubated and now you aren't requiring oxygen. I've sent the cream for your back to your pharmacy as well as nicotine patches to help you stop smoking. Please stop your HCTZ blood pressure med until you can f/u with your PCP, as your blood pressure is borderline low and your sodium is a little low. You may resume the rest of your meds. Discharge orders & Medications Prescriptions: New nicotine 14 mg/24 hr Patch 24 Hour 14 mg topical DAILY Qty: 28 0RF clotrimazole-betamethasone 1-0.05 % Cream 1 applic topical BID Qty: 45 1RF Rx Instructions: apply to back. use until rash resolves oxycodone 5 mg Tablet 5 mg PO Q4HR PRN (Reason: Pain, Moderate (4-6)) Qty: 15 0RF Continued leflunomide 20 mg tablet 20 mg PO DAILY Qty: 90 1RF colchicine 0.6 mg capsule See Rx Instructions .ROUTE .COMPLEX Qty: 180 0RF Dose Instruction: Take 1 capsule by mouth twice daily Rx Instructions: Take 1 capsule by mouth twice daily atorvastatin 20 mg tablet 20 mg PO DAILY Qty: 90 3RF Rx Instructions: Take 1 tab at bedtime daily for elevated cholesterol metoprolol tartrate 50 mg tablet 50 mg PO BID Qty: 180 3RF Rx Instructions: Take 1 tab twice per day for high blood pressure nortriptyline 50 mg capsule 50 mg PO DAILY Qty: 90 3RF Rx Instructions: Take 1 capsule at bedtime daily for depression and chronic pain pregabalin 150 mg capsule 150 mg PO BID Qty: 180 3RF Rx Instructions: Take 1 capsule twice per day for chronic pain venlafaxine 37.5 mg capsule,extended release 24hr 37.5 mg PO 2XD Rx Instructions: Take 1 capsule at bedtime daily for depression and anxiety Discontinued hydrochlorothiazide 25 mg tablet 25 mg PO DAILY Qty: 90 3RF Rx Instructions: Take 1 tab in the morning daily for high blood pressure Follow up/Referrals: Lala Partida ARNP [Primary Care Provider] - 2 Weeks Visit Report/Discharge Packet Stand Alone Forms: Patient Portal/API, Stroke Signs & Symptoms Discharge Data Primary Care Provider: Lala Partida
[2022-02-25 08:00] LABS: Bacteria Det by PCR Univ WA DETECTED
[2022-03-03 14:32] LABS: Miscellaneous to LabCorp 7.9
[2022-03-03 14:44] LABS: Miscellaneous to LabCorp 3.3
[2022-03-03 14:45] LABS: Miscellaneous to LabCorp 130
[2022-03-03 14:47] LABS: Miscellaneous to LabCorp 0.6
== END 2022-02-17 12:07 | disposition home health service (06) | DRG 871 ==
LOC: ED 13:53 → AC 14:11 → ICU 01-31 01:44
PROVIDERS: Emergency Medicine; Family Medicine; Internal Medicine; Internal Medicine Critical Care Medicine; Neuromusculoskeletal Medicine, Sports Medicine; Nurse Practitioner Family; Admitting Provider Internal Medicine; Emergency Provider Emergency Medicine; PCP Nurse Practitioner; Referring Provider Emergency Medicine; Visit Provider Internal Medicine
DX: A41.9 Sepsis, unspecified organism (principal); G93.41 Metabolic encephalopathy; U07.1 COVID-19; R65.21 Severe sepsis with septic shock; J96.01 Acute respiratory failure with hypoxia; J12.82 Pneumonia due to coronavirus disease 2019; J15.211 Pneumonia due to Methicillin susceptible Staphylococcus aureus; J15.212 Pneumonia due to Methicillin resistant Staphylococcus aureus; N17.9 Acute kidney failure, unspecified; N39.0 Urinary tract infection, site not specified; F10.239 Alcohol dependence with withdrawal, unspecified; J90 Pleural effusion, not elsewhere classified; E87.1 Hypo-osmolality and hyponatremia; D84.821 Immunodeficiency due to drugs; I10 Essential (primary) hypertension; F41.9 Anxiety disorder, unspecified; F17.210 Nicotine dependence, cigarettes, uncomplicated; B96.20 Unspecified Escherichia coli [E. coli] as the cause of diseases classified elsewhere; E87.6 Hypokalemia; R79.89 Other specified abnormal findings of blood chemistry; E83.42 Hypomagnesemia; R21 Rash and other nonspecific skin eruption; M06.9 Rheumatoid arthritis, unspecified; E78.5 Hyperlipidemia, unspecified; D64.9 Anemia, unspecified; Z79.899 Other long term (current) drug therapy
CPT/HCPCS: 32551; 36415; 36556; 36592; 36600; 70450; 71045; 71250; 76604; 80048; 80053; 80061; 81003; 81015; 82607; 82728; 82805; 82962; 83540; 83605; 83735; 83880; 84100; 84132; 84145; 84439; 84443; 84478; 84481; 84484; 85007; 85025; 85045; 85379; 85610; 86803; 87040; 87070; 87075; 87077; 87086; 87147; 87150; 87186; 87205; 87493; 87633; 87797; 87801; 89051; 93005; 93010; 93306; 94002; 94003; 94640; 94760; 94799; 96365; 96375; 97110; 97163; 97167; 97530; 97535; 99232; 99233; 99285; 99291; J0692; J0696; J1100; J1200; J1642; J1644; J1940; J2060; J2250; J2543; J2560; J2704; J2920; J2930; J3010; J3475; J7613

== ENCOUNTER → 2022-03-25 11:38 | Outpatient (CLI) | payer OTHER, MEDICAID, SELFPAY ==
[2022-01-30 15:18] VITALS: BMI 25.8
[2022-02-11 08:25] VITALS: PULSE 98; O2SAT 97
[2022-02-11 08:37] VITALS: RESP 14
[2022-02-11 10:04] VITALS: RESP 14
[2022-03-25 12:27] LABS: Add Manual Diff / Slide Review NO; Basophils Absolute Auto 100 /uL (0-100); Basophils Percent Auto 0.5 % (0-2); Eosinophils Absolute Auto 200 /uL (0-450); Eosinophils Percent Auto 1.9 % (2-4); Hematocrit 31.8 % (36-46); Hemoglobin 10.5 g/dL (12.0-16.0); Lymphocytes Absolute Auto 1400 /uL (1100-4500); Lymphocytes Percent Auto 12.9 % (25-40); Mean Corpuscular HGB Conc 33.1 % (30-36); Mean Corpuscular Hemoglobin 28.8 PG (26-34); Mean Corpuscular Volume 86.8 fL (80-100); Monocytes Absolute Auto 500 /uL (0-900); Monocytes Percent Auto 4.6 % (3-14); Neutrophils Absolute Auto 8900 /uL (1500-7000); Neutrophils Percent Auto 80.1 % (50-75); Platelet Count 489 X10^3/uL (150-400); Red Blood Cell Count 3.66 X10^6/uL (4.0-5.2); Red Cell Distribution Width 16.9 % (11.6-14.8); White Blood Cell Count 11.2 X10^3/uL (4.5-11.0)
[2022-03-25 12:39] LABS: Alanine Aminotransferase 12 IU/L (<35); Albumin 3.3 g/dL (3.5-5.0); Albumin Globulin Ratio 0.9 (1.0-2.8); Alkaline Phosphatase 156 U/L (38-126); Aspartate Aminotransferase 19 IU/L (14-36); BUN Creatinine Ratio 14.9 (6-22); Bilirubin Total 0.3 mg/dL (0.2-1.3); Blood Urea Nitrogen 10 mg/dL (7-17); Calcium 8.9 mg/dL (8.4-10.2); Carbon Dioxide 31 mmol/L (22-32); Chloride 98 mmol/L (98-107); Estimated Glomerular Filt Rate > 60 mL/min (>60); Globulin 3.8 g/dL (1.7-4.1); Glucose 91 mg/dL (80-110); HEMOLYSIS < 15 (0-50); Magnesium 1.5 mg/dL (1.6-2.3); Potassium 4.9 mmol/L (3.4-5.1); Sodium 137 mmol/L (137-145); Total Protein 7.1 g/dL (6.3-8.2)
[2022-03-25 13:06] LABS: Free T3, Triiodothyronine Free 4.05 pg/mL (2.77-5.27); Free T4, Direct Thyroxine 1.39 ng/dL (0.78-2.19)
[2022-03-25 13:19] LABS: Thyroid Stimulating Hormone 0.927 uIU/mL (0.47-4.68)
== END ==
PROVIDERS: PCP Nurse Practitioner; Referring Provider Nurse Practitioner; Visit Provider Nurse Practitioner
DX: A41.9 Sepsis, unspecified organism (principal); D64.9 Anemia, unspecified; E87.6 Hypokalemia; I10 Essential (primary) hypertension; J96.00 Acute respiratory failure, unspecified whether with hypoxia or hypercapnia; N17.9 Acute kidney failure, unspecified; U07.1 COVID-19
CPT/HCPCS: 36415; 80053; 83735; 84439; 84443; 84481; 85025

== ENCOUNTER → 2022-05-27 15:19 | Outpatient (CLI) | payer OTHER, MEDICAID, SELFPAY ==
[2022-01-30 15:18] VITALS: BMI 25.8
[2022-02-11 08:25] VITALS: PULSE 98; O2SAT 97
[2022-02-11 08:37] VITALS: RESP 14
[2022-02-11 10:04] VITALS: RESP 14
[2022-05-27 16:49] LABS: Add Manual Diff / Slide Review NO; Basophils Absolute Auto 0 /uL (0-100); Basophils Percent Auto 0.6 % (0-2); Eosinophils Absolute Auto 300 /uL (0-450); Eosinophils Percent Auto 3.7 % (2-4); Hematocrit 36.2 % (36-46); Hemoglobin 11.6 g/dL (12.0-16.0); Lymphocytes Absolute Auto 2500 /uL (1100-4500); Lymphocytes Percent Auto 28.7 % (25-40); Mean Corpuscular Hemoglobin 26.3 PG (26-34); Monocytes Absolute Auto 800 /uL (0-900); Neutrophils Absolute Auto 5100 /uL (1500-7000); Platelet Count 311 X10^3/uL (150-400); Red Blood Cell Count 4.42 X10^6/uL (4.0-5.2); Red Cell Distribution Width 16.5 % (11.6-14.8); White Blood Cell Count 8.8 X10^3/uL (4.5-11.0)
[2022-05-27 17:28] LABS: Alanine Aminotransferase 15 IU/L (<35); Albumin 4.1 g/dL (3.5-5.0); Albumin Globulin Ratio 1.3 (1.0-2.8); Alkaline Phosphatase 91 U/L (38-126); Aspartate Aminotransferase 22 IU/L (14-36); BUN Creatinine Ratio 16.1 (6-22); Bilirubin Total 0.2 mg/dL (0.2-1.3); Blood Urea Nitrogen 14 mg/dL (7-17); C-Reactive Protein Quant 0.9 mg/dL (<1.0); Calcium 9.4 mg/dL (8.4-10.2); Carbon Dioxide 29 mmol/L (22-32); Chloride 102 mmol/L (98-107); Estimated Glomerular Filt Rate > 60 mL/min (>60); Globulin 3.2 g/dL (1.7-4.1); Glucose 83 mg/dL (80-110); HEMOLYSIS < 15 (0-50); Potassium 4.4 mmol/L (3.4-5.1); Sodium 136 mmol/L (137-145); Total Protein 7.3 g/dL (6.3-8.2); Uric Acid 4.9 mg/dL (2.5-6.2)
[2022-05-27 19:23] LABS: Erythrocyte Sedimentation Rate 19 MM/HR (0-20)
[2022-05-27 19:50] LABS: Appearance Urine UA CLEAR; Bilirubin Urine UA NEGATIVE (NEGATIVE); Color Urine UA YELLOW; Glucose Urine UA NEGATIVE (Negative); Ketones Urine UA NEGATIVE (NEGATIVE); Leukocyte Esterase Urine UA NEGATIVE (NEGATIVE); Nitrite Urine UA NEGATIVE (Negative); Occult Blood Urine UA NEGATIVE (Negative); Protein Urine UA NEGATIVE (Negative); Specific Gravity Urine UA <=1.005 (1.000-1.035); Urobilinogen Urine UA 0.2 E.U./dL (0.2)
[2022-05-27 19:52] LABS: pH Urine UA 6.5 (4.5-8.0)
[2022-05-27 20:13] LABS: Bacteria Urine None Seen; Culture Indicated Urine Cult Not Indicated; RBC Urine None Seen (0-5/HPF); Squamous Epithelial Cell Urine 0-1 /HPF (0-5/HPF); WBC Urine None Seen (0-5/HPF)
[2022-05-29 04:08] LABS: Labcorp Hemoglobin (Hb) A1c 5.6 % (4.8-5.6)
== END ==
PROVIDERS: PCP Nurse Practitioner; Referring Provider Orthopaedic Surgery; Visit Provider Orthopaedic Surgery
DX: Z01.818 Encounter for other preprocedural examination (principal); Z01.812 Encounter for preprocedural laboratory examination; R73.9 Hyperglycemia, unspecified; N39.0 Urinary tract infection, site not specified; E79.0 Hyperuricemia without signs of inflammatory arthritis and tophaceous disease
CPT/HCPCS: 36415; 80053; 81001; 83036; 84550; 85025; 85651; 86140; 93005; 93010

== ENCOUNTER 2022-06-09 06:35 | Observation (INO) | payer OTHER, MEDICAID, SELFPAY ==
[2022-01-30 15:18] VITALS: BMI 25.8
[2022-02-11 08:25] VITALS: PULSE 98; O2SAT 97
[2022-02-11 08:37] VITALS: RESP 14
[2022-02-11 10:04] VITALS: RESP 14
[2022-06-03 12:48] VITALS: BMI 24.2
[2022-06-09] VITALS (11 sets, daily range): BP systolic 98–136; BP diastolic 37–71; PULSE 68–101; RESP 10–74; TEMP 35.3–36.7; O2SAT 16–96; BMI 24.2
[2022-06-09] MEDS: LACTATED RINGERS 1,000 ML 42 ML IV ×2 (06:57→09:08)
[2022-06-09] MEDS: VANCOMYCIN 1,000 MG/200 ML PIGGYBACK 200 MG IV (06:57)
[2022-06-09] MEDS: ALBUTEROL 2.5 MG/3 ML NEB (ADULT) INH (07:20)
[2022-06-09 07:28] LABS: COVID19 -Nasal RAPID Negative (Negative)
--- NOTE | 2022-06-09 07:40 | PM.PREOP ---
Pre-operative Note Interval Note History & Physical reviewed/Exam performed by Physician: Yes Changes to H&P: No
--- NOTE | 2022-06-09 07:42 | P.OP_ITS ---
Operative Date/Time/Diagnoses Date of procedure: 06/09/22 Time of procedure: 08:00 Pre-op diagnosis: Severe rheumatoid arthritis with some collapse of the left proximal tibia, left knee osteoarthritis Post-op diagnosis: same Procedure & Clinicians Procedure: Left total knee arthroplasty Same procedure as scheduled: Yes Indications: The patient has had progressively worsening left knee pain with radiographic changes consistent with severe rheumatoid arthritis with collapse of the proximal tibia especially medially and some generalized knee arthritis. Non- operative management has failed and the patient has requested total knee replacement. The risks, benefits and alternatives to surgery were discussed with the patient prior to proceeding. Risks discussed included, but were not limited to, failure to relieve pain, stiffness, infection, nerve damage, deep venous thrombosis, pulmonary embolism, stroke, coma, heart attack, permanent paralysis and , as well as the potential need for eventual revision of the prosthetic. Surgeon: Latrice Saleh Dock Guard: Alonzo Valverde Anesthesia Type: General and Spinal Operative Notes Findings: Severe left knee osteoarthritis, very soft proximal medial tibia, severe defect in the tibia and on the most medial aspect of the medial femoral condyle with significant bone loss. Fragmentation of the bone and multiple fragments noted in an intracapsular region. Adequate stability and range of motion Closure Type: primary Specimen(s): none sent Prosthetic devices, grafts, tissues, transplants, or devices: Saleh and Nephew Journey BCS2 size 5 journey PCS femur, size 3 legion revision tibia with a 12 x 160 stem, +9 poly, 35 x 7-1/2 mm patella Estimated Blood Loss (mL): 250 Blood products transfused: none Tourniquet time (min): 110 Procedure in detail: The patient was seen in the pre-operative area, where the patient identified the left knee as the operative site and this was marked with my initials. The patient received pre-operative antibiotics, and was taken to the operating room and placed on the operative table in the supine position. After satisfactory anesthesia, a part time flexible clerk out was performed. The left leg was encircled with a tourniquet about the proximal thigh, and the leg was prepared from the toes to the tourniquet with ChloroPrep in the usual fashion and draped through sterile drapes. The leg was elevated and exsanguinated with Eschmark bandage and the tourniquet inflated to [250] mmHg pressure. A PA was used throughout the procedure and was essential for critical retraction in order to allow adequate hemostasis and implantation of the components. The knee was approached through an approximately 18 cm incision centered over the patella and carried into the knee through a medial parapatellar arthrotomy. A portion of the medial and lateral meniscus was resected. Soft tissue was carefully mobilized around the patella the patella was measured with a caliper. Bone was resected from the patella and the patellar height was reconstituted with up an appropriate sized patellar component. A cover was then placed on the patella. A small amount of additional medial and lateral meniscus was resected. The distal femur was cut at 5?. A [+2] cut was used. It looked like an appropriate distal femoral cut and the cut was made without difficulty. The bone was saved in case it was necessary for grafting of the proximal tibia. Cultures were taken of synovium, fluid, and proximal tibial bone sent for culture and sensitivity and PCR. An extramedullary guide was used for the tibial cut. 12 mm was resected off the least affected side. There was a very large defect in the proximal medial tibia with softening of the bone. The patient was placed in extension residual medial and lateral meniscus as well as any residual bone was carefully resected. [No] additional tibia was resected. Hemostasis was achieved especially posteriorly. Additional local was injected into the posterior capsule. The extension gap was assessed and additional releases for gap balancing were performed as necessary. It was checked with the gap certified adaptive physical educator. The rotation was assessed and the appropriate size femoral guide was placed on the distal femur and finishing cuts were made. There was no evidence of notching. The 5 in 1 block was placed. The anterior, posterior and chamfer cuts were then made. The posterior osteophytes and soft tissues were then removed. The posterior capsule was injected with part of a mixture of 60 ml 0.25% Marcaine mixed with 20 ml Exparel for post operative pain control. The remainder of this mixture was injected into the capsule and subcutaneous tissues during cement curing. The tibial and femoral components were then placed and the knee placed through a range of motion. Range of motion was [0-130], with good stability throughout the range. Bone was also grafted in the medial aspect of the medial femoral condyle. The trials were then removed, and the tibia was finished. There was softening of the proximal medial tibia. A stem extension was placed on tibia and residual bone was grafted into the proximal medial tibia. The bone was prepared with pulsatile lavage, and dried with a sponge. Cement was applied and the final prosthetics placed. Excess cement was removed during and after cement curing. A brief Betadine soak was performed. After confirming there was no extruded cement posteriorly, the final tibial insert was placed. The knee was copiously irrigated and the tourniquet deflated. Hemostasis was obtained with the Bovie cautery. The capsule was closed with interrupted nonabsorbable suture. The subcutaneous layer was closed with barbed sutures, and the skin with a running 3-0 V-Lock suture and Surgical glue. An Aquacel Ag dressing was applied and the patient was taken to recovery having tolerated the procedure well. Complications: none Post-operative Condition: stable Disposition: Acute Care Plan for aftercare: THE PATIENT WILL BE MAINTAINED ON A STANDARD TOTAL KNEE REPLACEMENT PROTOCOL WITH WEIGHT BEARING TOLERATED. THE PATIENT WILL RECEIVE ASPIRIN AND SEQUENTIAL COMPRESSION DEVICES FOR DVT PROPHYLAXIS. THE PATIENT WILL BE DISCHARGED HOME WHEN SAFE FOR THE HOME ENVIRONMENT.
[2022-06-09] MEDS: ACETAMINOPHEN 325 MG TABLET 975 MG PO (07:44)
[2022-06-09] MEDS: CELECOXIB 200 MG CAPSULE PO (07:44)
[2022-06-09] MEDS: CEFAZOLIN 2 GM/100 ML PREMIX 100 ML IV ×3 (08:20→23:20)
[2022-06-09] MEDS: TRANEXAMIC ACID 1,000 MG VIAL 1000 MG INJ ×2 (08:20→10:32)
--- NOTE | 2022-06-09 08:47 | SUR.OPER ---
Supine on padded OR bed, head on pillow, arms secured on padded arm boards at <90 degrees abduction, legs uncrossed, safety belt at abdomen, tape over blanket over lower right leg. Left leg secured in DeMayo positioner with foam padding and coban
--- NOTE | 2022-06-09 08:56 | P.PCN_ITS ---
Regional Block Pre-procedure Medications: Current Medications Generic Name Dose Route Start Last Admin Trade Name Freq PRN Reason Stop Dose Admin Fentanyl 0 mcg 06/09/22 08:52 Fentanyl 100 Mcg/2 Ml Inj IV Q5MIN PRN Pain, Severe (7-10) Hydromorphone HCl 0 mg 06/09/22 08:52 Hydromorphone 2 Mg Inj IV Q5MIN PRN Pain, Mild (1-3) Hydroxyzine HCl 25 mg 06/09/22 08:52 Hydroxyzine 50 Mg/Ml Inj IM NOW PRN Pain, Mild (1-3) Lactated Ringer's 1,000 mls @ 42 mls/hr 06/09/22 07:00 06/09/22 06:57 Lactated Ringers IV 42 mls/hr CONT MELVIN Administration Lactated Ringer's 1,000 mls @ 42 mls/hr 06/09/22 07:45 06/09/22 07:41 Lactated Ringers IV Not Given CONT MELVIN Lactated Ringer's 1,000 mls @ 120 mls/hr 06/09/22 09:00 Lactated Ringers IV CONT MELVIN Ondansetron HCl 4 mg 06/09/22 08:52 Ondansetron 4 Mg/2 Ml Inj IV NOW PRN Nausea And Vomiting Oxycodone HCl 5 mg 06/09/22 08:52 Oxycodone Ir 5 Mg Tablet PO PACUNOW PRN Mild or moderate pain Tranexamic Acid 1,000 mg 06/09/22 07:37 Tranexamic Acid 1,000 Mg Vial INJ INTRA-OP PRN Bleeding Allergies: Allergies Allergy/AdvReac Type Severity Reaction Status Date / Time lisinopril Allergy Severe angioedema Verified 06/09/22 06:51 --: SAB: Pt with known scoliosis. Minimal landmarks in lumbar area. First two attempts at L3/4 and L4/5 midline unsuccessful. Successful left paramedian at L3/4. +CSF, no parasthesias. 24 g sprotte used, dosed with 1.6 mL 0.75% bupivaca ine Procedure Insertion date: 06/09/22 Insertion time: 08:07 Prep/Local: 1% lidocaine (chlorhexidine used) Interspace: L3/4 Patient position: sitting Sensory level: L T10
[2022-06-09] MEDS: BUPIVACAINE 0.25% (PF) 60 ML, EPINEPHrine 0.3 MG INJ (09:10)
[2022-06-09] MEDS: BUPIVACAINE LIPOSOME 266 MG/20 ML VIAL INJ (09:52)
--- NOTE | 2022-06-09 10:00 | DI.RAD.S_ITS ---
PROCEDURE: XR KNEE LT 1TO2V INDICATIONS: LEFT TOTAL KNEE TECHNIQUE: 2 view(s) of the knee acquired. COMPARISON: [facility] [place], [place], XR KNEE 4+ VIEWS LEFT, 12/24/2021, 16:27. FINDINGS: Bones: Patient is status post knee joint arthroplasty. Hardware components are in expected positions. Visualized bony structures are intact. Soft tissues: Overlying postoperative changes are noted. IMPRESSION: Expected postsurgical changes. Dictated by: Pablito Wynn M.D. on 06/09/2022 at 14:37 Approved by: Pablito Wynn M.D. on 06/09/2022 at 14:38
--- NOTE | 2022-06-09 11:08 | SUR.PHASEI ---
Report called to GITA March.
[2022-06-09] MEDS: OXYCODONE IR 5 MG TABLET PO ×3 (12:15→18:23)
[2022-06-09] MEDS: IBUPROFEN 400 MG TABLET PO ×4 (12:15→23:21)
[2022-06-09] MEDS: ACETAMINOPHEN 325 MG TABLET 650 MG PO ×3 (12:16→23:19)
[2022-06-09] MEDS: AMOXICILLIN/CLAV 875/125 MG 1 TAB PO ×2 (12:17→23:19)
--- NOTE | 2022-06-09 12:28 | PC.NURSE ---
Addendum entered by Sandra Choudhury R.N. 06/09/22 16:00: Patient given another 5mg of oxycodone and helpful. Original Note: Patient to floor around 1130. She had a left total knee done. Patienthad a prior surgery her left foot called the alvino procedure. She had her joints taken out of her foot and she has a metal plate in her large toe. She had covid around january and was in our hospital vented for 12 days. Patient is also being treated for a lung abcess and taking oral augmentin for this. She states that the abcess was deep and that they did not do surgery. She states that this is almost healed. Patient has been using a wheel chair at home for the last few months. She is hoping that this surgery to her l. knee will help improve her gait so that she can ambulate better. She has a Claritza dressing in place to left knee that is cdi, with little square motor flashing green. She stated that her pain was a 6/10. Medicated with ibuprofen, tylenol, and 5mg of oxycodone. Will reassess pain in one hour. She has LR 100cc/hr infusing and she is tolerating this well.
--- NOTE | 2022-06-09 12:29 | PC.NURSE ---
Addendum entered by Frankie Gayle 06/09/22 12:35: CMS in tact in all extremities. Original Note: Pt arrived approximately 11:30 s/p left total knee replacement. Claritza dressing with HELADIO wrap is clean, dry, in tact over surgical site. Pain in knee is reported as 6/10, patient medicated with oxycodone IR at 12:15. Patient is alert and oriented to person, place, time, and event.
--- NOTE | 2022-06-09 14:48 | PT.IIE ---
Current Diagnoses Rheumatoid arthritis, unspecified (06/09/22) Pain in left knee (06/09/22) Surgery Performed Operation Date: 06/09/22 07:45 Actual Procedures p Total Knee Arthroplasty(Left) - Latrice Saleh MD Surgical History (Last Updated 06/03/22 @ 13:51 by Michaela Wilson, RN) Anesthesia History of amputation of toe (~2018) History of incision and drainage (03/19/20) Hx of chest tube placement (2021) Status post left foot surgery (08/23/20) Medical History (Last Updated 06/03/22 @ 13:45 by Michaela Wilson RN) Alcohol dependence Anemia Anxiety Chronic back pain (~2013) Chronic respiratory failure COVID-19 virus infection (01/30/22) Degenerative joint disease (DJD) of lumbar spine (~1975) Hyperlipidemia Hypertension Osteoarthritis (~2013) Pneumonia Rheumatoid arthritis (~2009) Scoliosis (~1975) Tobacco dependence Physical Therapy Inpatient Evaluation/Re-Eval M1 PT/OT-IP Prior Functional Status Start: 06/09/22 14:33 Freq: NEEDED Status: Active Protocol: Document 06/09/22 14:34 ES (Rec: 06/09/22 14:48 ES [id number]) Medical Review Prior Functional Status Medical History Reviewed Yes Communication WFL Mobility and Gait Indep with w/c indoors, FWW outdoors Activities of Daily Living and IADL's Indep Social History Household Members significant other Living Arrangements House Number of Floors (Floors) One Floor Number of Stairs To Enter/Railing? 3 with single rail Home Environment Standard Height Toilet,Tub/ Shower Home Equipment Front Wheel Walker,Straight Cane,Manual Wheelchair,Tub Transfer Bench M2 PT-IP Current Condition Start: 06/09/22 14:33 Freq: NEEDED Status: Active Protocol: Document 06/09/22 14:34 ES (Rec: 06/09/22 14:48 ES [id number]) Physical Therapy Current Condition Current Condition Evaluation Date 06/09/22 Treatment Diagnosis s/p L TKA Onset Date 06/09/22 M3 PT-IP Subjective Start: 06/09/22 14:33 Freq: NEEDED Status: Active Protocol: Document 06/09/22 14:34 ES (Rec: 06/09/22 14:48 ES [id number]) Subjective Physical Therapy Visit Type Type Initial Evaluation Visit Start Time 13:57 Visit Stop Time 14:29 Total Visit Minutes 32 Physical Therapy Visit Comments Patient Comments Patient alert in bed, requesting to get up to the commode. SO present. Patient reported she hasn't stood on her L leg in a long time and is a bit nervous to do so. She stated her leg didn't straighten all the way and couldn't bend very far prior to surgery. Patient Goals To be able to walk normally again. Therapy Pain Assessment Pain When Pain Assessed During Mobility Pain Present Pain Present Pain Reported Location Generalized Intensity 7 Scale Used Numeric (0 - 10) Description With Movement Pain Management Techniques Apply Cold,Elevation,Re- positioning M4 PT-IP Mobility and Gait Start: 06/09/22 14:33 Freq: NEEDED Status: Active Protocol: Document 06/09/22 14:34 ES (Rec: 06/09/22 14:48 ES [id number]) PT-Bed Mobility Assessment Supine to Sit Supine to Sit Moderate Assistance,Head of Bed Elevated,Bedrails Sit to Supine Sit to Supine Minimal Assistance,Bedrails Scooting Scooting to Edge of Bed Minimal Assistance Scooting Up and Down in Bed Independent PT-Transfer Assessment Sit to and From Stand Sit to and from Stand Minimal Assistance,Use of Upper Extremities Equipment Transfer Assistive Device Gait Belt,Front Wheeled Walker Orthotic/Prosthetic Devices or Brace: No Transfers Transfer Destination Bedside Commode Transfer Technique Stand Pivot Transfer Ability Level of Assist Contact Guard Assistance,Use of Upper Extremities Comments Mobility Comments Stand pivot transferred bed to /from BSC using FWW with cues for hand placement and L foot forward to reduce pain and increase safety. Performed weight shifting at FWW to improve WB onto L side. Able to perform stand step pivot back to EOB afterward. Gait Assessment Gait Gait Assistance Required: Contact Guard Assist Distance (Feet) 2 Able to Maintain Weight Bearing Status Yes During Gait Assistive Devices Assistive Device Gait Belt,Front Wheeled Walker Gait Deviations General Gait Pattern Antalgic,Step-to Gait Factors Limiting Gait Function Factors Limiting Gait Function Decreased Strength,Pain Comments Gait Comments Instructed in sequencing (FWW, then L foot, then R foot) and on increasing WB onto LLE as tolerated to initiate ambulation. PT-Balance Assessment Sitting Balance and Reactions Static Sitting Balance Ability Good Dynamic Sitting Balance Ability Good Standing Balance and Reactions Static Standing Balance Ability Fair Dynamic Standing Balance Ability Fair Device Used FWW M5 PT-IP Objective Assessments Start: 06/09/22 14:33 Freq: NEEDED Status: Active Protocol: Document 06/09/22 14:34 ES (Rec: 06/09/22 14:48 ES [id number]) Orientation Orientation/Cognition Level of Alertness Alert Orientation Name,Age,Birthday,Month,Date, Year,Day of Week,Place, Situation Language Function Ability No Deficits Noted Safety Awareness Understands Safety Issues Memory Description No Deficits Noted Gross Range of Motion Upper Extremity ROM Assessment Within Functional Limits Lower Extremity ROM Assessment Left Impaired Impairments L knee flexion grossly 10-65 degrees Strength Upper Extremity Strength Assessment Within Functional Limits Lower Extremity Strength Assessment Left Impaired Comments Strength Comments Decreased strength throughout LLE with muscle atrophy noted from disuse. Coordination Assessment Gross Coordination Gross Coordination WNL Sensation Assessment Sensation Gross Sensation WNL M6 PT-IP Treatment Start: 06/09/22 14:33 Freq: NEEDED Status: Active Protocol: Document 06/09/22 14:34 ES (Rec: 06/09/22 14:48 ES [id number]) Physical Therapy Treatment Exercises Exercises Ankle Pumps,Quad Sets,Heel Slides Education Education Provided Precautions,Weight Bearing Status,Post-Op Packet,Safety M7 PT-IP Assessment and Plan Start: 06/09/22 14:33 Freq: NEEDED Status: Active Protocol: Document 06/09/22 14:34 ES (Rec: 06/09/22 14:48 ES [id number]) PT Summary Assessment and Plan Potential Rehabilitation Potential Good Status of Condition at Evaluation Stable Summary Impairments Pain,ROM,Strength,Bed Mobility ,Transfers,Gait Assessment Summary Patient is a 62 year old female s/p L TKA with impaired mobility due to pain, stiffness, and weakness. She has a hx of RA and has been essentially w/c bound prior to surgery. She was able to transfer to [facility] using FWW and able to initiate gait at EOB with difficulty due to weakness and stiffness. Patient able to initiate HEP but quite painful, likely due to pre-surgery stiffness. She will benefit from further skilled PT to instruct in HEP, progress gait, and review post-op instructions prior to d/c home with SO. Goals Bed Mobility Goal Independent Transfer Goal Standby Assistance,Front Wheeled Walker Gait Goal Standby Assistance,Front Wheel Walker Gait Distance 50 Other Goals Patient will be able to ascend /descend 3 stairs with single rail and LRAD with CGA. Patient will be indep with TKA HEP. Patient will demonstrate 90 degrees L knee flexion. Days to Meet Goals 3 Frequency of Treatment Frequency Of Treatment Twice a Day Treatment Plan Physical Therapy Treatment Plan Bed Mobility Training,Transfer Training,Gait Training, Therapeutic Exercise,Post Op Education,Discharge Planning, Hot or Cold Pack,Neuromuscular Re-ed,Manual Therapy Other Recommendations and Next Treatment Instruct in the remainder TKA Focus ex's, review post-op packet, progress ambulation. Patient has 3 WILTON with single rail. Weight Bearing Status Weight Bearing Status Weight Bear as Tolerated Recommendations To Nursing Amount of Assist Needed 1 Person Assist Discharge Recommendations PT Discharge Recommendations Home with Assistance, Outpatient PT Transportation Needs at Discharge Private Vehicle
[2022-06-09] MEDS: LACTATED RINGERS 1,000 ML 100 ML IV (16:23)
[2022-06-09] MEDS: ATORVASTATIN 20 MG TABLET PO (20:42)
[2022-06-09] MEDS: NORTRIPTYLINE HCL 25 MG CAPSULE 50 MG PO (20:42)
[2022-06-09] MEDS: ASPIRIN EC 81 MG TABLET PO (20:42)
[2022-06-09] MEDS: DOCUSATE 100 MG CAPSULE PO (20:42)
[2022-06-09] MEDS: METOPROLOL IR 50 MG TABLET PO (20:42)
[2022-06-09] MEDS: VENLAFAXINE 37.5 MG TABLET PO (20:43)
[2022-06-09] MEDS: PREGABALIN 75 MG CAPSULE 150 MG PO (20:43)
--- NOTE | 2022-06-09 22:44 | PC.NURSE ---
Patient is alert and oriented. Breath sounds diminished with crackles in left mid/lower lobed; RA sat s 93%. HRR. Denies nausea. BT present and abdomen is soft; passing flatus. Denies dysuria with urination. Able to move herself in bed. Up to BSC with walker and 1 assist; gait not yet assessed. AMADOU dressing to left knee intact and functioning; small spot of serosanguinous drainage at distal end. Left knee is wrapped with andres bandage. CMS is intact but has decreased ROM of left knee. Endorsed 6/10 left knee pain and was medicated with scheduled Ibuprofen and when able to have more oxycodone patient was asleep. Wearing bilateral calf SCD's. Fall risk score is high and bed alarm is activated. Declined to have CBG done at 2100 as stated she is not diabetic; will discuss with MD or PA in the morning.
[2022-06-09] MEDS: OXYCODONE IR 10 MG TABLET PO (23:21)
[2022-06-10 01:06] VITALS: BP 131/73; PULSE 71; RESP 18; TEMP 36.1; O2SAT 93
[2022-06-10] MEDS: IBUPROFEN 400 MG TABLET PO ×3 (03:51→11:53)
[2022-06-10] MEDS: OXYCODONE IR 5 MG TABLET PO ×3 (03:51→11:54)
[2022-06-10 05:27] VITALS: BP 138/69; PULSE 71; RESP 18; TEMP 35.8; O2SAT 94
[2022-06-10] MEDS: ACETAMINOPHEN 325 MG TABLET 650 MG PO ×2 (05:36→11:52)
[2022-06-10 06:12] LABS: Hematocrit 33.5 % (36-46); Hemoglobin 10.8 g/dL (12.0-16.0)
[2022-06-10 07:59] VITALS: BP 123/57; PULSE 74; RESP 16; TEMP 36.2; O2SAT 94
--- NOTE | 2022-06-10 08:43 | P.DS_ITS ---
History of Present Illness History of Present Illness Date Patient Seen: 06/10/22 Time Patient Seen: 08:44 Chief complaint: Knee pain Narrative: Patient's pain is [id number]. Denies fever or chills. No nausea vomiting. Discharge Providers Provider Date of admission: 06/09/22 06:35 Discharge Date: 06/10/22 Primary care physician: NOLAN Webber Consults: 06/09/22 07:37 Consult to Anesthesiology Routine Comment: Consulting Provider: Anesthesiologist Reason for consultation: Regional block for post operative pain control 06/09/22 11:27 Consult to Discharge Planning Routine Comment: Consult to Physical Therapy Evaluate & Treat Comment: Physician Instructions: postop TKA protocol Discharge provider: Alonzo Valverde PA-C Summary Hospital Course Discharge Diagnosis: Severe rheumatoid arthritis with some collapse of the left proximal tibia, left knee osteoarthritis Hospital Course: Left total knee arthroplasty Same procedure as scheduled: Yes Indications: The patient has had progressively worsening left knee pain with radiographic changes consistent with severe rheumatoid arthritis with collapse of the proximal tibia especially medially and some generalized knee arthritis. Non- operative management has failed and the patient has requested total knee replacement. The risks, benefits and alternatives to surgery were discussed with the patient prior to proceeding. Risks discussed included, but were not limited to, failure to relieve pain, stiffness, infection, nerve damage, deep venous thrombosis, pulmonary embolism, stroke, coma, heart attack, permanent paralysis and , as well as the potential need for eventual revision of the prosthetic. Surgeon: Latrice Saleh Superintendent Renting Managing: Alonzo Valverde Anesthesia Type: General and Spinal Operative Notes Findings: Severe left knee osteoarthritis, very soft proximal medial tibia, severe defect in the tibia and on the most medial aspect of the medial femoral condyle with significant bone loss.? Fragmentation of the bone and multiple fragments noted in an intracapsular region.? Adequate stability and range of motion Closure Type: primary Specimen(s): none sent Prosthetic devices, grafts, tissues, transplants, or devices: Saleh and Nephew Journey BCS2 size 5 journey PCS femur, size 3 legion revision tibia with a 12 x 160 stem, +9 poly, 35 x 7-1/2 mm patella Estimated Blood Loss (mL): 250 Blood products transfused: none Tourniquet time (min): 110 Patient admitted to hospital for the above-mentioned procedure. Patient consented to the same. Patient underwent left total knee arthroplasty June 09, 2022. Patient back in her room recovering well as in stable condition. Patient will be maintained on standard total knee replacement protocol with weight- bearing as tolerated. Aspirin and SCDs for DVT prophylaxis. Mobilize with physical therapy. Discharge home today after physical therapy if safe for home environment. Status at Discharge Cognitive/behavioral status at discharge: at baseline, oriented Functional status at discharge: uses cane/walker Overall status at discharge: patient is progressing back to baseline Exam Vital Signs (past 8 hours): - 06/10/22 01:06 06/10/22 05:27 06/10/22 07:59 Temperature 97.0 F L 96.5 F L 97.2 F L Pulse Rate 71 71 74 Respiratory Rate 18 18 16 Blood Pressure 131/73 138/69 123/57 L Pulse Oximetry 93 94 94 Oxygen Flow Rate 0 0 0 Oxygen Delivery Method Room Air Oxygen Flow Rate 0 Narrative Exam Narrative: Pleasant 62-year-old female resting comfortably in bed no apparent distress. Dressing is clean, dry and intact. Motor functions intact bilateral lower extremities. Sensation grossly intact to light touch bilateral lower extremities. Const General: cooperative and comfortable Nutritional Appearance: well nourished Orientation: alert HENMT Head: normal to inspection Resp Effort & Inspection: normal respiratory effort and able to speak in complete sentences Objective Labs 06/10/22 05:10 Labs: Laboratory Results - last 24 hr 06/10/22 05:10 Hgb 10.8 L Hct 33.5 L PFSH Medical History Alcohol dependence Anemia Anxiety Chronic back pain (~2013) Chronic respiratory failure COVID-19 virus infection (01/30/22) Degenerative joint disease (DJD) of lumbar spine (~1975) Hyperlipidemia Hypertension Osteoarthritis (~2013) Pneumonia Rheumatoid arthritis (~2009) Scoliosis (~1975) Tobacco dependence Surgical History Anesthesia History of amputation of toe (~2018) History of incision and drainage (03/19/20) Hx of chest tube placement (2021) Status post left foot surgery (08/23/20) Family History Father Cancer Hypertension Hyperlipidemia Mother Hypertension Brother Testicular cancer Hypertension Brother Diabetes mellitus Hypertension Hyperlipidemia Social History household members: significant other Smoking Status: Current every day smoker Tobacco: How many years used: 40 quit status: quit date established (September 08 2020) second hand exposure: No alcohol intake: current substance use type: does not use Discharge Assessment & Plan Assessment and Plan Assessment: Patient progressing as expected Plan of Treatment: Patient will be maintained on standard total knee replacement protocol with weight-bearing as tolerated Aspirin and SCDs for DVT prophylaxis Discharge home today after physical therapy if safe for home environment Discharge Plan Discharge Plan Patient Disposition: Home Discharge orders & Medications Prescriptions: New acetaminophen 325 mg Tablet 650 mg PO Q6H Qty: 60 0RF polyethylene glycol 3350 17 gram Powder In Packet 17 gm PO DAILY PRN (Reason: Constipation) Qty: 20 0RF aspirin 81 mg Tablet,Delayed Release (Dr/Ec) 81 mg PO BID Qty: 60 0RF Continued colchicine 0.6 mg capsule See Rx Instructions .ROUTE .COMPLEX Qty: 180 0RF Dose Instruction: Take 1 capsule by mouth twice daily Rx Instructions: Take 1 capsule by mouth once daily venlafaxine 37.5 mg tablet See Rx Instructions .ROUTE .COMPLEX Qty: 180 3RF Dose Instruction: Take 1 tablet by mouth twice daily Rx Instructions: Take 1 tablet by mouth twice daily pregabalin 150 mg capsule 150 mg PO BID Qty: 180 1RF amoxicillin-pot clavulanate 875-125 mg tablet 1 tab PO Q12H Qty: 28 0RF atorvastatin 20 mg tablet 20 mg PO DAILY Qty: 90 3RF Rx Instructions: Take 1 tab at bedtime daily for elevated cholesterol metoprolol tartrate 50 mg tablet 50 mg PO BID Qty: 180 3RF Rx Instructions: Take 1 tab twice per day for high blood pressure ferrous sulfate 250 mg (50 mg iron) tablet extended release 250 mg PO DAILY Qty: 90 0RF Rx Instructions: Take 1 tab daily for iron deficiency anemia albuterol sulfate 2.5 mg /3 mL (0.083 %) solution for nebulization 2.5 mg inhalation Q4-6H PRN (Reason: shortness of breath) Qty: 180 3RF (DME) Nebulizer See Rx Instructions .Route .MEDSUPPLY Qty: 1 0RF Rx Instructions: Nebulize albuterol every 4-6 hours as needed for shortness of breath nortriptyline 50 mg capsule 50 mg PO BEDTIME Rx Instructions: Take 1 capsule at bedtime daily for depression and chronic pain sulfasalazine 500 mg Tablet 1 g PO BID Rx Instructions: give with food (meal/snack) alendronate 70 mg Tablet 70 mg PO QWEEK hydroxychloroquine 200 mg Tablet 400 mg PO DAILY Follow up/Referrals: Lala Partida ARNP [Primary Care Provider] - Latrice Saleh MD [Physician] - As previously scheduled (Follow up with Jerica Villasenor PA-C, on 06/19/2022 @ 2:30 pm at [facility] in [place].) Diet/Activity/Treatments Diet: Diet as Tolerated Activity: Walk frequently! Cold/Heat Therapy: Ice to knee as needed for pain. Skin/Wound/Dressing Care Report to your healthcare provider any signs of infection, such as:: chills, fever, night sweats, unusual drainage and unusual redness Dressing: May remove HELADIO wrap and shower on June 12. Leave Aquacel dressing in p lace until follow up in office. No bathing or otherwise soaking incision. Leave dressing in place until follow up in office. Visit Report/Discharge Packet Instructions: DI for Knee Replacement Stand Alone Forms: Patient Portal/API, Stroke Signs & Symptoms, [facility] Dis[facility] Data Primary Care Provider: Lala Partida
[2022-06-10] MEDS: FERROUS SULFATE 325 MG TABLET PO (08:58)
[2022-06-10] MEDS: ASPIRIN EC 81 MG TABLET PO (08:59)
[2022-06-10] MEDS: METOPROLOL IR 50 MG TABLET PO (08:59)
[2022-06-10] MEDS: VENLAFAXINE 37.5 MG TABLET PO (08:59)
[2022-06-10] MEDS: PREGABALIN 75 MG CAPSULE 150 MG PO (09:00)
[2022-06-10] MEDS: HYDROXYCHLOROQUINE 200 MG TABLET 400 MG PO (09:00)
[2022-06-10] MEDS: SODIUM CHLORIDE 0.9% FLUSH 10 ML IV (09:01)
--- NOTE | 2022-06-10 09:15 | CM.DANOTE ---
Addendum entered by Liliana Velazquez R.N. 06/10/22 11:31: [place] back from Rachel at [facility], gave her information on patient's PCP. They can accept patient, may be able to see her tomorrow or the next day. Updated patient, gave her brochure for [facility]. Faxed over face sheet, orders, face to face, DC Summary, and P.T. notes. Patient is appreciative, discharging home today. Original Note: DCP: Case received, EMR reviewed and me with patient. Spouse, Saqib was at bedside. Introduced self and role. Was able to obtain information regarding her baseline activity status prior to surgery. DCP assessment completed with information currently available. Patient is a 62 year old female who admitted yesterday morning to the care of the orthopedic team. PCP: NOLAN Webber. Payer: confirmed: [place]/Medicaid. Patient came to the hospital for a surgical procedure. She had left total knee arthroplasty. Patient has history of rheumatoid arthritis, with collapse of left proximal tibia. Met with patient and spouse in the room. Patient is alert and oriented, pleasant. Confirmed that patient resides in [place], with spouse, Saqib. At her baseline, she does have a wheel-chair, can use a FWW, and spouse drives her to appointments. She has three steps to get into the house. Discussed her outpatient appointment for P.T. Spouse is concerned, as they can't see her until the 18. He also mentioned that [facility] had seen patient for a brief amount of time prior. They are opened to home health services if they can see her before her scheduled outpatient P.T. Barrier to selection of other outpatient P.T. is her insurance. Let patient know that this DC Loan Review Analyst can call [facility] and [facility] (as they are the only the only two agencies that serve [place]. Spoke to Rachel at [facility], she is willing to review and talk to her team, referral was sent. Also, left Marlee at [facility] a message to see if they can accept patient, and the soonest that they can see her. Referral was also sent to her. P: Patient does have discharge orders for today, for outpatient P.T, will await responses from both home health agencies before ordering, to see if they can accept her under her [place], and the soonest they can see her. Liliana Velazquez RN/Hall Supervisor Discharge Planning/Care Management Advanced directive, confirm from FAMILY Start: 06/09/22 11:44 Freq: Q24H Status: Active Protocol: Document 06/09/22 11:50 CLL (Rec: 06/09/22 12:00 CLL [id number]) Co-signed By Whitney Eason RN Advance Directive, confirm on record Time 12:00 Person contacted patient Copy received No CM Discharge Assessment Start: 06/10/22 09:09 Freq: Status: Active Protocol: Document 06/10/22 09:09 VM (Rec: 06/10/22 09:14 VM [id number]) Discharge Planning Assessment Assigned Manager Float Liliana Velazquez RN/Hall Supervisor Advance Directives? No Advance Directives on File No History Provided By Patient,Significant Other, Medical Record Prior Living Arrangements House Household Members significant other Type of transporation used prior to Relies on Others admit Willing to Return to Facility? No Independent with ADL's Yes Is patient alert and oriented? Yes Needs Assistance With Meal Prep,Home Chores / Shopping Caregiver for Another No Community Services used prior to Physical Therapy admission: Comment Patient had been working with [employer] recently DME Already Rented / Owned Wheelchair,FWW / Walker Patient/Family Preference OP PT Therapy Comment Patient set up with outpatient, but not until the . Barriers to Discharge No Discharge Plan Home with Home Health Transportation Arrangement Significant other Saqib Saleh will provide transportation upon D/C Referrals Initiated Other Additional Comment Have calls out to [facility] to see if they can accept patient with her insurance, and if they can see her sooner than her scheduled outpatient appointment. SNF/HH Preference No preference, used [facility] before, which ever one can see her sooner. Whiteboard Updated in Patient Room with Yes name and ext. # of Manager Float Review Status In Process Next Review Type Continued Stay Review Pre-Anesthesia Assessment Start: 06/03/22 12:48 Freq: Status: Complete Protocol: Document 06/03/22 12:48 CAB (Rec: 06/03/22 13:54 CAB [id number]) Pre-Anesthesia Assessment Preferred Name Arnol Patient Information Reviewed Via Phone Assessment Assessment Completed With Patient Diagnostic Results BMP/CMP,CBC,EKG Comment Labs/EKG @ 05/27/22 Primary Care Provider Lala Partida Seen Specialist in Last 12 Months Yes Specialist Seen Orthopedist,Retail Wireless Sales Consultant, Other Comment RA, Infectious Disease @ [facility], Infect disease recs scanned Primary Language Cook Islander Preferred Language Cook Islander Dialysis Social Worker Required No Height 5 ft 6 in Weight 150 lb Body Mass Index (BMI) 24.2 Hearing Ability Normal Visual Assist Glasses Dentition Type Full- Upper & Lower Barriers to Learning None Hx Anesthesia Reactions No Hx Family Anesthesia Reaction No Hx Malignant Hyperthermia No Hx Blood Transfusions No Hx Blood Transfusion Reaction No Anesthesia Review Requested No Milk Receiver No alcohol intake current alcohol intake frequency 0-2 drinks per day Smoking Status Current every day smoker Tobacco type cigarettes Smoking cigarettes per day 2 Substance Use Type does not use Pain Present Pain Reported Musculoskeletal Symptoms Abnormal Gait,Difficulty Walking,Joint Pain History of Falling (Recent or History of Yes ) Patient is completely paralyzed or No completely immobile Prosthesis or Orthotic Device Wheelchair Mental Status Oriented to own ability Is patient on oxygen? No Does patient have [place]OWLEY/SOB No Hx Sleep Apnea No CPAP/BIPAP use not prescribed Currently Taking a Beta Estefania Yes: Metoprolol Can You Climb a Flight of Stairs Without Yes: In a wheelchair, has not SOB attempted recently Hx Chest Pain No Hx SOB No Hx Syncope or Dizziness No Anti-Coagulant Therapy No Has a [employer] Bi Consultant No Cardiac Testing No Hx Pacemaker/ICD No Pacemaker Rep Required? No Cardiac Clearance Received Not Applicable Diet Type At Home Regular Dysphagia No Gastrointestinal Symptoms None Chronic UTI No Urinary Catheter Present No Hx Urinary Self Catheterization No Diabetes No HgbA1C 5.6 Date 05/27/22 Patient No Lactating No Hx Drug Resistant Organism Yes: MRSA, MSSA Presence of External or Internal Medical Yes: L foot pins and screws Devices Received a COVID vaccine? Yes Received all doses? No Marital Status Lives With significant other Current Living Arrangements House Number of Floors (Floors) One Floor Support System Significant Other Does the Patient Have Assistance After Yes Surgery Patient Discharge Plan Description Return Home Comment Pt advised overnight length of stay per surgeon Feels Safe in Current Environment Yes Been Physically Hurt or Threatened By a No Person in Current Environment Do you have thoughts of harming yourself None or others? Are you currently considering suicide? No Do you have a plan to hurt yourself or No Plan others? Do You Have Any Spiritual Beliefs That No May Affect Your HC Choices? Do You Have Any Cultural Practices That No May Affect Your HC Choices? Comment [place] Who Can We Speak to About Patient's Care Family, friends Identifying Code for Release of Patient Declines to issue Information Health Care Proxy/Next of Kin Saqib Saleh (S.O.) Health Care Proxy Emergency Contact Name Saqib Saleh Emergency Contact Advance Directives? No Advance Directives on File No Power of Crew Attendant No PAC Instructions Do not shave/clip surgical site,Durable medical equipment ,Medications to take/avoid, Nasal antibiotic,No ETOH/ petroleum product on skin DOS, NPO,Pre-surgical wash,Sensory aids,Sturdy shoes/comfortable clothes,Do not bring valuables and remove jewelry
[2022-06-10] MEDS: AMOXICILLIN/CLAV 875/125 MG 1 TAB PO (11:53)
--- NOTE | 2022-06-10 12:59 | PC.NURSE ---
Day shift: Paperwork signed and all questions answered. Pt's Spouse in room for teachings. MD scripts sent electronic to Pt's pharmacy. Left unit via WC at approx 1300. Taken by PCT Drea. AMADOU CDI and green light flashes. HELADIO wrap intact. Pain well controlled per APR. VS remain WNL. No nausea also. Pt has all personal belongings.
== END 2022-06-10 13:08 | disposition home or self-care (01) | DRG 326 ==
LOC: OR 06:35 → AC 08:55
PROVIDERS: Admitting Provider Orthopaedic Surgery; PCP Nurse Practitioner; Referring Provider Orthopaedic Surgery; Visit Provider Orthopaedic Surgery
PROC: 0SRD0JZ Replacement of Left Knee Joint with Synthetic Substitute, Open Approach (ICD-10-PCS; CPT 27447; principal; 2022-06-09 07:45)
DX: M06.9 Rheumatoid arthritis, unspecified (principal); M17.32 Unilateral post-traumatic osteoarthritis, left knee; M06.862 Other specified rheumatoid arthritis, left knee; F41.9 Anxiety disorder, unspecified; E78.5 Hyperlipidemia, unspecified; I10 Essential (primary) hypertension; D64.9 Anemia, unspecified; J44.9 Chronic obstructive pulmonary disease, unspecified; F17.200 Nicotine dependence, unspecified, uncomplicated; Z20.822 Contact with and (suspected) exposure to COVID-19
CPT/HCPCS: 27447; 36415; 73560; 85014; 85018; 87070; 87075; 87176; 87205; 87635; 87801; 97116; 97162; 97530; C1776; C9803; G0378; C9290; J0171; J0690; J1100; J1885; J2405; J2704; J3010; J7613

== ENCOUNTER → 2023-08-14 08:39 | Outpatient (CLI) | payer MEDICAID, SELFPAY ==
[2022-02-11 08:25] VITALS: PULSE 98; O2SAT 97
[2022-02-11 08:37] VITALS: RESP 14
[2022-02-11 10:04] VITALS: RESP 14
[2022-06-09 11:37] VITALS: BMI 24.2
--- NOTE | 2023-08-14 08:42 | EKG_ITS ---
[address] [address] [place] [address] Test Date: 2023-08-14 Pat Name: Sendy Hollins Department: [facility] Room: Gender: Female Apartment Maintenance: MARGARITA : 1960 Requested By: Order Number: [id number] Reading MD: Evans Stark Measurements Intervals [place] Rate: 63 P: 16 [place]: 192 QRS: 2 QRSD: 84 T: 56 QT: 416 QTc: 425 Interpretive Statements Normal sinus rhythm Cannot rule out Inferior infarct , age undetermined Electronically Signed On 08-17-2023 9:00:24 PDT by Evans Stark
[2023-08-14 09:31] LABS: Add Manual Diff / Slide Review NO; Basophils Absolute Auto 100 /uL (0-100); Basophils Percent Auto 0.4 % (0-2); Eosinophils Absolute Auto 300 /uL (0-450); Hematocrit 39.4 % (36-46); Hemoglobin 12.9 g/dL (12.0-16.0); Lymphocytes Absolute Auto 1500 /uL (1100-4500); Lymphocytes Percent Auto 11.8 % (25-40); Mean Corpuscular HGB Conc 32.6 % (30-36); Mean Corpuscular Hemoglobin 28.7 PG (26-34); Mean Corpuscular Volume 87.9 fL (80-100); Monocytes Absolute Auto 1100 /uL (0-900); Monocytes Percent Auto 8.3 % (3-14); Neutrophils Absolute Auto 9900 /uL (1500-7000); Neutrophils Percent Auto 77.5 % (50-75); Platelet Count 266 X10^3/uL (150-400); Red Blood Cell Count 4.49 X10^6/uL (4.0-5.2); Red Cell Distribution Width 14.2 % (11.6-14.8); White Blood Cell Count 12.8 X10^3/uL (4.5-11.0)
[2023-08-14 09:41] LABS: INR 0.9 (0.9-1.3); Prothrombin Time 10.2 SECONDS (9.4-12.5)
[2023-08-14 09:45] LABS: Alanine Aminotransferase 20 IU/L (<35); Albumin 3.9 g/dL (3.5-5.0); Albumin Globulin Ratio 1.3 (1.0-2.8); Alkaline Phosphatase 122 U/L (38-126); Aspartate Aminotransferase 24 IU/L (14-36); Bilirubin Total 0.4 mg/dL (0.2-1.3); Blood Urea Nitrogen 24 mg/dL (7-17); Carbon Dioxide 32 mmol/L (22-32); Chloride 104 mmol/L (98-107); Cholesterol 179 mg/dL (140-199); Estimated Glomerular Filt Rate 48 mL/min (>60); Glucose 118 mg/dL (80-110); HDL Cholesterol 49 mg/dL (40-60); HEMOLYSIS < 15 (0-50); LDL Cholesterol Calculated 75 mg/dL (<100); Sodium 139 mmol/L (137-145); Total Protein 6.9 g/dL (6.3-8.2); Triglycerides 277 mg/dL (35-150)
[2023-08-14 10:02] LABS: Free T3, Triiodothyronine Free 3.58 pg/mL (2.77-5.27); Free T4, Direct Thyroxine 1.34 ng/dL (0.78-2.19)
[2023-08-14 10:16] LABS: Thyroid Stimulating Hormone 0.849 uIU/mL (0.47-4.68)
[2023-08-16 16:23] LABS: HIV 1 & 2 Ab/Ag 4th Gen Combo NEGATIVE (NEGATIVE)
== END ==
PROVIDERS: PCP Nurse Practitioner; Referring Provider Nurse Practitioner; Visit Provider Nurse Practitioner
DX: Z01.818 Encounter for other preprocedural examination (principal); Z00.00 Encounter for general adult medical examination without abnormal findings; Z11.4 Encounter for screening for human immunodeficiency virus [HIV]
CPT/HCPCS: 36415; 80053; 80061; 84439; 84443; 84481; 85025; 85610; 87389; 93005

== ENCOUNTER → 2024-04-18 07:42 | Outpatient (CLI) | payer MEDICAID, SELFPAY ==
[2022-02-11 08:25] VITALS: PULSE 98; O2SAT 97
[2022-02-11 08:37] VITALS: RESP 14
[2022-02-11 10:04] VITALS: RESP 14
[2022-06-09 11:37] VITALS: BMI 24.2
[2024-04-17 12:15] VITALS: PULSE 98; RESP 14; O2SAT 97; BMI 24.2
--- NOTE | 2024-04-18 07:49 | DI.CT.S_ITS ---
PROCEDURE: CT LE RT WO CON INDICATIONS: closed fracture of right ankle TECHNIQUE: Noncontrast 1-1.5 mm axial sections acquired from above the tibiotalar joint to the bottom of the calcaneus, with coronal and sagittal reformats. For radiation dose reduction, the following was used: automated exposure control, adjustment of mA and/or kV according to patient size. COMPARISON: [facility], CT, CT ANKLE RIGHT WITHOUT CONTRAST, 06/11/2023, 7:18. [facility], CR, XR ANKLE 3 VIEWS WEIGHT BEARING RIGHT, 04/13/2024, 8:36. FINDINGS: Image quality: Excellent. Bones: Chronic fracture deformity of the distal tibia and fibula. Comminuted displaced posterior malleolar and medial malleolar fragments are seen posterior and medial to the ankle respectively. Displacement has significantly increased when compared to the CT from 06/11/2023. No osseous bridging is seen in these locations. There is posterior and mild medial subluxation of the talus relative to the distal tibia with remodeling of the articular surfaces. The degree of posterior displacement and back cummings does not appear significantly changed. Previously seen distal fibular shaft fracture appears to demonstrate partial bony bridging with residual fracture deformity including posterior and medial angulation. Additional anemia a transverse fracture of the distal fibular shaft is seen with surrounding periosteal new bone formation. Generalized osteopenia. Chronic remodeling of the superior talus. Mild degenerative changes at the talonavicular joint. Moderate degenerative changes of the 1st metatarsophalangeal joint. Mild dorsal subluxation of the 2nd metatarsophalangeal joint. Degenerative changes are seen throughout the interphalangeal joints of the toes. Possible hammertoe deformities. Small ossification lateral to the calcaneocuboid articulation may be the sequela of prior trauma or degeneration. Soft tissues: Focus of soft tissue gas and surrounding edema are seen adjacent to the distal fibular shaft fracture. Subcutaneous edema is seen overlying the medial and lateral malleoli. Moderate tibiotalar effusion with intra-articular calcific debris. The articular cartilages, ligaments, tendons are not well evaluated with CT. Diffuse fatty infiltration of the foot musculature compatible with chronic denervation changes. IMPRESSION: 1. Chronic fractures of the distal tibia as described in the body report. Displaced ununited medial malleolar and posterior malleolar fracture fragments. Similar posterior talar subluxation and impaction. Moderate tibiotalar effusion. 2. Comminuted fracture of the distal fibula with partial bony bridging and more superior ununited component with surrounding periosteal new bone formation. Collection of fluid and gas is seen lateral to the fracture at the distal fibular shaft , and infection is not excluded. 3. Dorsal subluxation of the 2nd metatarsophalangeal joint with associated osteoarthrosis. 4. Fatty infiltration of the foot musculature compatible with chronic denervation changes. Approved by: Wilfrido Cisse M.D. on 04/18/2024 at 15:17
[2024-04-18 08:44] LABS: Add Manual Diff / Slide Review NO; Basophils Absolute Auto 100 /uL (0-100); Basophils Percent Auto 0.5 % (0-2); Eosinophils Absolute Auto 200 /uL (0-450); Hematocrit 42.5 % (36-46); Hemoglobin 13.8 g/dL (12.0-16.0); Lymphocytes Absolute Auto 2200 /uL (1100-4500); Lymphocytes Percent Auto 18.9 % (25-40); Mean Corpuscular HGB Conc 32.5 % (30-36); Mean Corpuscular Hemoglobin 27.5 PG (26-34); Mean Corpuscular Volume 84.8 fL (80-100); Monocytes Absolute Auto 800 /uL (0-900); Neutrophils Absolute Auto 8200 /uL (1500-7000); Neutrophils Percent Auto 71.6 % (50-75); Platelet Count 285 X10^3/uL (150-400); Red Blood Cell Count 5.02 X10^6/uL (4.0-5.2); Red Cell Distribution Width 15.5 % (11.6-14.8); White Blood Cell Count 11.5 X10^3/uL (4.5-11.0)
--- NOTE | 2024-04-18 08:53 | EKG_ITS ---
[address] [address] Test Date: 2024-04-18 Pat Name: Sendy Hollins Department: DEFAULT Room: Gender: Female Network Operations Center Technician: ABDIRAHMAN : 1960 Requested By: Order Number: [id number] Reading MD: Anjum Graham Measurements Intervals [place] Rate: 66 P: 61 [place]: 226 QRS: -20 QRSD: 86 T: 67 QT: 406 QTc: 425 Interpretive Statements Sinus rhythm with 1st degree AV block Possible Inferior infarct , age undetermined Electronically Signed On 04-18-2024 14:38:12 PDT by Anjum Graham
[2024-04-18 09:20] LABS: Alanine Aminotransferase 16 IU/L (<35); Albumin Globulin Ratio 1.4 (1.0-2.8); Alkaline Phosphatase 122 U/L (38-126); Aspartate Aminotransferase 22 IU/L (14-36); BUN Creatinine Ratio 27.8 (6-22); Bilirubin Total 0.5 mg/dL (0.2-1.3); Blood Urea Nitrogen 25 mg/dL (7-17); Calcium 9.7 mg/dL (8.4-10.2); Carbon Dioxide 30 mmol/L (22-32); Chloride 99 mmol/L (98-107); Cholesterol 191 mg/dL (140-199); Estimated Glomerular Filt Rate > 60 mL/min (>60); Globulin 2.9 g/dL (1.7-4.1); Glucose 82 mg/dL (80-110); HDL Cholesterol 55 mg/dL (40-60); HEMOLYSIS 18 (0-50); LDL Cholesterol Calculated 77 mg/dL (<100); Potassium 3.7 mmol/L (3.4-5.1); Sodium 137 mmol/L (137-145); Total Protein 6.9 g/dL (6.3-8.2); Triglycerides 294 mg/dL (35-150)
[2024-04-18 09:50] LABS: TSH w/ Reflex to FT4 0.68 uIU/mL (0.47-4.68)
[2024-04-18 10:30] LABS: Vitamin D 25 Hydroxy (D3) 38.6 ng/mL (30.0-100.0)
[2024-04-18 10:46] LABS: Appearance Urine UA CLEAR; Bilirubin Urine UA NEGATIVE (NEGATIVE); Color Urine UA YELLOW; Glucose Urine UA NEGATIVE (Negative); Ketones Urine UA NEGATIVE (NEGATIVE); Leukocyte Esterase Urine UA 1+ (NEGATIVE); Nitrite Urine UA POSITIVE (Negative); Occult Blood Urine UA NEGATIVE (Negative); Protein Urine UA NEGATIVE (Negative); Specific Gravity Urine UA 1.025 (1.000-1.035); Urobilinogen Urine UA 0.2 E.U./dL (0.2)
[2024-04-18 11:00] LABS: Bacteria Urine Many (>30); RBC Urine 0-1/HPF (0-5/HPF); Squamous Epithelial Cell Urine 0-1 /HPF (0-5/HPF); Urine Volume 10mL (spun); WBC Urine 5-10/HPF (0-5/HPF)
[2024-04-18 11:01] LABS: Culture Indicated Urine Specimen Cultured
== END ==
LOC: CT 07:44
PROVIDERS: PCP Registered Nurse Diabetes Educator; Referring Provider Orthopaedic Surgery Foot and Ankle Surgery; Visit Provider Orthopaedic Surgery Foot and Ankle Surgery
DX: Z01.818 Encounter for other preprocedural examination (principal); Z01.812 Encounter for preprocedural laboratory examination; S82.891P Other fracture of right lower leg, subsequent encounter for closed fracture with malunion; S82.891K Other fracture of right lower leg, subsequent encounter for closed fracture with nonunion; S93.144A Subluxation of metatarsophalangeal joint of right lesser toe(s), initial encounter; E55.9 Vitamin D deficiency, unspecified; E78.5 Hyperlipidemia, unspecified; I10 Essential (primary) hypertension; Z13.9 Encounter for screening, unspecified
CPT/HCPCS: 36415; 73700; 80053; 80061; 81001; 82306; 84443; 85025; 87077; 87086; 87186; 93005

== ENCOUNTER → 2024-04-26 10:37 | Outpatient (CLI) | payer MEDICAID, SELFPAY ==
[2024-04-17 12:15] VITALS: PULSE 98; RESP 14; O2SAT 97; BMI 24.2
[2024-04-26 11:46] LABS: Appearance Urine UA CLEAR; Bilirubin Urine UA NEGATIVE (NEGATIVE); Color Urine UA YELLOW; Glucose Urine UA NEGATIVE (Negative); Ketones Urine UA NEGATIVE (NEGATIVE); Leukocyte Esterase Urine UA 2+ (NEGATIVE); Nitrite Urine UA POSITIVE (Negative); Occult Blood Urine UA NEGATIVE (Negative); Protein Urine UA NEGATIVE (Negative); Urobilinogen Urine UA 0.2 E.U./dL (0.2)
[2024-04-26 11:50] LABS: Urine Volume 10mL (spun)
[2024-04-26 11:52] LABS: Bacteria Urine Moderate (10-30); Culture Indicated Urine Specimen Cultured; RBC Urine None Seen (0-5/HPF); Squamous Epithelial Cell Urine 1-5 /HPF (0-5/HPF); WBC Urine 5-10/HPF (0-5/HPF)
== END ==
PROVIDERS: PCP Registered Nurse Diabetes Educator; Referring Provider Registered Nurse Diabetes Educator; Visit Provider Registered Nurse Diabetes Educator
DX: N39.0 Urinary tract infection, site not specified (principal)
CPT/HCPCS: 81001; 87077; 87086; 87186

== ENCOUNTER → 2024-05-10 14:04 | Outpatient (CLI) | payer MEDICAID, SELFPAY ==
[2024-04-17 12:15] VITALS: PULSE 98; RESP 14; O2SAT 97; BMI 24.2
[2024-05-10 14:31] LABS: Add Manual Diff / Slide Review NO; Basophils Absolute Auto 100 /uL (0-100); Basophils Percent Auto 0.6 % (0-2); Eosinophils Absolute Auto 400 /uL (0-450); Eosinophils Percent Auto 3.7 % (2-4); Hematocrit 39.5 % (36-46); Hemoglobin 13.2 g/dL (12.0-16.0); Lymphocytes Absolute Auto 2600 /uL (1100-4500); Lymphocytes Percent Auto 23.9 % (25-40); Mean Corpuscular HGB Conc 33.4 % (30-36); Mean Corpuscular Hemoglobin 28.3 PG (26-34); Mean Corpuscular Volume 84.7 fL (80-100); Monocytes Absolute Auto 900 /uL (0-900); Monocytes Percent Auto 8.5 % (3-14); Neutrophils Absolute Auto 6800 /uL (1500-7000); Neutrophils Percent Auto 63.3 % (50-75); Platelet Count 269 X10^3/uL (150-400); Red Blood Cell Count 4.67 X10^6/uL (4.0-5.2); Red Cell Distribution Width 15.8 % (11.6-14.8); White Blood Cell Count 10.8 X10^3/uL (4.5-11.0)
== END ==
PROVIDERS: PCP Registered Nurse Diabetes Educator; Referring Provider Physician Assistant; Visit Provider Physician Assistant
DX: S82.891A Other fracture of right lower leg, initial encounter for closed fracture (principal)
CPT/HCPCS: 36415; 85025

== ENCOUNTER → 2024-05-12 07:04 | Outpatient (CLI) | payer MEDICAID, SELFPAY ==
[2024-04-17 12:15] VITALS: PULSE 98; RESP 14; O2SAT 97; BMI 24.2
[2024-05-12 07:41] LABS: Appearance Urine UA CLEAR; Bilirubin Urine UA NEGATIVE (NEGATIVE); Color Urine UA YELLOW; Glucose Urine UA NEGATIVE (Negative); Ketones Urine UA NEGATIVE (NEGATIVE); Leukocyte Esterase Urine UA 1+ (NEGATIVE); Nitrite Urine UA POSITIVE (Negative); Occult Blood Urine UA NEGATIVE (Negative); Protein Urine UA NEGATIVE (Negative); Specific Gravity Urine UA >=1.030 (1.000-1.035); Urobilinogen Urine UA 0.2 E.U./dL (0.2)
[2024-05-12 07:45] LABS: Urine Volume 10mL (spun)
[2024-05-12 07:46] LABS: Bacteria Urine Moderate (10-30); Culture Indicated Urine Specimen Cultured; RBC Urine None Seen (0-5/HPF); Squamous Epithelial Cell Urine 5-10 /HPF (0-5/HPF); WBC Urine 5-10/HPF (0-5/HPF)
== END ==
PROVIDERS: PCP Registered Nurse Diabetes Educator; Referring Provider Orthopaedic Surgery Foot and Ankle Surgery; Visit Provider Orthopaedic Surgery Foot and Ankle Surgery
DX: R39.0 Extravasation of urine (principal)
CPT/HCPCS: 81001; 87077; 87086; 87186

== ENCOUNTER → 2024-05-22 07:03 | Outpatient (CLI) | payer MEDICAID, SELFPAY ==
[2024-04-17 12:15] VITALS: PULSE 98; RESP 14; O2SAT 97; BMI 24.2
--- NOTE | 2024-05-25 16:28 | DI.NM.S_ITS ---
DATE OF SERVICE: 05/25/2024 PROCEDURE: Pharmacological perfusion study. INDICATIONS: Preop with underlying hypertension, hyperlipidemia, chest pain. RADIOPHARMACEUTICAL: 25.4 millicurie technetium-99m Myoview IV was injected at stress and 26.6 millicurie technetium-99m Myoview IV was injected at rest. CARDIAC STRESS: The patient underwent IV Lexiscan perfusion study under the supervision of an attending staff using standard intravenous Lexiscan as per protocol. She remained hemodynamically stable. Resting blood pressure 110/58. Baseline rhythm sinus. During stress, no convincing ischemic changes seen. No significant arrhythmias. No chest pain. RAW DATA: Breast shadow seen. GATED STUDY: Resting LV ejection fraction 93 and stress LV ejection fraction 95%. No significant wall motion abnormalities. Resting end- diastolic volume 58 mL. TID ratio 1.16, which is within normal limits. Lung/heart ratio 0.34, which is within normal limits. MYOCARDIAL PERFUSION SCAN: Stress supine and resting supine images revealed minimally decreased perfusion of distal anterior wall. No prone images. CONCLUSION: 1. No reversible ischemia. 2. Minimally decreased perfusion of distal anterior wall. However, no regional wall motion abnormalities. On raw data there is a breast shadow seen. Summed stress score and summed rest score zero with difference score zero. Hence, likely due to breast tissue attenuation artifact. I will call this study likely a normal myocardial perfusion study. Overall, low-risk myocardial perfusion scan. Sendy Hollins - NANCY/negin/OTIS doc#: [id number]/job#: [id number] dd: 05/25/2024 13:06:00 dt: 05/25/2024 16:13:00 DICTATING MD/COPIES TO: Bishop Carmichael MD COPIES MNE: NOLAN;
== END ==
LOC: NUCM 07:03
PROVIDERS: PCP Registered Nurse Diabetes Educator; Referring Provider Physician Assistant; Visit Provider Physician Assistant
DX: J96.10 Chronic respiratory failure, unspecified whether with hypoxia or hypercapnia (principal); E78.5 Hyperlipidemia, unspecified; I10 Essential (primary) hypertension; Z87.891 Personal history of nicotine dependence
CPT/HCPCS: 78452; 93017; A9502; J2785

== ENCOUNTER → 2024-06-07 07:47 | Day surgery (SDC) | payer MEDICAID, SELFPAY ==
[2024-04-17 12:15] VITALS: PULSE 98; RESP 14; O2SAT 97; BMI 24.2
[2024-05-16 09:51] VITALS: BMI 24.2
[2024-06-07] VITALS (8 sets, daily range): BP systolic 112–131; BP diastolic 59–74; PULSE 14–75; RESP 11–96; TEMP 36.2–36.6; O2SAT 2–97; BMI 24.2
--- NOTE | 2024-06-07 | DI.RAD.S_ITS ---
PROCEDURE: XR ANKLE RT MIN 3V INDICATIONS: RT ANKLE ORIF TECHNIQUE: Intraoperative views of the ankle were acquired. COMPARISON: [facility], CT, CT LE RT WO CON, 04/18/2024, 7:55. FINDINGS: Intraoperative images demonstrate triple joint arthrodesis with plate and screw fixation hardware. The total fluoroscopy time was 9 minutes 11 seconds. IMPRESSION: Intraoperative images of right ankle internal fixation. Please see the operative report for further details. Dictated by: Daryn Tinajero M.D. on 06/07/2024 at 14:55 Approved by: Daryn Tinajero M.D. on 06/07/2024 at 14:56
[2024-06-07] MEDS: LACTATED RINGERS 1,000 ML 42 ML IV ×2 (08:31→12:13)
--- NOTE | 2024-06-07 08:35 | PM.PREOP ---
Pre-operative Note Interval Note History & Physical reviewed/Exam performed by Physician: Yes Changes to H&P: No
--- NOTE | 2024-06-07 09:07 | SUR.PREOP ---
Pre-op order from DR Irving for Duoneb. verified verbal.
[2024-06-07] MEDS: ALBUTEROL/IPRATROPIUM 3 ML AMPUL INH (09:13)
--- NOTE | 2024-06-07 09:28 | PM.OP.1 ---
Operative Date/Time/Diagnoses Date of procedure: 06/07/24 Time of procedure: 10:00 Pre-op diagnosis: Right ankle fracture malunion, rheumatoid arthritis, right ankle deformity, equinus contracture Post-op diagnosis: same Procedure & Clinicians Procedure: Arthrodesis ankle, right CPT code 95409 Arthrodesis subtalar joint, right CPT code 72617 Correction of ankle fracture malunion, right Distal tibia and fibula osteotomies CPT code 31004 Tenotomy tendo-Achilles percutaneous with a general anesthetic CPT code 52969, right This procedure was performed with a modifier 22 for increased complexity, severe malunion deformity requiring osteotomies and extensive exposure to achieve reduction requiring proximally twice the normal time for an ankle arthrodesis. Same procedure as scheduled: Yes Indications: The patient is a 64-year-old female with rheumatoid arthritis that presented with a insufficiency fracture to her right ankle to an outside institution nearly 1 year ago she was treated apparently conservatively over many months and had increasing deformity and malunion and collapse of her ankle and presents with severe varus deformity complete tibiotalar subluxation and inability to ambulate on the right lower extremity. She has been indicated for hindfoot arthrodesis and realignment procedures to address her severe malunion. She has stopped smoking and she will be getting treatment for osteoporosis. She had vascular studies that did not require any intervention after an diagnostic angiogram and presents for surgical correction of her severe right ankle and hindfoot deformity. The risks and benefits of the procedure have been discussed with the patient and given the opportunity to ask questions. The risks of surgery include but are not limited to infection, malunion, nonunion, persistence of pain, damage to nerves and blood vessels, posttraumatic arthritis, DVT, PE, cardiopulmonary complications and . The patient expressed a thorough understanding of the risks and benefits of surgery and has elected to proceed. Consent was signed. Surgeon: Leticia Banda Click Yes if Unassisted: Yes Anesthesia Type: General, Peripheral nerve block and Local Operative Notes Findings: Severe varus malunion ankle fracture with shortening and chronic posterior dislocation of the tibiotalar joint, fixed deformity, right Closure Type: primary Specimen(s): none sent Prosthetic devices, grafts, tissues, transplants, or devices: Arthrex dual compression hindfoot nail 10.5 x 210 mm Interlocking 5.0 screws headless screws 65 and 55 and the calcaneus 3 headed screws in the talus and tibia Estimated Blood Loss (mL): 30 Blood products transfused: none Tourniquet time (min): 120 Procedure in detail: The patient was seen in the preoperative area the site of surgery was marked informed consent confirmed this was the right ankle. The patient was brought to the block room and received a block with the anesthesia team for postoperative pain control. The patient was then brought to the operating room by the anesthesia team and positioned in the supine position. An ipsilateral thigh bump was applied. A thigh tourniquet was applied. In the right lower extremity was prepped and draped in the standard sterile fashion a formal time-out procedure was performed confirming the patient's side and site of surgery administration of appropriate preoperative antibiotic. All were in agreement. Attention was turned to the right lower extremity the C-arm was brought in and bony prominences marked at the level of the talar dome and expected levels of the trans malleolar osteotomies as well as level for incision for subtalar joint preparation was also marked on the skin. Next the Esmarch was used for exsanguination the tourniquet raised on the thigh to 250 mmHg. A Achilles tenotomy was completed due to the severe shortening and varus deformity. The percutaneous Achilles tenotomy was performed with a midline incision through the Achilles tendon posteriorly and a ann marie section to the right and left for the same incision with a palpable and audible release demonstrated with dorsiflexion pressure. Once this was completed attention was turned to the ankle joint. Small stab incision was made at the level of the lateral malleolus old this at the level of the talar dome for the trans malleolar fibula osteotomy the Arthrex cutting bur was then applied after the skin incision and elevation. The dusty was taken in a standard fashion to make the osteotomy of the distal fibula with rotation anterior and posterior to complete the cut and this was performed under irrigation. Next the bur was advanced across the talar dome and this was monitored closely on intraoperative fluoroscopy as the foot and talus was completely dislocated posterior compared to the tibia and this malunion. Next the bur was removed and a separate small stab incision was made medially at the level of the medial malleolus for the tibia osteotomy portion of the trans malleolar osteotomy preparation. Again the elevator was used anteriorly and posteriorly to elevate the soft tissues off the bone and the cutting bur was then inserted and with anterior and posterior rotation the medial malleolus osteotomy was completed again at the level of the talar dome and then under lateral fluoroscopy the medial aspect of the lateral talar dome was also prepared using 1st the cutting bur and then this was exchanged for the larger joint preparation bur in order to denude the cartilage from the tibiotalar joint again 1st posteriorly along the talar dome from medial and lateral and then separate anterior lateral and anteromedial portals were made to both prepare and slightly shortened the distal tibia anteriorly to create space for the reduction maneuver. Additionally the joint preparation were was placed back into the fibular osteotomy site to create some additional bone loss to allow compression. Meticulous preparation was completed under multiplanar fluoroscopy until there was enough space created to allow a reduction from the varus to neutral alignment and then a reduction anterior posterior for alignment in the sagittal plane bringing the talus anterior under the tibia. Separate incision was made in the sinus tarsi and dissected down to bone and the subtalar joint and then again the joint prep bur was used to prepare the posterior facet of the subtalar joint under lateral fluoroscopic guidance denuding the cartilage and subchondral bone surfaces from medial to lateral. Care was taken to make sure all the bone slurry remained in place. Once this was completed in the ankle was reducible into neutral or slight valgus alignment which did take several attempts and repeat debridements with a bur in order to achieve enough correction this was then pinned in place and scrutinized under AP mortise and lateral and axial x-rays for subtalar and tibiotalar alignment. Tourniquet was released. This was pinned in place provisionally then the guide halima for the Arthrex dual compression hindfoot nail was placed down through the skin to the bone the calcaneus on the lateral view from the calcaneus through the talus in line with the lateral process and into the tibia. A incision was made over the wire and this was dissected down to bone and the guide cannula placed and then secured in place with a additional wires. The opening Reamer was then utilized followed insertion of the ball-tipped guidewire and then reaming by sequential reaming from 9 to 11.5 for a 10.5 nail. A length of 210 mm was selected. Next the halima was applied and any remaining K-wires removed. A mixture of 5 cc of Allo sync bone graft and platelet rich plasma was completed and injected into the fusion sites using a syringe. Once this was completed the manual compression of the heel was completed in the x-rays again scrutinized for nail positioning in the bone. This was then locked into place with the calcaneal screw and the tibial screw then the tensioning device was used creating the maximal compression once the device was deployed the final screws in the calcaneus talus and tibia were applied. Final fluoroscopic x-rays in the axial lateral mortise and AP planes were scrutinized and showed appropriate compression and hardware placement. The plantar incision was closed with 2-0 Vicryl and 3-0 nylon suture. The joint prep and screw incisions were closed with 3-0 nylon suture. 30 cc of 0.25% Marcaine with epinephrine were used for local anesthetic. The patient was then placed into a sterile dressing with Xeroform gauze Webril bulky Mcknight cotton and a splint in neutral position with a posterior and stirrup. The patient was awoken from anesthesia and taken to the recovery unit in good condition there were no immediate complications from this procedure. All counts were correct. Complications: none Post-operative Condition: stable Disposition: PACU Plan for aftercare: Nonweightbearing or touchdown for balance on the operative extremity. Ice and elevation. Aspirin for DVT prophylaxis x6 weeks. Follow up in Orthopedic Clinic as scheduled. We will stay in the Mcknight cotton splint until follow up then being transitioned to boot or cast.
[2024-06-07] MEDS: CEFAZOLIN 2 GM/100 ML PREMIX 100 ML IV (10:30)
--- NOTE | 2024-06-07 11:02 | SUR.OPER ---
Supine on padded OR bed, head on pillow, arms secured on padded arm boards at <90 degrees abduction, legs uncrossed. Bump to right hip. Right leg supported on stacked blankets, left leg covered and secured with tape.
[2024-06-07] MEDS: BUPIVACAINE 0.25% W/ EPI 30 ML VIAL INJ (11:12)
--- NOTE | 2024-06-07 11:12 | SUR.PREOP ---
Time out 0955. Block start time 1000. Monitoring initiated and maintained throughout procedure. Oxygen and medications given by anesthesiologist . Patient remained stable throughout procedure, no adverse reactions noted. Block end time 1011.
[2024-06-07] MEDS: OXYCODONE/ACETAMINOPHEN 5/325 TABLET 1 TAB PO (14:16)
[2024-06-07] MEDS: ONDANSETRON 4 MG/2 ML INJ IV (14:16)
[2024-06-07] MEDS: hydrOXYzine 50 MG/ML INJ 25 MG IM (14:16)
[2024-06-07] MEDS: HYDROMORPHONE 1 MG INJ IV ×2 (14:17→14:35)
== END | disposition home or self-care (01) ==
PROVIDERS: PCP Registered Nurse Diabetes Educator; Referring Provider Orthopaedic Surgery Foot and Ankle Surgery; Visit Provider Orthopaedic Surgery Foot and Ankle Surgery
PROC: (CPT 27870; principal; 2024-06-07 09:15)
PROC: (CPT 27685; 2024-06-07 09:15)
DX: S82.891K Other fracture of right lower leg, subsequent encounter for closed fracture with nonunion (principal); S82.891P Other fracture of right lower leg, subsequent encounter for closed fracture with malunion; M06.9 Rheumatoid arthritis, unspecified; G89.18 Other acute postprocedural pain; F17.210 Nicotine dependence, cigarettes, uncomplicated; M21.071 Valgus deformity, not elsewhere classified, right ankle
CPT/HCPCS: 27870; 28725; 27709; 27606; 64450; 73610; 76000; C1713; C1776; J0690; J1100; J1171; J2250; J2405; J2704; J2795; J3010; J3410

== ENCOUNTER → 2024-08-09 14:09 | Outpatient (CLI) | payer MEDICAID, SELFPAY ==
[2024-04-17 12:15] VITALS: PULSE 98; RESP 14; O2SAT 97; BMI 24.2
== END ==
PROVIDERS: PCP Registered Nurse Diabetes Educator; Referring Provider Orthopaedic Surgery Foot and Ankle Surgery; Visit Provider Surgery
DX: T81.31XA Disruption of external operation (surgical) wound, not elsewhere classified, initial encounter (principal); S91.001A Unspecified open wound, right ankle, initial encounter; S91.301A Unspecified open wound, right foot, initial encounter; I96 Gangrene, not elsewhere classified; R23.4 Changes in skin texture; L84 Corns and callosities; I73.9 Peripheral vascular disease, unspecified; M86.172 Other acute osteomyelitis, left ankle and foot; I10 Essential (primary) hypertension; M19.90 Unspecified osteoarthritis, unspecified site; M06.9 Rheumatoid arthritis, unspecified; F32.9 Major depressive disorder, single episode, unspecified
CPT/HCPCS: 11042; 87070; 87075; 87205; 99203; 99214

== ENCOUNTER → 2024-08-15 08:33 | Outpatient (CLI) | payer MEDICAID, SELFPAY ==
[2024-04-17 12:15] VITALS: PULSE 98; RESP 14; O2SAT 97; BMI 24.2
== END ==
PROVIDERS: PCP Registered Nurse Diabetes Educator; Referring Provider Registered Nurse Diabetes Educator; Visit Provider Surgery
DX: T81.31XA Disruption of external operation (surgical) wound, not elsewhere classified, initial encounter (principal); S91.001A Unspecified open wound, right ankle, initial encounter; S91.301A Unspecified open wound, right foot, initial encounter; I73.9 Peripheral vascular disease, unspecified; Z89.422 Acquired absence of other left toe(s); Z79.01 Long term (current) use of anticoagulants
CPT/HCPCS: 11042

== ENCOUNTER → 2024-08-22 08:15 | Outpatient (CLI) | payer MEDICAID, SELFPAY ==
[2024-04-17 12:15] VITALS: PULSE 98; RESP 14; O2SAT 97; BMI 24.2
== END ==
LOC: WC 08:18
PROVIDERS: PCP Registered Nurse Diabetes Educator; Referring Provider Registered Nurse Diabetes Educator; Visit Provider Surgery
DX: T81.31XA Disruption of external operation (surgical) wound, not elsewhere classified, initial encounter (principal); S91.001A Unspecified open wound, right ankle, initial encounter; S91.301A Unspecified open wound, right foot, initial encounter; I73.9 Peripheral vascular disease, unspecified; Z79.01 Long term (current) use of anticoagulants; Z89.422 Acquired absence of other left toe(s); M86.172 Other acute osteomyelitis, left ankle and foot
CPT/HCPCS: 11042

== ENCOUNTER → 2024-09-05 10:13 | Outpatient (CLI) | payer MEDICAID, SELFPAY ==
[2024-04-17 12:15] VITALS: PULSE 98; RESP 14; O2SAT 97; BMI 24.2
== END ==
LOC: WC 10:35
PROVIDERS: PCP Registered Nurse Diabetes Educator; Referring Provider Registered Nurse Diabetes Educator; Visit Provider Surgery
DX: L97.412 Non-pressure chronic ulcer of right heel and midfoot with fat layer exposed (principal); L97.312 Non-pressure chronic ulcer of right ankle with fat layer exposed; I73.9 Peripheral vascular disease, unspecified; R60.0 Localized edema; I10 Essential (primary) hypertension; F17.210 Nicotine dependence, cigarettes, uncomplicated; Z79.01 Long term (current) use of anticoagulants; M06.00 Rheumatoid arthritis without rheumatoid factor, unspecified site
CPT/HCPCS: 11042; 99213

== ENCOUNTER → 2024-10-03 08:39 | Outpatient (CLI) | payer MEDICAID, SELFPAY ==
[2024-04-17 12:15] VITALS: PULSE 98; RESP 14; O2SAT 97; BMI 24.2
== END ==
LOC: WC 08:51
PROVIDERS: PCP Registered Nurse Diabetes Educator; Referring Provider Registered Nurse Diabetes Educator; Visit Provider Surgery
DX: I73.9 Peripheral vascular disease, unspecified (principal); L97.412 Non-pressure chronic ulcer of right heel and midfoot with fat layer exposed; L97.312 Non-pressure chronic ulcer of right ankle with fat layer exposed; R20.8 Other disturbances of skin sensation; M06.9 Rheumatoid arthritis, unspecified; I10 Essential (primary) hypertension; Z72.0 Tobacco use; Z79.01 Long term (current) use of anticoagulants
CPT/HCPCS: 11042

== ENCOUNTER → 2024-10-10 08:51 | Outpatient (CLI) | payer MEDICAID, SELFPAY ==
[2024-04-17 12:15] VITALS: PULSE 98; RESP 14; O2SAT 97; BMI 24.2
== END ==
PROVIDERS: PCP Registered Nurse Diabetes Educator; Referring Provider Registered Nurse Diabetes Educator; Visit Provider Surgery
DX: I73.9 Peripheral vascular disease, unspecified (principal); L97.412 Non-pressure chronic ulcer of right heel and midfoot with fat layer exposed; L97.312 Non-pressure chronic ulcer of right ankle with fat layer exposed; R60.0 Localized edema; R20.8 Other disturbances of skin sensation; I10 Essential (primary) hypertension; Z72.0 Tobacco use; Z79.01 Long term (current) use of anticoagulants; M06.9 Rheumatoid arthritis, unspecified
CPT/HCPCS: 11042; 99213

== ENCOUNTER 2024-10-18 09:08 | Day surgery (SDC) | payer MEDICAID, SELFPAY ==
[2024-04-17 12:15] VITALS: PULSE 98; RESP 14; O2SAT 97; BMI 24.2
[2024-10-12 12:37] VITALS: BMI 24.2
[2024-10-18] VITALS (11 sets, daily range): BP systolic 118–141; BP diastolic 62–77; PULSE 67–83; RESP 10–16; TEMP 36.5–36.7; O2SAT 93–98; BMI 24.0
[2024-10-18] MEDS: ACETAMINOPHEN 325 MG TABLET 650 MG PO (10:14)
[2024-10-18] MEDS: LACTATED RINGERS 1,000 ML 42 ML IV (10:15)
[2024-10-18] MEDS: ALBUTEROL/IPRATROPIUM 3 ML AMPUL INH (10:28)
--- NOTE | 2024-10-18 12:57 | PM.PREOP ---
Pre-operative Note Interval Note History & Physical reviewed/Exam performed by Physician: Yes Changes to H&P: No
--- NOTE | 2024-10-18 13:54 | SUR.OPER ---
Supine on padded OR bed, with flannel bump under right hip and leg, head on pillow, arms secured on padded arm boards at <90 degrees abduction, legs uncrossed, safety belt at abdomen, tape over blanket over lower legs and over flannel bump.
[2024-10-18] MEDS: BUPivacaine 0.25% W/ EPI (PF) 30 ML VIAL 60 ML INJ (14:04)
--- NOTE | 2024-10-18 14:13 | SUR.OPER ---
bacteria detection PCR ordered as well for lateral and medial bone
--- NOTE | 2024-10-18 15:10 | PM.OP.1 ---
Operative Date/Time/Diagnoses Date of procedure: 10/18/24 Time of procedure: 13:30 Pre-op diagnosis: Neuropathic ulcer right foot Rheumatoid arthritis Right ankle fracture and deformity. Surgical site infection Post-op diagnosis: same Procedure & Clinicians Procedure: Debridement skin subcutaneous tissue fascia and bone CPT code 27678 right x2 medial and lateral separate incision--modifier 59 for separate incisions Debridement skin subcutaneous tissue and fascia separate incision CPT code 97160 Deep bone biopsy right lateral ankle, separate deep bone biopsy right medial ankle CPT code 35679 Same procedure(s) as scheduled: Yes Indications: The patient is a 64-year-old female with rheumatoid arthritis that sustained a comminuted fragility type ankle/pilon fracture over a year ago Jacqui's treated nonoperatively by several outside multifocal button inspector over the course of the year presented to me with a severe varus neuropathic ankle fracture dislocation completely collapsed. She underwent a tibiotalar calcaneal hindfoot fusion on June 07, 2024 through a minimally invasive technique due to the severe deformity and concerns for the skin. Since that time she has had delayed wound healing round her minimally invasive bur portal sites. She has had no fevers or chills. She was seen in wound care the medial and plantar wounds had improved recently but as of to date the 2 portal sites of the lateral ankle show more erythema fibrinous tissue and malodor. She was indicated for irrigation debridement and deep biopsy. There was also been some concern of some further adjacent joint collapse and settling compared to intraop x-rays no gross hardware failure. The risks and benefits of the procedure have been discussed with the patient and given the opportunity to ask questions. The risks of surgery include but are not limited to infection, malunion, nonunion, persistence of pain, damage to nerves and blood vessels, posttraumatic arthritis, DVT, PE, coardiopulmonary complications and . The patient expressed a thorough understanding of the risks and benefits of surgery and has elected to proceed. Consent was signed. Surgeon: Leticia Banda Click Yes if Unassisted: No Anesthesia Type: General and Local Operative Notes Findings: Small portal incision sites open was fibrinous tissue malodor the lateral to portal sites especially more posterior 1 near the area of the fibular osteotomy. These were both excised together including skin subcutaneous tissue down to the level of bone. No deep purulence. Bone biopsy was taken. Medial portal incisions healing by secondary intention without erythema. These also ellipsed together and removed. Additional Charcot heterotopic ossification debulked medially and sent for culture. Plantar scar from halima insertion site partially healed with thickened scar excised skin subcutaneous tissue no purulence noted. This was debrided and closed. Closure Type: primary Specimen(s): other (Bone sent for culture and PCR separate sites from lateral ankle and medial ankle) Applied: none Estimated Blood Loss (mL): 5 Blood products transfused: none Tourniquet time (min): 14 Procedure in detail: The patient is seen in the preoperative area the site of surgery was marked informed consent confirmed this was the right ankle. The patient is brought back to the operating room by the anesthesia team positioned supine on operative table. General anesthetic was administered. The right lower extremity had a well-padded thigh tourniquet placed and then was draped in the standard sterile fashion. Formal time-out procedure was performed confirming the patient's side and site of surgery consent an antibiotic. All were in agreement. Attention turned to the right ankle. A oblique incision was marked out to encompass both lateral portals this was sized full-thickness sharply with a scalpel through the skin subcutaneous tissue down to the level of the bone and excised in total. This brought us down to the bone there was no deep sinus. The area was curetted and rongeured. Then a Jamshidi trocar was used to take deep bone biopsy from the underlying bone and this was sent for culture and PCR. Next separate incision medially was made the slight curved fashion to incorporate the 2 open portal sites medially again this was excised sharply with a scalpel down through the skin subcutaneous tissue down to the level of the bone. Once this was completed the wound edges were undermined with a scalpel to mobilize them. An osteotome was brought in and under intraoperative C-arm fluoroscopy the osteotome was used to remove some of the bulky heterotopic ossification within the soft tissues medially this was sent for culture and PCR. Once this was completed attention was turned to the plantar heel wound which was excised in elliptical fashion sharply with a scalpel down through the skin subcutaneous tissue. Once this was completed all wounds were curetted and then irrigated with 3 L of saline using cysto tubing. Drapes and gloves were changed. Next medial and lateral and plantar wounds were closed with 2-0 PDS 4-0 Monocryl and 3-0 nylon suture. 0.25% Marcaine with epinephrine was injected for local anesthetic. Incisions approximated well without tension. Dressings were placed with Xeroform gauze Webril and an Shola wraps followed by a posterior and U splint. The patient was awoken from anesthesia and taken to recovery unit in good condition there were no immediate complications from this procedure. Counts were correct Complications: none Post-operative Condition: stable Disposition: PACU Plan for aftercare: Partial weight-bearing in the splint. Follow up in Orthopedic Clinic in 2 weeks for wound inspection and suture removal. Empiric antibiotics pending cultures and PCR. Keep splint clean dry and intact.
[2024-10-18] MEDS: fentaNYL 100 MCG/2 ML INJ IV (15:26)
[2024-10-18 15:34] LABS: Add Manual Diff / Slide Review NO; Hematocrit 36.5 % (36-46); Hemoglobin 11.8 g/dL (12.0-16.0); Lymphocytes Absolute Auto 2100 /uL (1100-4500); Mean Corpuscular HGB Conc 32.4 % (30-36); Mean Corpuscular Hemoglobin 26.9 PG (26-34); Mean Corpuscular Volume 82.9 fL (80-100); Platelet Count 236 X10^3/uL (150-400)
[2024-10-18 15:50] LABS: Blood Urea Nitrogen 17 mg/dL (7-17); Calcium 9.1 mg/dL (8.4-10.2); Carbon Dioxide 29 mmol/L (22-32); Chloride 102 mmol/L (98-107); Estimated Glomerular Filt Rate > 60 mL/min (>60); Glucose 105 mg/dL (70-99); HEMOLYSIS < 15 (0-50); Potassium 3.6 mmol/L (3.4-5.1); Sodium 139 mmol/L (137-145)
== END 2024-10-18 16:49 | disposition home or self-care (01) ==
PROVIDERS: PCP Registered Nurse Diabetes Educator; Referring Provider Orthopaedic Surgery Foot and Ankle Surgery; Visit Provider Orthopaedic Surgery Foot and Ankle Surgery
PROC: (CPT 13132; principal; 2024-10-18 11:15)
DX: L97.319 Non-pressure chronic ulcer of right ankle with unspecified severity (principal); L97.519 Non-pressure chronic ulcer of other part of right foot with unspecified severity; M25.571 Pain in right ankle and joints of right foot; M06.9 Rheumatoid arthritis, unspecified; Z98.1 Arthrodesis status
CPT/HCPCS: 13132; 13133; 80048; 85025; 85651; 86140; 87070; 87075; 87205; 87801; J0690; J1171; J2250; J2704; J3010

== ENCOUNTER 2024-11-03 05:33 | Emergency (ER) | payer MEDICAID, SELFPAY ==
[2024-04-17 12:15] VITALS: PULSE 98; RESP 14; O2SAT 97; BMI 24.2
[2024-11-03 06:02] VITALS: BP 123/59; PULSE 75; RESP 16; TEMP 36.4; O2SAT 95; BMI 24.7
--- NOTE | 2024-11-03 06:16 | ED.WOUNDLAC ---
HPI - Wound/Laceration General Chief Complaint: Wound/Laceration Stated Complaint: Rt foot/heel surgery wound complications Time Seen by Provider: 11/03/24 05:38 Source: patient Mode of arrival: Wheelchair History of Present Illness HPI narrative: 64-year-old female history of rheumatoid arthritis status post complex hindfoot tibiotalar calcaneal fusion for severe right ankle varus fracture dislocation malunion nonunion date of surgery 06/07/2024. Patient had sutures removed on Wednesday and the noticed today after placing the butterfly on due to concerns for tissue being white and not pink and that the gap was opening up again and she may need surgery again. They did not contact office yet but rather came in here for further evaluation with hopes of being re-contacted. Other than what is stated 14 point review of system is negative. Related Data Home Medications ?Medication ?Instructions ?Recorded ?Confirmed hydroxychloroquine 200 mg tablet 400 mg PO DAILY 06/03/22 10/18/24 leflunomide 20 mg tablet 20 mg PO DAILY 03/22/24 10/18/24 Previous Rx's ?Medication ?Instructions ?Recorded colchicine 0.6 mg capsule See Rx Instructions .Route 12/31/20 .COMPLEX #180 caps atorvastatin 20 mg tablet 20 mg PO ONCE PM #90 tabs 03/22/24 metoprolol tartrate 50 mg tablet 50 mg PO BID for blood pressure 03/22/24 #90 tabs nortriptyline 50 mg capsule 50 mg PO QPM for pain #90 caps 03/22/24 venlafaxine 37.5 mg tablet See Rx Instructions .Route 03/22/24 .COMPLEX #180 caps ondansetron 4 mg disintegrating 4 mg PO Q8H PRN nausea and 06/07/24 tablet vomiting #7 tabs pregabalin 150 mg capsule 150 mg PO BID #180 caps 08/16/24 hydrochlorothiazide 25 mg tablet 25 mg PO QAM for blood pressure 09/25/24 #90 tabs cefadroxil 500 mg capsule 500 mg PO BID #20 caps 10/18/24 ciprofloxacin HCl 500 mg tablet 500 mg PO BID #20 tabs 10/18/24 (Cipro) ondansetron 4 mg disintegrating 4 mg PO Q6H PRN nausea and 10/18/24 tablet vomiting #5 tabs oxycodone 5 mg tablet 5 mg PO Q4H PRN pain #40 tabs 10/18/24 Allergies Allergy/AdvReac Type Severity Reaction Status Date / Time lisinopril Allergy Severe angioedema Verified 11/03/24 06:01 Iodinated Contrast Media Allergy Intermediate Hives Verified 11/03/24 06:01 Review of Systems Review of Systems ROS Unobtainable: All systems reviewed & are unremarkable except as noted in HPI and below Patient History Medical History (Updated 11/03/24 @ 06:48 by Mark Damian, DO) Renal insufficiency Empyema lung Chronic pericarditis Left humeral fracture Rib fractures History of vertebral compression fracture Osteoporosis with pathological fracture of multiple sites Closed right ankle fracture Class 1 obesity High risk of cardiac event Humerus head fracture Chronic respiratory failure Alcohol dependence COVID-19 virus infection (01/30/22) Pneumonia Tobacco dependence Osteoarthritis (~2013) Anxiety Scoliosis (~1975) Degenerative joint disease (DJD) of lumbar spine (~1975) Chronic back pain (~2013) Anemia Osteomyelitis (2020) Hyperlipidemia Hypertension Rheumatoid arthritis (~2009) Surgical History (Updated 10/12/24 @ 13:12 by Sheyla Partida RN) History of ankle surgery (05/2024) History of total left knee replacement (06/09/22) Status post left knee replacement Hx of chest tube placement (2021) Status post left foot surgery (08/23/20) Anesthesia History of incision and drainage (03/19/20) History of amputation of toe (~2018) Family History Father Cancer Hypertension Hyperlipidemia Mother Hypertension Brother Testicular cancer Hypertension Brother Diabetes mellitus Hypertension Hyperlipidemia Social History household members: significant other Smoking Status: Current every day smoker Tobacco: How many years used: 40 quit status: quit date established second hand exposure: No alcohol intake: current substance use type: does not use Smoking Status: Current every day smoker alcohol intake frequency: 0-2 drinks per day Exam Narrative Exam Narrative: GENERAL: [64] year old patient appears stated age. Well-developed patient, in mild distress. HEAD: Atraumatic. Normocephalic. EYES: Pupils equal round and reactive. Extraocular motions intact. No scleral icterus. No injection or drainage. EXTREMITIES: No edema or joint tenderness. BACK: Nontender without deformity or crepitance. No flank tenderness. NEURO: AOx3. SKIN: Vertical incision site clean, no redness, warmth, bleeding or discharge Initial Vital Signs Initial Vital Signs: Vital Signs Temperature 97.6 F 11/03/24 06:02 Pulse Rate 75 11/03/24 06:02 Respiratory Rate 16 11/03/24 06:02 Blood Pressure 123/59 L 11/03/24 06:02 Pulse Oximetry 95 11/03/24 06:02 Oxygen Delivery Method Room Air 11/03/24 06:02 Course Vital Signs Vital signs: Vital Signs - 8 hr 11/03/24 06:02 Temperature 97.6 F Pulse Rate 75 Respiratory Rate 16 Blood Pressure 123/59 L Pulse Oximetry 95 Oxygen Delivery Method Room Air MDM - Wound/Laceration MDM Narrative Medical decision making narrative: Vital signs, nurse triage note, medication list, previous ER visits all reviewed. Case discussed with Dr. Guadalupe who has seen and evaluated patient this past Wednesday. I texted her the pictures to see and she recommended to use butterflies and Steri-Strips and not to walk on it much and partial weight-bearing in her [place] boot with walker ok but if she can stay off it longer highly recommended by Ortho MD who has follow up appt in 2 weeks. Discharge Plan Departure Patient Disposition: Home Clinical Impression: Open wound Activity Restrictions/Additional Instructions: Return with new or worsening symptoms. Okay to use butterfly and Steri-Strips for wound care and to follow up with Dr. Banda in 2 weeks for appointment. Prescriptions: No Action colchicine 0.6 mg capsule See Rx Instructions .ROUTE .COMPLEX Qty: 180 0RF Dose Instruction: Take 1 capsule by mouth twice daily Rx Instructions: Take 1 capsule by mouth once daily pregabalin 150 mg capsule 150 mg PO BID Qty: 180 0RF hydrochlorothiazide 25 mg tablet 25 mg PO QAM Qty: 90 0RF leflunomide 20 mg tablet 20 mg PO DAILY venlafaxine 37.5 mg tablet See Rx Instructions .ROUTE .COMPLEX Qty: 180 3RF Dose Instruction: Take 1 tablet by mouth twice daily Rx Instructions: Take 1 tablet by mouth twice daily atorvastatin 20 mg tablet 20 mg PO ONCE PM Qty: 90 1RF metoprolol tartrate 50 mg tablet 50 mg PO BID Qty: 90 1RF nortriptyline 50 mg capsule 50 mg PO QPM Qty: 90 3RF hydroxychloroquine 200 mg Tablet 400 mg PO DAILY oxycodone 5 mg tablet 5 mg PO Q4H PRN (Reason: pain) Qty: 40 0RF Rx Instructions: Postop exempt ondansetron 4 mg tablet,disintegrating 4 mg PO Q6H PRN (Reason: nausea and vomiting) Qty: 5 1RF ciprofloxacin HCl [Cipro] 500 mg tablet 500 mg PO BID Qty: 20 0RF cefadroxil 500 mg capsule 500 mg PO BID Qty: 20 0RF ondansetron 4 mg tablet,disintegrating 4 mg PO Q8H PRN (Reason: nausea and vomiting) Qty: 7 1RF Referrals: Gelacio Adam ARNP [Primary Care Provider, Medical] Stand Alone Forms: Patient Portal/API
[2024-11-03 06:54] VITALS: BP 126/61; PULSE 72; RESP 16; O2SAT 98
--- NOTE | 2024-11-03 07:02 | PC.NURSE ---
Placed steri strips on laceration to heel, covered with an alevyn dressing, placed nonstick dressing over incisions to ankle. wrapped in gauze
== END 2024-11-03 07:07 | disposition home or self-care (01) ==
PROVIDERS: Emergency Provider Family Medicine; PCP Registered Nurse Diabetes Educator
DX: S91.301A Unspecified open wound, right foot, initial encounter (principal)
CPT/HCPCS: 99283

== ENCOUNTER → 2024-11-29 16:18 | Outpatient (CLI) | payer MEDICAID, SELFPAY ==
[2024-04-17 12:15] VITALS: PULSE 98; RESP 14; O2SAT 97; BMI 24.2
== END ==
LOC: WC 16:18
PROVIDERS: PCP Registered Nurse Diabetes Educator; Referring Provider Registered Nurse Diabetes Educator; Visit Provider Surgery
DX: I70.233 Atherosclerosis of native arteries of right leg with ulceration of ankle (principal); I70.234 Atherosclerosis of native arteries of right leg with ulceration of heel and midfoot; L97.312 Non-pressure chronic ulcer of right ankle with fat layer exposed; L97.412 Non-pressure chronic ulcer of right heel and midfoot with fat layer exposed; R60.0 Localized edema; F17.200 Nicotine dependence, unspecified, uncomplicated; Z79.01 Long term (current) use of anticoagulants
CPT/HCPCS: 11042; 99213

== ENCOUNTER → 2024-12-06 08:42 | Outpatient (CLI) | payer SELFPAY ==
[2024-04-17 12:15] VITALS: PULSE 98; RESP 14; O2SAT 97; BMI 24.2
== END ==
PROVIDERS: PCP Registered Nurse Diabetes Educator; Referring Provider Registered Nurse Diabetes Educator; Visit Provider Surgery
DX: I70.234 Atherosclerosis of native arteries of right leg with ulceration of heel and midfoot (principal); L97.412 Non-pressure chronic ulcer of right heel and midfoot with fat layer exposed; I70.233 Atherosclerosis of native arteries of right leg with ulceration of ankle; L97.312 Non-pressure chronic ulcer of right ankle with fat layer exposed; R20.8 Other disturbances of skin sensation; I73.9 Peripheral vascular disease, unspecified; I10 Essential (primary) hypertension; M06.9 Rheumatoid arthritis, unspecified; Z72.0 Tobacco use; Z79.01 Long term (current) use of anticoagulants
CPT/HCPCS: 11042

== ENCOUNTER → 2024-12-13 11:32 | Outpatient (CLI) | payer SELFPAY ==
[2024-04-17 12:15] VITALS: PULSE 98; RESP 14; O2SAT 97; BMI 24.2
== END ==
LOC: WC 11:44
PROVIDERS: PCP Registered Nurse Diabetes Educator; Referring Provider Registered Nurse Diabetes Educator; Visit Provider Surgery
DX: I70.233 Atherosclerosis of native arteries of right leg with ulceration of ankle (principal); I70.235 Atherosclerosis of native arteries of right leg with ulceration of other part of foot; L97.312 Non-pressure chronic ulcer of right ankle with fat layer exposed; L97.512 Non-pressure chronic ulcer of other part of right foot with fat layer exposed; I73.9 Peripheral vascular disease, unspecified; L53.8 Other specified erythematous conditions; R60.0 Localized edema; Z79.01 Long term (current) use of anticoagulants; F17.200 Nicotine dependence, unspecified, uncomplicated
CPT/HCPCS: 11042; 99213

== ENCOUNTER → 2024-12-26 14:33 | Outpatient (CLI) | payer SELFPAY ==
[2024-04-17 12:15] VITALS: PULSE 98; RESP 14; O2SAT 97; BMI 24.2
== END ==
LOC: WC 14:34
PROVIDERS: PCP Registered Nurse Diabetes Educator; Referring Provider Registered Nurse Diabetes Educator; Visit Provider Surgery
DX: I70.233 Atherosclerosis of native arteries of right leg with ulceration of ankle (principal); I70.235 Atherosclerosis of native arteries of right leg with ulceration of other part of foot; L97.312 Non-pressure chronic ulcer of right ankle with fat layer exposed; L97.512 Non-pressure chronic ulcer of other part of right foot with fat layer exposed; L53.8 Other specified erythematous conditions; R60.0 Localized edema; Z79.01 Long term (current) use of anticoagulants
CPT/HCPCS: 11042

== ENCOUNTER → 2025-01-02 08:56 | Outpatient (CLI) | payer SELFPAY ==
[2024-04-17 12:15] VITALS: PULSE 98; RESP 14; O2SAT 97; BMI 24.2
== END ==
LOC: WC 08:59
PROVIDERS: PCP Registered Nurse Diabetes Educator; Referring Provider Registered Nurse Diabetes Educator; Visit Provider Surgery
DX: I70.233 Atherosclerosis of native arteries of right leg with ulceration of ankle (principal); I70.235 Atherosclerosis of native arteries of right leg with ulceration of other part of foot; L97.312 Non-pressure chronic ulcer of right ankle with fat layer exposed; L97.512 Non-pressure chronic ulcer of other part of right foot with fat layer exposed; L53.8 Other specified erythematous conditions; R60.0 Localized edema
CPT/HCPCS: 11042

== ENCOUNTER → 2025-01-10 14:33 | Outpatient (CLI) | payer MEDICARE, SELFPAY ==
[2024-04-17 12:15] VITALS: PULSE 98; RESP 14; O2SAT 97; BMI 24.2
== END ==
PROVIDERS: PCP Registered Nurse Diabetes Educator; Referring Provider Registered Nurse Diabetes Educator; Visit Provider Surgery
DX: I70.233 Atherosclerosis of native arteries of right leg with ulceration of ankle (principal); I70.235 Atherosclerosis of native arteries of right leg with ulceration of other part of foot; L97.312 Non-pressure chronic ulcer of right ankle with fat layer exposed; L97.512 Non-pressure chronic ulcer of other part of right foot with fat layer exposed; I73.9 Peripheral vascular disease, unspecified; L53.8 Other specified erythematous conditions; R60.0 Localized edema; L84 Corns and callosities; F17.200 Nicotine dependence, unspecified, uncomplicated
CPT/HCPCS: 11042; 99213

== ENCOUNTER → 2025-01-29 08:52 | Outpatient (CLI) | payer MEDICARE, SELFPAY ==
[2024-04-17 12:15] VITALS: PULSE 98; RESP 14; O2SAT 97; BMI 24.2
== END ==
LOC: WC 08:55
PROVIDERS: PCP Registered Nurse Diabetes Educator; Referring Provider Orthopaedic Surgery; Visit Provider Surgery
DX: I70.233 Atherosclerosis of native arteries of right leg with ulceration of ankle (principal); I70.235 Atherosclerosis of native arteries of right leg with ulceration of other part of foot; L97.312 Non-pressure chronic ulcer of right ankle with fat layer exposed; L97.512 Non-pressure chronic ulcer of other part of right foot with fat layer exposed; L53.8 Other specified erythematous conditions; L84 Corns and callosities
CPT/HCPCS: 11042

== ENCOUNTER → 2025-02-06 10:39 | Outpatient (CLI) | payer MEDICARE, SELFPAY ==
[2024-04-17 12:15] VITALS: PULSE 98; RESP 14; O2SAT 97; BMI 24.2
== END ==
LOC: WC 10:41
PROVIDERS: PCP Registered Nurse Diabetes Educator; Referring Provider Registered Nurse Diabetes Educator; Visit Provider Surgery
DX: I70.233 Atherosclerosis of native arteries of right leg with ulceration of ankle (principal); I70.235 Atherosclerosis of native arteries of right leg with ulceration of other part of foot; L97.312 Non-pressure chronic ulcer of right ankle with fat layer exposed; L97.512 Non-pressure chronic ulcer of other part of right foot with fat layer exposed; L53.8 Other specified erythematous conditions; R60.0 Localized edema; L84 Corns and callosities
CPT/HCPCS: 11042